=== PATIENT | female | born 1980 | race Caucasian/White ===

== ENCOUNTER 2020-11-17 15:53 | Inpatient (IN) | payer OTHER ==
[2020-11-17] VITALS (14 sets, daily range): BP systolic 85–141; BP diastolic 39–85
[~2020-11-17] VITALS: Ht 165.1 cm; Wt 93.9 kg
--- NOTE | 2020-11-17 16:09 | PDOC1 ---
History and Physical Date of Admission Date of Admission DATE: 11/17/20 TIME: 16:16 Identification/Chief Complaint Chief Complaint Confusion Source Source: Caregiver, Chart review History of Present Illness History of Present Illness Ms Phipps is a 40yo F w/ PMHx morbid obesity s/p gastric bypass ini 2008, alcohol use disorder, Anxiety, Depression, Hypertension, IBS, Kidney Stones, Pancreatitis, chronic back pain, and smoker who presented to [facility] ED in [place], [place] via EMS for altered mental status. Her called because patient has been on couch has been increasingly confused over the past 5 days. Per EMS report she had a fall a few days ago when she was intoxicated. EKG appears sinus tachycardia, heart rate [address] elevation or depression, no ectopy. Normal intervals. T waves unremarkable. CT chest abdomen pelvis revealed severe hepatic steatosis and cholelithiasis with hydropic gallbladder and gastric bypass, no other acute findings. CT head with no acute hemorrhage. Labs with WBC 7.5, Hb 6.4, platelets 237, Na 130, K 4.3, BUN 10, Cr 2.3, glucose 72, Trop 0, BNP 939, Albumin 1.8, INR 4.9, ammonia 44, bilirubin 11, AST 2744, ALT 400, Alk phos 172, Lipase 42 Given concern for acute liver failure and acute renal failure patient accepted for transfer to [facility] for specialist consultation. Seen bedside with her , patient following very few commands, otherwise drowsy, not oriented, moaning, not articulating well or making meaningful eye contact. notes that sometimes this might happen for a week at a time at home and frightens their 11 and 17 year old children. He notes "it has been a rough year". She was [facility] October after a DUI and parole violation of intoxication with alcohol that led to her serving 17 [place]. She has struggled with substance use disorder, specifically alcohol, according to her since her gastric bypass in 2008, has been previously treated for this as well as pancreatitis. Admitted to ICU for further treatment. Due to the inability to maintain a peripheral IV and concern for potential uncontrollable bleeding in the neck a right femoral central venous catheter was placed for medications, blood transfusion and lab draw purposes for frequent lab draws. Past Medical History Cardiovascular: HTN GI: GERD, GI bleed, Gastritis, Peptic Ulcer disease Psych: Anxiety, Addictions, Depression Past Surgical History Past Surgical History Gastric bypass, peptic ulcer Past Surgical History: Family History Family History: Family History Unknown Social History Smoke: 1 pack per day ALCOHOL: heavy Drugs: None Allergies Allergies: Coded Allergies: No Known Drug Allergies (Unverified , 11/17/20) ROS Review of System Unable to obtain due to confusiono Physical Exam General: Alert, Cooperative, moderate distress HEENT: EOMI, Other (Adentulous, icteric sclera) Lungs: Clear to auscultation, Normal air movement Heart: S1S2, RRR, no thrills, no rubs, no gallops, no murmurs Abdomen: Normal bowel sounds, Soft, Other (RUQ pain, slight fluid wave) Rectal Exam: not examined Extremities: No clubbing, No cyanosis, No edema, Normal pulses, No tenderness/swelling Skin: No rashes, No breakdown, No significant lesion Neuro: Sensation intact, Cranial nerves 3-12 NL, Reflexes 2+, Other (Moving all 4 limbs) Psych/Mental Status: Other (Obtunded) Images Images CT CHEST_ABDOMEN_ AND PELVIS WITHOUT CONTRAST 11/17/2020 10:51 AM INDICATION: Altered mental status, liver failure COMPARISON: CT abdomen/pelvis 03/05/2020 TECHNIQUE: Multiple axial CT images of the chest, abdomen and pelvis were obtained without intravenous contrast. Coronal and sagittal reformats are provided. FINDINGS: Evaluation degraded by motion artifact. Thyroid gland is normal in appearance. No pathologically enlarged thoracic lymph nodes. Heart size within normal limits. Thoracic aorta is normal in course and caliber. No pleural effusions, pulmonary vascular congestion or pneumothorax. Lungs are clear. No suspicious solid noncalcified pulmonary nodules. Severe hepatic steatosis. There is a hydropic gallbladder measuring 6.3 cm in transverse dimension. Cholelithiasis. Spleen and adrenal glands are normal in appearance. Mild atrophy of the pancreas. Abdominal aorta is normal in course and caliber. No pathologically enlarged lymph nodes are identified in abdomen and pelvis within the limitations of motion artifact. No free fluid or free intraperitoneal air. Gastric bypass post surgical changes. Bowel is partly limited by motion artifact. No bowel obstruction or inflammation. Limited evaluation of the appendix secondary to motion. Appendix is not definitively visualized. No pericecal inflammatory changes are identified. Uterus and adnexa are normal by CT. Wood catheter decompresses the urinary bladder. No calculi identified within the kidneys, ureters or urinary bladder. No hydronephrosis. No suspicious osseous abnormality is identified. Chronic appearing superior endplate compression deformities identified at L1 with percent height loss and superior endplate retropulsion. Schmorl's nodes are identified at T11-T12 with mild height loss. Vertebral segmentation anomaly identified at T9-T10 and T5-T6 as well as at the craniocervical junction. Findings are limited evaluation secondary motion. IMPRESSION: Evaluation is degraded by motion artifact. Severe hepatic steatosis. Correlate with hepatic enzymes to assess for steatohepatitis. Gastric bypass post surgical changes are identified without bowel obstruction or inflammation. Cholelithiasis with hydropic gallbladder. Correlate with right upper quadrant ultrasound assess for cholecystitis. 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 If there is persistent clinical concern, dedicated CT thoracic spine with sedation could be of benefit. CT HEAD AND MAXILLOFACIAL WO, CT CERVICAL SPINE WO History: Reason: fall, ams, face injury, jaundice / Spl. Instructions: Comparison: June 08, 2018 Technique: Noncontrast CT imaging was performed of the head, maxillofacial and cervical spine. Coronal and sagittal reconstructions were performed. Exposure: One or more of the following individualized dose reduction techniques were utilized for this examination: 1. Automated exposure control 2. Adjustment of the mA and/or kV according to patient size 3. Use of iterative reconstruction technique. Findings: Head CT: No intracranial hemorrhage. No mass effect. No hydrocephalus. Extra- axial spaces are unremarkable. Frontal scalp soft tissue wound. Maxillofacial CT: Motion degraded evaluation. The entire mandible not included in the image. No definite acute fracture although degraded evaluation especially concerned imaged portions of the mandible. Orbits are unremarkable. Paranasal sinuses and mastoid air cells are clear. No acute calvarial fracture. Cervical spine CT: Motion degraded evaluation. Right upper chest subcutaneous gas. Normal vertebral body alignment. Significantly degraded evaluation of the upper cervical spine and upper thoracic spine due to patient motion. No definite acute fracture. Mild degenerative disc changes. No significant canal narrowing. No definite neuroforaminal narrowing although evaluation is degraded. Soft tissues are unremarkable. Impression: Head CT: 1. No acute intracranial abnormality. Maxillofacial CT: 1. Degraded evaluation due to patient motion. The mandible is not entirely evaluated. No definite fracture. If persistent clinical concern, recommend repeat imaging. Cervical spine CT: CT HEAD AND MAXILLOFACIAL WO, CT CERVICAL SPINE WO History: Reason: fall, ams, face injury, jaundice / Spl. Instructions: Comparison: June 08, 2018 Technique: Noncontrast CT imaging was performed of the head, maxillofacial and cervical spine. Coronal and sagittal reconstructions were performed. Exposure: One or more of the following individualized dose reduction techniques were utilized for this examination: 1. Automated exposure control 2. Adjustment of the mA and/or kV according to patient size 3. Use of iterative reconstruction technique. Findings: Head CT: No intracranial hemorrhage. No mass effect. No hydrocephalus. Extra- axial spaces are unremarkable. Frontal scalp soft tissue wound. Maxillofacial CT: Motion degraded evaluation. The entire mandible not included in the image. No definite acute fracture although degraded evaluation especially concerned imaged portions of the mandible. Orbits are unremarkable. Paranasal sinuses and mastoid air cells are clear. No acute calvarial fracture. Cervical spine CT: Motion degraded evaluation. Right upper chest subcutaneous gas. Normal vertebral body alignment. Significantly degraded evaluation of the upper cervical spine and upper thoracic spine due to patient motion. No definite acute fracture. Mild degenerative disc changes. No significant canal narrowing. No definite neuroforaminal narrowing although evaluation is degraded. Soft tissues are unremarkable. Impression: Head CT: 1. No acute intracranial abnormality. Maxillofacial CT: 1. Degraded evaluation due to patient motion. The mandible is not entirely evaluated. No definite fracture. If persistent clinical concern, recommend repea t imaging. Cervical spine CT: 1. Significantly degraded evaluation due to patient motion. No definite fracture. Recommend repeat imaging when patient's condition allows. VTE Prophylaxis Ordered VTE Prophylaxis Devices: Yes VTE Pharmacological Prophylaxi: Contraindicated Assessment/Plan Assessment/Plan A/P: Acute metabolic encephalopathy - seems likely hepatic in origin due fatty liver and alcoholic liver disease likely. Lactulose enemas prn until confusion clears. Rectal tube. GI consulted Acute anemia - likely GI loss. H/o PUD per , unclear if this was an anastomotic ulcer or otherwise, he will obtain old medical records. Transfuse for Hb <7. Repeat Hb. IV PPI, IV octreotide Acute Renal failure - likely vasomotor nephropathy. Will fluid challenge with normal saline, prn daily colloidal fluid with albumin as well. Monitor renal function. may be hepatorenal Liver failure, acute - MELD score on admit is 40. GI consulted. Avoid hepatotoxins. No history of acetaminophen use per . Will maintain BP. Trend hepatic function Acute hepatitis - appears alcoholic. Will need to abstain from alcohol and needs referral to transplant histology aide in the future if safely discharged eventually Hyponatremia - likely hepatic vs hypovolemic. Will fluid challenge, monitor sodium. Overall worsens her prognosis Hydropic gallbladder - incidentally noted on CT. Ultrasound will better elucidate if this is acute cholecystitis Morbid obesity s/p gastric bypass in 2008 - no significant f/u with bariatrics per . Alcohol use disorder - ongoing. Will need counseling and abstinence as above Anxiety, Depression - will reconcile meds, when taking po can slowly reintroduce Hypertension - currently hypotensive. May start BB to decrease splanchnic blood flow when she can tolerate it Smoker - will elder counselor on cessation when patient is more alert FEN -NPO PPX - SCDs, PPI gtt FULL CODE Dispo - ICU for above CC time 49 minutes Justifications for Admission Other Justification RELL MCDANIEL MD Nov 17, 2020 16:09
[2020-11-17] MEDS ORDERED: 0.9 % SODIUM CHLORIDE 10 ML DISP.SYRIN. IV PRN (16:15)
[2020-11-17] MEDS ORDERED: LACTULOSE 20 GM/30 ML SOLUTION. PO PRN (16:15)
[2020-11-17] MEDS ORDERED: ONDANSETRON PF 4 MG/2 ML VIAL. IVP PRN (16:15)
[2020-11-17] MEDS ORDERED: BISACODYL 10 MG SUPP.RECT. PR PRN (16:15)
[2020-11-17] MEDS ORDERED: IV NORMAL SALINE 1000ML BAG 1,000 ML IV SCH (16:15)
[2020-11-17] MEDS ORDERED: PROCHLORPERAZINE 10 MG/2 ML VIAL. IVP PRN (16:15)
--- NOTE | 2020-11-17 16:49 | NUR ---
Patient admit from [facility]. Arrived at 1545 with 1 unit of prbc transfusing. Blood transfusion ended at 1618. VS wnl on room air. Dr Jean admitting, consults called to GI and Nephrology. Patient alert to self only. currently at bedside. Will monitor
[2020-11-17] MEDS ORDERED: LACTULOSE for RECTAL 200 GM/300 ML SOLUTION. PR SCH (18:00)
[2020-11-17] MEDS ORDERED: PANTOPRAZOLE IV PUSH 40 MG VIAL. IVP ONE (18:00)
[2020-11-17] MEDS: LACTULOSE for RECTAL 200 GM/300 ML SOLUTION. PR SCH ×3 (18:00→22:55)
[2020-11-17 18:18] LABS: HEMATOCRIT 20.8 % (36.0-47.0); HEMOGLOBIN 6.7 g/dL (12.0-15.5)
[2020-11-17] MEDS: SODIUM BICARBONATE VIAL 75 MEQ in IV 1/2 NORMAL SALINE 1,000 ML IV SCH (18:28)
[2020-11-17] MEDS: OCTREOTIDE 500 MCG in IV NORMAL SALINE 100ML 100 ML IV PRN (18:29)
[2020-11-17] MEDS ORDERED: MAGNESIUM SULFATE 2GM 50 ML IV ONE (18:30)
[2020-11-17] MEDS: PANTOPRAZOLE SODIUM IV DRIP 80 MG in IV NORMAL SALINE 100ML 100 ML IV SCH (18:37)
--- NOTE | 2020-11-17 21:55 | RAD ---
Examination: Ultrasound abdomen complete HISTORY: History of cirrhosis COMPARISON: None available FINDINGS: The aorta, spleen, IVC, pancreas are not well-visualized due to bowel gas. The liver length measures 17.4 cm . Increased echogenicity identified in the liver likely hepatic steatosis. Mild increased mateo ntified within the gallbladder likely sludge. The gallbladder is mildly distended. The gallbladder wa ll thickness measures 1.5 mm. The right kidney measures 10.7 x 6.9 x 3.9 cm. The left kidney measures 9.1 x 5.0 x 4.4 cm. IMPRESSION: 1. Hepatic steatosis. 2. Hydropic gallbladder with gallbladder sludge. Electronically signed by: Medhat Fernandes MD (11/17/2020 9:53 PM) [id number]
[2020-11-17 23:26] LABS: HEMATOCRIT 21.9 % (36.0-47.0); RED BLOOD COUNT 2.41 x10^6/uL (3.50-5.40); RED CELL DISTRIBUTION WIDTH 20.2 % (11.5-14.5); WHITE BLOOD COUNT 5.4 x10^3/uL (4.0-11.0)
[2020-11-18] VITALS (29 sets, daily range): BP systolic 83–151; BP diastolic 40–87
[2020-11-18] MEDS ORDERED: ALBUMIN HUMAN 5% 500 ML IV PRN (00:15)
[2020-11-18] MEDS: LACTULOSE for RECTAL 200 GM/300 ML SOLUTION. PR SCH ×12 (01:38→22:00)
[2020-11-18] MEDS: SODIUM BICARBONATE VIAL 75 MEQ in IV 1/2 NORMAL SALINE 1,000 ML IV SCH ×3 (02:04→20:21)
--- NOTE | 2020-11-18 02:09 | NUR ---
patient not tolerating lactulose every [address] full dose with dilution in rectal tube. Given every 2 hours. Will continue to monitor.
[2020-11-18] MEDS: OCTREOTIDE 500 MCG in IV NORMAL SALINE 100ML 100 ML IV PRN ×2 (02:45→12:43)
[2020-11-18] MEDS: PANTOPRAZOLE SODIUM IV DRIP 80 MG in IV NORMAL SALINE 100ML 100 ML IV SCH ×2 (02:46→14:00)
[2020-11-18 06:02] LABS: ALBUMIN 1.9 g/dL (3.4-5.0); ALBUMIN/GLOBULIN RATIO 0.7 (1.0-1.7); CREATININE 1.8 mg/dL (0.6-1.0); TOTAL PROTEIN 4.7 g/dL (6.4-8.2)
[2020-11-18 06:37] LABS: BASO % 0 % (0-3); EOS % 1 % (0-3); HEMATOCRIT 21.3 % (36.0-47.0); LYMPH # 0.6 x10^3/uL (1.0-4.8); LYMPH % 15 % (24-48); MEAN CORPUSCULAR HEMOGLOBIN 29 pg (25-35); MEAN CORPUSCULAR HGB CONC 32 g/dL (31-37); MEAN CORPUSCULAR VOLUME 91 fL (79-100); MONO # 0.4 x10^3/uL (0.0-1.1); MONO % 10 % (0-9); NEUT % 73 % (31-73); PLATELET COUNT 187 x10^3/uL (140-400); RED BLOOD COUNT 2.35 x10^6/uL (3.50-5.40); RED CELL DISTRIBUTION WIDTH 19.2 % (11.5-14.5)
[2020-11-18 06:51] LABS: HEMOGLOBIN 6.9 g/dL (12.0-15.5)
[2020-11-18 06:52] LABS: PROTHROMBIN TIME PATIENT 28.1 SEC (11.7-14.0)
[2020-11-18] MEDS ORDERED: PANTOPRAZOLE IV PUSH 40 MG VIAL. IVP SCH (07:30)
[2020-11-18] MEDS ORDERED: LACTULOSE 20 GM/30 ML SOLUTION. PO PRN ×2 (08:00→08:30)
--- NOTE | 2020-11-18 08:57 | PDOC ---
PROGRESS NOTES Date of Service: DATE: 11/18/20 TIME: 08:56 Chief Complaint Chief Complaint mpression: Head CT: 1. No acute intracranial abnormality. Maxillofacial CT: 1. Degraded evaluation due to patient motion. The mandible is not entirely evaluated. No definite fracture. If persistent clinical concern, recommend repeat imaging. Cervical spine CT: 1. Significantly degraded evaluation due to patient motion. No definite fracture. Recommend repeat imaging when patient's condition allows. VTE Prophylaxis Ordered VTE Prophylaxis Devices: Yes VTE Pharmacological Prophylaxi: Contraindicated Assessment/Plan Assessment/Plan A/P: Acute metabolic encephalopathy - seems likely hepatic in origin due fatty liver and alcoholic liver disease likely. Lactulose enemas prn until confusion clears. Rectal tube. GI consulted Acute anemia - likely GI loss. H/o PUD per , unclear if this was an anastomotic ulcer or otherwise, he will obtain old medical records. Transfuse for Hb <7. Repeat Hb. IV PPI, IV octreotide Acute Renal failure - likely vasomotor nephropathy. Will fluid challenge with normal saline, prn daily colloidal fluid with albumin as well. Monitor renal function. may be hepatorenal Liver failure, acute - MELD score on admit is 40. GI consulted. Avoid hepatotoxins. No history of acetaminophen use per . Will maintain BP. Trend hepatic function Acute hepatitis - appears alcoholic. Will need to abstain from alcohol and needs referral to transplant mycologist in the future if safely discharged eventually Hyponatremia - likely hepatic vs hypovolemic. Will fluid challenge, monitor sodium. Overall worsens her prognosis Hydropic gallbladder - incidentally noted on CT. Ultrasound will better elucidate if this is acute cholecystitis Hydropic gallbladder with gallbladder sludge. Morbid obesity s/p gastric bypass in 2008 - no significant f/u with bariatrics p er . Alcohol use disorder - ongoing. Will need counseling and abstinence as above Anxiety, Depression - will reconcile meds, when taking po can slowly reintroduce Hypertension - currently hypotensive. May start BB to decrease splanchnic blood flow when she can tolerate it Smoker - will queen's counsel on cessation when patient is more alert EARL severe protein-caloric malnutrition FEN -NPO PPX - SCDs, PPI gtt FULL CODE Dispo - ICU for above NEPHROLOGY CONSULT gen surgery consult re ct abdomen, abd pain ID CONSULT BLOOD CULT Emperic iv zosyn pending ID consult procalcitonin cxr neurology consult overall prognosis seems poor CC time 33 minutes Justifications for Admission Justifications for Admission Other Justification History of Present Illness History of Present Illness Identification/Chief Complaint Chief Complaint Confusion Source Source: Caregiver, Chart review History of Present Illness History of Present Illness Ms Phipps is a 40yo F w/ PMHx morbid obesity s/p gastric bypass ini 2008, alcohol use disorder, Anxiety, Depression, Hypertension, IBS, Kidney Stones, Rodriguez creatitis, chronic back pain, and smoker who presented to [facility] ED in [place], [place] via EMS for altered mental status. Her called because patient has been on couch has been increasingly confused over the past 5 days. Per EMS report she had a fall a few days ago when she was intoxicated. EKG appears sinus tachycardia, heart rate [address] elevation or depression, no ectopy. Normal intervals. T waves unremarkable. CT chest abdomen pelvis revealed severe hepatic steatosis and cholelithiasis with hydropic gallbladder and gastric bypass, no other acute findings. CT head with no acute hemorrhage. Labs with WBC 7.5, Hb 6.4, platelets 237, Na 130, K 4.3, BUN 10, Cr 2.3, glucose 72, Trop 0, BNP 939, Albumin 1.8, INR 4.9, ammonia 44, bilirubin 11, AST 2744, ALT 400, Alk phos 172, Lipase 42 Given concern for acute liver failure and acute renal failure patient accepted for transfer to [facility] for specialist consultation. Seen bedside with her , patient following very few commands, otherwise drowsy, not oriented, moaning, not articulating well or making meaningful eye contact. notes that sometimes this might happen for a week at a time at home and frightens their 11 and 17 year old children. He notes "it has been a rough year". She was released from incarceration in federal long term last October after a DUI and parole violation of intoxication with alcohol that led to her serving 17 months in federal long term [place]. She has struggled with substance use disorder, specifically alcohol, according to her since her gastric bypass in 2008, has been previously treated for this as well as pancreatitis. Admitted to ICU for further treatment. Due to the inability to maintain a peripheral IV and concern for potential uncontrollable bleeding in the neck a right femoral central venous catheter was placed for medications, blood transfusion and lab draw purposes for frequent lab draws. Past Medical History Cardiovascular: HTN GI: GERD, GI bleed, Gastritis, Peptic Ulcer disease Psych: Anxiety, Addictions, Depression Past Surgical History Past Surgical History Gastric bypass, peptic ulcer Past Surgical History: Family History Family History: Family History Unknown Social History Smoke: 1 pack per day ALCOHOL: heavy Drugs: None Allergies Allergies: Coded Allergies: No Known Drug Allergies (Unverified , 11/17/20) ROS Review of System Unable to obtain due to confusion, but c/o abd pain to me 11-18 VERY ANEMIC, HYPOTENSIVE OVERNIGHT ECHo pending, cardiology consulted nh4 pending ID CONSULT NEUROLOGY CONSULT Gen surg consult 34 min cc time Vitals Vitals Vital Signs Date Time Temp Pulse Resp B/P (MAP) Pulse Ox O2 Delivery O2 Flow Rate FiO2 11/18/20 06:00 87 14 138/63 (88) 96 Room Air 11/18/20 04:00 97.8 97.8 Physical Exam General: Alert, Cooperative, mild distress, moderate distress Heart: Regular rate Lungs: Clear Abdomen: Normal bowel sounds, Soft, Other (RUQ pain, slight fluid wave) Extremities: No clubbing, No cyanosis, No edema, Normal pulses, No tenderness/swelling Skin: No rashes, No breakdown, No significant lesion Labs LABS Examination: Ultrasound abdomen complete HISTORY: History of cirrhosis COMPARISON: None available FINDINGS: The aorta, spleen, IVC, pancreas are not well-visualized due to bowel gas. The liver length measures 17.4 cm . Increased echogenicity identified in the liver likely hepatic steatosis. Mild increased identified within the gallbladder likely sludge. The gallbladder is mildly distended. The gallbladder wall thickness measures 1.5 mm. The right kidney measures 10.7 x 6.9 x 3.9 cm. The left kidney measures 9.1 x 5.0 x 4.4 cm. IMPRESSION: 1. Hepatic steatosis. 2. Hydropic gallbladder with gallbladder sludge. Electronically signed by: Medhat Fernandes MD (11/17/2020 9:53 PM) [id number] Laboratory Tests Test 11/17/20 18:00 11/17/20 18:10 11/17/20 23:15 11/18/20 05:10 Hemoglobin 6.7 g/dL (12.0-15.5) 7.0 g/dL (12.0-15.5) 6.9 g/dL (12.0-15.5) Hematocrit 20.8 % (36.0-47.0) 21.9 % (36.0-47.0) 21.3 % (36.0-47.0) Mean Corpuscular Hemoglobin Concent 32 g/dL (31-37) 32 g/dL (31-37) 32 g/dL (31-37) Creatine Kinase 64 U/L (26-192) Hepatitis A IgM Antibody Nonreactive (Nonreactive) Hepatitis B Surface Antigen Nonreactive (Nonreactive) Hepatitis B Core IgM Antibody Nonreactive (Nonreactive) Hepatitis C IgG Antibody Nonreactive (Nonreactive) SARS-CoV-2 Antigen (Rapid) Negative (NEGATIVE) White Blood Count 5.4 x10^3/uL (4.0-11.0) 4.0 x10^3/uL (4.0-11.0) Red Blood Count 2.41 x10^6/uL (3.50-5.40) 2.35 x10^6/uL (3.50-5.40) Mean Corpuscular Volume 91 fL (79-100) 91 fL (79-100) Mean Corpuscular Hemoglobin 29 pg (25-35) 29 pg (25-35) Red Cell Distribution Width 20.2 % (11.5-14.5) 19.2 % (11.5-14.5) Platelet Count 218 x10^3/uL (140-400) 187 x10^3/uL (140-400) Neutrophils (%) (Auto) 73 % (31-73) Lymphocytes (%) (Auto) 15 % (24-48) Monocytes (%) (Auto) 10 % (0-9) Eosinophils (%) (Auto) 1 % (0-3) Basophils (%) (Auto) 0 % (0-3) Neutrophils # (Auto) 3.0 x10^3/uL (1.8-7.7) Lymphocytes # (Auto) 0.6 x10^3/uL (1.0-4.8) Monocytes # (Auto) 0.4 x10^3/uL (0.0-1.1) Eosinophils # (Auto) 0.0 x10^3/uL (0.0-0.7) Basophils # (Auto) 0.0 x10^3/uL (0.0-0.2) Prothrombin Time 28.1 SEC (11.7-14.0) Prothromb Time International Ratio 2.6 (0.8-1.1) Sodium Level 137 mmol/L (136-145) Potassium Level 4.0 mmol/L (3.5-5.1) Chloride Level 101 mmol/L (98-107) Carbon Dioxide Level 22 mmol/L (21-32) Anion Gap 14 (6-14) Blood Urea Nitrogen 10 mg/dL (7-20) Creatinine 1.8 mg/dL (0.6-1.0) Estimated GFR (Cockcroft-Gault) 31.0 BUN/Creatinine Ratio 6 (6-20) Glucose Level 73 mg/dL (70-99) Calcium Level 7.0 mg/dL (8.5-10.1) Total Bilirubin 9.0 mg/dL (0.2-1.0) Aspartate Amino Transf (AST/SGOT) 1172 U/L (15-37) Alanine Aminotransferase (ALT/SGPT) 234 U/L (14-59) Alkaline Phosphatase 142 U/L (46-116) Total Protein 4.7 g/dL (6.4-8.2) Albumin 1.9 g/dL (3.4-5.0) Albumin/Globulin Ratio 0.7 (1.0-1.7) Comment Review of Relevant I have reviewed the following items josue (where applicable) has been applied. Labs Laboratory Tests Test 11/17/20 18:00 11/17/20 18:10 11/17/20 23:15 11/18/20 05:10 Hemoglobin 6.7 g/dL (12.0-15.5) 7.0 g/dL (12.0-15.5) 6.9 g/dL (12.0-15.5) Hematocrit 20.8 % (36.0-47.0) 21.9 % (36.0-47.0) 21.3 % (36.0-47.0) Mean Corpuscular Hemoglobin Concent 32 g/dL (31-37) 32 g/dL (31-37) 32 g/dL (31-37) Creatine Kinase 64 U/L (26-192) Hepatitis A IgM Antibody Nonreactive (Nonreactive) Hepatitis B Surface Antigen Nonreactive (Nonreactive) Hepatitis B Core IgM Antibody Nonreactive (Nonreactive) Hepatitis C IgG Antibody Nonreactive (Nonreactive) SARS-CoV-2 Antigen (Rapid) Negative (NEGATIVE) White Blood Count 5.4 x10^3/uL (4.0-11.0) 4.0 x10^3/uL (4.0-11.0) Red Blood Count 2.41 x10^6/uL (3.50-5.40) 2.35 x10^6/uL (3.50-5.40) Mean Corpuscular Volume 91 fL (79-100) 91 fL (79-100) Mean Corpuscular Hemoglobin 29 pg (25-35) 29 pg (25-35) Red Cell Distribution Width 20.2 % (11.5-14.5) 19.2 % (11.5-14.5) Platelet Count 218 x10^3/uL (140-400) 187 x10^3/uL (140-400) Neutrophils (%) (Auto) 73 % (31-73) Lymphocytes (%) (Auto) 15 % (24-48) Monocytes (%) (Auto) 10 % (0-9) Eosinophils (%) (Auto) 1 % (0-3) Basophils (%) (Auto) 0 % (0-3) Neutrophils # (Auto) 3.0 x10^3/uL (1.8-7.7) Lymphocytes # (Auto) 0.6 x10^3/uL (1.0-4.8) Monocytes # (Auto) 0.4 x10^3/uL (0.0-1.1) Eosinophils # (Auto) 0.0 x10^3/uL (0.0-0.7) Basophils # (Auto) 0.0 x10^3/uL (0.0-0.2) Prothrombin Time 28.1 SEC (11.7-14.0) Prothromb Time International Ratio 2.6 (0.8-1.1) Sodium Level 137 mmol/L (136-145) Potassium Level 4.0 mmol/L (3.5-5.1) Chloride Level 101 mmol/L (98-107) Carbon Dioxide Level 22 mmol/L (21-32) Anion Gap 14 (6-14) Blood Urea Nitrogen 10 mg/dL (7-20) Creatinine 1.8 mg/dL (0.6-1.0) Estimated GFR (Cockcroft-Gault) 31.0 BUN/Creatinine Ratio 6 (6-20) Glucose Level 73 mg/dL (70-99) Calcium Level 7.0 mg/dL (8.5-10.1) Total Bilirubin 9.0 mg/dL (0.2-1.0) Aspartate Amino Transf (AST/SGOT) 1172 U/L (15-37) Alanine Aminotransferase (ALT/SGPT) 234 U/L (14-59) Alkaline Phosphatase 142 U/L (46-116) Total Protein 4.7 g/dL (6.4-8.2) Albumin 1.9 g/dL (3.4-5.0) Albumin/Globulin Ratio 0.7 (1.0-1.7) Laboratory Tests Test 11/17/20 18:00 11/17/20 18:10 11/17/20 23:15 11/18/20 05:10 Hemoglobin 6.7 g/dL (12.0-15.5) 7.0 g/dL (12.0-15.5) 6.9 g/dL (12.0-15.5) Hematocrit 20.8 % (36.0-47.0) 21.9 % (36.0-47.0) 21.3 % (36.0-47.0) Mean Corpuscular Hemoglobin Concent 32 g/dL (31-37) 32 g/dL (31-37) 32 g/dL (31-37) Creatine Kinase 64 U/L (26-192) Hepatitis A IgM Antibody Nonreactive (Nonreactive) Hepatitis B Surface Antigen Nonreactive (Nonreactive) Hepatitis B Core IgM Antibody Nonreactive (Nonreactive) Hepatitis C IgG Antibody Nonreactive (Nonreactive) SARS-CoV-2 Antigen (Rapid) Negative (NEGATIVE) White Blood Count 5.4 x10^3/uL (4.0-11.0) 4.0 x10^3/uL (4.0-11.0) Red Blood Count 2.41 x10^6/uL (3.50-5.40) 2.35 x10^6/uL (3.50-5.40) Mean Corpuscular Volume 91 fL (79-100) 91 fL (79-100) Mean Corpuscular Hemoglobin 29 pg (25-35) 29 pg (25-35) Red Cell Distribution Width 20.2 % (11.5-14.5) 19.2 % (11.5-14.5) Platelet Count 218 x10^3/uL (140-400) 187 x10^3/uL (140-400) Neutrophils (%) (Auto) 73 % (31-73) Lymphocytes (%) (Auto) 15 % (24-48) Monocytes (%) (Auto) 10 % (0-9) Eosinophils (%) (Auto) 1 % (0-3) Basophils (%) (Auto) 0 % (0-3) Neutrophils # (Auto) 3.0 x10^3/uL (1.8-7.7) Lymphocytes # (Auto) 0.6 x10^3/uL (1.0-4.8) Monocytes # (Auto) 0.4 x10^3/uL (0.0-1.1) Eosinophils # (Auto) 0.0 x10^3/uL (0.0-0.7) Basophils # (Auto) 0.0 x10^3/uL (0.0-0.2) Prothrombin Time 28.1 SEC (11.7-14.0) Prothromb Time International Ratio 2.6 (0.8-1.1) Sodium Level 137 mmol/L (136-145) Potassium Level 4.0 mmol/L (3.5-5.1) Chloride Level 101 mmol/L (98-107) Carbon Dioxide Level 22 mmol/L (21-32) Anion Gap 14 (6-14) Blood Urea Nitrogen 10 mg/dL (7-20) Creatinine 1.8 mg/dL (0.6-1.0) Estimated GFR (Cockcroft-Gault) 31.0 BUN/Creatinine Ratio 6 (6-20) Glucose Level 73 mg/dL (70-99) Calcium Level 7.0 mg/dL (8.5-10.1) Total Bilirubin 9.0 mg/dL (0.2-1.0) Aspartate Amino Transf (AST/SGOT) 1172 U/L (15-37) Alanine Aminotransferase (ALT/SGPT) 234 U/L (14-59) Alkaline Phosphatase 142 U/L (46-116) Total Protein 4.7 g/dL (6.4-8.2) Albumin 1.9 g/dL (3.4-5.0) Albumin/Globulin Ratio 0.7 (1.0-1.7) Medications Current Medications Lorazepam (Ativan Inj) 0.5 mg PRN Q6HRS PRN IVP ANXIETY / AGITATION Last administered on 11/17/20at 23:04; Start 11/17/20 at 16:15 Ondansetron HCl (Zofran) 4 mg PRN Q6HRS PRN IVP NAUSEA/VOMITING; Start 11/17/20 at 16:15 Prochlorperazine Edisylate (Compazine) 5 mg PRN Q6HRS PRN IVP NAUSEA/VOMITING; Start 11/17/20 at 16:15 Info (Icu Electrolyte Protocol) 1 ea DAILY MC ; Start 11/18/20 at 09:00 Sodium Chloride (Normal Saline Flush) 3 ml QSHIFT PRN IV AFTER MEDS AND BLOOD DRAWS; Start 11/17/20 at 16:15 Sodium Chloride 1,000 ml @ 1,000 mls/hr Q1H IV Last administered on 11/17/20at 17:50; Start 11/17/20 at 16:15; Stop 11/17/20 at 17:14; Status DC Fentanyl Citrate (Fentanyl 2ml Vial) 25 mcg PRN Q1HR PRN IV SEVERE PAIN 7-10; Start 11/17/20 at 16:15 Lactulose (Lactulose) 20 gm PRN Q12HR PRN PO CONSTIPATION; Start 11/17/20 at 16:15; Stop 11/17/20 at 17:40; Status DC Bisacodyl (Dulcolax Supp) 10 mg PRN DAILY PRN NE CONSTIPATION; Start 11/17/20 at 16:15 Pantoprazole Sodium (PROTONIX VIAL for IV PUSH) 40 mg DAILYAC IVP ; Start 11/18/20 at 07:30; Stop 11/17/20 at 17:40; Status DC Lactulose (LACTULOSE 300ML for RECTAL) 200 gm Q6HRS NE ; Start 11/17/20 at 18:00; Stop 11/17/20 at 17:40; Status DC Sodium Bicarbonate 75 meq/Sodium Chloride 1,075 ml @ 125 mls/hr Q8H36M IV Last administered on 11/18/20at 02:04; Start 11/17/20 at 17:00 Pantoprazole Sodium (PROTONIX VIAL for IV PUSH) 80 mg 1X ONCE IVP Last administered on 11/17/20at 17:50; Start 11/17/20 at 18:00; Stop 11/17/20 at 18:01; Status DC Pantoprazole Sodium 80 mg/ Sodium Chloride 100 ml @ 10 mls/hr Q10H IV Last administered on 11/18/20at 02:46; Start 11/17/20 at 18:00 Octreotide Acetate 500 mcg/ Sodium Chloride 101 ml @ 10.1 mls/hr CONT PRN IV SEE I/O RECORD Last administered on 11/18/20at 02:45; Start 11/17/20 at 17:30 Lactulose (LACTULOSE 300ML for RECTAL) 200 gm Q2HR NE Last administered on 11/17/20at 22:55; Start 11/17/20 at 18:00 Magnesium Sulfate 50 ml @ 25 mls/hr 1X ONCE IV Last administered on 11/17/20at 18:34; Start 11/17/20 at 18:30; Stop 11/17/20 at 20:29; Status DC Albumin Human 500 ml @ 125 mls/hr PRN DAILY PRN IV HYPOTENSION Last administered on 11/18/20at 01:47; Start 11/18/20 at 00:15 Multivitamins 10 ml/Thiamine HCl 100 mg/Folic Acid 1 mg/Sodium Chloride 1,011.2 ml @ 100 mls/ hr DAILY IV ; Start 11/18/20 at 09:00; Stop 11/22/20 at 19:07 Thiamine HCl 100 mg/Dextrose 51 ml @ 100 mls/hr DAILY IV ; Start 11/23/20 at 09:00; Stop 11/27/20 at 09:31 Lorazepam (Ativan) 2 mg Q6H PO ; Start 11/18/20 at 08:00; Stop 11/19/20 at 14:01 Lactulose (Lactulose) 30 gm PRN DAILY PRN PO GI SYMPTOMS; Start 11/18/20 at 08:00; Status UNV Lactulose (Lactulose) 30 gm PRN DAILY PRN PO GI SYMPTOMS; Start 11/18/20 at 08:30; Status UNV Vitals/I & O Vital Sign - Last 24 Hours 11/17/20 11/17/20 11/17/2011/17/21 15:45 16:00 16:00 16:15 Temp 98.0 98.0 Pulse 112 108 96 Resp 20 16 18 B/P (MAP) 126/64 (84) 103/66 (78) 112/52 (72) Pulse Ox 100 100 98 O2 Delivery Room Air Room Air Room Air Room Air 11/17/20 11/17/20 11/17/20 11/17/20 16:30 16:45 17:00 17:30 Pulse 92 94 96 88 Resp 20 20 16 16 B/P (MAP) 112/60 (77) 110/58 (75) 116/61 (79) 109/57 (74) Pulse Ox 100 100 100 97 O2 Delivery Room Air Room Air Room Air Room Air 11/17/20 11/17/20 11/17/20 11/17/20 18:00 18:30 19:00 20:00 Pulse 104 116 94 Resp 18 16 18 B/P (MAP) 134/85 (101) 141/77 (98) 89/50 (63) Pulse Ox 99 100 97 O2 Delivery Room Air Room Air Room Air Room Air 11/17/20 11/17/20 11/17/20 11/17/20 20:00 21:00 22:00 23:00 Temp 97.6 97.6 Pulse 109 93 92 106 Resp 24 18 16 14 B/P (MAP) 108/79 (89) 113/64 (80) 85/39 (54) 98/62 (74) Pulse Ox 100 98 99 98 O2 Delivery Room Air Room Air Room Air Room Air 11/17/20 11/18/20 11/18/20 11/18/20 23:59 00:01 01:00 01:28 Temp 98.5 98.7 98.5 98.7 Pulse 89 92 93 Resp 14 14 16 B/P (MAP) 86/49 (61) 83/43 (56) 87/40 Pulse Ox 97 98 O2 Delivery Room Air Room Air Room Air 11/18/20 11/18/20 11/18/20 11/18/20 01:45 02:00 02:02 03:00 Temp 98.1 98.2 98.1 98.2 Pulse 90 93 90 94 Resp 14 14 16 14 B/P (MAP) 83/43 98/50 (66) 98/50 104/47 (66) Pulse Ox 98 96 O2 Delivery Room Air Room Air 11/18/20 11/18/20 11/18/20 11/18/20 03:26 04:00 04:00 05:00 Temp 97.8 97.8 97.8 97.8 Pulse 91 90 91 Resp 14 14 14 B/P (MAP) 104/52 93/49 (64) 104/45 (64) Pulse Ox 95 98 O2 Delivery Room Air Room Air Room Air 11/18/20 06:00 Pulse 87 Resp 14 B/P (MAP) 138/63 (88) Pulse Ox 96 O2 Delivery Room Air Intake and Output 11/17/20 11/17/20 11/18/20 15:00 23:00 07:00 Intake Total 50 ml 2440.1 ml Output Total 135 ml 95 ml Balance -85 ml 2345.1 ml Justicifation of Admission Dx: Justifications for Admission: Justification of Admission Dx: Yes Sepsis: Altered Mental Status Altered Mental Status: Altered Mental Status Comments: acute hepatic failure FUENTES MAIER MD Nov 18, 2020 08:57
[2020-11-18] MEDS: ELECTROLYTE (ICU) PROTOCOL. MC SCH (09:00)
[2020-11-18] MEDS: MULTIVIT INFUSN,ADULT 4,VIT K 10 ML, THIAMINE INJ 100 MG, FOLIC ACID INJ 1 MG in IV NOR... IV SCH (09:23)
[2020-11-18] MEDS ORDERED: PIP/TAZO PER PHARMACY MC PRN (12:00)
[2020-11-18] MEDS ORDERED: PHYTONADIONE 10 MG/ML AMPUL. SQ ONE (12:15)
[2020-11-18] MEDS: PIPERACILLIN/TAZOBACTAM 3.375 GM in IV NORMAL SALINE 50ML 50 ML IV SCH ×2 (12:54→18:11)
--- NOTE | 2020-11-18 12:55 | PDOC2 ---
CONSULT Date of Consult Date of Consult DATE: 11/18/20 TIME: 12:55 Reason for Consult Reason for Consult: EARL, Oliguria Referring Physician Referring Physician: Ted Identification/Chief Complaint Chief Complaint Confusion Source Source: Chart review History of Present Illness Reason for Visit: Ms Phipps is a 40yo female with chart reviewed PMHx of previous morbid obesity s/p gastric bypass ini 2008, alcohol use disorder, Anxiety, Depression, Hypertension, IBS, Kidney Stones, Pancreatitis, chronic back pain, and smoker who presented to [facility] ED in [place], [place] via EMS for altered mental status. Reportedly EMS was called by her because patient has been on couch has been increasingly confused over the past 5 days. Per EMS report she had a fall a few days ago when she was intoxicated. She was initially taken to [facility] ED and was found to be in renal failure and eventually transferred here. She is also noted to be severely jaundiced. CT chest abdomen pelvis were done at [facility], formal report of the same is not available to me but appears to have revealed severe hepatic steatosis and cholelithiasis with hydropic gallbladder and gastric bypass, no other acute findings. (As per documentation by Dr. Jean which I have reviewed) She was also noted to have a Hb 6.4, BUN 10, Cr 2.3, Albumin 1.8, and severely elevated LFTs and bilirubin. I was called with these labs by her ICU nurse yesterday for a stat consult regarding oliguria. IV fluid boluses had been ordered IV albumin had also been ordered. I changed her fluids to bicarb containing fluids due to prior low bicarb levels. This morning she is not felt to be very alert oriented per se. She is drowsy but appears to have received sedating medications as part of the CIWA protocol. Urine output has remained scant despite IV fluids running at approximately 200-2 and 50 cc an hour. She has received blood transfusion also at this time. CPK was only 64. Past Medical History Cardiovascular: HTN GI: GERD, GI bleed, Gastritis, Peptic Ulcer disease Psych: Anxiety, Addictions, Depression Past Surgical History Past Surgical History: Family History Family History: Family History Unknown Social History 1 pack per day ALCOHOL: heavy Drugs: None Current Medications Current Medications Current Medications Lorazepam (Ativan Inj) 0.5 mg PRN Q6HRS PRN IVP ANXIETY / AGITATION Last administered on 11/17/20at 23:04; Start 11/17/20 at 16:15 Ondansetron HCl (Zofran) 4 mg PRN Q6HRS PRN IVP NAUSEA/VOMITING; Start 11/17/20 at 16:15 Prochlorperazine Edisylate (Compazine) 5 mg PRN Q6HRS PRN IVP NAUSEA/VOMITING; Start 11/17/20 at 16:15 Info (Icu Electrolyte Protocol) 1 ea DAILY MC ; Start 11/18/20 at 09:00 Sodium Chloride (Normal Saline Flush) 3 ml QSHIFT PRN IV AFTER MEDS AND BLOOD DRAWS; Start 11/17/20 at 16:15 Sodium Chloride 1,000 ml @ 1,000 mls/hr Q1H IV Last administered on 11/17/20at 17:50; Start 11/17/20 at 16:15; Stop 11/17/20 at 17:14; Status DC Fentanyl Citrate (Fentanyl 2ml Vial) 25 mcg PRN Q1HR PRN IV SEVERE PAIN 7-10; Start 11/17/20 at 16:15 Lactulose (Lactulose) 20 gm PRN Q12HR PRN PO CONSTIPATION; Start 11/17/20 at 16:15; Stop 11/17/20 at 17:40; Status DC Bisacodyl (Dulcolax Supp) 10 mg PRN DAILY PRN MD CONSTIPATION; Start 11/17/20 at 16:15 Pantoprazole Sodium (PROTONIX VIAL for IV PUSH) 40 mg DAILYAC IVP ; Start 11/18/20 at 07:30; Stop 11/17/20 at 17:40; Status DC Lactulose (LACTULOSE 300ML for RECTAL) 200 gm Q6HRS MD ; Start 11/17/20 at 18:00; Stop 11/17/20 at 17:40; Status DC Sodium Bicarbonate 75 meq/Sodium Chloride 1,075 ml @ 125 mls/hr Q8H36M IV Last administered on 11/18/20at 12:42; Start 11/17/20 at 17:00 Pantoprazole Sodium (PROTONIX VIAL for IV PUSH) 80 mg 1X ONCE IVP Last administered on 11/17/20at 17:50; Start 11/17/20 at 18:00; Stop 11/17/20 at 18:01; Status DC Pantoprazole Sodium 80 mg/ Sodium Chloride 100 ml @ 10 mls/hr Q10H IV Last administered on 11/18/20at 02:46; Start 11/17/20 at 18:00 Octreotide Acetate 500 mcg/ Sodium Chloride 101 ml @ 10.1 mls/hr CONT PRN IV SEE I/O RECORD Last administered on 11/18/20at 12:43; Start 11/17/20 at 17:30 Lactulose (LACTULOSE 300ML for RECTAL) 200 gm Q2HR MD Last administered on 11/18/20at 12:00; Start 11/17/20 at 18:00 Magnesium Sulfate 50 ml @ 25 mls/hr 1X ONCE IV Last administered on 11/17/20at 18:34; Start 11/17/20 at 18:30; Stop 11/17/20 at 20:29; Status DC Albumin Human 500 ml @ 125 mls/hr PRN DAILY PRN IV HYPOTENSION Last administered on 11/18/20at 01:47; Start 11/18/20 at 00:15 Multivitamins 10 ml/Thiamine HCl 100 mg/Folic Acid 1 mg/Sodium Chloride 1,011.2 ml @ 100 mls/ hr DAILY IV Last administered on 11/18/20at 09:23; Start 11/18/20 at 09:00; Stop 11/22/20 at 19:07 Thiamine HCl 100 mg/Dextrose 51 ml @ 100 mls/hr DAILY IV ; Start 11/23/20 at 09:00; Stop 11/27/20 at 09:31 Lorazepam (Ativan) 2 mg Q6H PO ; Start 11/18/20 at 08:00; Stop 11/19/20 at 14:01 Lactulose (Lactulose) 30 gm PRN DAILY PRN PO GI SYMPTOMS; Start 11/18/20 at 08:00; Status UNV Lactulose (Lactulose) 30 gm PRN DAILY PRN PO GI SYMPTOMS; Start 11/18/20 at 08:30; Status UNV Piperacillin Sod/ Tazobactam Sod (Zosyn Per Pharmacy) 1 each PRN DAILY PRN MC SEE COMMENTS; Start 11/18/20 at 12:00 Piperacillin Sod/ Tazobactam Sod 3.375 gm/Sodium Chloride 50 ml @ 100 mls/hr Q6HRS IV ; Start 11/18/20 at 12:00 Phytonadione (Vitamin K Ampule) 5 mg 1X ONCE SQ Last administered on 11/18/20at 12:50; Start 11/18/20 at 12:15; Stop 11/18/20 at 12:16; Status DC Allergies Allergies: Coded Allergies: No Known Drug Allergies (Unverified , 11/17/20) ROS Review of System Unable to obtain from the patient Physical Exam Physical Exam General Appearance: Drowsy and asleep, unable to awaken In no visible respiratory distress Eyes: Scleral icterus is noted conjunctiva Normal EN: No EN Drainage Mucous Memb. Appears dry Neck: no JVD no JVP Supple no palpable thyromegaly CVS: S1 S2 no murmur No Gallop No Rub no edema marginally tachycardic Resp: no Rales no Rhonchi no Acc. Muscle use GI: BS hypoactive NO Bruit somewhat tender Non Distended : no CVA tenderness; no Suprapubic Tenderness SKIN: No visible petechial rashes Breast Exam deferred Mu.Sk: Adequate passive ROM no muscle Atrophy Heme: Unable to palpate Obvious LAD no palpable splenomegaly NEURO: Appears to have adequate Strength and Tone unable to assess, no asterixis Psych: Unable to assess due to altered mental status and possible underlying encephalopathy Vital Signs Vital Signs Date Time Temp Pulse Resp B/P (MAP) Pulse Ox O2 Delivery O2 Flow Rate FiO2 11/18/20 11:00 89 20 114/63 (80) 95 Room Air 11/18/20 09:53 98.2 98.2 Assessment & Plan EARL/possible ATN cannot be ruled out. Current FLuid and E-lyte status does not necessitate emergent need for Dialysis. Will re-evaluate for Dialysis in am if no further response to volume repletion. Doubt acute oxalosis per se Intravascular volume depletion: Continue IV fluids Metabolic acidosis at presentation: Now with IV fluids with bicarb Oligoanuria: Possible ATN versus hepatorenal state versus pigment nephropathy. Other etiologies cannot be ruled out. Anticipate need for dialysis if oliguria continues despite adequate volume repletion Severe hypoalbuminemia: IV albumin as needed Anemia: Defer to GI to evaluate and treat Possible acute alcoholic hepatitis in the setting of fatty liver Discussed with ICU nurse at bedside Labs Labs Laboratory Tests Test 11/17/20 18:00 11/17/20 18:10 4/16/21 23:15 11/18/20 05:10 Hemoglobin 6.7 g/dL (12.0-15.5) 7.0 g/dL (12.0-15.5) 6.9 g/dL (12.0-15.5) Hematocrit 20.8 % (36.0-47.0) 21.9 % (36.0-47.0) 21.3 % (36.0-47.0) Mean Corpuscular Hemoglobin Concent 32 g/dL (31-37) 32 g/dL (31-37) 32 g/dL (31-37) Creatine Kinase 64 U/L (26-192) Hepatitis A IgM Antibody Nonreactive (Nonreactive) Hepatitis B Surface Antigen Nonreactive (Nonreactive) Hepatitis B Core IgM Antibody Nonreactive (Nonreactive) Hepatitis C IgG Antibody Nonreactive (Nonreactive) SARS-CoV-2 Antigen (Rapid) Negative (NEGATIVE) White Blood Count 5.4 x10^3/uL (4.0-11.0) 4.0 x10^3/uL (4.0-11.0) Red Blood Count 2.41 x10^6/uL (3.50-5.40) 2.35 x10^6/uL (3.50-5.40) Mean Corpuscular Volume 91 fL (79-100) 91 fL (79-100) Mean Corpuscular Hemoglobin 29 pg (25-35) 29 pg (25-35) Red Cell Distribution Width 20.2 % (11.5-14.5) 19.2 % (11.5-14.5) Platelet Count 218 x10^3/uL (140-400) 187 x10^3/uL (140-400) Neutrophils (%) (Auto) 73 % (31-73) Lymphocytes (%) (Auto) 15 % (24-48) Monocytes (%) (Auto) 10 % (0-9) Eosinophils (%) (Auto) 1 % (0-3) Basophils (%) (Auto) 0 % (0-3) Neutrophils # (Auto) 3.0 x10^3/uL (1.8-7.7) Lymphocytes # (Auto) 0.6 x10^3/uL (1.0-4.8) Monocytes # (Auto) 0.4 x10^3/uL (0.0-1.1) Eosinophils # (Auto) 0.0 x10^3/uL (0.0-0.7) Basophils # (Auto) 0.0 x10^3/uL (0.0-0.2) Prothrombin Time 28.1 SEC (11.7-14.0) Prothromb Time International Ratio 2.6 (0.8-1.1) Sodium Level 137 mmol/L (136-145) Potassium Level 4.0 mmol/L (3.5-5.1) Chloride Level 101 mmol/L (98-107) Carbon Dioxide Level 22 mmol/L (21-32) Anion Gap 14 (6-14) Blood Urea Nitrogen 10 mg/dL (7-20) Creatinine 1.8 mg/dL (0.6-1.0) Estimated GFR (Cockcroft-Gault) 31.0 BUN/Creatinine Ratio 6 (6-20) Glucose Level 73 mg/dL (70-99) Calcium Level 7.0 mg/dL (8.5-10.1) Total Bilirubin 9.0 mg/dL (0.2-1.0) Aspartate Amino Transf (AST/SGOT) 1172 U/L (15-37) Alanine Aminotransferase (ALT/SGPT) 234 U/L (14-59) Alkaline Phosphatase 142 U/L (46-116) Total Protein 4.7 g/dL (6.4-8.2) Albumin 1.9 g/dL (3.4-5.0) Albumin/Globulin Ratio 0.7 (1.0-1.7) Laboratory Tests Test 11/17/20 18:00 11/17/20 18:10 11/17/20 23:15 11/18/20 05:10 Hemoglobin 6.7 g/dL (12.0-15.5) 7.0 g/dL (12.0-15.5) 6.9 g/dL (12.0-15.5) Hematocrit 20.8 % (36.0-47.0) 21.9 % (36.0-47.0) 21.3 % (36.0-47.0) Mean Corpuscular Hemoglobin Concent 32 g/dL (31-37) 32 g/dL (31-37) 32 g/dL (31-37) Creatine Kinase 64 U/L (26-192) Hepatitis A IgM Antibody Nonreactive (Nonreactive) Hepatitis B Surface Antigen Nonreactive (Nonreactive) Hepatitis B Core IgM Antibody Nonreactive (Nonreactive) Hepatitis C IgG Antibody Nonreactive (Nonreactive) SARS-CoV-2 Antigen (Rapid) Negative (NEGATIVE) White Blood Count 5.4 x10^3/uL (4.0-11.0) 4.0 x10^3/uL (4.0-11.0) Red Blood Count 2.41 x10^6/uL (3.50-5.40) 2.35 x10^6/uL (3.50-5.40) Mean Corpuscular Volume 91 fL (79-100) 91 fL (79-100) Mean Corpuscular Hemoglobin 29 pg (25-35) 29 pg (25-35) Red Cell Distribution Width 20.2 % (11.5-14.5) 19.2 % (11.5-14.5) Platelet Count 218 x10^3/uL (140-400) 187 x10^3/uL (140-400) Neutrophils (%) (Auto) 73 % (31-73) Lymphocytes (%) (Auto) 15 % (24-48) Monocytes (%) (Auto) 10 % (0-9) Eosinophils (%) (Auto) 1 % (0-3) Basophils (%) (Auto) 0 % (0-3) Neutrophils # (Auto) 3.0 x10^3/uL (1.8-7.7) Lymphocytes # (Auto) 0.6 x10^3/uL (1.0-4.8) Monocytes # (Auto) 0.4 x10^3/uL (0.0-1.1) Eosinophils # (Auto) 0.0 x10^3/uL (0.0-0.7) Basophils # (Auto) 0.0 x10^3/uL (0.0-0.2) Prothrombin Time 28.1 SEC (11.7-14.0) Prothromb Time International Ratio 2.6 (0.8-1.1) Sodium Level 137 mmol/L (136-145) Potassium Level 4.0 mmol/L (3.5-5.1) Chloride Level 101 mmol/L (98-107) Carbon Dioxide Level 22 mmol/L (21-32) Anion Gap 14 (6-14) Blood Urea Nitrogen 10 mg/dL (7-20) Creatinine 1.8 mg/dL (0.6-1.0) Estimated GFR (Cockcroft-Gault) 31.0 BUN/Creatinine Ratio 6 (6-20) Glucose Level 73 mg/dL (70-99) Calcium Level 7.0 mg/dL (8.5-10.1) Total Bilirubin 9.0 mg/dL (0.2-1.0) Aspartate Amino Transf (AST/SGOT) 1172 U/L (15-37) Alanine Aminotransferase (ALT/SGPT) 234 U/L (14-59) Alkaline Phosphatase 142 U/L (46-116) Total Protein 4.7 g/dL (6.4-8.2) Albumin 1.9 g/dL (3.4-5.0) Albumin/Globulin Ratio 0.7 (1.0-1.7) Review All relevant outside records, renal labs, imaging studies, telemetry/EKG's were reviewed. Images Images Abdominal ultrasound from 11/17/2020: FINDINGS: The aorta, spleen, IVC, pancreas are not well-visualized due to bowel gas. The liver length measures 17.4 cm . Increased echogenicity identified in the liver likely hepatic steatosis. Mild increased identified within the gallbladder likely sludge. The gallbladder is mildly distended. The gallbladder wall thickness measures 1.5 mm. The right kidney measures 10.7 x 6.9 x 3.9 cm. The left kidney measures 9.1 x 5.0 x 4.4 cm. IMPRESSION: 1. Hepatic steatosis. 2. Hydropic gallbladder with gallbladder sludge. ROVERTO MALCOLM MD Nov 18, 2020 12:55
[2020-11-18 13:51] LABS: HEMATOCRIT 24.8 % (36.0-47.0); HEMOGLOBIN 8.1 g/dL (12.0-15.5)
--- NOTE | 2020-11-18 14:03 | PDOC2 ---
GI CONSULT Reason For Consult: anemia and elevated lfts HPI: HPI: 40yo F w/ PMHx gastric ulcer and heavy NSAID use with morbid obesity s/p gastric bypass ini 2008, alcohol use disorder, Anxiety, Depression, Hypertension, IBS, Kidney Stones, Pancreatitis, chronic back pain, and smoker who presented to [facility] ED in [place], [place] via EMS for altered mental status. Her called because patient has been on couch has been increasingly confused over the past 5 days. Per EMS report she had a fall a few days ago when she was intoxicated. Labs with WBC 7.5, Hb 6.4, platelets 237, Na 130, K 4.3, BUN 10, Cr 2.3, glucose 72, Trop 0, BNP 939, Albumin 1.8, INR 4.9, ammonia 44, bilirubin 11, AST 2744, ALT 400, Alk phos 172, Lipase 42. She recevied one unit of blood overnight and Hgb went to 7 now 6.9. Acute heptatitis panel and COVID tests have been negative. She was placed on PPI gtts and octreotide yesterday. She received an additional unit of PRBCs today and followup Hgb is pending. Abd sono with1. Hepatic steatosis.2. Hydropic gallbladder with gallbladder sludge. CT chest abdomen pelvis revealed severe hepatic steatosis and cholelithiasis with hydropic gallbladder and gastric bypass, no other acute findings. CT head with no acute hemorrhage. PMH: PMH: Past Medical History Cardiovascular: HTN GI: GERD, GI bleed, Gastritis, Peptic Ulcer disease , EGD and colon years ago in [place] Psych: Anxiety, Addictions, Depression Past Surgical History Past Surgical History Gastric bypass, peptic ulcer Past Surgical History: Family History Family History: Family History Unknown Social History Smoke: 1 pack per day ALCOHOL: heavy Drugs: None Allergies Allergies: Coded Allergies: No Known Drug Allergies (Unverified , 11/17/20) ROS Review of System Unable to obtain due to confusiono I Social History: Smoke: 1 pack per day ALCOHOL: heavy Drugs: None ROS: GEN: Denies fevers, chills, sweats HEENT: Denies blurred vision, sore throat CV: Denies chest pain RESP: Denies shortness of air, cough GI: Per HPI : Denies hematuria, dysuria ENDO: Denies weight changes NEURO: Denies confusion, dizziness MSK: Denies weakness, joint pain/swelling SKIN: Denies jaundice, pruritus VItals: Vitals: Vital Signs Date Time Temp Pulse Resp B/P (MAP) Pulse Ox O2 Delivery O2 Flow Rate FiO2 11/18/20 12:00 Room Air 11/18/20 12:00 98.4 104 23 151/75 (100) 98 98.4 Labs: Labs: Laboratory Tests Test 11/17/20 18:00 11/17/20 18:10 11/17/20 23:15 11/18/20 05:10 Hemoglobin 6.7 g/dL (12.0-15.5) 7.0 g/dL (12.0-15.5) 6.9 g/dL (12.0-15.5) Hematocrit 20.8 % (36.0-47.0) 21.9 % (36.0-47.0) 21.3 % (36.0-47.0) Mean Corpuscular Hemoglobin Concent 32 g/dL (31-37) 32 g/dL (31-37) 32 g/dL (31-37) Creatine Kinase 64 U/L (26-192) Hepatitis A IgM Antibody Nonreactive (Nonreactive) Hepatitis B Surface Antigen Nonreactive (Nonreactive) Hepatitis B Core IgM Antibody Nonreactive (Nonreactive) Hepatitis C IgG Antibody Nonreactive (Nonreactive) SARS-CoV-2 RNA (KARLA) Negative (Negative) SARS-CoV-2 Antigen (Rapid) Negative (NEGATIVE) White Blood Count 5.4 x10^3/uL (4.0-11.0) 4.0 x10^3/uL (4.0-11.0) Red Blood Count 2.41 x10^6/uL (3.50-5.40) 2.35 x10^6/uL (3.50-5.40) Mean Corpuscular Volume 91 fL (79-100) 91 fL (79-100) Mean Corpuscular Hemoglobin 29 pg (25-35) 29 pg (25-35) Red Cell Distribution Width 20.2 % (11.5-14.5) 19.2 % (11.5-14.5) Platelet Count 218 x10^3/uL (140-400) 187 x10^3/uL (140-400) Neutrophils (%) (Auto) 73 % (31-73) Lymphocytes (%) (Auto) 15 % (24-48) Monocytes (%) (Auto) 10 % (0-9) Eosinophils (%) (Auto) 1 % (0-3) Basophils (%) (Auto) 0 % (0-3) Neutrophils # (Auto) 3.0 x10^3/uL (1.8-7.7) Lymphocytes # (Auto) 0.6 x10^3/uL (1.0-4.8) Monocytes # (Auto) 0.4 x10^3/uL (0.0-1.1) Eosinophils # (Auto) 0.0 x10^3/uL (0.0-0.7) Basophils # (Auto) 0.0 x10^3/uL (0.0-0.2) Prothrombin Time 28.1 SEC (11.7-14.0) Prothromb Time International Ratio 2.6 (0.8-1.1) Sodium Level 137 mmol/L (136-145) Potassium Level 4.0 mmol/L (3.5-5.1) Chloride Level 101 mmol/L (98-107) Carbon Dioxide Level 22 mmol/L (21-32) Anion Gap 14 (6-14) Blood Urea Nitrogen 10 mg/dL (7-20) Creatinine 1.8 mg/dL (0.6-1.0) Estimated GFR (Cockcroft-Gault) 31.0 BUN/Creatinine Ratio 6 (6-20) Glucose Level 73 mg/dL (70-99) Calcium Level 7.0 mg/dL (8.5-10.1) Total Bilirubin 9.0 mg/dL (0.2-1.0) Aspartate Amino Transf (AST/SGOT) 1172 U/L (15-37) Alanine Aminotransferase (ALT/SGPT) 234 U/L (14-59) Alkaline Phosphatase 142 U/L (46-116) Total Protein 4.7 g/dL (6.4-8.2) Albumin 1.9 g/dL (3.4-5.0) Albumin/Globulin Ratio 0.7 (1.0-1.7) Imaging: Imaging: Abd sono with1. Hepatic steatosis.2. Hydropic gallbladder with gallbladder sludge. CT chest abdomen pelvis revealed severe hepatic steatosis and cholelithiasis with hydropic gallbladder and gastric bypass, no other acute findings. CT head with no acute hemorrhage. mages Images CT CHEST_ABDOMEN_ AND PELVIS WITHOUT CONTRAST 11/17/2020 10:51 AM INDICATION: Altered mental status, liver failure COMPARISON: CT abdomen/pelvis 03/05/2020 TECHNIQUE: Multiple axial CT images of the chest, abdomen and pelvis were obtained without intravenous contrast. Coronal and sagittal reformats are provided. FINDINGS: Evaluation degraded by motion artifact. Thyroid gland is normal in appearance. No pathologically enlarged thoracic lymph nodes. Heart size within normal limits. Thoracic aorta is normal in course and caliber. No pleural effusions, pulmonary vascular congestion or pneumothorax. Lungs are clear. No suspicious solid noncalcified pulmonary nodules. Severe hepatic steatosis. There is a hydropic gallbladder measuring 6.3 cm in transverse dimension. Cholelithiasis. Spleen and adrenal glands are normal in appearance. Mild atrophy of the pancreas. Abdominal aorta is normal in course and caliber. No pathologically enlarged lymph nodes are identified in abdomen and pelvis within the limitations of motion artifact. No free fluid or free intraperitoneal air. Gastric bypass post surgical changes. Bowel is partly limited by motion artifact. No bowel obstruction or inflammation. Limited evaluation of the appendix secondary to motion. Appendix is not definitively visualized. No pericecal inflammatory changes are identified. Uterus and adnexa are normal by CT. Wood catheter decompresses the urinary bladder. No calculi identified within the kidneys, ureters or urinary bladder. No hydronephrosis. No suspicious osseous abnormality is identified. Chronic appearing superior endplate compression deformities identified at L1 with percent height loss and superior endplate retropulsion. Schmorl's nodes are identified at T11-T12 with mild height loss. Vertebral segmentation anomaly identified at T9-T10 and T5-T6 as well as at the craniocervical junction. Findings are limited evaluation secondary motion. IMPRESSION: Evaluation is degraded by motion artifact. Severe hepatic steatosis. Correlate with hepatic enzymes to assess for steatohepatitis. Gastric bypass post surgical changes are identified without bowel obstruction or inflammation. Cholelithiasis with hydropic gallbladder. Correlate with right upper quadrant ultrasound assess for cholecystitis. 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 If there is persistent clinical concern, dedicated CT thoracic s pine with sedation could be of benefit. CT HEAD AND MAXILLOFACIAL WO, CT CERVICAL SPINE WO History: Reason: fall, ams, face injury, jaundice / Spl. Instructions: Comparison: June 08, 2018 Technique: Noncontrast CT imaging was performed of the head, maxillofacial and cervical spine. Coronal and sagittal reconstructions were performed. Exposure: One or more of the following individualized dose reduction techniques were utilized for this examination: 1. Automated exposure control 2. Adjustment of the mA and/or kV according to patient size 3. Use of iterative reconstruction technique. Findings: Head CT: No intracranial hemorrhage. No mass effect. No hydrocephalus. Extra- axial spaces are unremarkable. Frontal scalp soft tissue wound. Maxillofacial CT: Motion degraded evaluation. The entire mandible not included in the image. No definite acute fracture although degraded evaluation especially concerned imaged portions of the mandible. Orbits are unremarkable. Paranasal sinuses and mastoid air cells are clear. No acute calvarial fracture. Cervical spine CT: Motion degraded evaluation. Right upper chest subcutaneous gas. Normal vertebral body alignment. Significantly degraded evaluation of the upper cervical spine and upper thoracic spine due to patient motion. No definite acute fracture. Mild degenerative disc changes. No significant canal narrowing. No definite neuroforaminal narrowing although evaluation is degraded. Soft tissues are unremarkable. Impression: Head CT: 1. No acute intracranial abnormality. Maxillofacial CT: 1. Degraded evaluation due to patient motion. The mandible is not entirely evaluated. No definite fracture. If persistent clinical concern, recommend repeat imaging. Cervical spine CT: CT HEAD AND MAXILLOFACIAL WO, CT CERVICAL SPINE WO History: Reason: fall, ams, face injury, jaundice / Spl. Instructions: Comparison: June 08, 2018 Technique: Noncontrast CT imaging was performed of the head, maxillofacial and cervical spine. Coronal and sagittal reconstructions were performed. Exposure: One or more of the following individualized dose reduction techniques were utilized for this examination: 1. Automated exposure control 2. Adjustment of the mA and/or kV according to patient size 3. Use of iterative reconstruction technique. Findings: Head CT: No intracranial hemorrhage. No mass effect. No hydrocephalus. Extra- axial spaces are unremarkable. Frontal scalp soft tissue wound. Maxillofacial CT: Motion degraded evaluation. The entire mandible not included in the image. No definite acute fracture although degraded evaluation especially concerned imaged portions of the mandible. Orbits are unremarkable. Paranasal sinuses and mastoid air cells are clear. No acute calvarial fracture. Cervical spine CT: Motion degraded evaluation. Right upper chest subcutaneous gas. Normal vertebral body alignment. Significantly degraded evaluation of the upper cervical spine and upper thoracic spine due to patient motion. No definite acute fracture. Mild degenerative disc changes. No significant canal narrowing. No definite neuroforaminal narrowing although evaluation is degraded. Soft tissues are unremarkable. Impression: Head CT: 1. No acute intracranial abnormality. Maxillofacial CT: 1. Degraded evaluation due to patient motion. The mandible is not entirely evaluated. No definite fracture. If persistent clinical concern, recommend repeat imaging. Cervical spine CT: 1. Significantly degraded evaluation due to patient motion. No definite fracture. Recommend repeat imaging when patient's condition allows. [facility] [address] [place] [address] IMAGING REPORT Signed PATIENT: KELLIE GARCIA KACCOUNT: [id number] : 1980 LOCATION: [facility] ICU AGE: 40 SEX: F EXAM STATUS: ADM IN ORD. PHYSICIAN: YOLANDA PANG MD REASON: cirrhosis PROCEDURE: ABDOMEN COMPLETE Examination: Ultrasound abdomen complete HISTORY: History of cirrhosis COMPARISON: None available FINDINGS: The aorta, spleen, IVC, pancreas are not well-visualized due to bowel gas. The liver length measures 17.4 cm . Increased echogenicity identified in the liver likely hepatic steatosis. Mild increased identified within the gallbladder likely sludge. The gallbladder is mildly distended. The gallbladder wall thickness measures 1.5 mm. The right kidney measures 10.7 x 6.9 x 3.9 cm. The left kidney measures 9.1 x 5.0 x 4.4 cm. IMPRESSION: 1. Hepatic steatosis. 2. Hydropic gallbladder with gallbladder sludge. Electronically signed by: Medhat Fernandes MD (11/17/2020 9:53 PM) [id number] PE: Physical Exam General: Alert, Cooperative, moderate distress HEENT: EOMI, Other (Adentulous, icteric sclera) Lungs: Clear to auscultation, Normal air movement Heart: S1S2, RRR, no thrills, no rubs, no gallops, no murmurs Abdomen: Normal bowel sounds, Soft, Other (RUQ pain, slight fluid wave) Rectal Exam: not examined Extremities: No clubbing, No cyanosis, No edema, Normal pulses, No tenderness/swelling Skin: No rashes, No breakdown, No significant lesion Neuro: Sensation intact, Cranial nerves 3-12 NL, Reflexes 2+, Other (Moving all 4 limbs) Psych/Mental Status: AAO x 3 A/P: A/P: ssessment/Plan Assessment/Plan A/P: PSE: Lactulose enemas. She is more awake today. Once she is able to tke PO, plan for PO lactulose and xifaxin Acute anemia - likely GI loss. H/o PUD suspect NSAUD use as she decribes that this occurred before her RYGB. She admits to recent NSAID use.. Transfuse for Hb <7. Repeat Hb. IV PPI, IV octreotide. Favor EGD in next few days Liver failure, acute - MELD score on admit is 40 on admits Acute hepatitis - appears alcoholic. Will need to abstain from alcohol and needs referral to transplant bilingual spanish inbound sales in the future if safely discharged eventually Hydropic gallbladder - incidentally noted on CT. Ultrasound with fatty liver and sludge Morbid obesity s/p gastric bypass in 2008 - no significant f/u with bariatrics per . Alcohol use disorder -banana YOLANDA Bella MD Nov 18, 2020 14:03
--- NOTE | 2020-11-18 16:39 | EKG ---
[facility] [address] [place] [address] Test Date: 2020-11-18 Test Time: 16:31:38 Pat Name: KELLIE GARCIA Department: Room: 111 1 Gender: F Mental Health Orderly: : 1980 Requested By: FUENTES MAIER Order Number: [id number] Reading MD: Measurements Intervals [place] Rate: 98 P: 51 [place]: 110 QRS: 19 QRSD: 62 T: 39 QT: 356 QTc: 456 Interpretive Statements SINUS RHYTHM LOW LIMB LEAD VOLTAGE NO SPECIFIC ECG ABNORMALITIES RI6.02 No previous ECG available for comparison
[2020-11-18] MEDS: fentaNYL PF VIAL 100 MCG/2 ML VIAL IV PRN (23:18)
[2020-11-19] VITALS (21 sets, daily range): BP systolic 78–147; BP diastolic 43–82
[2020-11-19] MEDS: PIPERACILLIN/TAZOBACTAM 3.375 GM in IV NORMAL SALINE 50ML 50 ML IV SCH ×4 (01:15→18:01)
[2020-11-19] MEDS: OCTREOTIDE 500 MCG in IV NORMAL SALINE 100ML 100 ML IV PRN ×2 (01:16→13:00)
[2020-11-19] MEDS: LACTULOSE for RECTAL 200 GM/300 ML SOLUTION. PR SCH ×12 (02:03→22:00)
[2020-11-19] MEDS: PANTOPRAZOLE SODIUM IV DRIP 80 MG in IV NORMAL SALINE 100ML 100 ML IV SCH ×3 (04:12→15:42)
[2020-11-19] MEDS: SODIUM BICARBONATE VIAL 75 MEQ in IV 1/2 NORMAL SALINE 1,000 ML IV SCH (05:44)
[2020-11-19 06:36] LABS: BASO % 1 % (0-3); EOS % 1 % (0-3); HEMATOCRIT 23.6 % (36.0-47.0); HEMOGLOBIN 7.7 g/dL (12.0-15.5); LYMPH # 0.6 x10^3/uL (1.0-4.8); LYMPH % 15 % (24-48); MEAN CORPUSCULAR HEMOGLOBIN 29 pg (25-35); MEAN CORPUSCULAR HGB CONC 33 g/dL (31-37); MEAN CORPUSCULAR VOLUME 89 fL (79-100); MONO # 0.7 x10^3/uL (0.0-1.1); MONO % 16 % (0-9); NEUT # 2.9 x10^3/uL (1.8-7.7); NEUT % 68 % (31-73); PLATELET COUNT 204 x10^3/uL (140-400); RED BLOOD COUNT 2.64 x10^6/uL (3.50-5.40); RED CELL DISTRIBUTION WIDTH 19.1 % (11.5-14.5); WHITE BLOOD COUNT 4.3 x10^3/uL (4.0-11.0)
[2020-11-19] MEDS: fentaNYL PF VIAL 100 MCG/2 ML VIAL IV PRN ×2 (06:38→09:43)
[2020-11-19 06:49] LABS: PROTHROMBIN TIME PATIENT 25.8 SEC (11.7-14.0)
[2020-11-19 06:55] LABS: ALBUMIN 1.6 g/dL (3.4-5.0); ALBUMIN/GLOBULIN RATIO 0.6 (1.0-1.7); CALCIUM 7.5 mg/dL (8.5-10.1); CREATININE 1.2 mg/dL (0.6-1.0); GFR 49.5; POTASSIUM 3.4 mmol/L (3.5-5.1); TOTAL PROTEIN 4.5 g/dL (6.4-8.2)
--- NOTE | 2020-11-19 07:08 | RAD ---
AP portable chest radiograph 11/18/2020 Clinical History: Hypotension. An AP erect portable digital radiograph of the chest was obtained. The patient is rotated to the left. The cardiac silhouette is normal in size. The mediastinal silhoue tte is within normal limits. No acute pulmonary infiltrate is seen. No pleural effusion or pneumothor ax is noted. Mild to moderate S-shaped curvature of the thoracolumbar spine is seen. Degenerative stew nges are seen involving both shoulders, left greater than right. IMPRESSION: No acute abnormality is seen. Electronically signed by: Sebastián Delcid MD (11/19/2020 7:05 AM) [id number]
--- NOTE | 2020-11-19 08:21 | PDOC ---
DATE OF SERVICE: DOS: DATE: 11/19/20 TIME: 08:17 SUBJECTIVE ROS F/up EARL Patient remains somnolent and minimally arousable at this time. Urine output has remained minimal OBJECTIVE Vital Signs Vital Signs Date Time Temp Pulse Resp B/P (MAP) Pulse Ox O2 Delivery O2 Flow Rate FiO2 11/19/20 08:00 86 23 116/55 (75) 95 Room Air 11/19/20 04:00 100.1 100.1 I & 0 Intake and Output 11/19/20 07:00 Intake Total 5075 ml Output Total 575 ml Balance 4500 ml Intake IV Total 4715 ml Blood Product IV Normal Saline Flush 360 ml Output Urine Total 575 ml PHYSICAL EXAM Physical Exam GEN: Fast asleep and unable to awaken, appears jaundiced, In no distress EYES: Possible scleral icterus, Conjunctiva Normal EN: No EN Drainage, Mucous Membranes dryish NECK: no JVD, no JVP, Supple, no Thyromegaly CVS: S1S2, no Murmur, No Gallop, No Rub,tr Edema RESP: no Rales, no Rhonchi,no Acc. Muscle Use GI: BS hypoactive, NO Bruit, Non Tender, Non Distended : no CVA tenderness, no Suprapubic Tenderness DIAGNOSIS/ASSESSMENT Diagnosis EARL/possible ATN cannot be ruled out. Creatinine has improved with positive fluid balance but urine output is minimal. Intravascular volume depletion: Continue gentle IV fluids. Do not feel it is helping much at this time. Metabolic acidosis at presentation: Now much improved with IV fluids with bicarb Oligoanuria: Possible ATN versus hepatorenal state versus pigment nephropathy. Other etiologies cannot be ruled out. Anticipate need for dialysis if oliguria continues despite adequate volume repletion Severe hypoalbuminemia: IV albumin as needed and ordered Anemia: Defer to GI to evaluate and treat Possible acute alcoholic hepatitis in the setting of fatty liver Low potassium: One-time replacement as ordered Discussed with ICU nurse at bedside COMMENT/RELEVANT DATA Meds Current Medications Medications (Trade) Dose Ordered Sig/Saud Start Time Stop Time Status Last Admin Dose Admin Albumin Human 500 ml @ 125 mls/hr PRN DAILY PRN 11/18/20 00:15 11/18/20 01:47 125 MLS/HR Bisacodyl (Dulcolax Supp) 10 mg PRN DAILY PRN 11/17/20 16:15 Fentanyl Citrate (Fentanyl 2ml Vial) 25 mcg PRN Q1HR PRN 11/17/20 16:15 11/19/20 06:38 25 MCG Info (Icu Electrolyte Protocol) 1 ea DAILY 11/18/20 09:00 Lactulose (LACTULOSE 300ML for RECTAL) 200 gm Q2HR 11/17/20 18:00 11/19/20 02:03 200 GM Lactulose (Lactulose) 30 gm PRN DAILY PRN 11/18/20 08:30 UNV Lorazepam (Ativan Inj) 2 mg PRN Q1HR PRN 11/18/20 18:15 11/19/20 06:37 2 MG Lorazepam (Ativan) 2 mg Q6H 11/18/20 08:00 11/19/20 01:14 DC Magnesium Sulfate 50 ml @ 25 mls/hr 1X ONCE 11/17/20 18:30 11/17/20 20:29 DC 11/17/20 18:34 25 MLS/HR Multivitamins 10 ml/Thiamine HCl 100 mg/Folic Acid 1 mg/Sodium Chloride 1,011.2 ml @ 100 mls/ hr DAILY 11/18/20 09:00 11/22/20 19:07 11/18/20 09:23 100 MLS/HR Octreotide Acetate 500 mcg/ Sodium Chloride 101 ml @ 10.1 mls/hr CONT PRN 11/17/20 17:30 11/19/20 01:16 10.1 MLS/HR Ondansetron HCl (Zofran) 4 mg PRN Q6HRS PRN 11/17/20 16:15 Pantoprazole Sodium (PROTONIX VIAL for IV PUSH) 80 mg 1X ONCE 11/17/20 18:00 11/17/20 18:01 DC 11/17/20 17:50 80 MG Pantoprazole Sodium 80 mg/ Sodium Chloride 100 ml @ 10 mls/hr Q10H 11/17/20 18:00 11/19/20 04:12 10 MLS/HR Phytonadione (Vitamin K Ampule) 5 mg 1X ONCE 11/18/20 12:15 11/18/20 12:16 DC 11/18/20 12:50 5 MG Piperacillin Sod/ Tazobactam Sod (Zosyn Per Pharmacy) 1 each PRN DAILY PRN 11/18/20 12:00 Piperacillin Sod/ Tazobactam Sod 3.375 gm/Sodium Chloride 50 ml @ 100 mls/hr Q6HRS 11/18/20 12:00 11/19/20 05:44 100 MLS/HR Potassium Chloride/Water 100 ml @ 100 mls/hr Q1H 11/19/20 08:30 11/19/20 10:29 Prochlorperazine Edisylate (Compazine) 5 mg PRN Q6HRS PRN 11/17/20 16:15 Sodium Bicarbonate 75 meq/Sodium Chloride 1,075 ml @ 125 mls/hr Q8H36M 11/17/20 17:00 11/19/20 05:44 125 MLS/HR Sodium Chloride 1,000 ml @ 1,000 mls/hr Q1H 11/17/20 16:15 11/17/20 17:14 DC 11/17/20 17:50 1,000 MLS/HR Sodium Chloride (Normal Saline Flush) 3 ml QSHIFT PRN 11/17/20 16:15 Thiamine HCl 100 mg/Dextrose 51 ml @ 100 mls/hr DAILY 11/23/20 09:00 11/27/20 09:31 Lab Laboratory Tests Test 11/18/20 13:40 11/18/20 17:57 11/19/20 06:05 Hemoglobin 8.1 g/dL (12.0-15.5) 7.7 g/dL (12.0-15.5) Hematocrit 24.8 % (36.0-47.0) 23.6 % (36.0-47.0) Mean Corpuscular Hemoglobin Concent 33 g/dL (31-37) 33 g/dL (31-37) Lactic Acid Level 2.1 mmol/L (0.4-2.0) 2.2 mmol/L (0.4-2.0) Ammonia 40 mcmol/L (11-34) 35 mcmol/L (11-34) Troponin I Quantitative 0.050 ng/mL (0.000-0.055) Procalcitonin 4.43 ng/mL (0.00-0.10) White Blood Count 4.3 x10^3/uL (4.0-11.0) Red Blood Count 2.64 x10^6/uL (3.50-5.40) Mean Corpuscular Volume 89 fL (79-100) Mean Corpuscular Hemoglobin 29 pg (25-35) Red Cell Distribution Width 19.1 % (11.5-14.5) Platelet Count 204 x10^3/uL (140-400) Neutrophils (%) (Auto) 68 % (31-73) Lymphocytes (%) (Auto) 15 % (24-48) Monocytes (%) (Auto) 16 % (0-9) Eosinophils (%) (Auto) 1 % (0-3) Basophils (%) (Auto) 1 % (0-3) Neutrophils # (Auto) 2.9 x10^3/uL (1.8-7.7) Lymphocytes # (Auto) 0.6 x10^3/uL (1.0-4.8) Monocytes # (Auto) 0.7 x10^3/uL (0.0-1.1) Eosinophils # (Auto) 0.0 x10^3/uL (0.0-0.7) Basophils # (Auto) 0.0 x10^3/uL (0.0-0.2) Prothrombin Time 25.8 SEC (11.7-14.0) Prothromb Time International Ratio 2.4 (0.8-1.1) Results All relevant outside records, renal labs, imaging studies, telemetry/EKG's were reviewed. Justicifation of Admission Dx: Justifications for Admission: Justification of Admission Dx: Yes Sepsis: Altered Mental Status Altered Mental Status: Altered Mental Status ROVERTO MALCOLM MD Nov 19, 2020 08:21
--- NOTE | 2020-11-19 08:25 | PDOC2 ---
CONSULT Date of Consult Date of Consult DATE: 11/19/20 TIME: 08:25 Reason for Consult Reason for Consult: Hypotension Referring Physician Referring Physician: Dr. Jones Identification/Chief Complaint Chief Complaint Mental status changes Source Source: Chart review History of Present Illness Reason for Visit: 40-year-old female with history of chronic alcohol abuse and pancreatitis was initially brought by to [facility] ED with 1 week history of worsening confusion. She apparently was released from incarceration [facility] last October [place]. She was diagnosed with acute metabolic encephalopathy, liver and renal failure and transferred to [facility] for further management. No significant history can be obtained from patient due to mental status changes but chart reviewed did not show any history of chest pain, shortness of breath or palpitations. She was hypotensive yesterday prompting cardiology consultation. She is however normotensive today without any need for pressors. Past Medical History Cardiovascular: HTN GI: GERD, GI bleed, Gastritis, Peptic Ulcer disease Psych: Anxiety, Addictions, Depression Past Surgical History Past Surgical History: Family History Family History: Family History Unknown Social History 1 pack per day ALCOHOL: heavy Drugs: None Current Medications Current Medications Current Medications Lorazepam (Ativan Inj) 0.5 mg PRN Q6HRS PRN IVP ANXIETY / AGITATION Last administered on 11/18/20at 18:10; Start 11/17/20 at 16:15; Stop 11/19/20 at 01:1 4; Status DC Ondansetron HCl (Zofran) 4 mg PRN Q6HRS PRN IVP NAUSEA/VOMITING; Start 11/17/20 at 16:15 Prochlorperazine Edisylate (Compazine) 5 mg PRN Q6HRS PRN IVP NAUSEA/VOMITING; Start 11/17/20 at 16:15 Info (Icu Electrolyte Protocol) 1 ea DAILY MC ; Start 11/18/20 at 09:00 Sodium Chloride (Normal Saline Flush) 3 ml QSHIFT PRN IV AFTER MEDS AND BLOOD DRAWS; Start 11/17/20 at 16:15 Sodium Chloride 1,000 ml @ 1,000 mls/hr Q1H IV Last administered on 11/17/20at 17:50; Start 11/17/20 at 16:15; Stop 11/17/20 at 17:14; Status DC Fentanyl Citrate (Fentanyl 2ml Vial) 25 mcg PRN Q1HR PRN IV SEVERE PAIN 7-10 Last administered on 11/19/20at 06:38; Start 11/17/20 at 16:15 Lactulose (Lactulose) 20 gm PRN Q12HR PRN PO CONSTIPATION; Start 11/17/20 at 16:15; Stop 11/17/20 at 17:40; Status DC Bisacodyl (Dulcolax Supp) 10 mg PRN DAILY PRN MO CONSTIPATION; Start 11/17/20 at 16:15 Pantoprazole Sodium (PROTONIX VIAL for IV PUSH) 40 mg DAILYAC IVP ; Start 11/18/20 at 07:30; Stop 11/17/20 at 17:40; Status DC Lactulose (LACTULOSE 300ML for RECTAL) 200 gm Q6HRS MO ; Start 11/17/20 at 18:00; Stop 11/17/20 at 17:40; Status DC Sodium Bicarbonate 75 meq/Sodium Chloride 1,075 ml @ 125 mls/hr Q8H36M IV Last administered on 11/19/20at 05:44; Start 11/17/20 at 17:00 Pantoprazole Sodium (PROTONIX VIAL for IV PUSH) 80 mg 1X ONCE IVP Last administered on 11/17/20at 17:50; Start 11/17/20 at 18:00; Stop 11/17/20 at 18:01; Status DC Pantoprazole Sodium 80 mg/ Sodium Chloride 100 ml @ 10 mls/hr Q10H IV Last administered on 11/19/20at 04:12; Start 11/17/20 at 18:00 Octreotide Acetate 500 mcg/ Sodium Chloride 101 ml @ 10.1 mls/hr CONT PRN IV SEE I/O RECORD Last administered on 11/19/20at 01:16; Start 11/17/20 at 17:30 Lactulose (LACTULOSE 300ML for RECTAL) 200 gm Q2HR MO Last administered on 11/19/20at 02:03; Start 11/17/20 at 18:00 Magnesium Sulfate 50 ml @ 25 mls/hr 1X ONCE IV Last administered on 11/17/20at 18:34; Start 11/17/20 at 18:30; Stop 11/17/20 at 20:29; Status DC Albumin Human 500 ml @ 125 mls/hr PRN DAILY PRN IV HYPOTENSION Last administered on 11/18/20at 01:47; Start 11/18/20 at 00:15 Multivitamins 10 ml/Thiamine HCl 100 mg/Folic Acid 1 mg/Sodium Chloride 1,011.2 ml @ 100 mls/ hr DAILY IV Last administered on 11/18/20at 09:23; Start 11/18/20 at 09:00; Stop 11/22/20 at 19:07 Thiamine HCl 100 mg/Dextrose 51 ml @ 100 mls/hr DAILY IV ; Start 11/23/20 at 09:00; Stop 11/27/20 at 09:31 Lorazepam (Ativan) 2 mg Q6H PO ; Start 11/18/20 at 08:00; Stop 11/19/20 at 01:14; Status DC Lactulose (Lactulose) 30 gm PRN DAILY PRN PO GI SYMPTOMS; Start 11/18/20 at 08:00; Status UNV Lactulose (Lactulose) 30 gm PRN DAILY PRN PO GI SYMPTOMS; Start 11/18/20 at 08:30; Status UNV Piperacillin Sod/ Tazobactam Sod (Zosyn Per Pharmacy) 1 each PRN DAILY PRN MC SEE COMMENTS; Start 11/18/20 at 12:00 Piperacillin Sod/ Tazobactam Sod 3.375 gm/Sodium Chloride 50 ml @ 100 mls/hr Q6HRS IV Last administered on 11/19/20at 05:44; Start 11/18/20 at 12:00 Phytonadione (Vitamin K Ampule) 5 mg 1X ONCE SQ Last administered on 11/18/20at 12:50; Start 11/18/20 at 12:15; Stop 11/18/20 at 12:16; Status DC Lorazepam (Ativan Inj) 2 mg PRN Q1HR PRN IV For CIWA 8-14 Last administered on 11/19/20at 06:37; Start 11/18/20 at 18:15 Potassium Chloride/Water 100 ml @ 100 mls/hr Q1H IV ; Start 11/19/20 at 08:30; Stop 11/19/20 at 10:29 Magnesium Sulfate 50 ml @ 25 mls/hr PRN DAILY PRN IV for Mag < 1.7 on am labs; Start 11/19/20 at 08:30 Allergies Allergies: Coded Allergies: No Known Drug Allergies (Unverified , 11/17/20) ROS Review of System Cannot be obtained due to mental status changes Physical Exam General: Other (Comfortable, not arousable) HEENT: Atraumatic Lungs: Clear to auscultation Heart: Regular rate Abdomen: Soft Extremities: No edema Vitals VITALS Vital Signs Date Time Temp Pulse Resp B/P (MAP) Pulse Ox O2 Delivery O2 Flow Rate FiO2 11/19/20 08:00 86 23 116/55 (75) 95 Room Air 11/19/20 04:00 100.1 100.1 Labs Labs Laboratory Tests Test 11/17/20 18:00 11/17/20 18:10 11/17/20 23:15 11/18/20 05:10 Hemoglobin 6.7 g/dL (12.0-15.5) 7.0 g/dL (12.0-15.5) 6.9 g/dL (12.0-15.5) Hematocrit 20.8 % (36.0-47.0) 21.9 % (36.0-47.0) 21.3 % (36.0-47.0) Mean Corpuscular Hemoglobin Concent 32 g/dL (31-37) 32 g/dL (31-37) 32 g/dL (31-37) Creatine Kinase 64 U/L (26-192) Hepatitis A IgM Antibody Nonreactive (Nonreactive) Hepatitis B Surface Antigen Nonreactive (Nonreactive) Hepatitis B Core IgM Antibody Nonreactive (Nonreactive) Hepatitis C IgG Antibody Nonreactive (Nonreactive) SARS-CoV-2 RNA (KARLA) Negative (Negative) SARS-CoV-2 Antigen (Rapid) Negative (NEGATIVE) White Blood Count 5.4 x10^3/uL (4.0-11.0) 4.0 x10^3/uL (4.0-11.0) Red Blood Count 2.41 x10^6/uL (3.50-5.40) 2.35 x10^6/uL (3.50-5.40) Mean Corpuscular Volume 91 fL (79-100) 91 fL (79-100) Mean Corpuscular Hemoglobin 29 pg (25-35) 29 pg (25-35) Red Cell Distribution Width 20.2 % (11.5-14.5) 19.2 % (11.5-14.5) Platelet Count 218 x10^3/uL (140-400) 187 x10^3/uL (140-400) Neutrophils (%) (Auto) 73 % (31-73) Lymphocytes (%) (Auto) 15 % (24-48) Monocytes (%) (Auto) 10 % (0-9) Eosinophils (%) (Auto) 1 % (0-3) Basophils (%) (Auto) 0 % (0-3) Neutrophils # (Auto) 3.0 x10^3/uL (1.8-7.7) Lymphocytes # (Auto) 0.6 x10^3/uL (1.0-4.8) Monocytes # (Auto) 0.4 x10^3/uL (0.0-1.1) Eosinophils # (Auto) 0.0 x10^3/uL (0.0-0.7) Basophils # (Auto) 0.0 x10^3/uL (0.0-0.2) Prothrombin Time 28.1 SEC (11.7-14.0) Prothromb Time International Ratio 2.6 (0.8-1.1) Sodium Level 137 mmol/L (136-145) Potassium Level 4.0 mmol/L (3.5-5.1) Chloride Level 101 mmol/L (98-107) Carbon Dioxide Level 22 mmol/L (21-32) Anion Gap 14 (6-14) Blood Urea Nitrogen 10 mg/dL (7-20) Creatinine 1.8 mg/dL (0.6-1.0) Estimated GFR (Cockcroft-Gault) 31.0 BUN/Creatinine Ratio 6 (6-20) Glucose Level 73 mg/dL (70-99) Calcium Level 7.0 mg/dL (8.5-10.1) Total Bilirubin 9.0 mg/dL (0.2-1.0) Aspartate Amino Transf (AST/SGOT) 1172 U/L (15-37) Alanine Aminotransferase (ALT/SGPT) 234 U/L (14-59) Alkaline Phosphatase 142 U/L (46-116) Total Protein 4.7 g/dL (6.4-8.2) Albumin 1.9 g/dL (3.4-5.0) Albumin/Globulin Ratio 0.7 (1.0-1.7) Test 11/18/20 13:40 11/18/20 17:57 11/19/20 06:05 Hemoglobin 8.1 g/dL (12.0-15.5) 7.7 g/dL (12.0-15.5) Hematocrit 24.8 % (36.0-47.0) 23.6 % (36.0-47.0) Mean Corpuscular Hemoglobin Concent 33 g/dL (31-37) 33 g/dL (31-37) Lactic Acid Level 2.1 mmol/L (0.4-2.0) 2.2 mmol/L (0.4-2.0) Ammonia 40 mcmol/L (11-34) 35 mcmol/L (11-34) Troponin I Quantitative 0.050 ng/mL (0.000-0.055) Procalcitonin 4.43 ng/mL (0.00-0.10) White Blood Count 4.3 x10^3/uL (4.0-11.0) Red Blood Count 2.64 x10^6/uL (3.50-5.40) Mean Corpuscular Volume 89 fL (79-100) Mean Corpuscular Hemoglobin 29 pg (25-35) Red Cell Distribution Width 19.1 % (11.5-14.5) Platelet Count 204 x10^3/uL (140-400) Neutrophils (%) (Auto) 68 % (31-73) Lymphocytes (%) (Auto) 15 % (24-48) Monocytes (%) (Auto) 16 % (0-9) Eosinophils (%) (Auto) 1 % (0-3) Basophils (%) (Auto) 1 % (0-3) Neutrophils # (Auto) 2.9 x10^3/uL (1.8-7.7) Lymphocytes # (Auto) 0.6 x10^3/uL (1.0-4.8) Monocytes # (Auto) 0.7 x10^3/uL (0.0-1.1) Eosinophils # (Auto) 0.0 x10^3/uL (0.0-0.7) Basophils # (Auto) 0.0 x10^3/uL (0.0-0.2) Prothrombin Time 25.8 SEC (11.7-14.0) Prothromb Time International Ratio 2.4 (0.8-1.1) Laboratory Tests Test 11/18/20 13:40 11/18/20 17:57 11/19/20 06:05 Hemoglobin 8.1 g/dL (12.0-15.5) 7.7 g/dL (12.0-15.5) Hematocrit 24.8 % (36.0-47.0) 23.6 % (36.0-47.0) Mean Corpuscular Hemoglobin Concent 33 g/dL (31-37) 33 g/dL (31-37) Lactic Acid Level 2.1 mmol/L (0.4-2.0) 2.2 mmol/L (0.4-2.0) Ammonia 40 mcmol/L (11-34) 35 mcmol/L (11-34) Troponin I Quantitative 0.050 ng/mL (0.000-0.055) Procalcitonin 4.43 ng/mL (0.00-0.10) White Blood Count 4.3 x10^3/uL (4.0-11.0) Red Blood Count 2.64 x10^6/uL (3.50-5.40) Mean Corpuscular Volume 89 fL (79-100) Mean Corpuscular Hemoglobin 29 pg (25-35) Red Cell Distribution Width 19.1 % (11.5-14.5) Platelet Count 204 x10^3/uL (140-400) Neutrophils (%) (Auto) 68 % (31-73) Lymphocytes (%) (Auto) 15 % (24-48) Monocytes (%) (Auto) 16 % (0-9) Eosinophils (%) (Auto) 1 % (0-3) Basophils (%) (Auto) 1 % (0-3) Neutrophils # (Auto) 2.9 x10^3/uL (1.8-7.7) Lymphocytes # (Auto) 0.6 x10^3/uL (1.0-4.8) Monocytes # (Auto) 0.7 x10^3/uL (0.0-1.1) Eosinophils # (Auto) 0.0 x10^3/uL (0.0-0.7) Basophils # (Auto) 0.0 x10^3/uL (0.0-0.2) Prothrombin Time 25.8 SEC (11.7-14.0) Prothromb Time International Ratio 2.4 (0.8-1.1) Assessment/Plan Assessment/Plan 1. Acute metabolic encephalopathy, most likely hepatic etiology. Treat per GI team. 2. Hypotension, presently resolved, not on any pressors. Telemetry showed sinus rhythm. Check 2D echo to assess LV systolic function. Continue intravenous hydration. 3. Anemia, most probably acute blood loss s/p transfusion. 4. Acute renal failure, probably hepatorenal. Nephrology following. 5. Chronic alcohol use disorder, anxiety, depression: Treat per IM Thank you for your consultation SHERINE VIEYRA MD Nov 19, 2020 08:25
[2020-11-19] MEDS: POTASSIUM CHLORIDE 20MEQ 100 ML IV SCH ×2 (08:29→09:30)
[2020-11-19] MEDS: ELECTROLYTE (ICU) PROTOCOL. MC SCH (09:00)
[2020-11-19] MEDS: MULTIVIT INFUSN,ADULT 4,VIT K 10 ML, THIAMINE INJ 100 MG, FOLIC ACID INJ 1 MG in IV NOR... IV SCH ×2 (09:00→22:08)
[2020-11-19] MEDS ORDERED: ATROPINE 0.5 MG/5 ML DISP.SYRINGE. IV PRN (10:00)
[2020-11-19] MEDS ORDERED: IV NORMAL SALINE 500ML BAG 500 ML IV PRN (10:00)
[2020-11-19] MEDS: DEXMEDETOMIDINE 400 MCG in IV NORMAL SALINE 100ML 96 ML IV PRN ×2 (10:00→12:59)
--- NOTE | 2020-11-19 10:50 | PDOC ---
PROGRESS NOTES Date of Service: DATE: 11/19/20 TIME: 10:50 Chief Complaint Chief Complaint mpression: Head CT: 1. No acute intracranial abnormality. Maxillofacial CT: 1. Degraded evaluation due to patient motion. The mandible is not entirely evaluated. No definite fracture. If persistent clinical concern, recommend repeat imaging. Cervical spine CT: 1. Significantly degraded evaluation due to patient motion. No definite fracture. Recommend repeat imaging when patient's condition allows. VTE Prophylaxis Ordered VTE Prophylaxis Devices: Yes VTE Pharmacological Prophylaxi: Contraindicated Assessment/Plan IMPRESSION Acute metabolic encephalopathy - seems likely hepatic in origin due fatty liver and alcoholic liver disease likely. Lactulose enemas prn until confusion clears. Rectal tube. GI consulted Acute anemia - likely GI loss. H/o PUD per , unclear if this was an anastomotic ulcer or otherwise, he will obtain old medical records. Transfuse for Hb <7. Repeat Hb. IV PPI, IV octreotide Acute Renal failure - likely vasomotor nephropathy. Will fluid challenge with normal saline, prn daily colloidal fluid with albumin as well. Monitor renal function. may be hepatorenal Liver failure, acute - MELD score on admit is 40. GI consulted. Avoid hepatotoxins. No history of acetaminophen use per . Will maintain BP. Trend hepatic function Acute hepatitis - appears alcoholic. Will need to abstain from alcohol and needs referral to transplant director of employee development in the future if safely discharged eventually Hyponatremia - likely hepatic vs hypovolemic. Will fluid challenge, monitor sodium. Overall worsens her prognosis Hydropic gallbladder - incidentally noted on CT. Ultrasound will better elucidate if this is acute cholecystitis Hydropic gallbladder with gallbladder sludge. Morbid obesity s/p gastric bypass in 2008 - no significant f/u with bariatrics per . Alcohol use disorder - ongoing. Will need counseling and abstinence as above Anxiety, Depression - will reconcile meds, when taking po can slowly reintroduce Hypertension - currently hypotensive. May start BB to decrease splanchnic blood flow when she can tolerate it Smoker - will college counselor on cessation when patient is more alert EARL severe protein-caloric malnutrition HYPOCALCEMIA FEN -NPO PPX - SCDs, PPI gtt FULL CODE Dispo - ICU for above NEPHROLOGY CONSULT gen surgery consult re ct abdomen, abd pain ID CONSULT BLOOD CULT Emperic iv zosyn pending ID consult procalcitonin cxr neurology consult VIT D LEVEL overall prognosis seems poor CC time 33 minutes Justifications for Admission Justifications for Admission Other Justification History of Present Illness History of Present Illness Identification/Chief Complaint Chief Complaint Confusion Source Source: Caregiver, Chart review History of Present Illness History of Present Illness Ms Phipps is a 40yo F w/ PMHx morbid obesity s/p gastric bypass ini 2008, alcohol use disorder, Anxiety, Depression, Hypertension, IBS, Kidney Stones, Pancreatitis, chronic back pain, and smoker who presented to [facility] ED in [place], [place] via EMS for altered mental status. Her called because patient has been on couch has been increasingly confused over the past 5 days. Per EMS report she had a fall a few days ago when she was intoxicated. EKG appears sinus tachycardia, heart rate [address] elevation or depression, no ectopy. Normal intervals. T waves unremarkable. CT chest abdomen pelvis revealed severe hepatic steatosis and cholelithiasis with hydropic gallbladder and gastric bypass, no other acute findings. CT head with no acute hemorrhage. Labs with WBC 7.5, Hb 6.4, platelets 237, Na 130, K 4.3, BUN 10, Cr 2.3, glucose 72, Trop 0, BNP 939, Albumin 1.8, INR 4.9, ammonia 44, bilirubin 11, AST 2744, ALT 400, Alk phos 172, Lipase 42 Given concern for acute liver failure and acute renal failure patient accepted for transfer to [facility] for specialist consultation. Seen bedside with her , patient following very few commands, otherwise drowsy, not oriented, moaning, not articulating well or making meaningful eye contact. notes that sometimes this might happen for a week at a time at home and frightens their 11 and 17 year old children. He notes "it has been a rough year". She was [facility] last October after a DUI and parole violation of intoxication with alcohol that led to her serving 17 months in [facility] [place]. She has struggled with substance use disorder, specifically alcohol, according to her since her gastric bypass in 2008, has been previously treated for this as well as pancreatitis. Admitted to ICU for further treatment. Due to the inability to maintain a peripheral IV and concern for potential uncontrollable bleeding in the neck a right femoral central venous catheter was placed for medications, blood transfusion and lab draw purposes for frequent lab draws. Past Medical History Cardiovascular: HTN GI: GERD, GI bleed, Gastritis, Peptic Ulcer disease Psych: Anxiety, Addictions, Depression Past Surgical History Past Surgical History Gastric bypass, peptic ulcer Past Surgical History: Family History Family History: Family History Unknown Social History Smoke: 1 pack per day ALCOHOL: heavy Drugs: None Allergies Allergies: Coded Allergies: No Known Drug Allergies (Unverified , 11/17/20) ROS Review of System Unable to obtain due to confusion, but c/o abd pain to me MELD score on admit is 40 , PROGNOSIS VERY GUARDED 11-19 VERY ANEMIC, HYPOTENSIVE 11-18 ECHo pending, cardiology consulted stools slightly red per RN nh4 pending ID CONSULT NEUROLOGY CONSULT Gen surg consult ECHO PENDING IONIZED CA 1.05, VIT D LEVEL pending 32 min cc time 11-18 VERY ANEMIC, HYPOTENSIVE OVERNIGHT ECHo pending, cardiology consulted nh4 pending ID CONSULT NEUROLOGY CONSULT Gen surg consult 34 min cc time Vitals Vitals Vital Signs Date Time Temp Pulse Resp B/P (MAP) Pulse Ox O2 Delivery O2 Flow Rate FiO2 11/19/20 09:43 95 Room Air 11/19/20 08:00 86 23 116/55 (75) 11/19/20 04:00 100.1 100.1 Physical Exam Physical Exam Heart: Regular rate Lungs: Clear Abdomen: Normal bowel sounds, Soft, Other (RUQ pain, slight fluid wave) Extremities: No clubbing, No cyanosis, No edema, Normal pulses, No tenderness/swelling Skin: No rashes, No breakdown, No significant lesion ENCEPHALOPATHIC General: Other (Comfortable, not arousable) Heart: Regular rate Lungs: Clear Abdomen: Soft Extremities: No cyanosis, No edema Skin: No rashes, No breakdown, No significant lesion Labs LABS Clinical History: Hypotension. An AP erect portable digital radiograph of the chest was obtained. The patient is rotated to the left. The cardiac silhouette is normal in size. The mediastinal silhouette is within normal limits. No acute pulmonary infiltrate is seen. No pleural effusion or pneumothorax is noted. Mild to moderate S-shaped curvature of the thoracolumbar spine is seen. Degenerative changes are seen involving both shoulders, left greater than right. IMPRESSION: No acute abnormality is seen. Electronically signed by: Sebastián Delcid MD (11/19/2020 7:05 AM) [id number] DICTATED and SIGNED BY: SEBASTIÁN DELCID MD DATE: 11/19/20 [id number] Laboratory Tests Test 11/18/20 13:40 11/18/20 17:57 11/19/20 06:05 11/19/20 09:00 Hemoglobin 8.1 g/dL (12.0-15.5) 7.7 g/dL (12.0-15.5) Hematocrit 24.8 % (36.0-47.0) 23.6 % (36.0-47.0) Mean Corpuscular Hemoglobin Concent 33 g/dL (31-37) 33 g/dL (31-37) Lactic Acid Level 2.1 mmol/L (0.4-2.0) 2.2 mmol/L (0.4-2.0) Ammonia 40 mcmol/L (11-34) 35 mcmol/L (11-34) Troponin I Quantitative 0.050 ng/mL (0.000-0.055) Procalcitonin 4.43 ng/mL (0.00-0.10) White Blood Count 4.3 x10^3/uL (4.0-11.0) Red Blood Count 2.64 x10^6/uL (3.50-5.40) Mean Corpuscular Volume 89 fL (79-100) Mean Corpuscular Hemoglobin 29 pg (25-35) Red Cell Distribution Width 19.1 % (11.5-14.5) Platelet Count 204 x10^3/uL (140-400) Neutrophils (%) (Auto) 68 % (31-73) Lymphocytes (%) (Auto) 15 % (24-48) Monocytes (%) (Auto) 16 % (0-9) Eosinophils (%) (Auto) 1 % (0-3) Basophils (%) (Auto) 1 % (0-3) Neutrophils # (Auto) 2.9 x10^3/uL (1.8-7.7) Lymphocytes # (Auto) 0.6 x10^3/uL (1.0-4.8) Monocytes # (Auto) 0.7 x10^3/uL (0.0-1.1) Eosinophils # (Auto) 0.0 x10^3/uL (0.0-0.7) Basophils # (Auto) 0.0 x10^3/uL (0.0-0.2) Prothrombin Time 25.8 SEC (11.7-14.0) Prothromb Time International Ratio 2.4 (0.8-1.1) Magnesium Level 1.8 mg/dL (1.8-2.4) Sodium Level 142 mmol/L (136-145) Potassium Level 3.4 mmol/L (3.5-5.1) Chloride Level 105 mmol/L (98-107) Carbon Dioxide Level 24 mmol/L (21-32) Anion Gap 13 (6-14) Blood Urea Nitrogen 14 mg/dL (7-20) Creatinine 1.2 mg/dL (0.6-1.0) Estimated GFR (Cockcroft-Gault) 49.5 BUN/Creatinine Ratio 12 (6-20) Glucose Level 86 mg/dL (70-99) Calcium Level 7.5 mg/dL (8.5-10.1) Total Bilirubin 9.0 mg/dL (0.2-1.0) Aspartate Amino Transf (AST/SGOT) 540 U/L (15-37) Alanine Aminotransferase (ALT/SGPT) 158 U/L (14-59) Alkaline Phosphatase 140 U/L (46-116) Total Protein 4.5 g/dL (6.4-8.2) Albumin 1.6 g/dL (3.4-5.0) Albumin/Globulin Ratio 0.6 (1.0-1.7) Comment Review of Relevant I have reviewed the following items josue (where applicable) has been applied. Labs Laboratory Tests Test 11/17/20 18:00 11/17/20 18:10 11/17/20 23:15 11/18/20 05:10 Hemoglobin 6.7 g/dL (12.0-15.5) 7.0 g/dL (12.0-15.5) 6.9 g/dL (12.0-15.5) Hematocrit 20.8 % (36.0-47.0) 21.9 % (36.0-47.0) 21.3 % (36.0-47.0) Mean Corpuscular Hemoglobin Concent 32 g/dL (31-37) 32 g/dL (31-37) 32 g/dL (31-37) Creatine Kinase 64 U/L (26-192) Hepatitis A IgM Antibody Nonreactive (Nonreactive) Hepatitis B Surface Antigen Nonreactive (Nonreactive) Hepatitis B Core IgM Antibody Nonreactive (Nonreactive) Hepatitis C IgG Antibody Nonreactive (Nonreactive) SARS-CoV-2 RNA (KARLA) Negative (Negative) SARS-CoV-2 Antigen (Rapid) Negative (NEGATIVE) White Blood Count 5.4 x10^3/uL (4.0-11.0) 4.0 x10^3/uL (4.0-11.0) Red Blood Count 2.41 x10^6/uL (3.50-5.40) 2.35 x10^6/uL (3.50-5.40) Mean Corpuscular Volume 91 fL (79-100) 91 fL (79-100) Mean Corpuscular Hemoglobin 29 pg (25-35) 29 pg (25-35) Red Cell Distribution Width 20.2 % (11.5-14.5) 19.2 % (11.5-14.5) Platelet Count 218 x10^3/uL (140-400) 187 x10^3/uL (140-400) Neutrophils (%) (Auto) 73 % (31-73) Lymphocytes (%) (Auto) 15 % (24-48) Monocytes (%) (Auto) 10 % (0-9) Eosinophils (%) (Auto) 1 % (0-3) Basophils (%) (Auto) 0 % (0-3) Neutrophils # (Auto) 3.0 x10^3/uL (1.8-7.7) Lymphocytes # (Auto) 0.6 x10^3/uL (1.0-4.8) Monocytes # (Auto) 0.4 x10^3/uL (0.0-1.1) Eosinophils # (Auto) 0.0 x10^3/uL (0.0-0.7) Basophils # (Auto) 0.0 x10^3/uL (0.0-0.2) Prothrombin Time 28.1 SEC (11.7-14.0) Prothromb Time International Ratio 2.6 (0.8-1.1) Sodium Level 137 mmol/L (136-145) Potassium Level 4.0 mmol/L (3.5-5.1) Chloride Level 101 mmol/L (98-107) Carbon Dioxide Level 22 mmol/L (21-32) Anion Gap 14 (6-14) Blood Urea Nitrogen 10 mg/dL (7-20) Creatinine 1.8 mg/dL (0.6-1.0) Estimated GFR (Cockcroft-Gault) 31.0 BUN/Creatinine Ratio 6 (6-20) Glucose Level 73 mg/dL (70-99) Calcium Level 7.0 mg/dL (8.5-10.1) Total Bilirubin 9.0 mg/dL (0.2-1.0) Aspartate Amino Transf (AST/SGOT) 1172 U/L (15-37) Alanine Aminotransferase (ALT/SGPT) 234 U/L (14-59) Alkaline Phosphatase 142 U/L (46-116) Total Protein 4.7 g/dL (6.4-8.2) Albumin 1.9 g/dL (3.4-5.0) Albumin/Globulin Ratio 0.7 (1.0-1.7) Test 11/18/20 13:40 11/18/20 17:57 11/19/20 06:05 11/19/20 09:00 Hemoglobin 8.1 g/dL (12.0-15.5) 7.7 g/dL (12.0-15.5) Hematocrit 24.8 % (36.0-47.0) 23.6 % (36.0-47.0) Mean Corpuscular Hemoglobin Concent 33 g/dL (31-37) 33 g/dL (31-37) Lactic Acid Level 2.1 mmol/L (0.4-2.0) 2.2 mmol/L (0.4-2.0) Ammonia 40 mcmol/L (11-34) 35 mcmol/L (11-34) Troponin I Quantitative 0.050 ng/mL (0.000-0.055) Procalcitonin 4.43 ng/mL (0.00-0.10) White Blood Count 4.3 x10^3/uL (4.0-11.0) Red Blood Count 2.64 x10^6/uL (3.50-5.40) Mean Corpuscular Volume 89 fL (79-100) Mean Corpuscular Hemoglobin 29 pg (25-35) Red Cell Distribution Width 19.1 % (11.5-14.5) Platelet Count 204 x10^3/uL (140-400) Neutrophils (%) (Auto) 68 % (31-73) Lymphocytes (%) (Auto) 15 % (24-48) Monocytes (%) (Auto) 16 % (0-9) Eosinophils (%) (Auto) 1 % (0-3) Basophils (%) (Auto) 1 % (0-3) Neutrophils # (Auto) 2.9 x10^3/uL (1.8-7.7) Lymphocytes # (Auto) 0.6 x10^3/uL (1.0-4.8) Monocytes # (Auto) 0.7 x10^3/uL (0.0-1.1) Eosinophils # (Auto) 0.0 x10^3/uL (0.0-0.7) Basophils # (Auto) 0.0 x10^3/uL (0.0-0.2) Prothrombin Time 25.8 SEC (11.7-14.0) Prothromb Time International Ratio 2.4 (0.8-1.1) Magnesium Level 1.8 mg/dL (1.8-2.4) Sodium Level 142 mmol/L (136-145) Potassium Level 3.4 mmol/L (3.5-5.1) Chloride Level 105 mmol/L (98-107) Carbon Dioxide Level 24 mmol/L (21-32) Anion Gap 13 (6-14) Blood Urea Nitrogen 14 mg/dL (7-20) Creatinine 1.2 mg/dL (0.6-1.0) Estimated GFR (Cockcroft-Gault) 49.5 BUN/Creatinine Ratio 12 (6-20) Glucose Level 86 mg/dL (70-99) Calcium Level 7.5 mg/dL (8.5-10.1) Total Bilirubin 9.0 mg/dL (0.2-1.0) Aspartate Amino Transf (AST/SGOT) 540 U/L (15-37) Alanine Aminotransferase (ALT/SGPT) 158 U/L (14-59) Alkaline Phosphatase 140 U/L (46-116) Total Protein 4.5 g/dL (6.4-8.2) Albumin 1.6 g/dL (3.4-5.0) Albumin/Globulin Ratio 0.6 (1.0-1.7) Laboratory Tests Test 11/18/20 13:40 11/18/20 17:57 11/19/20 06:05 11/19/20 09:00 Hemoglobin 8.1 g/dL (12.0-15.5) 7.7 g/dL (12.0-15.5) Hematocrit 24.8 % (36.0-47.0) 23.6 % (36.0-47.0) Mean Corpuscular Hemoglobin Concent 33 g/dL (31-37) 33 g/dL (31-37) Lactic Acid Level 2.1 mmol/L (0.4-2.0) 2.2 mmol/L (0.4-2.0) Ammonia 40 mcmol/L (11-34) 35 mcmol/L (11-34) Troponin I Quantitative 0.050 ng/mL (0.000-0.055) Procalcitonin 4.43 ng/mL (0.00-0.10) White Blood Count 4.3 x10^3/uL (4.0-11.0) Red Blood Count 2.64 x10^6/uL (3.50-5.40) Mean Corpuscular Volume 89 fL (79-100) Mean Corpuscular Hemoglobin 29 pg (25-35) Red Cell Distribution Width 19.1 % (11.5-14.5) Platelet Count 204 x10^3/uL (140-400) Neutrophils (%) (Auto) 68 % (31-73) Lymphocytes (%) (Auto) 15 % (24-48) Monocytes (%) (Auto) 16 % (0-9) Eosinophils (%) (Auto) 1 % (0-3) Basophils (%) (Auto) 1 % (0-3) Neutrophils # (Auto) 2.9 x10^3/uL (1.8-7.7) Lymphocytes # (Auto) 0.6 x10^3/uL (1.0-4.8) Monocytes # (Auto) 0.7 x10^3/uL (0.0-1.1) Eosinophils # (Auto) 0.0 x10^3/uL (0.0-0.7) Basophils # (Auto) 0.0 x10^3/uL (0.0-0.2) Prothrombin Time 25.8 SEC (11.7-14.0) Prothromb Time International Ratio 2.4 (0.8-1.1) Magnesium Level 1.8 mg/dL (1.8-2.4) Sodium Level 142 mmol/L (136-145) Potassium Level 3.4 mmol/L (3.5-5.1) Chloride Level 105 mmol/L (98-107) Carbon Dioxide Level 24 mmol/L (21-32) Anion Gap 13 (6-14) Blood Urea Nitrogen 14 mg/dL (7-20) Creatinine 1.2 mg/dL (0.6-1.0) Estimated GFR (Cockcroft-Gault) 49.5 BUN/Creatinine Ratio 12 (6-20) Glucose Level 86 mg/dL (70-99) Calcium Level 7.5 mg/dL (8.5-10.1) Total Bilirubin 9.0 mg/dL (0.2-1.0) Aspartate Amino Transf (AST/SGOT) 540 U/L (15-37) Alanine Aminotransferase (ALT/SGPT) 158 U/L (14-59) Alkaline Phosphatase 140 U/L (46-116) Total Protein 4.5 g/dL (6.4-8.2) Albumin 1.6 g/dL (3.4-5.0) Albumin/Globulin Ratio 0.6 (1.0-1.7) Medications Current Medications Lorazepam (Ativan Inj) 0.5 mg PRN Q6HRS PRN IVP ANXIETY / AGITATION Last administered on 11/18/20at 18:10; Start 11/17/20 at 16:15; Stop 11/19/20 at 01:14; Status DC Ondansetron HCl (Zofran) 4 mg PRN Q6HRS PRN IVP NAUSEA/VOMITING; Start 11/17/20 at 16:15 Prochlorperazine Edisylate (Compazine) 5 mg PRN Q6HRS PRN IVP NAUSEA/VOMITING; Start 11/17/20 at 16:15 Info (Icu Electrolyte Protocol) 1 ea DAILY MC ; Start 11/18/20 at 09:00 Sodium Chloride (Normal Saline Flush) 3 ml QSHIFT PRN IV AFTER MEDS AND BLOOD DRAWS; Start 11/17/20 at 16:15 Sodium Chloride 1,000 ml @ 1,000 mls/hr Q1H IV Last administered on 11/17/20at 17:50; Start 11/17/20 at 16:15; Stop 11/17/20 at 17:14; Status DC Fentanyl Citrate (Fentanyl 2ml Vial) 25 mcg PRN Q1HR PRN IV SEVERE PAIN 7-10 Last administered on 11/19/20at 09:43; Start 11/17/20 at 16:15 Lactulose (Lactulose) 20 gm PRN Q12HR PRN PO CONSTIPATION; Start 11/17/20 at 16:15; Stop 11/17/20 at 17:40; Status DC Bisacodyl (Dulcolax Supp) 10 mg PRN DAILY PRN SD CONSTIPATION; Start 11/17/20 at 16:15 Pantoprazole Sodium (PROTONIX VIAL for IV PUSH) 40 mg DAILYAC IVP ; Start 11/18/20 at 07:30; Stop 11/17/20 at 17:40; Status DC Lactulose (LACTULOSE 300ML for RECTAL) 200 gm Q6HRS SD ; Start 11/17/20 at 18:00; Stop 11/17/20 at 17:40; Status DC Sodium Bicarbonate 75 meq/Sodium Chloride 1,075 ml @ 125 mls/hr Q8H36M IV Last administered on 11/19/20at 05:44; Start 11/17/20 at 17:00; Stop 11/19/20 at 09:16; Status DC Pantoprazole Sodium (PROTONIX VIAL for IV PUSH) 80 mg 1X ONCE IVP Last administered on 11/17/20at 17:50; Start 11/17/20 at 18:00; Stop 11/17/20 at 18:01; Status DC Pantoprazole Sodium 80 mg/ Sodium Chloride 100 ml @ 10 mls/hr Q10H IV Last administered on 11/19/20at 04:12; Start 11/17/20 at 18:00 Octreotide Acetate 500 mcg/ Sodium Chloride 101 ml @ 10.1 mls/hr CONT PRN IV SEE I/O RECORD Last administered on 11/19/20at 01:16; Start 11/17/20 at 17:30 Lactulose (LACTULOSE 300ML for RECTAL) 200 gm Q2HR SD Last administered on 11/19/20at 08:29; Start 11/17/20 at 18:00 Magnesium Sulfate 50 ml @ 25 mls/hr 1X ONCE IV Last administered on 11/17/20at 18:34; Start 11/17/20 at 18:30; Stop 11/17/20 at 20:29; Status DC Albumin Human 500 ml @ 125 mls/hr PRN DAILY PRN IV HYPOTENSION Last administered on 11/18/20at 01:47; Start 11/18/20 at 00:15 Multivitamins 10 ml/Thiamine HCl 100 mg/Folic Acid 1 mg/Sodium Chloride 1,011.2 ml @ 100 mls/ hr DAILY IV Last administered on 11/18/20at 09:23; Start 11/18/20 at 09:00; Stop 11/22/20 at 19:07 Thiamine HCl 100 mg/Dextrose 51 ml @ 100 mls/hr DAILY IV ; Start 11/23/20 at 09:00; Stop 11/27/20 at 09:31 Lorazepam (Ativan) 2 mg Q6H PO ; Start 11/18/20 at 08:00; Stop 11/19/20 at 01:14; Status DC Lactulose (Lactulose) 30 gm PRN DAILY PRN PO GI SYMPTOMS; Start 11/18/20 at 08:00; Status UNV Lactulose (Lactulose) 30 gm PRN DAILY PRN PO GI SYMPTOMS; Start 11/18/20 at 08:30; Status UNV Piperacillin Sod/ Tazobactam Sod (Zosyn Per Pharmacy) 1 each PRN DAILY PRN MC SEE COMMENTS; Start 11/18/20 at 12:00 Piperacillin Sod/ Tazobactam Sod 3.375 gm/Sodium Chloride 50 ml @ 100 mls/hr Q6HRS IV Last administered on 11/19/20at 05:44; Start 11/18/20 at 12:00 Phytonadione (Vitamin K Ampule) 5 mg 1X ONCE SQ Last administered on 11/18/20at 12:50; Start 11/18/20 at 12:15; Stop 11/18/20 at 12:16; Status DC Lorazepam (Ativan Inj) 2 mg PRN Q1HR PRN IV For CIWA 8-14 Last administered on 11/19/20at 09:42; Start 11/18/20 at 18:15 Potassium Chloride/Water 100 ml @ 100 mls/hr Q1H IV Last administered on 11/19/20at 08:29; Start 11/19/20 at 08:30; Stop 11/19/20 at 10:29; Status DC Magnesium Sulfate 50 ml @ 25 mls/hr PRN DAILY PRN IV for Mag < 1.7 on am labs; Start 11/19/20 at 08:30 Albumin Human 100 ml @ 100 mls/hr TID IV ; Start 11/19/20 at 10:00; Stop 11/20/20 at 21:59 Lorazepam (Ativan Inj) 4 mg PRN Q1HR PRN IV For CIWA 15 or greater; Start 11/19/20 at 10:00 Dexmedetomidine HCl 400 mcg/ Sodium Chloride 100 ml @ 0 mls/hr CONT PRN IV PER PROTOCOL; Start 11/19/20 at 10:00 Sodium Chloride 500 ml @ 500 mls/hr 1X PRN PRN IV SEE COMMENTS; Start 11/19/20 at 10:00 Atropine Sulfate (ATROPINE 0.5mg SYRINGE) 0.5 mg PRN Q5MIN PRN IV SEE COMMENTS; Start 11/19/20 at 10:00 Vitals/I & O Vital Sign - Last 24 Hours 11/18/20 11/18/20 11/18/20 11/18/20 11:00 12:00 12:00 13:00 Temp 98.4 98.4 Pulse 89 104 100 Resp 20 23 20 B/P (MAP) 114/63 (80) 151/75 (100) 107/57 (74) Pulse Ox 95 98 95 O2 Delivery Room Air Room Air Room Air Room Air 11/18/20 11/18/20 11/18/20 11/18/20 14:00 15:00 16:00 16:00 Temp 98.1 98.1 Pulse 116 112 94 Resp 20 20 20 B/P (MAP) 138/86 (103) 148/81 (103) 127/65 (85) Pulse Ox 95 95 95 O2 Delivery Room Air Room Air Room Air Room Air 11/18/20 11/18/20 11/18/20 11/18/20 17:00 18:00 19:00 20:00 Temp 98.9 98.9 Pulse 90 90 90 93 Resp 20 20 24 26 B/P (MAP) 117/52 (73) 145/86 (105) 126/52 (76) 112/67 (82) Pulse Ox 95 95 95 95 O2 Delivery Room Air Room Air Room Air Room Air 11/18/20 11/18/20 11/18/20 11/18/20 20:00 21:00 22:00 23:00 Pulse 112 90 118 Resp B/P (MAP) 135/75 (95) 94/53 (67) 95/77 (83) Pulse Ox 95 95 95 O2 Delivery Room Air Room Air Room Air Room Air 11/18/20 11/18/20 11/18/20 11/19/20 23:18 23:48 23:59 00:00 Temp 98.8 98.8 Pulse 87 Resp B/P (MAP) 82/43 (56) Pulse Ox 95 95 91 O2 Delivery Room Air Room Air Room Air Room Air 11/19/20 11/19/20 11/19/20 11/19/20 01:00 02:00 03:00 04:00 Temp 100.1 100.1 Pulse 81 119 113 121 Resp 25 B/P (MAP) 90/47 (61) 111/80 (90) 111/69 (83) 131/82 (98) Pulse Ox 95 97 99 99 O2 Delivery Room Air Room Air Room Air Room Air 11/19/20 11/19/20 11/19/20 11/19/20 04:00 05:00 06:38 07:00 Pulse 97 88 Resp B/P (MAP) 133/81 (98) 147/68 (94) Pulse Ox 96 96 92 O2 Delivery Room Air Room Air Room Air Room Air 11/19/20 11/19/20 11/19/20 11/19/20 07:08 08:00 08:00 09:43 Pulse 86 Resp 23 B/P (MAP) 116/55 (75) Pulse Ox 96 95 95 O2 Delivery Room Air Room Air Room Air Room Air Intake and Output 11/18/20 11/18/20 11/19/20 15:00 23:00 07:00 Intake Total 360 ml 2210 ml 2505 ml Output Total 170 ml 235 ml 170 ml Balance 190 ml 1975 ml 2335 ml Justicifation of Admission Dx: Justifications for Admission: Justification of Admission Dx: Yes Sepsis: Altered Mental Status Altered Mental Status: Altered Mental Status FUENTES MAIER MD Nov 19, 2020 10:50
--- NOTE | 2020-11-19 10:59 | PDOC ---
Date of Service: DATE: 11/19/20 TIME: 10:55 Subjective: Subjective: Pt more confused yesterday and started on Precedex. Per Nursing, stool looking "bloody" Rcd prbcs yesterday Objective: Vital Signs: Vital Signs Date Time Temp Pulse Resp B/P (MAP) Pulse Ox O2 Delivery O2 Flow Rate FiO2 11/19/20 09:43 95 Room Air 11/19/20 08:00 86 23 116/55 (75) 11/19/20 04:00 100.1 100.1 Labs: Laboratory Tests Test 11/18/20 13:40 11/18/20 17:57 11/19/20 06:05 11/19/20 09:00 Hemoglobin 8.1 g/dL (12.0-15.5) 7.7 g/dL (12.0-15.5) Hematocrit 24.8 % (36.0-47.0) 23.6 % (36.0-47.0) Mean Corpuscular Hemoglobin Concent 33 g/dL (31-37) 33 g/dL (31-37) Lactic Acid Level 2.1 mmol/L (0.4-2.0) 2.2 mmol/L (0.4-2.0) Ammonia 40 mcmol/L (11-34) 35 mcmol/L (11-34) Troponin I Quantitative 0.050 ng/mL (0.000-0.055) Procalcitonin 4.43 ng/mL (0.00-0.10) White Blood Count 4.3 x10^3/uL (4.0-11.0) Red Blood Count 2.64 x10^6/uL (3.50-5.40) Mean Corpuscular Volume 89 fL (79-100) Mean Corpuscular Hemoglobin 29 pg (25-35) Red Cell Distribution Width 19.1 % (11.5-14.5) Platelet Count 204 x10^3/uL (140-400) Neutrophils (%) (Auto) 68 % (31-73) Lymphocytes (%) (Auto) 15 % (24-48) Monocytes (%) (Auto) 16 % (0-9) Eosinophils (%) (Auto) 1 % (0-3) Basophils (%) (Auto) 1 % (0-3) Neutrophils # (Auto) 2.9 x10^3/uL (1.8-7.7) Lymphocytes # (Auto) 0.6 x10^3/uL (1.0-4.8) Monocytes # (Auto) 0.7 x10^3/uL (0.0-1.1) Eosinophils # (Auto) 0.0 x10^3/uL (0.0-0.7) Basophils # (Auto) 0.0 x10^3/uL (0.0-0.2) Prothrombin Time 25.8 SEC (11.7-14.0) Prothromb Time International Ratio 2.4 (0.8-1.1) Magnesium Level 1.8 mg/dL (1.8-2.4) Sodium Level 142 mmol/L (136-145) Potassium Level 3.4 mmol/L (3.5-5.1) Chloride Level 105 mmol/L (98-107) Carbon Dioxide Level 24 mmol/L (21-32) Anion Gap 13 (6-14) Blood Urea Nitrogen 14 mg/dL (7-20) Creatinine 1.2 mg/dL (0.6-1.0) Estimated GFR (Cockcroft-Gault) 49.5 BUN/Creatinine Ratio 12 (6-20) Glucose Level 86 mg/dL (70-99) Calcium Level 7.5 mg/dL (8.5-10.1) Total Bilirubin 9.0 mg/dL (0.2-1.0) Aspartate Amino Transf (AST/SGOT) 540 U/L (15-37) Alanine Aminotransferase (ALT/SGPT) 158 U/L (14-59) Alkaline Phosphatase 140 U/L (46-116) Total Protein 4.5 g/dL (6.4-8.2) Albumin 1.6 g/dL (3.4-5.0) Albumin/Globulin Ratio 0.6 (1.0-1.7) Physical Exam: Physical Exam: PE: Physical Exam HEENT: EOMI, Other (Adentulous, icteric sclera) Lungs: Clear to auscultation, Normal air movement Heart: S1S2, RRR, no thrills, no rubs, no gallops, no murmurs Abdomen: Normal bowel sounds, Soft, Other (RUQ pain, slight fluid wave) Rectal Exam: rectal tube with brown liquid Extremities: No clubbing, No cyanosis, No edema, Normal pulses, No tenderness/s welling Skin: No rashes, No breakdown, No significant lesion Neuro: Sensation intact, Cranial nerves 3-12 NL, Reflexes 2+, Other (Moving all 4 limbs) Psych/Mental Status: sedated Assessment & Plan: Assessment : A/P: 1)PSE: Cont lactulose enemas until she is more awake today. Once she is able to tke PO, plan for PO lactulose and xifaxin 2)Acute anemia - Hgb today 7.7-likely GI loss. H/o PUD suspect NSAID use as she decribes that this occurred before her RYGB. She admits to recent NSAID use.. Transfuse for Hb <7. Repeat Hb. IV PPI, IV octreotide. Favor EGD in next few days 3)Liver failure, acute - admit MELD score on admit is 40 on admits 4)Acute hepatitis - appears alcoholic. Will need to abstain from alcohol and needs referral to transplant grease worker in the future if safely discharged eventually 5)Hydropic gallbladder - incidentally noted on CT. Ultrasound with fatty liver and sludge 6) Morbid obesity s/p gastric bypass in 2008 - no significant f/u with bariatrics per . 7)Alcohol use disorder -banana bag Plan: A/P: 1)PSE: Cont lactulose enemas until she is more awake today. Once she is able to tke PO, plan for PO lactulose and xifaxin 2)Acute anemia - Hgb today 7.7-likely GI loss. H/o PUD suspect NSAID use as she decribes that this occurred before her RYGB. She admits to recent NSAID use.. Transfuse for Hb <7. Repeat Hb. IV PPI, IV octreotide. Favor EGD in next few days. Defer timing to Dr Moreno 3)Liver failure, acute - admit MELD score on admit is 40 on admits 4)Acute hepatitis - appears alcoholic. Will need to abstain from alcohol and needs referral to transplant grease worker in the future if safely discharged eventually 5)Hydropic gallbladder - incidentally noted on CT. Ultrasound with fatty liver and sludge 6) Morbid obesity s/p gastric bypass in 2008 - no significant f/u with bariatrics per . 7)Alcohol use disorder -banana bag Justicifation of Admission Dx: Justifications for Admission: Justification of Admission Dx: Yes Sepsis: Altered Mental Status Altered Mental Status: Altered Mental Status YOLANDA PANG MD Nov 19, 2020 10:59
[2020-11-19] MEDS: ALBUMIN HUMAN 25% 100 ML IV SCH ×3 (12:59→22:08)
--- NOTE | 2020-11-19 13:08 | CONS ---
DATE OF CONSULTATION: 11/19/2020 REASON FOR CONSULT: Sepsis. REFERRING PHYSICIAN: Dr. Jones. SOURCE: Chart review and medical staff. HISTORY OF PRESENT ILLNESS: A 40-year-old female admitted to ICU at [facility] on 11/17/2020. History obtained from chart and medical staff. The patient has history of chronic alcohol abuse, anxiety, depression, pancreatitis, who was brought by her to [facility] ED with history of worsening confusion over the past week. She apparently was released [facility] last October after serving for [employer] [place]. She was found to have acute hepatic failure, renal failure, metabolic encephalopathy, anemia and was transferred to [facility] for further evaluation and treatment. The patient was hypotensive yesterday. The patient also had a femoral line, which was placed at [facility]. White count here on admission was 5.4, hemoglobin was 6.7, currently 7.7, platelets of 218. Bilirubin was 9.0, AST of 1172, ALT of 234, alkaline phosphatase of 142, ammonia of 40, albumin of 1.9. Creatinine was 1.8. Procalcitonin of 4.43. Lactate of 2.2. Troponin was normal. Potassium of 3.4. SARS-COVID negative. Hepatitis profile negative. Ultrasound of the abdomen showed hepatic steatosis, hydropic gallbladder with gallbladder sludge. Chest x-ray today showed no acute abnormality. The patient was started on Zosyn. PAST MEDICAL HISTORY: Hypertension, GERD, GI bleed, gastritis, peptic ulcer disease, pancreatitis, anxiety, depression, addictions. PAST SURGICAL HISTORY: . FAMILY HISTORY: Unknown. SOCIAL HISTORY: Smoker, 1 pack a day. Heavy alcohol use. No drugs. , has 2 children. CURRENT MEDICATIONS: Zosyn, lorazepam, Zofran, Compazine, sodium chloride, fentanyl, lactulose, bisacodyl, pantoprazole, octreotide, magnesium sulfate, albumin, multivitamin, thiamine, lorazepam, vitamin K. ALLERGIES: No known drug allergies. REVIEW OF SYSTEMS: Unable to obtain due to mental status changes. PHYSICAL EXAMINATION: VITAL SIGNS: Temperature 100.1, pulse 86, respiratory rate 23, blood pressure 116/55, oxygen saturation 95% on room air. GENERAL: Somnolent with periods of agitation and restlessness, appears comfortable. HEENT: Normocephalic, atraumatic. Edentulous. Sclerae icteric. NECK: Supple. LUNGS: Clear bilaterally. HEART: S1, S2. No murmurs. ABDOMEN: Obese, soft. EXTREMITIES: No edema. No cyanosis. GENITOURINARY: Wood in place. Fecal tube in place. Femoral line in place. DERMATOLOGIC: No generalized rash. Multiple tattoos. CENTRAL NERVOUS SYSTEM: Somnolent, unable to assess, but does move all 4 extremities per discussion with staff. PSYCHIATRIC: Unable to assess. LABORATORY DATA: WBC 4.3, hemoglobin 7.7, hematocrit 23.6, platelets 204. Sodium 142, potassium 3.4, chloride 105, bicarbonate 24, BUN 14, creatinine 1.2, glucose 86. Lactate 2.2, bilirubin 9.0, AST 540, ALT 158, alkaline phosphatase 140. Ammonia 35. Troponin normal. Albumin 1.6. SARS-COVID negative and hepatitis profile negative. INR 2.4. IMAGIN. Ultrasound of the abdomen; hepatic steatosis, hydropic gallbladder with gallbladder sludge. 2. CT chest, abdomen and pelvis at [facility] revealed severe hepatic steatosis and cholelithiasis with hydropic gallbladder and gastric bypass. 3. CT head, no acute hemorrhage. IMPRESSION: 1. Portosystemic encephalopathy 2. Acute liver failure, likely from alcoholism with hyperbilirubinemia. 3. Acute renal failure. 4. Anemia. 5. Coagulopathy. 6. Protein-calorie malnutrition. 7. History of gastroesophageal reflux disease, GI bleed, gastritis, pancreatitis, peptic ulcer disease. 8. History of anxiety and depression. 9. History of smoking and heavy ETOH dependence. 10. Hydropic gallbladder with hepatic steatosis. 11. Femoral line in place. RECOMMENDATIONS: 1. Continue Zosyn for now 2. Obtain blood cultures from femoral line.Agree with discontinuing femoral line. 3. Follow up labs and cultures. 4. Maintain aspiration precaution. 5. Continue supportive care. 6. Critically ill. 7. Prognosis poor 8. GI team input noted CCT time 45 minutes. Thank you, Dr. Jones for consulting Infectious Disease to participate in this patient's care. If you have any questions, do not hesitate to contact me. DAGMAR MALCOLM MD DR: BRITNEY/pablo JOB#: [id number] / [id number] SARAI
[2020-11-19] MEDS ORDERED: CALCIUM GLUCONATE 1,000 MG in IV NORMAL SALINE 100ML 100 ML IV ONE ×2 (14:00→15:00)
--- NOTE | 2020-11-19 15:05 | PDOC2 ---
CONSULT Date of Consult Date of Consult DATE: 11/19/20 TIME: 15:05 Reason for Consult Reason for Consult: AMS Identification/Chief Complaint Chief Complaint AMS History of Present Illness Reason for Visit: This patient is 40-year-old woman with past medical history of multiple medical problems with morbid obesity, status post bypass, alcohol use, hypertension, pancreatitis, chronic back pain, presented with the altered mental status symptom onset over 1 week prior to presentation. Patien Patient is being currently treated for multiple medical problems with metabolic encephalopathy, liver, alcoholic liver disease, renal failure. Past Medical History Cardiovascular: HTN GI: GERD, GI bleed, Gastritis, Peptic Ulcer disease Psych: Anxiety, Addictions, Depression Past Surgical History Past Surgical History: Family History Family History: Family History Unknown Social History 1 pack per day ALCOHOL: heavy Drugs: None Current Medications Current Medications Current Medications Lorazepam (Ativan Inj) 0.5 mg PRN Q6HRS PRN IVP ANXIETY / AGITATION Last administered on 11/18/20at 18:10; Start 11/17/20 at 16:15; Stop 11/19/20 at 01:14; Status DC Ondansetron HCl (Zofran) 4 mg PRN Q6HRS PRN IVP NAUSEA/VOMITING; Start 11/17/20 at 16:15 Prochlorperazine Edisylate (Compazine) 5 mg PRN Q6HRS PRN IVP NAUSEA/VOMITING; Start 11/17/20 at 16:15 Info (Icu Electrolyte Protocol) 1 ea DAILY MC ; Start 11/18/20 at 09:00 Sodium Chloride (Normal Saline Flush) 3 ml QSHIFT PRN IV AFTER MEDS AND BLOOD D RAWS; Start 11/17/20 at 16:15 Sodium Chloride 1,000 ml @ 1,000 mls/hr Q1H IV Last administered on 11/17/20at 17:50; Start 11/17/20 at 16:15; Stop 11/17/20 at 17:14; Status DC Fentanyl Citrate (Fentanyl 2ml Vial) 25 mcg PRN Q1HR PRN IV SEVERE PAIN 7-10 L ast administered on 11/19/20at 09:43; Start 11/17/20 at 16:15 Lactulose (Lactulose) 20 gm PRN Q12HR PRN PO CONSTIPATION; Start 11/17/20 at 16:15; Stop 11/17/20 at 17:40; Status DC Bisacodyl (Dulcolax Supp) 10 mg PRN DAILY PRN [place] CONSTIPATION; Start 11/17/20 at 16:15 Pantoprazole Sodium (PROTONIX VIAL for IV PUSH) 40 mg DAILYAC IVP ; Start 11/18/20 at 07:30; Stop 11/17/20 at 17:40; Status DC Lactulose (LACTULOSE 300ML for RECTAL) 200 gm Q6HRS IL ; Start 11/17/20 at 18:00; Stop 11/17/20 at 17:40; Status DC Sodium Bicarbonate 75 meq/Sodium Chloride 1,075 ml @ 125 mls/hr Q8H36M IV Last administered on 11/19/20at 05:44; Start 11/17/20 at 17:00; Stop 11/19/20 at 09:16; Status DC Pantoprazole Sodium (PROTONIX VIAL for IV PUSH) 80 mg 1X ONCE IVP Last adminis tered on 11/17/20at 17:50; Start 11/17/20 at 18:00; Stop 11/17/20 at 18:01; Status DC Pantoprazole Sodium 80 mg/ Sodium Chloride 100 ml @ 10 mls/hr Q10H IV Last administered on 11/19/20at 04:12; Start 11/17/20 at 18:00 Octreotide Acetate 500 mcg/ Sodium Chloride 101 ml @ 10.1 mls/hr CONT PRN IV SEE I/O RECORD Last administered on 11/19/20at 13:00; Start 11/17/20 at 17:30 Lactulose (LACTULOSE 300ML for RECTAL) 200 gm Q2HR IL Last administered on 11/19/20at 12:00; Start 11/17/20 at 18:00 Magnesium Sulfate 50 ml @ 25 mls/hr 1X ONCE IV Last administered on 11/17/20at 18:34; Start 11/17/20 at 18:30; Stop 11/17/20 at 20:29; Status DC Albumin Human 500 ml @ 125 mls/hr PRN DAILY PRN IV HYPOTENSION Last administered on 11/18/20at 01:47; Start 11/18/20 at 00:15 Multivitamins 10 ml/Thiamine HCl 100 mg/Folic Acid 1 mg/Sodium Chloride 1,011.2 ml @ 100 mls/ hr DAILY IV Last administered on 11/18/20at 09:23; Start 11/18/20 at 09:00; Stop 11/22/20 at 19:07 Thiamine HCl 100 mg/Dextrose 51 ml @ 100 mls/hr DAILY IV ; Start 11/23/20 at 09:00; Stop 11/27/20 at 09:31 Lorazepam (Ativan) 2 mg Q6H PO ; Start 11/18/20 at 08:00; Stop 11/19/20 at 01:14; Status DC Lactulose (Lactulose) 30 gm PRN DAILY PRN PO GI SYMPTOMS; Start 11/18/20 at 08:00; Status UNV Lactulose (Lactulose) 30 gm PRN DAILY PRN PO GI SYMPTOMS; Start 11/18/20 at 08:30; Status UNV Piperacillin Sod/ Tazobactam Sod (Zosyn Per Pharmacy) 1 each PRN DAILY PRN MC SEE COMMENTS; Start 11/18/20 at 12:00 Piperacillin Sod/ Tazobactam Sod 3.375 gm/Sodium Chloride 50 ml @ 100 mls/hr Q6HRS IV Last administered on 11/19/20at 13:57; Start 11/18/20 at 12:00 Phytonadione (Vitamin K Ampule) 5 mg 1X ONCE SQ Last administered on 11/18/20at 12:50; Start 11/18/20 at 12:15; Stop 11/18/20 at 12:16; Status DC Lorazepam (Ativan Inj) 2 mg PRN Q1HR PRN IV For CIWA 8-14 Last administered on 11/19/20at 09:42; Start 11/18/20 at 18:15 Potassium Chloride/Water 100 ml @ 100 mls/hr Q1H IV Last administered on 11/19/20at 09:30; Start 11/19/20 at 08:30; Stop 11/19/20 at 10:29; Status DC Magnesium Sulfate 50 ml @ 25 mls/hr PRN DAILY PRN IV for Mag < 1.7 on am labs; Start 11/19/20 at 08:30 Albumin Human 100 ml @ 100 mls/hr TID IV Last administered on 11/19/20at 12:59; Start 11/19/20 at 10:00; Stop 11/20/20 at 21:59 Lorazepam (Ativan Inj) 4 mg PRN Q1HR PRN IV For CIWA 15 or greater; Start 11/19/20 at 10:00 Dexmedetomidine HCl 400 mcg/ Sodium Chloride 100 ml @ 0 mls/hr CONT PRN IV PER PROTOCOL Last administered on 11/19/20at 12:59; Start 11/19/20 at 10:00 Sodium Chloride 500 ml @ 500 mls/hr 1X PRN PRN IV SEE COMMENTS; Start 11/19/20 at 10:00 Atropine Sulfate (ATROPINE 0.5mg SYRINGE) 0.5 mg PRN Q5MIN PRN IV SEE COMMENTS; Start 11/19/20 at 10:00 Calcium Gluconate 1000 mg/Sodium Chloride 110 ml @ 220 mls/hr 1X ONCE IV ; Start 11/19/20 at 14:00; Stop 11/19/20 at 14:29; Status UNV Calcium Gluconate 1000 mg/Sodium Chloride 110 ml @ 220 mls/hr 1X ONCE IV Last administered on 11/19/20at 14:29; Start 11/19/20 at 15:00; Stop 11/19/20 at 15:29 Allergies Allergies: Coded Allergies: No Known Drug Allergies (Unverified , 11/17/20) Physical Exam Physical Exam HEENT: Normocephalic and atraumatic. NECK: Supple without bruit Respiratory: Clear to auscultation bilaterally Heart: Regular rate and rhythm, S1S2 normal NEUROLOGIC: Mental status sleepy no meningeal signs Cranial nerve equally reactive pupils No facial asymmetry. Palate elevates and tongue protrudes in midline. Reflexes are 1+ with flexor plantar responses. Coordination not able Strength able to move all exts to stimuli Gait in bed. Review of symptoms limited due to current medical condition. Vitals VITALS Vital Signs Date Time Temp Pulse Resp B/P (MAP) Pulse Ox O2 Delivery O2 Flow Rate FiO2 11/19/20 14:00 70 23 92/56 (68) 95 Room Air 11/19/20 12:00 97.9 97.9 Labs Labs Laboratory Tests Test 11/17/20 18:00 11/17/20 18:10 11/17/20 23:15 11/18/20 05:10 Hemoglobin 6.7 g/dL (12.0-15.5) 7.0 g/dL (12.0-15.5) 6.9 g/dL (12.0-15.5) Hematocrit 20.8 % (36.0-47.0) 21.9 % (36.0-47.0) 21.3 % (36.0-47.0) Mean Corpuscular Hemoglobin Concent 32 g/dL (31-37) 32 g/dL (31-37) 32 g/dL (31-37) Creatine Kinase 64 U/L (26-192) Hepatitis A IgM Antibody Nonreactive (Nonreactive) Hepatitis B Surface Antigen Nonreactive (Nonreactive) Hepatitis B Core IgM Antibody Nonreactive (Nonreactive) Hepatitis C IgG Antibody Nonreactive (Nonreactive) SARS-CoV-2 RNA (KARLA) Negative (Negative) SARS-CoV-2 Antigen (Rapid) Negative (NEGATIVE) White Blood Count 5.4 x10^3/uL (4.0-11.0) 4.0 x10^3/uL (4.0-11.0) Red Blood Count 2.41 x10^6/uL (3.50-5.40) 2.35 x10^6/uL (3.50-5.40) Mean Corpuscular Volume 91 fL (79-100) 91 fL (79-100) Mean Corpuscular Hemoglobin 29 pg (25-35) 29 pg (25-35) Red Cell Distribution Width 20.2 % (11.5-14.5) 19.2 % (11.5-14.5) Platelet Count 218 x10^3/uL (140-400) 187 x10^3/uL (140-400) Neutrophils (%) (Auto) 73 % (31-73) Lymphocytes (%) (Auto) 15 % (24-48) Monocytes (%) (Auto) 10 % (0-9) Eosinophils (%) (Auto) 1 % (0-3) Basophils (%) (Auto) 0 % (0-3) Neutrophils # (Auto) 3.0 x10^3/uL (1.8-7.7) Lymphocytes # (Auto) 0.6 x10^3/uL (1.0-4.8) Monocytes # (Auto) 0.4 x10^3/uL (0.0-1.1) Eosinophils # (Auto) 0.0 x10^3/uL (0.0-0.7) Basophils # (Auto) 0.0 x10^3/uL (0.0-0.2) Prothrombin Time 28.1 SEC (11.7-14.0) Prothromb Time International Ratio 2.6 (0.8-1.1) Sodium Level 137 mmol/L (136-145) Potassium Level 4.0 mmol/L (3.5-5.1) Chloride Level 101 mmol/L (98-107) Carbon Dioxide Level 22 mmol/L (21-32) Anion Gap 14 (6-14) Blood Urea Nitrogen 10 mg/dL (7-20) Creatinine 1.8 mg/dL (0.6-1.0) Estimated GFR (Cockcroft-Gault) 31.0 BUN/Creatinine Ratio 6 (6-20) Glucose Level 73 mg/dL (70-99) Calcium Level 7.0 mg/dL (8.5-10.1) Total Bilirubin 9.0 mg/dL (0.2-1.0) Aspartate Amino Transf (AST/SGOT) 1172 U/L (15-37) Alanine Aminotransferase (ALT/SGPT) 234 U/L (14-59) Alkaline Phosphatase 142 U/L (46-116) Total Protein 4.7 g/dL (6.4-8.2) Albumin 1.9 g/dL (3.4-5.0) Albumin/Globulin Ratio 0.7 (1.0-1.7) Test 11/18/20 13:40 11/18/20 17:57 11/19/20 06:05 11/19/20 09:00 Hemoglobin 8.1 g/dL (12.0-15.5) 7.7 g/dL (12.0-15.5) Hematocrit 24.8 % (36.0-47.0) 23.6 % (36.0-47.0) Mean Corpuscular Hemoglobin Concent 33 g/dL (31-37) 33 g/dL (31-37) Lactic Acid Level 2.1 mmol/L (0.4-2.0) 2.2 mmol/L (0.4-2.0) Ammonia 40 mcmol/L (11-34) 35 mcmol/L (11-34) Troponin I Quantitative 0.050 ng/mL (0.000-0.055) Procalcitonin 4.43 ng/mL (0.00-0.10) White Blood Count 4.3 x10^3/uL (4.0-11.0) Red Blood Count 2.64 x10^6/uL (3.50-5.40) Mean Corpuscular Volume 89 fL (79-100) Mean Corpuscular Hemoglobin 29 pg (25-35) Red Cell Distribution Width 19.1 % (11.5-14.5) Platelet Count 204 x10^3/uL (140-400) Neutrophils (%) (Auto) 68 % (31-73) Lymphocytes (%) (Auto) 15 % (24-48) Monocytes (%) (Auto) 16 % (0-9) Eosinophils (%) (Auto) 1 % (0-3) Basophils (%) (Auto) 1 % (0-3) Neutrophils # (Auto) 2.9 x10^3/uL (1.8-7.7) Lymphocytes # (Auto) 0.6 x10^3/uL (1.0-4.8) Monocytes # (Auto) 0.7 x10^3/uL (0.0-1.1) Eosinophils # (Auto) 0.0 x10^3/uL (0.0-0.7) Basophils # (Auto) 0.0 x10^3/uL (0.0-0.2) Prothrombin Time 25.8 SEC (11.7-14.0) Prothromb Time International Ratio 2.4 (0.8-1.1) Magnesium Level 1.8 mg/dL (1.8-2.4) Sodium Level 142 mmol/L (136-145) Potassium Level 3.4 mmol/L (3.5-5.1) Chloride Level 105 mmol/L (98-107) Carbon Dioxide Level 24 mmol/L (21-32) Anion Gap 13 (6-14) Blood Urea Nitrogen 14 mg/dL (7-20) Creatinine 1.2 mg/dL (0.6-1.0) Estimated GFR (Cockcroft-Gault) 49.5 BUN/Creatinine Ratio 12 (6-20) Glucose Level 86 mg/dL (70-99) Calcium Level 7.5 mg/dL (8.5-10.1) Total Bilirubin 9.0 mg/dL (0.2-1.0) Aspartate Amino Transf (AST/SGOT) 540 U/L (15-37) Alanine Aminotransferase (ALT/SGPT) 158 U/L (14-59) Alkaline Phosphatase 140 U/L (46-116) Total Protein 4.5 g/dL (6.4-8.2) Albumin 1.6 g/dL (3.4-5.0) Albumin/Globulin Ratio 0.6 (1.0-1.7) Test 11/19/20 12:55 Ionized Calcium 1.05 mmol/L (1.13-1.32) Laboratory Tests Test 11/18/20 17:57 11/19/20 06:05 11/19/20 09:00 11/19/20 12:55 Lactic Acid Level 2.2 mmol/L (0.4-2.0) White Blood Count 4.3 x10^3/uL (4.0-11.0) Red Blood Count 2.64 x10^6/uL (3.50-5.40) Hemoglobin 7.7 g/dL (12.0-15.5) Hematocrit 23.6 % (36.0-47.0) Mean Corpuscular Volume 89 fL (79-100) Mean Corpuscular Hemoglobin 29 pg (25-35) Mean Corpuscular Hemoglobin Concent 33 g/dL (31-37) Red Cell Distribution Width 19.1 % (11.5-14.5) Platelet Count 204 x10^3/uL (140-400) Neutrophils (%) (Auto) 68 % (31-73) Lymphocytes (%) (Auto) 15 % (24-48) Monocytes (%) (Auto) 16 % (0-9) Eosinophils (%) (Auto) 1 % (0-3) Basophils (%) (Auto) 1 % (0-3) Neutrophils # (Auto) 2.9 x10^3/uL (1.8-7.7) Lymphocytes # (Auto) 0.6 x10^3/uL (1.0-4.8) Monocytes # (Auto) 0.7 x10^3/uL (0.0-1.1) Eosinophils # (Auto) 0.0 x10^3/uL (0.0-0.7) Basophils # (Auto) 0.0 x10^3/uL (0.0-0.2) Prothrombin Time 25.8 SEC (11.7-14.0) Prothromb Time International Ratio 2.4 (0.8-1.1) Magnesium Level 1.8 mg/dL (1.8-2.4) Ammonia 35 mcmol/L (11-34) Sodium Level 142 mmol/L (136-145) Potassium Level 3.4 mmol/L (3.5-5.1) Chloride Level 105 mmol/L (98-107) Carbon Dioxide Level 24 mmol/L (21-32) Anion Gap 13 (6-14) Blood Urea Nitrogen 14 mg/dL (7-20) Creatinine 1.2 mg/dL (0.6-1.0) Estimated GFR (Cockcroft-Gault) 49.5 BUN/Creatinine Ratio 12 (6-20) Glucose Level 86 mg/dL (70-99) Calcium Level 7.5 mg/dL (8.5-10.1) Total Bilirubin 9.0 mg/dL (0.2-1.0) Aspartate Amino Transf (AST/SGOT) 540 U/L (15-37) Alanine Aminotransferase (ALT/SGPT) 158 U/L (14-59) Alkaline Phosphatase 140 U/L (46-116) Total Protein 4.5 g/dL (6.4-8.2) Albumin 1.6 g/dL (3.4-5.0) Albumin/Globulin Ratio 0.6 (1.0-1.7) Ionized Calcium 1.05 mmol/L (1.13-1.32) Assessment/Plan Assessment/Plan This patient is 40-year-old woman with past medical history of multiple medical problems with morbid obesity, status post bypass, alcohol use, hypertension, pancreatitis, chronic back pain, presented with the altered mental status symptom onset over 1 week prior to presentation. Patien Patient is being currently treated for multiple medical problems with metabolic encephalopathy, liver, alcoholic liver disease, renal failure. With multiple medical problems with metabolic encephalopathy with currently being treated for liver, liver disease due to alcohol, anemia, acute renal failure, liver failure, hepatitis, hyponatremia, continue treat and monitor. Patient had a CT scan done brain did not show any evidence of acute intracranial etiology. MRI of brain cannot be done due to current medical condition. Continue close monitoring, further workup Thank you for allowing me to take part in this patient's care. Please not hesitate to contact me with questions. Transcribed using dictation device. The dictation could contain irregularities inherent in the voice to text conversion software, which may not be detected during the document review process. Please contact our office in case of any confusion or for any clarification, as needed. JENNIFER ALBARRAN MD Nov 19, 2020 15:05
[2020-11-20] VITALS (18 sets, daily range): BP systolic 85–159; BP diastolic 54–89
[2020-11-20] MEDS: PANTOPRAZOLE SODIUM IV DRIP 80 MG in IV NORMAL SALINE 100ML 100 ML IV SCH ×2 (00:36→13:21)
[2020-11-20] MEDS: OCTREOTIDE 500 MCG in IV NORMAL SALINE 100ML 100 ML IV PRN ×3 (00:36→23:54)
[2020-11-20] MEDS: PIPERACILLIN/TAZOBACTAM 3.375 GM in IV NORMAL SALINE 50ML 50 ML IV SCH ×4 (00:36→18:49)
[2020-11-20] MEDS: LACTULOSE for RECTAL 200 GM/300 ML SOLUTION. PR SCH ×10 (02:00→18:00)
[2020-11-20] MEDS: DEXMEDETOMIDINE 400 MCG in IV NORMAL SALINE 100ML 96 ML IV PRN ×2 (04:29→23:53)
[2020-11-20 05:00] LABS: BASO % 0 % (0-3); EOS # 0.1 x10^3/uL (0.0-0.7); EOS % 2 % (0-3); HEMATOCRIT 21.9 % (36.0-47.0); HEMOGLOBIN 7.1 g/dL (12.0-15.5); LYMPH # 0.6 x10^3/uL (1.0-4.8); LYMPH % 17 % (24-48); MEAN CORPUSCULAR HEMOGLOBIN 29 pg (25-35); MEAN CORPUSCULAR HGB CONC 33 g/dL (31-37); MEAN CORPUSCULAR VOLUME 90 fL (79-100); MONO # 0.4 x10^3/uL (0.0-1.1); MONO % 11 % (0-9); NEUT # 2.6 x10^3/uL (1.8-7.7); NEUT % 70 % (31-73); PLATELET COUNT 178 x10^3/uL (140-400); RED BLOOD COUNT 2.44 x10^6/uL (3.50-5.40); RED CELL DISTRIBUTION WIDTH 19.3 % (11.5-14.5); WHITE BLOOD COUNT 3.7 x10^3/uL (4.0-11.0)
[2020-11-20 05:09] LABS: PROTHROMBIN TIME PATIENT 24.1 SEC (11.7-14.0)
[2020-11-20 05:13] LABS: ALBUMIN 2.5 g/dL (3.4-5.0); CALCIUM 7.8 mg/dL (8.5-10.1); CREATININE 0.9 mg/dL (0.6-1.0); PHOSPHORUS 2.6 mg/dL (2.6-4.7); POTASSIUM 3.2 mmol/L (3.5-5.1); TOTAL BILIRUBIN 7.8 mg/dL (0.2-1.0); TOTAL PROTEIN 4.9 g/dL (6.4-8.2)
--- NOTE | 2020-11-20 08:48 | PDOC ---
Infectious Disease Note Subjective: Subjective Patient was hypothermic last night requiring Juan hugger T-max 100.1 On 3 L O2 by nasal cannula Sedated Vital Signs: Vital Signs Vital Signs Date Time Temp Pulse Resp B/P (MAP) Pulse Ox O2 Delivery O2 Flow Rate FiO2 11/20/20 06:00 62 19 120/82 (95) 96 Nasal Cannula 3.0 11/20/20 04:00 97.5 97.5 Physical Exam: PHYSICAL EXAM GENERAL: Somnolent, appears comfortable on nasal O2 HEENT: Normocephalic, atraumatic. Sclerae icteric. NECK: Supple. LUNGS: Clear bilaterally. HEART: S1, S2. No murmurs. ABDOMEN: Obese, soft, Bowel sounds present, does not grimace on deep palpation EXTREMITIES: Edema present no cyanosis. GENITOURINARY: Wood in place. Fecal tube in place. Femoral line removed DERMATOLOGIC: No generalized rash. Multiple tattoos. CENTRAL NERVOUS SYSTEM: Somnolent, unable to assess PIVs clean Medications: Inpatient Meds: Medications reviewed. Labs: Lab Laboratory Tests Test 11/19/20 09:00 11/19/20 12:55 11/19/20 14:55 11/20/20 01:57 Sodium Level 142 mmol/L (136-145) Potassium Level 3.4 mmol/L (3.5-5.1) Chloride Level 105 mmol/L (98-107) Carbon Dioxide Level 24 mmol/L (21-32) Anion Gap 13 (6-14) Blood Urea Nitrogen 14 mg/dL (7-20) Creatinine 1.2 mg/dL (0.6-1.0) Estimated GFR (Cockcroft-Gault) 49.5 BUN/Creatinine Ratio 12 (6-20) Glucose Level 86 mg/dL (70-99) Calcium Level 7.5 mg/dL (8.5-10.1) Total Bilirubin 9.0 mg/dL (0.2-1.0) Aspartate Amino Transf (AST/SGOT) 540 U/L (15-37) Alanine Aminotransferase (ALT/SGPT) 158 U/L (14-59) Alkaline Phosphatase 140 U/L (46-116) Total Protein 4.5 g/dL (6.4-8.2) Albumin 1.6 g/dL (3.4-5.0) Albumin/Globulin Ratio 0.6 (1.0-1.7) Ionized Calcium 1.05 mmol/L (1.13-1.32) Free Thyroxine 0.82 ng/dL (0.76-1.46) Glucose (Fingerstick) 99 mg/dL (70-99) Test 11/20/20 04:45 White Blood Count 3.7 x10^3/uL (4.0-11.0) Red Blood Count 2.44 x10^6/uL (3.50-5.40) Hemoglobin 7.1 g/dL (12.0-15.5) Hematocrit 21.9 % (36.0-47.0) Mean Corpuscular Volume 90 fL (79-100) Mean Corpuscular Hemoglobin 29 pg (25-35) Mean Corpuscular Hemoglobin Concent 33 g/dL (31-37) Red Cell Distribution Width 19.3 % (11.5-14.5) Platelet Count 178 x10^3/uL (140-400) Neutrophils (%) (Auto) 70 % (31-73) Lymphocytes (%) (Auto) 17 % (24-48) Monocytes (%) (Auto) 11 % (0-9) Eosinophils (%) (Auto) 2 % (0-3) Basophils (%) (Auto) 0 % (0-3) Neutrophils # (Auto) 2.6 x10^3/uL (1.8-7.7) Lymphocytes # (Auto) 0.6 x10^3/uL (1.0-4.8) Monocytes # (Auto) 0.4 x10^3/uL (0.0-1.1) Eosinophils # (Auto) 0.1 x10^3/uL (0.0-0.7) Basophils # (Auto) 0.0 x10^3/uL (0.0-0.2) Prothrombin Time 24.1 SEC (11.7-14.0) Prothromb Time International Ratio 2.2 (0.8-1.1) Sodium Level 146 mmol/L (136-145) Potassium Level 3.2 mmol/L (3.5-5.1) Chloride Level 110 mmol/L (98-107) Carbon Dioxide Level 25 mmol/L (21-32) Anion Gap 11 (6-14) Blood Urea Nitrogen 13 mg/dL (7-20) Creatinine 0.9 mg/dL (0.6-1.0) Estimated GFR (Cockcroft-Gault) 69.0 BUN/Creatinine Ratio 14 (6-20) Glucose Level 105 mg/dL (70-99) Calcium Level 7.8 mg/dL (8.5-10.1) Phosphorus Level 2.6 mg/dL (2.6-4.7) Total Bilirubin 7.8 mg/dL (0.2-1.0) Aspartate Amino Transf (AST/SGOT) 271 U/L (15-37) Alanine Aminotransferase (ALT/SGPT) 99 U/L (14-59) Alkaline Phosphatase 122 U/L (46-116) Total Protein 4.9 g/dL (6.4-8.2) Albumin 2.5 g/dL (3.4-5.0) Albumin/Globulin Ratio 1.0 (1.0-1.7) Objective: Assessment: Sepsis Hypothermia Portosystemic encephalopathy Acute liver failure, likely from alcoholism with hyperbilirubinemia. Acute renal failure. Anemia. Coagulopathy. Protein-calorie malnutrition. History of gastroesophageal reflux disease, GI bleed, gastritis, pancreatitis, peptic ulcer disease. History of anxiety and depression. Hydropic gallbladder with hepatic steatosis. Femoral line removed Diarrhea on lactulose Plan: Plan of Care 1. Continue Zosyn for now. 2. Femoral line removed . 3. Follow up labs and cultures. 4. Continue supportive care. 5. Monitor BC 6. Maintain aspiration precaution. 7. Continue supportive care. 8. Critically ill 9. Prognosis poor 10. GI team input noted,Gen surgery following Discussed with nursing team DAGMAR MALCOLM MD Nov 20, 2020 08:48
[2020-11-20] MEDS: ELECTROLYTE (ICU) PROTOCOL. MC SCH (09:00)
--- NOTE | 2020-11-20 09:17 | PDOC ---
DATE OF SERVICE DATE: 11/20/20 TIME: 09:17 SUBJECTIVE ROS Patient was hypothermic last night requiring Juan hugger On 3 L O2 by nasal cannula OBJECTIVE Vital Signs Vital Signs Date Time Temp Pulse Resp B/P (MAP) Pulse Ox O2 Delivery O2 Flow Rate FiO2 11/20/20 06:00 62 19 120/82 (95) 96 Nasal Cannula 3.0 11/20/20 04:00 97.5 97.5 I & 0 Intake and Output 11/20/20 07:00 Intake Total 1639.1 ml Output Total 3875 ml Balance -2235.9 ml Intake IV Total 1439.1 ml Blood Product IV Normal Saline Flush 200 ml Output Urine Total 875 ml Stool Total 3000 ml PHYSICAL EXAM Physical Exam GENERAL: Somnolent, doesnt open eyes , Morbidly obese HEENT: Normocephalic, atraumatic. Sclerae icteric.On o2 by NC NECK: Supple. LUNGS Decreased at bases, .Non labored HEART: S1, S2. No murmurs. ABDOMEN: Obese, soft, Bowel sounds present, EXTREMITIES: Edema present no cyanosis. GENITOURINARY: Wood in place. Fecal tube in place. DERMATOLOGIC: No generalized rash. Multiple tattoos. CENTRAL NERVOUS SYSTEM: Somnolent, moving all extremities DIAGNOSIS/ASSESSMENT Assessment & Plan EARL/possible ATN . Resolved with IVF , Non Oliguric currently , supportive care, maintain hydration, Strict I/O HypoKalemia- replace as indicated Metabolic acidosis POA - resolved Protein-calorie malnutrition./Severe hypoalbuminemia: Anemia: Defer to GI to evaluate and treat, Sepsis Hypothermia Acute liver failure, likely from alcoholism with hyperbilirubinemia. GS recommendations --referral to transplant home insurance agent when stable;hydrops GB--not a surgical candidate, no surgical plans Morbidly obese COMMENT/RELEVANT DATA Meds Current Medications Medications (Trade) Dose Ordered Sig/Saud Start Time Stop Time Status Last Admin Dose Admin Albumin Human 100 ml @ 100 mls/hr TID 11/19/20 10:00 11/20/20 21:59 11/19/20 22:08 100 MLS/HR Atropine Sulfate (ATROPINE 0.5mg SYRINGE) 0.5 mg PRN Q5MIN PRN 11/19/20 10:00 Bisacodyl (Dulcolax Supp) 10 mg PRN DAILY PRN 11/17/20 16:15 Calcium Gluconate 1000 mg/Sodium Chloride 110 ml @ 220 mls/hr 1X ONCE 11/19/20 15:00 11/19/20 15:29 DC 11/19/20 14:29 220 MLS/HR Dexmedetomidine HCl 400 mcg/ Sodium Chloride 100 ml @ 0 mls/hr CONT PRN 11/19/20 10:00 11/20/20 04:29 5 MLS/HR Fentanyl Citrate (Fentanyl 2ml Vial) 25 mcg PRN Q1HR PRN 11/17/20 16:15 11/19/20 09:43 25 MCG Info ([facility] Electrolyte Protocol) 1 ea DAILY 11/18/20 09:00 Lactulose (LACTULOSE 300ML for RECTAL) 200 gm Q2HR 11/17/20 18:00 11/20/20 02:00 200 GM Lactulose (Lactulose) 30 gm PRN DAILY PRN 11/18/20 08:30 UNV Lorazepam (Ativan Inj) 4 mg PRN Q1HR PRN 11/19/20 10:00 Lorazepam (Ativan) 2 mg Q6H 11/18/20 08:00 11/19/20 01:14 DC Magnesium Sulfate 50 ml @ 25 mls/hr PRN DAILY PRN 11/19/20 08:30 Multivitamins 10 ml/Thiamine HCl 100 mg/Folic Acid 1 mg/Sodium Chloride 1,011.2 ml @ 100 mls/ hr DAILY 11/18/20 09:00 11/22/20 19:07 11/19/20 22:08 100 MLS/HR Octreotide Acetate 500 mcg/ Sodium Chloride 101 ml @ 10.1 mls/hr CONT PRN 11/17/20 17:30 11/20/20 00:36 10.1 MLS/HR Ondansetron HCl (Zofran) 4 mg PRN Q6HRS PRN 11/17/20 16:15 Pantoprazole Sodium (PROTONIX VIAL for IV PUSH) 80 mg 1X ONCE 11/17/20 18:00 11/17/20 18:01 DC 11/17/20 17:50 80 MG Pantoprazole Sodium 80 mg/ Sodium Chloride 100 ml @ 10 mls/hr Q10H 11/17/20 18:00 11/20/20 00:36 10 MLS/HR Phytonadione (Vitamin K Ampule) 5 mg 1X ONCE 11/18/20 12:15 11/18/20 12:16 DC 11/18/20 12:50 5 MG Piperacillin Sod/ Tazobactam Sod (Zosyn Per Pharmacy) 1 each PRN DAILY PRN 11/18/20 12:00 Piperacillin Sod/ Tazobactam Sod 3.375 gm/Sodium Chloride 50 ml @ 100 mls/hr Q6HRS 11/18/20 12:00 11/20/20 05:56 100 MLS/HR Potassium Chloride/Water 100 ml @ 100 mls/hr Q1H 11/19/20 08:30 11/19/20 10:29 DC 11/19/20 09:30 100 MLS/HR Prochlorperazine Edisylate (Compazine) 5 mg PRN Q6HRS PRN 11/17/20 16:15 Sodium Bicarbonate 75 meq/Sodium Chloride 1,075 ml @ 125 mls/hr Q8H36M 11/17/20 17:00 11/19/20 09:16 DC 11/19/20 05:44 125 MLS/HR Sodium Chloride 500 ml @ 500 mls/hr 1X PRN PRN 11/19/20 10:00 Sodium Chloride (Normal Saline Flush) 3 ml QSHIFT PRN 11/17/20 16:15 Thiamine HCl 100 mg/Dextrose 51 ml @ 100 mls/hr DAILY 11/23/20 09:00 11/27/20 09:31 Lab Laboratory Tests Test 11/19/20 12:55 11/19/20 14:55 11/20/20 01:57 11/20/20 04:45 Ionized Calcium 1.05 mmol/L (1.13-1.32) Free Thyroxine 0.82 ng/dL (0.76-1.46) Glucose (Fingerstick) 99 mg/dL (70-99) White Blood Count 3.7 x10^3/uL (4.0-11.0) Red Blood Count 2.44 x10^6/uL (3.50-5.40) Hemoglobin 7.1 g/dL (12.0-15.5) Hematocrit 21.9 % (36.0-47.0) Mean Corpuscular Volume 90 fL (79-100) Mean Corpuscular Hemoglobin 29 pg (25-35) Mean Corpuscular Hemoglobin Concent 33 g/dL (31-37) Red Cell Distribution Width 19.3 % (11.5-14.5) Platelet Count 178 x10^3/uL (140-400) Neutrophils (%) (Auto) 70 % (31-73) Lymphocytes (%) (Auto) 17 % (24-48) Monocytes (%) (Auto) 11 % (0-9) Eosinophils (%) (Auto) 2 % (0-3) Basophils (%) (Auto) 0 % (0-3) Neutrophils # (Auto) 2.6 x10^3/uL (1.8-7.7) Lymphocytes # (Auto) 0.6 x10^3/uL (1.0-4.8) Monocytes # (Auto) 0.4 x10^3/uL (0.0-1.1) Eosinophils # (Auto) 0.1 x10^3/uL (0.0-0.7) Basophils # (Auto) 0.0 x10^3/uL (0.0-0.2) Prothrombin Time 24.1 SEC (11.7-14.0) Prothromb Time International Ratio 2.2 (0.8-1.1) Sodium Level 146 mmol/L (136-145) Potassium Level 3.2 mmol/L (3.5-5.1) Chloride Level 110 mmol/L (98-107) Carbon Dioxide Level 25 mmol/L (21-32) Anion Gap 11 (6-14) Blood Urea Nitrogen 13 mg/dL (7-20) Creatinine 0.9 mg/dL (0.6-1.0) Estimated GFR (Cockcroft-Gault) 69.0 BUN/Creatinine Ratio 14 (6-20) Glucose Level 105 mg/dL (70-99) Calcium Level 7.8 mg/dL (8.5-10.1) Phosphorus Level 2.6 mg/dL (2.6-4.7) Total Bilirubin 7.8 mg/dL (0.2-1.0) Aspartate Amino Transf (AST/SGOT) 271 U/L (15-37) Alanine Aminotransferase (ALT/SGPT) 99 U/L (14-59) Alkaline Phosphatase 122 U/L (46-116) Total Protein 4.9 g/dL (6.4-8.2) Albumin 2.5 g/dL (3.4-5.0) Albumin/Globulin Ratio 1.0 (1.0-1.7) Results All relevant outside records, renal labs, imaging studies, telemetry/EKG's were reviewed. Justicifation of Admission Dx: Justifications for Admission: Justification of Admission Dx: Yes Sepsis: Altered Mental Status Altered Mental Status: Altered Mental Status KARMA ARELLANO MD Nov 20, 2020 09:17
--- NOTE | 2020-11-20 09:31 | PDOC2 ---
JAVON BRIDGES MEDICAL STAFFING COORDINATOR 11/20/20 0931: CONSULT Date of Consult Date of Consult DATE: 11/20/20 TIME: 09:25 Reason for Consult Reason for Consult: hydrops GB Referring Physician Referring Physician: Dr Jones Identification/Chief Complaint Chief Complaint AMS Source Source: Caregiver, Chart review History of Present Illness Reason for Visit: Admitted from [facility] ER for AMS, acute liver failure, anemia. From hx gastric ulcers, NSAIDS, alcohol abuse Agitated, on precedex--not responding to questions currently Past Medical History Cardiovascular: HTN GI: GERD, GI bleed, Gastritis, Peptic Ulcer disease Psych: Anxiety, Addictions, Depression Past Surgical History Past Surgical History: , Other (gastric bypass ) Family History Family History: Family History Unknown Social History 1 pack per day ALCOHOL: heavy Drugs: None Current Medications Current Medications Current Medications Lorazepam (Ativan Inj) 0.5 mg PRN Q6HRS PRN IVP ANXIETY / AGITATION Last administered on 11/18/20at 18:10; Start 11/17/20 at 16:15; Stop 11/19/20 at 01:14 ; Status DC Ondansetron HCl (Zofran) 4 mg PRN Q6HRS PRN IVP NAUSEA/VOMITING; Start 11/17/20 at 16:15 Prochlorperazine Edisylate (Compazine) 5 mg PRN Q6HRS PRN IVP NAUSEA/VOMITING, 2ND CHOICE; Start 11/17/20 at 16:15 Info ([facility] Electrolyte Protocol) 1 ea DAILY MC ; Start 11/18/20 at 09:00 Sodium Chloride (Normal Saline Flush) 3 ml QSHIFT PRN IV AFTER MEDS AND BLOOD DRAWS; Start 11/17/20 at 16:15 Sodium Chloride 1,000 ml @ 1,000 mls/hr Q1H IV Last administered on 11/17/20at 17:50; Start 11/17/20 at 16:15; Stop 11/17/20 at 17:14; Status DC Fentanyl Citrate (Fentanyl 2ml Vial) 25 mcg PRN Q1HR PRN IV SEVERE PAIN 7-10 Last administered on 11/19/20at 09:43; Start 11/17/20 at 16:15 Lactulose (Lactulose) 20 gm PRN Q12HR PRN PO CONSTIPATION; Start 11/17/20 at 16 :15; Stop 11/17/20 at 17:40; Status DC Bisacodyl (Dulcolax Supp) 10 mg PRN DAILY PRN GA CONSTIPATION; Start 11/17/20 at 16:15 Pantoprazole Sodium (PROTONIX VIAL for IV PUSH) 40 mg DAILYAC IVP ; Start 11/18/20 at 07:30; Stop 11/17/20 at 17:40; Status DC Lactulose (LACTULOSE 300ML for RECTAL) 200 gm Q6HRS GA ; Start 11/17/20 at 18:00; Stop 11/17/20 at 17:40; Status DC Sodium Bicarbonate 75 meq/Sodium Chloride 1,075 ml @ 125 mls/hr Q8H36M IV Last administered on 11/19/20at 05:44; Start 11/17/20 at 17:00; Stop 11/19/20 at 09:16; Status DC Pantoprazole Sodium (PROTONIX VIAL for IV PUSH) 80 mg 1X ONCE IVP Last administered on 11/17/20at 17:50; Start 11/17/20 at 18:00; Stop 11/17/20 at 18:01; Status DC Pantoprazole Sodium 80 mg/ Sodium Chloride 100 ml @ 10 mls/hr Q10H IV Last administered on 11/20/20at 00:36; Start 11/17/20 at 18:00 Octreotide Acetate 500 mcg/ Sodium Chloride 101 ml @ 10.1 mls/hr CONT PRN IV SEE I/O RECORD Last administered on 11/20/20at 00:36; Start 11/17/20 at 17:30 Lactulose (LACTULOSE 300ML for RECTAL) 200 gm Q2HR GA Last administered on 11/20/20at 02:00; Start 11/17/20 at 18:00 Magnesium Sulfate 50 ml @ 25 mls/hr 1X ONCE IV Last administered on 11/17/20at 18:34; Start 11/17/20 at 18:30; Stop 11/17/20 at 20:29; Status DC Albumin Human 500 ml @ 125 mls/hr PRN DAILY PRN IV HYPOTENSION Last administered on 11/18/20at 01:47; Start 11/18/20 at 00:15 Multivitamins 10 ml/Thiamine HCl 100 mg/Folic Acid 1 mg/Sodium Chloride 1,011.2 ml @ 100 mls/ hr DAILY IV Last administered on 11/19/20at 22:08; Start 11/18/20 at 09:00; Stop 11/22/20 at 19:07 Thiamine HCl 100 mg/Dextrose 51 ml @ 100 mls/hr DAILY IV ; Start 11/23/20 at 09:00; Stop 11/27/20 at 09:31 Lorazepam (Ativan) 2 mg Q6H PO ; Start 11/18/20 at 08:00; Stop 11/19/20 at 01:14; Status DC Lactulose (Lactulose) 30 gm PRN DAILY PRN PO GI SYMPTOMS; Start 11/18/20 at 08:00; Status UNV Lactulose (Lactulose) 30 gm PRN DAILY PRN PO GI SYMPTOMS; Start 11/18/20 at 08:30; Status UNV Piperacillin Sod/ Tazobactam Sod (Zosyn Per Pharmacy) 1 each PRN DAILY PRN MC SEE COMMENTS; Start 11/18/20 at 12:00 Piperacillin Sod/ Tazobactam Sod 3.375 gm/Sodium Chloride 50 ml @ 100 mls/hr Q6HRS IV Last administered on 11/20/20at 05:56; Start 11/18/20 at 12:00 Phytonadione (Vitamin K Ampule) 5 mg 1X ONCE SQ Last administered on 11/18/20at 12:50; Start 11/18/20 at 12:15; Stop 11/18/20 at 12:16; Status DC Lorazepam (Ativan Inj) 2 mg PRN Q1HR PRN IV For CIWA 8-14 Last administered on 11/19/20at 09:42; Start 11/18/20 at 18:15 Potassium Chloride/Water 100 ml @ 100 mls/hr Q1H IV Last administered on 11/19/20at 09:30; Start 11/19/20 at 08:30; Stop 11/19/20 at 10:29; Status DC Magnesium Sulfate 50 ml @ 25 mls/hr PRN DAILY PRN IV for Mag < 1.7 on am labs; Start 11/19/20 at 08:30 Albumin Human 100 ml @ 100 mls/hr TID IV Last administered on 11/19/20at 22:08; Start 11/19/20 at 10:00; Stop 11/20/20 at 21:59 Lorazepam (Ativan Inj) 4 mg PRN Q1HR PRN IV For CIWA 15 or greater; Start 11/19/20 at 10:00 Dexmedetomidine HCl 400 mcg/ Sodium Chloride 100 ml @ 0 mls/hr CONT PRN IV PER PROTOCOL Last administered on 11/20/20at 04:29; Start 11/19/20 at 10:00 Sodium Chloride 500 ml @ 500 mls/hr 1X PRN PRN IV SEE COMMENTS; Start 11/19/20 at 10:00 Atropine Sulfate (ATROPINE 0.5mg SYRINGE) 0.5 mg PRN Q5MIN PRN IV SEE COMMENTS; Start 11/19/20 at 10:00 Calcium Gluconate 1000 mg/Sodium Chloride 110 ml @ 220 mls/hr 1X ONCE IV ; Start 11/19/20 at 14:00; Stop 11/19/20 at 14:29; Status UNV Calcium Gluconate 1000 mg/Sodium Chloride 110 ml @ 220 mls/hr 1X ONCE IV Last administered on 11/19/20at 14:29; Start 11/19/20 at 15:00; Stop 11/19/20 at 15:29; Status DC Allergies Allergies: Coded Allergies: No Known Drug Allergies (Unverified , 11/17/20) ROS Review of System unable to obtain due to mental status Physical Exam Physical Exam rectal tube with stool, no blood noted General: Other (not responsive) HEENT: Atraumatic, Mucous membr. moist/pink Lungs: Other (diminished) Heart: Regular rate, Normal S1, Normal S2 Abdomen: Soft, Other (obese ) Extremities: No cyanosis Skin: No breakdown Vitals VITALS Vital Signs Date Time Temp Pulse Resp B/P (MAP) Pulse Ox O2 Delivery O2 Flow Rate FiO2 11/20/20 06:00 62 19 120/82 (95) 96 Nasal Cannula 3.0 11/20/20 04:00 97.5 97.5 Labs Labs Laboratory Tests Test 11/18/20 13:40 11/18/20 17:57 11/19/20 06:05 11/19/20 09:00 Hemoglobin 8.1 g/dL (12.0-15.5) 7.7 g/dL (12.0-15.5) Hematocrit 24.8 % (36.0-47.0) 23.6 % (36.0-47.0) Mean Corpuscular Hemoglobin Concent 33 g/dL (31-37) 33 g/dL (31-37) Lactic Acid Level 2.1 mmol/L (0.4-2.0) 2.2 mmol/L (0.4-2.0) Ammonia 40 mcmol/L (11-34) 35 mcmol/L (11-34) Troponin I Quantitative 0.050 ng/mL (0.000-0.055) Procalcitonin 4.43 ng/mL (0.00-0.10) White Blood Count 4.3 x10^3/uL (4.0-11.0) Red Blood Count 2.64 x10^6/uL (3.50-5.40) Mean Corpuscular Volume 89 fL (79-100) Mean Corpuscular Hemoglobin 29 pg (25-35) Red Cell Distribution Width 19.1 % (11.5-14.5) Platelet Count 204 x10^3/uL (140-400) Neutrophils (%) (Auto) 68 % (31-73) Lymphocytes (%) (Auto) 15 % (24-48) Monocytes (%) (Auto) 16 % (0-9) Eosinophils (%) (Auto) 1 % (0-3) Basophils (%) (Auto) 1 % (0-3) Neutrophils # (Auto) 2.9 x10^3/uL (1.8-7.7) Lymphocytes # (Auto) 0.6 x10^3/uL (1.0-4.8) Monocytes # (Auto) 0.7 x10^3/uL (0.0-1.1) Eosinophils # (Auto) 0.0 x10^3/uL (0.0-0.7) Basophils # (Auto) 0.0 x10^3/uL (0.0-0.2) Prothrombin Time 25.8 SEC (11.7-14.0) Prothromb Time International Ratio 2.4 (0.8-1.1) Magnesium Level 1.8 mg/dL (1.8-2.4) Sodium Level 142 mmol/L (136-145) Potassium Level 3.4 mmol/L (3.5-5.1) Chloride Level 105 mmol/L (98-107) Carbon Dioxide Level 24 mmol/L (21-32) Anion Gap 13 (6-14) Blood Urea Nitrogen 14 mg/dL (7-20) Creatinine 1.2 mg/dL (0.6-1.0) Estimated GFR (Cockcroft-Gault) 49.5 BUN/Creatinine Ratio 12 (6-20) Glucose Level 86 mg/dL (70-99) Calcium Level 7.5 mg/dL (8.5-10.1) Total Bilirubin 9.0 mg/dL (0.2-1.0) Aspartate Amino Transf (AST/SGOT) 540 U/L (15-37) Alanine Aminotransferase (ALT/SGPT) 158 U/L (14-59) Alkaline Phosphatase 140 U/L (46-116) Total Protein 4.5 g/dL (6.4-8.2) Albumin 1.6 g/dL (3.4-5.0) Albumin/Globulin Ratio 0.6 (1.0-1.7) Test 11/19/20 12:55 11/19/20 14:55 11/20/20 01:57 11/20/20 04:45 Ionized Calcium 1.05 mmol/L (1.13-1.32) Free Thyroxine 0.82 ng/dL (0.76-1.46) Glucose (Fingerstick) 99 mg/dL (70-99) White Blood Count 3.7 x10^3/uL (4.0-11.0) Red Blood Count 2.44 x10^6/uL (3.50-5.40) Hemoglobin 7.1 g/dL (12.0-15.5) Hematocrit 21.9 % (36.0-47.0) Mean Corpuscular Volume 90 fL (79-100) Mean Corpuscular Hemoglobin 29 pg (25-35) Mean Corpuscular Hemoglobin Concent 33 g/dL (31-37) Red Cell Distribution Width 19.3 % (11.5-14.5) Platelet Count 178 x10^3/uL (140-400) Neutrophils (%) (Auto) 70 % (31-73) Lymphocytes (%) (Auto) 17 % (24-48) Monocytes (%) (Auto) 11 % (0-9) Eosinophils (%) (Auto) 2 % (0-3) Basophils (%) (Auto) 0 % (0-3) Neutrophils # (Auto) 2.6 x10^3/uL (1.8-7.7) Lymphocytes # (Auto) 0.6 x10^3/uL (1.0-4.8) Monocytes # (Auto) 0.4 x10^3/uL (0.0-1.1) Eosinophils # (Auto) 0.1 x10^3/uL (0.0-0.7) Basophils # (Auto) 0.0 x10^3/uL (0.0-0.2) Prothrombin Time 24.1 SEC (11.7-14.0) Prothromb Time International Ratio 2.2 (0.8-1.1) Sodium Level 146 mmol/L (136-145) Potassium Level 3.2 mmol/L (3.5-5.1) Chloride Level 110 mmol/L (98-107) Carbon Dioxide Level 25 mmol/L (21-32) Anion Gap 11 (6-14) Blood Urea Nitrogen 13 mg/dL (7-20) Creatinine 0.9 mg/dL (0.6-1.0) Estimated GFR (Cockcroft-Gault) 69.0 BUN/Creatinine Ratio 14 (6-20) Glucose Level 105 mg/dL (70-99) Calcium Level 7.8 mg/dL (8.5-10.1) Phosphorus Level 2.6 mg/dL (2.6-4.7) Total Bilirubin 7.8 mg/dL (0.2-1.0) Aspartate Amino Transf (AST/SGOT) 271 U/L (15-37) Alanine Aminotransferase (ALT/SGPT) 99 U/L (14-59) Alkaline Phosphatase 122 U/L (46-116) Total Protein 4.9 g/dL (6.4-8.2) Albumin 2.5 g/dL (3.4-5.0) Albumin/Globulin Ratio 1.0 (1.0-1.7) Laboratory Tests Test 11/19/20 12:55 11/19/20 14:55 11/20/20 01:57 11/20/20 04:45 Ionized Calcium 1.05 mmol/L (1.13-1.32) Free Thyroxine 0.82 ng/dL (0.76-1.46) Glucose (Fingerstick) 99 mg/dL (70-99) White Blood Count 3.7 x10^3/uL (4.0-11.0) Red Blood Count 2.44 x10^6/uL (3.50-5.40) Hemoglobin 7.1 g/dL (12.0-15.5) Hematocrit 21.9 % (36.0-47.0) Mean Corpuscular Volume 90 fL (79-100) Mean Corpuscular Hemoglobin 29 pg (25-35) Mean Corpuscular Hemoglobin Concent 33 g/dL (31-37) Red Cell Distribution Width 19.3 % (11.5-14.5) Platelet Count 178 x10^3/uL (140-400) Neutrophils (%) (Auto) 70 % (31-73) Lymphocytes (%) (Auto) 17 % (24-48) Monocytes (%) (Auto) 11 % (0-9) Eosinophils (%) (Auto) 2 % (0-3) Basophils (%) (Auto) 0 % (0-3) Neutrophils # (Auto) 2.6 x10^3/uL (1.8-7.7) Lymphocytes # (Auto) 0.6 x10^3/uL (1.0-4.8) Monocytes # (Auto) 0.4 x10^3/uL (0.0-1.1) Eosinophils # (Auto) 0.1 x10^3/uL (0.0-0.7) Basophils # (Auto) 0.0 x10^3/uL (0.0-0.2) Prothrombin Time 24.1 SEC (11.7-14.0) Prothromb Time International Ratio 2.2 (0.8-1.1) Sodium Level 146 mmol/L (136-145) Potassium Level 3.2 mmol/L (3.5-5.1) Chloride Level 110 mmol/L (98-107) Carbon Dioxide Level 25 mmol/L (21-32) Anion Gap 11 (6-14) Blood Urea Nitrogen 13 mg/dL (7-20) Creatinine 0.9 mg/dL (0.6-1.0) Estimated GFR (Cockcroft-Gault) 69.0 BUN/Creatinine Ratio 14 (6-20) Glucose Level 105 mg/dL (70-99) Calcium Level 7.8 mg/dL (8.5-10.1) Phosphorus Level 2.6 mg/dL (2.6-4.7) Total Bilirubin 7.8 mg/dL (0.2-1.0) Aspartate Amino Transf (AST/SGOT) 271 U/L (15-37) Alanine Aminotransferase (ALT/SGPT) 99 U/L (14-59) Alkaline Phosphatase 122 U/L (46-116) Total Protein 4.9 g/dL (6.4-8.2) Albumin 2.5 g/dL (3.4-5.0) Albumin/Globulin Ratio 1.0 (1.0-1.7) Assessment/Plan Assessment/Plan AMS acute liver failure--referral to transplant [employer] when stable hydrops GB--not a surgical candidate, no surgical plans anemia, hx gastric ulcers, NSAID, alcoholism will be available, please call with questions CAR FERRARA MD 11/20/202009: CONSULT Assessment/Plan Assessment/Plan Pt seen and examined. Agree with Ms. Bridges's note Pt somnolent, jaundiced abd soft, NTTP continue supportive care poor surgical candidate. Thanks for consult! JAVON BRIDGES MEDICAL STAFFING COORDINATOR Nov 20, 2020 09:31 CAR FERRARA MD Nov 20, 2020 20:10
--- NOTE | 2020-11-20 09:38 | PDOC ---
PROGRESS NOTES Date of Service DATE: 11/20/20 TIME: 09:35 Assessment Metabolic encephalopathy Pancreatitis, liver failure, renal failure, pancreatitis, history of gastric bypass for obesity, sepsis, hypothermia, anemia, coagulopathy, GERD, history of GI bleed and gastritis, history of anxiety and depression, hydropic gallbladder, hepatic steatosis, diarrhea on lactulose Plan No additional neurological studies planned Treat medical diseases Will follow Subjective None Objective Vital Signs Date Time Temp Pulse Resp B/P (MAP) Pulse Ox O2 Delivery O2 Flow Rate FiO2 11/20/20 06:00 62 19 120/82 (95) 96 Nasal Cannula 3.0 11/20/20 04:00 97.5 97.5 Intake and Output 11/20/20 07:00 Intake Total 1639.1 ml Output Total 3875 ml Balance -2235.9 ml Intake IV Total 1439.1 ml Blood Product IV Normal Saline Flush 200 ml Output Urine Total 875 ml Stool Total 3000 ml PHYSICAL EXAM Jaundiced Eyes closed, arouses a little bit to pain, nonverbal, does not follow commands PERRL. EOMI. CN: no focal findings. Muscle tone: normal. Muscle strength: Withdraws slightly to pain DTR: 1+ Plantar reflex: Flexor Gait: not examined in bed. Sensory exam: Not cooperative. Cerebellar: Not cooperative Review of Relevant I have reviewed the following items josue (where applicable) has been applied. Labs Laboratory Tests Test 11/18/20 13:40 11/18/20 17:57 11/19/20 06:05 11/19/20 09:00 Hemoglobin 8.1 g/dL (12.0-15.5) 7.7 g/dL (12.0-15.5) Hematocrit 24.8 % (36.0-47.0) 23.6 % (36.0-47.0) Mean Corpuscular Hemoglobin Concent 33 g/dL (31-37) 33 g/dL (31-37) Lactic Acid Level 2.1 mmol/L (0.4-2.0) 2.2 mmol/L (0.4-2.0) Ammonia 40 mcmol/L (11-34) 35 mcmol/L (11-34) Troponin I Quantitative 0.050 ng/mL (0.000-0.055) Procalcitonin 4.43 ng/mL (0.00-0.10) White Blood Count 4.3 x10^3/uL (4.0-11.0) Red Blood Count 2.64 x10^6/uL (3.50-5.40) Mean Corpuscular Volume 89 fL (79-100) Mean Corpuscular Hemoglobin 29 pg (25-35) Red Cell Distribution Width 19.1 % (11.5-14.5) Platelet Count 204 x10^3/uL (140-400) Neutrophils (%) (Auto) 68 % (31-73) Lymphocytes (%) (Auto) 15 % (24-48) Monocytes (%) (Auto) 16 % (0-9) Eosinophils (%) (Auto) 1 % (0-3) Basophils (%) (Auto) 1 % (0-3) Neutrophils # (Auto) 2.9 x10^3/uL (1.8-7.7) Lymphocytes # (Auto) 0.6 x10^3/uL (1.0-4.8) Monocytes # (Auto) 0.7 x10^3/uL (0.0-1.1) Eosinophils # (Auto) 0.0 x10^3/uL (0.0-0.7) Basophils # (Auto) 0.0 x10^3/uL (0.0-0.2) Prothrombin Time 25.8 SEC (11.7-14.0) Prothromb Time International Ratio 2.4 (0.8-1.1) Magnesium Level 1.8 mg/dL (1.8-2.4) Sodium Level 142 mmol/L (136-145) Potassium Level 3.4 mmol/L (3.5-5.1) Chloride Level 105 mmol/L (98-107) Carbon Dioxide Level 24 mmol/L (21-32) Anion Gap 13 (6-14) Blood Urea Nitrogen 14 mg/dL (7-20) Creatinine 1.2 mg/dL (0.6-1.0) Estimated GFR (Cockcroft-Gault) 49.5 BUN/Creatinine Ratio 12 (6-20) Glucose Level 86 mg/dL (70-99) Calcium Level 7.5 mg/dL (8.5-10.1) Total Bilirubin 9.0 mg/dL (0.2-1.0) Aspartate Amino Transf (AST/SGOT) 540 U/L (15-37) Alanine Aminotransferase (ALT/SGPT) 158 U/L (14-59) Alkaline Phosphatase 140 U/L (46-116) Total Protein 4.5 g/dL (6.4-8.2) Albumin 1.6 g/dL (3.4-5.0) Albumin/Globulin Ratio 0.6 (1.0-1.7) Test 11/19/20 12:55 11/19/20 14:55 11/20/20 01:57 11/20/20 04:45 Ionized Calcium 1.05 mmol/L (1.13-1.32) Free Thyroxine 0.82 ng/dL (0.76-1.46) Glucose (Fingerstick) 99 mg/dL (70-99) White Blood Count 3.7 x10^3/uL (4.0-11.0) Red Blood Count 2.44 x10^6/uL (3.50-5.40) Hemoglobin 7.1 g/dL (12.0-15.5) Hematocrit 21.9 % (36.0-47.0) Mean Corpuscular Volume 90 fL (79-100) Mean Corpuscular Hemoglobin 29 pg (25-35) Mean Corpuscular Hemoglobin Concent 33 g/dL (31-37) Red Cell Distribution Width 19.3 % (11.5-14.5) Platelet Count 178 x10^3/uL (140-400) Neutrophils (%) (Auto) 70 % (31-73) Lymphocytes (%) (Auto) 17 % (24-48) Monocytes (%) (Auto) 11 % (0-9) Eosinophils (%) (Auto) 2 % (0-3) Basophils (%) (Auto) 0 % (0-3) Neutrophils # (Auto) 2.6 x10^3/uL (1.8-7.7) Lymphocytes # (Auto) 0.6 x10^3/uL (1.0-4.8) Monocytes # (Auto) 0.4 x10^3/uL (0.0-1.1) Eosinophils # (Auto) 0.1 x10^3/uL (0.0-0.7) Basophils # (Auto) 0.0 x10^3/uL (0.0-0.2) Prothrombin Time 24.1 SEC (11.7-14.0) Prothromb Time International Ratio 2.2 (0.8-1.1) Sodium Level 146 mmol/L (136-145) Potassium Level 3.2 mmol/L (3.5-5.1) Chloride Level 110 mmol/L (98-107) Carbon Dioxide Level 25 mmol/L (21-32) Anion Gap 11 (6-14) Blood Urea Nitrogen 13 mg/dL (7-20) Creatinine 0.9 mg/dL (0.6-1.0) Estimated GFR (Cockcroft-Gault) 69.0 BUN/Creatinine Ratio 14 (6-20) Glucose Level 105 mg/dL (70-99) Calcium Level 7.8 mg/dL (8.5-10.1) Phosphorus Level 2.6 mg/dL (2.6-4.7) Total Bilirubin 7.8 mg/dL (0.2-1.0) Aspartate Amino Transf (AST/SGOT) 271 U/L (15-37) Alanine Aminotransferase (ALT/SGPT) 99 U/L (14-59) Alkaline Phosphatase 122 U/L (46-116) Total Protein 4.9 g/dL (6.4-8.2) Albumin 2.5 g/dL (3.4-5.0) Albumin/Globulin Ratio 1.0 (1.0-1.7) Laboratory Tests Test 11/19/20 12:55 11/19/20 14:55 11/20/20 01:57 11/20/20 04:45 Ionized Calcium 1.05 mmol/L (1.13-1.32) Free Thyroxine 0.82 ng/dL (0.76-1.46) Glucose (Fingerstick) 99 mg/dL (70-99) White Blood Count 3.7 x10^3/uL (4.0-11.0) Red Blood Count 2.44 x10^6/uL (3.50-5.40) Hemoglobin 7.1 g/dL (12.0-15.5) Hematocrit 21.9 % (36.0-47.0) Mean Corpuscular Volume 90 fL (79-100) Mean Corpuscular Hemoglobin 29 pg (25-35) Mean Corpuscular Hemoglobin Concent 33 g/dL (31-37) Red Cell Distribution Width 19.3 % (11.5-14.5) Platelet Count 178 x10^3/uL (140-400) Neutrophils (%) (Auto) 70 % (31-73) Lymphocytes (%) (Auto) 17 % (24-48) Monocytes (%) (Auto) 11 % (0-9) Eosinophils (%) (Auto) 2 % (0-3) Basophils (%) (Auto) 0 % (0-3) Neutrophils # (Auto) 2.6 x10^3/uL (1.8-7.7) Lymphocytes # (Auto) 0.6 x10^3/uL (1.0-4.8) Monocytes # (Auto) 0.4 x10^3/uL (0.0-1.1) Eosinophils # (Auto) 0.1 x10^3/uL (0.0-0.7) Basophils # (Auto) 0.0 x10^3/uL (0.0-0.2) Prothrombin Time 24.1 SEC (11.7-14.0) Prothromb Time International Ratio 2.2 (0.8-1.1) Sodium Level 146 mmol/L (136-145) Potassium Level 3.2 mmol/L (3.5-5.1) Chloride Level 110 mmol/L (98-107) Carbon Dioxide Level 25 mmol/L (21-32) Anion Gap 11 (6-14) Blood Urea Nitrogen 13 mg/dL (7-20) Creatinine 0.9 mg/dL (0.6-1.0) Estimated GFR (Cockcroft-Gault) 69.0 BUN/Creatinine Ratio 14 (6-20) Glucose Level 105 mg/dL (70-99) Calcium Level 7.8 mg/dL (8.5-10.1) Phosphorus Level 2.6 mg/dL (2.6-4.7) Total Bilirubin 7.8 mg/dL (0.2-1.0) Aspartate Amino Transf (AST/SGOT) 271 U/L (15-37) Alanine Aminotransferase (ALT/SGPT) 99 U/L (14-59) Alkaline Phosphatase 122 U/L (46-116) Total Protein 4.9 g/dL (6.4-8.2) Albumin 2.5 g/dL (3.4-5.0) Albumin/Globulin Ratio 1.0 (1.0-1.7) Medications Current Medications Lorazepam (Ativan Inj) 0.5 mg PRN Q6HRS PRN IVP ANXIETY / AGITATION Last administered on 11/18/20at 18:10; Start 11/17/20 at 16:15; Stop 11/19/20 at 01:14; Status DC Ondansetron HCl (Zofran) 4 mg PRN Q6HRS PRN IVP NAUSEA/VOMITING; Start 11/17/20 at 16:15 Prochlorperazine Edisylate (Compazine) 5 mg PRN Q6HRS PRN IVP NAUSEA/VOMITING, 2ND CHOICE; Start 11/17/20 at 16:15 Info (Icu Electrolyte Protocol) 1 ea DAILY MC ; Start 11/18/20 at 09:00 Sodium Chloride (Normal Saline Flush) 3 ml QSHIFT PRN IV AFTER MEDS AND BLOOD DRAWS; Start 11/17/20 at 16:15 Sodium Chloride 1,000 ml @ 1,000 mls/hr Q1H IV Last administered on 11/17/20at 17:50; Start 11/17/20 at 16:15; Stop 11/17/20 at 17:14; Status DC Fentanyl Citrate (Fentanyl 2ml Vial) 25 mcg PRN Q1HR PRN IV SEVERE PAIN 7-10 Last administered on 11/19/20at 09:43; Start 11/17/20 at 16:15 Lactulose (Lactulose) 20 gm PRN Q12HR PRN PO CONSTIPATION; Start 11/17/20 at 16:15; Stop 11/17/20 at 17:40; Status DC Bisacodyl (Dulcolax Supp) 10 mg PRN DAILY PRN [place] CONSTIPATION; Start 11/17/20 at 16:15 Pantoprazole Sodium (PROTONIX VIAL for IV PUSH) 40 mg DAILYAC IVP ; Start at 07:30; Stop 11/17/20 at 17:40; Status DC Lactulose (LACTULOSE 300ML for RECTAL) 200 gm Q6HRS AK ; Start 11/17/20 at 18:00 ; Stop 11/17/20 at 17:40; Status DC Sodium Bicarbonate 75 meq/Sodium Chloride 1,075 ml @ 125 mls/hr Q8H36M IV Last administered on 11/19/20at 05:44; Start 11/17/20 at 17:00; Stop 11/19/20 at 09:16; Status DC Pantoprazole Sodium (PROTONIX VIAL for IV PUSH) 80 mg 1X ONCE IVP Last administered on 11/17/20at 17:50; Start 11/17/20 at 18:00; Stop 11/17/20 at 18:01; Status DC Pantoprazole Sodium 80 mg/ Sodium Chloride 100 ml @ 10 mls/hr Q10H IV Last administered on 11/20/20at 00:36; Start 11/17/20 at 18:00 Octreotide Acetate 500 mcg/ Sodium Chloride 101 ml @ 10.1 mls/hr CONT PRN IV SEE I/O RECORD Last administered on 11/20/20at 00:36; Start 11/17/20 at 17:30 Lactulose (LACTULOSE 300ML for RECTAL) 200 gm Q2HR [place] Last administered on 11/20/20at 02:00; Start 11/17/20 at 18:00 Magnesium Sulfate 50 ml @ 25 mls/hr 1X ONCE IV Last administered on 11/17/20at 18:34; Start 11/17/20 at 18:30; Stop 11/17/20 at 20:29; Status DC Albumin Human 500 ml @ 125 mls/hr PRN DAILY PRN IV HYPOTENSION Last administered on 11/18/20at 01:47; Start 11/18/20 at 00:15 Multivitamins 10 ml/Thiamine HCl 100 mg/Folic Acid 1 mg/Sodium Chloride 1,011.2 ml @ 100 mls/ hr DAILY IV Last administered on 11/19/20at 22:08; Start 11/18/20 at 09:00; Stop 11/22/20 at 19:07 Thiamine HCl 100 mg/Dextrose 51 ml @ 100 mls/hr DAILY IV ; Start 11/23/20 at 09:00; Stop 11/27/20 at 09:31 Lorazepam (Ativan) 2 mg Q6H PO ; Start 11/18/20 at 08:00; Stop 11/19/20 at 01:14; Status DC Lactulose (Lactulose) 30 gm PRN DAILY PRN PO GI SYMPTOMS; Start 11/18/20 at 08:00; Status UNV Lactulose (Lactulose) 30 gm PRN DAILY PRN PO GI SYMPTOMS; Start 11/18/20 at 08:30; Status UNV Piperacillin Sod/ Tazobactam Sod (Zosyn Per Pharmacy) 1 each PRN DAILY PRN MC SEE COMMENTS; Start 11/18/20 at 12:00 Piperacillin Sod/ Tazobactam Sod 3.375 gm/Sodium Chloride 50 ml @ 100 mls/hr Q6HRS IV Last administered on 11/20/20at 05:56; Start 11/18/20 at 12:00 Phytonadione (Vitamin K Ampule) 5 mg 1X ONCE SQ Last administered on 11/18/20at 12:50; Start 11/18/20 at 12:15; Stop 11/18/20 at 12:16; Status DC Lorazepam (Ativan Inj) 2 mg PRN Q1HR PRN IV For CIWA 8-14 Last administered on 11/19/20at 09:42; Start 11/18/20 at 18:15 Potassium Chloride/Water 100 ml @ 100 mls/hr Q1H IV Last administered on 11/19/20at 09:30; Start 11/19/20 at 08:30; Stop 11/19/20 at 10:29; Status DC Magnesium Sulfate 50 ml @ 25 mls/hr PRN DAILY PRN IV for Mag < 1.7 on am labs; Start 11/19/20 at 08:30 Albumin Human 100 ml @ 100 mls/hr TID IV Last administered on 11/19/20at 22:08; Start 11/19/20 at 10:00; Stop 11/20/20 at 21:59 Lorazepam (Ativan Inj) 4 mg PRN Q1HR PRN IV For CIWA 15 or greater; Start 11/19/20 at 10:00 Dexmedetomidine HCl 400 mcg/ Sodium Chloride 100 ml @ 0 mls/hr CONT PRN IV PER PROTOCOL Last administered on 11/20/20at 04:29; Start 11/19/20 at 10:00 Sodium Chloride 500 ml @ 500 mls/hr 1X PRN PRN IV SEE COMMENTS; Start 11/19/20 at 10:00 Atropine Sulfate (ATROPINE 0.5mg SYRINGE) 0.5 mg PRN Q5MIN PRN IV SEE COMMENTS; Start 11/19/20 at 10:00 Calcium Gluconate 1000 mg/Sodium Chloride 110 ml @ 220 mls/hr 1X ONCE IV ; Start 11/19/20 at 14:00; Stop 11/19/20 at 14:29; Status UNV Calcium Gluconate 1000 mg/Sodium Chloride 110 ml @ 220 mls/hr 1X ONCE IV Last administered on 11/19/20at 14:29; Start 11/19/20 at 15:00; Stop 11/19/20 at 15:29; Status DC Vitals/I & O Vital Sign - Last 24 Hours 11/19/20 11/19/20 11/19/20 11/19/20 09:43 10:00 10:13 11:00 Pulse 92 86 Resp B/P (MAP) 124/60 (81) Pulse Ox 95 95 95 95 O2 Delivery Room Air Room Air Room Air Room Air 11/19/20 11/19/20 11/19/20 11/19/20 12:00 12:00 13:00 14:00 Temp 97.9 97.9 Pulse 86 70 70 Resp B/P (MAP) 78/44 (55) 91/61 (71) 92/56 (68) Pulse Ox 95 95 95 O2 Delivery Room Air Room Air Room Air Room Air 11/19/20 11/19/20 11/19/20 11/19/20 15:00 16:00 16:00 17:00 Temp 98.0 98.0 Pulse 66 66 67 Resp 23 B/P (MAP) 96/61 (73) 85/53 (64) 85/54 (64) Pulse Ox 95 95 95 O2 Delivery Room Air Room Air Room Air Room Air 11/19/20 11/19/20 11/19/20 11/19/20 18:00 19:00 20:00 20:00 Temp 94.4 94.4 Pulse 65 64 62 Resp 23 B/P (MAP) 86/54 (65) 91/64 (73) 105/66 (79) Pulse Ox 99 99 99 O2 Delivery Room Air Nasal Cannula Nasal Cannula Nasal Cannula O2 Flow Rate 2.0 2.0 2.0 11/19/20 11/19/20 11/19/20 11/19/20 21:00 22:00 23:00 23:54 Pulse 63 61 66 Resp B/P (MAP) 99/68 (78) 100/65 (77) 117/82 (94) Pulse Ox 100 99 93 O2 Delivery Nasal Cannula Nasal Cannula Nasal Cannula Nasal Cannula O2 Flow Rate 2.0 2.0 2.0 3.0 11/20/20 11/20/20 11/20/20 11/20/20 00:00 01:00 02:00 03:00 Temp 94.3 94.3 Pulse 64 60 61 74 Resp 19 18 20 19 B/P (MAP) 112/76 (88) 94/57 (69) 100/68 (79) 103/60 (74) Pulse Ox 96 97 95 96 O2 Delivery Nasal Cannula Nasal Cannula Nasal Cannula Nasal Cannula O2 Flow Rate 3.0 3.0 3.0 3.0 11/20/20 11/20/20 11/20/20 11/20/20 04:00 04:00 05:00 06:00 Temp 97.5 97.5 Pulse 65 63 62 Resp 24 19 19 B/P (MAP) 103/60 (74) 125/76 (92) 120/82 (95) Pulse Ox 93 96 96 O2 Delivery Nasal Cannula Nasal Cannula Nasal Cannula Nasal Cannula O2 Flow Rate 3.0 3.0 3.0 3.0 Intake and Output 11/19/20 11/19/20 11/20/20 15:00 23:00 07:00 Intake Total 697 ml 942.1 ml Output Total 2175 ml 400 ml 1300 ml Balance -2175 ml 297 ml -357.[address] HEAD AND MAXILLOFACIAL WO, CT CERVICAL SPINE WO, 11/17, [facility] Head CT: No intracranial hemorrhage. No mass effect. No hydrocephalus. Extra- axial spaces are unremarkable. Frontal scalp soft tissue wound. Maxillofacial CT: Motion degraded evaluation. The entire mandible not included in the image. No definite acute fracture although degraded evaluation especially concerned imaged portions of the mandible. Orbits are unremarkable. Paranasal sinuses and mastoid air cells are clear. No acute calvarial fracture. Cervical spine CT: Motion degraded evaluation. Right upper chest subcutaneous gas. Normal vertebral body alignment. Significantly degraded evaluation of the upper cervical spine and upper thoracic spine due to patient motion. No definite acute fracture. Mild degenerative disc changes. No significant canal narrowing. No definite neuroforaminal narrowing although evaluation is degraded. Soft tissues are unremarkable. Impression: Head CT: 1. No acute intracranial abnormality. Maxillofacial CT: 1. Degraded evaluation due to patient motion. The mandible is not entirely evaluated. No definite fracture. If persistent clinical concern, recommend repeat imaging. Cervical spine CT: 1. Significantly degraded evaluation due to patient motion. No definite fracture. Recommend repeat imaging when patient's condition allows. Justicifation of Admission Dx: Justifications for Admission: Justification of Admission Dx: Yes Sepsis: Altered Mental Status Altered Mental Status: Altered Mental Status MADDISON COLE MD Nov 20, 2020 09:38
[2020-11-20] MEDS: MULTIVIT INFUSN,ADULT 4,VIT K 10 ML, THIAMINE INJ 100 MG, FOLIC ACID INJ 1 MG in IV NOR... IV SCH (10:06)
[2020-11-20] MEDS: POTASSIUM CHLORIDE 10MEQ 100 ML IV SCH ×4 (10:07→16:11)
--- NOTE | 2020-11-20 10:26 | CARD ---
MR#: [id number] Date of Study: 11/20/2020 Ordering Physician: FUENTES MAIER, Referring Physician: FUENTES MAIER, Tech: Sandi Maloney RDCS APPROVED REPORT EXAM: Two-dimensional and M-mode echocardiogram with Doppler and color Doppler. Other Information Quality : Good Technically limited study due to body habitus. INDICATION Hypotension 2D DIMENSIONS RVDd2.4 (2.9-3.5cm)Left Atrium(2D)3.7 (1.6-4.0cm) IVSd1.3 (0.7-1.1cm)Aortic Root(2D)3.0 (2.0-3.7cm) LVDd4.5 (3.9-5.9cm)LVOT Diameter2.0 (1.8-2.4cm) PWd1.3 (0.7-1.1cm)LVDs3.2 (2.5-4.0cm) FS (%) 30.0 %SV53.6 ml LVEF(%)57.4 (>50%) Aortic Valve AoV Peak Galileo.115.0cm/sAoV VTI24.9cm AO Peak GR.5.3mmHgLVOT VTI 20.62cm AO Mean GR.3mmHgAVA (VTI)2.60cm2 Mitral Valve MV E Iipffhua707.9cm/sMV DECEL BTBS549iu MV A Lflwjtst59.3cm/sE/A Ratio1.6 TDI Lateral E' P. V10.75cm/sMedial E' P. V9.65cm/s E/Lateral E'10.7E/Medial E'11.9 Tricuspid Valve TR P. [id number]/sRAP [id number] TR Peak Gr.[id number] Pulmonary Vein S1 Dypevqae82.2cm/sS2 Nkqpqxnj59.32cm/s D2 Tsvrnkim30.3cm/s LEFT VENTRICLE The left ventricle is normal size. There is mild concentric left ventricular hypertrophy. The left ve ntricular systolic function is normal and the ejection fraction is within normal range. The Ejection Fraction is 55-60%. There is grossly normal LV segmental wall motion. Transmitral Doppler flow patter n is Grade I-abnormal relaxation pattern. RIGHT VENTRICLE The right ventricle is normal size. The right ventricular systolic function is normal. ATRIA The left atrium size is normal. The right atrium size is normal. The interatrial septum is intact wit h no evidence for an atrial septal defect or patent foramen ovale as noted on 2-D or Doppler imaging. AORTIC VALVE The aortic valve is not well visualized but appears to be functioning normally by Doppler interrogati on. Doppler and Color Flow revealed no significant aortic regurgitation. There is no significant aort ic valvular stenosis. MITRAL VALVE The mitral valve is calcified but opens well. There is no evidence of mitral valve prolapse. There is no mitral valve stenosis. Doppler and Color-flow revealed trace to mild mitral regurgitation. TRICUSPID VALVE The tricuspid valve is normal in structure and function. Doppler and Color Flow revealed trace to mil d tricuspid regurgitation. The PA pressure was estimated at 35 mmHg. There is no tricuspid valve sten osis. PULMONIC VALVE The pulmonic valve is not well visualized. Doppler and Color Flow revealed mild pulmonic valvular reg urgitation. There is no pulmonic valvular stenosis. GREAT VESSELS The aortic root is normal in size. The ascending aorta is not well seen. The IVC was not visualized. PERICARDIAL EFFUSION There is no evidence of significant pericardial effusion. Critical Notification Critical Value: No <Conclusion> The left ventricular systolic function is normal and the ejection fraction is within normal range. Th e Ejection Fraction is 55-60%. There is grossly normal LV segmental wall motion. Doppler and Color Flow revealed trace to mild tricuspid regurgitation. The PA pressure was estimated at 35 mmHg. Signed by : Main Gupta, Electronically Approved : 11/20/2020 10:26:14
--- NOTE | 2020-11-20 10:31 | PDOC ---
SERGIO KWON FILLER ROOM ATTENDANT 11/20/20 1031: CARDIO Progress Notes Date and Time Date of Service 11/20/20 Time of Evaluation 1020 Subjective Subjective: Other (moaning) Vitals Vitals Vital Signs Date Time Temp Pulse Resp B/P (MAP) Pulse Ox O2 Delivery O2 Flow Rate FiO2 11/20/20 06:00 62 19 120/82 (95) 96 Nasal Cannula 3.0 11/20/20 04:00 97.5 97.5 Weight Weight [ ] Input and Output Intake and Output Intake and Output 11/20/20 07:00 Intake Total 1639.1 ml Output Total 3875 ml Balance -2235.9 ml Intake IV Total 1439.1 ml Blood Product IV Normal Saline Flush 200 ml Output Urine Total 875 ml Stool Total 3000 ml Laboratory Labs Laboratory Tests Test 11/19/20 12:55 11/19/20 14:55 11/20/20 01:57 11/20/20 04:45 Ionized Calcium 1.05 mmol/L (1.13-1.32) Vitamin B12 Level > 2000 pg/mL (247-911) 25-Hydroxy Vitamin D Total 18.0 ng/mL (30-100) Free Thyroxine 0.82 ng/dL (0.76-1.46) Glucose (Fingerstick) 99 mg/dL (70-99) White Blood Count 3.7 x10^3/uL (4.0-11.0) Red Blood Count 2.44 x10^6/uL (3.50-5.40) Hemoglobin 7.1 g/dL (12.0-15.5) Hematocrit 21.9 % (36.0-47.0) Mean Corpuscular Volume 90 fL (79-100) Mean Corpuscular Hemoglobin 29 pg (25-35) Mean Corpuscular Hemoglobin Concent 33 g/dL (31-37) Red Cell Distribution Width 19.3 % (11.5-14.5) Platelet Count 178 x10^3/uL (140-400) Neutrophils (%) (Auto) 70 % (31-73) Lymphocytes (%) (Auto) 17 % (24-48) Monocytes (%) (Auto) 11 % (0-9) Eosinophils (%) (Auto) 2 % (0-3) Basophils (%) (Auto) 0 % (0-3) Neutrophils # (Auto) 2.6 x10^3/uL (1.8-7.7) Lymphocytes # (Auto) 0.6 x10^3/uL (1.0-4.8) Monocytes # (Auto) 0.4 x10^3/uL (0.0-1.1) Eosinophils # (Auto) 0.1 x10^3/uL (0.0-0.7) Basophils # (Auto) 0.0 x10^3/uL (0.0-0.2) Prothrombin Time 24.1 SEC (11.7-14.0) Prothromb Time International Ratio 2.2 (0.8-1.1) Sodium Level 146 mmol/L (136-145) Potassium Level 3.2 mmol/L (3.5-5.1) Chloride Level 110 mmol/L (98-107) Carbon Dioxide Level 25 mmol/L (21-32) Anion Gap 11 (6-14) Blood Urea Nitrogen 13 mg/dL (7-20) Creatinine 0.9 mg/dL (0.6-1.0) Estimated GFR (Cockcroft-Gault) 69.0 BUN/Creatinine Ratio 14 (6-20) Glucose Level 105 mg/dL (70-99) Calcium Level 7.8 mg/dL (8.5-10.1) Phosphorus Level 2.6 mg/dL (2.6-4.7) Total Bilirubin 7.8 mg/dL (0.2-1.0) Aspartate Amino Transf (AST/SGOT) 271 U/L (15-37) Alanine Aminotransferase (ALT/SGPT) 99 U/L (14-59) Alkaline Phosphatase 122 U/L (46-116) Total Protein 4.9 g/dL (6.4-8.2) Albumin 2.5 g/dL (3.4-5.0) Albumin/Globulin Ratio 1.0 (1.0-1.7) Physical Exam HEENT: Neck Supple W Full Motion Chest: Symmetric LUNGS: Other (diminished bases) Heart: S1S2, RRR Abdomen: Other (soft, obese. rectal tube) Extremities: Other (jaundice ) Neurology: alert, confused, other (moaning ) Assessment Assessment 1. Acute metabolic encephalopathy, most likely hepatic etiology with elevated ammonia. On Lactulose . 2. Transaminitis, acute liver failure, coagulopathy; as per GI 2. Hypotension; consistently adequate. not requiring pressors. Telemetry showed sinus rhythm. Echo showed preserved LV systolic function, no WMA. Supportive care. No further cardiac workup warranted at this time. 3. Anemia; most probably acute blood loss s/p transfusion. 4. Acute renal failure, probably hepatorenal. Nephrology following. 5. Hypothermia; requiring Juan Hugger overnight 6. Chronic alcohol use disorder, anxiety, depression 7. Hypokalmeia; check Mg and replace as warranted Justicifation of Admission Dx: Justifications for Admission: Justification of Admission Dx: Yes Sepsis: Altered Mental Status Altered Mental Status: Altered Mental Status SHERINE VIEYRA MD 11/21/20 0952: CARDIO Progress Notes Assessment Assessment Patient seen and examined 11/20/2020. Agree with REMELTER's assessment and plan. Continue management of acute metabolic encephalopathy, acute liver failure per GI team Hypotension resolved 2D echo showed normal LV systolic function Nephrology following for acute renal failure No further cardiac work-up is indicated at this time We will follow as needed SERGIO KWON APRN Nov 20, 2020 10:31 SHERINE VIEYRA MD Nov 21, 2020 09:52
--- NOTE | 2020-11-20 11:57 | NUR ---
PICC Pre-Insertion Note: Allergies and reactions NKDA INR 2.2 BUN 13 Cr 0.9 Platelets 178 Blood culture done no blood culture results n/a Order Verified yes Consent signed yes Previous PICC placement unknown Past Medical/Surgical history and current diagnosis reviewed yes Patient Medical /Surgical History Related to PICC line placement History of acute/chronic renal failure Infectious Disease consult Past central line or venous access device placement Renal consult Special considerations for PICC line placement None PICC placement indication buttermaker continuous churn antibiotic usage, Multiple/ Frequent blood draws, Terese Rico RN PICC Nurse Addendum: 11/20/20 at 1253 by ANA RICO RN Amended: Links added.
--- NOTE | 2020-11-20 12:34 | NUR ---
PICC Insertion Note: Procedure: Following complete explanation of the PICC procedure including the indications, risks, and potential complications, informed consent was obtained. The possibility for infection was discussed along with signs, symptoms, and prevention. All the questions were answered. Written and verbal patient education was provided. Hand hygiene performed. Standardized central line checklist was utilized. The patient was placed in the supine position, the arm was prepped with chlorhexidine and patient draped with maximum sterile barrier. 3 mL 1% lidocaine was infiltrated into the skin to provide local anesthesia. A thorough assessment of Right upper extremity completed. Using real-time ultrasound guidance and standardized micro puncture set, the Brachial vein was punctured and a peel away sheath was placed using the modified Seldinger technique. A tip location device was used to ensure adequate catheter placement. The catheter was secured using a securement device and an antimicrobial patch was applied directly on the insertion site followed by a transparent dressing. All ports withdraw blood and flush without resistance. Patient tolerated the procedure without apparent complication(s). Triple Lumen Power PICC placement successful and uncomplicated. Placement verified by EKG tip confirmation system and/or chest x-ray. Tip located in the CAJ/SVC. Complications: none Catheter trimmed at 40cm with 2cm visible at insertion site.
--- NOTE | 2020-11-20 12:36 | PDOC ---
[employer] PROGRESS NOTE Date of Service DOS: DATE: 11/20/20 TIME: 12:35 Chief Complaint Chief Complaint Confusion History of Present Illness History of Present Illness 11/20/20 Patient seen and examined in the ICU Chart reviewed She is visibly jaundiced Very anemic with HBG at 2.44 Hypothermic today with temp of 97.5 F (04:00), up from 94.4 F yesterday (20:00) White blood cells trending downward from normal, today WBC are 3.7 Dex for sedation Octreotide drip in the room IV Protonix going Continue rectal bag Wood to BSD in place 11/19/20 VERY ANEMIC, HYPOTENSIVE 11-18 MELD score on admit is 40, PROGNOSIS VERY GUARDED ECHO pending, cardiology consulted Stools slightly red per RN NH4 pending IONIZED CA 1.05 VIT D LEVEL pending 11/18/20 VERY ANEMIC, HYPOTENSIVE OVERNIGHT ECHO pending, cardiology consulted NH4 pending ID CONSULT NEUROLOGY CONSULT Gen Surg consult 11/17/20 Ms Phipps is a 40yo F w/ PMHx morbid obesity s/p gastric bypass ini 2008, alcohol use disorder, Anxiety, Depression, Hypertension, IBS, Kidney Stones, Pancreatitis, chronic back pain, and smoker who presented to [facility] ED in [place], [place] via EMS for altered mental status. Her called because patient has been on couch has been increasingly confused over the past 5 days. Per EMS report she had a fall a few days ago when she was intoxicated. EKG appears sinus tachycardia, heart rate [address] elevation or depression, no ectopy. Normal intervals. T waves unremarkable. CT chest abdomen pelvis revealed severe hepatic steatosis and cholelithiasis with hydropic gallbladder and gastric bypass, no other acute findings. CT head with no acute hemorrhage. Labs with WBC 7.5, Hb 6.4, platelets 237, Na 130, K 4.3, BUN 10, Cr 2.3, glucose 72, Trop 0, BNP 939, Albumin 1.8, INR 4.9, ammonia 44, bilirubin 11, AST 2744, ALT 400, Alk phos 172, Lipase 42 Given concern for acute liver failure and acute renal failure [facility]. Seen bedside with her , patient following very few commands, otherwise drowsy, not oriented, moaning, not articulating well or making meaningful eye contact. notes that sometimes this might happen for a week at a time at home and frightens their 11 and 17 year old children. He notes "it has been a rough year". She [facility] October after a DUI and parole violation of intoxication with alcohol that led to her serving 17 months in [facility] [place]. She has struggled with substance use disorder, specifically alcohol, according to her since her gastric bypass in 2008, has been previously treated for this as well as pancreatitis. Admitted to ICU for further treatment. Due to the inability to maintain a peripheral IV and concern for potential uncontrollable bleeding in the neck a right femoral central venous catheter was placed for medications, blood transfusion and lab draw purposes for frequent lab draws. Vitals/I&O Vitals/I&O: Vital Signs Date Time Temp Pulse Resp B/P (MAP) Pulse Ox O2 Delivery O2 Flow Rate FiO2 11/20/20 06:00 62 19 120/82 (95) 96 Nasal Cannula 3.0 11/20/20 04:00 97.5 97.5 I & O 11/19/20 11/19/20 11/20/20 15:00 23:00 07:00 Intake Total 697 ml 942.1 ml Output Total 2175 ml 400 ml 1300 ml Balance -2175 ml 297 ml -357.9 ml Physical Exam Physical Exam: GENERAL: Somnolent, appears comfortable on nasal O2 HEENT: Normocephalic, atraumatic. Sclerae icteric. NECK: Supple. LUNGS: Clear bilaterally. HEART: S1, S2. No murmurs. ABDOMEN: Obese, soft, Bowel sounds present, does not grimace on deep palpation EXTREMITIES: Edema present no cyanosis. GENITOURINARY: Wood in place. Fecal tube in place. Femoral line removed DERMATOLOGIC: No generalized rash. Multiple tattoos. Skin visibly jaundiced CENTRAL NERVOUS SYSTEM: Somnolent, unable to assess PIVs clean General: Other (not responsive) Heart: Regular rate, Normal S1, Normal S2 Lungs: Clear Abdomen: Soft, Other (obese ) Extremities: No cyanosis Skin: No breakdown, Other (Visibly jaundiced.) Labs Labs: Laboratory Tests Test 11/19/20 12:55 11/19/20 14:55 11/20/20 01:57 11/20/20 04:45 Ionized Calcium 1.05 mmol/L (1.13-1.32) Vitamin B12 Level > 2000 pg/mL (247-911) 25-Hydroxy Vitamin D Total 18.0 ng/mL (30-100) Free Thyroxine 0.82 ng/dL (0.76-1.46) Glucose (Fingerstick) 99 mg/dL (70-99) White Blood Count 3.7 x10^3/uL (4.0-11.0) Red Blood Count 2.44 x10^6/uL (3.50-5.40) Hemoglobin 7.1 g/dL (12.0-15.5) Hematocrit 21.9 % (36.0-47.0) Mean Corpuscular Volume 90 fL (79-100) Mean Corpuscular Hemoglobin 29 pg (25-35) Mean Corpuscular Hemoglobin Concent 33 g/dL (31-37) Red Cell Distribution Width 19.3 % (11.5-14.5) Platelet Count 178 x10^3/uL (140-400) Neutrophils (%) (Auto) 70 % (31-73) Lymphocytes (%) (Auto) 17 % (24-48) Monocytes (%) (Auto) 11 % (0-9) Eosinophils (%) (Auto) 2 % (0-3) Basophils (%) (Auto) 0 % (0-3) Neutrophils # (Auto) 2.6 x10^3/uL (1.8-7.7) Lymphocytes # (Auto) 0.6 x10^3/uL (1.0-4.8) Monocytes # (Auto) 0.4 x10^3/uL (0.0-1.1) Eosinophils # (Auto) 0.1 x10^3/uL (0.0-0.7) Basophils # (Auto) 0.0 x10^3/uL (0.0-0.2) Prothrombin Time 24.1 SEC (11.7-14.0) Prothromb Time International Ratio 2.2 (0.8-1.1) Sodium Level 146 mmol/L (136-145) Potassium Level 3.2 mmol/L (3.5-5.1) Chloride Level 110 mmol/L (98-107) Carbon Dioxide Level 25 mmol/L (21-32) Anion Gap 11 (6-14) Blood Urea Nitrogen 13 mg/dL (7-20) Creatinine 0.9 mg/dL (0.6-1.0) Estimated GFR (Cockcroft-Gault) 69.0 BUN/Creatinine Ratio 14 (6-20) Glucose Level 105 mg/dL (70-99) Calcium Level 7.8 mg/dL (8.5-10.1) Phosphorus Level 2.6 mg/dL (2.6-4.7) Total Bilirubin 7.8 mg/dL (0.2-1.0) Aspartate Amino Transf (AST/SGOT) 271 U/L (15-37) Alanine Aminotransferase (ALT/SGPT) 99 U/L (14-59) Alkaline Phosphatase 122 U/L (46-116) Total Protein 4.9 g/dL (6.4-8.2) Albumin 2.5 g/dL (3.4-5.0) Albumin/Globulin Ratio 1.0 (1.0-1.7) Test 11/20/20 10:25 Ammonia 82 mcmol/L (11-34) Assessment and Plan Assessmemt and Plan Assessment Acute metabolic encephalopathy - seems likely hepatic in origin due fatty liver and alcoholic liver disease Acute anemia Acute renal failure Acute liver failure - MELD score on admit is 40 Acute hepatitis - possibly alcoholic etiology Hydropic gallbladder with gallbladder sludge per US Alcohol use disorder Plan ICU monitoring [facility] protocol Precedex for sedation Trend labs Continue rectal tube DVT Prophylaxis Continue home medication Full code Prognosis guarded Appreciate subspecialist input CC time 31-minute Goals of Care: Advance Care Planning: Total time spent [id number] with patient greater than 16 minutes in discussion with goals of care, comfort care, end-of-life care, pa in management, code status Comment Review of Relevant I have reviewed the following items josue (where applicable) has been applied. Medications: Current Medications Medications (Trade) Dose Ordered Sig/Saud Route PRN Reason Start Time Stop Time Status Last Admin Dose Admin Calcium Gluconate 1000 mg/Sodium Chloride 110 ml @ 220 mls/hr 1X ONCE IV 11/19/20 15:00 11/19/20 15:29 DC 11/19/20 14:29 Potassium Chloride/Water 100 ml @ 100 mls/hr Q1H IV 11/20/20 10:30 11/20/20 14:29 11/20/20 11:30 Justifications for Admission General Conditions Poss tachycardia?: Yes Justification for admission: Patient has tachycardia (> 100 beats per minute) which is not readily corrected by appropriate treatment within 12 to 24 hours. Poss Metaboilic Acidosis?: Yes Justification for admission: Patient has tachycardia (> 100 beats per minute) or hypotension (SBP < 90 mm Hg) leading to inadequate systemic perfusion as indicated by metabolic acidosis with arterial pH of less than 7.35. Altered mental status?: Yes Justification of admission: Patient has tachycardia (> 100 beats per minute) or hypotension (SBP < 90 mm Hg) leading to inadequate systemic perfusion as indicated by severe/persistent altered mental status. Other Justification MOOK CHRISTOPHER III DO Nov 20, 2020 12:36
[2020-11-20] MEDS: ALBUMIN HUMAN 25% 100 ML IV SCH ×3 (13:22→22:11)
--- NOTE | 2020-11-20 13:27 | PDOC ---
Date of Service: DATE: 11/20/20 TIME: 13:15 Objective: Objective: Nurse w/ questions re: lactulose dosing - not able to give full dose because pt can't hold it. On PPI and octreotide drips. Vital Signs: Vital Signs Date Time Temp Pulse Resp B/P (MAP) Pulse Ox O2 Delivery O2 Flow Rate FiO2 11/20/20 06:00 62 19 120/82 (95) 96 Nasal Cannula 3.0 11/20/20 04:00 97.5 97.5 Labs: Laboratory Tests Test 11/19/20 14:55 11/20/20 01:57 11/20/20 04:45 11/20/20 10:25 Vitamin B12 Level > 2000 pg/mL 25-Hydroxy Vitamin D Total 18.0 ng/mL Free Thyroxine 0.82 ng/dL Glucose (Fingerstick) 99 mg/dL White Blood Count 3.7 x10^3/uL Red Blood Count 2.44 x10^6/uL Hemoglobin 7.1 g/dL Hematocrit 21.9 % Mean Corpuscular Volume 90 fL Mean Corpuscular Hemoglobin 29 pg Mean Corpuscular Hemoglobin Concent 33 g/dL Red Cell Distribution Width 19.3 % Platelet Count 178 x10^3/uL Neutrophils (%) (Auto) 70 % Lymphocytes (%) (Auto) 17 % Monocytes (%) (Auto) 11 % Eosinophils (%) (Auto) 2 % Basophils (%) (Auto) 0 % Neutrophils # (Auto) 2.6 x10^3/uL Lymphocytes # (Auto) 0.6 x10^3/uL Monocytes # (Auto) 0.4 x10^3/uL Eosinophils # (Auto) 0.1 x10^3/uL Basophils # (Auto) 0.0 x10^3/uL Prothrombin Time 24.1 SEC Prothromb Time International Ratio 2.2 Sodium Level 146 mmol/L Potassium Level 3.2 mmol/L Chloride Level 110 mmol/L Carbon Dioxide Level 25 mmol/L Anion Gap 11 Blood Urea Nitrogen 13 mg/dL Creatinine 0.9 mg/dL Estimated GFR (Cockcroft-Gault) 69.0 BUN/Creatinine Ratio 14 Glucose Level 105 mg/dL Calcium Level 7.8 mg/dL Phosphorus Level 2.6 mg/dL Total Bilirubin 7.8 mg/dL Aspartate Amino Transf (AST/SGOT) 271 U/L Alanine Aminotransferase (ALT/SGPT) 99 U/L Alkaline Phosphatase 122 U/L Total Protein 4.9 g/dL Albumin 2.5 g/dL Albumin/Globulin Ratio 1.0 Ammonia 82 mcmol/L Imaging: US 11/17 IMPRESSION: 1. Hepatic steatosis. 2. Hydropic gallbladder with gallbladder sludge. PE: GEN: appears ill LUNGS: NC 3L HEART: RRR ABD: soft, quiet, dark brown stool in rectal tube SKIN: +jaundice NEURO/PSYCH: did not rouse during exam A/P: Hepatic encephalopathy, acute liver failure Leukopenia, coagulopathy, anemia (has transfused), elevated LFTs S/p Shante-en-Y, suspect anastomotic ulcers, NSAID use Fatty liver, hydropic GB, GB sludge Alcohol abuse -- Will review w/ Dr. Moreno - lactulose enemas an issue - on Precedex now - ?try NGT Justicifation of Admission Dx: Justifications for Admission: Justification of Admission Dx: Yes Sepsis: Altered Mental Status Altered Mental Status: Altered Mental Status CHAVA DUKE Nov 20, 2020 13:27
--- NOTE | 2020-11-20 15:27 | RAD ---
EXAM: Abdomen, single view. HISTORY: Nasogastric tube placement. COMPARISON: None. FINDINGS: A frontal view of the abdomen is obtained. There is a nasogastric tube within the proximal stomach. There are prominent air-filled bowel throughout the mid and lower abdomen. IMPRESSION: 1. Nasogastric tube within the stomach. 2. Nonspecific distended air-filled loops of bowel within the mid lower abdomen. Electronically signed by: Celia Mckeon MD (11/20/2020 3:24 PM) [id number]
[2020-11-20] MEDS ORDERED: LACTULOSE 20 GM/30 ML SOLUTION. ONE ×2 (16:09→22:07)
[2020-11-20] MEDS: LACTULOSE 20 GM/30 ML SOLUTION. FT SCH ×2 (16:11→22:10)
--- NOTE | 2020-11-20 16:30 | NUR ---
SS following for discharge planning. SS reviewed pt chart and discussed with pt RN. Pt is from home with spouse and is currently requiring oxygen at three liters nasal canula. COVID19 negative. Pt on IV Zosyn. ETOH. PAT team referral made for assessment and recommendations. SS will continue to follow for discharge planning.
[2020-11-20] MEDS ORDERED: ALBUMIN HUMAN 25% 100 ML IV ONE (22:06)
[2020-11-21] VITALS (26 sets, daily range): BP systolic 119–180; BP diastolic 58–120
--- NOTE | 2020-11-21 00:07 | RAD ---
Study: XR ABDOMEN 1V Indication: Nasogastric tube placement. Comparison: 11/20/2020 at 1459 hours. Findings: Nasogastric tube tip and sidehole are within the stomach. The partially imaged bowel gas pattern is similar to the same day comparison. Incomplete assessment f or pneumoperitoneum. Impression: Enteric tube tip and sidehole are within the stomach. Electronically signed by: PAULA SWENSON MD (11/21/2020 12:05 AM) [facility]
[2020-11-21] MEDS: PANTOPRAZOLE SODIUM IV DRIP 80 MG in IV NORMAL SALINE 100ML 100 ML IV SCH ×2 (00:15→12:30)
[2020-11-21] MEDS: PIPERACILLIN/TAZOBACTAM 3.375 GM in IV NORMAL SALINE 50ML 50 ML IV SCH ×5 (00:16→23:42)
[2020-11-21] MEDS: DEXMEDETOMIDINE 400 MCG in IV NORMAL SALINE 100ML 96 ML IV PRN (05:40)
[2020-11-21 07:04] LABS: CALCIUM 8.2 mg/dL (8.5-10.1); CREATININE 0.8 mg/dL (0.6-1.0); PHOSPHORUS 1.6 mg/dL (2.6-4.7); POTASSIUM 3.2 mmol/L (3.5-5.1)
[2020-11-21 07:07] LABS: DIRECT BILIRUBIN 5.3 mg/dL (0.0-0.2); TOTAL BILIRUBIN 7.8 mg/dL (0.2-1.0); TOTAL PROTEIN 5.1 g/dL (6.4-8.2)
[2020-11-21 07:14] LABS: RED BLOOD COUNT 2.28 x10^6/uL (3.50-5.40)
[2020-11-21 07:46] LABS: HEMATOCRIT 20.6 % (36.0-47.0); HEMOGLOBIN 6.6 g/dL (12.0-15.5)
--- NOTE | 2020-11-21 07:46 | PDOC ---
Infectious Disease Note Subjective: Subjective Patient sedated Afebrile for last 24 hours On 2 L O2 by nasal cannula Discussed with RN Vital Signs: Vital Signs Vital Signs Date Time Temp Pulse Resp B/P (MAP) Pulse Ox O2 Delivery O2 Flow Rate FiO2 11/21/20 06:00 68 23 129/84 (99) 97 Nasal Cannula 4.0 11/21/20 04:00 98.1 98.1 Physical Exam: PHYSICAL EXAM GENERAL: Somnolent, appears comfortable on nasal O2 HEENT: Normocephalic, atraumatic. Sclerae icteric. NG tube placement NECK: Supple. LUNGS: Clear bilaterally. HEART: S1, S2. No murmurs. ABDOMEN: Obese, soft, Bowel sounds present, does not grimace on deep palpation EXTREMITIES: Edema present no cyanosis. GENITOURINARY: Wood in place. Fecal tube in place. Femoral line removed DERMATOLOGIC: No generalized rash. Multiple tattoos. CENTRAL NERVOUS SYSTEM: Somnolent, unable to assess Right upper extremity PICC line with dry blood Medications: Inpatient Meds: Medications reviewed. Labs: Lab Laboratory Tests Test 11/20/20 10:25 11/21/20 06:25 Magnesium Level 2.0 mg/dL (1.8-2.4) Ammonia 82 mcmol/L (11-34) 58 mcmol/L (11-34) Sodium Level 153 mmol/L (136-145) Potassium Level 3.2 mmol/L (3.5-5.1) Chloride Level 116 mmol/L (98-107) Carbon Dioxide Level 24 mmol/L (21-32) Anion Gap 13 (6-14) Blood Urea Nitrogen 12 mg/dL (7-20) Creatinine 0.8 mg/dL (0.6-1.0) Estimated GFR (Cockcroft-Gault) 79.0 Glucose Level 105 mg/dL (70-99) Calcium Level 8.2 mg/dL (8.5-10.1) Phosphorus Level 1.6 mg/dL (2.6-4.7) Total Bilirubin 7.8 mg/dL (0.2-1.0) Direct Bilirubin 5.3 mg/dL (0.0-0.2) Aspartate Amino Transf (AST/SGOT) 153 U/L (15-37) Alanine Aminotransferase (ALT/SGPT) 73 U/L (14-59) Alkaline Phosphatase 117 U/L (46-116) Total Protein 5.1 g/dL (6.4-8.2) Albumin 3.0 g/dL (3.4-5.0) Objective: Assessment: Sepsis Hypothermia Portosystemic encephalopathy Acute liver failure, likely from alcoholism with hyperbilirubinemia. Acute renal failure. Anemia. Coagulopathy. Protein-calorie malnutrition. History of gastroesophageal reflux disease, GI bleed, gastritis, pancreatitis, peptic ulcer disease. History of anxiety and depression. Hydropic gallbladder with hepatic steatosis. Femoral line removed Diarrhea on lactulose Plan: Plan of Care 1. Continue Zosyn 2. Femoral line removed . PICC fiberline supervisor 3. Follow up labs and cultures. 4. Continue supportive care. 5. Follow-up BC 6. Maintain aspiration precaution. 7. GI team input noted,Gen surgery following Awaiting packed RBC Critically ill Prognosis poor Discussed with nursing team DAGMAR MALCOLM MD Nov 21, 2020 07:46
[2020-11-21] MEDS: ELECTROLYTE (ICU) PROTOCOL. MC SCH (09:00)
[2020-11-21] MEDS ORDERED: LACTULOSE 20 GM/30 ML SOLUTION. ONE ×2 (09:04→14:17)
[2020-11-21] MEDS: MULTIVIT INFUSN,ADULT 4,VIT K 10 ML, THIAMINE INJ 100 MG, FOLIC ACID INJ 1 MG in IV NOR... IV SCH (09:17)
[2020-11-21] MEDS: LACTULOSE 20 GM/30 ML SOLUTION. FT SCH ×4 (09:17→21:07)
--- NOTE | 2020-11-21 09:35 | PDOC ---
DATE OF SERVICE DATE: 11/21/20 TIME: 09:28 SUBJECTIVE ROS Stable, No new acute concerns, OBJECTIVE Vital Signs Vital Signs Date Time Temp Pulse Resp B/P (MAP) Pulse Ox O2 Delivery O2 Flow Rate FiO2 11/21/20 06:00 68 23 129/84 (99) 97 Nasal Cannula 4.0 11/21/20 04:00 98.1 98.1 I & 0 Intake and Output 11/21/20 07:00 Intake Total 1440 ml Output Total 590 ml Balance 850 ml Intake IV Total 1388 ml Blood Product IV Normal Saline Flush 52 ml Output Urine Total 590 ml # Bowel Movements 2 PHYSICAL EXAM Physical Exam GENERAL: Somnolent, doesnt open eyes , Morbidly obese HEENT: Normocephalic, atraumatic. Sclerae icteric.On o2 by NC NECK: Supple. LUNGS Decreased at bases, .Non labored HEART: S1, S2. No murmurs. ABDOMEN: Obese, soft, Bowel sounds present, EXTREMITIES: Edema present no cyanosis. GENITOURINARY: Wood in place. Fecal tube in place. DERMATOLOGIC: No generalized rash. Multiple tattoos. CENTRAL NERVOUS SYSTEM: Somnolent, moving all extremities DIAGNOSIS/ASSESSMENT Assessment & Plan EARL/possible ATN . Resolved with IVF , US abd report unremarkable kidneys Non Oliguric currently, supportive care, maintain hydration, Strict I/O HypoKalemia- replace as indicated HyperNatremia- recommend Hypotonic fluid , discussed with nursing Metabolic acidosis POA - resolved Protein-calorie malnutrition./Severe hypoalbuminemia: Anemia: Defer to GI to evaluate and treat, Sepsis Acute liver failure, likely from alcoholism with hyperbilirubinemia. GS recommendations --referral to transplant intelligence engineer when stable;hydrops GB--not a surgical candidate, no surgical plans Morbidly obese COMMENT/RELEVANT DATA Meds Current Medications Medications (Trade) Dose Ordered Sig/Saud Start Time Stop Time Status Last Admin Dose Admin Albumin Human 100 ml @ As Directed STK-MED ONCE 11/20/20 22:06 11/20/20 22:07 DC Atropine Sulfate (ATROPINE 0.5mg SYRINGE) 0.5 mg PRN Q5MIN PRN 11/19/20 10:00 Bisacodyl (Dulcolax Supp) 10 mg PRN DAILY PRN 11/17/20 16:15 Calcium Gluconate 1000 mg/Sodium Chloride 110 ml @ 220 mls/hr 1X ONCE 11/19/20 15:00 11/19/20 15:29 DC 11/19/20 14:29 220 MLS/HR Dexmedetomidine HCl 400 mcg/ Sodium Chloride 100 ml @ 0 mls/hr CONT PRN 11/19/20 10:00 11/21/20 05:40 15 MLS/HR Fentanyl Citrate (Fentanyl 2ml Vial) 25 mcg PRN Q1HR PRN 11/17/20 16:15 11/19/20 09:43 25 MCG Info ([facility] Electrolyte Protocol) 1 ea DAILY 11/18/20 09:00 11/20/20 09:00 1 EA Lactulose (LACTULOSE 300ML for RECTAL) 200 gm Q2HR 11/17/20 18:00 11/20/20 19:16 DC 11/20/20 13:23 200 GM Lactulose (Lactulose) 20 gm STK-MED ONCE 11/21/20 09:04 11/21/20 09:05 DC Lorazepam (Ativan Inj) 4 mg PRN Q1HR PRN 11/19/20 10:00 Lorazepam (Ativan) 2 mg Q6H 11/18/20 08:00 11/19/20 01:14 DC Magnesium Sulfate 50 ml @ 25 mls/hr PRN DAILY PRN 11/19/20 08:30 Multivitamins 10 ml/Thiamine HCl 100 mg/Folic Acid 1 mg/Sodium Chloride 1,011.2 ml @ 100 mls/ hr DAILY 11/18/20 09:00 11/22/20 19:07 11/21/20 09:17 100 MLS/HR Octreotide Acetate 500 mcg/ Sodium Chloride 101 ml @ 10.1 mls/hr CONT PRN 11/17/20 17:30 11/20/20 23:54 10.1 MLS/HR Ondansetron HCl (Zofran) 4 mg PRN Q6HRS PRN 11/17/20 16:15 Pantoprazole Sodium (PROTONIX VIAL for IV PUSH) 80 mg 1X ONCE 11/17/20 18:00 11/17/20 18:01 DC 11/17/20 17:50 80 MG Pantoprazole Sodium 80 mg/ Sodium Chloride 100 ml @ 10 mls/hr Q10H 11/17/20 18:00 11/21/20 00:15 10 MLS/HR Phytonadione (Vitamin K Ampule) 5 mg 1X ONCE 11/18/20 12:15 11/18/20 12:16 DC 11/18/20 12:50 5 MG Piperacillin Sod/ Tazobactam Sod (Zosyn Per Pharmacy) 1 each PRN DAILY PRN 11/18/20 12:00 Piperacillin Sod/ Tazobactam Sod 3.375 gm/Sodium Chloride 50 ml @ 100 mls/hr Q6HRS 11/18/20 12:00 11/21/20 05:41 100 MLS/HR Potassium Chloride/Water 100 ml @ 100 mls/hr Q1H 11/21/20 09:30 11/21/20 11:29 Prochlorperazine Edisylate (Compazine) 5 mg PRN Q6HRS PRN 11/17/20 16:15 Sodium Bicarbonate 75 meq/Sodium Chloride 1,075 ml @ 125 mls/hr Q8H36M 11/17/20 17:00 11/19/20 09:16 DC 11/19/20 05:44 125 MLS/HR Sodium Chloride 500 ml @ 500 mls/hr 1X PRN PRN 11/19/20 10:00 Sodium Chloride (Normal Saline Flush) 3 ml QSHIFT PRN 11/17/20 16:15 Thiamine HCl 100 mg/Dextrose 51 ml @ 100 mls/hr DAILY 11/23/20 09:00 11/27/20 09:31 Lab Laboratory Tests Test 11/20/20 10:25 11/21/20 06:25 Magnesium Level 2.0 mg/dL (1.8-2.4) Ammonia 82 mcmol/L (11-34) 58 mcmol/L (11-34) White Blood Count 6.0 x10^3/uL (4.0-11.0) Red Blood Count 2.28 x10^6/uL (3.50-5.40) Hemoglobin 6.6 g/dL (12.0-15.5) Hematocrit 20.6 % (36.0-47.0) Mean Corpuscular Volume 90 fL (79-100) Mean Corpuscular Hemoglobin 29 pg (25-35) Mean Corpuscular Hemoglobin Concent 32 g/dL (31-37) Red Cell Distribution Width 19.0 % (11.5-14.5) Platelet Count 193 x10^3/uL (140-400) Sodium Level 153 mmol/L (136-145) Potassium Level 3.2 mmol/L (3.5-5.1) Chloride Level 116 mmol/L (98-107) Carbon Dioxide Level 24 mmol/L (21-32) Anion Gap 13 (6-14) Blood Urea Nitrogen 12 mg/dL (7-20) Creatinine 0.8 mg/dL (0.6-1.0) Estimated GFR (Cockcroft-Gault) 79.0 Glucose Level 105 mg/dL (70-99) Calcium Level 8.2 mg/dL (8.5-10.1) Phosphorus Level 1.6 mg/dL (2.6-4.7) Total Bilirubin 7.8 mg/dL (0.2-1.0) Direct Bilirubin 5.3 mg/dL (0.0-0.2) Aspartate Amino Transf (AST/SGOT) 153 U/L (15-37) Alanine Aminotransferase (ALT/SGPT) 73 U/L (14-59) Alkaline Phosphatase 117 U/L (46-116) Total Protein 5.1 g/dL (6.4-8.2) Albumin 3.0 g/dL (3.4-5.0) Results All relevant outside records, renal labs, imaging studies, telemetry/EKG's were reviewed. Justicifation of Admission Dx: Justifications for Admission: Justification of Admission Dx: Yes Sepsis: Altered Mental Status Altered Mental Status: Altered Mental Status KARMA ARELLANO MD Nov 21, 2020 09:35
[2020-11-21] MEDS: POTASSIUM CHLORIDE 20MEQ 100 ML IV SCH ×2 (09:47→11:16)
--- NOTE | 2020-11-21 10:19 | PDOC ---
PROGRESS NOTES Date of Service DATE: 11/21/20 TIME: 10:17 Assessment Metabolic encephalopathy Pancreatitis, liver failure, renal failure, pancreatitis, history of gastric bypass for obesity, sepsis, hypothermia, anemia, coagulopathy, GERD, history of GI bleed and gastritis, history of anxiety and depression, hydropic gallbladder, hepatic steatosis, diarrhea on lactulose Plan No additional neurological studies planned Treat medical diseases On thiamine, dexmedetomidine, and lactulose Objective Vital Signs Date Time Temp Pulse Resp B/P (MAP) Pulse Ox O2 Delivery O2 Flow Rate FiO2 11/21/20 06:00 68 23 129/84 (99) 97 Nasal Cannula 4.0 11/21/20 04:00 98.1 98.1 Intake and Output 11/21/20 07:00 Intake Total 1440 ml Output Total 590 ml Balance 850 ml Intake IV Total 1388 ml Blood Product IV Normal Saline Flush 52 ml Output Urine Total 590 ml # Bowel Movements 2 PHYSICAL EXAM Jaundiced Eyes closed, arouses a little bit to pain, nonverbal, does not follow commands PERRL. EOMI. CN: no focal findings. Muscle tone: normal. Muscle strength: Withdraws slightly to pain DTR: 1+ Plantar reflex: Flexor Gait: not examined in bed. Sensory exam: Not cooperative. Cerebellar: Not cooperative Review of Relevant I have reviewed the following items josue (where applicable) has been applied. Labs Laboratory Tests Test 11/19/20 12:55 11/19/20 14:55 11/20/20 01:57 11/20/20 04:45 Ionized Calcium 1.05 mmol/L (1.13-1.32) Vitamin B12 Level > 2000 pg/mL (247-911) 25-Hydroxy Vitamin D Total 18.0 ng/mL (30-100) Free Thyroxine 0.82 ng/dL (0.76-1.46) Glucose (Fingerstick) 99 mg/dL (70-99) White Blood Count 3.7 x10^3/uL (4.0-11.0) Red Blood Count 2.44 x10^6/uL (3.50-5.40) Hemoglobin 7.1 g/dL (12.0-15.5) Hematocrit 21.9 % (36.0-47.0) Mean Corpuscular Volume 90 fL (79-100) Mean Corpuscular Hemoglobin 29 pg (25-35) Mean Corpuscular Hemoglobin Concent 33 g/dL (31-37) Red Cell Distribution Width 19.3 % (11.5-14.5) Platelet Count 178 x10^3/uL (140-400) Neutrophils (%) (Auto) 70 % (31-73) Lymphocytes (%) (Auto) 17 % (24-48) Monocytes (%) (Auto) 11 % (0-9) Eosinophils (%) (Auto) 2 % (0-3) Basophils (%) (Auto) 0 % (0-3) Neutrophils # (Auto) 2.6 x10^3/uL (1.8-7.7) Lymphocytes # (Auto) 0.6 x10^3/uL (1.0-4.8) Monocytes # (Auto) 0.4 x10^3/uL (0.0-1.1) Eosinophils # (Auto) 0.1 x10^3/uL (0.0-0.7) Basophils # (Auto) 0.0 x10^3/uL (0.0-0.2) Prothrombin Time 24.1 SEC (11.7-14.0) Prothromb Time International Ratio 2.2 (0.8-1.1) Sodium Level 146 mmol/L (136-145) Potassium Level 3.2 mmol/L (3.5-5.1) Chloride Level 110 mmol/L (98-107) Carbon Dioxide Level 25 mmol/L (21-32) Anion Gap 11 (6-14) Blood Urea Nitrogen 13 mg/dL (7-20) Creatinine 0.9 mg/dL (0.6-1.0) Estimated GFR (Cockcroft-Gault) 69.0 BUN/Creatinine Ratio 14 (6-20) Glucose Level 105 mg/dL (70-99) Calcium Level 7.8 mg/dL (8.5-10.1) Phosphorus Level 2.6 mg/dL (2.6-4.7) Total Bilirubin 7.8 mg/dL (0.2-1.0) Aspartate Amino Transf (AST/SGOT) 271 U/L (15-37) Alanine Aminotransferase (ALT/SGPT) 99 U/L (14-59) Alkaline Phosphatase 122 U/L (46-116) Total Protein 4.9 g/dL (6.4-8.2) Albumin 2.5 g/dL (3.4-5.0) Albumin/Globulin Ratio 1.0 (1.0-1.7) Test 11/20/20 10:25 11/21/20 06:25 Magnesium Level 2.0 mg/dL (1.8-2.4) Ammonia 82 mcmol/L (11-34) 58 mcmol/L (11-34) White Blood Count 6.0 x10^3/uL (4.0-11.0) Red Blood Count 2.28 x10^6/uL (3.50-5.40) Hemoglobin 6.6 g/dL (12.0-15.5) Hematocrit 20.6 % (36.0-47.0) Mean Corpuscular Volume 90 fL (79-100) Mean Corpuscular Hemoglobin 29 pg (25-35) Mean Corpuscular Hemoglobin Concent 32 g/dL (31-37) Red Cell Distribution Width 19.0 % (11.5-14.5) Platelet Count 193 x10^3/uL (140-400) Sodium Level 153 mmol/L (136-145) Potassium Level 3.2 mmol/L (3.5-5.1) Chloride Level 116 mmol/L (98-107) Carbon Dioxide Level 24 mmol/L (21-32) Anion Gap 13 (6-14) Blood Urea Nitrogen 12 mg/dL (7-20) Creatinine 0.8 mg/dL (0.6-1.0) Estimated GFR (Cockcroft-Gault) 79.0 Glucose Level 105 mg/dL (70-99) Calcium Level 8.2 mg/dL (8.5-10.1) Phosphorus Level 1.6 mg/dL (2.6-4.7) Total Bilirubin 7.8 mg/dL (0.2-1.0) Direct Bilirubin 5.3 mg/dL (0.0-0.2) Aspartate Amino Transf (AST/SGOT) 153 U/L (15-37) Alanine Aminotransferase (ALT/SGPT) 73 U/L (14-59) Alkaline Phosphatase 117 U/L (46-116) Total Protein 5.1 g/dL (6.4-8.2) Albumin 3.0 g/dL (3.4-5.0) Laboratory Tests Test 11/20/20 10:25 11/21/20 06:25 Magnesium Level 2.0 mg/dL (1.8-2.4) Ammonia 82 mcmol/L (11-34) 58 mcmol/L (11-34) White Blood Count 6.0 x10^3/uL (4.0-11.0) Red Blood Count 2.28 x10^6/uL (3.50-5.40) Hemoglobin 6.6 g/dL (12.0-15.5) Hematocrit 20.6 % (36.0-47.0) Mean Corpuscular Volume 90 fL (79-100) Mean Corpuscular Hemoglobin 29 pg (25-35) Mean Corpuscular Hemoglobin Concent 32 g/dL (31-37) Red Cell Distribution Width 19.0 % (11.5-14.5) Platelet Count 193 x10^3/uL (140-400) Sodium Level 153 mmol/L (136-145) Potassium Level 3.2 mmol/L (3.5-5.1) Chloride Level 116 mmol/L (98-107) Carbon Dioxide Level 24 mmol/L (21-32) Anion Gap 13 (6-14) Blood Urea Nitrogen 12 mg/dL (7-20) Creatinine 0.8 mg/dL (0.6-1.0) Estimated GFR (Cockcroft-Gault) 79.0 Glucose Level 105 mg/dL (70-99) Calcium Level 8.2 mg/dL (8.5-10.1) Phosphorus Level 1.6 mg/dL (2.6-4.7) Total Bilirubin 7.8 mg/dL (0.2-1.0) Direct Bilirubin 5.3 mg/dL (0.0-0.2) Aspartate Amino Transf (AST/SGOT) 153 U/L (15-37) Alanine Aminotransferase (ALT/SGPT) 73 U/L (14-59) Alkaline Phosphatase 117 U/L (46-116) Total Protein 5.1 g/dL (6.4-8.2) Albumin 3.0 g/dL (3.4-5.0) Microbiology 11/19/20 Blood Culture - Preliminary, Resulted NO GROWTH AFTER 1 DAY Medications Current Medications Lorazepam (Ativan Inj) 0.5 mg PRN Q6HRS PRN IVP ANXIETY / AGITATION Last administered on 11/18/20at 18:10; Start 11/17/20 at 16:15; Stop 11/19/20 at 01:14; Status DC Ondansetron HCl (Zofran) 4 mg PRN Q6HRS PRN IVP NAUSEA/VOMITING; Start 11/17/20 at 16:15 Prochlorperazine Edisylate (Compazine) 5 mg PRN Q6HRS PRN IVP NAUSEA/VOMITING, 2ND CHOICE; Start 11/17/20 at 16:15 Info (Icu Electrolyte Protocol) 1 ea DAILY MC Last administered on 11/21/20at 09:00; Start 11/18/20 at 09:00 Sodium Chloride (Normal Saline Flush) 3 ml QSHIFT PRN IV AFTER MEDS AND BLOOD DRAWS; Start 11/17/20 at 16:15 Sodium Chloride 1,000 ml @ 1,000 mls/hr Q1H IV Last administered on 11/17/20at 17:50; Start 11/17/20 at 16:15; Stop 11/17/20 at 17:14; Status DC Fentanyl Citrate (Fentanyl 2ml Vial) 25 mcg PRN Q1HR PRN IV SEVERE PAIN 7-10 Last administered on 11/19/20at 09:43; Start 11/17/20 at 16:15 Lactulose (Lactulose) 20 gm PRN Q12HR PRN PO CONSTIPATION; Start 11/17/20 at 16:15; Stop 11/17/20 at 17:40; Status DC Bisacodyl (Dulcolax Supp) 10 mg PRN DAILY PRN CO CONSTIPATION; Start 11/17/20 at 16:15 Pantoprazole Sodium (PROTONIX VIAL for IV PUSH) 40 mg DAILYAC IVP ; Start 11/18/20 at 07:30; Stop 11/17/20 at 17:40; Status DC Lactulose (LACTULOSE 300ML for RECTAL) 200 gm Q6HRS CO ; Start 11/17/20 at 18:00; Stop 11/17/20 at 17:40; Status DC Sodium Bicarbonate 75 meq/Sodium Chloride 1,075 ml @ 125 mls/hr Q8H36M IV Last administered on 11/19/20at 05:44; Start 11/17/20 at 17:00; Stop 11/19/20 at 09:16; Status DC Pantoprazole Sodium (PROTONIX VIAL for IV PUSH) 80 mg 1X ONCE IVP Last administered on 11/17/20at 17:50; Start 11/17/20 at 18:00; Stop 11/17/20 at 18:01; Status DC Pantoprazole Sodium 80 mg/ Sodium Chloride 100 ml @ 10 mls/hr Q10H IV Last administered on 11/21/20at 00:15; Start 11/17/20 at 18:00 Octreotide Acetate 500 mcg/ Sodium Chloride 101 ml @ 10.1 mls/hr CONT PRN IV SEE I/O RECORD Last administered on 11/20/20at 23:54; Start 11/17/20 at 17:30 Lactulose (LACTULOSE 300ML for RECTAL) 200 gm Q2HR CO Last administered on 11/20/20at 13:23; Start 11/17/20 at 18:00; Stop 11/20/20 at 19:16; Status DC Magnesium Sulfate 50 ml @ 25 mls/hr 1X ONCE IV Last administered on 11/17/20at 18:34; Start 11/17/20 at 18:30; Stop 11/17/20 at 20:29; Status DC Albumin Human 500 ml @ 125 mls/hr PRN DAILY PRN IV HYPOTENSION Last administered on 11/18/20at 01:47; Start 11/18/20 at 00:15 Multivitamins 10 ml/Thiamine HCl 100 mg/Folic Acid 1 mg/Sodium Chloride 1,011.2 ml @ 100 mls/ hr DAILY IV Last administered on 11/21/20at 09:17; Start 11/18/20 at 09:00; Stop 11/22/20 at 19:07 Thiamine HCl 100 mg/Dextrose 51 ml @ 100 mls/hr DAILY IV ; Start 11/23/20 at 09:00; Stop 11/27/20 at 09:31 Lorazepam (Ativan) 2 mg Q6H PO ; Start 11/18/20 at 08:00; Stop 11/19/20 at 01:14; Status DC Lactulose (Lactulose) 30 gm PRN DAILY PRN PO GI SYMPTOMS; Start 11/18/20 at 08:00; Status UNV Lactulose (Lactulose) 30 gm PRN DAILY PRN PO GI SYMPTOMS; Start 11/18/20 at 08:30; Status UNV Piperacillin Sod/ Tazobactam Sod (Zosyn Per Pharmacy) 1 each PRN DAILY PRN MC SEE COMMENTS; Start 11/18/20 at 12:00 Piperacillin Sod/ Tazobactam Sod 3.375 gm/Sodium Chloride 50 ml @ 100 mls/hr Q6HRS IV Last administered on 11/21/20at 05:41; Start 11/18/20 at 12:00 Phytonadione (Vitamin K Ampule) 5 mg 1X ONCE SQ Last administered on 11/18/20at 12:50; Start 11/18/20 at 12:15; Stop 11/18/20 at 12:16; Status DC Lorazepam (Ativan Inj) 2 mg PRN Q1HR PRN IV For CIWA 8-14 Last administered on 11/19/20at 09:42; Start 11/18/20 at 18:15 Potassium Chloride/Water 100 ml @ 100 mls/hr Q1H IV Last administered on 11/19/20at 09:30; Start 11/19/20 at 08:30; Stop 11/19/20 at 10:29; Status DC Magnesium Sulfate 50 ml @ 25 mls/hr PRN DAILY PRN IV for Mag < 1.7 on am labs; Start 11/19/20 at 08:30 Albumin Human 100 ml @ 100 mls/hr TID IV Last administered on 11/20/20at 22:11; Start 11/19/20 at 10:00; Stop 11/20/20 at 21:59; Status DC Lorazepam (Ativan Inj) 4 mg PRN Q1HR PRN IV For CIWA 15 or greater; Start 11/19/20 at 10:00 Dexmedetomidine HCl 400 mcg/ Sodium Chloride 100 ml @ 0 mls/hr CONT PRN IV PER PROTOCOL Last administered on 11/21/20at 05:40; Start 11/19/20 at 10:00 Sodium Chloride 500 ml @ 500 mls/hr 1X PRN PRN IV SEE COMMENTS; Start 11/19/20 at 10:00 Atropine Sulfate (ATROPINE 0.5mg SYRINGE) 0.5 mg PRN Q5MIN PRN IV SEE COMMENTS; Start 11/19/20 at 10:00 Calcium Gluconate 1000 mg/Sodium Chloride 110 ml @ 220 mls/hr 1X ONCE IV ; Start 11/19/20 at 14:00; Stop 11/19/20 at 14:29; Status UNV Calcium Gluconate 1000 mg/Sodium Chloride 110 ml @ 220 mls/hr 1X ONCE IV Last administered on 11/19/20at 14:29; Start 11/19/20 at 15:00; Stop 11/19/20 at 15:29; Status DC Potassium Chloride/Water 100 ml @ 100 mls/hr Q1H IV Last administered on 11/20/20at 16:11; Start 11/20/20 at 10:30; Stop 11/20/20 at 14:29; Status DC Lactulose (Lactulose) 20 gm QID FT Last administered on 11/21/20at 09:17; Start 11/20/20 at 17:00 Lactulose (Lactulose) 20 gm STK-MED ONCE .ROUTE ; Start 11/20/20 at 16:09; Stop 11/20/20 at 16:09; Status DC Albumin Human 100 ml @ As Directed STK-MED ONCE IV ; Start 11/20/20 at 22:06; Stop 11/20/20 at 22:07; Status DC Lactulose (Lactulose) 20 gm STK-MED ONCE .ROUTE ; Start 11/20/20 at 22:07; Stop 11/20/20 at 22:07; Status DC Lactulose (Lactulose) 20 gm STK-MED ONCE .ROUTE ; Start 11/21/20 at 09:04; Stop 11/21/20 at 09:05; Status DC Potassium Chloride/Water 100 ml @ 100 mls/hr Q1H IV Last administered on 11/21/20at 09:47; Start 11/21/20 at 09:30; Stop 11/21/20 at 11:29 Vitals/I & O Vital Sign - Last 24 Hours 11/20/20 11/20/20 11/20/20 11/20/20 12:00 12:00 14:00 16:00 Temp 98.1 98.0 98.1 98.0 Pulse 78 78 62 Resp 28 20 19 B/P (MAP) 139/80 (99) 124/80 (95) 105/54 (71) Pulse Ox 98 98 98 O2 Delivery Nasal Cannula Nasal Cannula Nasal Cannula Nasal Cannula O2 Flow Rate 3.0 3.0 3.0 3.0 11/20/20 11/20/20 11/20/20 11/20/20 16:00 18:00 19:00 20:00 Temp 98.2 98.2 Pulse 84 82 Resp 24 22 B/P (MAP) 92/60 (71) 98/55 (69) Pulse Ox 98 99 O2 Delivery Nasal Cannula Nasal Cannula Nasal Cannula Nasal Cannula O2 Flow Rate 3.0 3.0 3.0 3.0 11/20/20 11/20/20 11/20/20 11/20/20 20:00 21:00 22:00 23:00 Pulse 84 84 84 84 Resp 24 24 24 24 B/P (MAP) 85/55 (65) 159/85 (109) 144/77 (99) 153/89 (110) Pulse Ox 98 98 98 98 O2 Delivery Nasal Cannula Nasal Cannula Nasal Cannula Nasal Cannula O2 Flow Rate 3.0 3.0 3.0 3.0 11/20/20 11/21/20 11/21/20 11/21/20 23:59 00:01 01:00 02:00 Temp 98.3 98.3 Pulse 84 94 92 Resp 24 32 31 B/P (MAP) 155/85 (108) 135/89 (104) 147/93 (111) Pulse Ox 98 94 98 O2 Delivery Nasal Cannula Nasal Cannula Nasal Cannula Nasal Cannula O2 Flow Rate 3.0 3.0 3.0 3.0 11/21/20 11/21/20 11/21/20 11/21/20 03:00 04:00 04:00 05:00 Temp 98.1 98.1 Pulse 98 70 70 Resp 36 27 23 B/P (MAP) 180/93 (122) 147/58 (87) 119/79 (92) Pulse Ox 100 94 98 O2 Delivery Nasal Cannula Nasal Cannula Nasal Cannula Nasal Cannula O2 Flow Rate 3.0 3.0 3.0 4.0 11/21/20 06:00 Pulse 68 Resp 23 B/P (MAP) 129/84 (99) Pulse Ox 97 O2 Delivery Nasal Cannula O2 Flow Rate 4.0 Intake and Output 11/20/20 11/20/20 11/21/20 15:00 23:00 07:00 Intake Total 450 ml 938 ml 52 ml Output Total 200 ml 200 ml 190 ml Balance 250 ml 738 ml -138 ml Justicifation of Admission Dx: Justifications for Admission: Justification of Admission Dx: Yes Sepsis: Altered Mental Status Altered Mental Status: Altered Mental Status MADDISON COLE MD Nov 21, 2020 10:19
--- NOTE | 2020-11-21 12:16 | PDOC ---
[employer] PROGRESS NOTE Date of Service DOS: DATE: 11/21/20 TIME: 12:07 Chief Complaint Chief Complaint Confusion History of Present Illness History of Present Illness 11/21/20 Patient seen and examined in the ICU Chart reviewed Still visibly jaundiced Respiratory rate improved to around 25 today, was around 30-35 yesterday. Anemia improving; at Hgb of 6.6 today. Ordered 1 unit PRBC this morning. Hypothermia resolved; temp today 98.1 WBC count improved to 6. Patient now on PEG tube. Dex for sedation Octreotide drip IV Protonix Continue rectal bag Wood to BSD in place 11/20/20 Patient seen and examined in the ICU Chart reviewed She is visibly jaundiced Very anemic with HBG at 2.44 Hypothermic today with temp of 97.5 F (04:00), up from 94.4 F yesterday (20:00) White blood cells trending downward from normal, today WBC are 3.7 Dex for sedation Octreotide drip in the room IV Protonix going Continue rectal bag Wood to BSD in place 11/19/20 VERY ANEMIC, HYPOTENSIVE 11-18 MELD score on admit is 40, PROGNOSIS VERY GUARDED ECHO pending, cardiology consulted Stools slightly red per RN NH4 pending IONIZED CA 1.05 VIT D LEVEL pending 11/18/20 VERY ANEMIC, HYPOTENSIVE OVERNIGHT ECHO pending, cardiology consulted NH4 pending ID CONSULT NEUROLOGY CONSULT Gen Surg consult 11/17/20 Ms Phipps is a 40yo F w/ PMHx morbid obesity s/p gastric bypass ini 2008, alcohol use disorder, Anxiety, Depression, Hypertension, IBS, Kidney Stones, Pancreatitis, chronic back pain, and smoker who presented to [facility] ED in [place], [place] via EMS for altered mental status. Her called because patient has been on couch has been increasingly confused over the past 5 days. Per EMS report she had a fall a few days ago when she was intoxicated. EKG appears sinus tachycardia, heart rate [address] elevation or depression, no ectopy. Normal intervals. T waves unremarkable. CT chest abdomen pelvis revealed severe hepatic steatosis and cholelithiasis with hydropic gallbladder and gastric bypass, no other acute findings. CT head with no acute hemorrhage. Labs with WBC 7.5, Hb 6.4, platelets 237, Na 130, K 4.3, BUN 10, Cr 2.3, glucose 72, Trop 0, BNP 939, Albumin 1.8, INR 4.9, ammonia 44, bilirubin 11, AST 2744, ALT 400, Alk phos 172, Lipase 42 Given concern for acute liver failure and acute renal failure patient accepted for transfer to [facility] for specialist consultation. Seen bedside with her , patient following very few commands, otherwise drowsy, not oriented, moaning, not articulating well or making meaningful eye contact. notes that sometimes this might happen for a week at a time at home and frightens their 11 and 17 year old children. He notes "it has been a rough year". She [facility] October after a DUI and parole violation of intoxication with alcohol that led to her serving 17 [place] [facility] [place] [place]. She has struggled with substance use disorder, specifically alcohol, according to her since her gastric bypass in 2008, has been previously treated for this as well as pancreatitis. Admitted to ICU for further treatment. Due to the inability to maintain a peripheral IV and concern for potential uncontrollable bleeding in the neck a right femoral central venous catheter was placed for medications, blood transfusion and lab draw purposes for frequent lab draws. Vitals/I&O Vitals/I&O: Vital Signs Date Time Temp Pulse Resp B/P (MAP) Pulse Ox O2 Delivery O2 Flow Rate FiO2 11/21/20 06:00 68 23 129/84 (99) 97 Nasal Cannula 4.0 11/21/20 04:00 98.1 98.1 I & O 11/20/20 11/20/20 11/21/20 15:00 23:00 07:00 Intake Total 450 ml 938 ml 52 ml Output Total 200 ml 200 ml 190 ml Balance 250 ml 738 ml -138 ml Physical Exam Physical Exam: GENERAL: Somnolent, appears comfortable on nasal O2 HEENT: Normocephalic, atraumatic. Sclerae icteric. NG tube placement NECK: Supple. LUNGS: Clear bilaterally. HEART: S1, S2. No murmurs. ABDOMEN: Obese, soft, Bowel sounds present, does not grimace on deep palpation EXTREMITIES: Edema present no cyanosis. GENITOURINARY: Wood in place. Fecal tube in place. Femoral line removed DERMATOLOGIC: No generalized rash. Multiple tattoos. CENTRAL NERVOUS SYSTEM: Somnolent, unable to assess Right upper extremity PICC line with dry blood General: Other (not responsive) Heart: Regular rate Lungs: Clear Abdomen: Soft, Other (obese ) Extremities: No cyanosis Skin: No breakdown, Other (Visibly jaundiced.) Labs Labs: Laboratory Tests Test 11/21/20 06:25 White Blood Count 6.0 x10^3/uL (4.0-11.0) Red Blood Count 2.28 x10^6/uL (3.50-5.40) Hemoglobin 6.6 g/dL (12.0-15.5) Hematocrit 20.6 % (36.0-47.0) Mean Corpuscular Volume 90 fL (79-100) Mean Corpuscular Hemoglobin 29 pg (25-35) Mean Corpuscular Hemoglobin Concent 32 g/dL (31-37) Red Cell Distribution Width 19.0 % (11.5-14.5) Platelet Count 193 x10^3/uL (140-400) Sodium Level 153 mmol/L (136-145) Potassium Level 3.2 mmol/L (3.5-5.1) Chloride Level 116 mmol/L (98-107) Carbon Dioxide Level 24 mmol/L (21-32) Anion Gap 13 (6-14) Blood Urea Nitrogen 12 mg/dL (7-20) Creatinine 0.8 mg/dL (0.6-1.0) Estimated GFR (Cockcroft-Gault) 79.0 Glucose Level 105 mg/dL (70-99) Calcium Level 8.2 mg/dL (8.5-10.1) Phosphorus Level 1.6 mg/dL (2.6-4.7) Total Bilirubin 7.8 mg/dL (0.2-1.0) Direct Bilirubin 5.3 mg/dL (0.0-0.2) Aspartate Amino Transf (AST/SGOT) 153 U/L (15-37) Alanine Aminotransferase (ALT/SGPT) 73 U/L (14-59) Alkaline Phosphatase 117 U/L (46-116) Ammonia 58 mcmol/L (11-34) Total Protein 5.1 g/dL (6.4-8.2) Albumin 3.0 g/dL (3.4-5.0) Assessment and Plan Assessmemt and Plan Assessment Acute metabolic encephalopathy - seems likely hepatic in origin due fatty liver and alcoholic liver disease Acute anemia Acute renal failure Acute liver failure - MELD score on admit is 40 Acute hepatitis - possibly alcoholic etiology Hydropic gallbladder with gallbladder sludge per [place] Alcohol use disorder Plan ICU monitoring CIWA protocol Precedex for sedation Trend labs Continue rectal tube DVT Prophylaxis Continue home medication Full code Prognosis guarded Appreciate subspecialist input Comment Review of Relevant I have reviewed the following items josue (where applicable) has been applied. Medications: Current Medications Medications (Trade) Dose Ordered Sig/Saud Route PRN Reason Start Time Stop Time Status Last Admin Dose Admin Lactulose (Lactulose) 20 gm QID FT 11/20/20 17:00 11/21/20 09:17 Potassium Chloride/Water 100 ml @ 100 mls/hr Q1H IV 11/21/20 09:30 11/21/20 11:29 DC 11/21/20 11:16 Justifications for Admission General Conditions Poss tachycardia?: Yes Justification for admission: Patient has tachycardia (> 100 beats per minute) which is not readily corrected by appropriate treatment within 12 to 24 hours. Poss Metaboilic Acidosis?: Yes Justification for admission: Patient has tachycardia (> 100 beats per minute) or hypotension (SBP < 90 mm Hg) leading to inadequate systemic perfusion as indicated by metabolic acidosis with arterial pH of less than 7.35. Altered mental status?: Yes Justification of admission: Patient has tachycardia (> 100 beats per minute) or hypotension (SBP < 90 mm Hg) leading to inadequate systemic perfusion as indicated by severe/persistent altered mental status. Other Justification MOOK CHRISTOPHER III DO Nov 21, 2020 12:16
--- NOTE | 2020-11-21 12:23 | PDOC ---
Date of Service: DATE: 11/21/20 TIME: 12:17 Objective: Objective: Required transfusion today, turned Precedex down some, taking lactulose through NGT. Wondering if TPN would be okay w/ GI. Vital Signs: Vital Signs Date Time Temp Pulse Resp B/P (MAP) Pulse Ox O2 Delivery O2 Flow Rate FiO2 11/21/20 06:00 68 23 129/84 (99) 97 Nasal Cannula 4.0 11/21/20 04:00 98.1 98.1 Labs: Laboratory Tests Test 11/21/20 06:25 White Blood Count 6.0 x10^3/uL Red Blood Count 2.28 x10^6/uL Hemoglobin 6.6 g/dL Hematocrit 20.6 % Mean Corpuscular Volume 90 fL Mean Corpuscular Hemoglobin 29 pg Mean Corpuscular Hemoglobin Concent 32 g/dL Red Cell Distribution Width 19.0 % Platelet Count 193 x10^3/uL Sodium Level 153 mmol/L Potassium Level 3.2 mmol/L Chloride Level 116 mmol/L Carbon Dioxide Level 24 mmol/L Anion Gap 13 Blood Urea Nitrogen 12 mg/dL Creatinine 0.8 mg/dL Estimated GFR (Cockcroft-Gault) 79.0 Glucose Level 105 mg/dL Calcium Level 8.2 mg/dL Phosphorus Level 1.6 mg/dL Total Bilirubin 7.8 mg/dL Direct Bilirubin 5.3 mg/dL Aspartate Amino Transf (AST/SGOT) 153 U/L Alanine Aminotransferase (ALT/SGPT) 73 U/L Alkaline Phosphatase 117 U/L Ammonia 58 mcmol/L Total Protein 5.1 g/dL Albumin 3.0 g/dL Imaging: KUB 11/20 Impression: Enteric tube tip and sidehole are within the stomach. Echo <Conclusion> The left ventricular systolic function is normal and the ejection fraction is within normal range. The Ejection Fraction is 55-60%. There is grossly normal LV segmental wall motion. Doppler and Color Flow revealed trace to mild tricuspid regurgitation. The PA pressure was estimated at 35 mmHg. PE: GEN: chronically ill LUNGS: NC 4L, clear HEART: RRR ABD: quiet, soft, rectal tube w/ liquid dark stool NEURO/PSYCH: on Precedex A/P: Hepatic encephalopathy, acute liver failure, alcohol history Coagulopathy, anemia (has transfused), elevated LFTs S/p Shante-en-Y, suspect anastomotic ulcers in past, NSAID use Fatty liver, hydropic GB, GB sludge -- Continue lactulose, ?add Xifaxan Will review TPN question w/ Dr. Moreno. ?vit K ?FFP Justicifation of Admission Dx: Justifications for Admission: Justification of Admission Dx: Yes Sepsis: Altered Mental Status Altered Mental Status: Altered Mental Status CHAVA DUKE Nov 21, 2020 12:23
[2020-11-21] MEDS: OCTREOTIDE 500 MCG in IV NORMAL SALINE 100ML 100 ML IV PRN (12:30)
[2020-11-21] MEDS ORDERED: POTASSIUM PHOS,M-BASIC-D-BASIC 15 MMOL in IV NORMAL SALINE 250ML 250 ML IV ONE (14:00)
[2020-11-21] MEDS: TPN PER PHARMACY MC PRN (14:07)
--- NOTE | 2020-11-21 14:12 | NUR ---
Pharmacy TPN Dosing Note S: KELLIE GARCIA is a 40 year old F Currently receiving Central Continuous TPN started 11/21/20 B:Pertinent PMH: NPO, liver failure Height: 5 feet, 5 inches Weight: 106.6 kg Current diet: NPO LABS: Sodium: 153 Potassium: 3.2 Chloride: 116 Calcium: 8.2 Corrected Calcium: 9.00 Magnesium: 2 CO2: 24 SCr: 0.8 Glucose: 105 Albumin: 3.0 AST: 153 ALT: 73 TPN FORMULA: TPN TYPE: Central Continuous AMINO ACIDS: 70 gm DEXTROSE: 250 gm LIPIDS: 20 gm POTASSIUM CHLORIDE: 50 mEq POTASSIUM PHOSPHATE: 13.6 mmol MAGNESIUM: 10 mEq CALCIUM: 10 mEq MULTIPLE VITAMIN: 5 ml TRACE ELEMENTS: 1 ml(s) TPN PLAN: Initiate TPN with macros per electric cutter operator rec's Standard lytes except no sodium and free water added d/t elevated sodium. Thiamine 100mg and folic acid 1mg added to TPN and banana bag d/c'd. R: Begin TPN Will monitor electrolytes, glucose, and tolerance to TPN. Roseann Ferrer RPH, 11/21/20 [id number]
[2020-11-21] MEDS ORDERED: rifAXIMin 550 MG TABLET PO ONE (14:17)
[2020-11-21] MEDS: rifAXIMin 550 MG TABLET PO SCH ×2 (14:18→21:08)
--- NOTE | 2020-11-21 15:53 | NUR ---
SS following up with discharge planning. SS reviewed pt chart and discussed with pt RN. Pt is currently requiring oxygen at three liters nasal canula. COVID19 negative. Pt on IV Zosyn. TPN starting tonight. Pt NPO. NG tube in place. Pt on IV Potassium and IV Protonix. Lactulose through NG tube. CIWA protocol. ETOH. Per RN, pt not stable to be seen by PAT team today. SS will continue to follow for discharge planning.
[2020-11-21] MEDS: PANTOPRAZOLE IV PUSH 40 MG VIAL. IVP SCH (21:07)
[2020-11-21] MEDS ORDERED: [UNRECOGNIZED DRUG - OTHER] IV SCH (22:00)
[2020-11-21] MEDS ORDERED: DEXTROSE 70% IV SCH (22:00)
[2020-11-21] MEDS ORDERED: AMINO ACID IV SCH (22:00)
[2020-11-21] MEDS ORDERED: TOTAL PARENTERAL NUTRITION IV SCH (22:00)
[2020-11-22] VITALS (25 sets, daily range): BP systolic 119–184; BP diastolic 64–109
[2020-11-22] MEDS: PIPERACILLIN/TAZOBACTAM 3.375 GM in IV NORMAL SALINE 50ML 50 ML IV SCH ×4 (05:35→23:35)
[2020-11-22] MEDS: DEXMEDETOMIDINE 400 MCG in IV NORMAL SALINE 100ML 96 ML IV PRN ×2 (05:35→17:30)
[2020-11-22 06:34] LABS: HEMATOCRIT 24.7 % (36.0-47.0); HEMOGLOBIN 7.8 g/dL (12.0-15.5); RED BLOOD COUNT 2.67 x10^6/uL (3.50-5.40); RED CELL DISTRIBUTION WIDTH 19.2 % (11.5-14.5); WHITE BLOOD COUNT 8.1 x10^3/uL (4.0-11.0)
[2020-11-22 06:42] LABS: ALBUMIN 2.9 g/dL (3.4-5.0); CALCIUM 8.7 mg/dL (8.5-10.1); CREATININE 0.8 mg/dL (0.6-1.0); PHOSPHORUS 1.5 mg/dL (2.6-4.7); POTASSIUM 3.5 mmol/L (3.5-5.1)
[2020-11-22 06:45] LABS: ALBUMIN 2.9 g/dL (3.4-5.0); DIRECT BILIRUBIN 5.3 mg/dL (0.0-0.2); TOTAL BILIRUBIN 8.1 mg/dL (0.2-1.0); TOTAL PROTEIN 5.5 g/dL (6.4-8.2)
[2020-11-22] MEDS: PANTOPRAZOLE IV PUSH 40 MG VIAL. IVP SCH ×2 (08:40→21:05)
[2020-11-22] MEDS: LACTULOSE 20 GM/30 ML SOLUTION. FT SCH ×4 (08:40→21:05)
[2020-11-22] MEDS: rifAXIMin 550 MG TABLET PO SCH ×2 (08:45→21:05)
[2020-11-22] MEDS: ELECTROLYTE (ICU) PROTOCOL. MC SCH (09:00)
--- NOTE | 2020-11-22 09:52 | PDOC ---
DATE OF SERVICE DATE: 11/22/20 TIME: 09:52 SUBJECTIVE ROS Stable OBJECTIVE Vital Signs Vital Signs Date Time Temp Pulse Resp B/P (MAP) Pulse Ox O2 Delivery O2 Flow Rate FiO2 11/22/20 06:00 91 26 160/99 (119) 99 Nasal Cannula 4.0 11/22/20 04:00 99.0 99.0 I & 0 Intake and Output 11/22/20 07:00 Intake Total 2377 ml Output Total 1885 ml Balance 492 ml Intake IV Total 2197 ml Blood Product IV Normal Saline Flush 180 ml Output Urine Total 785 ml Stool Total 1100 ml PHYSICAL EXAM Physical Exam GENERAL: mild increased work of breathing Morbidly obese HEENT: Normocephalic, atraumatic. Sclerae icteric.On o2 by NC NECK: Supple. LUNGS Decreased at bases, .Non labored HEART: S1, S2. No murmurs. ABDOMEN: Obese, soft, Bowel sounds present, EXTREMITIES: Edema present no cyanosis. GENITOURINARY: Wood in place. Fecal tube in place. DERMATOLOGIC: No generalized rash. Multiple tattoos. CENTRAL NERVOUS SYSTEM: moving all extremities, not answering DIAGNOSIS/ASSESSMENT Assessment & Plan EARL/possible ATN . Resolved , US abd report unremarkable kidneys Non Oliguric currently, supportive care, maintain hydration, Strict I/O HypoKalemia- replace as indicated HyperNatremia- Currently on TPN, add Free water flushes ( if ok with GI ) . Jaiden RN Metabolic acidosis POA - resolved Protein-calorie malnutrition./Severe hypoalbuminemia: Anemia: Defer to GI to evaluate and treat, Sepsis Acute liver failure, likely from alcoholism with hyperbilirubinemia. 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;hydrops GB--not a surgical candidate, no surgical plans Morbidly obese COMMENT/RELEVANT DATA Meds Current Medications Medications (Trade) Dose Ordered Sig/Saud Start Time Stop Time Status Last Admin Dose Admin Albumin Human 100 ml @ As Directed STK-MED ONCE 11/20/20 22:06 11/20/20 22:07 DC Atropine Sulfate (ATROPINE 0.5mg SYRINGE) 0.5 mg PRN Q5MIN PRN 11/19/20 10:00 Bisacodyl (Dulcolax Supp) 10 mg PRN DAILY PRN 11/17/20 16:15 Calcium Gluconate 1000 mg/Sodium Chloride 110 ml @ 220 mls/hr 1X ONCE 11/19/20 15:00 11/19/20 15:29 DC 11/19/20 14:29 220 MLS/HR Dexmedetomidine HCl 400 mcg/ Sodium Chloride 100 ml @ 0 mls/hr CONT PRN 11/19/20 10:00 11/22/20 05:35 0.2 MLS/HR Fentanyl Citrate (Fentanyl 2ml Vial) 25 mcg PRN Q1HR PRN 11/17/20 16:15 11/19/20 09:43 25 MCG Info (Icu Electrolyte Protocol) 1 ea DAILY 11/18/20 09:00 11/21/20 09:00 1 EA Info (Tpn Per Pharmacy) 1 each PRN DAILY PRN 11/21/20 14:00 11/21/20 14:07 1 EACH Lactulose (LACTULOSE 300ML for RECTAL) 200 gm Q2HR 11/17/20 18:00 11/20/20 19:16 DC 11/20/20 13:23 200 GM Lactulose (Lactulose) 20 gm STK-MED ONCE 11/21/20 14:17 11/21/20 14:17 DC Lorazepam (Ativan Inj) 4 mg PRN Q1HR PRN 11/19/20 10:00 Lorazepam (Ativan) 2 mg Q6H 11/18/20 08:00 11/19/20 01:14 DC Magnesium Sulfate 50 ml @ 25 mls/hr PRN DAILY PRN 11/19/20 08:30 Multivitamins 10 ml/Thiamine HCl 100 mg/Folic Acid 1 mg/Sodium Chloride 1,011.2 ml @ 100 mls/ hr DAILY 11/18/20 09:00 11/21/20 13:58 DC 11/21/20 09:17 100 MLS/HR Octreotide Acetate 500 mcg/ Sodium Chloride 101 ml @ 10.1 mls/hr CONT PRN 11/17/20 17:30 11/21/20 13:52 DC 11/21/20 12:30 10.1 MLS/HR Ondansetron HCl (Zofran) 4 mg PRN Q6HRS PRN 11/17/20 16:15 Pantoprazole Sodium (PROTONIX VIAL for IV PUSH) 40 mg BID 11/21/20 21:00 11/22/20 08:40 40 MG Pantoprazole Sodium 80 mg/ Sodium Chloride 100 ml @ 10 mls/hr Q10H 11/17/20 18:00 11/21/20 13:52 DC 11/21/20 12:30 10 MLS/HR Phytonadione (Vitamin K Ampule) 5 mg 1X ONCE 11/18/20 12:15 11/18/20 12:16 DC 11/18/20 12:50 5 MG Piperacillin Sod/ Tazobactam Sod (Zosyn Per Pharmacy) 1 each PRN DAILY PRN 11/18/20 12:00 Piperacillin Sod/ Tazobactam Sod 3.375 gm/Sodium Chloride 50 ml @ 100 mls/hr Q6HRS 11/18/20 12:00 11/22/20 05:35 100 MLS/HR Potassium Chloride 50 meq/ Potassium Phosphate 13.6 mmol/Magnesium Sulfate 10 meq/ Calcium Gluconate 10 meq/ Multivitamins 5 ml/Zinc/Copper/ Manganese/ Selenium 1 ml/ Thiamine HCl 100 mg/Folic Acid 1 mg/Total Parenteral Nutrition/Amino Acids/Dextrose/ Fat Emuls... 1,800 ml @ 75 mls/hr TPN CONT 11/21/20 22:00 11/22/20 21:59 11/21/20 22:55 75 MLS/HR Potassium Chloride/Water 100 ml @ 100 mls/hr Q1H 11/21/20 09:30 11/21/20 11:29 DC 11/21/20 11:16 100 MLS/HR Potassium Phosphate 15 mmol/ Sodium Chloride 255 ml @ 127.5 mls/ hr 1X ONCE 11/21/20 14:00 11/21/20 15:59 DC 11/21/20 14:19 127.5 MLS/HR Prochlorperazine Edisylate (Compazine) 5 mg PRN Q6HRS PRN 11/17/20 16:15 Rifaximin (Xifaxan) 550 mg STK-MED ONCE 11/21/20 14:17 11/21/20 14:17 DC Sodium Bicarbonate 75 meq/Sodium Chloride 1,075 ml @ 125 mls/hr Q8H36M 11/17/20 17:00 11/19/20 09:16 DC 11/19/20 05:44 125 MLS/HR Sodium Chloride 500 ml @ 500 mls/hr 1X PRN PRN 11/19/20 10:00 Sodium Chloride (Normal Saline Flush) 3 ml QSHIFT PRN 11/17/20 16:15 Thiamine HCl 100 mg/Dextrose 51 ml @ 100 mls/hr DAILY 11/23/20 09:00 11/27/20 09:31 Cancel Lab Laboratory Tests Test 11/22/20 06:10 White Blood Count 8.1 x10^3/uL (4.0-11.0) Red Blood Count 2.67 x10^6/uL (3.50-5.40) Hemoglobin 7.8 g/dL (12.0-15.5) Hematocrit 24.7 % (36.0-47.0) Mean Corpuscular Volume 93 fL (79-100) Mean Corpuscular Hemoglobin 29 pg (25-35) Mean Corpuscular Hemoglobin Concent 32 g/dL (31-37) Red Cell Distribution Width 19.2 % (11.5-14.5) Platelet Count 204 x10^3/uL (140-400) Prothrombin Time 23.0 SEC (11.7-14.0) Prothromb Time International Ratio 2.1 (0.8-1.1) Sodium Level 158 mmol/L (136-145) Potassium Level 3.5 mmol/L (3.5-5.1) Chloride Level 121 mmol/L (98-107) Carbon Dioxide Level 23 mmol/L (21-32) Anion Gap 14 (6-14) Blood Urea Nitrogen 10 mg/dL (7-20) Creatinine 0.8 mg/dL (0.6-1.0) Estimated GFR (Cockcroft-Gault) 79.0 Glucose Level 187 mg/dL (70-99) Calcium Level 8.7 mg/dL (8.5-10.1) Phosphorus Level 1.5 mg/dL (2.6-4.7) Magnesium Level 2.0 mg/dL (1.8-2.4) Total Bilirubin 8.1 mg/dL (0.2-1.0) Direct Bilirubin 5.3 mg/dL (0.0-0.2) Aspartate Amino Transf (AST/SGOT) 137 U/L (15-37) Alanine Aminotransferase (ALT/SGPT) 64 U/L (14-59) Alkaline Phosphatase 124 U/L (46-116) Total Protein 5.5 g/dL (6.4-8.2) Albumin 2.9 g/dL (3.4-5.0) Triglycerides Level 108 mg/dL (0-150) Results All relevant outside records, renal labs, imaging studies, telemetry/EKG's were reviewed. Justicifation of Admission Dx: Justifications for Admission: Justification of Admission Dx: Yes Sepsis: Altered Mental Status Altered Mental Status: Altered Mental Status KARMA ARELLANO MD Nov 22, 2020 09:52
--- NOTE | 2020-11-22 09:58 | PDOC ---
[employer] PROGRESS NOTE Date of Service DOS: DATE: 11/22/20 TIME: 09:53 Chief Complaint Chief Complaint Confusion History of Present Illness History of Present Illness 11/22/20 Patient seen and examined in the ICU Chart reviewed, discussed with nursing and case checker Still visibly jaundiced, encephalopathic, but eyes open. Anemia - 6.8. WBC count up to 81. PEG not tolerated. GI considering TPN Patient started on lactulose + rifaxamin per GI FFP being considered for coagulopathy. 11/21/20 Patient seen and examined in the ICU Chart reviewed Still visibly jaundiced Respiratory rate improved to around 25 today, was around 30-35 yesterday. Anemia improving; at Hgb of 6.6 today. Ordered 1 unit PRBC this morning. Hypothermia resolved; temp today 98.1 WBC count improved to 6. Patient now on PEG tube. Dex for sedation Octreotide drip IV Protonix Continue rectal bag Wood to BSD in place 11/20/20 Patient seen and examined in the ICU Chart reviewed She is visibly jaundiced Very anemic with HBG at 2.44 Hypothermic today with temp of 97.5 F (04:00), up from 94.4 F yesterday (20:00) White blood cells trending downward from normal, today WBC are 3.7 Dex for sedation Octreotide drip in the room IV Protonix going Continue rectal bag Wood to BSD in place 11/19/20 VERY ANEMIC, HYPOTENSIVE 11-18 MELD score on admit is 40, PROGNOSIS VERY GUARDED ECHO pending, cardiology consulted Stools slightly red per RN NH4 pending IONIZED CA 1.05 VIT D LEVEL pending 11/18/20 VERY ANEMIC, HYPOTENSIVE OVERNIGHT ECHO pending, cardiology consulted NH4 pending ID CONSULT NEUROLOGY CONSULT Gen Surg consult 11/17/20 Ms Phipps is a 40yo F w/ PMHx morbid obesity s/p gastric bypass ini 2008, alcohol use disorder, Anxiety, Depression, Hypertension, IBS, Kidney Stones, Pancreatitis, chronic back pain, and smoker who presented to [facility] ED in [place], [place] via EMS for altered mental status. Her called because patient has been on couch has been increasingly confused over the past 5 days. Per EMS report she had a fall a few days ago when she was intoxicated. EKG appears sinus tachycardia, heart rate [address] elevation or depression, no ectopy. Normal intervals. T waves unremarkable. CT chest abdomen pelvis revealed severe hepatic steatosis and cholelithiasis with hydropic gallbladder and gastric bypass, no other acute findings. CT head with no acute hemorrhage. Labs with WBC 7.5, Hb 6.4, platelets 237, Na 130, K 4.3, BUN 10, Cr 2.3, glucose 72, Trop 0, BNP 939, Albumin 1.8, INR 4.9, ammonia 44, bilirubin 11, AST 2744, ALT 400, Alk phos 172, Lipase 42 Given concern for acute liver failure and acute renal failure patient accepted for transfer to [facility] for specialist consultation. Seen bedside with her , patient following very few commands, otherwise drowsy, not oriented, moaning, not articulating well or making meaningful eye contact. notes that sometimes this might happen for a week at a time at home and frightens their 11 and 17 year old children. He notes "it has been a rough year". She was released from incarceration in [facility] last October after a DUI and parole violation of intoxication with alcohol that led to her serving 17 months in federal [place]. She has struggled with substance use disorder, specifically alcohol, according to her since her gastric bypass in 2008, has been previously treated for this as well as pancreatitis. Admitted to ICU for further treatment. Due to the inability to maintain a peripheral IV and concern for potential uncontrollable bleeding in the neck a right femoral central venous catheter was placed for medications, blood transfusion and lab draw purposes for frequent lab draws. Vitals/I&O Vitals/I&O: Vital Signs Date Time Temp Pulse Resp B/P (MAP) Pulse Ox O2 Delivery O2 Flow Rate FiO2 11/22/20 06:00 91 26 160/99 (119) 99 Nasal Cannula 4.0 11/22/20 04:00 99.0 99.0 I & O 11/21/20 11/21/20 11/22/20 15:00 23:00 07:00 Intake Total 250 ml 1310 ml 817 ml Output Total 200 ml 875 ml 810 ml Balance 50 ml 435 ml 7 ml Physical Exam Physical Exam: GENERAL: Somnolent, appears comfortable on nasal O2 HEENT: Normocephalic, atraumatic. Sclerae icteric. NG tube placement NECK: Supple. LUNGS: Clear bilaterally. HEART: S1, S2. No murmurs. ABDOMEN: Obese, soft, Bowel sounds present, does not grimace on deep palpation EXTREMITIES: Edema present no cyanosis. GENITOURINARY: Wood in place. Fecal tube in place. Femoral line removed DERMATOLOGIC: No generalized rash. Multiple tattoos. CENTRAL NERVOUS SYSTEM: Somnolent, unable to assess Right upper extremity PICC line with dry blood General: Other (not responsive) Heart: Regular rate Lungs: Clear Abdomen: Soft, Other (obese ) Extremities: No cyanosis Skin: No breakdown, Other (Visibly jaundiced.) Labs Labs: Laboratory Tests Test 11/22/20 06:10 White Blood Count 8.1 x10^3/uL (4.0-11.0) Red Blood Count 2.67 x10^6/uL (3.50-5.40) Hemoglobin 7.8 g/dL (12.0-15.5) Hematocrit 24.7 % (36.0-47.0) Mean Corpuscular Volume 93 fL (79-100) Mean Corpuscular Hemoglobin 29 pg (25-35) Mean Corpuscular Hemoglobin Concent 32 g/dL (31-37) Red Cell Distribution Width 19.2 % (11.5-14.5) Platelet Count 204 x10^3/uL (140-400) Prothrombin Time 23.0 SEC (11.7-14.0) Prothromb Time International Ratio 2.1 (0.8-1.1) Sodium Level 158 mmol/L (136-145) Potassium Level 3.5 mmol/L (3.5-5.1) Chloride Level 121 mmol/L (98-107) Carbon Dioxide Level 23 mmol/L (21-32) Anion Gap 14 (6-14) Blood Urea Nitrogen 10 mg/dL (7-20) Creatinine 0.8 mg/dL (0.6-1.0) Estimated GFR (Cockcroft-Gault) 79.0 Glucose Level 187 mg/dL (70-99) Calcium Level 8.7 mg/dL (8.5-10.1) Phosphorus Level 1.5 mg/dL (2.6-4.7) Magnesium Level 2.0 mg/dL (1.8-2.4) Total Bilirubin 8.1 mg/dL (0.2-1.0) Direct Bilirubin 5.3 mg/dL (0.0-0.2) Aspartate Amino Transf (AST/SGOT) 137 U/L (15-37) Alanine Aminotransferase (ALT/SGPT) 64 U/L (14-59) Alkaline Phosphatase 124 U/L (46-116) Total Protein 5.5 g/dL (6.4-8.2) Albumin 2.9 g/dL (3.4-5.0) Triglycerides Level 108 mg/dL (0-150) Assessment and Plan Assessmemt and Plan Assessment Acute metabolic encephalopathy - seems likely hepatic in origin due fatty liver and alcoholic liver disease Acute anemia Acute renal failure Acute liver failure - MELD score on admit is 40 Acute hepatitis - possibly alcoholic etiology Hydropic gallbladder with gallbladder sludge per US Alcohol use disorder Plan Continue Lactulose + Rifaxamin Consider FFP for coagulopathy ICU monitoring CIWA protocol Trend labs DVT Prophylaxis Continue home medication Full code Prognosis guarded Appreciate subspecialist input CC time 32 minutes Comment Review of Relevant I have reviewed the following items josue (where applicable) has been applied. Medications: Current Medications Medications (Trade) Dose Ordered Sig/Saud Route PRN Reason Start Time Stop Time Status Last Admin Dose Admin Rifaximin (Xifaxan) 550 mg Q12HR PO 11/21/20 12:30 11/22/20 08:45 Info (Tpn Per Pharmacy) 1 each PRN DAILY PRN MC SEE COMMENTS 11/21/20 14:00 11/21/20 14:07 Potassium Phosphate 15 mmol/ Sodium Chloride 255 ml @ 127.5 mls/ hr 1X ONCE IV 11/21/20 14:00 11/21/20 15:59 DC 11/21/20 14:19 Pantoprazole Sodium (PROTONIX VIAL for IV PUSH) 40 mg BID IVP 11/21/20 21:00 11/22/20 08:40 Potassium Chloride 50 meq/ Potassium Phosphate 13.6 mmol/Magnesium Sulfate 10 meq/ Calcium Gluconate 10 meq/ Multivitamins 5 ml/Zinc/Copper/ Manganese/ Selenium 1 ml/ Thiamine HCl 100 mg/Folic Acid 1 mg/Total Parenteral Nutrition/Amino Acids/Dextrose/ Fat Emuls... 1,800 ml @ 75 mls/hr TPN CONT IV 11/21/20 22:00 11/22/20 21:59 11/21/20 22:55 Justifications for Admission General Conditions Poss tachycardia?: Yes Justification for admission: Patient has tachycardia (> 100 beats per minute) which is not readily corrected by appropriate treatment within 12 to 24 hours. Poss Metaboilic Acidosis?: Yes Justification for admission: Patient has tachycardia (> 100 beats per minute) or hypotension (SBP < 90 mm Hg) leading to inadequate systemic perfusion as indicated by metabolic acidosis with arterial pH of less than 7.35. Altered mental status?: Yes Justification of admission: Patient has tachycardia (> 100 beats per minute) or hypotension (SBP < 90 mm Hg) leading to inadequate systemic perfusion as indicated by severe/persistent altered mental status. Other Justification MOOK CHRISTOPHER III DO Nov 22, 2020 09:58
--- NOTE | 2020-11-22 10:34 | PDOC ---
Infectious Disease Note Subjective: Subjective Patient arousable but does not answer all the questions Febrile at 101 F per RN On 4 L O2 by nasal cannula Discussed with RN Vital Signs: Vital Signs Vital Signs Date Time Temp Pulse Resp B/P (MAP) Pulse Ox O2 Delivery O2 Flow Rate FiO2 11/22/20 06:00 91 26 160/99 (119) 99 Nasal Cannula 4.0 11/22/20 04:00 99.0 99.0 Physical Exam: PHYSICAL EXAM GENERAL: Somnolent, appears comfortable on nasal O2 HEENT: Normocephalic, atraumatic. Sclerae icteric. NG tube placement NECK: Supple. LUNGS: Clear bilaterally. HEART: S1, S2. No murmurs. ABDOMEN: Obese, soft, Bowel sounds present, does not grimace on deep palpation EXTREMITIES: Edema present no cyanosis. GENITOURINARY: Wood in place. Fecal tube in place. Femoral line removed DERMATOLOGIC: No generalized rash. Multiple tattoos. CENTRAL NERVOUS SYSTEM: Somnolent, unable to assess Right upper extremity PICC line with dry blood Medications: Inpatient Meds: Medications reviewed. Labs: Lab Laboratory Tests Test 11/22/20 06:10 White Blood Count 8.1 x10^3/uL (4.0-11.0) Red Blood Count 2.67 x10^6/uL (3.50-5.40) Hemoglobin 7.8 g/dL (12.0-15.5) Hematocrit 24.7 % (36.0-47.0) Mean Corpuscular Volume 93 fL (79-100) Mean Corpuscular Hemoglobin 29 pg (25-35) Mean Corpuscular Hemoglobin Concent 32 g/dL (31-37) Red Cell Distribution Width 19.2 % (11.5-14.5) Platelet Count 204 x10^3/uL (140-400) Prothrombin Time 23.0 SEC (11.7-14.0) Prothromb Time International Ratio 2.1 (0.8-1.1) Sodium Level 158 mmol/L (136-145) Potassium Level 3.5 mmol/L (3.5-5.1) Chloride Level 121 mmol/L (98-107) Carbon Dioxide Level 23 mmol/L (21-32) Anion Gap 14 (6-14) Blood Urea Nitrogen 10 mg/dL (7-20) Creatinine 0.8 mg/dL (0.6-1.0) Estimated GFR (Cockcroft-Gault) 79.0 Glucose Level 187 mg/dL (70-99) Calcium Level 8.7 mg/dL (8.5-10.1) Phosphorus Level 1.5 mg/dL (2.6-4.7) Magnesium Level 2.0 mg/dL (1.8-2.4) Total Bilirubin 8.1 mg/dL (0.2-1.0) Direct Bilirubin 5.3 mg/dL (0.0-0.2) Aspartate Amino Transf (AST/SGOT) 137 U/L (15-37) Alanine Aminotransferase (ALT/SGPT) 64 U/L (14-59) Alkaline Phosphatase 124 U/L (46-116) Total Protein 5.5 g/dL (6.4-8.2) Albumin 2.9 g/dL (3.4-5.0) Triglycerides Level 108 mg/dL (0-150) Objective: Assessment: Sepsis Fever could be YARITZA Portosystemic encephalopathy Acute liver failure, likely from alcoholism with hyperbilirubinemia. Acute renal failure. Anemia. Status post PRBC Coagulopathy. Protein-calorie malnutrition. History of gastroesophageal reflux disease, GI bleed, gastritis, pancreatitis, peptic ulcer disease. History of anxiety and depression. Hydropic gallbladder with hepatic steatosis. Femoral line removed Diarrhea on lactulose Plan: Plan of Care Continue Zosyn Start daptomycin UA, urine culture, blood culture from line and periphery Ultrasound of right upper extremity to rule out DVT, nonvascular ultrasound to rule out hematoma Check C. difficile Follow up labs and cultures. Femoral line been discontinued Continue supportive care. Maintain aspiration precaution. Critically ill Prognosis poor Discussed with nursing team DAGMAR MALCOLM MD Nov 22, 2020 10:34
--- NOTE | 2020-11-22 11:26 | PDOC ---
PROGRESS NOTES Date of Service DATE: 11/22/20 TIME: 11:24 Assessment Metabolic encephalopathy Pancreatitis, liver failure, renal failure, pancreatitis, history of gastric bypass for obesity, sepsis, hypothermia, anemia, coagulopathy, GERD, history of GI bleed and gastritis, history of anxiety and depression, hydropic gallbladder, hepatic steatosis, diarrhea on lactulose Plan No additional neurological studies planned Treat medical diseases On thiamine, dexmedetomidine, and lactulose Subjective None Objective Vital Signs Date Time Temp Pulse Resp B/P (MAP) Pulse Ox O2 Delivery O2 Flow Rate FiO2 11/22/20 06:00 91 26 160/99 (119) 99 Nasal Cannula 4.0 11/22/20 04:00 99.0 99.0 Intake and Output 11/22/20 07:00 Intake Total 2377 ml Output Total 1885 ml Balance 492 ml Intake IV Total 2197 ml Blood Product IV Normal Saline Flush 180 ml Output Urine Total 785 ml Stool Total 1100 ml PHYSICAL EXAM Jaundiced Eyes closed, arouses a little bit to pain, nonverbal, does not follow commands PERRL. EOMI. CN: no focal findings. Muscle tone: normal. Muscle strength: Withdraws slightly to pain DTR: 1+ Plantar reflex: Flexor Gait: not examined in bed. Sensory exam: Not cooperative. Cerebellar: Not cooperative Review of Relevant I have reviewed the following items josue (where applicable) has been applied. Labs Laboratory Tests Test 11/21/20 06:25 11/22/20 06:10 White Blood Count 6.0 x10^3/uL (4.0-11.0) 8.1 x10^3/uL (4.0-11.0) Red Blood Count 2.28 x10^6/uL (3.50-5.40) 2.67 x10^6/uL (3.50-5.40) Hemoglobin 6.6 g/dL (12.0-15.5) 7.8 g/dL (12.0-15.5) Hematocrit 20.6 % (36.0-47.0) 24.7 % (36.0-47.0) Mean Corpuscular Volume 90 fL (79-100) 93 fL (79-100) Mean Corpuscular Hemoglobin 29 pg (25-35) 29 pg (25-35) Mean Corpuscular Hemoglobin Concent 32 g/dL (31-37) 32 g/dL (31-37) Red Cell Distribution Width 19.0 % (11.5-14.5) 19.2 % (11.5-14.5) Platelet Count 193 x10^3/uL (140-400) 204 x10^3/uL (140-400) Sodium Level 153 mmol/L (136-145) 158 mmol/L (136-145) Potassium Level 3.2 mmol/L (3.5-5.1) 3.5 mmol/L (3.5-5.1) Chloride Level 116 mmol/L (98-107) 121 mmol/L (98-107) Carbon Dioxide Level 24 mmol/L (21-32) 23 mmol/L (21-32) Anion Gap 13 (6-14) 14 (6-14) Blood Urea Nitrogen 12 mg/dL (7-20) 10 mg/dL (7-20) Creatinine 0.8 mg/dL (0.6-1.0) 0.8 mg/dL (0.6-1.0) Estimated GFR (Cockcroft-Gault) 79.0 79.0 Glucose Level 105 mg/dL (70-99) 187 mg/dL (70-99) Calcium Level 8.2 mg/dL (8.5-10.1) 8.7 mg/dL (8.5-10.1) Phosphorus Level 1.6 mg/dL (2.6-4.7) 1.5 mg/dL (2.6-4.7) Total Bilirubin 7.8 mg/dL (0.2-1.0) 8.1 mg/dL (0.2-1.0) Direct Bilirubin 5.3 mg/dL (0.0-0.2) 5.3 mg/dL (0.0-0.2) Aspartate Amino Transf (AST/SGOT) 153 U/L (15-37) 137 U/L (15-37) Alanine Aminotransferase (ALT/SGPT) 73 U/L (14-59) 64 U/L (14-59) Alkaline Phosphatase 117 U/L (46-116) 124 U/L (46-116) Ammonia 58 mcmol/L (11-34) Total Protein 5.1 g/dL (6.4-8.2) 5.5 g/dL (6.4-8.2) Albumin 3.0 g/dL (3.4-5.0) 2.9 g/dL (3.4-5.0) Prothrombin Time 23.0 SEC (11.7-14.0) Prothromb Time International Ratio 2.1 (0.8-1.1) Magnesium Level 2.0 mg/dL (1.8-2.4) Triglycerides Level 108 mg/dL (0-150) Laboratory Tests Test 11/22/20 06:10 White Blood Count 8.1 x10^3/uL (4.0-11.0) Red Blood Count 2.67 x10^6/uL (3.50-5.40) Hemoglobin 7.8 g/dL (12.0-15.5) Hematocrit 24.7 % (36.0-47.0) Mean Corpuscular Volume 93 fL (79-100) Mean Corpuscular Hemoglobin 29 pg (25-35) Mean Corpuscular Hemoglobin Concent 32 g/dL (31-37) Red Cell Distribution Width 19.2 % (11.5-14.5) Platelet Count 204 x10^3/uL (140-400) Prothrombin Time 23.0 SEC (11.7-14.0) Prothromb Time International Ratio 2.1 (0.8-1.1) Sodium Level 158 mmol/L (136-145) Potassium Level 3.5 mmol/L (3.5-5.1) Chloride Level 121 mmol/L (98-107) Carbon Dioxide Level 23 mmol/L (21-32) Anion Gap 14 (6-14) Blood Urea Nitrogen 10 mg/dL (7-20) Creatinine 0.8 mg/dL (0.6-1.0) Estimated GFR (Cockcroft-Gault) 79.0 Glucose Level 187 mg/dL (70-99) Calcium Level 8.7 mg/dL (8.5-10.1) Phosphorus Level 1.5 mg/dL (2.6-4.7) Magnesium Level 2.0 mg/dL (1.8-2.4) Total Bilirubin 8.1 mg/dL (0.2-1.0) Direct Bilirubin 5.3 mg/dL (0.0-0.2) Aspartate Amino Transf (AST/SGOT) 137 U/L (15-37) Alanine Aminotransferase (ALT/SGPT) 64 U/L (14-59) Alkaline Phosphatase 124 U/L (46-116) Total Protein 5.5 g/dL (6.4-8.2) Albumin 2.9 g/dL (3.4-5.0) Triglycerides Level 108 mg/dL (0-150) Microbiology 11/19/20 Blood Culture - Preliminary, Resulted NO GROWTH AFTER 2 DAYS Medications Current Medications Lorazepam (Ativan Inj) 0.5 mg PRN Q6HRS PRN IVP ANXIETY / AGITATION Last administered on 11/18/20at 18:10; Start 11/17/20 at 16:15; Stop 11/19/20 at 01:14; Status DC Ondansetron HCl (Zofran) 4 mg PRN Q6HRS PRN IVP NAUSEA/VOMITING; Start 11/17/20 at 16:15 Prochlorperazine Edisylate (Compazine) 5 mg PRN Q6HRS PRN IVP NAUSEA/VOMITING, 2ND CHOICE; Start 11/17/20 at 16:15 Info (Icu Electrolyte Protocol) 1 ea DAILY MC Last administered on 11/21/20at 09 :00; Start 11/18/20 at 09:00 Sodium Chloride (Normal Saline Flush) 3 ml QSHIFT PRN IV AFTER MEDS AND BLOOD DRAWS; Start 11/17/20 at 16:15 Sodium Chloride 1,000 ml @ 1,000 mls/hr Q1H IV Last administered on 11/17/20at 17:50; Start 11/17/20 at 16:15; Stop 11/17/20 at 17:14; Status DC Fentanyl Citrate (Fentanyl 2ml Vial) 25 mcg PRN Q1HR PRN IV SEVERE PAIN 7-10 Last administered on 11/19/20at 09:43; Start 11/17/20 at 16:15 Lactulose (Lactulose) 20 gm PRN Q12HR PRN PO CONSTIPATION; Start 11/17/20 at 16:15; Stop 11/17/20 at 17:40; Status DC Bisacodyl (Dulcolax Supp) 10 mg PRN DAILY PRN LA CONSTIPATION; Start 11/17/20 at 16:15 Pantoprazole Sodium (PROTONIX VIAL for IV PUSH) 40 mg DAILYAC IVP ; Start 11/18/20 at 07:30; Stop 11/17/20 at 17:40; Status DC Lactulose (LACTULOSE 300ML for RECTAL) 200 gm Q6HRS LA ; Start 11/17/20 at 18:00; Stop 11/17/20 at 17:40; Status DC Sodium Bicarbonate 75 meq/Sodium Chloride 1,075 ml @ 125 mls/hr Q8H36M IV Last administered on 11/19/20at 05:44; Start 11/17/20 at 17:00; Stop 11/19/20 at 09:16; Status DC Pantoprazole Sodium (PROTONIX VIAL for IV PUSH) 80 mg 1X ONCE IVP Last administered on 11/17/20at 17:50; Start 11/17/20 at 18:00; Stop 11/17/20 at 18:01; Status DC Pantoprazole Sodium 80 mg/ Sodium Chloride 100 ml @ 10 mls/hr Q10H IV Last administered on 11/21/20at 12:30; Start 11/17/20 at 18:00; Stop 11/21/20 at 13:52; Status DC Octreotide Acetate 500 mcg/ Sodium Chloride 101 ml @ 10.1 mls/hr CONT PRN IV SEE I/O RECORD Last administered on 11/21/20at 12:30; Start 11/17/20 at 17:30; Stop 11/21/20 at 13:52; Status DC Lactulose (LACTULOSE 300ML for RECTAL) 200 gm Q2HR LA Last administered on 11/20/20at 13:23; Start 11/17/20 at 18:00; Stop 11/20/20 at 19:16; Status DC Magnesium Sulfate 50 ml @ 25 mls/hr 1X ONCE IV Last administered on 11/17/20at 18:34; Start 11/17/20 at 18:30; Stop 11/17/20 at 20:29; Status DC Albumin Human 500 ml @ 125 mls/hr PRN DAILY PRN IV HYPOTENSION Last administered on 11/18/20at 01:47; Start 11/18/20 at 00:15 Multivitamins 10 ml/Thiamine HCl 100 mg/Folic Acid 1 mg/Sodium Chloride 1,011.2 ml @ 100 mls/ hr DAILY IV Last administered on 11/21/20at 09:17; Start 11/18/20 at 09:00; Stop 11/21/20 at 13:58; Status DC Thiamine HCl 100 mg/Dextrose 51 ml @ 100 mls/hr DAILY IV ; Start 11/23/20 at 09:00; Stop 11/27/20 at 09:31; Status Cancel Lorazepam (Ativan) 2 mg Q6H PO ; Start 11/18/20 at 08:00; Stop 11/19/20 at 01:14; Status DC Lactulose (Lactulose) 30 gm PRN DAILY PRN PO GI SYMPTOMS; Start 11/18/20 at 08:00; Status UNV Lactulose (Lactulose) 30 gm PRN DAILY PRN PO GI SYMPTOMS; Start 11/18/20 at 08:30; Status UNV Piperacillin Sod/ Tazobactam Sod (Zosyn Per Pharmacy) 1 each PRN DAILY PRN MC SEE COMMENTS; Start 11/18/20 at 12:00 Piperacillin Sod/ Tazobactam Sod 3.375 gm/Sodium Chloride 50 ml @ 100 mls/hr Q6HRS IV Last administered on 11/22/20at 05:35; Start 11/18/20 at 12:00 Phytonadione (Vitamin K Ampule) 5 mg 1X ONCE SQ Last administered on 11/18/20at 12:50; Start 11/18/20 at 12:15; Stop 11/18/20 at 12:16; Status DC Lorazepam (Ativan Inj) 2 mg PRN Q1HR PRN IV For CIWA 8-14 Last administered on 11/19/20at 09:42; Start 11/18/20 at 18:15 Potassium Chloride/Water 100 ml @ 100 mls/hr Q1H IV Last administered on 11/19/20at 09:30; Start 11/19/20 at 08:30; Stop 11/19/20 at 10:29; Status DC Magnesium Sulfate 50 ml @ 25 mls/hr PRN DAILY PRN IV for Mag < 1.7 on am labs; Start 11/19/20 at 08:30 Albumin Human 100 ml @ 100 mls/hr TID IV Last administered on 11/20/20at 22:11; Start 11/19/20 at 10:00; Stop 11/20/20 at 21:59; Status DC Lorazepam (Ativan Inj) 4 mg PRN Q1HR PRN IV For CIWA 15 or greater; Start 11/19/20 at 10:00 Dexmedetomidine HCl 400 mcg/ Sodium Chloride 100 ml @ 0 mls/hr CONT PRN IV PER PROTOCOL Last administered on 11/22/20at 05:35; Start 11/19/20 at 10:00 Sodium Chloride 500 ml @ 500 mls/hr 1X PRN PRN IV SEE COMMENTS; Start 11/19/20 at 10:00 Atropine Sulfate (ATROPINE 0.5mg SYRINGE) 0.5 mg PRN Q5MIN PRN IV SEE COMMENTS; Start 11/19/20 at 10:00 Calcium Gluconate 1000 mg/Sodium Chloride 110 ml @ 220 mls/hr 1X ONCE IV ; Start 11/19/20 at 14:00; Stop 11/19/20 at 14:29; Status UNV Calcium Gluconate 1000 mg/Sodium Chloride 110 ml @ 220 mls/hr 1X ONCE IV Last administered on 11/19/20at 14:29; Start 11/19/20 at 15:00; Stop 11/19/20 at 15:29; Status DC Potassium Chloride/Water 100 ml @ 100 mls/hr Q1H IV Last administered on 11/20/20at 16:11; Start 11/20/20 at 10:30; Stop 11/20/20 at 14:29; Status DC Lactulose (Lactulose) 20 gm QID FT Last administered on 11/22/20at 08:40; Start 11/20/20 at 17:00 Lactulose (Lactulose) 20 gm STK-MED ONCE .ROUTE ; Start 11/20/20 at 16:09; Stop 11/20/20 at 16:09; Status DC Albumin Human 100 ml @ As Directed STK-MED ONCE IV ; Start 11/20/20 at 22:06; Stop 11/20/20 at 22:07; Status DC Lactulose (Lactulose) 20 gm STK-MED ONCE .ROUTE ; Start 11/20/20 at 22:07; Stop 11/20/20 at 22:07; Status DC Lactulose (Lactulose) 20 gm STK-MED ONCE .ROUTE ; Start 11/21/20 at 09:04; Stop 11/21/20 at 09:05; Status DC Potassium Chloride/Water 100 ml @ 100 mls/hr Q1H IV Last administered on 11/21/20at 11:16; Start 11/21/20 at 09:30; Stop 11/21/20 at 11:29; Status DC Rifaximin (Xifaxan) 550 mg Q12HR PO Last administered on 11/22/20at 08:45; Start 11/21/20 at 12:30 Info (Tpn Per Pharmacy) 1 each PRN DAILY PRN MC SEE COMMENTS Last administered on 11/21/20at 14:07; Start 11/21/20 at 14:00 Potassium Phosphate 15 mmol/ Sodium Chloride 255 ml @ 127.5 mls/ hr 1X ONCE IV Last administered on 11/21/20at 14:19; Start 11/21/20 at 14:00; Stop 11/21/20 at 15:59; Status DC Pantoprazole Sodium (PROTONIX VIAL for IV PUSH) 40 mg BID IVP Last administered on 11/22/20at 08:40; Start 11/21/20 at 21:00 Potassium Chloride 50 meq/ Potassium Phosphate 13.6 mmol/Magnesium Sulfate 10 m eq/ Calcium Gluconate 10 meq/ Multivitamins 5 ml/Zinc/Copper/ Manganese/ Selenium 1 ml/ Thiamine HCl 100 mg/Folic Acid 1 mg/Total Parenteral Nutrition/Amino Acids/Dextrose/ Fat Emuls... 1,800 ml @ 75 mls/hr TPN CONT IV Last administered on 11/21/20at 22:55; Start 11/21/20 at 22:00; Stop 11/22/20 at 21:59 Rifaximin (Xifaxan) 550 mg STK-MED ONCE PO ; Start 11/21/20 at 14:17; Stop 11/21/20 at 14:17; Status DC Lactulose (Lactulose) 20 gm STK-MED ONCE .ROUTE ; Start 11/21/20 at 14:17; Stop 11/21/20 at 14:17; Status DC Daptomycin 470 mg/ Sodium Chloride 50 ml @ 100 mls/hr Q24H IV ; Start 11/22/20 at 13:00 Vitals/I & O Vital Sign - Last 24 Hours 11/21/20 11/21/20 11/21/20 11/21/20 12:00 12:00 12:47 13:00 Temp 98.2 98.2 98.2 98.2 Pulse 66 65 64 Resp 24 25 24 B/P (MAP) 135/85 (102) 135/90 140/87 (104) Pulse Ox 93 97 O2 Delivery Nasal Cannula Nasal Cannula Nasal Cannula O2 Flow Rate 4.0 3.0 4.0 11/21/20 11/21/20 11/21/20 11/21/20 13:02 14:00 14:10 15:49 Temp 98.1 98.2 98.1 98.2 Pulse 66 64 75 Resp 23 36 30 B/P (MAP) 140/87 153/87 (109) 153/87 Pulse Ox 97 O2 Delivery Nasal Cannula Nasal Cannula O2 Flow Rate 4.0 3.0 11/21/20 11/21/20 11/21/20 11/21/20 16:00 17:00 18:00 19:00 Temp 98.1 98.1 Pulse 64 64 76 79 Resp 32 24 32 29 B/P (MAP) 150/92 (111) 148/95 (112) 156/120 (132) 161/91 (114) Pulse Ox 98 98 97 97 O2 Delivery Nasal Cannula Nasal Cannula Nasal Cannula Nasal Cannula O2 Flow Rate 4.0 4.0 4.0 4.0 11/21/20 11/21/20 11/21/20 11/21/20 20:00 20:00 21:00 22:00 Temp 98.2 98.2 Pulse 77 64 83 Resp 30 23 26 B/P (MAP) 150/99 (116) 140/97 (111) 164/97 (119) Pulse Ox 97 97 98 O2 Delivery Nasal Cannula Nasal Cannula Nasal Cannula Nasal Cannula O2 Flow Rate 3.0 4.0 4.0 4.0 11/21/20 11/21/20 11/22/20 11/22/20 23:00 23:58 00:00 01:00 Temp 98.5 98.5 Pulse 82 77 83 Resp 26 28 26 B/P (MAP) 149/98 (115) 159/88 (111) 168/98 (121) Pulse Ox 98 98 97 O2 Delivery Nasal Cannula Nasal Cannula Nasal Cannula Nasal Cannula O2 Flow Rate 4.0 3.0 4.0 4.0 11/22/20 11/22/20 11/22/20 11/22/20 02:00 03:00 04:00 04:00 Temp 99.0 99.0 Pulse 84 77 77 Resp 28 28 28 B/P (MAP) 158/89 (112) 119/64 (82) 119/64 (82) Pulse Ox 99 99 99 O2 Delivery Nasal Cannula Nasal Cannula Nasal Cannula Nasal Cannula O2 Flow Rate 4.0 4.0 3.0 4.0 11/22/20 11/22/20 05:00 06:00 Pulse 93 91 Resp 28 26 B/P (MAP) 143/67 (92) 160/99 (119) Pulse Ox 99 99 O2 Delivery Nasal Cannula Nasal Cannula O2 Flow Rate 4.0 4.0 Intake and Output 11/21/20 11/21/20 11/22/20 15:00 23:00 07:00 Intake Total 250 ml 1310 ml 817 ml Output Total 200 ml 875 ml 810 ml Balance 50 ml 435 ml 7 ml Justicifation of Admission Dx: Justifications for Admission: Justification of Admission Dx: Yes Sepsis: Altered Mental Status Altered Mental Status: Altered Mental Status MADDISON COLE MD Nov 22, 2020 11:26
--- NOTE | 2020-11-22 11:30 | NUR ---
SS following up with discharge planning. SS reviewed pt chart and discussed with pt RN. Pt is currently requiring oxygen at four liters nasal canula. COVID19 negative. Pt having temperatures today. Pt on IV Zosyn and IV Daptomycin. TPN. Pt NPO. NG tube in place. Lactulose through NG tube. CIWA protocol. ETOH. Per RN, pt not stable to be seen by PAT team today. SS will continue to follow for discharge planning.
[2020-11-22] MEDS: TPN PER PHARMACY MC PRN (12:38)
--- NOTE | 2020-11-22 12:38 | RAD ---
EXAM: Right upper extremity sonogram. HISTORY: Pain and swelling status post PICC placement. TECHNIQUE: Sonographic imaging of the right upper extremity at the site of reported pain and swelling was performed. COMPARISON: None. FINDINGS: There is no hematoma, abscess or mass at the site of probable concern. IMPRESSION: Unremarkable right upper extremity sonogram at the site of palpable concern. Continued cl inical follow-up palpable abnormalities is recommended. Cross-sectional imaging can be considered if there is concern for a sonographically occult lesion. Electronically signed by: Celia Mckeon MD (11/22/2020 12:36 PM) [id number]
--- NOTE | 2020-11-22 12:39 | NUR ---
Pharmacy TPN Dosing Note S: KELLIE GARCIA is a 40 year old F Currently receiving Central Continuous TPN started 11/21/20 B:Pertinent PMH: NPO, liver failure Height: 5 feet, 5 inches Weight: 109.231654 kg Current diet: NPO LABS: Sodium: 158 Potassium: 3.5 Chloride: 121 Calcium: 8.7 Corrected Calcium: 9.58 Magnesium: 2 CO2: 23 SCr: 0.8 Glucose: 187 Albumin: 2.9 AST: 137 ALT: 64 TPN FORMULA: TPN TYPE: Central Continuous AMINO ACIDS: 70 gm DEXTROSE: 250 gm LIPIDS: -- gm SODIUM CHLORIDE: - mEq SODIUM ACETATE: -- mEq SODIUM PHOSPHATE: -- mmol POTASSIUM CHLORIDE: -- mEq POTASSIUM ACETATE: 50 mEq POTASSIUM PHOSPHATE: 18 mmol MAGNESIUM: 10 mEq CALCIUM: 10 mEq INSULIN: units MULTIPLE VITAMIN: 5 ml TRACE ELEMENTS: 1 ml(s) TPN PLAN: Na 158, cont holding Na from TPN and adding free water flushes per Nephro. Chloride elevated, change KCl to KAce in TPN. Phos 1.5- replaced with KPhos 15 mmol IVPB x 1 dose and increase KPhos to 18 mmol in TPN. Lipids removed from TPN per RD recommendations. -BMP, Mag and Phos in AM. R: Change TPN as noted above. Will monitor electrolytes, glucose, and tolerance to TPN. DAYLIN CHAPARRO [facility], 11/22/20 [id number]
[2020-11-22] MEDS: DAPTOmycin (GENERIC) IVPB 470 MG in IV NORMAL SALINE 50ML 50 ML IV SCH (13:21)
[2020-11-22] MEDS ORDERED: POTASSIUM PHOS,M-BASIC-D-BASIC 15 MMOL in IV NORMAL SALINE 250ML 250 ML IV ONE (14:00)
--- NOTE | 2020-11-22 14:35 | PDOC ---
Date of Service: DATE: 11/22/20 TIME: 14:30 Objective: Objective: Called by nurse earlier - gave okay for NG water flushes. Had a fever, atbx added, this morning woke up a little and said hello, now w/ more Precedex, ?increased work of breathing - better now. reports 1 pint daily drinker. On TPN, Xifaxan, lactulose, PPI. Vital Signs: Vital Signs Date Time Temp Pulse Resp B/P (MAP) Pulse Ox O2 Delivery O2 Flow Rate FiO2 11/22/20 06:00 91 26 160/99 (119) 99 Nasal Cannula 4.0 11/22/20 04:00 99.0 99.0 Labs: Laboratory Tests Test 11/22/20 06:10 White Blood Count 8.1 x10^3/uL Red Blood Count 2.67 x10^6/uL Hemoglobin 7.8 g/dL Hematocrit 24.7 % Mean Corpuscular Volume 93 fL Mean Corpuscular Hemoglobin 29 pg Mean Corpuscular Hemoglobin Concent 32 g/dL Red Cell Distribution Width 19.2 % Platelet Count 204 x10^3/uL Prothrombin Time 23.0 SEC Prothromb Time International Ratio 2.1 Sodium Level 158 mmol/L Potassium Level 3.5 mmol/L Chloride Level 121 mmol/L Carbon Dioxide Level 23 mmol/L Anion Gap 14 Blood Urea Nitrogen 10 mg/dL Creatinine 0.8 mg/dL Estimated GFR (Cockcroft-Gault) 79.0 Glucose Level 187 mg/dL Calcium Level 8.7 mg/dL Phosphorus Level 1.5 mg/dL Magnesium Level 2.0 mg/dL Total Bilirubin 8.1 mg/dL Direct Bilirubin 5.3 mg/dL Aspartate Amino Transf (AST/SGOT) 137 U/L Alanine Aminotransferase (ALT/SGPT) 64 U/L Alkaline Phosphatase 124 U/L Total Protein 5.5 g/dL Albumin 2.9 g/dL Triglycerides Level 108 mg/dL BLOOD CULTURE Preliminary NO GROWTH AFTER 3 DAYS Imaging: RUE US IMPRESSION: Unremarkable right upper extremity sonogram at the site of palpable concern. Continued clinical follow-up palpable abnormalities is recommended. Cross-sectional imaging can be considered if there is concern for a sonographically occult lesion. PE: GEN: ill LUNGS: NC HEART: RRR ABD: obese, soft, rectal tube dark brown liquid stool NEURO/PSYCH: on Precedex, didn't arouse A/P: Hepatic encephalopathy, acute liver failure, alcohol abuse Coagulopathy (better), anemia (better with transfusion), elevated LFTs (bit worse) S/p Shante-en-Y, suspect h/o anastomotic ulcers Hypernatremia -- Continue support, recheck ammonia along w/ other labs in a.m. Note C Diff also ordered. Justicifation of Admission Dx: Justifications for Admission: Justification of Admission Dx: Yes Sepsis: Altered Mental Status Altered Mental Status: Altered Mental Status CHAVA DUKE Nov 22, 2020 14:35
[2020-11-22] MEDS ORDERED: POTASSIUM CHLORIDE 20MEQ 100 ML IV ONE (16:00)
[2020-11-22] MEDS ORDERED: DEXTROSE 70% IV SCH (22:00)
[2020-11-22] MEDS ORDERED: AMINO ACID IV SCH (22:00)
[2020-11-22] MEDS ORDERED: TOTAL PARENTERAL NUTRITION IV SCH (22:00)
[2020-11-22] MEDS ORDERED: [UNRECOGNIZED DRUG - OTHER] IV SCH (22:00)
[2020-11-23] VITALS (23 sets, daily range): BP systolic 119–175; BP diastolic 64–98
[2020-11-23] MEDS: DEXMEDETOMIDINE 400 MCG in IV NORMAL SALINE 100ML 96 ML IV PRN ×4 (00:42→18:18)
[2020-11-23] MEDS: PIPERACILLIN/TAZOBACTAM 3.375 GM in IV NORMAL SALINE 50ML 50 ML IV SCH ×3 (06:01→16:53)
[2020-11-23 06:43] LABS: ALBUMIN 2.8 g/dL (3.4-5.0); CALCIUM 8.9 mg/dL (8.5-10.1); CREATININE 0.6 mg/dL (0.6-1.0); GFR 110.2; PHOSPHORUS 2.2 mg/dL (2.6-4.7); POTASSIUM 3.8 mmol/L (3.5-5.1)
[2020-11-23 06:45] LABS: HEMATOCRIT 24.2 % (36.0-47.0); HEMOGLOBIN 7.8 g/dL (12.0-15.5); RED BLOOD COUNT 2.61 x10^6/uL (3.50-5.40); RED CELL DISTRIBUTION WIDTH 20.2 % (11.5-14.5); WHITE BLOOD COUNT 7.8 x10^3/uL (4.0-11.0)
[2020-11-23 06:47] LABS: ALBUMIN 2.9 g/dL (3.4-5.0); DIRECT BILIRUBIN 4.4 mg/dL (0.0-0.2); TOTAL BILIRUBIN 6.6 mg/dL (0.2-1.0); TOTAL PROTEIN 5.4 g/dL (6.4-8.2)
--- NOTE | 2020-11-23 07:39 | PDOC ---
Infectious Disease Note Subjective: Subjective Fever pattern improved Patient does not respond to any questions Discussed with RN Vital Signs: Vital Signs Vital Signs Date Time Temp Pulse Resp B/P (MAP) Pulse Ox O2 Delivery O2 Flow Rate FiO2 11/23/20 07:00 78 30 165/97 (119) 98 Nasal Cannula 4.0 11/23/20 04:00 98.9 98.9 Physical Exam: PHYSICAL EXAM GENERAL: Somnolent, mild respiratory distress HEENT: Normocephalic, atraumatic. Sclerae icteric. NG tube placement NECK: Supple. LUNGS: Clear bilaterally. HEART: S1, S2. No murmurs. ABDOMEN: Obese, soft, Bowel sounds present, does not grimace on deep palpation EXTREMITIES: Edema present no cyanosis. GENITOURINARY: Wood in place. Fecal tube in place. Femoral line removed DERMATOLOGIC: No generalized rash. Multiple tattoos. CENTRAL NERVOUS SYSTEM: Somnolent, unable to assess Right upper extremity PICC line with dry blood Medications: Inpatient Meds: Medications reviewed. Labs: Lab Laboratory Tests Test 11/22/20 12:30 11/23/20 06:00 11/23/20 06:25 Clostridium difficile Toxin (PCR) Negative (NEGATIVE) Sodium Level 155 mmol/L (136-145) Potassium Level 3.8 mmol/L (3.5-5.1) Chloride Level 121 mmol/L (98-107) Carbon Dioxide Level 25 mmol/L (21-32) Anion Gap 9 (6-14) Blood Urea Nitrogen 10 mg/dL (7-20) Creatinine 0.6 mg/dL (0.6-1.0) Estimated GFR (Cockcroft-Gault) 110.2 Glucose Level 185 mg/dL (70-99) Calcium Level 8.9 mg/dL (8.5-10.1) Phosphorus Level 2.2 mg/dL (2.6-4.7) Magnesium Level 2.1 mg/dL (1.8-2.4) Total Bilirubin 6.6 mg/dL (0.2-1.0) Direct Bilirubin 4.4 mg/dL (0.0-0.2) Aspartate Amino Transf (AST/SGOT) 111 U/L (15-37) Alanine Aminotransferase (ALT/SGPT) 55 U/L (14-59) Alkaline Phosphatase 100 U/L (46-116) Total Protein 5.4 g/dL (6.4-8.2) Albumin 2.9 g/dL (3.4-5.0) White Blood Count 7.8 x10^3/uL (4.0-11.0) Red Blood Count 2.61 x10^6/uL (3.50-5.40) Hemoglobin 7.8 g/dL (12.0-15.5) Hematocrit 24.2 % (36.0-47.0) Mean Corpuscular Volume 93 fL (79-100) Mean Corpuscular Hemoglobin 30 pg (25-35) Mean Corpuscular Hemoglobin Concent 32 g/dL (31-37) Red Cell Distribution Width 20.2 % (11.5-14.5) Platelet Count 200 x10^3/uL (140-400) Ammonia 36 mcmol/L (11-34) Objective: Assessment: Sepsis Fever could be YARITZA Portosystemic encephalopathy Acute liver failure, likely from alcoholism with hyperbilirubinemia. Acute renal failure. Anemia. Status post PRBC Coagulopathy. Protein-calorie malnutrition. History of gastroesophageal reflux disease, GI bleed, gastritis, pancreatitis, peptic ulcer disease. History of anxiety and depression. Hydropic gallbladder with hepatic steatosis. Femoral line removed Diarrhea on lactulose Plan: Plan of Care Continue Zosyn/ daptomycin Doppler ultrasound of right upper extremity rule out DVT C. difficile negative Follow up labs and cultures. Femoral line been discontinued Continue supportive care. Maintain aspiration precaution. Critically ill Prognosis poor Discussed with nursing team DAGMAR MALCOLM MD Nov 23, 2020 07:39
[2020-11-23] MEDS: ELECTROLYTE (ICU) PROTOCOL. MC SCH (08:14)
[2020-11-23] MEDS: PANTOPRAZOLE IV PUSH 40 MG VIAL. IVP SCH ×2 (08:22→20:55)
[2020-11-23] MEDS: LACTULOSE 20 GM/30 ML SOLUTION. FT SCH ×4 (08:23→20:55)
[2020-11-23] MEDS: fentaNYL PF VIAL 100 MCG/2 ML VIAL IV PRN ×4 (08:23→21:20)
[2020-11-23] MEDS: rifAXIMin 550 MG TABLET PO SCH ×2 (08:23→20:55)
[2020-11-23 08:29] LABS: BASE EXCESS ABG -3 mmol/L (-3-3); HCO3 ABG 20 mmol/L (21-28); PCO2 ABG 27 mmHg (35-46); PO2 ABG 82 mmHg (75-108); SAT O2 ABG 96 % (92-99)
[2020-11-23 08:40] LABS: FIO2 ABG 4L NC
[2020-11-23] MEDS ORDERED: THIAMINE INJ 100 MG in IV DEXTROSE 5% 50 ML IV SCH (09:00)
[2020-11-23] MEDS ORDERED: ALBUTEROL SULFATE 2.5 MG/3 ML NEBU. NEB PRN (09:15)
[2020-11-23] MEDS: TPN PER PHARMACY MC PRN (09:27)
--- NOTE | 2020-11-23 09:28 | NUR ---
Pharmacy TPN Dosing Note S: KELLIE GARCIA is a 40 year old F Currently receiving Central Continuous TPN started 11/21/20 B:Pertinent PMH: NPO, liver failure Height: 5 feet, 5 inches Weight: 110.0 kg Current diet: NPO LABS: Sodium: 155 Potassium: 3.8 Chloride: 121 Calcium: 8.9 Corrected Calcium: 9.78 Magnesium: 2.1 CO2: 25 SCr: 0.6 Glucose: 185 Albumin: 2.9 AST: 111 ALT: 55 TPN FORMULA: TPN TYPE: Central Continuous AMINO ACIDS: 70 gm DEXTROSE: 250 gm POTASSIUM ACETATE: 50 mEq POTASSIUM PHOSPHATE: 21 mmol MAGNESIUM: 10 mEq CALCIUM: 10 mEq MULTIPLE VITAMIN: 5 ml TRACE ELEMENTS: 1 ml(s) TPN PLAN: Na improved, Cl stable. Phos 2.2- Kphos 15 mmol IVPB x 1 dose again today, increase to Kphos 21 mmol in TPN tonight. Continue rest of TPN the same. -Renal panel and Mag ordered for AM R: Change TPN as noted above. Will monitor electrolytes, glucose, and tolerance to TPN. DAYLIN CHAPARRO [facility], 11/23/20 0905
--- NOTE | 2020-11-23 09:40 | PDOC ---
DATE OF SERVICE DATE: 11/23/20 TIME: 09:34 SUBJECTIVE ROS Stable OBJECTIVE Vital Signs Vital Signs Date Time Temp Pulse Resp B/P (MAP) Pulse Ox O2 Delivery O2 Flow Rate FiO2 11/23/20 09:00 71 28 158/89 (112) 100 Nasal Cannula 4.0 11/23/20 08:00 98.2 98.2 I & 0 Intake and Output 11/23/20 07:00 Intake Total 3114 ml Output Total 1325 ml Balance 1789 ml Intake IV Total 2564 ml Other 550 ml Output Urine Total 825 ml Stool Total 500 ml PHYSICAL EXAM Physical Exam GENERAL: Morbidly obese , NAD HEENT: Normocephalic, atraumatic. Sclerae icteric.On o2 by NC NECK: Supple. LUNGS Decreased at bases, .Non labored HEART: S1, S2. No murmurs. ABDOMEN: Obese, soft, Bowel sounds present, EXTREMITIES: Edema present no cyanosis. GENITOURINARY: Wood in place. Fecal tube in place. DERMATOLOGIC: No generalized rash. Multiple tattoos. CENTRAL NERVOUS SYSTEM: moving all extremities,on precedex DIAGNOSIS/ASSESSMENT Assessment & Plan EARL/possible ATN . Resolved , US abd report unremarkable kidneys Non Oliguric currently, supportive care, maintain hydration, Strict I/O HypoKalemia- replace as indicated HyperNatremia- Currently on TPN, added Free water flushes , Na improving Metabolic acidosis POA - resolved Protein-calorie malnutrition./Severe hypoalbuminemia: Anemia: Defer to GI to evaluate and treat, Sepsis Acute liver failure, likely from alcoholism with hyperbilirubinemia. GS recommendations --referral to transplant molder fitting when stable;hydrops GB--not a surgical candidate, no surgical plans Morbidly obese COMMENT/RELEVANT DATA Meds Current Medications Medications (Trade) Dose Ordered Sig/Saud Start Time Stop Time Status Last Admin Dose Admin Albumin Human 100 ml @ As Directed STK-MED ONCE 11/20/20 22:06 11/20/20 22:07 DC Albuterol Sulfate (Ventolin Neb Soln) 2.5 mg PRN Q4HRS PRN 11/23/20 09:15 Atropine Sulfate (ATROPINE 0.5mg SYRINGE) 0.5 mg PRN Q5MIN PRN 11/19/20 10:00 Bisacodyl (Dulcolax Supp) 10 mg PRN DAILY PRN 11/17/20 16:15 Calcium Gluconate 1000 mg/Sodium Chloride 110 ml @ 220 mls/hr 1X ONCE 11/19/20 15:00 11/19/20 15:29 DC 11/19/20 14:29 220 MLS/HR Daptomycin 470 mg/ Sodium Chloride 50 ml @ 100 mls/hr Q24H 11/22/20 13:00 11/22/20 13:21 100 MLS/HR Dexmedetomidine HCl 400 mcg/ Sodium Chloride 100 ml @ 0 mls/hr CONT PRN 11/19/20 10:00 11/23/20 08:23 10 MLS/HR Fentanyl Citrate (Fentanyl 2ml Vial) 25 mcg PRN Q1HR PRN 11/17/20 16:15 11/23/20 08:23 25 MCG Info ([facility]cu Electrolyte Protocol) 1 ea DAILY 11/18/20 09:00 11/23/20 08:14 1 EA Info (Tpn Per Pharmacy) 1 each PRN DAILY PRN 11/21/20 14:00 11/23/20 09:27 1 EACH Lactulose (LACTULOSE 300ML for RECTAL) 200 gm Q2HR 11/17/20 18:00 11/20/20 19:16 DC 11/20/20 13:23 200 GM Lactulose (Lactulose) 20 gm STK-MED ONCE 11/21/20 14:17 11/21/20 14:17 DC Lorazepam (Ativan Inj) 4 mg PRN Q1HR PRN 11/19/20 10:00 Lorazepam (Ativan) 2 mg Q6H 11/18/20 08:00 11/19/20 01:14 DC Magnesium Sulfate 50 ml @ 25 mls/hr PRN DAILY PRN 11/19/20 08:30 Multivitamins 10 ml/Thiamine HCl 100 mg/Folic Acid 1 mg/Sodium Chloride 1,011.2 ml @ 100 mls/ hr DAILY 11/18/20 09:00 11/21/20 13:58 DC 11/21/20 09:17 100 MLS/HR Octreotide Acetate 500 mcg/ Sodium Chloride 101 ml @ 10.1 mls/hr CONT PRN 11/17/20 17:30 11/21/20 13:52 DC 11/21/20 12:30 10.1 MLS/HR Ondansetron HCl (Zofran) 4 mg PRN Q6HRS PRN 11/17/20 16:15 Pantoprazole Sodium (PROTONIX VIAL for IV PUSH) 40 mg BID 11/21/20 21:00 11/23/20 08:22 40 MG Pantoprazole Sodium 80 mg/ Sodium Chloride 100 ml @ 10 mls/hr Q10H 11/17/20 18:00 11/21/20 13:52 DC 11/21/20 12:30 10 MLS/HR Phytonadione (Vitamin K Ampule) 5 mg 1X ONCE 11/18/20 12:15 11/18/20 12:16 DC 11/18/20 12:50 5 MG Piperacillin Sod/ Tazobactam Sod (Zosyn Per Pharmacy) 1 each PRN DAILY PRN 11/18/20 12:00 Piperacillin Sod/ Tazobactam Sod 3.375 gm/Sodium Chloride 50 ml @ 100 mls/hr Q6HRS 11/18/20 12:00 11/23/20 06:01 100 MLS/HR Potassium Chloride 50 meq/ Potassium Phosphate 13.6 mmol/Magnesium Sulfate 10 meq/ Calcium Gluconate 10 meq/ Multivitamins 5 ml/Zinc/Copper/ Manganese/ Selenium 1 ml/ Thiamine HCl 100 mg/Folic Acid 1 mg/Total Parenteral Nutrition/Amino Acids/Dextrose/ Fat Emuls... 1,800 ml @ 75 mls/hr TPN CONT 11/21/20 22:00 11/22/20 21:59 DC 11/21/20 22:55 75 MLS/HR Potassium Chloride/Water 100 ml @ 100 mls/hr 1X ONCE 11/22/20 16:00 11/22/20 16:59 DC 11/22/20 15:20 100 MLS/HR Potassium Phosphate 15 mmol/ Sodium Chloride 255 ml @ 127.5 mls/ hr 1X ONCE 11/23/20 11:00 11/23/20 12:59 Potassium Acetate 50 meq/Potassium Phosphate 18 mmol/ Magnesium Sulfate 10 meq/Calcium Gluconate 10 meq/ Multivitamins 5 ml/Zinc/Copper/ Manganese/ Selenium 1 ml/ Thiamine HCl 100 mg/Folic Acid 1 mg/Total Parenteral Nutrition/Amino Acids/Dextrose 1,800 ml @ 75 mls/hr TPN CONT 11/22/20 22:00 11/23/20 21:59 11/22/20 21:37 75 MLS/HR Potassium Acetate 50 meq/Potassium Phosphate 21 mmol/ Magnesium Sulfate 10 meq/Calcium Gluconate 10 meq/ Multivitamins 5 ml/Zinc/Copper/ Manganese/ Selenium 1 ml/ Thiamine HCl 100 mg/Folic Acid 1 mg/Total Parenteral Nutrition/Amino Acids/Dextrose 1,800 ml @ 75 mls/hr TPN CONT 11/23/20 22:00 11/24/20 21:59 Prochlorperazine Edisylate (Compazine) 5 mg PRN Q6HRS PRN 11/17/20 16:15 Rifaximin (Xifaxan) 550 mg STK-MED ONCE 11/21/20 14:17 11/21/20 14:17 DC Sodium Bicarbonate 75 meq/Sodium Chloride 1,075 ml @ 125 mls/hr Q8H36M 11/17/20 17:00 11/19/20 09:16 DC 11/19/20 05:44 125 MLS/HR Sodium Chloride 500 ml @ 500 mls/hr 1X PRN PRN 11/19/20 10:00 Sodium Chloride (Normal Saline Flush) 3 ml QSHIFT PRN 11/17/20 16:15 Thiamine HCl 100 mg/Dextrose 51 ml @ 100 mls/hr DAILY 11/23/20 09:00 11/27/20 09:31 Cancel Lab Laboratory Tests Test 11/22/20 12:30 11/23/20 06:00 11/23/20 06:25 11/23/20 07:35 Clostridium difficile Toxin (PCR) Negative (NEGATIVE) Sodium Level 155 mmol/L (136-145) Potassium Level 3.8 mmol/L (3.5-5.1) Chloride Level 121 mmol/L (98-107) Carbon Dioxide Level 25 mmol/L (21-32) Anion Gap 9 (6-14) Blood Urea Nitrogen 10 mg/dL (7-20) Creatinine 0.6 mg/dL (0.6-1.0) Estimated GFR (Cockcroft-Gault) 110.2 Glucose Level 185 mg/dL (70-99) Calcium Level 8.9 mg/dL (8.5-10.1) Phosphorus Level 2.2 mg/dL (2.6-4.7) Magnesium Level 2.1 mg/dL (1.8-2.4) Total Bilirubin 6.6 mg/dL (0.2-1.0) Direct Bilirubin 4.4 mg/dL (0.0-0.2) Aspartate Amino Transf (AST/SGOT) 111 U/L (15-37) Alanine Aminotransferase (ALT/SGPT) 55 U/L (14-59) Alkaline Phosphatase 100 U/L (46-116) Total Protein 5.4 g/dL (6.4-8.2) Albumin 2.9 g/dL (3.4-5.0) White Blood Count 7.8 x10^3/uL (4.0-11.0) Red Blood Count 2.61 x10^6/uL (3.50-5.40) Hemoglobin 7.8 g/dL (12.0-15.5) Hematocrit 24.2 % (36.0-47.0) Mean Corpuscular Volume 93 fL (79-100) Mean Corpuscular Hemoglobin 30 pg (25-35) Mean Corpuscular Hemoglobin Concent 32 g/dL (31-37) Red Cell Distribution Width 20.2 % (11.5-14.5) Platelet Count 200 x10^3/uL (140-400) Ammonia 36 mcmol/L (11-34) O2 Saturation 96 % (92-99) Arterial Blood pH 7.48 (7.35-7.45) Arterial Blood pCO2 at Patient Temp 27 mmHg (35-46) Arterial Blood pO2 at Patient Temp 82 mmHg (75-108) Arterial Blood HCO3 20 mmol/L (21-28) Arterial Blood Base Excess -3 mmol/L (-3-3) FiO2 4l nc Results All relevant outside records, renal labs, imaging studies, telemetry/EKG's were reviewed. Justicifation of Admission Dx: Justifications for Admission: Justification of Admission Dx: Yes Sepsis: Altered Mental Status Altered Mental Status: Altered Mental Status KARMA ARELLANO MD Nov 23, 2020 09:40
--- NOTE | 2020-11-23 09:52 | PDOC ---
[employer] PROGRESS NOTE Date of Service DOS: DATE: 11/23/20 TIME: 09:47 Chief Complaint Chief Complaint Confusion History of Present Illness History of Present Illness 11/23/20 Patient seen and examined in ICU Chart review, discussed with nursing and home health care case manager Still visibly jaundiced, tried to speak but unable to form words Lab work improving since beginning lactulose and rifaxamin. Bilirubin down. Patient did have new onset wheezing today and spoke to nursing about starting PRN nebulizers. 11/22/20 Patient seen and examined in the ICU Chart reviewed, discussed with nursing and home health care case manager Still visibly jaundiced, encephalopathic, but eyes open. Anemia - 6.8. WBC count up to 81. PEG not tolerated. GI considering TPN Patient started on lactulose + rifaxamin per GI FFP being considered for coagulopathy. 11/21/20 Patient seen and examined in the ICU Chart reviewed Still visibly jaundiced Respiratory rate improved to around 25 today, was around 30-35 yesterday. Anemia improving; at Hgb of 6.6 today. Ordered 1 unit PRBC this morning. Hypothermia resolved; temp today 98.1 WBC count improved to 6. Patient now on PEG tube. Dex for sedation Octreotide drip IV Protonix Continue rectal bag Wood to BSD in place 11/20/20 Patient seen and examined in the ICU Chart reviewed She is visibly jaundiced Very anemic with HBG at 2.44 Hypothermic today with temp of 97.5 F (04:00), up from 94.4 F yesterday (20:00) White blood cells trending downward from normal, today WBC are 3.7 Dex for sedation Octreotide drip in the room IV Protonix going Continue rectal bag Wood to BSD in place 11/19/20 VERY ANEMIC, HYPOTENSIVE 11-18 MELD score on admit is 40, PROGNOSIS VERY GUARDED ECHO pending, cardiology consulted Stools slightly red per RN NH4 pending IONIZED CA 1.05 VIT D LEVEL pending 11/18/20 VERY ANEMIC, HYPOTENSIVE OVERNIGHT ECHO pending, cardiology consulted NH4 pending ID CONSULT NEUROLOGY CONSULT Gen Surg consult 11/17/20 Ms Phipps is a 40yo F w/ PMHx morbid obesity s/p gastric bypass ini 2008, alcohol use disorder, Anxiety, Depression, Hypertension, IBS, Kidney Stones, Pancreatitis, chronic back pain, and smoker who presented to [facility] ED in [place], [place] via EMS for altered mental status. Her called because patient has been on couch has been increasingly confused over the past 5 days. Per EMS report she had a fall a few days ago when she was intoxicated. EKG appears sinus tachycardia, heart rate [address] elevation or depression, no ectopy. Normal intervals. T waves unremarkable. CT chest abdomen pelvis revealed severe hepatic steatosis and cholelithiasis with hydropic gallbladder and gastric bypass, no other acute findings. CT head with no acute hemorrhage. Labs with WBC 7.5, Hb 6.4, platelets 237, Na 130, K 4.3, BUN 10, Cr 2.3, glucose 72, Trop 0, BNP 939, Albumin 1.8, INR 4.9, ammonia 44, bilirubin 11, AST 2744, ALT 400, Alk phos 172, Lipase 42 Given concern for acute liver failure and acute renal failure patient accepted for transfer to [facility] for specialist consultation. Seen bedside with her , patient following very few commands, otherwise drowsy, not oriented, moaning, not articulating well or making meaningful eye contact. notes that sometimes this might happen for a week at a time at home and frightens their 11 and 17 year old children. He notes "it has been a rough year". She was [facility] last October after a DUI and parole violation of intoxication with alcohol that led to her serving 17 months in [facility] [place]. She has struggled with substance use disorder, specifically alcohol, according to her since her gastric bypass in 2008, has been previously treated for this as well as pancreatitis. Admitted to ICU for further treatment. Due to the inability to maintain a peripheral IV and concern for potential uncontrollable bleeding in the neck a right femoral central venous catheter was placed for medications, blood transfusion and lab draw purposes for frequent lab draws. Vitals/I&O Vitals/I&O: Vital Signs Date Time Temp Pulse Resp B/P (MAP) Pulse Ox O2 Delivery O2 Flow Rate FiO2 11/23/20 09:00 71 28 158/89 (112) 100 Nasal Cannula 4.0 11/23/20 08:00 98.2 98.2 I & O 11/22/20 11/22/20 11/23/20 15:00 23:00 07:00 Intake Total 100 ml 1970 ml 1044 ml Output Total 250 ml 775 ml 300 ml Balance -150 ml 1195 ml 744 ml Physical Exam Physical Exam: GENERAL: Somnolent, mild respiratory distress HEENT: Normocephalic, atraumatic. Sclerae icteric. NG tube placement NECK: Supple. LUNGS: Clear bilaterally. HEART: S1, S2. No murmurs. ABDOMEN: Obese, soft, Bowel sounds present, does not grimace on deep palpation EXTREMITIES: Edema present no cyanosis. GENITOURINARY: Wood in place. Fecal tube in place. Femoral line removed DERMATOLOGIC: No generalized rash. Multiple tattoos. CENTRAL NERVOUS SYSTEM: Somnolent, unable to assess Right upper extremity PICC line with dry blood General: Other (Unable to say words, but able to conciously moan) Heart: Regular rate Lungs: Wheezing Abdomen: Soft, Other (obese ) Extremities: No cyanosis Skin: No breakdown, Other (Visibly jaundiced.) Labs Labs: Laboratory Tests Test 11/22/20 12:30 11/23/20 06:00 11/23/20 06:25 11/23/20 07:35 Clostridium difficile Toxin (PCR) Negative (NEGATIVE) Sodium Level 155 mmol/L (136-145) Potassium Level 3.8 mmol/L (3.5-5.1) Chloride Level 121 mmol/L (98-107) Carbon Dioxide Level 25 mmol/L (21-32) Anion Gap 9 (6-14) Blood Urea Nitrogen 10 mg/dL (7-20) Creatinine 0.6 mg/dL (0.6-1.0) Estimated GFR (Cockcroft-Gault) 110.2 Glucose Level 185 mg/dL (70-99) Calcium Level 8.9 mg/dL (8.5-10.1) Phosphorus Level 2.2 mg/dL (2.6-4.7) Magnesium Level 2.1 mg/dL (1.8-2.4) Total Bilirubin 6.6 mg/dL (0.2-1.0) Direct Bilirubin 4.4 mg/dL (0.0-0.2) Aspartate Amino Transf (AST/SGOT) 111 U/L (15-37) Alanine Aminotransferase (ALT/SGPT) 55 U/L (14-59) Alkaline Phosphatase 100 U/L (46-116) Total Protein 5.4 g/dL (6.4-8.2) Albumin 2.9 g/dL (3.4-5.0) White Blood Count 7.8 x10^3/uL (4.0-11.0) Red Blood Count 2.61 x10^6/uL (3.50-5.40) Hemoglobin 7.8 g/dL (12.0-15.5) Hematocrit 24.2 % (36.0-47.0) Mean Corpuscular Volume 93 fL (79-100) Mean Corpuscular Hemoglobin 30 pg (25-35) Mean Corpuscular Hemoglobin Concent 32 g/dL (31-37) Red Cell Distribution Width 20.2 % (11.5-14.5) Platelet Count 200 x10^3/uL (140-400) Ammonia 36 mcmol/L (11-34) O2 Saturation 96 % (92-99) Arterial Blood pH 7.48 (7.35-7.45) Arterial Blood pCO2 at Patient Temp 27 mmHg (35-46) Arterial Blood pO2 at Patient Temp 82 mmHg (75-108) Arterial Blood HCO3 20 mmol/L (21-28) Arterial Blood Base Excess -3 mmol/L (-3-3) FiO2 4l nc Assessment and Plan Assessmemt and Plan Assessment New onset wheezing Acute metabolic encephalopathy - seems likely hepatic in origin due fatty liver and alcoholic liver disease Acute anemia Acute renal failure Acute liver failure - MELD score on admit is 40 Acute hepatitis - possibly alcoholic etiology Hydropic gallbladder with gallbladder sludge per US Alcohol use disorder Plan prn Nebulizers. Continue Lactulose + Rifaxamin Consider FFP for coagulopathy ICU monitoring [facility] protocol Trend labs DVT Prophylaxis Continue home medication Full code Prognosis guarded Appreciate subspecialist input Comment Review of Relevant I have reviewed the following items josue (where applicable) has been applied. Medications: Current Medications Medications (Trade) Dose Ordered Sig/Saud Route PRN Reason Start Time Stop Time Status Last Admin Dose Admin Daptomycin 470 mg/ Sodium Chloride 50 ml @ 100 mls/hr Q24H IV 11/22/20 13:00 11/22/20 13:21 Potassium Phosphate 15 mmol/ Sodium Chloride 255 ml @ 127.5 mls/ hr 1X ONCE IV 11/22/20 14:00 11/22/20 15:59 DC 11/22/20 13:20 Potassium Acetate 50 meq/Potassium Phosphate 18 mmol/ Magnesium Sulfate 10 meq/Calcium Gluconate 10 meq/ Multivitamins 5 ml/Zinc/Copper/ Manganese/ Selenium 1 ml/ Thiamine HCl 100 mg/Folic Acid 1 mg/Total Parenteral Nutrition/Amino Acids/Dextrose 1,800 ml @ 75 mls/hr TPN CONT IV 11/22/20 22:00 11/23/20 21:59 11/22/20 21:37 Potassium Chloride/Water 100 ml @ 100 mls/hr 1X ONCE IV 11/22/20 16:00 11/22/20 16:59 DC 11/22/20 15:20 Justifications for Admission General Conditions Poss tachycardia?: Yes Justification for admission: Patient has tachycardia (> 100 beats per minute) which is not readily corrected by appropriate treatment within 12 to 24 hours. Poss Metaboilic Acidosis?: Yes Justification for admission: Patient has tachycardia (> 100 beats per minute) or hypotension (SBP < 90 mm Hg) leading to inadequate systemic perfusion as indicated by metabolic acidosis with arterial pH of less than 7.35. Altered mental status?: Yes Justification of admission: Patient has tachycardia (> 100 beats per minute) or hypotension (SBP < 90 mm Hg) leading to inadequate systemic perfusion as indicated by severe/persistent altered mental status. Other Justification MOOK CHRISTOPHER III DO Nov 23, 2020 09:52
[2020-11-23] MEDS ORDERED: amLODIPine BESYLATE 10 MG TABLET PO ONE (10:00)
[2020-11-23] MEDS ORDERED: POTASSIUM PHOS,M-BASIC-D-BASIC 15 MMOL in IV NORMAL SALINE 250ML 250 ML IV ONE (11:00)
--- NOTE | 2020-11-23 11:36 | RAD ---
EXAM: Right upper extremity venous Doppler sonogram. HISTORY: Pain and swelling. TECHNIQUE: Sandoval scale and color Doppler sonographic evaluation of the right upper extremity veins wit h spectral waveform analysis was performed. FINDINGS: Exam is limited due to multiple peripheral venous catheters, soft tissue edema and patient immobility. There is normal color flow, normal compressibility and there are normal spectral waveform s in the common utilized up or extremity veins. IMPRESSION: No Doppler evidence of upper extremity venous thrombosis, with limited evaluation describ ed above. Electronically signed by: Celia Mckeon MD (11/23/2020 11:34 AM) [id number]
--- NOTE | 2020-11-23 12:04 | PDOC ---
Date of Service: DATE: 11/23/20 TIME: 12:00 Objective: Objective: D/w nurse - about the same, no bleeding, awakens some but on Precedex and Fentanyl - did c/o pain. has asked for clarification re: the state of her liver. Vital Signs: Vital Signs Date Time Temp Pulse Resp B/P (MAP) Pulse Ox O2 Delivery O2 Flow Rate FiO2 11/23/20 11:56 Nasal Cannula 4.0 11/23/20 11:00 72 31 159/69 (99) 94 11/23/20 08:00 98.2 98.2 Labs: Laboratory Tests Test 11/22/20 12:30 11/23/20 06:00 11/23/20 06:25 11/23/20 07:35 Clostridium difficile Toxin (PCR) Negative Sodium Level 155 mmol/L Potassium Level 3.8 mmol/L Chloride Level 121 mmol/L Carbon Dioxide Level 25 mmol/L Anion Gap 9 Blood Urea Nitrogen 10 mg/dL Creatinine 0.6 mg/dL Estimated GFR (Cockcroft-Gault) 110.2 Glucose Level 185 mg/dL Calcium Level 8.9 mg/dL Phosphorus Level 2.2 mg/dL Magnesium Level 2.1 mg/dL Total Bilirubin 6.6 mg/dL Direct Bilirubin 4.4 mg/dL Aspartate Amino Transf (AST/SGOT) 111 U/L Alanine Aminotransferase (ALT/SGPT) 55 U/L Alkaline Phosphatase 100 U/L Total Protein 5.4 g/dL Albumin 2.9 g/dL White Blood Count 7.8 x10^3/uL Red Blood Count 2.61 x10^6/uL Hemoglobin 7.8 g/dL Hematocrit 24.2 % Mean Corpuscular Volume 93 fL Mean Corpuscular Hemoglobin 30 pg Mean Corpuscular Hemoglobin Concent 32 g/dL Red Cell Distribution Width 20.2 % Platelet Count 200 x10^3/uL Ammonia 36 mcmol/L O2 Saturation 96 % Arterial Blood pH 7.48 Arterial Blood pCO2 at Patient Temp 27 mmHg Arterial Blood pO2 at Patient Temp 82 mmHg Arterial Blood HCO3 20 mmol/L Arterial Blood Base Excess -3 mmol/L FiO2 4l nc Imaging: UE US IMPRESSION: No Doppler evidence of upper extremity venous thrombosis, with limited evaluation described above. PE: GEN: chronically ill LUNGS: NC 4L HEART: RRR ABD: soft, dark brown liquid stool in rectal tube NEURO/PSYCH: did not around during exam A/P: Hepatic encephalopathy (ammonia better) Anemia - stable Elevated LFTs S/p Shante-en-Y, suspect h/o anastomotic ulcers -- I was asked to call - will try to later today. Justicifation of Admission Dx: Justifications for Admission: Justification of Admission Dx: Yes Sepsis: Altered Mental Status Altered Mental Status: Altered Mental Status CHAVA DUKE Nov 23, 2020 12:04
[2020-11-23] MEDS: DAPTOmycin (GENERIC) IVPB 470 MG in IV NORMAL SALINE 50ML 50 ML IV SCH (14:16)
--- NOTE | 2020-11-23 14:48 | NUR ---
SS following up with discharge planning. SS reviewed pt chart and discussed with pt RN. Pt is currently requiring oxygen at four liters nasal canula. COVID19 negative. Pt on IV Zosyn and IV Daptomycin. TPN. Pt NPO. NG tube in place. Lactulose through NG tube. CIWA protocol. ETOH. Per RN, pt not stable to be seen by PAT team today. SS will continue to follow for discharge planning.
[2020-11-23] MEDS ORDERED: [UNRECOGNIZED DRUG - OTHER] IV SCH (22:00)
[2020-11-23] MEDS ORDERED: TOTAL PARENTERAL NUTRITION IV SCH (22:00)
[2020-11-23] MEDS ORDERED: AMINO ACID IV SCH (22:00)
[2020-11-23] MEDS ORDERED: DEXTROSE 70% IV SCH (22:00)
[2020-11-24] VITALS (24 sets, daily range): BP systolic 117–192; BP diastolic 62–112
[2020-11-24] MEDS: PIPERACILLIN/TAZOBACTAM 3.375 GM in IV NORMAL SALINE 50ML 50 ML IV SCH ×5 (00:10→18:27)
[2020-11-24] MEDS: DEXMEDETOMIDINE 400 MCG in IV NORMAL SALINE 100ML 96 ML IV PRN ×2 (00:44→11:06)
[2020-11-24 05:57] LABS: HEMATOCRIT 24.4 % (36.0-47.0); HEMOGLOBIN 7.6 g/dL (12.0-15.5); RED BLOOD COUNT 2.57 x10^6/uL (3.50-5.40); RED CELL DISTRIBUTION WIDTH 20.5 % (11.5-14.5); WHITE BLOOD COUNT 8.2 x10^3/uL (4.0-11.0)
[2020-11-24 06:11] LABS: PROTHROMBIN TIME PATIENT 22.1 SEC (11.7-14.0)
[2020-11-24 06:12] LABS: ALBUMIN 2.6 g/dL (3.4-5.0); CALCIUM 8.7 mg/dL (8.5-10.1); CREATININE 0.6 mg/dL (0.6-1.0); GFR 110.2; PHOSPHORUS 3.2 mg/dL (2.6-4.7); POTASSIUM 3.8 mmol/L (3.5-5.1)
[2020-11-24 06:15] LABS: ALBUMIN 2.7 g/dL (3.4-5.0); DIRECT BILIRUBIN 3.8 mg/dL (0.0-0.2); TOTAL BILIRUBIN 5.9 mg/dL (0.2-1.0); TOTAL PROTEIN 5.3 g/dL (6.4-8.2)
[2020-11-24] MEDS: ELECTROLYTE (ICU) PROTOCOL. MC SCH (07:21)
[2020-11-24] MEDS: rifAXIMin 550 MG TABLET PO SCH ×2 (08:09→21:17)
[2020-11-24] MEDS: PANTOPRAZOLE IV PUSH 40 MG VIAL. IVP SCH ×2 (08:09→21:17)
[2020-11-24] MEDS: amLODIPine BESYLATE 10 MG TABLET PO SCH (08:10)
[2020-11-24] MEDS: LACTULOSE 20 GM/30 ML SOLUTION. FT SCH ×4 (08:11→21:17)
--- NOTE | 2020-11-24 08:19 | PDOC ---
Infectious Disease Note Subjective: Subjective Patient sedated, opens eyes transiently,does not respond to any questions afebrile last 48 hrs Discussed with RN Vital Signs: Vital Signs Vital Signs Date Time Temp Pulse Resp B/P (MAP) Pulse Ox O2 Delivery O2 Flow Rate FiO2 11/24/20 08:10 77 184/99 11/24/20 07:00 29 97 Nasal Cannula 4.0 11/24/20 04:00 97.9 97.9 Physical Exam: PHYSICAL EXAM GENERAL: Somnolent, comfortable HEENT: Normocephalic, atraumatic. Sclerae icteric. NG tube+ NECK: Supple. LUNGS: Clear bilaterally. HEART: S1, S2. No murmurs. ABDOMEN: Obese, soft, Bowel sounds present, does not grimace on deep palpation EXTREMITIES: Edema present no cyanosis. GENITOURINARY: Wood in place. Fecal tube in place. Femoral line removed DERMATOLOGIC: No generalized rash. Multiple tattoos. CENTRAL NERVOUS SYSTEM: Somnolent, unable to assess Right upper extremity PICC line with dry blood Medications: Inpatient Meds: Medications reviewed. Labs: Lab Laboratory Tests Test 11/24/20 00:05 11/24/20 05:30 11/24/20 05:50 11/24/20 06:39 Glucose (Fingerstick) 192 mg/dL (70-99) 173 mg/dL (70-99) White Blood Count 8.2 x10^3/uL (4.0-11.0) Red Blood Count 2.57 x10^6/uL (3.50-5.40) Hemoglobin 7.6 g/dL (12.0-15.5) Hematocrit 24.4 % (36.0-47.0) Mean Corpuscular Volume 95 fL (79-100) Mean Corpuscular Hemoglobin 29 pg (25-35) Mean Corpuscular Hemoglobin Concent 31 g/dL (31-37) Red Cell Distribution Width 20.5 % (11.5-14.5) Platelet Count 160 x10^3/uL (140-400) Prothrombin Time 22.1 SEC (11.7-14.0) Prothromb Time International Ratio 2.0 (0.8-1.1) Sodium Level 154 mmol/L (136-145) Potassium Level 3.8 mmol/L (3.5-5.1) Chloride Level 118 mmol/L (98-107) Carbon Dioxide Level 24 mmol/L (21-32) Anion Gap 12 (6-14) Blood Urea Nitrogen 11 mg/dL (7-20) Creatinine 0.6 mg/dL (0.6-1.0) Estimated GFR (Cockcroft-Gault) 110.2 Glucose Level 177 mg/dL (70-99) Calcium Level 8.7 mg/dL (8.5-10.1) Phosphorus Level 3.2 mg/dL (2.6-4.7) Magnesium Level 1.6 mg/dL (1.8-2.4) Total Bilirubin 5.9 mg/dL (0.2-1.0) Direct Bilirubin 3.8 mg/dL (0.0-0.2) Aspartate Amino Transf (AST/SGOT) 92 U/L (15-37) Alanine Aminotransferase (ALT/SGPT) 49 U/L (14-59) Alkaline Phosphatase 94 U/L (46-116) Total Protein 5.3 g/dL (6.4-8.2) Albumin 2.7 g/dL (3.4-5.0) Ammonia 26 mcmol/L (11-34) Objective: Assessment: Sepsis Fever Portosystemic encephalopathy Acute liver failure, likely from alcoholism with hyperbilirubinemia. Acute renal failure. Anemia. Status post PRBC Coagulopathy. Protein-calorie malnutrition. History of gastroesophageal reflux disease, GI bleed, gastritis, pancreatitis, peptic ulcer disease. History of anxiety and depression. Hydropic gallbladder with hepatic steatosis. Femoral line removed Diarrhea on lactulose Plan: Plan of Care Continue Zosyn/ daptomycin Doppler ultrasound of right upper extremity neg for DVT C. difficile negative Follow up labs and cultures. Femoral line been discontinued Continue supportive care. Maintain aspiration precaution. Discussed with nursing team DAGMAR MALCOLM MD Nov 24, 2020 08:19
--- NOTE | 2020-11-24 08:58 | PDOC ---
PROGRESS NOTES Date of Service DATE: 11/24/20 TIME: 08:56 Assessment Metabolic encephalopathy Pancreatitis, liver failure, renal failure, pancreatitis, history of gastric bypass for obesity, sepsis, hypothermia, anemia, coagulopathy, GERD, history of GI bleed and gastritis, history of anxiety and depression, hydropic gallbladder, hepatic steatosis, diarrhea on lactulose Plan Try to wean off dexmedetomidin No additional neurological studies planned Treat medical diseases On thiamine, dexmedetomidine, rifaximin, and lactulose Subjective None Objective Vital Signs Date Time Temp Pulse Resp B/P (MAP) Pulse Ox O2 Delivery O2 Flow Rate FiO2 11/24/20 08:10 77 184/99 11/24/20 07:00 29 97 Nasal Cannula 4.0 11/24/20 04:00 97.9 97.9 Intake and Output 11/24/20 07:00 Intake Total 3320 ml Output Total 2385 ml Balance 935 ml Intake Oral 300 ml IV Total 2720 ml Tube Feeding 300 ml Output Urine Total 1385 ml Stool Total 1000 ml Chest Tube Drainage Total 0 ml PHYSICAL EXAM Jaundiced Eyes closed, arouses a little bit to pain, nonverbal, follows commands PERRL. EOMI. CN: no focal findings. Muscle tone: normal. Muscle strength: Moves all 4 extremities to command DTR: 1+ Plantar reflex: Flexor Gait: not examined in bed. Sensory exam: Not cooperative. Cerebellar: Not cooperative Review of Relevant I have reviewed the following items josue (where applicable) has been applied. Labs Laboratory Tests Test 11/22/20 12:30 11/23/20 06:00 11/23/20 06:25 11/23/20 07:35 Clostridium difficile Toxin (PCR) Negative (NEGATIVE) Sodium Level 155 mmol/L (136-145) Potassium Level 3.8 mmol/L (3.5-5.1) Chloride Level 121 mmol/L (98-107) Carbon Dioxide Level 25 mmol/L (21-32) Anion Gap 9 (6-14) Blood Urea Nitrogen 10 mg/dL (7-20) Creatinine 0.6 mg/dL (0.6-1.0) Estimated GFR (Cockcroft-Gault) 110.2 Glucose Level 185 mg/dL (70-99) Calcium Level 8.9 mg/dL (8.5-10.1) Phosphorus Level 2.2 mg/dL (2.6-4.7) Magnesium Level 2.1 mg/dL (1.8-2.4) Total Bilirubin 6.6 mg/dL (0.2-1.0) Direct Bilirubin 4.4 mg/dL (0.0-0.2) Aspartate Amino Transf (AST/SGOT) 111 U/L (15-37) Alanine Aminotransferase (ALT/SGPT) 55 U/L (14-59) Alkaline Phosphatase 100 U/L (46-116) Total Protein 5.4 g/dL (6.4-8.2) Albumin 2.9 g/dL (3.4-5.0) White Blood Count 7.8 x10^3/uL (4.0-11.0) Red Blood Count 2.61 x10^6/uL (3.50-5.40) Hemoglobin 7.8 g/dL (12.0-15.5) Hematocrit 24.2 % (36.0-47.0) Mean Corpuscular Volume 93 fL (79-100) Mean Corpuscular Hemoglobin 30 pg (25-35) Mean Corpuscular Hemoglobin Concent 32 g/dL (31-37) Red Cell Distribution Width 20.2 % (11.5-14.5) Platelet Count 200 x10^3/uL (140-400) Ammonia 36 mcmol/L (11-34) O2 Saturation 96 % (92-99) Arterial Blood pH 7.48 (7.35-7.45) Arterial Blood pCO2 at Patient Temp 27 mmHg (35-46) Arterial Blood pO2 at Patient Temp 82 mmHg (75-108) Arterial Blood HCO3 20 mmol/L (21-28) Arterial Blood Base Excess -3 mmol/L (-3-3) FiO2 4l nc Test 11/24/20 00:05 11/24/20 05:30 11/24/20 05:50 11/24/20 06:39 Glucose (Fingerstick) 192 mg/dL (70-99) 173 mg/dL (70-99) White Blood Count 8.2 x10^3/uL (4.0-11.0) Red Blood Count 2.57 x10^6/uL (3.50-5.40) Hemoglobin 7.6 g/dL (12.0-15.5) Hematocrit 24.4 % (36.0-47.0) Mean Corpuscular Volume 95 fL (79-100) Mean Corpuscular Hemoglobin 29 pg (25-35) Mean Corpuscular Hemoglobin Concent 31 g/dL (31-37) Red Cell Distribution Width 20.5 % (11.5-14.5) Platelet Count 160 x10^3/uL (140-400) Prothrombin Time 22.1 SEC (11.7-14.0) Prothromb Time International Ratio 2.0 (0.8-1.1) Sodium Level 154 mmol/L (136-145) Potassium Level 3.8 mmol/L (3.5-5.1) Chloride Level 118 mmol/L (98-107) Carbon Dioxide Level 24 mmol/L (21-32) Anion Gap 12 (6-14) Blood Urea Nitrogen 11 mg/dL (7-20) Creatinine 0.6 mg/dL (0.6-1.0) Estimated GFR (Cockcroft-Gault) 110.2 Glucose Level 177 mg/dL (70-99) Calcium Level 8.7 mg/dL (8.5-10.1) Phosphorus Level 3.2 mg/dL (2.6-4.7) Magnesium Level 1.6 mg/dL (1.8-2.4) Total Bilirubin 5.9 mg/dL (0.2-1.0) Direct Bilirubin 3.8 mg/dL (0.0-0.2) Aspartate Amino Transf (AST/SGOT) 92 U/L (15-37) Alanine Aminotransferase (ALT/SGPT) 49 U/L (14-59) Alkaline Phosphatase 94 U/L (46-116) Total Protein 5.3 g/dL (6.4-8.2) Albumin 2.7 g/dL (3.4-5.0) Ammonia 26 mcmol/L (11-34) Laboratory Tests Test 11/24/20 00:05 11/24/20 05:30 11/24/20 05:50 11/24/20 06:39 Glucose (Fingerstick) 192 mg/dL (70-99) 173 mg/dL (70-99) White Blood Count 8.2 x10^3/uL (4.0-11.0) Red Blood Count 2.57 x10^6/uL (3.50-5.40) Hemoglobin 7.6 g/dL (12.0-15.5) Hematocrit 24.4 % (36.0-47.0) Mean Corpuscular Volume 95 fL (79-100) Mean Corpuscular Hemoglobin 29 pg (25-35) Mean Corpuscular Hemoglobin Concent 31 g/dL (31-37) Red Cell Distribution Width 20.5 % (11.5-14.5) Platelet Count 160 x10^3/uL (140-400) Prothrombin Time 22.1 SEC (11.7-14.0) Prothromb Time International Ratio 2.0 (0.8-1.1) Sodium Level 154 mmol/L (136-145) Potassium Level 3.8 mmol/L (3.5-5.1) Chloride Level 118 mmol/L (98-107) Carbon Dioxide Level 24 mmol/L (21-32) Anion Gap 12 (6-14) Blood Urea Nitrogen 11 mg/dL (7-20) Creatinine 0.6 mg/dL (0.6-1.0) Estimated GFR (Cockcroft-Gault) 110.2 Glucose Level 177 mg/dL (70-99) Calcium Level 8.7 mg/dL (8.5-10.1) Phosphorus Level 3.2 mg/dL (2.6-4.7) Magnesium Level 1.6 mg/dL (1.8-2.4) Total Bilirubin 5.9 mg/dL (0.2-1.0) Direct Bilirubin 3.8 mg/dL (0.0-0.2) Aspartate Amino Transf (AST/SGOT) 92 U/L (15-37) Alanine Aminotransferase (ALT/SGPT) 49 U/L (14-59) Alkaline Phosphatase 94 U/L (46-116) Total Protein 5.3 g/dL (6.4-8.2) Albumin 2.7 g/dL (3.4-5.0) Ammonia 26 mcmol/L (11-34) Microbiology 11/22/20 Blood Culture - Preliminary, Resulted NO GROWTH AFTER 1 DAY Medications Current Medications Lorazepam (Ativan Inj) 0.5 mg PRN Q6HRS PRN IVP ANXIETY / AGITATION Last administered on 11/18/20at 18:10; Start 11/17/20 at 16:15; Stop 11/19/20 at 01:14; Status DC Ondansetron HCl (Zofran) 4 mg PRN Q6HRS PRN IVP NAUSEA/VOMITING; Start 11/17/20 at 16:15 Prochlorperazine Edisylate (Compazine) 5 mg PRN Q6HRS PRN IVP NAUSEA/VOMITING, 2ND CHOICE; Start 11/17/20 at 16:15 Info (Icu Electrolyte Protocol) 1 ea DAILY MC Last administered on 11/23/20at 08:14; Start 11/18/20 at 09:00 Sodium Chloride (Normal Saline Flush) 3 ml QSHIFT PRN IV AFTER MEDS AND BLOOD DRAWS; Start 11/17/20 at 16:15 Sodium Chloride 1,000 ml @ 1,000 mls/hr Q1H IV Last administered on 11/17/20at 17:50; Start 11/17/20 at 16:15; Stop 11/17/20 at 17:14; Status DC Fentanyl Citrate (Fentanyl 2ml Vial) 25 mcg PRN Q1HR PRN IV PAIN Last administered on 11/23/20at 21:20; Start 11/17/20 at 16:15 Lactulose (Lactulose) 20 gm PRN Q12HR PRN PO CONSTIPATION; Start 11/17/20 at 16:15; Stop 11/17/20 at 17:40; Status DC Bisacodyl (Dulcolax Supp) 10 mg PRN DAILY PRN [place] CONSTIPATION; Start 11/17/20 at 16:15 Pantoprazole Sodium (PROTONIX VIAL for IV PUSH) 40 mg DAILYAC IVP ; Start 11/18/20 at 07:30; Stop 11/17/20 at 17:40; Status DC Lactulose (LACTULOSE 300ML for RECTAL) 200 gm Q6HRS [place] ; Start 11/17/20 at 18:00; Stop 11/17/20 at 17:40; Status DC Sodium Bicarbonate 75 meq/Sodium Chloride 1,075 ml @ 125 mls/hr Q8H36M IV Last administered on 11/19/20at 05:44; Start 11/17/20 at 17:00; Stop 11/19/20 at 09:16; Status DC Pantoprazole Sodium (PROTONIX VIAL for IV PUSH) 80 mg 1X ONCE IVP Last administered on 11/17/20at 17:50; Start 11/17/20 at 18:00; Stop 11/17/20 at 18:01; Status DC Pantoprazole Sodium 80 mg/ Sodium Chloride 100 ml @ 10 mls/hr Q10H IV Last administered on 11/21/20at 12:30; Start 11/17/20 at 18:00; Stop 11/21/20 at 13:52; Status DC Octreotide Acetate 500 mcg/ Sodium Chloride 101 ml @ 10.1 mls/hr CONT PRN IV SEE I/O RECORD Last administered on 11/21/20at 12:30; Start 11/17/20 at 17:30; Stop 11/21/20 at 13:52; Status DC Lactulose (LACTULOSE 300ML for RECTAL) 200 gm Q2HR [place] Last administered on 11/20/20at 13:23; Start 11/17/20 at 18:00; Stop 11/20/20 at 19:16; Status DC Magnesium Sulfate 50 ml @ 25 mls/hr 1X ONCE IV Last administered on 11/17/20at 18:34; Start 11/17/20 at 18:30; Stop 11/17/20 at 20:29; Status DC Albumin Human 500 ml @ 125 mls/hr PRN DAILY PRN IV HYPOTENSION Last administered on 11/18/20at 01:47; Start 11/18/20 at 00:15 Multivitamins 10 ml/Thiamine HCl 100 mg/Folic Acid 1 mg/Sodium Chloride 1,011.2 ml @ 100 mls/ hr DAILY IV Last administered on 11/21/20at 09:17; Start 11/18/20 at 09:00; Stop 11/21/20 at 13:58; Status DC Thiamine HCl 100 mg/Dextrose 51 ml @ 100 mls/hr DAILY IV ; Start 11/23/20 at 09:00; Stop 11/27/20 at 09:31; Status Cancel Lorazepam (Ativan) 2 mg Q6H PO ; Start 11/18/20 at 08:00; Stop 11/19/20 at 01:14; Status DC Lactulose (Lactulose) 30 gm PRN DAILY PRN PO GI SYMPTOMS; Start 11/18/20 at 08:00; Status UNV Lactulose (Lactulose) 30 gm PRN DAILY PRN PO GI SYMPTOMS; Start 11/18/20 at 08:30; Status UNV Piperacillin Sod/ Tazobactam Sod (Zosyn Per Pharmacy) 1 each PRN DAILY PRN MC SEE COMMENTS; Start 11/18/20 at 12:00 Piperacillin Sod/ Tazobactam Sod 3.375 gm/Sodium Chloride 50 ml @ 100 mls/hr Q6HRS IV Last administered on 11/24/20at 08:10; Start 11/18/20 at 12:00 Phytonadione (Vitamin K Ampule) 5 mg 1X ONCE SQ Last administered on 11/18/20at 12:50; Start 11/18/20 at 12:15; Stop 11/18/20 at 12:16; Status DC Lorazepam (Ativan Inj) 2 mg PRN Q1HR PRN IV For CIWA 8-14 Last administered on 11/24/20at 08:08; Start 11/18/20 at 18:15 Potassium Chloride/Water 100 ml @ 100 mls/hr Q1H IV Last administered on 11/19/20at 09:30; Start 11/19/20 at 08:30; Stop 11/19/20 at 10:29; Status DC Magnesium Sulfate 50 ml @ 25 mls/hr PRN DAILY PRN IV for Mag < 1.7 on am labs; Start 11/19/20 at 08:30 Albumin Human 100 ml @ 100 mls/hr TID IV Last administered on 11/20/20at 22:11; Start 11/19/20 at 10:00; Stop 11/20/20 at 21:59; Status DC Lorazepam (Ativan Inj) 4 mg PRN Q1HR PRN IV For CIWA 15 or greater; Start 11/19/20 at 10:00 Dexmedetomidine HCl 400 mcg/ Sodium Chloride 100 ml @ 0 mls/hr CONT PRN IV PER PROTOCOL Last administered on 11/24/20at 00:44; Start 11/19/20 at 10:00 Sodium Chloride 500 ml @ 500 mls/hr 1X PRN PRN IV SEE COMMENTS; Start 11/19/20 at 10:00 Atropine Sulfate (ATROPINE 0.5mg SYRINGE) 0.5 mg PRN Q5MIN PRN IV SEE COMMENTS; Start 11/19/20 at 10:00 Calcium Gluconate 1000 mg/Sodium Chloride 110 ml @ 220 mls/hr 1X ONCE IV ; Start 11/19/20 at 14:00; Stop 11/19/20 at 14:29; Status UNV Calcium Gluconate 1000 mg/Sodium Chloride 110 ml @ 220 mls/hr 1X ONCE IV Last administered on 11/19/20at 14:29; Start 11/19/20 at 15:00; Stop 11/19/20 at 15:29; Status DC Potassium Chloride/Water 100 ml @ 100 mls/hr Q1H IV Last administered on 11/20/20at 16:11; Start 11/20/20 at 10:30; Stop 11/20/20 at 14:29; Status DC Lactulose (Lactulose) 20 gm QID FT Last administered on 11/24/20at 08:11; Start 11/20/20 at 17:00 Lactulose (Lactulose) 20 gm STK-MED ONCE .ROUTE ; Start 11/20/20 at 16:09; Stop 11/20/20 at 16:09; Status DC Albumin Human 100 ml @ As Directed STK-MED ONCE IV ; Start 11/20/20 at 22:06; Stop 11/20/20 at 22:07; Status DC Lactulose (Lactulose) 20 gm STK-MED ONCE .ROUTE ; Start 11/20/20 at 22:07; Stop 11/20/20 at 22:07; Status DC Lactulose (Lactulose) 20 gm STK-MED ONCE .ROUTE ; Start 11/21/20 at 09:04; Stop 11/21/20 at 09:05; Status DC Potassium Chloride/Water 100 ml @ 100 mls/hr Q1H IV Last administered on 11/21/20at 11:16; Start 11/21/20 at 09:30; Stop 11/21/20 at 11:29; Status DC Rifaximin (Xifaxan) 550 mg Q12HR PO Last administered on 11/24/20at 08:09; Start 11/21/20 at 12:30 Info (Tpn Per Pharmacy) 1 each PRN DAILY PRN MC SEE COMMENTS Last administered on 11/23/20at 09:27; Start 11/21/20 at 14:00 Potassium Phosphate 15 mmol/ Sodium Chloride 255 ml @ 127.5 mls/ hr 1X ONCE IV Last administered on 11/21/20at 14:19; Start 11/21/20 at 14:00; Stop 11/21/20 at 15:59; Status DC Pantoprazole Sodium (PROTONIX VIAL for IV PUSH) 40 mg BID IVP Last administered on 11/24/20at 08:09; Start 11/21/20 at 21:00 Potassium Chloride 50 meq/ Potassium Phosphate 13.6 mmol/Magnesium Sulfate 10 meq/ Calcium Gluconate 10 meq/ Multivitamins 5 ml/Zinc/Copper/ Manganese/ Selenium 1 ml/ Thiamine HCl 100 mg/Folic Acid 1 mg/Total Parenteral Nutrition/Amino Acids/Dextrose/ Fat Emuls... 1,800 ml @ 75 mls/hr TPN CONT IV Last administered on 11/21/20at 22:55; Start 11/21/20 at 22:00; Stop 11/22/20 at 21:59; Status DC Rifaximin (Xifaxan) 550 mg STK-MED ONCE PO ; Start 11/21/20 at 14:17; Stop 11/21/20 at 14:17; Status DC Lactulose (Lactulose) 20 gm STK-MED ONCE .ROUTE ; Start 11/21/20 at 14:17; Stop 11/21/20 at 14:17; Status DC Daptomycin 470 mg/ Sodium Chloride 50 ml @ 100 mls/hr Q24H IV Last administered on 11/23/20at 14:16; Start 11/22/20 at 13:00 Potassium Phosphate 15 mmol/ Sodium Chloride 255 ml @ 127.5 mls/ hr 1X ONCE IV Last administered on 11/22/20at 13:20; Start 11/22/20 at 14:00; Stop 11/22/20 at 15:59; Status DC Potassium Acetate 50 meq/Potassium Phosphate 18 mmol/ Magnesium Sulfate 10 meq/Calcium Gluconate 10 meq/ Multivitamins 5 ml/Zinc/Copper/ Manganese/ Selenium 1 ml/ Thiamine HCl 100 mg/Folic Acid 1 mg/Total Parenteral Nutrition/Amino Acids/Dextrose 1,800 ml @ 75 mls/hr TPN CONT IV Last administered on 11/22/20at 21:37; Start 11/22/20 at 22:00; Stop 11/23/20 at 21:59; Status DC Potassium Chloride/Water 100 ml @ 100 mls/hr 1X ONCE IV Last administered on 11/22/20at 15:20; Start 11/22/20 at 16:00; Stop 11/22/20 at 16:59; Status DC Albuterol Sulfate (Ventolin Neb Soln) 2.5 mg PRN Q4HRS PRN NEB SHORTNESS OF BREATH Last administered on 11/23/20at 11:53; Start 11/23/20 at 09:15 Potassium Phosphate 15 mmol/ Sodium Chloride 255 ml @ 127.5 mls/ hr 1X ONCE IV Last administered on 11/23/20at 10:39; Start 11/23/20 at 11:00; Stop 11/23/20 at 12:59; Status DC Potassium Acetate 50 meq/Potassium Phosphate 21 mmol/ Magnesium Sulfate 10 meq/Calcium Gluconate 10 meq/ Multivitamins 5 ml/Zinc/Copper/ Manganese/ Selenium 1 ml/ Thiamine HCl 100 mg/Folic Acid 1 mg/Total Parenteral Nutrition/Amino Acids/Dextrose 1,800 ml @ 75 mls/hr TPN CONT IV Last administered on 11/23/20at 21:54; Start 11/23/20 at 22:00; Stop 11/24/20 at 21:59 Amlodipine Besylate (Norvasc) 10 mg DAILY PO Last administered on 11/24/20at 08:10; Start 11/24/20 at 09:00 Amlodipine Besylate (Norvasc) 10 mg 1X ONCE PO Last administered on 11/23/20at 10:03; Start 11/23/20 at 10:00; Stop 11/23/20 at 10:01; Status DC Vitals/I & O Vital Sign - Last 24 Hours 11/23/20 11/23/20 11/23/20 11/23/20 09:00 10:00 10:03 11:00 Pulse 71 72 72 72 Resp 28 30 31 B/P (MAP) 158/89 (112) 175/87 (116) 175/87 159/69 (99) Pulse Ox 100 100 94 O2 Delivery Nasal Cannula Nasal Cannula Nasal Cannula O2 Flow Rate 4.0 4.0 4.0 11/23/20 11/23/20 11/23/20 11/23/20 11:56 12:00 12:12 12:42 Pulse 74 Resp 28 34 28 B/P (MAP) 146/68 (94) Pulse Ox 95 94 93 O2 Delivery Nasal Cannula Nasal Cannula Nasal Cannula Nasal Cannula O2 Flow Rate 4.0 4.0 4.0 4.0 11/23/20 11/23/20 11/23/20 11/23/20 13:00 14:00 15:00 16:00 Temp 98.4 98.4 Pulse 68 72 69 66 Resp 32 32 B/P (MAP) 146/64 (91) 158/80 (106) 130/76 (94) 165/93 (117) Pulse Ox 94 97 97 97 O2 Delivery Nasal Cannula Nasal Cannula Nasal Cannula Nasal Cannula O2 Flow Rate 4.0 4.0 4.0 4.0 11/23/20 11/23/20 11/23/20 11/23/20 16:00 16:53 17:00 17:23 Pulse 66 Resp 40 28 B/P (MAP) 119/67 (84) Pulse Ox 97 96 96 O2 Delivery Nasal Cannula Nasal Cannula Nasal Cannula Nasal Cannula O2 Flow Rate 4.0 4.0 4.0 4.0 11/23/20 11/23/20 11/23/20 11/23/20 18:00 19:00 20:00 20:00 Temp 98.5 98.5 Pulse 107 65 64 Resp 24 B/P (MAP) 147/94 (111) 135/90 (105) 140/84 (102) Pulse Ox 96 97 95 O2 Delivery Nasal Cannula Nasal Cannula Nasal Cannula Nasal Cannula O2 Flow Rate 4.0 4.0 4.0 4.0 11/23/20 11/23/20 11/23/20 11/23/20 21:00 21:20 21:54 22:00 Pulse 81 76 Resp B/P (MAP) 139/85 (103) 145/92 (109) Pulse Ox 97 96 96 98 O2 Delivery Nasal Cannula Nasal Cannula Nasal Cannula O2 Flow Rate 4.0 4.0 4.0 11/23/20 11/24/20 11/24/20 11/24/20 23:00 00:00 00:00 01:00 Temp 98.7 98.7 Pulse 70 72 67 Resp B/P (MAP) 148/91 (110) 156/89 (111) 141/91 (108) Pulse Ox 95 93 96 O2 Delivery Nasal Cannula Nasal Cannula Nasal Cannula Nasal Cannula O2 Flow Rate 4.0 4.0 4.0 4.0 11/24/20 11/24/20 11/24/20 11/24/20 02:00 02:59 04:00 04:00 Temp 97.9 97.9 Pulse 79 74 82 Resp B/P (MAP) 159/81 (107) 145/88 (107) 134/88 (103) Pulse Ox 98 97 98 O2 Delivery Nasal Cannula Nasal Cannula Nasal Cannula Nasal Cannula O2 Flow Rate 4.0 4.0 4.0 4.0 11/24/20 11/24/20 11/24/20 11/24/20 05:00 06:00 07:00 08:10 Pulse 108 93 77 77 Resp 24 22 29 B/P (MAP) 155/95 (115) 177/97 (123) 184/99 (127) 184/99 Pulse Ox 99 96 97 O2 Delivery Nasal Cannula Nasal Cannula Nasal Cannula O2 Flow Rate 4.0 4.0 4.0 Intake and Output 11/23/20 11/23/20 11/24/20 15:00 23:00 07:00 Intake Total 655 ml 1150 ml 1515 ml Output Total 425 ml 875 ml 1085 ml Balance 230 ml 275 ml 430 ml Justicifation of Admission Dx: Justifications for Admission: Justification of Admission Dx: Yes Sepsis: Altered Mental Status Altered Mental Status: Altered Mental Status MADDISON COLE MD Nov 24, 2020 08:58
--- NOTE | 2020-11-24 09:04 | PDOC ---
DATE OF SERVICE DATE: 11/24/20 TIME: 09:03 SUBJECTIVE ROS Stable OBJECTIVE Vital Signs Vital Signs Date Time Temp Pulse Resp B/P (MAP) Pulse Ox O2 Delivery O2 Flow Rate FiO2 11/24/20 08:10 77 184/99 11/24/20 07:00 29 97 Nasal Cannula 4.0 11/24/20 04:00 97.9 97.9 I & 0 Intake and Output 11/24/20 07:00 Intake Total 3320 ml Output Total 2385 ml Balance 935 ml Intake Oral 300 ml IV Total 2720 ml Tube Feeding 300 ml Output Urine Total 1385 ml Stool Total 1000 ml Chest Tube Drainage Total 0 ml PHYSICAL EXAM Physical Exam GENERAL: Morbidly obese , NAD HEENT: Normocephalic, atraumatic. Sclerae icteric.On o2 by NC NECK: Supple. LUNGS Decreased at bases, .Non labored HEART: S1, S2. No murmurs. ABDOMEN: Obese, soft, Bowel sounds present, EXTREMITIES: Edema present no cyanosis. GENITOURINARY: Wood in place. Fecal tube in place. DERMATOLOGIC: No generalized rash. Multiple tattoos. CENTRAL NERVOUS SYSTEM: moving all extremities,on precedex DIAGNOSIS/ASSESSMENT Assessment & Plan EARL/possible ATN . Resolved , US abd report unremarkable kidneys Non Oliguric currently, supportive care, maintain hydration, Strict I/O HypoKalemia- replace as indicated HyperNatremia- Currently on TPN, added Free water flushes , Na improving Metabolic acidosis POA - resolved Protein-calorie malnutrition./Severe hypoalbuminemia: Anemia: Defer to GI to evaluate and treat, Sepsis Acute liver failure, likely from alcoholism with hyperbilirubinemia. 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;hydrops GB--not a surgical candidate, no surgical plans Morbidly obese COMMENT/RELEVANT DATA Meds Current Medications Medications (Trade) Dose Ordered Sig/Saud Start Time Stop Time Status Last Admin Dose Admin Albumin Human 100 ml @ As Directed STK-MED ONCE 11/20/20 22:06 11/20/20 22:07 DC Albuterol Sulfate (Ventolin Neb Soln) 2.5 mg PRN Q4HRS PRN 11/23/20 09:15 11/23/20 11:53 2.5 MG Amlodipine Besylate (Norvasc) 10 mg 1X ONCE 11/23/20 10:00 11/23/20 10:01 DC 11/23/20 10:03 10 MG Atropine Sulfate (ATROPINE 0.5mg SYRINGE) 0.5 mg PRN Q5MIN PRN 11/19/20 10:00 Bisacodyl (Dulcolax Supp) 10 mg PRN DAILY PRN 11/17/20 16:15 Calcium Gluconate 1000 mg/Sodium Chloride 110 ml @ 220 mls/hr 1X ONCE 11/19/20 15:00 11/19/20 15:29 DC 11/19/20 14:29 220 MLS/HR Daptomycin 470 mg/ Sodium Chloride 50 ml @ 100 mls/hr Q24H 11/22/20 13:00 11/23/20 14:16 100 MLS/HR Dexmedetomidine HCl 400 mcg/ Sodium Chloride 100 ml @ 0 mls/hr CONT PRN 11/19/20 10:00 11/24/20 00:44 12.5 MLS/HR Fentanyl Citrate (Fentanyl 2ml Vial) 25 mcg PRN Q1HR PRN 11/17/20 16:15 11/23/20 21:20 25 MCG Info ([facility] Electrolyte Protocol) 1 ea DAILY 11/18/20 09:00 11/23/20 08:14 1 EA Info (Tpn Per Pharmacy) 1 each PRN DAILY PRN 11/21/20 14:00 11/23/20 09:27 1 EACH Lactulose (LACTULOSE 300ML for RECTAL) 200 gm Q2HR 11/17/20 18:00 11/20/20 19:16 DC 11/20/20 13:23 200 GM Lactulose (Lactulose) 20 gm STK-MED ONCE 11/21/20 14:17 11/21/20 14:17 DC Lorazepam (Ativan Inj) 4 mg PRN Q1HR PRN 11/19/20 10:00 Lorazepam (Ativan) 2 mg Q6H 11/18/20 08:00 11/19/20 01:14 DC Magnesium Sulfate 50 ml @ 25 mls/hr PRN DAILY PRN 11/19/20 08:30 Multivitamins 10 ml/Thiamine HCl 100 mg/Folic Acid 1 mg/Sodium Chloride 1,011.2 ml @ 100 mls/ hr DAILY 11/18/20 09:00 11/21/20 13:58 DC 11/21/20 09:17 100 MLS/HR Octreotide Acetate 500 mcg/ Sodium Chloride 101 ml @ 10.1 mls/hr CONT PRN 11/17/20 17:30 11/21/20 13:52 DC 11/21/20 12:30 10.1 MLS/HR Ondansetron HCl (Zofran) 4 mg PRN Q6HRS PRN 11/17/20 16:15 Pantoprazole Sodium (PROTONIX VIAL for IV PUSH) 40 mg BID 11/21/20 21:00 11/24/20 08:09 40 MG Pantoprazole Sodium 80 mg/ Sodium Chloride 100 ml @ 10 mls/hr Q10H 11/17/20 18:00 11/21/20 13:52 DC 11/21/20 12:30 10 MLS/HR Phytonadione (Vitamin K Ampule) 5 mg 1X ONCE 11/18/20 12:15 11/18/20 12:16 DC 11/18/20 12:50 5 MG Piperacillin Sod/ Tazobactam Sod (Zosyn Per Pharmacy) 1 each PRN DAILY PRN 11/18/20 12:00 Piperacillin Sod/ Tazobactam Sod 3.375 gm/Sodium Chloride 50 ml @ 100 mls/hr Q6HRS 11/18/20 12:00 11/24/20 08:10 100 MLS/HR Potassium Chloride 50 meq/ Potassium Phosphate 13.6 mmol/Magnesium Sulfate 10 meq/ Calcium Gluconate 10 meq/ Multivitamins 5 ml/Zinc/Copper/ Manganese/ Selenium 1 ml/ Thiamine HCl 100 mg/Folic Acid 1 mg/Total Parenteral Nutrition/Amino Acids/Dextrose/ Fat Emuls... 1,800 ml @ 75 mls/hr TPN CONT 11/21/20 22:00 11/22/20 21:59 DC 11/21/20 22:55 75 MLS/HR Potassium Chloride/Water 100 ml @ 100 mls/hr 1X ONCE 11/22/20 16:00 11/22/20 16:59 DC 11/22/20 15:20 100 MLS/HR Potassium Phosphate 15 mmol/ Sodium Chloride 255 ml @ 127.5 mls/ hr 1X ONCE 11/23/20 11:00 11/23/20 12:59 DC 11/23/20 10:39 127.5 MLS/HR Potassium Acetate 50 meq/Potassium Phosphate 18 mmol/ Magnesium Sulfate 10 meq/Calcium Gluconate 10 meq/ Multivitamins 5 ml/Zinc/Copper/ Manganese/ Selenium 1 ml/ Thiamine HCl 100 mg/Folic Acid 1 mg/Total Parenteral Nutrition/Amino Acids/Dextrose 1,800 ml @ 75 mls/hr TPN CONT 11/22/20 22:00 11/23/20 21:59 DC 11/22/20 21:37 75 MLS/HR Potassium Acetate 50 meq/Potassium Phosphate 21 mmol/ Magnesium Sulfate 10 meq/Calcium Gluconate 10 meq/ Multivitamins 5 ml/Zinc/Copper/ Manganese/ Selenium 1 ml/ Thiamine HCl 100 mg/Folic Acid 1 mg/Total Parenteral Nutrition/Amino Acids/Dextrose 1,800 ml @ 75 mls/hr TPN CONT 11/23/20 22:00 11/24/20 21:59 11/23/20 21:54 75 MLS/HR Prochlorperazine Edisylate (Compazine) 5 mg PRN Q6HRS PRN 11/17/20 16:15 Rifaximin (Xifaxan) 550 mg STK-MED ONCE 11/21/20 14:17 11/21/20 14:17 DC Sodium Bicarbonate 75 meq/Sodium Chloride 1,075 ml @ 125 mls/hr Q8H36M 11/17/20 17:00 11/19/20 09:16 DC 11/19/20 05:44 125 MLS/HR Sodium Chloride 500 ml @ 500 mls/hr 1X PRN PRN 11/19/20 10:00 Sodium Chloride (Normal Saline Flush) 3 ml QSHIFT PRN 11/17/20 16:15 Thiamine HCl 100 mg/Dextrose 51 ml @ 100 mls/hr DAILY 11/23/20 09:00 11/27/20 09:31 Cancel Lab Laboratory Tests Test 11/24/20 00:05 11/24/20 05:30 11/24/20 05:50 11/24/20 06:39 Glucose (Fingerstick) 192 mg/dL (70-99) 173 mg/dL (70-99) White Blood Count 8.2 x10^3/uL (4.0-11.0) Red Blood Count 2.57 x10^6/uL (3.50-5.40) Hemoglobin 7.6 g/dL (12.0-15.5) Hematocrit 24.4 % (36.0-47.0) Mean Corpuscular Volume 95 fL (79-100) Mean Corpuscular Hemoglobin 29 pg (25-35) Mean Corpuscular Hemoglobin Concent 31 g/dL (31-37) Red Cell Distribution Width 20.5 % (11.5-14.5) Platelet Count 160 x10^3/uL (140-400) Prothrombin Time 22.1 SEC (11.7-14.0) Prothromb Time International Ratio 2.0 (0.8-1.1) Sodium Level 154 mmol/L (136-145) Potassium Level 3.8 mmol/L (3.5-5.1) Chloride Level 118 mmol/L (98-107) Carbon Dioxide Level 24 mmol/L (21-32) Anion Gap 12 (6-14) Blood Urea Nitrogen 11 mg/dL (7-20) Creatinine 0.6 mg/dL (0.6-1.0) Estimated GFR (Cockcroft-Gault) 110.2 Glucose Level 177 mg/dL (70-99) Calcium Level 8.7 mg/dL (8.5-10.1) Phosphorus Level 3.2 mg/dL (2.6-4.7) Magnesium Level 1.6 mg/dL (1.8-2.4) Total Bilirubin 5.9 mg/dL (0.2-1.0) Direct Bilirubin 3.8 mg/dL (0.0-0.2) Aspartate Amino Transf (AST/SGOT) 92 U/L (15-37) Alanine Aminotransferase (ALT/SGPT) 49 U/L (14-59) Alkaline Phosphatase 94 U/L (46-116) Total Protein 5.3 g/dL (6.4-8.2) Albumin 2.7 g/dL (3.4-5.0) Ammonia 26 mcmol/L (11-34) Results All relevant outside records, renal labs, imaging studies, telemetry/EKG's were reviewed. Justicifation of Admission Dx: Justifications for Admission: Justification of Admission Dx: Yes Sepsis: Altered Mental Status Altered Mental Status: Altered Mental Status KARMA ARELLANO MD Nov 24, 2020 09:04
[2020-11-24] MEDS: fentaNYL PF VIAL 100 MCG/2 ML VIAL IV PRN (09:28)
[2020-11-24] MEDS ORDERED: LABETALOL 20 MG/4 ML DISP.SYRIN. IVP PRN (09:30)
[2020-11-24] MEDS: ENALAPRILAT 2.5 MG/2 ML VIAL. IVP PRN (10:16)
[2020-11-24] MEDS: LABETALOL 20 MG/4 ML DISP.SYRIN. IVP PRN (10:50)
--- NOTE | 2020-11-24 11:16 | PDOC ---
[employer] PROGRESS NOTE Date of Service DOS: DATE: 11/24/20 TIME: 11:15 Chief Complaint Chief Complaint Confusion History of Present Illness History of Present Illness 11/24/2020 Patient seen and examined in the ICU She remains extremely encephalopathic Eyes open but does not really make eye contact Discussed with RN Her pressures are running high Have added an IV labetalol and IV Vasotec Prognosis guarded and she is still critically ill 11/23/20 Patient seen and examined in ICU Chart review, discussed with nursing and child welfare caseworker Still visibly jaundiced, tried to speak but unable to form words Lab work improving since beginning lactulose and rifaxamin. Bilirubin down. Patient did have new onset wheezing today and spoke to nursing about starting PRN nebulizers. 11/22/20 Patient seen and examined in the ICU Chart reviewed, discussed with nursing and child welfare caseworker Still visibly jaundiced, encephalopathic, but eyes open. Anemia - 6.8. WBC count up to 81. PEG not tolerated. GI considering TPN Patient started on lactulose + rifaxamin per GI FFP being considered for coagulopathy. 11/21/20 Patient seen and examined in the ICU Chart reviewed Still visibly jaundiced Respiratory rate improved to around 25 today, was around 30-35 yesterday. Anemia improving; at Hgb of 6.6 today. Ordered 1 unit PRBC this morning. Hypothermia resolved; temp today 98.1 WBC count improved to 6. Patient now on PEG tube. Dex for sedation Octreotide drip IV Protonix Continue rectal bag Wood to BSD in place 11/20/20 Patient seen and examined in the ICU Chart reviewed She is visibly jaundiced Very anemic with HBG at 2.44 Hypothermic today with temp of 97.5 F (04:00), up from 94.4 F yesterday (20:00) White blood cells trending downward from normal, today WBC are 3.7 Dex for sedation Octreotide drip in the room IV Protonix going Continue rectal bag Wood to BSD in place 11/19/20 VERY ANEMIC, HYPOTENSIVE - MELD score on admit is 40, PROGNOSIS VERY GUARDED ECHO pending, cardiology consulted Stools slightly red per RN NH4 pending IONIZED CA 1.05 VIT D LEVEL pending 11/18/20 VERY ANEMIC, HYPOTENSIVE OVERNIGHT ECHO pending, cardiology consulted NH4 pending ID CONSULT NEUROLOGY CONSULT Gen Surg consult 11/17/20 Ms Phipps is a 40yo F w/ PMHx morbid obesity s/p gastric bypass ini 2008, alcohol use disorder, Anxiety, Depression, Hypertension, IBS, Kidney Stones, Pancreatitis, chronic back pain, and smoker who presented to [facility] ED in [place], [place] via EMS for altered mental status. Her called because patient has been on couch has been increasingly confused over the past 5 days. Per EMS report she had a fall a few days ago when she was intoxicated. EKG appears sinus tachycardia, heart rate [address] elevation or depression, no ectopy. Normal intervals. T waves unremarkable. CT chest abdomen pelvis revealed severe hepatic steatosis and cholelithiasis with hydropic gallbladder and gastric bypass, no other acute findings. CT head with no acute hemorrhage. Labs with WBC 7.5, Hb 6.4, platelets 237, Na 130, K 4.3, BUN 10, Cr 2.3, glucose 72, Trop 0, BNP 939, Albumin 1.8, INR 4.9, ammonia 44, bilirubin 11, AST 2744, ALT 400, Alk phos 172, Lipase 42 Given concern for acute liver failure and acute renal failure patient accepted for transfer to [facility] for specialist consultation. Seen bedside with her , patient following very few commands, otherwise drowsy, not oriented, moaning, not articulating well or making meaningful eye contact. notes that sometimes this might happen for a week at a time at home and frightens their 11 and 17 year old children. He notes "it has been a rough year". She was released from incarceration in [place] last October after a DUI and parole violation of intoxication with alcohol that led to her serving 17 months in [place]. She has struggled with substance use disorder, specifically alcohol, according to her since her gastric bypass in 2008, has been previously treated for this as well as pancreatitis. Admitted to ICU for further treatment. Due to the inability to maintain a peripheral IV and concern for potential uncontrollable bleeding in the neck a right femoral central venous catheter was placed for medications, blood transfusion and lab draw purposes for frequent lab draws. Vitals/I&O Vitals/I&O: Vital Signs Date Time Temp Pulse Resp B/P (MAP) Pulse Ox O2 Delivery O2 Flow Rate FiO2 11/24/20 10:50 93 183/98 11/24/20 10:17 24 97 Nasal Cannula 4.0 11/24/20 08:00 99.3 99.3 I & O 11/23/20 11/23/20 11/24/20 15:00 23:00 07:00 Intake Total 655 ml 1150 ml 1515 ml Output Total 425 ml 875 ml 1085 ml Balance 230 ml 275 ml 430 ml Physical Exam Physical Exam: GENERAL: Somnolent, comfortable HEENT: Normocephalic, atraumatic. Sclerae icteric. NG tube+ NECK: Supple. LUNGS: Clear bilaterally. HEART: S1, S2. No murmurs. ABDOMEN: Obese, soft, Bowel sounds present, does not grimace on deep palpation EXTREMITIES: Edema present no cyanosis. GENITOURINARY: Wood in place. Fecal tube in place. Femoral line removed DERMATOLOGIC: No generalized rash. Multiple tattoos. CENTRAL NERVOUS SYSTEM: Somnolent, unable to assess Right upper extremity PICC line with dry blood General: Other (Unable to say words, but able to conciously moan) Heart: Regular rate Lungs: Wheezing Abdomen: Soft, Other (obese ) Extremities: No cyanosis Skin: No breakdown, Other (Visibly jaundiced.) Labs Labs: Laboratory Tests Test 11/24/20 00:05 11/24/20 05:30 11/24/20 05:50 11/24/20 06:39 Glucose (Fingerstick) 192 mg/dL (70-99) 173 mg/dL (70-99) White Blood Count 8.2 x10^3/uL (4.0-11.0) Red Blood Count 2.57 x10^6/uL (3.50-5.40) Hemoglobin 7.6 g/dL (12.0-15.5) Hematocrit 24.4 % (36.0-47.0) Mean Corpuscular Volume 95 fL (79-100) Mean Corpuscular Hemoglobin 29 pg (25-35) Mean Corpuscular Hemoglobin Concent 31 g/dL (31-37) Red Cell Distribution Width 20.5 % (11.5-14.5) Platelet Count 160 x10^3/uL (140-400) Prothrombin Time 22.1 SEC (11.7-14.0) Prothromb Time International Ratio 2.0 (0.8-1.1) Sodium Level 154 mmol/L (136-145) Potassium Level 3.8 mmol/L (3.5-5.1) Chloride Level 118 mmol/L (98-107) Carbon Dioxide Level 24 mmol/L (21-32) Anion Gap 12 (6-14) Blood Urea Nitrogen 11 mg/dL (7-20) Creatinine 0.6 mg/dL (0.6-1.0) Estimated GFR (Cockcroft-Gault) 110.2 Glucose Level 177 mg/dL (70-99) Calcium Level 8.7 mg/dL (8.5-10.1) Phosphorus Level 3.2 mg/dL (2.6-4.7) Magnesium Level 1.6 mg/dL (1.8-2.4) Total Bilirubin 5.9 mg/dL (0.2-1.0) Direct Bilirubin 3.8 mg/dL (0.0-0.2) Aspartate Amino Transf (AST/SGOT) 92 U/L (15-37) Alanine Aminotransferase (ALT/SGPT) 49 U/L (14-59) Alkaline Phosphatase 94 U/L (46-116) Total Protein 5.3 g/dL (6.4-8.2) Albumin 2.7 g/dL (3.4-5.0) Ammonia 26 mcmol/L (11-34) Assessment and Plan Assessmemt and Plan Assessment New onset wheezing Acute metabolic encephalopathy - seems likely hepatic in origin due fatty liver and alcoholic liver disease Acute anemia Acute renal failure Acute liver failure - MELD score on admit is 40 Acute hepatitis - possibly alcoholic etiology Hydropic gallbladder with gallbladder sludge per US Alcohol use disorder Plan Added in IV Vasotec and IV labetalol prn Nebulizers. Continue Lactulose + Rifaxamin Consider FFP for coagulopathy ICU monitoring [facility] protocol Trend labs DVT Prophylaxis Continue home medication Full code Prognosis guarded Appreciate subspecialist input CC time 32 Comment Review of Relevant I have reviewed the following items josue (where applicable) has been applied. Medications: Current Medications Medications (Trade) Dose Ordered Sig/Saud Route PRN Reason Start Time Stop Time Status Last Admin Dose Admin Potassium Acetate 50 meq/Potassium Phosphate 21 mmol/ Magnesium Sulfate 10 meq/Calcium Gluconate 10 meq/ Multivitamins 5 ml/Zinc/Copper/ Manganese/ Selenium 1 ml/ Thiamine HCl 100 mg/Folic Acid 1 mg/Total Parenteral Nutrition/Amino Acids/Dextrose 1,800 ml @ 75 mls/hr TPN CONT IV 11/23/20 22:00 11/24/20 21:59 11/23/20 21:54 Amlodipine Besylate (Norvasc) 10 mg DAILY PO 11/24/20 09:00 11/24/20 08:10 Labetalol HCl (Normodyne Iv Push) 20 mg PRN Q4HRS PRN IVP HYPERTENSION 11/24/20 09:30 11/24/20 10:40 DC 11/24/20 09:24 Enalaprilat (Vasotec Inj) 2.5 mg PRN Q6HRS PRN IVP HYPERTENSION-2ND CHOICE 11/24/20 10:15 11/24/20 10:16 Labetalol HCl (Normodyne Iv Push) 20 mg PRN Q2HR PRN IVP HYPERTENSION 11/24/20 10:45 11/24/20 10:50 Magnesium Sulfate 50 ml @ 25 mls/hr 1X ONCE IV 11/24/20 12:00 11/24/20 13:59 11/24/20 11:03 Justifications for Admission General Conditions Poss tachycardia?: Yes Justification for admission: Patient has tachycardia (> 100 beats per minute) which is not readily corrected by appropriate treatment within 12 to 24 hours. Poss Metaboilic Acidosis?: Yes Justification for admission: Patient has tachycardia (> 100 beats per minute) or hypotension (SBP < 90 mm Hg) leading to inadequate systemic perfusion as indicated by metabolic acidosis with arterial pH of less than 7.35. Altered mental status?: Yes Justification of admission: Patient has tachycardia (> 100 beats per minute) or hypotension (SBP < 90 mm Hg) leading to inadequate systemic perfusion as indicated by severe/persistent altered mental status. Other Justification MOOK CHRISTOPHER III DO Nov 24, 2020 11:16
[2020-11-24] MEDS ORDERED: MAGNESIUM SULFATE 2GM 50 ML IV ONE (12:00)
[2020-11-24] MEDS ORDERED: DEXTROSE 50% 25 GM / 50ML DISP.SYRIN. IV PRN ×2 (12:45)
--- NOTE | 2020-11-24 12:56 | PDOC ---
Date of Service: DATE: 11/24/20 TIME: 12:51 Objective: Objective: I talked w/ yesterday per nurse request - we discussed poor prognosis. Gave okay to use OGT for feeds if desired yesterday. D/w nurse today - anxious off Precedex, hypotension, no bleeding. Vital Signs: Vital Signs Date Time Temp Pulse Resp B/P (MAP) Pulse Ox O2 Delivery O2 Flow Rate FiO2 11/24/20 11:00 94 38 177/98 (124) 96 Nasal Cannula 4.0 11/24/20 08:00 99.3 99.3 Labs: Laboratory Tests Test 11/24/20 00:05 11/24/20 05:30 11/24/20 05:50 11/24/20 06:39 Glucose (Fingerstick) 192 mg/dL 173 mg/dL White Blood Count 8.2 x10^3/uL Red Blood Count 2.57 x10^6/uL Hemoglobin 7.6 g/dL Hematocrit 24.4 % Mean Corpuscular Volume 95 fL Mean Corpuscular Hemoglobin 29 pg Mean Corpuscular Hemoglobin Concent 31 g/dL Red Cell Distribution Width 20.5 % Platelet Count 160 x10^3/uL Prothrombin Time 22.1 SEC Prothromb Time International Ratio 2.0 Sodium Level 154 mmol/L Potassium Level 3.8 mmol/L Chloride Level 118 mmol/L Carbon Dioxide Level 24 mmol/L Anion Gap 12 Blood Urea Nitrogen 11 mg/dL Creatinine 0.6 mg/dL Estimated GFR (Cockcroft-Gault) 110.2 Glucose Level 177 mg/dL Calcium Level 8.7 mg/dL Phosphorus Level 3.2 mg/dL Magnesium Level 1.6 mg/dL Total Bilirubin 5.9 mg/dL Direct Bilirubin 3.8 mg/dL Aspartate Amino Transf (AST/SGOT) 92 U/L Alanine Aminotransferase (ALT/SGPT) 49 U/L Alkaline Phosphatase 94 U/L Total Protein 5.3 g/dL Albumin 2.7 g/dL Ammonia 26 mcmol/L Test 11/24/20 12:14 Glucose (Fingerstick) 182 mg/dL PE: GEN: ill LUNGS: tachypnea, wheezing HEART: borderline tachycardic ABD: soft, non-tender NEURO/PSYCH: awake, doesn't respond much A/P: Liver disease, encephalopathy Anemia - stable -- MELD 21. Continue support per GI. Justicifation of Admission Dx: Justifications for Admission: Justification of Admission Dx: Yes Sepsis: Altered Mental Status Altered Mental Status: Altered Mental Status CHAVA DUKE Nov 24, 2020 12:56
[2020-11-24] MEDS: DAPTOmycin (GENERIC) IVPB 470 MG in IV NORMAL SALINE 50ML 50 ML IV SCH (13:48)
[2020-11-24 14:43] LABS: BASE EXCESS ABG -3 mmol/L (-3-3); HCO3 ABG 19 mmol/L (21-28); PCO2 ABG 24 mmHg (35-46); PO2 ABG 57 mmHg (75-108); SAT O2 ABG 89 % (92-99)
[2020-11-24 14:45] LABS: FIO2 ABG 36
--- NOTE | 2020-11-24 14:56 | NUR ---
SS following up with discharge planning. SS reviewed pt chart and discussed with pt RN. Pt is currently requiring oxygen at four liters nasal canula. COVID19 negative. Pt on IV Zosyn and IV Daptomycin. TPN. Pt NPO. NG tube in place. Lactulose through NG tube. CIWA protocol. ETOH. Per RN, pt not a candidate for transplant. Pt not stable to be seen by PAT team today. SS will continue to follow for discharge planning.
[2020-11-24] MEDS: TPN PER PHARMACY MC PRN (15:59)
--- NOTE | 2020-11-24 16:00 | NUR ---
Pharmacy TPN Dosing Note S: KELLIE GARCIA is a 40 year old F Currently receiving Central Continuous TPN started 11/21/20 B:Pertinent PMH: NPO, liver failure Height: 5 feet, 5 inches Weight: 112.4 kg Current diet: NPO, tube feeds started 11/24 LABS: Sodium: 154 Potassium: 3.8 Chloride: 118 Calcium: 8.7 Corrected Calcium: 9.58 Magnesium: 1.6 CO2: 24 SCr: 0.6 Glucose: 177, 173, 182 Albumin: 2.9 AST: 111 ALT: 55 TPN FORMULA: TPN TYPE: Central Continuous AMINO ACIDS: 70 gm DEXTROSE: 250 gm POTASSIUM ACETATE: 50 mEq POTASSIUM PHOSPHATE: 21 mmol MAGNESIUM: 10 mEq CALCIUM: 10 mEq MULTIPLE VITAMIN: 5 ml TRACE ELEMENTS: 1 ml TPN PLAN: -Continue TPN until tube feeds at goal. -Sodium stable, high - cannot increase TPN rate due to cirrhosis, weight gain. -Serum magnesium low - give mag sulfate 2g IV bolus. -BMP, mag, phos tomorrow. R: Continue TPN @ 75 ml/hr and above formula. Will monitor electrolytes, glucose, and tolerance to TPN. LUCERO CUEVAS [facility], 11/24/20 1600
--- NOTE | 2020-11-24 16:00 | RAD ---
AP chest. HISTORY: Tachypnea AP view was taken of the chest. NG tube extends into the stomach. Right PICC line extends to the supe rior vena cava. There are bilateral hazy diffuse infiltrates or pulmonary edema. There is been worsen ing compared to the study of November 18. IMPRESSION: 1. Development of bilateral infiltrates or pulmonary edema. 2. PICC line in the proximal superior vena cava. 3. NG tube in the stomach. Electronically signed by: Philipp Aguirre MD (11/24/2020 3:58 PM) [place]
[2020-11-24] MEDS ORDERED: INSULIN LISPRO 300 UNITS/3 ML VIAL. SQ SCH ×2 (17:00)
[2020-11-24] MEDS ORDERED: DEXTROSE 70% IV SCH (22:00)
[2020-11-24] MEDS ORDERED: TOTAL PARENTERAL NUTRITION IV SCH (22:00)
[2020-11-24] MEDS ORDERED: AMINO ACID IV SCH (22:00)
[2020-11-24] MEDS ORDERED: [UNRECOGNIZED DRUG - OTHER] IV SCH (22:00)
[2020-11-25] VITALS (24 sets, daily range): BP systolic 117–167; BP diastolic 58–88
[2020-11-25] MEDS: PIPERACILLIN/TAZOBACTAM 3.375 GM in IV NORMAL SALINE 50ML 50 ML IV SCH ×4 (00:06→18:03)
[2020-11-25] MEDS: INSULIN LISPRO 300 UNITS/3 ML VIAL. SQ SCH ×4 (05:34→18:00)
[2020-11-25 06:22] LABS: ALBUMIN 2.6 g/dL (3.4-5.0); CALCIUM 9.1 mg/dL (8.5-10.1); CREATININE 0.6 mg/dL (0.6-1.0); GFR 110.2; PHOSPHORUS 3.3 mg/dL (2.6-4.7); POTASSIUM 3.5 mmol/L (3.5-5.1)
--- NOTE | 2020-11-25 06:31 | NUR ---
When bath being given at 0200, pt was able to clearly answer all orientation questions correctly, though she believed that she was at [facility] and was unaware of her transfer to this hospital. Continued to call out occasionally over the rest of shift. When asked what was needed, pt stated "to be left alone". Pt reminded that if she calls out for staff, we will come in.
[2020-11-25] MEDS: LABETALOL 20 MG/4 ML DISP.SYRIN. IVP PRN ×2 (07:46→14:48)
[2020-11-25] MEDS: ELECTROLYTE (ICU) PROTOCOL. MC SCH (09:00)
--- NOTE | 2020-11-25 09:35 | PDOC ---
Infectious Disease Note Subjective Subjective Lethargic No fevers last 24 hrs 4L O2 Diarrhea Tube feedings ROS ROS Unobtainable due to patient's condition Vital Sign Vital Signs Vital Signs Date Time Temp Pulse Resp B/P (MAP) Pulse Ox O2 Delivery O2 Flow Rate FiO2 11/25/20 07:46 111 162/77 11/25/20 06:00 32 100 Simple Mask 4.0 11/25/20 05:00 99.0 99.0 Physical Exam PHYSICAL EXAM GENERAL: Somnolent,no distress HEENT: Sclerae icteric. NG tube in place. Oral cavity is dry. NECK: Supple. LUNGS: Clear bilaterally. HEART: S1, S2. No murmurs. Regular. ABDOMEN: Obese, soft, Bowel sounds present, does not grimace on deep palpation. + rectal tube : Wood EXTREMITIES: Edema present no cyanosis. DERMATOLOGIC: No generalized rash. Multiple tattoos. CENTRAL NERVOUS SYSTEM: Somnolent, unable to assess Right upper extremity PICC line, some bruising present. Labs Lab Laboratory Tests Test 11/24/20 12:14 11/24/20 14:35 11/24/20 17:15 11/25/20 00:03 Glucose (Fingerstick) 182 mg/dL (70-99) 152 mg/dL (70-99) 127 mg/dL (70-99) O2 Saturation 89 % (92-99) Arterial Blood pH 7.52 (7.35-7.45) Arterial Blood pCO2 at Patient Temp 24 mmHg (35-46) Arterial Blood pO2 at Patient Temp 57 mmHg (75-108) Arterial Blood HCO3 19 mmol/L (21-28) Arterial Blood Base Excess -3 mmol/L (-3-3) FiO2 36 Test 11/25/20 05:30 11/25/20 05:32 Sodium Level 148 mmol/L (136-145) Potassium Level 3.5 mmol/L (3.5-5.1) Chloride Level 115 mmol/L (98-107) Carbon Dioxide Level 23 mmol/L (21-32) Anion Gap 10 (6-14) Blood Urea Nitrogen 9 mg/dL (7-20) Creatinine 0.6 mg/dL (0.6-1.0) Estimated GFR (Cockcroft-Gault) 110.2 Glucose Level 128 mg/dL (70-99) Calcium Level 9.1 mg/dL (8.5-10.1) Phosphorus Level 3.3 mg/dL (2.6-4.7) Magnesium Level 1.6 mg/dL (1.8-2.4) Albumin 2.6 g/dL (3.4-5.0) Glucose (Fingerstick) 134 mg/dL (70-99) CXR 1. Development of bilateral infiltrates or pulmonary edema. 2. PICC line in the proximal superior vena cava. 3. NG tube in the stomach. Micro Microbiology 11/22/20 URINE CULTURE Final 80,000 CFU/ML YEAST on 11/24/20 at 1318 FINAL ID= [[email or web address] [email or web address]] Testing Performed by: 11/22/20 Blood Culture - Preliminary, Resulted NO GROWTH AFTER 2 DAYS Objective Assessment Sepsis Fever Portosystemic encephalopathy Acute liver failure, likely from alcoholism with hyperbilirubinemia. Acute renal failure. Anemia. Status post PRBC Coagulopathy. Protein-calorie malnutrition. History of gastroesophageal reflux disease, GI bleed, gastritis, pancreatitis, peptic ulcer disease. History of anxiety and depression. Hydropic gallbladder with hepatic steatosis. Femoral line removed Diarrhea on lactulose. C. diff neg, 11/22. Yeast in urine, 11/22. Plan Plan of Care Continue Zosyn/ daptomycin Doppler ultrasound of right upper extremity neg for DVT Change Wood cath Follow up labs and cultures. Femoral line been discontinued Continue supportive care. Maintain aspiration precaution. Critically ill A little fever this am but was bundled up per nursing. Wood just changed Cont abx Attending Co-Sign Attending Co-Sign The patient was seen and interviewed as well as examined at the bedside. The chart was reviewed. The case was discussed. Agree with the plan of care. RYAN GARIBAY APRN Nov 25, 2020 09:35 WHITNEY HARRIS MD Nov 25, 2020 14:51
[2020-11-25] MEDS: rifAXIMin 550 MG TABLET PO SCH ×2 (09:46→21:16)
[2020-11-25] MEDS: amLODIPine BESYLATE 10 MG TABLET PO SCH (09:46)
[2020-11-25] MEDS: PANTOPRAZOLE IV PUSH 40 MG VIAL. IVP SCH ×2 (09:46→21:16)
[2020-11-25] MEDS: LACTULOSE 20 GM/30 ML SOLUTION. FT SCH ×4 (09:46→21:16)
--- NOTE | 2020-11-25 10:46 | NUR ---
Wood replaced at this time. Old cath intact and no problem noted. Urine continues to be dayana and cloudy. Patient still having watery stools and rectal tube in place.
--- NOTE | 2020-11-25 11:02 | PDOC ---
[employer] PROGRESS NOTE Date of Service DOS: DATE: 11/25/20 TIME: 10:53 Chief Complaint Chief Complaint Confusion History of Present Illness History of Present Illness 11/25/2020 Patient seen and examined in ICU Remains extremely encephalopathic Spoke with RN Spoke with patient's on the phone, he is distraught over her condition. Blood pressure still high Fever today of 100.6. 11/24/2020 Patient seen and examined in the ICU She remains extremely encephalopathic Eyes open but does not really make eye contact Discussed with RN Her pressures are running high Have added an IV labetalol and IV Vasotec Prognosis guarded and she is still critically ill 11/23/20 Patient seen and examined in ICU Chart review, discussed with nursing and keycase assembler Still visibly jaundiced, tried to speak but unable to form words Lab work improving since beginning lactulose and rifaxamin. Bilirubin down. Patient did have new onset wheezing today and spoke to nursing about starting PRN nebulizers. 11/22/20 Patient seen and examined in the ICU Chart reviewed, discussed with nursing and keycase assembler Still visibly jaundiced, encephalopathic, but eyes open. Anemia - 6.8. WBC count up to 81. PEG not tolerated. GI considering TPN Patient started on lactulose + rifaxamin per GI FFP being considered for coagulopathy. 11/21/20 Patient seen and examined in the ICU Chart reviewed Still visibly jaundiced Respiratory rate improved to around 25 today, was around 30-35 yesterday. Anemia improving; at Hgb of 6.6 today. Ordered 1 unit PRBC this morning. Hypothermia resolved; temp today 98.1 WBC count improved to 6. Patient now on PEG tube. Dex for sedation Octreotide drip IV Protonix Continue rectal bag Wood to BSD in place 11/20/20 Patient seen and examined in the ICU Chart reviewed She is visibly jaundiced Very anemic with HBG at 2.44 Hypothermic today with temp of 97.5 F (04:00), up from 94.4 F yesterday (20:00) White blood cells trending downward from normal, today WBC are 3.7 Dex for sedation Octreotide drip in the room IV Protonix going Continue rectal bag Wood to BSD in place 11/19/20 VERY ANEMIC, HYPOTENSIVE 4-17 MELD score on admit is 40, PROGNOSIS VERY GUARDED ECHO pending, cardiology consulted Stools slightly red per RN NH4 pending IONIZED CA 1.05 VIT D LEVEL pending 11/18/20 VERY ANEMIC, HYPOTENSIVE OVERNIGHT ECHO pending, cardiology consulted NH4 pending ID CONSULT NEUROLOGY CONSULT Gen Surg consult 11/17/20 Ms Phipps is a 40yo F w/ PMHx morbid obesity s/p gastric bypass ini 2008, alcohol use disorder, Anxiety, Depression, Hypertension, IBS, Kidney Stones, Pancreatitis, chronic back pain, and smoker who presented to [facility] ED in [place], [place] via EMS for altered mental status. Her called because patient has been on couch has been increasingly confused over the past 5 days. Per EMS report she had a fall a few days ago when she was intoxicated. EKG appears sinus tachycardia, heart rate [address] elevation or depression, no ectopy. Normal intervals. T waves unremarkable. CT chest abdomen pelvis revealed severe hepatic steatosis and cholelithiasis with hydropic gallbladder and gastric bypass, no other acute findings. CT head with no acute hemorrhage. Labs with WBC 7.5, Hb 6.4, platelets 237, Na 130, K 4.3, BUN 10, Cr 2.3, glucose 72, Trop 0, BNP 939, Albumin 1.8, INR 4.9, ammonia 44, bilirubin 11, AST 2744, ALT 400, Alk phos 172, Lipase 42 Given concern for acute liver failure and acute renal failure patient accepted for transfer to [facility] for specialist consultation. Seen bedside with her , patient following very few commands, otherwise drowsy, not oriented, moaning, not articulating well or making meaningful eye contact. notes that sometimes this might happen for a week at a time at home and frightens their 11 and 17 year old children. He notes "it has been a rough year". She was released from incarceration in federal custodial last October after a DUI and parole violation of intoxication with alcohol that led to her serving 17 months in federal custodial [place]. She has struggled with substance use disorder, specifically alcohol, according to her since her gastric bypass in 2008, has been previously treated for this as well as pancreatitis. Admitted to ICU for further treatment. Due to the inability to maintain a peripheral IV and concern for potential uncontrollable bleeding in the neck a right femoral central venous catheter was placed for medications, blood transfusion and lab draw purposes for frequent lab draws. Vitals/I&O Vitals/I&O: Vital Signs Date Time Temp Pulse Resp B/P (MAP) Pulse Ox O2 Delivery O2 Flow Rate FiO2 11/25/20 09:46 102 141/76 11/25/20 08:00 Nasal Cannula 4.0 11/25/20 06:00 32 100 11/25/20 05:00 99.0 99.0 I & O 11/24/20 11/24/20 11/25/20 15:00 23:00 07:00 Intake Total 250 ml 637 ml 1214.7 ml Output Total 575 ml 1025 ml 2150 ml Balance -325 ml -388 ml -935.3 ml Physical Exam Physical Exam: GENERAL: Somnolent,no distress HEENT: Sclerae icteric. NG tube in place. Oral cavity is dry. NECK: Supple. LUNGS: Clear bilaterally. HEART: S1, S2. No murmurs. Regular. ABDOMEN: Obese, soft, Bowel sounds present, does not grimace on deep palpation. + rectal tube : Wood EXTREMITIES: Edema present no cyanosis. DERMATOLOGIC: No generalized rash. Multiple tattoos. CENTRAL NERVOUS SYSTEM: Somnolent, unable to assess Right upper extremity PICC line, some bruising present. General: mild distress (Spoke a few words today, but still extremely ill) Heart: Regular rate Lungs: Wheezing Abdomen: Soft, Other (obese ) Extremities: No cyanosis Skin: No breakdown, Other (Visibly jaundiced.) Labs Labs: Laboratory Tests Test 11/24/20 12:14 11/24/20 14:35 11/24/20 17:15 11/25/20 00:03 Glucose (Fingerstick) 182 mg/dL (70-99) 152 mg/dL (70-99) 127 mg/dL (70-99) O2 Saturation 89 % (92-99) Arterial Blood pH 7.52 (7.35-7.45) Arterial Blood pCO2 at Patient Temp 24 mmHg (35-46) Arterial Blood pO2 at Patient Temp 57 mmHg (75-108) Arterial Blood HCO3 19 mmol/L (21-28) Arterial Blood Base Excess -3 mmol/L (-3-3) FiO2 36 Test 11/25/20 05:30 11/25/20 05:32 Sodium Level 148 mmol/L (136-145) Potassium Level 3.5 mmol/L (3.5-5.1) Chloride Level 115 mmol/L (98-107) Carbon Dioxide Level 23 mmol/L (21-32) Anion Gap 10 (6-14) Blood Urea Nitrogen 9 mg/dL (7-20) Creatinine 0.6 mg/dL (0.6-1.0) Estimated GFR (Cockcroft-Gault) 110.2 Glucose Level 128 mg/dL (70-99) Calcium Level 9.1 mg/dL (8.5-10.1) Phosphorus Level 3.3 mg/dL (2.6-4.7) Magnesium Level 1.6 mg/dL (1.8-2.4) Albumin 2.6 g/dL (3.4-5.0) Glucose (Fingerstick) 134 mg/dL (70-99) Assessment and Plan Assessmemt and Plan Assessment New onset fever Acute metabolic encephalopathy - seems likely hepatic in origin due fatty liver and alcoholic liver disease Coagulopathy Acute anemia Acute renal failure Acute liver failure - MELD score on admit is 40 Acute hepatitis - possibly alcoholic etiology Hydropic gallbladder with gallbladder sludge per [place] Wheezing Alcohol use disorder Plan Treat fever with ibuprofen 600mg q6 hours prn IV Vasotec and IV labetalol prn prn Nebulizers. INR improved to 2.0 yesterday. Repeat CBC and coag study today ICU monitoring [place] protocol Trend labs DVT Prophylaxis Continue home medication Full code Prognosis guarded Appreciate subspecialist input CC time 32 Comment Review of Relevant I have reviewed the following items josue (where applicable) has been applied. Medications: Current Medications Medications (Trade) Dose Ordered Sig/Saud Route PRN Reason Start Time Stop Time Status Last Admin Dose Admin Magnesium Sulfate 50 ml @ 25 mls/hr 1X ONCE IV 11/24/20 12:00 11/24/20 13:59 DC 11/24/20 11:03 Nicardipine HCl 50 mg/Sodium Chloride 250 ml @ 25 mls/hr CONT PRN IV SEE I/O RECORD 11/24/20 12:45 11/24/20 22:35 Justifications for Admission General Conditions Poss tachycardia?: Yes Justification for admission: Patient has tachycardia (> 100 beats per minute) which is not readily corrected by appropriate treatment within 12 to 24 hours. Poss Metaboilic Acidosis?: Yes Justification for admission: Patient has tachycardia (> 100 beats per minute) or hypotension (SBP < 90 mm Hg) leading to inadequate systemic perfusion as indicated by metabolic acidosis with arterial pH of less than 7.35. Altered mental status?: Yes Justification of admission: Patient has tachycardia (> 100 beats per minute) or hypotension (SBP < 90 mm Hg) leading to inadequate systemic perfusion as indicated by severe/persistent altered mental status. Other Justification MOOK CHRISTOPHER III DO Nov 25, 2020 11:02
--- NOTE | 2020-11-25 11:26 | PDOC ---
Renal-Progress Notes Subjective Notes Notes NO COMPLAINTS History of Present Illness Hx of present illness NO ACUTE CHANGES Vitals Vitals Vital Signs Date Time Temp Pulse Resp B/P (MAP) Pulse Ox O2 Delivery O2 Flow Rate FiO2 11/25/20 11:00 103 38 155/83 (107) 99 Nasal Cannula 4.0 11/25/20 08:00 100.2 100.2 Weight Weight [ ] I.O. Intake and Output Intake and Output 11/25/20 07:00 Intake Total 2101.7 ml Output Total 3750 ml Balance -1648.3 ml Intake Oral 250 ml IV Total 757.7 ml Tube Feeding 323 ml Other 771 ml Output Urine Total 3250 ml Stool Total 500 ml Chest Tube Drainage Total 0 ml Labs Labs Laboratory Tests Test 11/24/20 12:14 11/24/20 14:35 11/24/20 17:15 11/25/20 00:03 Glucose (Fingerstick) 182 mg/dL (70-99) 152 mg/dL (70-99) 127 mg/dL (70-99) O2 Saturation 89 % (92-99) Arterial Blood pH 7.52 (7.35-7.45) Arterial Blood pCO2 at Patient Temp 24 mmHg (35-46) Arterial Blood pO2 at Patient Temp 57 mmHg (75-108) Arterial Blood HCO3 19 mmol/L (21-28) Arterial Blood Base Excess -3 mmol/L (-3-3) FiO2 36 Test 11/25/20 05:30 11/25/20 05:32 Sodium Level 148 mmol/L (136-145) Potassium Level 3.5 mmol/L (3.5-5.1) Chloride Level 115 mmol/L (98-107) Carbon Dioxide Level 23 mmol/L (21-32) Anion Gap 10 (6-14) Blood Urea Nitrogen 9 mg/dL (7-20) Creatinine 0.6 mg/dL (0.6-1.0) Estimated GFR (Cockcroft-Gault) 110.2 Glucose Level 128 mg/dL (70-99) Calcium Level 9.1 mg/dL (8.5-10.1) Phosphorus Level 3.3 mg/dL (2.6-4.7) Magnesium Level 1.6 mg/dL (1.8-2.4) Albumin 2.6 g/dL (3.4-5.0) Glucose (Fingerstick) 134 mg/dL (70-99) Micro Micro Microbiology 11/22/20 Urine Culture - Final, Complete 11/22/20 Blood Culture - Preliminary, Resulted NO GROWTH AFTER 2 DAYS Review of Systems Constitutional: yes: other (CONFUSED) Physical Exam General Appearance: no apparent distress Skin: warm Respiratory: decreased breath sounds Heart: S1S2 Abdomen: soft, bowel sounds present Genitourinary: bladder flat Neurology: alert, confused, other Assessment Assessment IMP EARL-RESOLVED HYPOMAGNESEMIA HYPERNATREMIA-IMPROVED LIVER FAILURE ETOH ABUSE ENCEPHALOPATHY SEPSIS PLAN REPLACE MAG ALBUMIN NEEDED ANTIBIOTICS LABS IN AM JOSE ANGEL HA MD Nov 25, 2020 11:25
[2020-11-25] MEDS ORDERED: MAGNESIUM SULFATE 2GM 50 ML IV ONE (12:00)
--- NOTE | 2020-11-25 12:48 | PDOC ---
PROGRESS NOTES Date of Service DATE: 11/25/20 TIME: 12:46 Assessment Metabolic encephalopathy Pancreatitis, liver failure, renal failure, pancreatitis, history of gastric bypass for obesity, sepsis, hypothermia, anemia, coagulopathy, GERD, history of GI bleed and gastritis, history of anxiety and depression, hydropic gallbladder, hepatic steatosis, diarrhea on lactulose Plan No additional neurological studies planned Treat medical diseases On thiamine, dexmedetomidine, rifaximin, and lactulose Subjective None Objective Vital Signs Date Time Temp Pulse Resp B/P (MAP) Pulse Ox O2 Delivery O2 Flow Rate FiO2 11/25/20 11:00 103 38 155/83 (107) 99 Nasal Cannula 4.0 11/25/20 08:00 100.2 100.2 Intake and Output0 11/25/20 07:00 Intake Total 2101.7 ml Output Total 3750 ml Balance -1648.3 ml Intake Oral 250 ml IV Total 757.7 ml Tube Feeding 323 ml Other 771 ml Output Urine Total 3250 ml Stool Total 500 ml Chest Tube Drainage Total 0 ml PHYSICAL EXAM Jaundiced Eyes closed, arouses a little bit to pain, nonverbal, follows commands PERRL. EOMI. CN: no focal findings. Muscle tone: normal. Muscle strength: Moves all 4 extremities to command DTR: 1+ Plantar reflex: Flexor Gait: not examined in bed. Sensory exam: Not cooperative. Cerebellar: Not cooperative Review of Relevant I have reviewed the following items josue (where applicable) has been applied. Labs Laboratory Tests Test 11/24/20 00:05 11/24/20 05:30 11/24/20 05:50 11/24/20 06:39 Glucose (Fingerstick) 192 mg/dL (70-99) 173 mg/dL (70-99) White Blood Count 8.2 x10^3/uL (4.0-11.0) Red Blood Count 2.57 x10^6/uL (3.50-5.40) Hemoglobin 7.6 g/dL (12.0-15.5) Hematocrit 24.4 % (36.0-47.0) Mean Corpuscular Volume 95 fL (79-100) Mean Corpuscular Hemoglobin 29 pg (25-35) Mean Corpuscular Hemoglobin Concent 31 g/dL (31-37) Red Cell Distribution Width 20.5 % (11.5-14.5) Platelet Count 160 x10^3/uL (140-400) Prothrombin Time 22.1 SEC (11.7-14.0) Prothromb Time International Ratio 2.0 (0.8-1.1) Sodium Level 154 mmol/L (136-145) Potassium Level 3.8 mmol/L (3.5-5.1) Chloride Level 118 mmol/L (98-107) Carbon Dioxide Level 24 mmol/L (21-32) Anion Gap 12 (6-14) Blood Urea Nitrogen 11 mg/dL (7-20) Creatinine 0.6 mg/dL (0.6-1.0) Estimated GFR (Cockcroft-Gault) 110.2 Glucose Level 177 mg/dL (70-99) Calcium Level 8.7 mg/dL (8.5-10.1) Phosphorus Level 3.2 mg/dL (2.6-4.7) Magnesium Level 1.6 mg/dL (1.8-2.4) Total Bilirubin 5.9 mg/dL (0.2-1.0) Direct Bilirubin 3.8 mg/dL (0.0-0.2) Aspartate Amino Transf (AST/SGOT) 92 U/L (15-37) Alanine Aminotransferase (ALT/SGPT) 49 U/L (14-59) Alkaline Phosphatase 94 U/L (46-116) Total Protein 5.3 g/dL (6.4-8.2) Albumin 2.7 g/dL (3.4-5.0) Ammonia 26 mcmol/L (11-34) Test 11/24/20 12:14 11/24/20 14:35 11/24/20 17:15 11/25/20 00:03 Glucose (Fingerstick) 182 mg/dL (70-99) 152 mg/dL (70-99) 127 mg/dL (70-99) O2 Saturation 89 % (92-99) Arterial Blood pH 7.52 (7.35-7.45) Arterial Blood pCO2 at Patient Temp 24 mmHg (35-46) Arterial Blood pO2 at Patient Temp 57 mmHg (75-108) Arterial Blood HCO3 19 mmol/L (21-28) Arterial Blood Base Excess -3 mmol/L (-3-3) FiO2 36 Test 11/25/20 05:30 11/25/20 05:32 Sodium Level 148 mmol/L (136-145) Potassium Level 3.5 mmol/L (3.5-5.1) Chloride Level 115 mmol/L (98-107) Carbon Dioxide Level 23 mmol/L (21-32) Anion Gap 10 (6-14) Blood Urea Nitrogen 9 mg/dL (7-20) Creatinine 0.6 mg/dL (0.6-1.0) Estimated GFR (Cockcroft-Gault) 110.2 Glucose Level 128 mg/dL (70-99) Calcium Level 9.1 mg/dL (8.5-10.1) Phosphorus Level 3.3 mg/dL (2.6-4.7) Magnesium Level 1.6 mg/dL (1.8-2.4) Albumin 2.6 g/dL (3.4-5.0) Glucose (Fingerstick) 134 mg/dL (70-99) Laboratory Tests Test 11/24/20 14:35 11/24/20 17:15 11/25/20 00:03 11/25/20 05:30 O2 Saturation 89 % (92-99) Arterial Blood pH 7.52 (7.35-7.45) Arterial Blood pCO2 at Patient Temp 24 mmHg (35-46) Arterial Blood pO2 at Patient Temp 57 mmHg (75-108) Arterial Blood HCO3 19 mmol/L (21-28) Arterial Blood Base Excess -3 mmol/L (-3-3) FiO2 36 Glucose (Fingerstick) 152 mg/dL (70-99) 127 mg/dL (70-99) Sodium Level 148 mmol/L (136-145) Potassium Level 3.5 mmol/L (3.5-5.1) Chloride Level 115 mmol/L (98-107) Carbon Dioxide Level 23 mmol/L (21-32) Anion Gap 10 (6-14) Blood Urea Nitrogen 9 mg/dL (7-20) Creatinine 0.6 mg/dL (0.6-1.0) Estimated GFR (Cockcroft-Gault) 110.2 Glucose Level 128 mg/dL (70-99) Calcium Level 9.1 mg/dL (8.5-10.1) Phosphorus Level 3.3 mg/dL (2.6-4.7) Magnesium Level 1.6 mg/dL (1.8-2.4) Albumin 2.6 g/dL (3.4-5.0) Test 11/25/20 05:32 Glucose (Fingerstick) 134 mg/dL (70-99) Microbiology 11/22/20 Urine Culture - Final, Complete 11/22/20 Blood Culture - Preliminary, Resulted NO GROWTH AFTER 2 DAYS Medications Current Medications Lorazepam (Ativan Inj) 0.5 mg PRN Q6HRS PRN IVP ANXIETY / AGITATION Last administered on 11/18/20at 18:10; Start 11/17/20 at 16:15; Stop 11/19/20 at 01:14; Status DC Ondansetron HCl (Zofran) 4 mg PRN Q6HRS PRN IVP NAUSEA/VOMITING, 1ST CHOICE; Start 11/17/20 at 16:15 Prochlorperazine Edisylate (Compazine) 5 mg PRN Q6HRS PRN IVP NAUSEA/VOMITING, 2ND CHOICE; Start 11/17/20 at 16:15 Info (Icu Electrolyte Protocol) 1 ea DAILY MC Last administered on 11/23/20at 08:14; Start 11/18/20 at 09:00 Sodium Chloride (Normal Saline Flush) 3 ml QSHIFT PRN IV AFTER MEDS AND BLOOD DRAWS; Start 11/17/20 at 16:15 Sodium Chloride 1,000 ml @ 1,000 mls/hr Q1H IV Last administered on 11/17/20at 17:50; Start 11/17/20 at 16:15; Stop 11/17/20 at 17:14; Status DC Fentanyl Citrate (Fentanyl 2ml Vial) 25 mcg PRN Q1HR PRN IV PAIN Last administered on 11/24/20at 09:28; Start 11/17/20 at 16:15 Lactulose (Lactulose) 20 gm PRN Q12HR PRN PO CONSTIPATION; Start 11/17/20 at 16:15; Stop 11/17/20 at 17:40; Status DC Bisacodyl (Dulcolax Supp) 10 mg PRN DAILY PRN [place] CONSTIPATION; Start 11/17/20 at 16:15 Pantoprazole Sodium (PROTONIX VIAL for IV PUSH) 40 mg DAILYAC IVP ; Start 11/18/20 at 07:30; Stop 11/17/20 at 17:40; Status DC Lactulose (LACTULOSE 300ML for RECTAL) 200 gm Q6HRS OH ; Start 11/17/20 at 18:00; Stop 11/17/20 at 17:40; Status DC Sodium Bicarbonate 75 meq/Sodium Chloride 1,075 ml @ 125 mls/hr Q8H36M IV Last administered on 11/19/20at 05:44; Start 11/17/20 at 17:00; Stop 11/19/20 at 09:16; Status DC Pantoprazole Sodium (PROTONIX VIAL for IV PUSH) 80 mg 1X ONCE IVP Last administered on 11/17/20at 17:50; Start 11/17/20 at 18:00; Stop 11/17/20 at 18:01; Status DC Pantoprazole Sodium 80 mg/ Sodium Chloride 100 ml @ 10 mls/hr Q10H IV Last administered on 11/21/20at 12:30; Start 11/17/20 at 18:00; Stop 11/21/20 at 13:52; Status DC Octreotide Acetate 500 mcg/ Sodium Chloride 101 ml @ 10.1 mls/hr CONT PRN IV SEE I/O RECORD Last administered on 11/21/20at 12:30; Start 11/17/20 at 17:30; Stop 11/21/20 at 13:52; Status DC Lactulose (LACTULOSE 300ML for RECTAL) 200 gm Q2HR [place] Last administered on 11/20/20at 13:23; Start 11/17/20 at 18:00; Stop 11/20/20 at 19:16; Status DC Magnesium Sulfate 50 ml @ 25 mls/hr 1X ONCE IV Last administered on 11/17/20at 18:34; Start 11/17/20 at 18:30; Stop 11/17/20 at 20:29; Status DC Albumin Human 500 ml @ 125 mls/hr PRN DAILY PRN IV HYPOTENSION Last administered on 11/18/20at 01:47; Start 11/18/20 at 00:15 Multivitamins 10 ml/Thiamine HCl 100 mg/Folic Acid 1 mg/Sodium Chloride 1,011.2 ml @ 100 mls/ hr DAILY IV Last administered on 11/21/20at 09:17; Start 11/18/20 at 09:00; Stop 11/21/20 at 13:58; Status DC Thiamine HCl 100 mg/Dextrose 51 ml @ 100 mls/hr DAILY IV ; Start 11/23/20 at 09:00; Stop 11/27/20 at 09:31; Status Cancel Lorazepam (Ativan) 2 mg Q6H PO ; Start 11/18/20 at 08:00; Stop 11/19/20 at 01:14; Status DC Lactulose (Lactulose) 30 gm PRN DAILY PRN PO GI SYMPTOMS; Start 11/18/20 at 08:00; Status UNV Lactulose (Lactulose) 30 gm PRN DAILY PRN PO GI SYMPTOMS; Start 11/18/20 at 08:30; Status UNV Piperacillin Sod/ Tazobactam Sod (Zosyn Per Pharmacy) 1 each PRN DAILY PRN MC SEE COMMENTS; Start 11/18/20 at 12:00 Piperacillin Sod/ Tazobactam Sod 3.375 gm/Sodium Chloride 50 ml @ 100 mls/hr Q6HRS IV Last administered on 11/25/20at 05:34; Start 11/18/20 at 12:00 Phytonadione (Vitamin K Ampule) 5 mg 1X ONCE SQ Last administered on 11/18/20at 12:50; Start 11/18/20 at 12:15; Stop 11/18/20 at 12:16; Status DC Lorazepam (Ativan Inj) 2 mg PRN Q1HR PRN IV For CIWA 8-14 Last administered on 11/25/20at 07:46; Start 11/18/20 at 18:15 Potassium Chloride/Water 100 ml @ 100 mls/hr Q1H IV Last administered on 11/19/20at 09:30; Start 11/19/20 at 08:30; Stop 11/19/20 at 10:29; Status DC Magnesium Sulfate 50 ml @ 25 mls/hr PRN DAILY PRN IV for Mag < 1.7 on am labs; Start 11/19/20 at 08:30 Albumin Human 100 ml @ 100 mls/hr TID IV Last administered on 11/20/20at 22:11; Start 11/19/20 at 10:00; Stop 11/20/20 at 21:59; Status DC Lorazepam (Ativan Inj) 4 mg PRN Q1HR PRN IV For CIWA 15 or greater Last administered on 11/25/20at 11:03; Start 11/19/20 at 10:00 Dexmedetomidine HCl 400 mcg/ Sodium Chloride 100 ml @ 0 mls/hr CONT PRN IV PER PROTOCOL Last administered on 11/24/20at 11:06; Start 11/19/20 at 10:00 Sodium Chloride 500 ml @ 500 mls/hr 1X PRN PRN IV SEE COMMENTS; Start 11/19/20 at 10:00 Atropine Sulfate (ATROPINE 0.5mg SYRINGE) 0.5 mg PRN Q5MIN PRN IV SEE COMMENTS; Start 11/19/20 at 10:00 Calcium Gluconate 1000 mg/Sodium Chloride 110 ml @ 220 mls/hr 1X ONCE IV ; Start 11/19/20 at 14:00; Stop 11/19/20 at 14:29; Status UNV Calcium Gluconate 1000 mg/Sodium Chloride 110 ml @ 220 mls/hr 1X ONCE IV Last administered on 11/19/20at 14:29; Start 11/19/20 at 15:00; Stop 11/19/20 at 15:29; Status DC Potassium Chloride/Water 100 ml @ 100 mls/hr Q1H IV Last administered on 11/20/20at 16:11; Start 11/20/20 at 10:30; Stop 11/20/20 at 14:29; Status DC Lactulose (Lactulose) 20 gm QID FT Last administered on 11/25/20at 09:46; Start 11/20/20 at 17:00 Lactulose (Lactulose) 20 gm STK-MED ONCE .ROUTE ; Start 11/20/20 at 16:09; Stop 11/20/20 at 16:09; Status DC Albumin Human 100 ml @ As Directed STK-MED ONCE IV ; Start 11/20/20 at 22:06; Stop 11/20/20 at 22:07; Status DC Lactulose (Lactulose) 20 gm STK-MED ONCE .ROUTE ; Start 11/20/20 at 22:07; Stop 11/20/20 at 22:07; Status DC Lactulose (Lactulose) 20 gm STK-MED ONCE .ROUTE ; Start 11/21/20 at 09:04; Stop 11/21/20 at 09:05; Status DC Potassium Chloride/Water 100 ml @ 100 mls/hr Q1H IV Last administered on 11/21/20at 11:16; Start 11/21/20 at 09:30; Stop 11/21/20 at 11:29; Status DC Rifaximin (Xifaxan) 550 mg Q12HR PO Last administered on 11/25/20at 09:46; Start 11/21/20 at 12:30 Info (Tpn Per Pharmacy) 1 each PRN DAILY PRN MC SEE COMMENTS Last administered on 11/24/20at 15:59; Start 11/21/20 at 14:00; Stop 11/24/20 at 18:58; Status DC Potassium Phosphate 15 mmol/ Sodium Chloride 255 ml @ 127.5 mls/ hr 1X ONCE IV Last administered on 11/21/20at 14:19; Start 11/21/20 at 14:00; Stop 11/21/20 at 15:59; Status DC Pantoprazole Sodium (PROTONIX VIAL for IV PUSH) 40 mg BID IVP Last administered on 11/25/20at 09:46; Start 11/21/20 at 21:00 Potassium Chloride 50 meq/ Potassium Phosphate 13.6 mmol/Magnesium Sulfate 10 meq/ Calcium Gluconate 10 meq/ Multivitamins 5 ml/Zinc/Copper/ Manganese/ Selenium 1 ml/ Thiamine HCl 100 mg/Folic Acid 1 mg/Total Parenteral Nutrition/Amino Acids/Dextrose/ Fat Emuls... 1,800 ml @ 75 mls/hr TPN CONT IV Last administered on 11/21/20at 22:55; Start 11/21/20 at 22:00; Stop 11/22/20 at 21:59; Status DC Rifaximin (Xifaxan) 550 mg STK-MED ONCE PO ; Start 11/21/20 at 14:17; Stop 11/21/20 at 14:17; Status DC Lactulose (Lactulose) 20 gm STK-MED ONCE .ROUTE ; Start 11/21/20 at 14:17; Stop 11/21/20 at 14:17; Status DC Daptomycin 470 mg/ Sodium Chloride 50 ml @ 100 mls/hr Q24H IV Last administered on 11/24/20at 13:48; Start 11/22/20 at 13:00 Potassium Phosphate 15 mmol/ Sodium Chloride 255 ml @ 127.5 mls/ hr 1X ONCE IV Last administered on 11/22/20at 13:20; Start 11/22/20 at 14:00; Stop 11/22/20 at 15:59; Status DC Potassium Acetate 50 meq/Potassium Phosphate 18 mmol/ Magnesium Sulfate 10 meq/Calcium Gluconate 10 meq/ Multivitamins 5 ml/Zinc/Copper/ Manganese/ Selenium 1 ml/ Thiamine HCl 100 mg/Folic Acid 1 mg/Total Parenteral Nutrition/Amino Acids/Dextrose 1,800 ml @ 75 mls/hr TPN CONT IV Last administered on 11/22/20at 21:37; Start 11/22/20 at 22:00; Stop 11/23/20 at 21:59; Status DC Potassium Chloride/Water 100 ml @ 100 mls/hr 1X ONCE IV Last administered on 11/22/20at 15:20; Start 11/22/20 at 16:00; Stop 11/22/20 at 16:59; Status DC Albuterol Sulfate (Ventolin Neb Soln) 2.5 mg PRN Q4HRS PRN NEB SHORTNESS OF BREATH Last administered on 11/23/20at 11:53; Start 11/23/20 at 09:15 Potassium Phosphate 15 mmol/ Sodium Chloride 255 ml @ 127.5 mls/ hr 1X ONCE IV Last administered on 11/23/20at 10:39; Start 11/23/20 at 11:00; Stop 11/23/20 at 12:59; Status DC Potassium Acetate 50 meq/Potassium Phosphate 21 mmol/ Magnesium Sulfate 10 meq/C alcium Gluconate 10 meq/ Multivitamins 5 ml/Zinc/Copper/ Manganese/ Selenium 1 ml/ Thiamine HCl 100 mg/Folic Acid 1 mg/Total Parenteral Nutrition/Amino Acids/Dextrose 1,800 ml @ 75 mls/hr TPN CONT IV Last administered on 11/23/20at 21:54; Start 11/23/20 at 22:00; Stop 11/24/20 at 18:59; Status DC Amlodipine Besylate (Norvasc) 10 mg DAILY PO Last administered on 11/25/20at 09:46; Start 11/24/20 at 09:00 Amlodipine Besylate (Norvasc) 10 mg 1X ONCE PO Last administered on 11/23/20at 10:03; Start 11/23/20 at 10:00; Stop 11/23/20 at 10:01; Status DC Labetalol HCl (Normodyne Iv Push) 20 mg PRN Q4HRS PRN IVP HYPERTENSION Last administered on 11/24/20at 09:24; Start 11/24/20 at 09:30; Stop 11/24/20 at 10:40; Status DC Enalaprilat (Vasotec Inj) 2.5 mg PRN Q6HRS PRN IVP HYPERTENSION-2ND CHOICE Last administered on 11/24/20at 10:16; Start 11/24/20 at 10:15 Labetalol HCl (Normodyne Iv Push) 20 mg PRN Q2HR PRN IVP HYPERTENSION Last administered on 11/25/20at 07:46; Start 11/24/20 at 10:45 Magnesium Sulfate 50 ml @ 25 mls/hr 1X ONCE IV Last administered on 11/24/20at 11:03; Start 11/24/20 at 12:00; Stop 11/24/20 at 13:59; Status DC Potassium Acetate 50 meq/Potassium Phosphate 21 mmol/ Magnesium Sulfate 10 meq/Calcium Gluconate 10 meq/ Multivitamins 5 ml/Zinc/Copper/ Manganese/ Selenium 1 ml/ Thiamine HCl 100 mg/Folic Acid 1 mg/Total Parenteral Nutrition/Amino Acids/Dextrose 1,800 ml @ 75 mls/hr TPN CONT IV ; Start 11/24/20 at 22:00; Stop 11/24/20 at 18:59; Status DC Insulin Human Lispro (HumaLOG) 0-5 UNITS TIDWMEALS SQ ; Start 11/24/20 at 17:00; Stop 11/24/20 at 12:43; Status DC Dextrose (Dextrose 50%-Water Syringe) 12.5 gm PRN Q15MIN PRN IV SEE COMMENTS; Start 11/24/20 at 12:45; Status Cancel Nicardipine HCl 50 mg/Sodium Chloride 250 ml @ 25 mls/hr CONT PRN IV SEE I/O RECORD Last administered on 11/24/20at 22:35; Start 11/24/20 at 12:45 Insulin Human Lispro (HumaLOG) 0-7 UNITS TIDWMEALS SQ ; Start 11/24/20 at 17:00; Stop 11/24/20 at 18:58; Status DC Dextrose (Dextrose 50%-Water Syringe) 12.5 gm PRN Q15MIN PRN IV SEE COMMENTS; Start 11/24/20 at 12:45 Insulin Human Lispro (HumaLOG) 0-7 UNITS Q6HRS SQ ; Start 11/25/20 at 00:00 Ibuprofen (Motrin) 600 mg PRN Q6HRS PRN PO INFLAMMATION; Start 11/25/20 at 11:15 Magnesium Sulfate 50 ml @ 25 mls/hr 1X ONCE IV ; Start 11/25/20 at 12:00; Stop 11/25/20 at 13:59 Vitals/I & O Vital Sign - Last 24 Hours 11/24/20 11/24/20 11/24/20 11/24/20 13:00 14:03 14:35 15:00 Pulse 90 98 96 Resp 39 39 38 B/P (MAP) 164/95 (118) 139/66 (90) 117/62 (80) Pulse Ox 96 92 91 92 O2 Delivery Nasal Cannula Nasal Cannula Nasal Cannula Simple Mask O2 Flow Rate 4.0 4.0 4.0 5.0 11/24/20 11/24/20 11/24/20 11/24/20 16:00 16:00 17:00 18:00 Temp 99.3 99.3 Pulse 96 97 99 Resp 36 35 35 B/P (MAP) 140/69 (92) 133/71 (91) 121/69 (86) Pulse Ox 98 98 99 O2 Delivery Simple Mask Mask Simple Mask Simple Mask O2 Flow Rate 5.0 5.0 5.0 5.0 11/24/20 11/24/20 11/24/20 11/24/20 19:00 20:00 20:00 21:00 Temp 99.2 99.2 Pulse 96 107 118 Resp 28 32 34 B/P (MAP) 138/66 (90) 145/78 (100) 146/84 (104) Pulse Ox 100 98 100 O2 Delivery Simple Mask Simple Mask Mask Simple Mask O2 Flow Rate 5.0 5.0 5.0 5.0 11/24/20 11/24/20 11/25/20 11/25/20 22:00 23:00 00:00 00:00 Temp 99.7 99.7 Pulse 114 106 119 Resp 30 32 36 B/P (MAP) 132/71 (91) 133/65 (87) 126/69 (88) Pulse Ox 100 100 100 O2 Delivery Simple Mask Simple Mask Mask Simple Mask O2 Flow Rate 5.0 5.0 5.0 5.0 11/25/20 11/25/20 11/25/20 11/25/20 01:00 02:00 03:00 04:00 Pulse 110 130 125 112 Resp 30 32 32 34 B/P (MAP) 135/68 (90) 166/78 (107) 159/74 (102) 156/72 (100) Pulse Ox 100 100 100 99 O2 Delivery Simple Mask Simple Mask Simple Mask Simple Mask O2 Flow Rate 5.0 5.0 5.0 5.0 11/25/20 11/25/20 11/25/20 11/25/20 04:00 05:00 06:00 07:00 Temp 99.0 99.0 Pulse 117 112 118 Resp 28 32 34 B/P (MAP) 165/67 (99) 162/77 (105) 153/71 (98) Pulse Ox 100 100 100 O2 Delivery Mask Simple Mask Simple Mask Simple Mask O2 Flow Rate 5.0 4.0 4.0 4.0 11/25/20 11/25/20 11/25/20 11/25/20 07:46 08:00 08:00 09:00 Temp 100.2 100.2 Pulse 111 86 96 Resp 32 36 B/P (MAP) 162/77 117/58 (77) 141/76 (97) Pulse Ox 100 98 O2 Delivery Nasal Cannula Nasal Cannula Nasal Cannula O2 Flow Rate 4.0 4.0 4.0 11/25/20 11/25/20 11/25/20 09:46 10:00 11:00 Pulse 102 102 103 Resp 36 38 B/P (MAP) 141/76 165/83 (110) 155/83 (107) Pulse Ox 100 99 O2 Delivery Nasal Cannula Nasal Cannula O2 Flow Rate 4.0 4.0 Intake and Output 11/24/20 11/24/20 11/25/20 15:00 23:00 07:00 Intake Total 250 ml 637 ml 1214.7 ml Output Total 575 ml 1025 ml 2150 ml Balance -325 ml -388 ml -935.3 ml Justicifation of Admission Dx: Justifications for Admission: Justification of Admission Dx: Yes Sepsis: Altered Mental Status Altered Mental Status: Altered Mental Status MADDISON COLE MD Nov 25, 2020 12:48
[2020-11-25] MEDS: DAPTOmycin (GENERIC) IVPB 470 MG in IV NORMAL SALINE 50ML 50 ML IV SCH (13:18)
[2020-11-26] VITALS (24 sets, daily range): BP systolic 128–197; BP diastolic 67–108
[2020-11-26] MEDS: PIPERACILLIN/TAZOBACTAM 3.375 GM in IV NORMAL SALINE 50ML 50 ML IV SCH ×3 (00:09→12:07)
[2020-11-26 05:39] LABS: BASO # 0.1 x10^3/uL (0.0-0.2); BASO % 0 % (0-3); EOS # 0.3 x10^3/uL (0.0-0.7); EOS % 2 % (0-3); HEMATOCRIT 24.8 % (36.0-47.0); HEMOGLOBIN 7.7 g/dL (12.0-15.5); LYMPH # 1.9 x10^3/uL (1.0-4.8); LYMPH % 15 % (24-48); MEAN CORPUSCULAR HEMOGLOBIN 30 pg (25-35); MEAN CORPUSCULAR HGB CONC 31 g/dL (31-37); MEAN CORPUSCULAR VOLUME 97 fL (79-100); MONO # 1.4 x10^3/uL (0.0-1.1); MONO % 11 % (0-9); NEUT # 9.6 x10^3/uL (1.8-7.7); NEUT % 72 % (31-73); PLATELET COUNT 136 x10^3/uL (140-400); RED BLOOD COUNT 2.56 x10^6/uL (3.50-5.40); WHITE BLOOD COUNT 13.3 x10^3/uL (4.0-11.0)
[2020-11-26] MEDS: INSULIN LISPRO 300 UNITS/3 ML VIAL. SQ SCH ×4 (05:45→17:50)
[2020-11-26 05:51] LABS: MAGNESIUM 1.6 mg/dL (1.8-2.4); PHOSPHORUS 2.7 mg/dL (2.6-4.7)
[2020-11-26 05:52] LABS: ALBUMIN 2.6 g/dL (3.4-5.0); ALBUMIN/GLOBULIN RATIO 0.8 (1.0-1.7); CALCIUM 8.6 mg/dL (8.5-10.1); CREATININE 0.6 mg/dL (0.6-1.0); GFR 110.2; POTASSIUM 3.5 mmol/L (3.5-5.1); TOTAL BILIRUBIN 6.3 mg/dL (0.2-1.0); TOTAL PROTEIN 5.9 g/dL (6.4-8.2)
[2020-11-26] MEDS: MAGNESIUM SULFATE 2GM 50 ML IV PRN (07:35)
--- NOTE | 2020-11-26 08:39 | PDOC ---
Infectious Disease Note Subjective Subjective s/p Ativan Lethargic Fever 100.4 O2 down to 4L Diarrhea Tube feedings ROS ROS Unobtainable due to patient's condition Vital Sign Vital Signs Vital Signs Date Time Temp Pulse Resp B/P (MAP) Pulse Ox O2 Delivery O2 Flow Rate FiO2 11/26/20 07:45 Nasal Cannula 4.0 11/26/20 06:00 110 34 177/87 (117) 97 11/26/20 04:00 100.4 100.4 Physical Exam PHYSICAL EXAM GENERAL: Awake, lethargic HEENT: Sclerae icteric. NG tube in place. Oral cavity is dry. NECK: Supple. LUNGS: Clear bilaterally. labored. HEART: S1, S2. No murmurs. Regular. ABDOMEN: Obese, soft, Bowel sounds present, does not grimace on deep palpation. + rectal tube : Wood (chg 11/25) EXTREMITIES: Edema present no cyanosis. DERMATOLOGIC: No generalized rash. Multiple tattoos. CENTRAL NERVOUS SYSTEM: Lethargic, muffled speech RUE PICC line (11/20), some bruising present. Labs Lab Laboratory Tests Test 11/25/20 13:03 11/25/20 13:13 11/25/20 18:01 11/26/20 00:08 Glucose (Fingerstick) 133 mg/dL (70-99) 142 mg/dL (70-99) 145 mg/dL (70-99) Prothrombin Time 20.0 SEC (11.7-14.0) Prothromb Time International Ratio 1.7 (0.8-1.1) Test 11/26/20 05:15 11/26/20 05:42 White Blood Count 13.3 x10^3/uL (4.0-11.0) Red Blood Count 2.56 x10^6/uL (3.50-5.40) Hemoglobin 7.7 g/dL (12.0-15.5) Hematocrit 24.8 % (36.0-47.0) Mean Corpuscular Volume 97 fL (79-100) Mean Corpuscular Hemoglobin 30 pg (25-35) Mean Corpuscular Hemoglobin Concent 31 g/dL (31-37) Red Cell Distribution Width 22.0 % (11.5-14.5) Platelet Count 136 x10^3/uL (140-400) Neutrophils (%) (Auto) 72 % (31-73) Lymphocytes (%) (Auto) 15 % (24-48) Monocytes (%) (Auto) 11 % (0-9) Eosinophils (%) (Auto) 2 % (0-3) Basophils (%) (Auto) 0 % (0-3) Neutrophils # (Auto) 9.6 x10^3/uL (1.8-7.7) Lymphocytes # (Auto) 1.9 x10^3/uL (1.0-4.8) Monocytes # (Auto) 1.4 x10^3/uL (0.0-1.1) Eosinophils # (Auto) 0.3 x10^3/uL (0.0-0.7) Basophils # (Auto) 0.1 x10^3/uL (0.0-0.2) Sodium Level 147 mmol/L (136-145) Potassium Level 3.5 mmol/L (3.5-5.1) Chloride Level 114 mmol/L (98-107) Carbon Dioxide Level 21 mmol/L (21-32) Anion Gap 12 (6-14) Blood Urea Nitrogen 11 mg/dL (7-20) Creatinine 0.6 mg/dL (0.6-1.0) Estimated GFR (Cockcroft-Gault) 110.2 BUN/Creatinine Ratio 18 (6-20) Glucose Level 135 mg/dL (70-99) Calcium Level 8.6 mg/dL (8.5-10.1) Phosphorus Level 2.7 mg/dL (2.6-4.7) Magnesium Level 1.6 mg/dL (1.8-2.4) Total Bilirubin 6.3 mg/dL (0.2-1.0) Aspartate Amino Transf (AST/SGOT) 114 U/L (15-37) Alanine Aminotransferase (ALT/SGPT) 48 U/L (14-59) Alkaline Phosphatase 103 U/L (46-116) Total Protein 5.9 g/dL (6.4-8.2) Albumin 2.6 g/dL (3.4-5.0) Albumin/Globulin Ratio 0.8 (1.0-1.7) Glucose (Fingerstick) 125 mg/dL (70-99) Micro Microbiology 11/22/20 URINE CULTURE Final 80,000 CFU/ML YEAST on 11/24/20 at 1318 FINAL ID= [[email or web address] [email or web address]] Testing Performed by: 11/22/20 Blood Culture - Preliminary, Resulted NO GROWTH AFTER 3 DAYS Objective Assessment Sepsis Fever Leukocytosis Portosystemic encephalopathy Acute liver failure, likely from alcoholism with hyperbilirubinemia. Acute renal failure. Anemia. Status post PRBC Coagulopathy. Protein-calorie malnutrition. History of gastroesophageal reflux disease, GI bleed, gastritis, pancreatitis, peptic ulcer disease. History of anxiety and depression. Hydropic gallbladder with hepatic steatosis. Femoral line removed Diarrhea on lactulose. C. diff neg, 11/22. Yeast in urine, 11/22. Wood chg 11/25 Plan Plan of Care Add CPK level and chest x-ray Continue Zosyn, daptomycin Monitor WBC trend and temp BC neg to date Maintain aspiration precaution. Discussed with nursing Critically ill Fever and Leukocytosis D/c Zosyn/Dapto and begin Cefepime/Flagyl/Zyvox/Cristin Repeat cults D/w nursing Attending Co-Sign Attending Co-Sign The patient was seen and interviewed as well as examined at the bedside. The chart was reviewed. The case was discussed. Agree with the plan of care. RYAN GARIBAY APRN Nov 26, 2020 08:39 WHITNEY HARRIS MD Nov 26, 2020 13:17
[2020-11-26] MEDS: ELECTROLYTE (ICU) PROTOCOL. MC SCH (09:00)
[2020-11-26 09:32] LABS: ANISOCYTOSIS MOD; PLT ESTIMATE DECREASED (ADEQUATE)
[2020-11-26] MEDS: ENALAPRILAT 2.5 MG/2 ML VIAL. IVP PRN (09:40)
[2020-11-26] MEDS: amLODIPine BESYLATE 10 MG TABLET PO SCH (09:40)
[2020-11-26] MEDS: PANTOPRAZOLE IV PUSH 40 MG VIAL. IVP SCH ×2 (09:41→21:39)
[2020-11-26] MEDS: rifAXIMin 550 MG TABLET PO SCH ×2 (09:41→21:39)
[2020-11-26] MEDS: LACTULOSE 20 GM/30 ML SOLUTION. FT SCH ×4 (09:41→21:38)
--- NOTE | 2020-11-26 12:38 | PDOC ---
Renal-Progress Notes Subjective Notes Notes NO NEW COMPLAINTS History of Present Illness Hx of present illness STABLE Vitals Vitals Vital Signs Date Time Temp Pulse Resp B/P (MAP) Pulse Ox O2 Delivery O2 Flow Rate FiO2 11/26/20 11:00 112 38 164/85 (111) 99 Nasal Cannula 2.0 11/26/20 08:00 100.4 100.4 Weight Weight [ ] I.O. Intake and Output Intake and Output 11/26/20 07:00 Intake Total 2355 ml Output Total 3975 ml Balance -1620 ml IV Total 250 ml Tube Feeding 1355 ml Other 750 ml Output Urine Total 3375 ml Stool Total 600 ml Chest Tube Drainage Total 0 ml Labs Labs Laboratory Tests Test 11/25/20 13:03 11/25/20 13:13 11/25/20 18:01 11/26/20 00:08 Glucose (Fingerstick) 133 mg/dL (70-99) 142 mg/dL (70-99) 145 mg/dL (70-99) Prothrombin Time 20.0 SEC (11.7-14.0) Prothromb Time International Ratio 1.7 (0.8-1.1) Test 11/26/20 05:15 11/26/20 05:42 11/26/20 12:09 White Blood Count 13.3 x10^3/uL (4.0-11.0) Red Blood Count 2.56 x10^6/uL (3.50-5.40) Hemoglobin 7.7 g/dL (12.0-15.5) Hematocrit 24.8 % (36.0-47.0) Mean Corpuscular Volume 97 fL (79-100) Mean Corpuscular Hemoglobin 30 pg (25-35) Mean Corpuscular Hemoglobin Concent 31 g/dL (31-37) Red Cell Distribution Width 22.0 % (11.5-14.5) Platelet Count 136 x10^3/uL (140-400) Neutrophils (%) (Auto) 72 % (31-73) Lymphocytes (%) (Auto) 15 % (24-48) Monocytes (%) (Auto) 11 % (0-9) Eosinophils (%) (Auto) 2 % (0-3) Basophils (%) (Auto) 0 % (0-3) Neutrophils # (Auto) 9.6 x10^3/uL (1.8-7.7) Lymphocytes # (Auto) 1.9 x10^3/uL (1.0-4.8) Monocytes # (Auto) 1.4 x10^3/uL (0.0-1.1) Eosinophils # (Auto) 0.3 x10^3/uL (0.0-0.7) Basophils # (Auto) 0.1 x10^3/uL (0.0-0.2) Platelet Estimate Decreased (ADEQUATE) Anisocytosis Mod Macrocytosis Present Sodium Level 147 mmol/L (136-145) Potassium Level 3.5 mmol/L (3.5-5.1) Chloride Level 114 mmol/L (98-107) Carbon Dioxide Level 21 mmol/L (21-32) Anion Gap 12 (6-14) Blood Urea Nitrogen 11 mg/dL (7-20) Creatinine 0.6 mg/dL (0.6-1.0) Estimated GFR (Cockcroft-Gault) 110.2 BUN/Creatinine Ratio 18 (6-20) Glucose Level 135 mg/dL (70-99) Calcium Level 8.6 mg/dL (8.5-10.1) Phosphorus Level 2.7 mg/dL (2.6-4.7) Magnesium Level 1.6 mg/dL (1.8-2.4) Total Bilirubin 6.3 mg/dL (0.2-1.0) Aspartate Amino Transf (AST/SGOT) 114 U/L (15-37) Alanine Aminotransferase (ALT/SGPT) 48 U/L (14-59) Alkaline Phosphatase 103 U/L (46-116) Creatine Kinase 35 U/L (26-192) Total Protein 5.9 g/dL (6.4-8.2) Albumin 2.6 g/dL (3.4-5.0) Albumin/Globulin Ratio 0.8 (1.0-1.7) Glucose (Fingerstick) 125 mg/dL (70-99) 119 mg/dL (70-99) Micro Micro Microbiology 11/22/20 Urine Culture - Final, Complete 11/22/20 Blood Culture - Preliminary, Resulted NO GROWTH AFTER 3 DAYS Review of Systems Constitutional: yes: other (UNABLE TO OBTAIN) Physical Exam General Appearance: no apparent distress Skin: warm Respiratory: decreased breath sounds Heart: S1S2 Abdomen: soft, bowel sounds present Genitourinary: bladder flat Neurology: alert, confused, other Assessment Assessment IMP EARL-RESOLVED HYPOMAGNESEMIA HYPERNATREMIA-IMPROVED LIVER FAILURE ETOH ABUSE ENCEPHALOPATHY SEPSIS PLAN REPLACE MAG ALBUMIN NEEDED ANTIBIOTICS LABS IN AM JOSE ANGEL HA MD Nov 26, 2020 12:38
[2020-11-26 12:40] LABS: U PREG PATIENT NEGATIVE (NEG)
--- NOTE | 2020-11-26 12:54 | PDOC ---
[employer] PROGRESS NOTE Date of Service DOS: DATE: 11/26/20 TIME: 12:40 Chief Complaint Chief Complaint Confusion History of Present Illness History of Present Illness 11/26/2020 Patient seen and examined in ICU. Patient was awake but did not talk. Spoke with Rene, the patient's . She has spoken some words to him. Spoke with RN. NG feeding 40cc/hr. 11/25/2020 Patient seen and examined in ICU Remains extremely encephalopathic Spoke with RN Spoke with patient's on the phone, he is distraught over her condition. Blood pressure still high Fever today of 100.6. 11/24/2020 Patient seen and examined in the ICU She remains extremely encephalopathic Eyes open but does not really make eye contact Discussed with RN Her pressures are running high Have added an IV labetalol and IV Vasotec Prognosis guarded and she is still critically ill 11/23/20 Patient seen and examined in ICU Chart review, discussed with nursing and patient case manager Still visibly jaundiced, tried to speak but unable to form words Lab work improving since beginning lactulose and rifaxamin. Bilirubin down. Patient did have new onset wheezing today and spoke to nursing about starting PRN nebulizers. 11/22/20 Patient seen and examined in the ICU Chart reviewed, discussed with nursing and patient case manager Still visibly jaundiced, encephalopathic, but eyes open. Anemia - 6.8. WBC count up to 81. PEG not tolerated. GI considering TPN Patient started on lactulose + rifaxamin per GI FFP being considered for coagulopathy. 11/21/20 Patient seen and examined in the ICU Chart reviewed Still visibly jaundiced Respiratory rate improved to around 25 today, was around 30-35 yesterday. Anemia improving; at Hgb of 6.6 today. Ordered 1 unit PRBC this morning. Hypothermia resolved; temp today 98.1 WBC count improved to 6. Patient now on PEG tube. Dex for sedation Octreotide drip IV Protonix Continue rectal bag Wood to BSD in place 11/20/20 Patient seen and examined in the ICU Chart reviewed She is visibly jaundiced Very anemic with HBG at 2.44 Hypothermic today with temp of 97.5 F (04:00), up from 94.4 F yesterday (20:00) White blood cells trending downward from normal, today WBC are 3.7 Dex for sedation Octreotide drip in the room IV Protonix going Continue rectal bag Wood to BSD in place 11/19/20 VERY ANEMIC, HYPOTENSIVE 4- MELD score on admit is 40, PROGNOSIS VERY GUARDED ECHO pending, cardiology consulted Stools slightly red per RN NH4 pending IONIZED CA 1.05 VIT D LEVEL pending 11/18/20 VERY ANEMIC, HYPOTENSIVE OVERNIGHT ECHO pending, cardiology consulted NH4 pending ID CONSULT NEUROLOGY CONSULT Gen Surg consult 11/17/20 Ms Phipps is a 40yo F w/ PMHx morbid obesity s/p gastric bypass ini 2008, alcohol use disorder, Anxiety, Depression, Hypertension, IBS, Kidney Stones, Pancreatitis, chronic back pain, and smoker who presented to [facility] ED in [place], [place] via EMS for altered mental status. Her called because patient has been on couch has been increasingly confused over the past 5 days. Per EMS report she had a fall a few days ago when she was intoxicated. EKG appears sinus tachycardia, heart rate [address] elevation or depression, no ectopy. Normal intervals. T waves unremarkable. CT chest abdomen pelvis revealed severe hepatic steatosis and cholelithiasis with hydropic gallbladder and gastric bypass, no other acute findings. CT head with no acute hemorrhage. Labs with WBC 7.5, Hb 6.4, platelets 237, Na 130, K 4.3, BUN 10, Cr 2.3, glucose 72, Trop 0, BNP 939, Albumin 1.8, INR 4.9, ammonia 44, bilirubin 11, AST 2744, ALT 400, Alk phos 172, Lipase 42 Given concern for acute liver failure and acute renal failure patient accepted for transfer to [facility] for specialist consultation. Seen bedside with her , patient following very few commands, otherwise drowsy, not oriented, moaning, not articulating well or making meaningful eye contact. notes that sometimes this might happen for a week at a time at home and frightens their 11 and 17 year old children. He notes "it has been a rough year". [facility] October [facility] ter a DUI and parole violation of intoxication with alcohol that led to her serving 17 [place] [facility] [place] [place]. She has struggled with substance use disorder, specifically alcohol, according to her since her gastric bypass in 2008, has been previously treated for this as well as pancreatitis. Admitted to ICU for further treatment. Due to the inability to maintain a peripheral IV and concern for potential uncontrollable bleeding in the neck a right femoral central venous catheter was placed for medications, blood transfusion and lab draw purposes for frequent lab draws. Vitals/I&O Vitals/I&O: Vital Signs Date Time Temp Pulse Resp B/P (MAP) Pulse Ox O2 Delivery O2 Flow Rate FiO2 11/26/20 11:00 112 38 164/85 (111) 99 Nasal Cannula 2.0 11/26/20 08:00 100.4 100.4 I & O 11/25/20 11/25/20 11/26/20 15:00 23:00 07:00 Intake Total 904 ml 1451 ml Output Total 1300 ml 825 ml 1850 ml Balance -1300 ml 79 ml -399 ml Physical Exam Physical Exam: GENERAL: Awake, lethargic HEENT: Sclerae icteric. NG tube in place. Oral cavity is dry. NECK: Supple. LUNGS: Clear bilaterally. labored. HEART: S1, S2. No murmurs. Regular. ABDOMEN: Obese, soft, Bowel sounds present, does not grimace on deep palpation. + rectal tube : Wood (chg 11/25) EXTREMITIES: Edema present no cyanosis. DERMATOLOGIC: No generalized rash. Multiple tattoos. CENTRAL NERVOUS SYSTEM: Lethargic, muffled speech RUE PICC line (11/20), some bruising present. General: Alert Heart: Regular rate Lungs: Wheezing Abdomen: Soft, Other (obese ) Extremities: No cyanosis Skin: No breakdown, Other (Visibly jaundiced.) Labs Labs: Laboratory Tests Test 11/25/20 13:03 11/25/20 13:13 11/25/20 18:01 11/26/20 00:08 Glucose (Fingerstick) 133 mg/dL (70-99) 142 mg/dL (70-99) 145 mg/dL (70-99) Prothrombin Time 20.0 SEC (11.7-14.0) Prothromb Time International Ratio 1.7 (0.8-1.1) Test 11/26/20 05:15 11/26/20 05:42 11/26/20 11:55 11/26/20 12:09 White Blood Count 13.3 x10^3/uL (4.0-11.0) Red Blood Count 2.56 x10^6/uL (3.50-5.40) Hemoglobin 7.7 g/dL (12.0-15.5) Hematocrit 24.8 % (36.0-47.0) Mean Corpuscular Volume 97 fL (79-100) Mean Corpuscular Hemoglobin 30 pg (25-35) Mean Corpuscular Hemoglobin Concent 31 g/dL (31-37) Red Cell Distribution Width 22.0 % (11.5-14.5) Platelet Count 136 x10^3/uL (140-400) Neutrophils (%) (Auto) 72 % (31-73) Lymphocytes (%) (Auto) 15 % (24-48) Monocytes (%) (Auto) 11 % (0-9) Eosinophils (%) (Auto) 2 % (0-3) Basophils (%) (Auto) 0 % (0-3) Neutrophils # (Auto) 9.6 x10^3/uL (1.8-7.7) Lymphocytes # (Auto) 1.9 x10^3/uL (1.0-4.8) Monocytes # (Auto) 1.4 x10^3/uL (0.0-1.1) Eosinophils # (Auto) 0.3 x10^3/uL (0.0-0.7) Basophils # (Auto) 0.1 x10^3/uL (0.0-0.2) Platelet Estimate Decreased (ADEQUATE) Anisocytosis Mod Macrocytosis Present Sodium Level 147 mmol/L (136-145) Potassium Level 3.5 mmol/L (3.5-5.1) Chloride Level 114 mmol/L (98-107) Carbon Dioxide Level 21 mmol/L (21-32) Anion Gap 12 (6-14) Blood Urea Nitrogen 11 mg/dL (7-20) Creatinine 0.6 mg/dL (0.6-1.0) Estimated GFR (Cockcroft-Gault) 110.2 BUN/Creatinine Ratio 18 (6-20) Glucose Level 135 mg/dL (70-99) Calcium Level 8.6 mg/dL (8.5-10.1) Phosphorus Level 2.7 mg/dL (2.6-4.7) Magnesium Level 1.6 mg/dL (1.8-2.4) Total Bilirubin 6.3 mg/dL (0.2-1.0) Aspartate Amino Transf (AST/SGOT) 114 U/L (15-37) Alanine Aminotransferase (ALT/SGPT) 48 U/L (14-59) Alkaline Phosphatase 103 U/L (46-116) Creatine Kinase 35 U/L (26-192) Total Protein 5.9 g/dL (6.4-8.2) Albumin 2.6 g/dL (3.4-5.0) Albumin/Globulin Ratio 0.8 (1.0-1.7) Glucose (Fingerstick) 125 mg/dL (70-99) 119 mg/dL (70-99) Urine Test Negative (NEG) Assessment and Plan Assessmemt and Plan Assessment Leukocytosis Thrombocytopenia Hypomagnesemia Hypertension Fever 100.4 Pulmonary effusion Acute metabolic encephalopathy - seems likely hepatic in origin due fatty liver and alcoholic liver disease Coagulopathy Acute anemia Acute renal failure Acute liver failure - MELD score on admit is 40 Acute hepatitis - possibly alcoholic etiology Hydropic gallbladder with gallbladder sludge per [place] Alcohol use disorder Plan Continue monitoring WBC and platelet counts. Magnesium replacement today. Continue treating fever with ibuprofen 600mg q6 hours prn Continue IV Vasotec and IV labetalol prn, added Nicardipine prn Nebulizers. INR improved to 1.7. Continue monitoring for improvement ICU monitoring [facility] protocol Trend labs DVT Prophylaxis Continue home medication Full code Prognosis guarded Appreciate subspecialist input Comment Review of Relevant I have reviewed the following items josue (where applicable) has been applied. Justifications for Admission General Conditions Poss tachycardia?: Yes Justification for admission: Patient has tachycardia (> 100 beats per minute) which is not readily corrected by appropriate treatment within 12 to 24 hours. Poss Metaboilic Acidosis?: Yes Justification for admission: Patient has tachycardia (> 100 beats per minute) or hypotension (SBP < 90 mm Hg) leading to inadequate systemic perfusion as indicated by metabolic acidosis with arterial pH of less than 7.35. Altered mental status?: Yes Justification of admission: Patient has tachycardia (> 100 beats per minute) or hypotension (SBP < 90 mm Hg) leading to inadequate systemic perfusion as indicated by severe/persistent altered mental status. Other Justification MOOK CHRISTOPHER III DO Nov 26, 2020 12:54
[2020-11-26] MEDS: LABETALOL 20 MG/4 ML DISP.SYRIN. IVP PRN ×2 (13:19→16:27)
--- NOTE | 2020-11-26 13:19 | RAD ---
EXAM: Chest, single view. HISTORY: Shortness of air. COMPARISON: 11/24/2020. FINDINGS: A frontal view of the chest is obtained. There is stable diffuse mixed interstitial and david eolar infiltrate. No pleural effusion or pneumothorax is seen. There is a stable enlarged cardiac manan houette. There is an endotracheal tube within the distal trachea. The support lines and tubes are unc hanged. IMPRESSION: Stable diffuse mixed interstitial and alveolar infiltrate and enlarged cardiac silhouette . Electronically signed by: Celia Mckeon MD (11/26/2020 1:16 PM) [id number]
[2020-11-26] MEDS: CEFEPIME HCL IV Push 1 GM VIAL. IVP SCH ×2 (13:27→21:39)
[2020-11-26] MEDS ORDERED: MAGNESIUM SULFATE 2GM 50 ML IV ONE (13:45)
[2020-11-26] MEDS: MICAFUNGIN 100 MG in IV DEXTROSE 5% 100ML 100 ML IV SCH (14:28)
[2020-11-26] MEDS: IBUPROFEN 200 MG TABLET. PO PRN (21:39)
[2020-11-27] VITALS (21 sets, daily range): BP systolic 141–180; BP diastolic 66–119
[2020-11-27] MEDS: LABETALOL 20 MG/4 ML DISP.SYRIN. IVP PRN ×2 (00:14→21:42)
[2020-11-27] MEDS: INSULIN LISPRO 300 UNITS/3 ML VIAL. SQ SCH ×5 (00:15→23:44)
[2020-11-27] MEDS: IBUPROFEN 200 MG TABLET. PO PRN (04:19)
[2020-11-27 05:01] LABS: BASO # 0.1 x10^3/uL (0.0-0.2); BASO % 1 % (0-3); EOS # 0.3 x10^3/uL (0.0-0.7); EOS % 3 % (0-3); HEMOGLOBIN 7.4 g/dL (12.0-15.5); LYMPH # 1.6 x10^3/uL (1.0-4.8); LYMPH % 14 % (24-48); MEAN CORPUSCULAR HEMOGLOBIN 30 pg (25-35); MEAN CORPUSCULAR HGB CONC 31 g/dL (31-37); MEAN CORPUSCULAR VOLUME 98 fL (79-100); MONO # 1.1 x10^3/uL (0.0-1.1); MONO % 10 % (0-9); NEUT # 8.5 x10^3/uL (1.8-7.7); NEUT % 73 % (31-73); PLATELET COUNT 109 x10^3/uL (140-400); RED BLOOD COUNT 2.45 x10^6/uL (3.50-5.40); RED CELL DISTRIBUTION WIDTH 22.4 % (11.5-14.5); WHITE BLOOD COUNT 11.6 x10^3/uL (4.0-11.0)
[2020-11-27 05:14] LABS: MAGNESIUM 1.7 mg/dL (1.8-2.4); PHOSPHORUS 2.6 mg/dL (2.6-4.7)
[2020-11-27 05:36] LABS: ALBUMIN 2.4 g/dL (3.4-5.0); ALBUMIN/GLOBULIN RATIO 0.7 (1.0-1.7); CALCIUM 8.5 mg/dL (8.5-10.1); CREATININE 0.5 mg/dL (0.6-1.0); TOTAL BILIRUBIN 5.6 mg/dL (0.2-1.0); TOTAL PROTEIN 5.9 g/dL (6.4-8.2)
[2020-11-27 05:55] LABS: POTASSIUM 3.2 mmol/L (3.5-5.1)
[2020-11-27] MEDS: CEFEPIME HCL IV Push 1 GM VIAL. IVP SCH ×3 (06:00→23:43)
[2020-11-27] MEDS: ELECTROLYTE (ICU) PROTOCOL. MC SCH (06:29)
[2020-11-27] MEDS ORDERED: POTASSIUM CHLORIDE 20 MEQ TABLET.ER. PO ONE (07:00)
[2020-11-27] MEDS ORDERED: MAGNESIUM SULFATE 4GM 100 ML IV ONE (07:00)
--- NOTE | 2020-11-27 07:38 | PDOC ---
Infectious Disease Note Subjective: Subjective Patient remains lethargic T-max 100.3 O2 down to 3L Tube feedings Vital Signs: Vital Signs Vital Signs Date Time Temp Pulse Resp B/P (MAP) Pulse Ox O2 Delivery O2 Flow Rate FiO2 11/27/20 06:00 104 27 166/86 (112) 99 Nasal Cannula 2.0 11/27/20 05:00 99.3 99.3 Physical Exam: PHYSICAL EXAM GENERAL: Awake, lethargic HEENT: Sclerae icteric. NG tube in place. Oral cavity is dry. NECK: Supple. LUNGS: Clear bilaterally. labored. HEART: S1, S2. No murmurs. Regular. ABDOMEN: Obese, soft, Bowel sounds present, does not grimace on deep palpation. + rectal tube : Wood (chg 11/25) EXTREMITIES: Edema present no cyanosis. DERMATOLOGIC: No generalized rash. Multiple tattoos. CENTRAL NERVOUS SYSTEM: Lethargic, muffled speech RUE PICC line (11/20), some bruising present. Medications: Inpatient Meds: Medications reviewed. Labs: Lab Laboratory Tests Test 11/26/20 11:55 11/26/20 12:09 11/26/20 17:48 11/27/20 00:10 Urine Test Negative (NEG) Glucose (Fingerstick) 119 mg/dL (70-99) 154 mg/dL (70-99) 165 mg/dL (70-99) Test 11/27/20 04:10 White Blood Count 11.6 x10^3/uL (4.0-11.0) Red Blood Count 2.45 x10^6/uL (3.50-5.40) Hemoglobin 7.4 g/dL (12.0-15.5) Hematocrit 24.0 % (36.0-47.0) Mean Corpuscular Volume 98 fL (79-100) Mean Corpuscular Hemoglobin 30 pg (25-35) Mean Corpuscular Hemoglobin Concent 31 g/dL (31-37) Red Cell Distribution Width 22.4 % (11.5-14.5) Platelet Count 109 x10^3/uL (140-400) Neutrophils (%) (Auto) 73 % (31-73) Lymphocytes (%) (Auto) 14 % (24-48) Monocytes (%) (Auto) 10 % (0-9) Eosinophils (%) (Auto) 3 % (0-3) Basophils (%) (Auto) 1 % (0-3) Neutrophils # (Auto) 8.5 x10^3/uL (1.8-7.7) Lymphocytes # (Auto) 1.6 x10^3/uL (1.0-4.8) Monocytes # (Auto) 1.1 x10^3/uL (0.0-1.1) Eosinophils # (Auto) 0.3 x10^3/uL (0.0-0.7) Basophils # (Auto) 0.1 x10^3/uL (0.0-0.2) Sodium Level 145 mmol/L (136-145) Potassium Level 3.2 mmol/L (3.5-5.1) Chloride Level 114 mmol/L (98-107) Carbon Dioxide Level 21 mmol/L (21-32) Anion Gap 10 (6-14) Blood Urea Nitrogen 11 mg/dL (7-20) Creatinine 0.5 mg/dL (0.6-1.0) Estimated GFR (Cockcroft-Gault) 136.0 BUN/Creatinine Ratio 22 (6-20) Glucose Level 119 mg/dL (70-99) Calcium Level 8.5 mg/dL (8.5-10.1) Phosphorus Level 2.6 mg/dL (2.6-4.7) Magnesium Level 1.7 mg/dL (1.8-2.4) Total Bilirubin 5.6 mg/dL (0.2-1.0) Aspartate Amino Transf (AST/SGOT) 124 U/L (15-37) Alanine Aminotransferase (ALT/SGPT) 41 U/L (14-59) Alkaline Phosphatase 103 U/L (46-116) Total Protein 5.9 g/dL (6.4-8.2) Albumin 2.4 g/dL (3.4-5.0) Albumin/Globulin Ratio 0.7 (1.0-1.7) Objective: Assessment: Sepsis Fever Portosystemic encephalopathy Acute liver failure, likely from alcoholism with hyperbilirubinemia. Improving slowly Acute renal failure. Anemia. Status post PRBC Coagulopathy. Protein-calorie malnutrition. History of gastroesophageal reflux disease, GI bleed, gastritis, pancreatitis, peptic ulcer disease. History of anxiety and depression. Hydropic gallbladder with hepatic steatosis. Femoral line removed Diarrhea on lactulose UC Taina albicans Pulm infiltrates Plan: Plan of Care Cefepime/Flagyl/Zyvox/Cristin currently due to fever on 11/26 was on Zosyn, daptomycin Monitor WBC trend and temp BC neg to date Maintain aspiration precaution. Discussed with nursing Change hever if not done already Critically ill D/w nursing DAGMAR MALCOLM MD Nov 27, 2020 07:38
--- NOTE | 2020-11-27 10:32 | PDOC ---
PROGRESS NOTES Date of Service DATE: 11/27/20 TIME: 10:29 Assessment Metabolic encephalopathy Pancreatitis, liver failure (INR 1.7 on 11/25), renal failure, pancreatitis, history of gastric bypass for obesity, sepsis, hypothermia, anemia, coagulopathy, GERD, history of GI bleed and gastritis, history of anxiety and depression, hydropic gallbladder, hepatic steatosis, diarrhea on lactulose, protein-calorie malnutrition. Plan No additional neurological studies planned Treat medical diseases On thiamine, rifaximin, and lactulose; off dexmedetomidine Subjective None Objective Vital Signs Date Time Temp Pulse Resp B/P (MAP) Pulse Ox O2 Delivery O2 Flow Rate FiO2 11/27/20 06:00 104 27 166/86 (112) 99 Nasal Cannula 2.0 11/27/20 05:00 99.3 99.3 Intake and Output 11/27/20 07:00 Intake Total 3358 ml Output Total 4000 ml Balance -642 ml IV Total 880 ml Tube Feeding 1878 ml Other 600 ml Output Urine Total 3000 ml Stool Total 1000 ml PHYSICAL EXAM Jaundiced Eyes open, mumbles replies, follows a few commands PERRL. EOMI. CN: no focal findings. Muscle tone: normal. Muscle strength: Moves all 4 extremities to command DTR: 1+ Plantar reflex: Flexor Gait: not examined in bed. Sensory exam: Not cooperative. Cerebellar: Not cooperative Review of Relevant I have reviewed the following items josue (where applicable) has been applied. Labs Laboratory Tests Test 11/25/20 13:03 11/25/20 13:13 11/25/20 18:01 11/26/20 00:08 Glucose (Fingerstick) 133 mg/dL (70-99) 142 mg/dL (70-99) 145 mg/dL (70-99) Prothrombin Time 20.0 SEC (11.7-14.0) Prothromb Time International Ratio 1.7 (0.8-1.1) Test 11/26/20 05:15 11/26/20 05:42 11/26/20 11:55 11/26/20 12:09 White Blood Count 13.3 x10^3/uL (4.0-11.0) Red Blood Count 2.56 x10^6/uL (3.50-5.40) Hemoglobin 7.7 g/dL (12.0-15.5) Hematocrit 24.8 % (36.0-47.0) Mean Corpuscular Volume 97 fL (79-100) Mean Corpuscular Hemoglobin 30 pg (25-35) Mean Corpuscular Hemoglobin Concent 31 g/dL (31-37) Red Cell Distribution Width 22.0 % (11.5-14.5) Platelet Count 136 x10^3/uL (140-400) Neutrophils (%) (Auto) 72 % (31-73) Lymphocytes (%) (Auto) 15 % (24-48) Monocytes (%) (Auto) 11 % (0-9) Eosinophils (%) (Auto) 2 % (0-3) Basophils (%) (Auto) 0 % (0-3) Neutrophils # (Auto) 9.6 x10^3/uL (1.8-7.7) Lymphocytes # (Auto) 1.9 x10^3/uL (1.0-4.8) Monocytes # (Auto) 1.4 x10^3/uL (0.0-1.1) Eosinophils # (Auto) 0.3 x10^3/uL (0.0-0.7) Basophils # (Auto) 0.1 x10^3/uL (0.0-0.2) Platelet Estimate Decreased (ADEQUATE) Anisocytosis Mod Macrocytosis Present Sodium Level 147 mmol/L (136-145) Potassium Level 3.5 mmol/L (3.5-5.1) Chloride Level 114 mmol/L (98-107) Carbon Dioxide Level 21 mmol/L (21-32) Anion Gap 12 (6-14) Blood Urea Nitrogen 11 mg/dL (7-20) Creatinine 0.6 mg/dL (0.6-1.0) Estimated GFR (Cockcroft-Gault) 110.2 BUN/Creatinine Ratio 18 (6-20) Glucose Level 135 mg/dL (70-99) Calcium Level 8.6 mg/dL (8.5-10.1) Phosphorus Level 2.7 mg/dL (2.6-4.7) Magnesium Level 1.6 mg/dL (1.8-2.4) Total Bilirubin 6.3 mg/dL (0.2-1.0) Aspartate Amino Transf (AST/SGOT) 114 U/L (15-37) Alanine Aminotransferase (ALT/SGPT) 48 U/L (14-59) Alkaline Phosphatase 103 U/L (46-116) Creatine Kinase 35 U/L (26-192) Total Protein 5.9 g/dL (6.4-8.2) Albumin 2.6 g/dL (3.4-5.0) Albumin/Globulin Ratio 0.8 (1.0-1.7) Glucose (Fingerstick) 125 mg/dL (70-99) 119 mg/dL (70-99) Urine Test Negative (NEG) Test 11/26/20 17:48 11/27/20 00:10 11/27/20 04:10 Glucose (Fingerstick) 154 mg/dL (70-99) 165 mg/dL (70-99) White Blood Count 11.6 x10^3/uL (4.0-11.0) Red Blood Count 2.45 x10^6/uL (3.50-5.40) Hemoglobin 7.4 g/dL (12.0-15.5) Hematocrit 24.0 % (36.0-47.0) Mean Corpuscular Volume 98 fL (79-100) Mean Corpuscular Hemoglobin 30 pg (25-35) Mean Corpuscular Hemoglobin Concent 31 g/dL (31-37) Red Cell Distribution Width 22.4 % (11.5-14.5) Platelet Count 109 x10^3/uL (140-400) Neutrophils (%) (Auto) 73 % (31-73) Lymphocytes (%) (Auto) 14 % (24-48) Monocytes (%) (Auto) 10 % (0-9) Eosinophils (%) (Auto) 3 % (0-3) Basophils (%) (Auto) 1 % (0-3) Neutrophils # (Auto) 8.5 x10^3/uL (1.8-7.7) Lymphocytes # (Auto) 1.6 x10^3/uL (1.0-4.8) Monocytes # (Auto) 1.1 x10^3/uL (0.0-1.1) Eosinophils # (Auto) 0.3 x10^3/uL (0.0-0.7) Basophils # (Auto) 0.1 x10^3/uL (0.0-0.2) Sodium Level 145 mmol/L (136-145) Potassium Level 3.2 mmol/L (3.5-5.1) Chloride Level 114 mmol/L (98-107) Carbon Dioxide Level 21 mmol/L (21-32) Anion Gap 10 (6-14) Blood Urea Nitrogen 11 mg/dL (7-20) Creatinine 0.5 mg/dL (0.6-1.0) Estimated GFR (Cockcroft-Gault) 136.0 BUN/Creatinine Ratio 22 (6-20) Glucose Level 119 mg/dL (70-99) Calcium Level 8.5 mg/dL (8.5-10.1) Phosphorus Level 2.6 mg/dL (2.6-4.7) Magnesium Level 1.7 mg/dL (1.8-2.4) Total Bilirubin 5.6 mg/dL (0.2-1.0) Aspartate Amino Transf (AST/SGOT) 124 U/L (15-37) Alanine Aminotransferase (ALT/SGPT) 41 U/L (14-59) Alkaline Phosphatase 103 U/L (46-116) Total Protein 5.9 g/dL (6.4-8.2) Albumin 2.4 g/dL (3.4-5.0) Albumin/Globulin Ratio 0.7 (1.0-1.7) Laboratory Tests Test 11/26/20 11:55 11/26/20 12:09 11/26/20 17:48 11/27/20 00:10 Urine Test Negative (NEG) Glucose (Fingerstick) 119 mg/dL (70-99) 154 mg/dL (70-99) 165 mg/dL (70-99) Test 11/27/20 04:10 White Blood Count 11.6 x10^3/uL (4.0-11.0) Red Blood Count 2.45 x10^6/uL (3.50-5.40) Hemoglobin 7.4 g/dL (12.0-15.5) Hematocrit 24.0 % (36.0-47.0) Mean Corpuscular Volume 98 fL (79-100) Mean Corpuscular Hemoglobin 30 pg (25-35) Mean Corpuscular Hemoglobin Concent 31 g/dL (31-37) Red Cell Distribution Width 22.4 % (11.5-14.5) Platelet Count 109 x10^3/uL (140-400) Neutrophils (%) (Auto) 73 % (31-73) Lymphocytes (%) (Auto) 14 % (24-48) Monocytes (%) (Auto) 10 % (0-9) Eosinophils (%) (Auto) 3 % (0-3) Basophils (%) (Auto) 1 % (0-3) Neutrophils # (Auto) 8.5 x10^3/uL (1.8-7.7) Lymphocytes # (Auto) 1.6 x10^3/uL (1.0-4.8) Monocytes # (Auto) 1.1 x10^3/uL (0.0-1.1) Eosinophils # (Auto) 0.3 x10^3/uL (0.0-0.7) Basophils # (Auto) 0.1 x10^3/uL (0.0-0.2) Sodium Level 145 mmol/L (136-145) Potassium Level 3.2 mmol/L (3.5-5.1) Chloride Level 114 mmol/L (98-107) Carbon Dioxide Level 21 mmol/L (21-32) Anion Gap 10 (6-14) Blood Urea Nitrogen 11 mg/dL (7-20) Creatinine 0.5 mg/dL (0.6-1.0) Estimated GFR (Cockcroft-Gault) 136.0 BUN/Creatinine Ratio 22 (6-20) Glucose Level 119 mg/dL (70-99) Calcium Level 8.5 mg/dL (8.5-10.1) Phosphorus Level 2.6 mg/dL (2.6-4.7) Magnesium Level 1.7 mg/dL (1.8-2.4) Total Bilirubin 5.6 mg/dL (0.2-1.0) Aspartate Amino Transf (AST/SGOT) 124 U/L (15-37) Alanine Aminotransferase (ALT/SGPT) 41 U/L (14-59) Alkaline Phosphatase 103 U/L (46-116) Total Protein 5.9 g/dL (6.4-8.2) Albumin 2.4 g/dL (3.4-5.0) Albumin/Globulin Ratio 0.7 (1.0-1.7) Microbiology 11/22/20 Urine Culture - Final, Complete 11/22/20 Blood Culture - Preliminary, Resulted NO GROWTH AFTER 4 DAYS Medications Current Medications Lorazepam (Ativan Inj) 0.5 mg PRN Q6HRS PRN IVP ANXIETY / AGITATION Last administered on 11/18/20at 18:10; Start 11/17/20 at 16:15; Stop 11/19/20 at 01:14; Status DC Ondansetron HCl (Zofran) 4 mg PRN Q6HRS PRN IVP NAUSEA/VOMITING, 1ST CHOICE; Start 11/17/20 at 16:15 Prochlorperazine Edisylate (Compazine) 5 mg PRN Q6HRS PRN IVP NAUSEA/VOMITING, 2ND CHOICE; Start 11/17/20 at 16:15 Info (Icu Electrolyte Protocol) 1 ea DAILY MC Last administered on 11/27/20at 06:29; Start 11/18/20 at 09:00 Sodium Chloride (Normal Saline Flush) 3 ml QSHIFT PRN IV AFTER MEDS AND BLOOD DRAWS; Start 11/17/20 at 16:15 Sodium Chloride 1,000 ml @ 1,000 mls/hr Q1H IV Last administered on 11/17/20at 17:50; Start 11/17/20 at 16:15; Stop 11/17/20 at 17:14; Status DC Fentanyl Citrate (Fentanyl 2ml Vial) 25 mcg PRN Q1HR PRN IV PAIN Last administered on 11/24/20at 09:28; Start 11/17/20 at 16:15 Lactulose (Lactulose) 20 gm PRN Q12HR PRN PO CONSTIPATION; Start 11/17/20 at 16:15; Stop 11/17/20 at 17:40; Status DC Bisacodyl (Dulcolax Supp) 10 mg PRN DAILY PRN VT CONSTIPATION; Start 11/17/20 at 16:15 Pantoprazole Sodium (PROTONIX VIAL for IV PUSH) 40 mg DAILYAC IVP ; Start 11/18/20 at 07:30; Stop 11/17/20 at 17:40; Status DC Lactulose (LACTULOSE 300ML for RECTAL) 200 gm Q6HRS VT ; Start 11/17/20 at 18:00; Stop 11/17/20 at 17:40; Status DC Sodium Bicarbonate 75 meq/Sodium Chloride 1,075 ml @ 125 mls/hr Q8H36M IV Last administered on 11/19/20at 05:44; Start 11/17/20 at 17:00; Stop 11/19/20 at 09:16; Status DC Pantoprazole Sodium (PROTONIX VIAL for IV PUSH) 80 mg 1X ONCE IVP Last administered on 11/17/20at 17:50; Start 11/17/20 at 18:00; Stop 11/17/20 at 18:01; Status DC Pantoprazole Sodium 80 mg/ Sodium Chloride 100 ml @ 10 mls/hr Q10H IV Last administered on 11/21/20at 12:30; Start 11/17/20 at 18:00; Stop 11/21/20 at 13:52; Status DC Octreotide Acetate 500 mcg/ Sodium Chloride 101 ml @ 10.1 mls/hr CONT PRN IV SEE I/O RECORD Last administered on 11/21/20at 12:30; Start 11/17/20 at 17:30; Stop 11/21/20 at 13:52; Status DC Lactulose (LACTULOSE 300ML for RECTAL) 200 gm Q2HR VT Last administered on 11/20/20at 13:23; Start 11/17/20 at 18:00; Stop 11/20/20 at 19:16; Status DC Magnesium Sulfate 50 ml @ 25 mls/hr 1X ONCE IV Last administered on 11/17/20at 18:34; Start 11/17/20 at 18:30; Stop 11/17/20 at 20:29; Status DC Albumin Human 500 ml @ 125 mls/hr PRN DAILY PRN IV HYPOTENSION Last administered on 11/18/20at 01:47; Start 11/18/20 at 00:15 Multivitamins 10 ml/Thiamine HCl 100 mg/Folic Acid 1 mg/Sodium Chloride 1,011.2 ml @ 100 mls/ hr DAILY IV Last administered on 11/21/20at 09:17; Start 11/18/20 at 09:00; Stop 11/21/20 at 13:58; Status DC Thiamine HCl 100 mg/Dextrose 51 ml @ 100 mls/hr DAILY IV ; Start 11/23/20 at 09:00; Stop 11/27/20 at 09:31; Status Cancel Lorazepam (Ativan) 2 mg Q6H PO ; Start 11/18/20 at 08:00; Stop 11/19/20 at 01:14; Status DC Lactulose (Lactulose) 30 gm PRN DAILY PRN PO GI SYMPTOMS; Start 11/18/20 at 08:00; Status UNV Lactulose (Lactulose) 30 gm PRN DAILY PRN PO GI SYMPTOMS; Start 11/18/20 at 08:30; Status UNV Piperacillin Sod/ Tazobactam Sod (Zosyn Per Pharmacy) 1 each PRN DAILY PRN MC SEE COMMENTS; Start 11/18/20 at 12:00; Stop 11/26/20 at 13:15; Status DC Piperacillin Sod/ Tazobactam Sod 3.375 gm/Sodium Chloride 50 ml @ 100 mls/hr Q6HRS IV Last administered on 11/26/20at 12:07; Start 11/18/20 at 12:00; Stop 11/26/20 at 13:15; Status DC Phytonadione (Vitamin K Ampule) 5 mg 1X ONCE SQ Last administered on 11/18/20at 12:50; Start 11/18/20 at 12:15; Stop 11/18/20 at 12:16; Status DC Lorazepam (Ativan Inj) 2 mg PRN Q1HR PRN IV For CIWA 8-14 Last administered on 11/26/20at 21:41; Start 11/18/20 at 18:15 Potassium Chloride/Water 100 ml @ 100 mls/hr Q1H IV Last administered on 11/19/20at 09:30; Start 11/19/20 at 08:30; Stop 11/19/20 at 10:29; Status DC Magnesium Sulfate 50 ml @ 25 mls/hr PRN DAILY PRN IV for Mag < 1.7 on am labs Last administered on 11/26/20at 07:35; Start 11/19/20 at 08:30 Albumin Human 100 ml @ 100 mls/hr TID IV Last administered on 11/20/20at 22:11; Start 11/19/20 at 10:00; Stop 11/20/20 at 21:59; Status DC Lorazepam (Ativan Inj) 4 mg PRN Q1HR PRN IV For CIWA 15 or greater Last administered on 11/26/20at 16:28; Start 11/19/20 at 10:00 Dexmedetomidine HCl 400 mcg/ Sodium Chloride 100 ml @ 0 mls/hr CONT PRN IV PER PROTOCOL Last administered on 11/24/20at 11:06; Start 11/19/20 at 10:00 Sodium Chloride 500 ml @ 500 mls/hr 1X PRN PRN IV SEE COMMENTS; Start 11/19/20 at 10:00 Atropine Sulfate (ATROPINE 0.5mg SYRINGE) 0.5 mg PRN Q5MIN PRN IV SEE COMMENTS; Start 11/19/20 at 10:00 Calcium Gluconate 1000 mg/Sodium Chloride 110 ml @ 220 mls/hr 1X ONCE IV ; Start 11/19/20 at 14:00; Stop 11/19/20 at 14:29; Status UNV Calcium Gluconate 1000 mg/Sodium Chloride 110 ml @ 220 mls/hr 1X ONCE IV Last administered on 11/19/20at 14:29; Start 11/19/20 at 15:00; Stop 11/19/20 at 15:29; Status DC Potassium Chloride/Water 100 ml @ 100 mls/hr Q1H IV Last administered on 11/20/20at 16:11; Start 11/20/20 at 10:30; Stop 11/20/20 at 14:29; Status DC Lactulose (Lactulose) 20 gm QID FT Last administered on 11/26/20at 21:38; Start 11/20/20 at 17:00 Lactulose (Lactulose) 20 gm STK-MED ONCE .ROUTE ; Start 11/20/20 at 16:09; Stop 11/20/20 at 16:09; Status DC Albumin Human 100 ml @ As Directed STK-MED ONCE IV ; Start 11/20/20 at 22:06; Stop 11/20/20 at 22:07; Status DC Lactulose (Lactulose) 20 gm STK-MED ONCE .ROUTE ; Start 11/20/20 at 22:07; Stop 11/20/20 at 22:07; Status DC Lactulose (Lactulose) 20 gm STK-MED ONCE .ROUTE ; Start 11/21/20 at 09:04; Stop 11/21/20 at 09:05; Status DC Potassium Chloride/Water 100 ml @ 100 mls/hr Q1H IV Last administered on 11/21/20at 11:16; Start 11/21/20 at 09:30; Stop 11/21/20 at 11:29; Status DC Rifaximin (Xifaxan) 550 mg Q12HR PO Last administered on 11/26/20at 21:39; St art 11/21/20 at 12:30 Info (Tpn Per Pharmacy) 1 each PRN DAILY PRN MC SEE COMMENTS Last administered on 11/24/20at 15:59; Start 11/21/20 at 14:00; Stop 11/24/20 at 18:58; Status DC Potassium Phosphate 15 mmol/ Sodium Chloride 255 ml @ 127.5 mls/ hr 1X ONCE IV Last administered on 11/21/20at 14:19; Start 11/21/20 at 14:00; Stop 11/21/20 at 15:59; Status DC Pantoprazole Sodium (PROTONIX VIAL for IV PUSH) 40 mg BID IVP Last administered on 11/26/20at 21:39; Start 11/21/20 at 21:00 Potassium Chloride 50 meq/ Potassium Phosphate 13.6 mmol/Magnesium Sulfate 10 meq/ Calcium Gluconate 10 meq/ Multivitamins 5 ml/Zinc/Copper/ Manganese/ Se lenium 1 ml/ Thiamine HCl 100 mg/Folic Acid 1 mg/Total Parenteral Nutrition/Amino Acids/Dextrose/ Fat Emuls... 1,800 ml @ 75 mls/hr TPN CONT IV Last administered on 11/21/20at 22:55; Start 11/21/20 at 22:00; Stop 11/22/20 at 21:59; Status DC Rifaximin (Xifaxan) 550 mg STK-MED ONCE PO ; Start 11/21/20 at 14:17; Stop 11/21/20 at 14:17; Status DC Lactulose (Lactulose) 20 gm STK-MED ONCE .ROUTE ; Start 11/21/20 at 14:17; Stop 11/21/20 at 14:17; Status DC Daptomycin 470 mg/ Sodium Chloride 50 ml @ 100 mls/hr Q24H IV Last administered on 11/25/20at 13:18; Start 11/22/20 at 13:00; Stop 11/26/20 at 13:15; Status DC Potassium Phosphate 15 mmol/ Sodium Chloride 255 ml @ 127.5 mls/ hr 1X ONCE IV Last administered on 11/22/20at 13:20; Start 11/22/20 at 14:00; Stop 11/22/20 at 15:59; Status DC Potassium Acetate 50 meq/Potassium Phosphate 18 mmol/ Magnesium Sulfate 10 meq/Calcium Gluconate 10 meq/ Multivitamins 5 ml/Zinc/Copper/ Manganese/ Selenium 1 ml/ Thiamine HCl 100 mg/Folic Acid 1 mg/Total Parenteral Nutrit ion/Amino Acids/Dextrose 1,800 ml @ 75 mls/hr TPN CONT IV Last administered on 11/22/20at 21:37; Start 11/22/20 at 22:00; Stop 11/23/20 at 21:59; Status DC Potassium Chloride/Water 100 ml @ 100 mls/hr 1X ONCE IV Last administered on 11/22/20at 15:20; Start 11/22/20 at 16:00; Stop 11/22/20 at 16:59; Status DC Albuterol Sulfate (Ventolin Neb Soln) 2.5 mg PRN Q4HRS PRN NEB SHORTNESS OF BREATH Last administered on 11/23/20at 11:53; Start 11/23/20 at 09:15 Potassium Phosphate 15 mmol/ Sodium Chloride 255 ml @ 127.5 mls/ hr 1X ONCE IV Last administered on 11/23/20at 10:39; Start 11/23/20 at 11:00; Stop 11/23/20 at 12:59; Status DC Potassium Acetate 50 meq/Potassium Phosphate 21 mmol/ Magnesium Sulfate 10 meq/Calcium Gluconate 10 meq/ Multivitamins 5 ml/Zinc/Copper/ Manganese/ Selenium 1 ml/ Thiamine HCl 100 mg/Folic Acid 1 mg/Total Parenteral Nutrition/Amino Acids/Dextrose 1,800 ml @ 75 mls/hr TPN CONT IV Last administered on 11/23/20at 21:54; Start 11/23/20 at 22:00; Stop 11/24/20 at 18:59; Status DC Amlodipine Besylate (Norvasc) 10 mg DAILY PO Last administered on 11/26/20at 09:40; Start 11/24/20 at 09:00 Amlodipine Besylate (Norvasc) 10 mg 1X ONCE PO Last administered on 11/23/20at 10:03; Start 11/23/20 at 10:00; Stop 11/23/20 at 10:01; Status DC Labetalol HCl (Normodyne Iv Push) 20 mg PRN Q4HRS PRN IVP HYPERTENSION Last administered on 11/24/20at 09:24; Start 11/24/20 at 09:30; Stop 11/24/20 at 10:40; Status DC Enalaprilat (Vasotec Inj) 2.5 mg PRN Q6HRS PRN IVP HYPERTENSION-2ND CHOICE Last administered on 11/26/20at 09:40; Start 11/24/20 at 10:15 Labetalol HCl (Normodyne Iv Push) 20 mg PRN Q2HR PRN IVP HYPERTENSION Last ad ministered on 11/27/20at 00:14; Start 11/24/20 at 10:45 Magnesium Sulfate 50 ml @ 25 mls/hr 1X ONCE IV Last administered on 11/24/20at 11:03; Start 11/24/20 at 12:00; Stop 11/24/20 at 13:59; Status DC Potassium Acetate 50 meq/Potassium Phosphate 21 mmol/ Magnesium Sulfate 10 meq/Calcium Gluconate 10 meq/ Multivitamins 5 ml/Zinc/Copper/ Manganese/ Selenium 1 ml/ Thiamine HCl 100 mg/Folic Acid 1 mg/Total Parenteral Nutrition/Amino Acids/Dextrose 1,800 ml @ 75 mls/hr TPN CONT IV ; Start 11/24/20 at 22:00; Stop 11/24/20 at 18:59; Status DC Insulin Human Lispro (HumaLOG) 0-5 UNITS TIDWMEALS SQ ; Start 11/24/20 at 17:00; Stop 11/24/20 at 12:43; Status DC Dextrose (Dextrose 50%-Water Syringe) 12.5 gm PRN Q15MIN PRN IV SEE COMMENTS; Start 11/24/20 at 12:45; Status Cancel Nicardipine HCl 50 mg/Sodium Chloride 250 ml @ 25 mls/hr CONT PRN IV SEE I/O RECORD Last administered on 11/24/20at 22:35; Start 11/24/20 at 12:45 Insulin Human Lispro (HumaLOG) 0-7 UNITS TIDWMEALS SQ ; Start 11/24/20 at 17:00; Stop 11/24/20 at 18:58; Status DC Dextrose (Dextrose 50%-Water Syringe) 12.5 gm PRN Q15MIN PRN IV SEE COMMENTS; Start 11/24/20 at 12:45 Insulin Human Lispro (HumaLOG) 0-7 UNITS Q6HRS SQ Last administered on 11/27/20at 00:15; Start 11/25/20 at 00:00 Ibuprofen (Motrin) 600 mg PRN Q6HRS PRN PO INFLAMMATION Last administered on 11/27/20at 04:19; Start 11/25/20 at 11:15 Magnesium Sulfate 50 ml @ 25 mls/hr 1X ONCE IV Last administered on 11/25/20at 14:02; Start 11/25/20 at 12:00; Stop 11/25/20 at 13:59; Status DC Magnesium Sulfate 50 ml @ 25 mls/hr 1X ONCE IV ; Start 11/26/20 at 13:45; Stop 11/26/20 at 15:44; Status DC Metronidazole 100 ml @ 100 mls/hr Q8HRS IV Last administered on 11/27/20at 06:00; Start 11/26/20 at 14:00 Cefepime HCl (Maxipime) 1 gm Q8HRS IVP Last administered on 11/27/20at 06:00; Start 11/26/20 at 14:00 Linezolid/Dextrose 300 ml @ 300 mls/hr Q12HR IV Last administered on 11/26/20at 21:40; Start 11/26/20 at 21:00 Micafungin Sodium 100 mg/Dextrose 100 ml @ 100 mls/hr Q24H IV Last administered on 11/26/20at 14:28; Start 11/26/20 at 14:00 Potassium Chloride (Klor-Con) 40 meq 1X ONCE PO Last administered on 11/27/20at 06:36; Start 11/27/20 at 07:00; Stop 11/27/20 at 07:01; Status DC Magnesium Sulfate 100 ml @ 50 mls/hr 1X ONCE IV Last administered on 11/27/20at 06:37; Start 11/27/20 at 07:00; Stop 11/27/20 at 08:59; Status DC Vitals/I & O Vital Sign - Last 24 Hours 11/26/20 11/26/20 11/26/20 11/26/20 11:00 12:00 12:00 13:00 Temp 99.9 99.9 Pulse 112 109 112 Resp 38 36 38 B/P (MAP) 164/85 (111) 178/82 (114) 179/95 (123) Pulse Ox 99 99 98 O2 Delivery Nasal Cannula Nasal Cannula Nasal Cannula Nasal Cannula O2 Flow Rate 2.0 2.0 2.0 2.0 11/26/20 11/26/20 11/26/20/25/21 13:19 14:00 15:00 15:35 Pulse 112 95 96 Resp 36 36 B/P (MAP) 179/95 157/75 (102) 153/78 (103) Pulse Ox 98 97 O2 Delivery Nasal Cannula Nasal Cannula Nasal Cannula O2 Flow Rate 2.0 2.0 2.0 11/26/20 11/26/20 11/26/20 11/26/20 16:00 16:27 17:00 18:00 Temp 99.2 99.2 Pulse 98 98 83 86 Resp 32 25 24 B/P (MAP) 190/85 (120) 190/85 150/73 (98) 128/67 (87) Pulse Ox 98 95 96 O2 Delivery Nasal Cannula Nasal Cannula Nasal Cannula O2 Flow Rate 2.0 2.0 2.0 11/26/20 11/26/20 11/26/20 11/26/20 19:00 20:00 20:00 21:00 Temp 99.3 99.3 Pulse 98 98 98 Resp 38 36 36 B/P (MAP) 148/92 (110) 164/85 (111) 169/85 (113) Pulse Ox 96 96 97 O2 Delivery Nasal Cannula Nasal Cannula Nasal Cannula Nasal Cannula O2 Flow Rate 2.0 2.0 2.0 2.0 11/26/20 11/26/20 11/27/20 11/27/20 22:00 23:00 00:01 00:01 Temp 98.7 98.7 Pulse 100 93 97 Resp 38 24 26 B/P (MAP) 155/84 (107) 173/108 (129) 166/93 (117) Pulse Ox 96 96 97 O2 Delivery Nasal Cannula Nasal Cannula Nasal Cannula Nasal Cannula O2 Flow Rate 2.0 2.0 2.0 2.0 11/27/20 11/27/20 11/27/20 11/27/20 00:14 01:00 02:00 03:00 Pulse 93 99 102 104 Resp 37 35 33 B/P (MAP) 173/108 152/78 (102) 156/81 (106) 158/71 (100) Pulse Ox 97 97 100 O2 Delivery Nasal Cannula Nasal Cannula Nasal Cannula O2 Flow Rate 2.0 2.0 2.0 11/27/20 11/27/20 11/27/20 11/27/20 04:00 04:00 05:00 06:00 Temp 100.3 99.3 100.3 99.3 Pulse 95 98 104 Resp 30 25 27 B/P (MAP) 160/81 (107) 141/73 (95) 166/86 (112) Pulse Ox 100 98 99 O2 Delivery Nasal Cannula Nasal Cannula Nasal Cannula Nasal Cannula O2 Flow Rate 2.0 2.0 2.0 2.0 Intake and Output 11/26/20 11/26/20 11/27/20 15:00 23:00 07:00 Intake Total 560 ml 1469 ml 1329 ml Output Total 1375 ml 2025 ml 600 ml Balance -815 ml -556 ml 729 ml Justicifation of Admission Dx: Justifications for Admission: Justification of Admission Dx: Yes Sepsis: Altered Mental Status Altered Mental Status: Altered Mental Status MADDISON COLE MD Nov 27, 2020 10:32
--- NOTE | 2020-11-27 11:39 | PDOC ---
[employer] PROGRESS NOTE Date of Service DOS: DATE: 11/27/20 TIME: 11:34 Chief Complaint Chief Complaint Confusion History of Present Illness History of Present Illness 11/27/2020 Patient seen and examined in ICU. She tried to speak more today than she has previously, but not able to understand her very well Spoke to nursing chart reviewed Still on Procalamine 40cc/hour Magnesium still low at 1.7 11/26/2020 Patient seen and examined in ICU. Patient was awake but did not talk. Spoke with Rene, the patient's . She has spoken some words to him. Spoke with RN. NG feeding 40cc/hr. 11/25/2020 Patient seen and examined in ICU Remains extremely encephalopathic Spoke with RN Spoke with patient's on the phone, he is distraught over her condition. Blood pressure still high Fever today of 100.6. 11/24/2020 Patient seen and examined in the ICU She remains extremely encephalopathic Eyes open but does not really make eye contact Discussed with RN Her pressures are running high Have added an IV labetalol and IV Vasotec Prognosis guarded and she is still critically ill 11/23/20 Patient seen and examined in ICU Chart review, discussed with nursing and lining caser Still visibly jaundiced, tried to speak but unable to form words Lab work improving since beginning lactulose and rifaxamin. Bilirubin down. Patient did have new onset wheezing today and spoke to nursing about starting PRN nebulizers. 11/22/20 Patient seen and examined in the ICU Chart reviewed, discussed with nursing and lining caser Still visibly jaundiced, encephalopathic, but eyes open. Anemia - 6.8. WBC count up to 81. PEG not tolerated. GI considering TPN Patient started on lactulose + rifaxamin per GI FFP being considered for coagulopathy. 11/21/20 Patient seen and examined in the ICU Chart reviewed Still visibly jaundiced Respiratory rate improved to around 25 today, was around 30-35 yesterday. Anemia improving; at Hgb of 6.6 today. Ordered 1 unit PRBC this morning. Hypothermia resolved; temp today 98.1 WBC count improved to 6. Patient now on PEG tube. Dex for sedation Octreotide drip IV Protonix Continue rectal bag Wood to BSD in place 11/20/20 Patient seen and examined in the ICU Chart reviewed She is visibly jaundiced Very anemic with HBG at 2.44 Hypothermic today with temp of 97.5 F (04:00), up from 94.4 F yesterday (20:00) White blood cells trending downward from normal, today WBC are 3.7 Dex for sedation Octreotide drip in the room IV Protonix going Continue rectal bag Wood to BSD in place 11/19/20 VERY ANEMIC, HYPOTENSIVE 11-18 MELD score on admit is 40, PROGNOSIS VERY GUARDED ECHO pending, cardiology consulted Stools slightly red per RN NH4 pending IONIZED CA 1.05 VIT D LEVEL pending 11/18/20 VERY ANEMIC, HYPOTENSIVE OVERNIGHT ECHO pending, cardiology consulted NH4 pending ID CONSULT NEUROLOGY CONSULT Gen Surg consult 11/17/20 Ms Phipps is a 40yo F w/ PMHx morbid obesity s/p gastric bypass ini 2008, alcohol use disorder, Anxiety, Depression, Hypertension, IBS, Kidney Stones, Pancreatitis, chronic back pain, and smoker who presented to [facility] ED in [place], [place] via EMS for altered mental status. Her called because patient has been on couch has been increasingly confused over the past 5 days. Per EMS report she had a fall a few days ago when she was intoxicated. EKG appears sinus tachycardia, heart rate [address] elevation or depression, no ectopy. Normal intervals. T waves unremarkable. CT chest abdomen pelvis revealed severe hepatic steatosis and cholelithiasis with hydropic gallbladder and gastric bypass, no other acute findings. CT head with no acute hemorrhage. Labs with WBC 7.5, Hb 6.4, platelets 237, Na 130, K 4.3, BUN 10, Cr 2.3, glucose 72, Trop 0, BNP 939, Albumin 1.8, INR 4.9, ammonia 44, bilirubin 11, AST 2744, ALT 400, Alk phos 172, Lipase 42 Given concern for acute liver failure and acute renal failure patient accepted for transfer to [facility] for specialist consultation. Seen bedside with her , patient following very few commands, otherwise drowsy, not oriented, moaning, not articulating well or making meaningful eye contact. notes that sometimes this might happen for a week at a time at home and frightens their 11 and 17 year old children. He notes "it has been a rough year". She [facility] after a DUI and parole violation of intoxication with alcohol that led to her serving 17 [place] [facility] [place]. She has struggled with substance use disorder, specifically alcohol, according to her since her gastric bypass in 2008, has been previously treated for this as well as pancreatitis. Admitted to ICU for further treatment. Due to the inability to maintain a peripheral IV and concern for potential uncontrollable bleeding in the neck a right femoral central venous catheter was placed for medications, blood transfusion and lab draw purposes for frequent lab draws. Vitals/I&O Vitals/I&O: Vital Signs Date Time Temp Pulse Resp B/P (MAP) Pulse Ox O2 Delivery O2 Flow Rate FiO2 11/27/20 06:00 104 27 166/86 (112) 99 Nasal Cannula 2.0 11/27/20 05:00 99.3 99.3 I & O 11/26/20 11/26/20 11/27/20 15:00 23:00 07:00 Intake Total 560 ml 1469 ml 1329 ml Output Total 1375 ml 2025 ml 600 ml Balance -815 ml -556 ml 729 ml Physical Exam Physical Exam: GENERAL: Awake, lethargic HEENT: Sclerae icteric. NG tube in place. Oral cavity is dry. NECK: Supple. LUNGS: Clear bilaterally. labored. HEART: S1, S2. No murmurs. Regular. ABDOMEN: Obese, soft, Bowel sounds present, does not grimace on deep palpation. + rectal tube : Wood (chg 11/25) EXTREMITIES: Edema present no cyanosis. DERMATOLOGIC: No generalized rash. Multiple tattoos. CENTRAL NERVOUS SYSTEM: Lethargic, muffled speech RUE PICC line (11/20), some bruising present. General: mild distress, Other (Can barely tell me the year very garbled speech) Heart: Regular rate Lungs: Clear Abdomen: Soft, Other (obese ) Extremities: No cyanosis Skin: No breakdown, Other (Visibly jaundiced.) Labs Labs: Laboratory Tests Test 11/26/20 11:55 11/26/20 12:09 11/26/20 17:48 11/27/20 00:10 Urine Test Negative (NEG) Glucose (Fingerstick) 119 mg/dL (70-99) 154 mg/dL (70-99) 165 mg/dL (70-99) Test 11/27/20 04:10 White Blood Count 11.6 x10^3/uL (4.0-11.0) Red Blood Count 2.45 x10^6/uL (3.50-5.40) Hemoglobin 7.4 g/dL (12.0-15.5) Hematocrit 24.0 % (36.0-47.0) Mean Corpuscular Volume 98 fL (79-100) Mean Corpuscular Hemoglobin 30 pg (25-35) Mean Corpuscular Hemoglobin Concent 31 g/dL (31-37) Red Cell Distribution Width 22.4 % (11.5-14.5) Platelet Count 109 x10^3/uL (140-400) Neutrophils (%) (Auto) 73 % (31-73) Lymphocytes (%) (Auto) 14 % (24-48) Monocytes (%) (Auto) 10 % (0-9) Eosinophils (%) (Auto) 3 % (0-3) Basophils (%) (Auto) 1 % (0-3) Neutrophils # (Auto) 8.5 x10^3/uL (1.8-7.7) Lymphocytes # (Auto) 1.6 x10^3/uL (1.0-4.8) Monocytes # (Auto) 1.1 x10^3/uL (0.0-1.1) Eosinophils # (Auto) 0.3 x10^3/uL (0.0-0.7) Basophils # (Auto) 0.1 x10^3/uL (0.0-0.2) Sodium Level 145 mmol/L (136-145) Potassium Level 3.2 mmol/L (3.5-5.1) Chloride Level 114 mmol/L (98-107) Carbon Dioxide Level 21 mmol/L (21-32) Anion Gap 10 (6-14) Blood Urea Nitrogen 11 mg/dL (7-20) Creatinine 0.5 mg/dL (0.6-1.0) Estimated GFR (Cockcroft-Gault) 136.0 BUN/Creatinine Ratio 22 (6-20) Glucose Level 119 mg/dL (70-99) Calcium Level 8.5 mg/dL (8.5-10.1) Phosphorus Level 2.6 mg/dL (2.6-4.7) Magnesium Level 1.7 mg/dL (1.8-2.4) Total Bilirubin 5.6 mg/dL (0.2-1.0) Aspartate Amino Transf (AST/SGOT) 124 U/L (15-37) Alanine Aminotransferase (ALT/SGPT) 41 U/L (14-59) Alkaline Phosphatase 103 U/L (46-116) Total Protein 5.9 g/dL (6.4-8.2) Albumin 2.4 g/dL (3.4-5.0) Albumin/Globulin Ratio 0.7 (1.0-1.7) Assessment and Plan Assessmemt and Plan Assessment Leukocytosis Thrombocytopenia Hypomagnesemia - 1.7 today Hypertension Fever resolved Pulmonary effusion Acute metabolic encephalopathy - seems likely hepatic in origin due fatty liver and alcoholic liver disease Coagulopathy Acute anemia Acute renal failure Acute liver failure - MELD score on admit is 40 Acute hepatitis - possibly alcoholic etiology Hydropic gallbladder with gallbladder sludge per [place] Alcohol use disorder Plan Appreciate ID input ( started patient on cefepime/flagyl/zyvox/micafungin. WBC count reduced to 11.6 fever resolving) Continue monitoring WBC and platelet counts. - platelets at 109 today down from 136 Continue treating fever with ibuprofen 600mg q6 hours prn Continue IV Vasotec and IV labetalol, IV Nicardipine prn prn Nebulizers. Monitor INR Total bilirubin at 5.6, down from 6.3 ICU monitoring CIWA protocol Trend labs DVT Prophylaxis Continue home medication Full code Prognosis guarded Appreciate subspecialist input CC time 32-minute Comment Review of Relevant I have reviewed the following items josue (where applicable) has been applied. Medications: Current Medications Medications (Trade) Dose Ordered Sig/Saud Route PRN Reason Start Time Stop Time Status Last Admin Dose Admin Metronidazole 100 ml @ 100 mls/hr Q8HRS IV 11/26/20 14:00 11/27/20 06:00 Cefepime HCl (Maxipime) 1 gm Q8HRS IVP 11/26/20 14:00 11/27/20 06:00 Linezolid/Dextrose 300 ml @ 300 mls/hr Q12HR IV 11/26/20 21:00 11/26/20 21:40 Micafungin Sodium 100 mg/Dextrose 100 ml @ 100 mls/hr Q24H IV 11/26/20 14:00 11/26/20 14:28 Potassium Chloride (Klor-Con) 40 meq 1X ONCE PO 11/27/20 07:00 11/27/20 07:01 DC 11/27/20 06:36 Magnesium Sulfate 100 ml @ 50 mls/hr 1X ONCE IV 11/27/20 07:00 11/27/20 08:59 DC 11/27/20 06:37 Justifications for Admission General Conditions Poss tachycardia?: Yes Justification for admission: Patient has tachycardia (> 100 beats per minute) which is not readily corrected by appropriate treatment within 12 to 24 hours. Poss Metaboilic Acidosis?: Yes Justification for admission: Patient has tachycardia (> 100 beats per minute) or hypotension (SBP < 90 mm Hg) leading to inadequate systemic perfusion as indicated by metabolic acidosis with arterial pH of less than 7.35. Altered mental status?: Yes Justification of admission: Patient has tachycardia (> 100 beats per minute) or hypotension (SBP < 90 mm Hg) leading to inadequate systemic perfusion as indicated by severe/persistent altered mental status. Other Justification MOOK CHRISTOPHER III DO Nov 27, 2020 11:39
--- NOTE | 2020-11-27 11:59 | PDOC ---
Date of Service: DATE: 11/27/20 TIME: 11:51 Objective: Objective: D/w nurse - lots of rectal tube output on lactulose, tolerating tube feeds, no bleeding, gets anxious. Vital Signs: Vital Signs Date Time Temp Pulse Resp B/P (MAP) Pulse Ox O2 Delivery O2 Flow Rate FiO2 11/27/20 06:00 104 27 166/86 (112) 99 Nasal Cannula 2.0 11/27/20 05:00 99.3 99.3 Labs: Laboratory Tests Test 11/26/20 11:55 11/26/20 12:09 11/26/20 17:48 11/27/20 00:10 Urine Test Negative Glucose (Fingerstick) 119 mg/dL 154 mg/dL 165 mg/dL Test 11/27/20 04:10 11/27/20 11:47 White Blood Count 11.6 x10^3/uL Red Blood Count 2.45 x10^6/uL Hemoglobin 7.4 g/dL Hematocrit 24.0 % Mean Corpuscular Volume 98 fL Mean Corpuscular Hemoglobin 30 pg Mean Corpuscular Hemoglobin Concent 31 g/dL Red Cell Distribution Width 22.4 % Platelet Count 109 x10^3/uL Neutrophils (%) (Auto) 73 % Lymphocytes (%) (Auto) 14 % Monocytes (%) (Auto) 10 % Eosinophils (%) (Auto) 3 % Basophils (%) (Auto) 1 % Neutrophils # (Auto) 8.5 x10^3/uL Lymphocytes # (Auto) 1.6 x10^3/uL Monocytes # (Auto) 1.1 x10^3/uL Eosinophils # (Auto) 0.3 x10^3/uL Basophils # (Auto) 0.1 x10^3/uL Sodium Level 145 mmol/L Potassium Level 3.2 mmol/L Chloride Level 114 mmol/L Carbon Dioxide Level 21 mmol/L Anion Gap 10 Blood Urea Nitrogen 11 mg/dL Creatinine 0.5 mg/dL Estimated GFR (Cockcroft-Gault) 136.0 BUN/Creatinine Ratio 22 Glucose Level 119 mg/dL Calcium Level 8.5 mg/dL Phosphorus Level 2.6 mg/dL Magnesium Level 1.7 mg/dL Total Bilirubin 5.6 mg/dL Aspartate Amino Transf (AST/SGOT) 124 U/L Alanine Aminotransferase (ALT/SGPT) 41 U/L Alkaline Phosphatase 103 U/L Total Protein 5.9 g/dL Albumin 2.4 g/dL Albumin/Globulin Ratio 0.7 Glucose (Fingerstick) 125 mg/dL BLOOD CULTURE Final NO GROWTH AFTER 5 DAYS URINE CULTURE Final Final 80,000 CFU/ML YEAST on 11/24/20 at 1318 FINAL ID= [[id number] [email or web address]] Imaging: CXR 11/26 IMPRESSION: Stable diffuse mixed interstitial and alveolar infiltrate and enlarged cardiac silhouette. PE: GEN: had scooted self down in bed - helped adjust w/ nurse LUNGS: NC, tachypnea HEART: mildly tachycardic ABD: soft, non-tender, OG feeds running, liquid brown stool in rectal tube NEURO/PSYCH: is more alert compared to last week - mumbles some responses/difficult to understand some words A/P: Liver disease, encephalopathy, anemia -- Lots of output from rectal tube - can back off on lactulose. Will review ideal stool output on lactulose w/ Dr. Moreno and adjust dose accordingly - also on Xifaxan and PPI. Justicifation of Admission Dx: Justifications for Admission: Justification of Admission Dx: Yes Sepsis: Altered Mental Status Altered Mental Status: Altered Mental Status CHAVA DUKE Nov 27, 2020 11:58
--- NOTE | 2020-11-27 12:11 | PDOC ---
Renal-Progress Notes Subjective Notes Notes NO NEW COMPLAINTS History of Present Illness Hx of present illness CONFUSED, STABLE Vitals Vitals Vital Signs Date Time Temp Pulse Resp B/P (MAP) Pulse Ox O2 Delivery O2 Flow Rate FiO2 11/27/20 06:00 104 27 166/86 (112) 99 Nasal Cannula 2.0 11/27/20 05:00 99.3 99.3 Weight Weight [ ] I.O. Intake and Output Intake and Output 11/27/20 07:00 Intake Total 3358 ml Output Total 4000 ml Balance -642 ml IV Total 880 ml Tube Feeding 1878 ml Other 600 ml Output Urine Total 3000 ml Stool Total 1000 ml Labs Labs Laboratory Tests Test 11/26/20 17:48 11/27/20 00:10 11/27/20 04:10 11/27/20 11:47 Glucose (Fingerstick) 154 mg/dL (70-99) 165 mg/dL (70-99) 125 mg/dL (70-99) White Blood Count 11.6 x10^3/uL (4.0-11.0) Red Blood Count 2.45 x10^6/uL (3.50-5.40) Hemoglobin 7.4 g/dL (12.0-15.5) Hematocrit 24.0 % (36.0-47.0) Mean Corpuscular Volume 98 fL (79-100) Mean Corpuscular Hemoglobin 30 pg (25-35) Mean Corpuscular Hemoglobin Concent 31 g/dL (31-37) Red Cell Distribution Width 22.4 % (11.5-14.5) Platelet Count 109 x10^3/uL (140-400) Neutrophils (%) (Auto) 73 % (31-73) Lymphocytes (%) (Auto) 14 % (24-48) Monocytes (%) (Auto) 10 % (0-9) Eosinophils (%) (Auto) 3 % (0-3) Basophils (%) (Auto) 1 % (0-3) Neutrophils # (Auto) 8.5 x10^3/uL (1.8-7.7) Lymphocytes # (Auto) 1.6 x10^3/uL (1.0-4.8) Monocytes # (Auto) 1.1 x10^3/uL (0.0-1.1) Eosinophils # (Auto) 0.3 x10^3/uL (0.0-0.7) Basophils # (Auto) 0.1 x10^3/uL (0.0-0.2) Sodium Level 145 mmol/L (136-145) Potassium Level 3.2 mmol/L (3.5-5.1) Chloride Level 114 mmol/L (98-107) Carbon Dioxide Level 21 mmol/L (21-32) Anion Gap 10 (6-14) Blood Urea Nitrogen 11 mg/dL (7-20) Creatinine 0.5 mg/dL (0.6-1.0) Estimated GFR (Cockcroft-Gault) 136.0 BUN/Creatinine Ratio 22 (6-20) Glucose Level 119 mg/dL (70-99) Calcium Level 8.5 mg/dL (8.5-10.1) Phosphorus Level 2.6 mg/dL (2.6-4.7) Magnesium Level 1.7 mg/dL (1.8-2.4) Total Bilirubin 5.6 mg/dL (0.2-1.0) Aspartate Amino Transf (AST/SGOT) 124 U/L (15-37) Alanine Aminotransferase (ALT/SGPT) 41 U/L (14-59) Alkaline Phosphatase 103 U/L (46-116) Total Protein 5.9 g/dL (6.4-8.2) Albumin 2.4 g/dL (3.4-5.0) Albumin/Globulin Ratio 0.7 (1.0-1.7) Micro Micro Microbiology 11/22/20 Urine Culture - Final, Complete 11/22/20 Blood Culture - Preliminary, Resulted NO GROWTH AFTER 4 DAYS Review of Systems Constitutional: yes: other (UNABLE TO OBTAIN) Physical Exam General Appearance: no apparent distress Skin: warm Respiratory: decreased breath sounds Heart: S1S2 Abdomen: soft, bowel sounds present Genitourinary: bladder flat Neurology: alert, confused, other Assessment Assessment IMP EARL-RESOLVED HYPOMAGNESEMIA HYPERNATREMIA-RESOLVED LOW K LIVER FAILURE ETOH ABUSE ENCEPHALOPATHY SEPSIS PLAN REPLACE MAG AND K ALBUMIN NEEDED ANTIBIOTICS LABS IN AM JOSE ANGEL HA MD Nov 27, 2020 12:11
[2020-11-27] MEDS: rifAXIMin 550 MG TABLET PO SCH ×2 (14:17→23:46)
[2020-11-27] MEDS: amLODIPine BESYLATE 10 MG TABLET PO SCH (14:18)
[2020-11-27] MEDS: MICAFUNGIN 100 MG in IV DEXTROSE 5% 100ML 100 ML IV SCH (14:22)
--- NOTE | 2020-11-27 20:30 | RAD ---
Exam: Abdomen one INDICATION: Replaced NG tube TECHNIQUE: Frontal view of the chest Comparisons: 11/20/2020 FINDINGS: Enteric tube with tip in the left upper quadrant likely coiled in the stomach. No dilated loops of bowel identified. IMPRESSION: Lines and tubes described. Electronically signed by: Margie Medellin MD (11/27/2020 8:28 PM) NALLELY
--- NOTE | 2020-11-27 22:45 | RAD ---
Exam: Abdomen one view INDICATION: Replaced NG tube TECHNIQUE: Frontal view of the abdomen Comparisons: None FINDINGS: There is an enteric tube with tip in the left upper quadrant likely within stomach. Visualized bowel gas pattern is nonobstructive. IMPRESSION: Lines and tubes described above. Electronically signed by: Margie Medellin MD (11/27/2020 10:43 PM) NALLELY
[2020-11-28] VITALS (7 sets, daily range): BP systolic 143–160; BP diastolic 72–89
[2020-11-28] MEDS: LABETALOL 20 MG/4 ML DISP.SYRIN. IVP PRN (00:38)
[2020-11-28] MEDS: INSULIN LISPRO 300 UNITS/3 ML VIAL. SQ SCH ×3 (05:30→18:00)
[2020-11-28] MEDS: CEFEPIME HCL IV Push 1 GM VIAL. IVP SCH ×3 (05:32→21:38)
[2020-11-28 05:54] LABS: BASO # 0.1 x10^3/uL (0.0-0.2); BASO % 1 % (0-3); EOS # 0.3 x10^3/uL (0.0-0.7); EOS % 3 % (0-3); HEMATOCRIT 22.9 % (36.0-47.0); HEMOGLOBIN 7.3 g/dL (12.0-15.5); LYMPH # 1.6 x10^3/uL (1.0-4.8); LYMPH % 15 % (24-48); MEAN CORPUSCULAR HEMOGLOBIN 32 pg (25-35); MEAN CORPUSCULAR HGB CONC 32 g/dL (31-37); MEAN CORPUSCULAR VOLUME 100 fL (79-100); MONO # 1.1 x10^3/uL (0.0-1.1); MONO % 10 % (0-9); NEUT # 7.8 x10^3/uL (1.8-7.7); NEUT % 72 % (31-73); PLATELET COUNT 95 x10^3/uL (140-400); RED CELL DISTRIBUTION WIDTH 23.2 % (11.5-14.5); WHITE BLOOD COUNT 10.8 x10^3/uL (4.0-11.0)
[2020-11-28 06:20] LABS: ALBUMIN 2.2 g/dL (3.4-5.0); ALBUMIN/GLOBULIN RATIO 0.6 (1.0-1.7); CALCIUM 8.1 mg/dL (8.5-10.1); CREATININE 0.5 mg/dL (0.6-1.0); POTASSIUM 3.1 mmol/L (3.5-5.1); TOTAL BILIRUBIN 5.1 mg/dL (0.2-1.0); TOTAL PROTEIN 5.8 g/dL (6.4-8.2)
[2020-11-28 06:22] LABS: MAGNESIUM 1.6 mg/dL (1.8-2.4); PHOSPHORUS 2.6 mg/dL (2.6-4.7)
[2020-11-28] MEDS: ELECTROLYTE (ICU) PROTOCOL. MC SCH (09:00)
[2020-11-28] MEDS: amLODIPine BESYLATE 10 MG TABLET PO SCH (10:12)
[2020-11-28] MEDS: PANTOPRAZOLE IV PUSH 40 MG VIAL. IVP SCH ×2 (10:13→10:19)
[2020-11-28] MEDS: rifAXIMin 550 MG TABLET PO SCH ×2 (10:13→21:39)
[2020-11-28] MEDS: LACTULOSE 20 GM/30 ML SOLUTION. FT SCH (10:18)
--- NOTE | 2020-11-28 10:32 | PDOC ---
Renal-Progress Notes Subjective Notes Notes CONFUSED History of Present Illness Hx of present illness NO ACUTE CHANGES Vitals Vitals Vital Signs Date Time Temp Pulse Resp B/P (MAP) Pulse Ox O2 Delivery O2 Flow Rate FiO2 11/28/20 10:12 99 166/75 11/28/20 07:37 99.8 31 96 Room Air 99.8 11/27/20 23:00 2.0 Weight Weight [ ] I.O. Intake and Output Intake and Output 11/28/20 07:00 Intake Total 2265 ml Output Total 2395 ml Balance -130 ml Tube Feeding 1865 ml Blood Product IV Normal Saline Flush 100 ml Other 300 ml Output Urine Total 2395 ml Labs Labs Laboratory Tests Test 11/27/20 11:47 11/27/20 17:13 11/27/20 23:42 11/28/20 05:28 Glucose (Fingerstick) 125 mg/dL (70-99) 154 mg/dL (70-99) 136 mg/dL (70-99) 126 mg/dL (70-99) Test 11/28/20 05:45 White Blood Count 10.8 x10^3/uL (4.0-11.0) Red Blood Count 2.30 x10^6/uL (3.50-5.40) Hemoglobin 7.3 g/dL (12.0-15.5) Hematocrit 22.9 % (36.0-47.0) Mean Corpuscular Volume 100 fL (79-100) Mean Corpuscular Hemoglobin 32 pg (25-35) Mean Corpuscular Hemoglobin Concent 32 g/dL (31-37) Red Cell Distribution Width 23.2 % (11.5-14.5) Platelet Count 95 x10^3/uL (140-400) Neutrophils (%) (Auto) 72 % (31-73) Lymphocytes (%) (Auto) 15 % (24-48) Monocytes (%) (Auto) 10 % (0-9) Eosinophils (%) (Auto) 3 % (0-3) Basophils (%) (Auto) 1 % (0-3) Neutrophils # (Auto) 7.8 x10^3/uL (1.8-7.7) Lymphocytes # (Auto) 1.6 x10^3/uL (1.0-4.8) Monocytes # (Auto) 1.1 x10^3/uL (0.0-1.1) Eosinophils # (Auto) 0.3 x10^3/uL (0.0-0.7) Basophils # (Auto) 0.1 x10^3/uL (0.0-0.2) Sodium Level 145 mmol/L (136-145) Potassium Level 3.1 mmol/L (3.5-5.1) Chloride Level 112 mmol/L (98-107) Carbon Dioxide Level 21 mmol/L (21-32) Anion Gap 12 (6-14) Blood Urea Nitrogen 9 mg/dL (7-20) Creatinine 0.5 mg/dL (0.6-1.0) Estimated GFR (Cockcroft-Gault) 136.0 BUN/Creatinine Ratio 18 (6-20) Glucose Level 128 mg/dL (70-99) Calcium Level 8.1 mg/dL (8.5-10.1) Phosphorus Level 2.6 mg/dL (2.6-4.7) Magnesium Level 1.6 mg/dL (1.8-2.4) Total Bilirubin 5.1 mg/dL (0.2-1.0) Aspartate Amino Transf (AST/SGOT) 128 U/L (15-37) Alanine Aminotransferase (ALT/SGPT) 43 U/L (14-59) Alkaline Phosphatase 96 U/L (46-116) Total Protein 5.8 g/dL (6.4-8.2) Albumin 2.2 g/dL (3.4-5.0) Albumin/Globulin Ratio 0.6 (1.0-1.7) Micro Micro Microbiology 11/26/20 Blood Culture - Preliminary, Resulted NO GROWTH AFTER 1 DAY 11/22/20 Urine Culture - Final, Complete Review of Systems Constitutional: yes: other (UNABLE TO OBTAIN) Physical Exam General Appearance: no apparent distress Skin: warm Respiratory: decreased breath sounds Heart: S1S2 Abdomen: soft, bowel sounds present Genitourinary: bladder flat Neurology: alert, confused, other Assessment Assessment IMP EARL-RESOLVED HYPOMAGNESEMIA HYPERNATREMIA-RESOLVED LOW K LIVER FAILURE ETOH ABUSE ENCEPHALOPATHY SEPSIS PLAN REPLACE MAG AND K ANTIBIOTICS LABS IN JOSE ANGEL HA MD Nov 28, 2020 10:32
--- NOTE | 2020-11-28 10:45 | PDOC ---
Infectious Disease Note Subjective: Subjective Patient remains lethargic Temperature 99.8 Off O2 by nasal cannula Tube feedings Vital Signs: Vital Signs Vital Signs Date Time Temp Pulse Resp B/P (MAP) Pulse Ox O2 Delivery O2 Flow Rate FiO2 11/28/20 10:12 99 166/75 11/28/20 08:00 Room Air 11/28/20 07:37 99.8 31 96 99.8 11/27/20 23:00 2.0 Physical Exam: PHYSICAL EXAM GENERAL: Awake, lethargic HEENT: PERRL,EOMI, NG tube in place. Oral cavity is dry. NECK: Supple. LUNGS: Clear bilaterally. labored. HEART: S1, S2. No murmurs. Regular. ABDOMEN: Obese, soft, Bowel sounds present, does not grimace on deep palpation. + rectal tube : Kathleen (chg 11/25) EXTREMITIES: Edema present no cyanosis. DERMATOLOGIC: No generalized rash. Multiple tattoos. CENTRAL NERVOUS SYSTEM: Lethargic, muffled speech RUE PICC line (11/20), some bruising present. Medications: Inpatient Meds: Medications reviewed. Labs: Lab Laboratory Tests Test 11/27/20 11:47 11/27/20 17:13 11/27/20 23:42 11/28/20 05:28 Glucose (Fingerstick) 125 mg/dL (70-99) 154 mg/dL (70-99) 136 mg/dL (70-99) 126 mg/dL (70-99) Test 11/28/20 05:45 White Blood Count 10.8 x10^3/uL (4.0-11.0) Red Blood Count 2.30 x10^6/uL (3.50-5.40) Hemoglobin 7.3 g/dL (12.0-15.5) Hematocrit 22.9 % (36.0-47.0) Mean Corpuscular Volume 100 fL (79-100) Mean Corpuscular Hemoglobin 32 pg (25-35) Mean Corpuscular Hemoglobin Concent 32 g/dL (31-37) Red Cell Distribution Width 23.2 % (11.5-14.5) Platelet Count 95 x10^3/uL (140-400) Neutrophils (%) (Auto) 72 % (31-73) Lymphocytes (%) (Auto) 15 % (24-48) Monocytes (%) (Auto) 10 % (0-9) Eosinophils (%) (Auto) 3 % (0-3) Basophils (%) (Auto) 1 % (0-3) Neutrophils # (Auto) 7.8 x10^3/uL (1.8-7.7) Lymphocytes # (Auto) 1.6 x10^3/uL (1.0-4.8) Monocytes # (Auto) 1.1 x10^3/uL (0.0-1.1) Eosinophils # (Auto) 0.3 x10^3/uL (0.0-0.7) Basophils # (Auto) 0.1 x10^3/uL (0.0-0.2) Sodium Level 145 mmol/L (136-145) Potassium Level 3.1 mmol/L (3.5-5.1) Chloride Level 112 mmol/L (98-107) Carbon Dioxide Level 21 mmol/L (21-32) Anion Gap 12 (6-14) Blood Urea Nitrogen 9 mg/dL (7-20) Creatinine 0.5 mg/dL (0.6-1.0) Estimated GFR (Cockcroft-Gault) 136.0 BUN/Creatinine Ratio 18 (6-20) Glucose Level 128 mg/dL (70-99) Calcium Level 8.1 mg/dL (8.5-10.1) Phosphorus Level 2.6 mg/dL (2.6-4.7) Magnesium Level 1.6 mg/dL (1.8-2.4) Total Bilirubin 5.1 mg/dL (0.2-1.0) Aspartate Amino Transf (AST/SGOT) 128 U/L (15-37) Alanine Aminotransferase (ALT/SGPT) 43 U/L (14-59) Alkaline Phosphatase 96 U/L (46-116) Total Protein 5.8 g/dL (6.4-8.2) Albumin 2.2 g/dL (3.4-5.0) Albumin/Globulin Ratio 0.6 (1.0-1.7) Objective: Assessment: Sepsis Fever Portosystemic encephalopathy Acute liver failure, likely from alcoholism with hyperbilirubinemia. Improving slowly Acute renal failure. Anemia. Status post PRBC Coagulopathy. Protein-calorie malnutrition. History of gastroesophageal reflux disease, GI bleed, gastritis, pancreatitis, peptic ulcer disease. History of anxiety and depression. Hydropic gallbladder with hepatic steatosis. Femoral line removed Diarrhea on lactulose UC Taina albicans Pulm infiltrates Plan: Plan of Care Cefepime/Flagy DC micafungin and Zyvox Monitor WBC trend and temp BC neg to date Maintain aspiration precaution. Change kathleen if not done already Critically ill D/w nursing DAGMAR MALCOLM MD Nov 28, 2020 10:45
--- NOTE | 2020-11-28 11:13 | PDOC ---
Date of Service: DATE: 11/28/20 TIME: 11:06 Subjective: Subjective: Talking more today - difficult to understand. Objective: Objective: D/w nurse - to replace rectal tube. NG replaced. Reviewed neuro note - metabolic encephalopathy. Vital Signs: Vital Signs Date Time Temp Pulse Resp B/P (MAP) Pulse Ox O2 Delivery O2 Flow Rate FiO2 11/28/20 10:12 99 166/75 11/28/20 08:00 Room Air 11/28/20 07:37 99.8 31 96 99.8 11/27/20 23:00 2.0 Labs: Laboratory Tests Test 11/27/20 11:47 11/27/20 17:13 11/27/20 23:42 11/28/20 05:28 Glucose (Fingerstick) 125 mg/dL 154 mg/dL 136 mg/dL 126 mg/dL Test 11/28/20 05:45 White Blood Count 10.8 x10^3/uL Red Blood Count 2.30 x10^6/uL Hemoglobin 7.3 g/dL Hematocrit 22.9 % Mean Corpuscular Volume 100 fL Mean Corpuscular Hemoglobin 32 pg Mean Corpuscular Hemoglobin Concent 32 g/dL Red Cell Distribution Width 23.2 % Platelet Count 95 x10^3/uL Neutrophils (%) (Auto) 72 % Lymphocytes (%) (Auto) 15 % Monocytes (%) (Auto) 10 % Eosinophils (%) (Auto) 3 % Basophils (%) (Auto) 1 % Neutrophils # (Auto) 7.8 x10^3/uL Lymphocytes # (Auto) 1.6 x10^3/uL Monocytes # (Auto) 1.1 x10^3/uL Eosinophils # (Auto) 0.3 x10^3/uL Basophils # (Auto) 0.1 x10^3/uL Sodium Level 145 mmol/L Potassium Level 3.1 mmol/L Chloride Level 112 mmol/L Carbon Dioxide Level 21 mmol/L Anion Gap 12 Blood Urea Nitrogen 9 mg/dL Creatinine 0.5 mg/dL Estimated GFR (Cockcroft-Gault) 136.0 BUN/Creatinine Ratio 18 Glucose Level 128 mg/dL Calcium Level 8.1 mg/dL Phosphorus Level 2.6 mg/dL Magnesium Level 1.6 mg/dL Total Bilirubin 5.1 mg/dL Aspartate Amino Transf (AST/SGOT) 128 U/L Alanine Aminotransferase (ALT/SGPT) 43 U/L Alkaline Phosphatase 96 U/L Total Protein 5.8 g/dL Albumin 2.2 g/dL Albumin/Globulin Ratio 0.6 BLOOD CULTURE Preliminary NO GROWTH AFTER 1 DAY Imaging: KUB 11/27 IMPRESSION: Lines and tubes described above. PE: GEN: NAD LUNGS: CTAB HEART: RRR ABD: large and soft, NG feeds running NEURO/PSYCH: does seem more awake, not always making sense A/P: Liver disease, encephalopathy, anemia Hypomagnesemia, hypokalemia - renal following -- Continue NG feeds, PPI, and Xifaxan. Will keep lactulose QD for now - ?consider stopping - ammonia normal 11/24. Green swabs to keep mouth moist - probably not ready mental-status abdalla for FINANCIAL REPORTING CONSULTANT eval yet. MELD 19 w/ most recent labs. Long-term prognosis poor. Justicifation of Admission Dx: Justifications for Admission: Justification of Admission Dx: Yes Sepsis: Altered Mental Status Altered Mental Status: Altered Mental Status CHAVA DUKE Nov 28, 2020 11:13
[2020-11-28] MEDS ORDERED: POTASSIUM CHLORIDE 20MEQ 100 ML IV ONE (11:30)
--- NOTE | 2020-11-28 12:22 | PDOC ---
[employer] PROGRESS NOTE Date of Service DOS: DATE: 11/28/20 TIME: 12:17 Chief Complaint Chief Complaint Confusion History of Present Illness History of Present Illness 11/28/2020 Patient seen and examined in ICU Spoke with nursing, chart reviewed Patient depressed some 11/27/2020 Patient seen and examined in ICU. She tried to speak more today than she has previously, but not able to understand her very well Spoke to nursing chart reviewed 11/26/2020 Patient seen and examined in ICU. Patient was awake but did not talk. Spoke with Rene, the patient's . She has spoken some words to him. Spoke with RN. NG feeding 40cc/hr. 11/25/2020 Patient seen and examined in ICU Remains extremely encephalopathic Spoke with RN Spoke with patient's on the phone, he is distraught over her condition. Blood pressure still high Fever today of 100.6. 11/24/2020 Patient seen and examined in the ICU She remains extremely encephalopathic Eyes open but does not really make eye contact Discussed with RN Her pressures are running high Have added an IV labetalol and IV Vasotec Prognosis guarded and she is still critically ill 11/23/20 Patient seen and examined in ICU Chart review, discussed with nursing and case reviewer Still visibly jaundiced, tried to speak but unable to form words Lab work improving since beginning lactulose and rifaxamin. Bilirubin down. Patient did have new onset wheezing today and spoke to nursing about starting PRN nebulizers. 11/22/20 Patient seen and examined in the ICU Chart reviewed, discussed with nursing and case reviewer Still visibly jaundiced, encephalopathic, but eyes open. Anemia - 6.8. WBC count up to 81. PEG not tolerated. GI considering TPN Patient started on lactulose + rifaxamin per GI FFP being considered for coagulopathy. 11/21/20 Patient seen and examined in the ICU Chart reviewed Still visibly jaundiced Respiratory rate improved to around 25 today, was around 30-35 yesterday. Anemia improving; at Hgb of 6.6 today. Ordered 1 unit PRBC this morning. Hypothermia resolved; temp today 98.1 WBC count improved to 6. Patient now on PEG tube. Dex for sedation Octreotide drip IV Protonix Continue rectal bag Wood to BSD in place 11/20/20 Patient seen and examined in the ICU Chart reviewed She is visibly jaundiced Very anemic with HBG at 2.44 Hypothermic today with temp of 97.5 F (04:00), up from 94.4 F yesterday (20:00) White blood cells trending downward from normal, today WBC are 3.7 Dex for sedation Octreotide drip in the room IV Protonix going Continue rectal bag Wood to BSD in place 11/19/20 VERY ANEMIC, HYPOTENSIVE 4- MELD score on admit is 40, PROGNOSIS VERY GUARDED ECHO pending, cardiology consulted Stools slightly red per RN NH4 pending IONIZED CA 1.05 VIT D LEVEL pending 11/18/20 VERY ANEMIC, HYPOTENSIVE OVERNIGHT ECHO pending, cardiology consulted NH4 pending ID CONSULT NEUROLOGY CONSULT Gen Surg consult 11/17/20 Ms Phipps is a 40yo F w/ PMHx morbid obesity s/p gastric bypass ini 2008, a lcohol use disorder, Anxiety, Depression, Hypertension, IBS, Kidney Stones, Pancreatitis, chronic back pain, and smoker who presented to [facility] ED in [place], [place] via EMS for altered mental status. Her called because patient has been on couch has been increasingly confused over the past 5 days. Per EMS report she had a fall a few days ago when she was intoxicated. EKG appears sinus tachycardia, heart rate [address] elevation or depression, no ectopy. Normal intervals. T waves unremarkable. CT chest abdomen pelvis revealed severe hepatic steatosis and cholelithiasis with hydropic gallbladder and gastric bypass, no other acute findings. CT head with no acute hemorrhage. Labs with WBC 7.5, Hb 6.4, platelets 237, Na 130, K 4.3, BUN 10, Cr 2.3, glucose 72, Trop 0, BNP 939, Albumin 1.8, INR 4.9, ammonia 44, bilirubin 11, AST 2744, ALT 400, Alk phos 172, Lipase 42 Given concern for acute liver failure and acute renal failure patient accepted for transfer to [facility] for specialist consultation. Seen bedside with her , patient following very few commands, otherwise drowsy, not oriented, moaning, not articulating well or making meaningful eye contact. notes that sometimes this might happen for a week at a time at home and frightens their 11 and 17 year old children. He notes "it has been a rough year". She was released from incarceration in [facility] assisted last October after a DUI and parole violation of intoxication with alcohol that led to her serving 17 months in [place]. She has struggled with substance use disorder, specifically alcohol, according to her since her gastric bypass in 2008, has been previously treated for this as well as pancreatitis. Admitted to ICU for further treatment. Due to the inability to maintain a peripheral IV and concern for potential uncontrollable bleeding in the neck a right femoral central venous catheter was placed for medications, blood transfusion and lab draw purposes for frequent lab draws. Vitals/I&O Vitals/I&O: Vital Signs Date Time Temp Pulse Resp B/P (MAP) Pulse Ox O2 Delivery O2 Flow Rate FiO2 11/28/20 11:00 99.6 92 32 158/78 (104) 95 Room Air 99.6 11/27/20 23:00 2.0 I & O 11/27/20 11/27/20 11/28/20 15:00 23:00 07:00 Intake Total 455 ml 1110 ml 700 ml Output Total 960 ml 485 ml 950 ml Balance -505 ml 625 ml -250 ml Physical Exam Physical Exam: GENERAL: Awake, lethargic HEENT: PERRL,EOMI, NG tube in place. Oral cavity is dry. NECK: Supple. LUNGS: Clear bilaterally. labored. HEART: S1, S2. No murmurs. Regular. ABDOMEN: Obese, soft, Bowel sounds present, does not grimace on deep palpation. + rectal tube : Wood (chg 11/25) EXTREMITIES: Edema present no cyanosis. DERMATOLOGIC: No generalized rash. Multiple tattoos. CENTRAL NERVOUS SYSTEM: Lethargic, muffled speech RUE PICC line (11/20), some bruising present. General: Alert, mild distress Heart: Regular rate Lungs: Clear Abdomen: Soft, Other (obese ) Extremities: No cyanosis Skin: No breakdown, Other (Visibly jaundiced.) Labs Labs: Laboratory Tests Test 11/27/20 17:13 11/27/20 23:42 11/28/20 05:28 11/28/20 05:45 Glucose (Fingerstick) 154 mg/dL (70-99) 136 mg/dL (70-99) 126 mg/dL (70-99) White Blood Count 10.8 x10^3/uL (4.0-11.0) Red Blood Count 2.30 x10^6/uL (3.50-5.40) Hemoglobin 7.3 g/dL (12.0-15.5) Hematocrit 22.9 % (36.0-47.0) Mean Corpuscular Volume 100 fL (79-100) Mean Corpuscular Hemoglobin 32 pg (25-35) Mean Corpuscular Hemoglobin Concent 32 g/dL (31-37) Red Cell Distribution Width 23.2 % (11.5-14.5) Platelet Count 95 x10^3/uL (140-400) Neutrophils (%) (Auto) 72 % (31-73) Lymphocytes (%) (Auto) 15 % (24-48) Monocytes (%) (Auto) 10 % (0-9) Eosinophils (%) (Auto) 3 % (0-3) Basophils (%) (Auto) 1 % (0-3) Neutrophils # (Auto) 7.8 x10^3/uL (1.8-7.7) Lymphocytes # (Auto) 1.6 x10^3/uL (1.0-4.8) Monocytes # (Auto) 1.1 x10^3/uL (0.0-1.1) Eosinophils # (Auto) 0.3 x10^3/uL (0.0-0.7) Basophils # (Auto) 0.1 x10^3/uL (0.0-0.2) Sodium Level 145 mmol/L (136-145) Potassium Level 3.1 mmol/L (3.5-5.1) Chloride Level 112 mmol/L (98-107) Carbon Dioxide Level 21 mmol/L (21-32) Anion Gap 12 (6-14) Blood Urea Nitrogen 9 mg/dL (7-20) Creatinine 0.5 mg/dL (0.6-1.0) Estimated GFR (Cockcroft-Gault) 136.0 BUN/Creatinine Ratio 18 (6-20) Glucose Level 128 mg/dL (70-99) Calcium Level 8.1 mg/dL (8.5-10.1) Phosphorus Level 2.6 mg/dL (2.6-4.7) Magnesium Level 1.6 mg/dL (1.8-2.4) Total Bilirubin 5.1 mg/dL (0.2-1.0) Aspartate Amino Transf (AST/SGOT) 128 U/L (15-37) Alanine Aminotransferase (ALT/SGPT) 43 U/L (14-59) Alkaline Phosphatase 96 U/L (46-116) Total Protein 5.8 g/dL (6.4-8.2) Albumin 2.2 g/dL (3.4-5.0) Albumin/Globulin Ratio 0.6 (1.0-1.7) Test 11/28/20 11:17 Glucose (Fingerstick) 151 mg/dL (70-99) Assessment and Plan Assessmemt and Plan Assessment Acute liver failure - MELD score on admit is 40 Acute hepatitis - possibly alcoholic etiology Leukocytosis Thrombocytopenia Hypomagnesemia Hypertension Fever Pulmonary effusion Acute metabolic encephalopathy - seems likely hepatic in origin due fatty liver and alcoholic liver disease Coagulopathy Acute anemia Acute renal failure Hydropic gallbladder with gallbladder sludge per [place] Alcohol use disorder Depression Plan Adding Prozac for depression Vital HP 40cc/hour per OG New blood cultures 11/26 no growth so far Appreciate ID input - currently on cefepime/flagyl/zyvox/micafungin. Continue monitoring WBC, fever, and platelet counts Continue treating fever with ibuprofen 600mg q6 hours prn Continue IV Vasotec and IV labetalol, IV Nicardipine prn prn Nebulizers. Monitor INR, total bilirubin ICU monitoring [facility] protocol Trend labs DVT Prophylaxis Continue home medication Full code Prognosis guarded Appreciate subspecialist input CC time 32-minute Comment Review of Relevant I have reviewed the following items josue (where applicable) has been applied. Medications: Current Medications Medications (Trade) Dose Ordered Sig/Saud Route PRN Reason Start Time Stop Time Status Last Admin Dose Admin Lactulose (Lactulose) 20 gm DAILY FT 11/28/20 09:00 11/28/20 10:18 Pantoprazole Sodium (PROTONIX VIAL for IV PUSH) 40 mg DAILY IVP 11/28/20 07:30 11/28/20 10:19 Potassium Chloride/Water 100 ml @ 100 mls/hr 1X ONCE IV 11/28/20 11:30 11/28/20 12:29 11/28/20 11:02 Justifications for Admission General Conditions Poss tachycardia?: Yes Justification for admission: Patient has tachycardia (> 100 beats per minute) which is not readily corrected by appropriate treatment within 12 to 24 hours. Poss Metaboilic Acidosis?: Yes Justification for admission: Patient has tachycardia (> 100 beats per minute) or hypotension (SBP < 90 mm Hg) leading to inadequate systemic perfusion as indicated by metabolic acidosis with arterial pH of less than 7.35. Altered mental status?: Yes Justification of admission: Patient has tachycardia (> 100 beats per minute) or hypotension (SBP < 90 mm Hg) leading to inadequate systemic perfusion as indicated by severe/persistent altered mental status. Other Justification MOOK CHRISTOPHER III DO Nov 28, 2020 12:22
[2020-11-28] MEDS ORDERED: ELECTROLYTE (NON-ICU) PROTOCOL. MC PRN (13:00)
--- NOTE | 2020-11-28 15:20 | NUR ---
SS following up with discharge planning. SS reviewed pt chart and discussed with pt RN. Pt is currently on room air. COVID19 negative. Pt on IV Cefepime. Pt NPO. NG tube in place. Lactulose through NG tube. CIWA protocol. ETOH. PAT team referral made for assessment and recommendations. PT/OT/ST ordered. Pt transferred to room 660. Gabriela REDDY to follow.
[2020-11-28] MEDS ORDERED: MAGNESIUM SULFATE 2GM 50 ML IV ONE (16:00)
[2020-11-29 02:50] VITALS: BP 160/69
[2020-11-29] MEDS: INSULIN LISPRO 300 UNITS/3 ML VIAL. SQ SCH ×4 (06:00→17:58)
[2020-11-29] MEDS: CEFEPIME HCL IV Push 1 GM VIAL. IVP SCH (06:24)
[2020-11-29 07:00] VITALS: BP_SYST 178; BP_SYST 180; BP_DIAS 94; BP_DIAS 96
[2020-11-29 07:08] LABS: ALBUMIN 2.4 g/dL (3.4-5.0); ALBUMIN/GLOBULIN RATIO 0.6 (1.0-1.7); CREATININE 0.5 mg/dL (0.6-1.0); TOTAL BILIRUBIN 5.2 mg/dL (0.2-1.0); TOTAL PROTEIN 6.4 g/dL (6.4-8.2)
[2020-11-29 07:23] LABS: BASO # 0.1 x10^3/uL (0.0-0.2); BASO % 1 % (0-3); EOS # 0.2 x10^3/uL (0.0-0.7); EOS % 2 % (0-3); HEMATOCRIT 24.9 % (36.0-47.0); HEMOGLOBIN 7.9 g/dL (12.0-15.5); LYMPH # 1.5 x10^3/uL (1.0-4.8); LYMPH % 15 % (24-48); MEAN CORPUSCULAR HEMOGLOBIN 32 pg (25-35); MEAN CORPUSCULAR HGB CONC 32 g/dL (31-37); MEAN CORPUSCULAR VOLUME 100 fL (79-100); MONO # 0.9 x10^3/uL (0.0-1.1); MONO % 9 % (0-9); NEUT # 7.6 x10^3/uL (1.8-7.7); NEUT % 74 % (31-73); PLATELET COUNT 96 x10^3/uL (140-400); RED BLOOD COUNT 2.49 x10^6/uL (3.50-5.40); RED CELL DISTRIBUTION WIDTH 25.6 % (11.5-14.5); WHITE BLOOD COUNT 10.3 x10^3/uL (4.0-11.0)
--- NOTE | 2020-11-29 08:50 | PDOC ---
Infectious Disease Note Subjective: Subjective Patient more alert says wants to go home Temperature 100.3 On RA No acute issues per d/w RN Vital Signs: Vital Signs Vital Signs Date Time Temp Pulse Resp B/P (MAP) Pulse Ox O2 Delivery O2 Flow Rate FiO2 11/29/20 08:29 Room Air 11/29/20 07:00 100.3 103 22 178/96 (123) 94 100.3 Physical Exam: PHYSICAL EXAM GENERAL: Awake, lethargic HEENT: PERRL,EOMI, NG tube in place. Oral cavity is dry. NECK: Supple. LUNGS: Clear bilaterally. labored. HEART: S1, S2. No murmurs. Regular. ABDOMEN: Obese, soft, Bowel sounds present, does not grimace on deep p alpation. + rectal tube : Kathleen (chg 11/25) EXTREMITIES: Edema present no cyanosis. DERMATOLOGIC: No generalized rash. Multiple tattoos. CENTRAL NERVOUS SYSTEM: Lethargic, muffled speech RUE PICC line (11/20), some bruising present. Medications: Inpatient Meds: Medications reviewed. Labs: Lab Laboratory Tests Test 11/28/20 11:17 11/28/20 17:53 11/29/20 00:08 11/29/20 06:18 Glucose (Fingerstick) 151 mg/dL (70-99) 126 mg/dL (70-99) 132 mg/dL (70-99) White Blood Count 10.3 x10^3/uL (4.0-11.0) Red Blood Count 2.49 x10^6/uL (3.50-5.40) Hemoglobin 7.9 g/dL (12.0-15.5) Hematocrit 24.9 % (36.0-47.0) Mean Corpuscular Volume 100 fL (79-100) Mean Corpuscular Hemoglobin 32 pg (25-35) Mean Corpuscular Hemoglobin Concent 32 g/dL (31-37) Red Cell Distribution Width 25.6 % (11.5-14.5) Platelet Count 96 x10^3/uL (140-400) Neutrophils (%) (Auto) 74 % (31-73) Lymphocytes (%) (Auto) 15 % (24-48) Monocytes (%) (Auto) 9 % (0-9) Eosinophils (%) (Auto) 2 % (0-3) Basophils (%) (Auto) 1 % (0-3) Neutrophils # (Auto) 7.6 x10^3/uL (1.8-7.7) Lymphocytes # (Auto) 1.5 x10^3/uL (1.0-4.8) Monocytes # (Auto) 0.9 x10^3/uL (0.0-1.1) Eosinophils # (Auto) 0.2 x10^3/uL (0.0-0.7) Basophils # (Auto) 0.1 x10^3/uL (0.0-0.2) Sodium Level 142 mmol/L (136-145) Potassium Level 3.0 mmol/L (3.5-5.1) Chloride Level 109 mmol/L (98-107) Carbon Dioxide Level 22 mmol/L (21-32) Anion Gap 11 (6-14) Blood Urea Nitrogen 8 mg/dL (7-20) Creatinine 0.5 mg/dL (0.6-1.0) Estimated GFR (Cockcroft-Gault) 136.0 BUN/Creatinine Ratio 16 (6-20) Glucose Level 122 mg/dL (70-99) Calcium Level 8.0 mg/dL (8.5-10.1) Magnesium Level 1.7 mg/dL (1.8-2.4) Total Bilirubin 5.2 mg/dL (0.2-1.0) Aspartate Amino Transf (AST/SGOT) 138 U/L (15-37) Alanine Aminotransferase (ALT/SGPT) 45 U/L (14-59) Alkaline Phosphatase 100 U/L (46-116) Total Protein 6.4 g/dL (6.4-8.2) Albumin 2.4 g/dL (3.4-5.0) Albumin/Globulin Ratio 0.6 (1.0-1.7) Test 11/29/20 06:19 Glucose (Fingerstick) 126 mg/dL (70-99) Objective: Assessment: Sepsis Fever Portosystemic encephalopathy Acute liver failure, likely from alcoholism with hyperbilirubinemia. Improving slowly Acute renal failure. Anemia. Status post PRBC Coagulopathy. Protein-calorie malnutrition. History of gastroesophageal reflux disease, GI bleed, gastritis, pancreatitis, peptic ulcer disease. History of anxiety and depression. Hydropic gallbladder with hepatic steatosis. Femoral line removed Diarrhea on lactulose UC Taina albicans Pulm infiltrates Plan: Plan of Care DC Cefepime and flagyl BC neg to date augmentin Maintain aspiration precaution. Change kathleen if not done already D/w nursing DAGMAR MALCOLM MD Nov 29, 2020 08:50
[2020-11-29] MEDS: LACTULOSE 20 GM/30 ML SOLUTION. FT SCH (09:00)
[2020-11-29] MEDS: PANTOPRAZOLE IV PUSH 40 MG VIAL. IVP SCH (09:38)
[2020-11-29] MEDS: amLODIPine BESYLATE 10 MG TABLET PO SCH (09:39)
[2020-11-29] MEDS: THIAMINE 100 MG TABLET. PEG SCH (09:39)
[2020-11-29] MEDS: rifAXIMin 550 MG TABLET PO SCH ×2 (09:39→21:01)
[2020-11-29] MEDS: MULTIVITAMINS,THERAPEUTIC 5 ML ORAL LIQUID. PEG SCH (09:40)
[2020-11-29] MEDS: FOLIC ACID 1 MG TABLET. PEG SCH (09:40)
--- NOTE | 2020-11-29 10:28 | PDOC ---
Date of Service: DATE: 11/29/20 TIME: 10:24 Subjective: Subjective: "Waiting for Rene because the kids were too lazy to go." Says it's August in 1220 and she's at [facility]. Objective: Objective: D/w nurse - lots of stools overnight. Vital Signs: Vital Signs Date Time Temp Pulse Resp B/P (MAP) Pulse Ox O2 Delivery O2 Flow Rate FiO2 11/29/20 09:39 103 178/96 11/29/20 08:29 Room Air 11/29/20 07:00 100.3 22 94 100.3 Labs: Laboratory Tests Test 11/28/20 11:17 11/28/20 17:53 11/29/20 00:08 11/29/20 06:18 Glucose (Fingerstick) 151 mg/dL 126 mg/dL 132 mg/dL White Blood Count 10.3 x10^3/uL Red Blood Count 2.49 x10^6/uL Hemoglobin 7.9 g/dL Hematocrit 24.9 % Mean Corpuscular Volume 100 fL Mean Corpuscular Hemoglobin 32 pg Mean Corpuscular Hemoglobin Concent 32 g/dL Red Cell Distribution Width 25.6 % Platelet Count 96 x10^3/uL Neutrophils (%) (Auto) 74 % Lymphocytes (%) (Auto) 15 % Monocytes (%) (Auto) 9 % Eosinophils (%) (Auto) 2 % Basophils (%) (Auto) 1 % Neutrophils # (Auto) 7.6 x10^3/uL Lymphocytes # (Auto) 1.5 x10^3/uL Monocytes # (Auto) 0.9 x10^3/uL Eosinophils # (Auto) 0.2 x10^3/uL Basophils # (Auto) 0.1 x10^3/uL Sodium Level 142 mmol/L Potassium Level 3.0 mmol/L Chloride Level 109 mmol/L Carbon Dioxide Level 22 mmol/L Anion Gap 11 Blood Urea Nitrogen 8 mg/dL Creatinine 0.5 mg/dL Estimated GFR (Cockcroft-Gault) 136.0 BUN/Creatinine Ratio 16 Glucose Level 122 mg/dL Calcium Level 8.0 mg/dL Magnesium Level 1.7 mg/dL Total Bilirubin 5.2 mg/dL Aspartate Amino Transf (AST/SGOT) 138 U/L Alanine Aminotransferase (ALT/SGPT) 45 U/L Alkaline Phosphatase 100 U/L Total Protein 6.4 g/dL Albumin 2.4 g/dL Albumin/Globulin Ratio 0.6 Test 11/29/20 06:19 Glucose (Fingerstick) 126 mg/dL BLOOD CULTURE Preliminary NO GROWTH AFTER 2 DAYS PE: GEN: chronically ill LUNGS: NC/some diminished HEART: mildly tachycardic ABD: S/ND/NT NEURO/PSYCH: confused A/P: Liver disease, encephalopathy - ammonia normal 11/24 Anemia, thrombocytopenia, elevated bili and AST Diarrhea Hypokalemia, hypomagnesemia -- Stop lactulose, continue Xifaxan. Justicifation of Admission Dx: Justifications for Admission: Justification of Admission Dx: Yes Sepsis: Altered Mental Status Altered Mental Status: Altered Mental Status CHAVA DUKE Nov 29, 2020 10:28
[2020-11-29] MEDS ORDERED: LACTULOSE 20 GM/30 ML SOLUTION. FT PRN (10:30)
--- NOTE | 2020-11-29 10:57 | PDOC ---
PROGRESS NOTES Date of Service DATE: 11/29/20 TIME: 10:56 Assessment Metabolic encephalopathy Pancreatitis, liver failure (INR 1.7 on 11/25), renal failure, pancreatitis, history of gastric bypass for obesity, sepsis, hypothermia, anemia, coagulopathy, GERD, history of GI bleed and gastritis, history of anxiety and depression, hydropic gallbladder, hepatic steatosis, protein-calorie malnutrition. Plan No additional neurological studies planned Treat medical diseases On thiamine, rifaximin; now off lactulose Subjective Denies pain Objective Vital Signs Date Time Temp Pulse Resp B/P (MAP) Pulse Ox O2 Delivery O2 Flow Rate FiO2 11/29/20 09:39 103 178/96 11/29/20 08:29 Room Air 11/29/20 07:00 100.3 22 94 100.3 Intake and Output 11/29/20 07:00 Intake Total 900 ml Output Total 1200 ml Balance -300 ml Tube Feeding 900 ml Output Urine Total 1200 ml Stool Total 0 ml # Voids 2 # Bowel Movements 2 PHYSICAL EXAM Jaundiced Eyes open, mumbles replies, follows a few commands. Says that she is at [facility]. EOMI. CN: no focal findings. Muscle tone: normal. Muscle strength: Moves all 4 extremities to command DTR: 1+ Plantar reflex: Flexor Gait: not examined in bed. Sensory exam: Not cooperative. Cerebellar: Not cooperative Review of Relevant I have reviewed the following items josue (where applicable) has been applied. Labs Laboratory Tests Test 11/27/20 11:47 11/27/20 17:13 11/27/20 23:42 11/28/20 05:28 Glucose (Fingerstick) 125 mg/dL (70-99) 154 mg/dL (70-99) 136 mg/dL (70-99) 126 mg/dL (70-99) Test 11/28/20 05:45 11/28/20 11:17 11/28/20 17:53 11/29/20 00:08 White Blood Count 10.8 x10^3/uL (4.0-11.0) Red Blood Count 2.30 x10^6/uL (3.50-5.40) Hemoglobin 7.3 g/dL (12.0-15.5) Hematocrit 22.9 % (36.0-47.0) Mean Corpuscular Volume 100 fL (79-100) Mean Corpuscular Hemoglobin 32 pg (25-35) Mean Corpuscular Hemoglobin Concent 32 g/dL (31-37) Red Cell Distribution Width 23.2 % (11.5-14.5) Platelet Count 95 x10^3/uL (140-400) Neutrophils (%) (Auto) 72 % (31-73) Lymphocytes (%) (Auto) 15 % (24-48) Monocytes (%) (Auto) 10 % (0-9) Eosinophils (%) (Auto) 3 % (0-3) Basophils (%) (Auto) 1 % (0-3) Neutrophils # (Auto) 7.8 x10^3/uL (1.8-7.7) Lymphocytes # (Auto) 1.6 x10^3/uL (1.0-4.8) Monocytes # (Auto) 1.1 x10^3/uL (0.0-1.1) Eosinophils # (Auto) 0.3 x10^3/uL (0.0-0.7) Basophils # (Auto) 0.1 x10^3/uL (0.0-0.2) Sodium Level 145 mmol/L (136-145) Potassium Level 3.1 mmol/L (3.5-5.1) Chloride Level 112 mmol/L (98-107) Carbon Dioxide Level 21 mmol/L (21-32) Anion Gap 12 (6-14) Blood Urea Nitrogen 9 mg/dL (7-20) Creatinine 0.5 mg/dL (0.6-1.0) Estimated GFR (Cockcroft-Gault) 136.0 BUN/Creatinine Ratio 18 (6-20) Glucose Level 128 mg/dL (70-99) Calcium Level 8.1 mg/dL (8.5-10.1) Phosphorus Level 2.6 mg/dL (2.6-4.7) Magnesium Level 1.6 mg/dL (1.8-2.4) Total Bilirubin 5.1 mg/dL (0.2-1.0) Aspartate Amino Transf (AST/SGOT) 128 U/L (15-37) Alanine Aminotransferase (ALT/SGPT) 43 U/L (14-59) Alkaline Phosphatase 96 U/L (46-116) Total Protein 5.8 g/dL (6.4-8.2) Albumin 2.2 g/dL (3.4-5.0) Albumin/Globulin Ratio 0.6 (1.0-1.7) Glucose (Fingerstick) 151 mg/dL (70-99) 126 mg/dL (70-99) 132 mg/dL (70-99) Test 11/29/20 06:18 11/29/20 06:19 White Blood Count 10.3 x10^3/uL (4.0-11.0) Red Blood Count 2.49 x10^6/uL (3.50-5.40) Hemoglobin 7.9 g/dL (12.0-15.5) Hematocrit 24.9 % (36.0-47.0) Mean Corpuscular Volume 100 fL (79-100) Mean Corpuscular Hemoglobin 32 pg (25-35) Mean Corpuscular Hemoglobin Concent 32 g/dL (31-37) Red Cell Distribution Width 25.6 % (11.5-14.5) Platelet Count 96 x10^3/uL (140-400) Neutrophils (%) (Auto) 74 % (31-73) Lymphocytes (%) (Auto) 15 % (24-48) Monocytes (%) (Auto) 9 % (0-9) Eosinophils (%) (Auto) 2 % (0-3) Basophils (%) (Auto) 1 % (0-3) Neutrophils # (Auto) 7.6 x10^3/uL (1.8-7.7) Lymphocytes # (Auto) 1.5 x10^3/uL (1.0-4.8) Monocytes # (Auto) 0.9 x10^3/uL (0.0-1.1) Eosinophils # (Auto) 0.2 x10^3/uL (0.0-0.7) Basophils # (Auto) 0.1 x10^3/uL (0.0-0.2) Sodium Level 142 mmol/L (136-145) Potassium Level 3.0 mmol/L (3.5-5.1) Chloride Level 109 mmol/L (98-107) Carbon Dioxide Level 22 mmol/L (21-32) Anion Gap 11 (6-14) Blood Urea Nitrogen 8 mg/dL (7-20) Creatinine 0.5 mg/dL (0.6-1.0) Estimated GFR (Cockcroft-Gault) 136.0 BUN/Creatinine Ratio 16 (6-20) Glucose Level 122 mg/dL (70-99) Calcium Level 8.0 mg/dL (8.5-10.1) Magnesium Level 1.7 mg/dL (1.8-2.4) Total Bilirubin 5.2 mg/dL (0.2-1.0) Aspartate Amino Transf (AST/SGOT) 138 U/L (15-37) Alanine Aminotransferase (ALT/SGPT) 45 U/L (14-59) Alkaline Phosphatase 100 U/L (46-116) Total Protein 6.4 g/dL (6.4-8.2) Albumin 2.4 g/dL (3.4-5.0) Albumin/Globulin Ratio 0.6 (1.0-1.7) Glucose (Fingerstick) 126 mg/dL (70-99) Laboratory Tests Test 11/28/20 11:17 11/28/20 17:53 11/29/20 00:08 11/29/20 06:18 Glucose (Fingerstick) 151 mg/dL (70-99) 126 mg/dL (70-99) 132 mg/dL (70-99) White Blood Count 10.3 x10^3/uL (4.0-11.0) Red Blood Count 2.49 x10^6/uL (3.50-5.40) Hemoglobin 7.9 g/dL (12.0-15.5) Hematocrit 24.9 % (36.0-47.0) Mean Corpuscular Volume 100 fL (79-100) Mean Corpuscular Hemoglobin 32 pg (25-35) Mean Corpuscular Hemoglobin Concent 32 g/dL (31-37) Red Cell Distribution Width 25.6 % (11.5-14.5) Platelet Count 96 x10^3/uL (140-400) Neutrophils (%) (Auto) 74 % (31-73) Lymphocytes (%) (Auto) 15 % (24-48) Monocytes (%) (Auto) 9 % (0-9) Eosinophils (%) (Auto) 2 % (0-3) Basophils (%) (Auto) 1 % (0-3) Neutrophils # (Auto) 7.6 x10^3/uL (1.8-7.7) Lymphocytes # (Auto) 1.5 x10^3/uL (1.0-4.8) Monocytes # (Auto) 0.9 x10^3/uL (0.0-1.1) Eosinophils # (Auto) 0.2 x10^3/uL (0.0-0.7) Basophils # (Auto) 0.1 x10^3/uL (0.0-0.2) Sodium Level 142 mmol/L (136-145) Potassium Level 3.0 mmol/L (3.5-5.1) Chloride Level 109 mmol/L (98-107) Carbon Dioxide Level 22 mmol/L (21-32) Anion Gap 11 (6-14) Blood Urea Nitrogen 8 mg/dL (7-20) Creatinine 0.5 mg/dL (0.6-1.0) Estimated GFR (Cockcroft-Gault) 136.0 BUN/Creatinine Ratio 16 (6-20) Glucose Level 122 mg/dL (70-99) Calcium Level 8.0 mg/dL (8.5-10.1) Magnesium Level 1.7 mg/dL (1.8-2.4) Total Bilirubin 5.2 mg/dL (0.2-1.0) Aspartate Amino Transf (AST/SGOT) 138 U/L (15-37) Alanine Aminotransferase (ALT/SGPT) 45 U/L (14-59) Alkaline Phosphatase 100 U/L (46-116) Total Protein 6.4 g/dL (6.4-8.2) Albumin 2.4 g/dL (3.4-5.0) Albumin/Globulin Ratio 0.6 (1.0-1.7) Test 11/29/20 06:19 Glucose (Fingerstick) 126 mg/dL (70-99) Microbiology 11/26/20 Blood Culture - Preliminary, Resulted NO GROWTH AFTER 2 DAYS 11/22/20 Urine Culture - Final, Complete Medications Current Medications Lorazepam (Ativan Inj) 0.5 mg PRN Q6HRS PRN IVP ANXIETY / AGITATION Last administered on 11/18/20at 18:10; Start 11/17/20 at 16:15; Stop 11/19/20 at 01:14; Status DC Ondansetron HCl (Zofran) 4 mg PRN Q6HRS PRN IVP NAUSEA/VOMITING, 1ST CHOICE Last administered on 11/27/20at 23:53; Start 11/17/20 at 16:15 Prochlorperazine Edisylate (Compazine) 5 mg PRN Q6HRS PRN IVP NAUSEA/VOMITING, 2ND CHOICE; Start 11/17/20 at 16:15 Info (Icu Electrolyte Protocol) 1 ea DAILY MC Last administered on 11/27/20at 06:29; Start 11/18/20 at 09:00; Stop 11/28/20 at 12:44; Status DC Sodium Chloride (Normal Saline Flush) 3 ml QSHIFT PRN IV AFTER MEDS AND BLOOD DRAWS; Start 11/17/20 at 16:15 Sodium Chloride 1,000 ml @ 1,000 mls/hr Q1H IV Last administered on 11/17/20at 17:50; Start 11/17/20 at 16:15; Stop 11/17/20 at 17:14; Status DC Fentanyl Citrate (Fentanyl 2ml Vial) 25 mcg PRN Q1HR PRN IV PAIN Last administered on 11/24/20at 09:28; Start 11/17/20 at 16:15 Lactulose (Lactulose) 20 gm PRN Q12HR PRN PO CONSTIPATION; Start 11/17/20 at 16:15; Stop 11/17/20 at 17:40; Status DC Bisacodyl (Dulcolax Supp) 10 mg PRN DAILY PRN ID CONSTIPATION; Start 11/17/20 at 16:15 Pantoprazole Sodium (PROTONIX VIAL for IV PUSH) 40 mg DAILYAC IVP ; Start 11/18/20 at 07:30; Stop 11/17/20 at 17:40; Status DC Lactulose (LACTULOSE 300ML for RECTAL) 200 gm Q6HRS ID ; Start 11/17/20 at 18:00; Stop 11/17/20 at 17:40; Status DC Sodium Bicarbonate 75 meq/Sodium Chloride 1,075 ml @ 125 mls/hr Q8H36M IV Last administered on 11/19/20at 05:44; Start 11/17/20 at 17:00; Stop 11/19/20 at 09:16; Status DC Pantoprazole Sodium (PROTONIX VIAL for IV PUSH) 80 mg 1X ONCE IVP Last administered on 11/17/20at 17:50; Start 11/17/20 at 18:00; Stop 11/17/20 at 18:01; Status DC Pantoprazole Sodium 80 mg/ Sodium Chloride 100 ml @ 10 mls/hr Q10H IV Last administered on 11/21/20at 12:30; Start 11/17/20 at 18:00; Stop 11/21/20 at 13:52; Status DC Octreotide Acetate 500 mcg/ Sodium Chloride 101 ml @ 10.1 mls/hr CONT PRN IV SEE I/O RECORD Last administered on 11/21/20at 12:30; Start 11/17/20 at 17:30; Stop 11/21/20 at 13:52; Status DC Lactulose (LACTULOSE 300ML for RECTAL) 200 gm Q2HR ID Last administered on 11/20/20at 13:23; Start 11/17/20 at 18:00; Stop 11/20/20 at 19:16; Status DC Magnesium Sulfate 50 ml @ 25 mls/hr 1X ONCE IV Last administered on 11/17/20at 18:34; Start 11/17/20 at 18:30; Stop 11/17/20 at 20:29; Status DC Albumin Human 500 ml @ 125 mls/hr PRN DAILY PRN IV HYPOTENSION Last administer ed on 11/18/20at 01:47; Start 11/18/20 at 00:15 Multivitamins 10 ml/Thiamine HCl 100 mg/Folic Acid 1 mg/Sodium Chloride 1,011.2 ml @ 100 mls/ hr DAILY IV Last administered on 11/21/20at 09:17; Start 11/18/20 at 09:00; Stop 11/21/20 at 13:58; Status DC Thiamine HCl 100 mg/Dextrose 51 ml @ 100 mls/hr DAILY IV ; Start 11/23/20 at 09:00; Stop 11/27/20 at 09:31; Status Cancel Lorazepam (Ativan) 2 mg Q6H PO ; Start 11/18/20 at 08:00; Stop 11/19/20 at 01:14; Status DC Lactulose (Lactulose) 30 gm PRN DAILY PRN PO GI SYMPTOMS; Start 11/18/20 at 08:00; Status UNV Lactulose (Lactulose) 30 gm PRN DAILY PRN PO GI SYMPTOMS; Start 11/18/20 at 08:30; Status UNV Piperacillin Sod/ Tazobactam Sod (Zosyn Per Pharmacy) 1 each PRN DAILY PRN MC SEE COMMENTS; Start 11/18/20 at 12:00; Stop 11/26/20 at 13:15; Status DC Piperacillin Sod/ Tazobactam Sod 3.375 gm/Sodium Chloride 50 ml @ 100 mls/hr Q6HRS IV Last administered on 11/26/20at 12:07; Start 11/18/20 at 12:00; Stop 11/26/20 at 13:15; Status DC Phytonadione (Vitamin K Ampule) 5 mg 1X ONCE SQ Last administered on 11/18/20at 12:50; Start 11/18/20 at 12:15; Stop 11/18/20 at 12:16; Status DC Lorazepam (Ativan Inj) 2 mg PRN Q1HR PRN IV For CIWA 8-14 Last administered on 11/29/20at 00:32; Start 11/18/20 at 18:15 Potassium Chloride/Water 100 ml @ 100 mls/hr Q1H IV Last administered on 11/19/20at 09:30; Start 11/19/20 at 08:30; Stop 11/19/20 at 10:29; Status DC Magnesium Sulfate 50 ml @ 25 mls/hr PRN DAILY PRN IV for Mag < 1.7 on am labs Last administered on 11/26/20at 07:35; Start 11/19/20 at 08:30 Albumin Human 100 ml @ 100 mls/hr TID IV Last administered on 11/20/20at 22:11; Start 11/19/20 at 10:00; Stop 11/20/20 at 21:59; Status DC Lorazepam (Ativan Inj) 4 mg PRN Q1HR PRN IV For CIWA 15 or greater Last administered on 11/26/20at 16:28; Start 11/19/20 at 10:00 Dexmedetomidine HCl 400 mcg/ Sodium Chloride 100 ml @ 0 mls/hr CONT PRN IV PER PROTOCOL Last administered on 11/24/20at 11:06; Start 11/19/20 at 10:00 Sodium Chloride 500 ml @ 500 mls/hr 1X PRN PRN IV SEE COMMENTS; Start 11/19/20 at 10:00 Atropine Sulfate (ATROPINE 0.5mg SYRINGE) 0.5 mg PRN Q5MIN PRN IV SEE COMMENTS; Start 11/19/20 at 10:00 Calcium Gluconate 1000 mg/Sodium Chloride 110 ml @ 220 mls/hr 1X ONCE IV ; Start 11/19/20 at 14:00; Stop 11/19/20 at 14:29; Status UNV Calcium Gluconate 1000 mg/Sodium Chloride 110 ml @ 220 mls/hr 1X ONCE IV Last administered on 11/19/20at 14:29; Start 11/19/20 at 15:00; Stop 11/19/20 at 15:29; Status DC Potassium Chloride/Water 100 ml @ 100 mls/hr Q1H IV Last administered on 11/20/20at 16:11; Start 11/20/20 at 10:30; Stop 11/20/20 at 14:29; Status DC Lactulose (Lactulose) 20 gm QID FT Last administered on 11/26/20at 21:38; Start 11/20/20 at 17:00; Stop 11/27/20 at 11:58; Status DC Lactulose (Lactulose) 20 gm STK-MED ONCE .ROUTE ; Start 11/20/20 at 16:09; Stop 11/20/20 at 16:09; Status DC Albumin Human 100 ml @ As Directed STK-MED ONCE IV ; Start 11/20/20 at 22:06; Stop 11/20/20 at 22:07; Status DC Lactulose (Lactulose) 20 gm STK-MED ONCE .ROUTE ; Start 11/20/20 at 22:07; Stop 11/20/20 at 22:07; Status DC Lactulose (Lactulose) 20 gm STK-MED ONCE .ROUTE ; Start 11/21/20 at 09:04; Stop 11/21/20 at 09:05; Status DC Potassium Chloride/Water 100 ml @ 100 mls/hr Q1H IV Last administered on 11/21/20at 11:16; Start 11/21/20 at 09:30; Stop 11/21/20 at 11:29; Status DC Rifaximin (Xifaxan) 550 mg Q12HR PO Last administered on 11/29/20at 09:39; Start 11/21/20 at 12:30 Info (Tpn Per Pharmacy) 1 each PRN DAILY PRN MC SEE COMMENTS Last administered on 11/24/20at 15:59; Start 11/21/20 at 14:00; Stop 11/24/20 at 18:58; Status DC Potassium Phosphate 15 mmol/ Sodium Chloride 255 ml @ 127.5 mls/ hr 1X ONCE IV Last administered on 11/21/20at 14:19; Start 11/21/20 at 14:00; Stop 11/21/20 at 15:59; Status DC Pantoprazole Sodium (PROTONIX VIAL for IV PUSH) 40 mg BID IVP Last administered on 11/26/20at 21:39; Start 11/21/20 at 21:00; Stop 11/27/20 at 11:58; Status DC Potassium Chloride 50 meq/ Potassium Phosphate 13.6 mmol/Magnesium Sulfate 10 meq/ Calcium Gluconate 10 meq/ Multivitamins 5 ml/Zinc/Copper/ Manganese/ Selenium 1 ml/ Thiamine HCl 100 mg/Folic Acid 1 mg/Total Parenteral Nutrition/Amino Acids/Dextrose/ Fat Emuls... 1,800 ml @ 75 mls/hr TPN CONT IV Last administered on 11/21/20at 22:55; Start 11/21/20 at 22:00; Stop 11/22/20 at 21:59; Status DC Rifaximin (Xifaxan) 550 mg STK-MED ONCE PO ; Start 11/21/20 at 14:17; Stop 11/21/20 at 14:17; Status DC Lactulose (Lactulose) 20 gm STK-MED ONCE .ROUTE ; Start 11/21/20 at 14:17; Stop 11/21/20 at 14:17; Status DC Daptomycin 470 mg/ Sodium Chloride 50 ml @ 100 mls/hr Q24H IV Last administered on 11/25/20at 13:18; Start 11/22/20 at 13:00; Stop 11/26/20 at 13:1 5; Status DC Potassium Phosphate 15 mmol/ Sodium Chloride 255 ml @ 127.5 mls/ hr 1X ONCE IV Last administered on 11/22/20at 13:20; Start 11/22/20 at 14:00; Stop 11/22/20 at 15:59; Status DC Potassium Acetate 50 meq/Potassium Phosphate 18 mmol/ Magnesium Sulfate 10 meq/Calcium Gluconate 10 meq/ Multivitamins 5 ml/Zinc/Copper/ Manganese/ Selenium 1 ml/ Thiamine HCl 100 mg/Folic Acid 1 mg/Total Parenteral Nutrition/Amino Acids/Dextrose 1,800 ml @ 75 mls/hr TPN CONT IV Last administered on 11/22/20at 21:37; Start 11/22/20 at 22:00; Stop 11/23/20 at 21:59; Status DC Potassium Chloride/Water 100 ml @ 100 mls/hr 1X ONCE IV Last administered on 11/22/20at 15:20; Start 11/22/20 at 16:00; Stop 11/22/20 at 16:59; Status DC Albuterol Sulfate (Ventolin Neb Soln) 2.5 mg PRN Q4HRS PRN NEB SHORTNESS OF BREATH Last administered on 11/23/20at 11:53; Start 11/23/20 at 09:15 Potassium Phosphate 15 mmol/ Sodium Chloride 255 ml @ 127.5 mls/ hr 1X ONCE IV Last administered on 11/23/20at 10:39; Start 11/23/20 at 11:00; Stop 11/23/20 at 12:59; Status DC Potassium Acetate 50 meq/Potassium Phosphate 21 mmol/ Magnesium Sulfate 10 meq/Calcium Gluconate 10 meq/ Multivitamins 5 ml/Zinc/Copper/ Manganese/ Selenium 1 ml/ Thiamine HCl 100 mg/Folic Acid 1 mg/Total Parenteral Nutrit ion/Amino Acids/Dextrose 1,800 ml @ 75 mls/hr TPN CONT IV Last administered on 11/23/20at 21:54; Start 11/23/20 at 22:00; Stop 11/24/20 at 18:59; Status DC Amlodipine Besylate (Norvasc) 10 mg DAILY PO Last administered on 11/29/20 09:39; Start 11/24/20 at 09:00 Amlodipine Besylate (Norvasc) 10 mg 1X ONCE PO Last administered on 11/23/20at 10:03; Start 11/23/20 at 10:00; Stop 11/23/20 at 10:01; Status DC Labetalol HCl (Normodyne Iv Push) 20 mg PRN Q4HRS PRN IVP HYPERTENSION Last administered on 11/24/20at 09:24; Start 11/24/20 at 09:30; Stop 11/24/20 at 10:40; Status DC Enalaprilat (Vasotec Inj) 2.5 mg PRN Q6HRS PRN IVP HYPERTENSION-2ND CHOICE Last administered on 4/25/21at 09:40; Start 11/24/20 at 10:15 Labetalol HCl (Normodyne Iv Push) 20 mg PRN Q2HR PRN IVP HYPERTENSION Last administered on 11/28/20at 00:38; Start 11/24/20 at 10:45 Magnesium Sulfate 50 ml @ 25 mls/hr 1X ONCE IV Last administered on 11/24/20at 11:03; Start 11/24/20 at 12:00; Stop 11/24/20 at 13:59; Status DC Potassium Acetate 50 meq/Potassium Phosphate 21 mmol/ Magnesium Sulfate 10 meq/Calcium Gluconate 10 meq/ Multivitamins 5 ml/Zinc/Copper/ Manganese/ Se lenium 1 ml/ Thiamine HCl 100 mg/Folic Acid 1 mg/Total Parenteral Nutrition/Amino Acids/Dextrose 1,800 ml @ 75 mls/hr TPN CONT IV ; Start 11/24/20 at 22:00; Stop 11/24/20 at 18:59; Status DC Insulin Human Lispro (HumaLOG) 0-5 UNITS TIDWMEALS SQ ; Start 11/24/20 at 17:00; Stop 11/24/20 at 12:43; Status DC Dextrose (Dextrose 50%-Water Syringe) 12.5 gm PRN Q15MIN PRN IV SEE COMMENTS; Start 11/24/20 at 12:45; Status Cancel Nicardipine HCl 50 mg/Sodium Chloride 250 ml @ 25 mls/hr CONT PRN IV SEE I/O RECORD Last administered on 11/24/20at 22:35; Start 11/24/20 at 12:45 Insulin Human Lispro (HumaLOG) 0-7 UNITS TIDWMEALS SQ ; Start 11/24/20 at 17:00; Stop 11/24/20 at 18:58; Status DC Dextrose (Dextrose 50%-Water Syringe) 12.5 gm PRN Q15MIN PRN IV SEE COMMENTS; Start 11/24/20 at 12:45 Insulin Human Lispro (HumaLOG) 0-7 UNITS Q6HRS SQ Last administered on 11/28/20at 11:23; Start 11/25/20 at 00:00 Ibuprofen (Motrin) 600 mg PRN Q6HRS PRN PO INFLAMMATION Last administered on 11/27/20at 04:19; Start 11/25/20 at 11:15 Magnesium Sulfate 50 ml @ 25 mls/hr 1X ONCE IV Last administered on 11/25/20at 14:02; Start 11/25/20 at 12:00; Stop 11/25/20 at 13:59; Status DC Magnesium Sulfate 50 ml @ 25 mls/hr 1X ONCE IV ; Start 11/26/20 at 13:45; Stop 11/26/20 at 15:44; Status DC Metronidazole 100 ml @ 100 mls/hr Q8HRS IV Last administered on 11/29/20at 06:25; Start 11/26/20 at 14:00; Stop 11/29/20 at 09:12; Status DC Cefepime HCl (Maxipime) 1 gm Q8HRS IVP Last administered on 11/29/20at 06:24; Start 11/26/20 at 14:00; Stop 11/29/20 at 09:12; Status DC Linezolid/Dextrose 300 ml @ 300 mls/hr Q12HR IV Last administered on 11/28/20at 10:13; Start 11/26/20 at 21:00; Stop 11/28/20 at 11:35; Status DC Micafungin Sodium 100 mg/Dextrose 100 ml @ 100 mls/hr Q24H IV Last administe red on 11/27/20at 14:22; Start 11/26/20 at 14:00; Stop 11/28/20 at 11:35; Status DC Potassium Chloride (Klor-Con) 40 meq 1X ONCE PO Last administered on 11/27/20at 06:36; Start 11/27/20 at 07:00; Stop 11/27/20 at 07:01; Status DC Magnesium Sulfate 100 ml @ 50 mls/hr 1X ONCE IV Last administered on 11/27/20at 06:37; Start 11/27/20 at 07:00; Stop 11/27/20 at 08:59; Status DC Lactulose (Lactulose) 20 gm DAILY FT Last administered on 11/28/20at 10:18; Start 11/28/20 at 09:00; Stop 11/29/20 at 10:29; Status DC Pantoprazole Sodium (PROTONIX VIAL for IV PUSH) 40 mg DAILY IVP Last administered on 11/29/20at 09:38; Start 11/28/20 at 07:30 Potassium Chloride/Water 100 ml @ 100 mls/hr 1X ONCE IV Last administered on 11/28/20at 11:02; Start 11/28/20 at 11:30; Stop 11/28/20 at 12:29; Status DC Fluoxetine HCl (PROzac) 20 mg BID PEG Last administered on 11/29/20at 09:40; Start 11/28/20 at 21:00 Info (Non-Icu Electrolyte Protocol) 1 ea CONT PRN PRN MC SEE COMMENTS; Start 11/28/20 at 13:00 Magnesium Sulfate 50 ml @ 25 mls/hr 1X ONCE IV Last administered on 11/28/20at 16:07; Start 11/28/20 at 16:00; Stop 11/28/20 at 17:59; Status DC Thiamine Mononitrate (Vitamin B-1) 100 mg DAILY PEG Last administered on 11/29/20at 09:39; Start 11/29/20 at 09:00 Folic Acid (Folic Acid) 1 mg DAILY PEG Last administered on 11/29/20at 09:40; Start 11/29/20 at 09:00 Multivitamins/ Minerals Therapeutic (Centrum Multivit-Mineral Liq) 5 ml DAILY PEG Last administered on 11/29/20at 09:40; Start 11/29/20 at 09:00 Amoxicillin/ Clavulanate Potassium (Augmentin 875/ 125mg) 1 tab BID PO ; Start 11/29/20 at 21:00 Lactulose (Lactulose) 20 gm PRN DAILY PRN FT constipation; Start 11/29/20 at 10:30 Vitals/I & O Vital Sign - Last 24 Hours 11/28/20 11/28/20 11/28/20 11/28/20 11:00 12:44 15:17 19:00 Temp 99.6 99.0 99.3 97.9 99.6 99.0 99.3 97.9 Pulse 92 95 100 96 Resp 32 20 22 19 B/P (MAP) 158/78 (104) 145/80 (101) 151/89 (109) 152/85 (107) Pulse Ox 95 95 99 94 O2 Delivery Room Air Room Air Room Air Room Air 11/28/20 11/28/20 11/29/20 11/29/20 20:00 23:00 02:50 07:00 Temp 97.9 97.8 100.3 97.9 97.8 100.3 Pulse 99 72 103 Resp 19 18 22 B/P (MAP) 154/72 (99) 160/69 (99) 178/96 (123) Pulse Ox 95 95 94 O2 Delivery Room Air Room Air Room Air Room Air 11/29/20 11/29/20 08:29 09:39 Pulse 103 B/P (MAP) 178/96 O2 Delivery Room Air Intake and Output 11/28/20 11/28/20 11/29/20 15:00 23:00 07:00 Intake Total 300 ml 300 ml 300 ml Output Total 0 ml 1200 ml Balance 300 ml -900 ml 300 ml Justicifation of Admission Dx: Justifications for Admission: Justification of Admission Dx: Yes Sepsis: Altered Mental Status Altered Mental Status: Altered Mental Status MADDISON COLE MD Nov 29, 2020 10:57
[2020-11-29 11:00] VITALS: BP 150/82
--- NOTE | 2020-11-29 11:36 | NUR ---
SW following. Discussed with RN, pt from home with spouse, room air, NPO, tube feeding through NG tube, COVID-19 negative. PT/OT recommending acute rehab. Edu JUÁREZ) coming to see pt today, SW awaiting recommendations. SW will continue to follow.
--- NOTE | 2020-11-29 12:38 | PDOC ---
Renal-Progress Notes Subjective Notes Notes CONFUSED History of Present Illness Hx of present illness NO ACUTE CHANGES Vitals Vitals Vital Signs Date Time Temp Pulse Resp B/P (MAP) Pulse Ox O2 Delivery O2 Flow Rate FiO2 11/29/20 11:00 99.7 103 22 150/82 (104) 94 Room Air 99.7 Weight Weight [ ] I.O. Intake and Output Intake and Output 11/29/20 07:00 Intake Total 900 ml Output Total 1200 ml Balance -300 ml Tube Feeding 900 ml Output Urine Total 1200 ml Stool Total 0 ml # Voids 2 # Bowel Movements 2 Labs Labs Laboratory Tests Test 11/28/20 17:53 11/29/20 00:08 11/29/20 06:18 11/29/20 06:19 Glucose (Fingerstick) 126 mg/dL (70-99) 132 mg/dL (70-99) 126 mg/dL (70-99) White Blood Count 10.3 x10^3/uL (4.0-11.0) Red Blood Count 2.49 x10^6/uL (3.50-5.40) Hemoglobin 7.9 g/dL (12.0-15.5) Hematocrit 24.9 % (36.0-47.0) Mean Corpuscular Volume 100 fL (79-100) Mean Corpuscular Hemoglobin 32 pg (25-35) Mean Corpuscular Hemoglobin Concent 32 g/dL (31-37) Red Cell Distribution Width 25.6 % (11.5-14.5) Platelet Count 96 x10^3/uL (140-400) Neutrophils (%) (Auto) 74 % (31-73) Lymphocytes (%) (Auto) 15 % (24-48) Monocytes (%) (Auto) 9 % (0-9) Eosinophils (%) (Auto) 2 % (0-3) Basophils (%) (Auto) 1 % (0-3) Neutrophils # (Auto) 7.6 x10^3/uL (1.8-7.7) Lymphocytes # (Auto) 1.5 x10^3/uL (1.0-4.8) Monocytes # (Auto) 0.9 x10^3/uL (0.0-1.1) Eosinophils # (Auto) 0.2 x10^3/uL (0.0-0.7) Basophils # (Auto) 0.1 x10^3/uL (0.0-0.2) Sodium Level 142 mmol/L (136-145) Potassium Level 3.0 mmol/L (3.5-5.1) Chloride Level 109 mmol/L (98-107) Carbon Dioxide Level 22 mmol/L (21-32) Anion Gap 11 (6-14) Blood Urea Nitrogen 8 mg/dL (7-20) Creatinine 0.5 mg/dL (0.6-1.0) Estimated GFR (Cockcroft-Gault) 136.0 BUN/Creatinine Ratio 16 (6-20) Glucose Level 122 mg/dL (70-99) Calcium Level 8.0 mg/dL (8.5-10.1) Magnesium Level 1.7 mg/dL (1.8-2.4) Total Bilirubin 5.2 mg/dL (0.2-1.0) Aspartate Amino Transf (AST/SGOT) 138 U/L (15-37) Alanine Aminotransferase (ALT/SGPT) 45 U/L (14-59) Alkaline Phosphatase 100 U/L (46-116) Total Protein 6.4 g/dL (6.4-8.2) Albumin 2.4 g/dL (3.4-5.0) Albumin/Globulin Ratio 0.6 (1.0-1.7) Test 11/29/20 11:58 Glucose (Fingerstick) 137 mg/dL (70-99) Micro Micro Microbiology 11/26/20 Blood Culture - Preliminary, Resulted NO GROWTH AFTER 2 DAYS 11/22/20 Urine Culture - Final, Complete Review of Systems Constitutional: yes: other (UNABLE TO OBTAIN) Physical Exam General Appearance: no apparent distress Skin: warm Respiratory: decreased breath sounds Heart: S1S2 Abdomen: soft, bowel sounds present Genitourinary: bladder flat Neurology: alert, confused, other Assessment Assessment IMP EARL-RESOLVED HYPOMAGNESEMIA HYPERNATREMIA-RESOLVED LOW K LIVER FAILURE ETOH ABUSE ENCEPHALOPATHY SEPSIS PLAN REPLACE MAG AND K ANTIBIOTICS LABS IN JOSE ANGEL SRIVASTAVA MD Nov 29, 2020 12:38
[2020-11-29] MEDS ORDERED: POTASSIUM CHLORIDE 20 MEQ TABLET.ER. PO ONE (13:30)
[2020-11-29] MEDS ORDERED: MAGNESIUM SULFATE 2GM 50 ML IV ONE (13:30)
[2020-11-29 15:00] VITALS: BP 171/92
--- NOTE | 2020-11-29 15:11 | PDOC ---
[employer] PROGRESS NOTE Date of Service DOS: DATE: 11/29/20 TIME: 15:05 Chief Complaint Chief Complaint A/P: Acute hepatic encephalopathy Acute liver failure, likely from alcoholism with hyperbilirubinemia. Improving slowly Acute renal failure. Anemia. Status post PRBC Coagulopathy. Severe Protein-calorie malnutrition. History of gastroesophageal reflux disease, GI bleed, gastritis, pancreatitis, peptic ulcer disease. History of anxiety and depression. Hydropic gallbladder with hepatic steatosis. Sepsis - urine with [place], likely some element of aspiration pneumonitis/pneumonia as well Diarrhea on lactulose UC [place] albicans Pulmonary infiltrates History of Present Illness History of Present Illness Still confused. Seen bedside NG tube and on GT feeds. Able to pass swallow evaluation with FIN[employer]CIAL SERVICES AGENT. Potassium 3 mag 1.7. She still little confused but does recall that she is at [place] upon prompting. 11/28/2020 Patient seen and examined in ICU Spoke with nursing, chart reviewed Patient depressed some 11/27/2020 Patient seen and examined in ICU. She tried to speak more today than she has previously, but not able to understand her very well Spoke to nursing chart reviewed 11/26/2020 Patient seen and examined in ICU. Patient was awake but did not talk. Spoke with Rene, the patient's . She has spoken some words to him. Spoke with RN. NG feeding 40cc/hr. 11/25/2020 Patient seen and examined in ICU Remains extremely encephalopathic Spoke with RN Spoke with patient's on the phone, he is distraught over her condition. Blood pressure still high Fever today of 100.6. 11/24/2020 Patient seen and examined in the ICU She remains extremely encephalopathic Eyes open but does not really make eye contact Discussed with RN Her pressures are running high Have added an IV labetalol and IV Vasotec Prognosis guarded and she is still critically ill 11/23/20 Patient seen and examined in ICU Chart review, discussed with nursing and pillowcase turner Still visibly jaundiced, tried to speak but unable to form words Lab work improving since beginning lactulose and rifaxamin. Bilirubin down. Patient did have new onset wheezing today and spoke to nursing about starting PRN nebulizers. 11/22/20 Patient seen and examined in the ICU Chart reviewed, discussed with nursing and pillowcase turner Still visibly jaundiced, encephalopathic, but eyes open. Anemia - 6.8. WBC count up to 81. PEG not tolerated. GI considering TPN Patient started on lactulose + rifaxamin per GI FFP being considered for coagulopathy. 11/21/20 Patient seen and examined in the ICU Chart reviewed Still visibly jaundiced Respiratory rate improved to around 25 today, was around 30-35 yesterday. Anemia improving; at Hgb of 6.6 today. Ordered 1 unit PRBC this morning. Hypothermia resolved; temp today 98.1 WBC count improved to 6. Patient now on PEG tube. Dex for sedation Octreotide drip IV Protonix Continue rectal bag Wood to BSD in place 11/20/20 Patient seen and examined in the ICU Chart reviewed She is visibly jaundiced Very anemic with HBG at 2.44 Hypothermic today with temp of 97.5 F (04:00), up from 94.4 F yesterday (20:00) White blood cells trending downward from normal, today WBC are 3.7 Dex for sedation Octreotide drip in the room IV Protonix going Continue rectal bag Wood to BSD in place 11/19/20 VERY ANEMIC, HYPOTENSIVE 11-18 MELD score on admit is 40, PROGNOSIS VERY GUARDED ECHO pending, cardiology consulted Stools slightly red per RN NH4 pending IONIZED CA 1.05 VIT D LEVEL pending 11/18/20 VERY ANEMIC, HYPOTENSIVE OVERNIGHT ECHO pending, cardiology consulted NH4 pending ID CONSULT NEUROLOGY CONSULT Gen Surg consult 11/17/20 Ms Phipps is a 40yo F w/ PMHx morbid obesity s/p gastric bypass ini 2008, alcohol use disorder, Anxiety, Depression, Hypertension, IBS, Kidney Stones, Pancreatitis, chronic back pain, and smoker who presented to [facility] ED in [place], [place] via EMS for altered mental status. Her called because patient has been on couch has been increasingly confused over the past 5 days. Per EMS report she had a fall a few days ago when she was intoxicated. EKG appears sinus tachycardia, heart rate [address] elevation or depression, no ectopy. Normal intervals. T waves unremarkable. CT chest abdomen pelvis revealed severe hepatic steatosis and cholelithiasis with hydropic gallbladder and gastric bypass, no other acute findings. CT head with no acute hemorrhage. Labs with WBC 7.5, Hb 6.4, platelets 237, Na 130, K 4.3, BUN 10, Cr 2.3, glucose 72, Trop 0, BNP 939, Albumin 1.8, INR 4.9, ammonia 44, bilirubin 11, AST 2744, ALT 400, Alk phos 172, Lipase 42 Given concern for acute liver failure and acute renal failure patient accepted for transfer to [facility] for specialist consultation. Seen bedside with her , patient following very few commands, otherwise drowsy, not oriented, moaning, not articulating well or making meaningful eye contact. notes that sometimes this might happen for a week at a time at home and frightens their 11 and 17 year old children. He notes "it has been a rough year". She was released from incarceration in federal custodial last October after a DUI and parole violation of intoxication with alcohol that led to her serving 17 months in federal custodial [place]. She has struggled with substance use disorder, specifically alcohol, according to her since her gastric bypass in 2008, has been previously treated for this as well as pancreatitis. Admitted to ICU for further treatment. Due to the inability to maintain a peripheral IV and concern for potential uncontrollable bleeding in the neck a right femoral central venous catheter was placed for medications, blood transfusion and lab draw purposes for frequent lab draws. Vitals/I&O Vitals/I&O: Vital Signs Date Time Temp Pulse Resp B/P (MAP) Pulse Ox O2 Delivery O2 Flow Rate FiO2 11/29/20 11:00 99.7 103 22 150/82 (104) 94 Room Air 99.7 I & O 11/28/20 11/28/20 11/29/20 15:00 23:00 07:00 Intake Total 300 ml 300 ml 300 ml Output Total 0 ml 1200 ml Balance 300 ml -900 ml 300 ml Physical Exam Physical Exam: GENERAL: Awake, lethargic HEENT: PERRL,EOMI, NG tube in place. Oral cavity is dry. NECK: Supple. LUNGS: Clear bilaterally. labored. HEART: S1, S2. No murmurs. Regular. ABDOMEN: Obese, soft, Bowel sounds present, does not grimace on deep palpatio n. + rectal tube : Wood (chg 11/25) EXTREMITIES: Edema present no cyanosis. DERMATOLOGIC: No generalized rash. Multiple tattoos. CENTRAL NERVOUS SYSTEM: Lethargic, muffled speech RUE PICC line (11/20), some bruising present. General: Alert, mild distress Heart: Regular rate Lungs: Clear Abdomen: Soft, Other (obese ) Extremities: No cyanosis Skin: No breakdown, Other (Visibly jaundiced.) Labs Labs: Laboratory Tests Test 11/28/20 17:53 11/29/20 00:08 11/29/20 06:18 11/29/20 06:19 Glucose (Fingerstick) 126 mg/dL (70-99) 132 mg/dL (70-99) 126 mg/dL (70-99) White Blood Count 10.3 x10^3/uL (4.0-11.0) Red Blood Count 2.49 x10^6/uL (3.50-5.40) Hemoglobin 7.9 g/dL (12.0-15.5) Hematocrit 24.9 % (36.0-47.0) Mean Corpuscular Volume 100 fL (79-100) Mean Corpuscular Hemoglobin 32 pg (25-35) Mean Corpuscular Hemoglobin Concent 32 g/dL (31-37) Red Cell Distribution Width 25.6 % (11.5-14.5) Platelet Count 96 x10^3/uL (140-400) Neutrophils (%) (Auto) 74 % (31-73) Lymphocytes (%) (Auto) 15 % (24-48) Monocytes (%) (Auto) 9 % (0-9) Eosinophils (%) (Auto) 2 % (0-3) Basophils (%) (Auto) 1 % (0-3) Neutrophils # (Auto) 7.6 x10^3/uL (1.8-7.7) Lymphocytes # (Auto) 1.5 x10^3/uL (1.0-4.8) Monocytes # (Auto) 0.9 x10^3/uL (0.0-1.1) Eosinophils # (Auto) 0.2 x10^3/uL (0.0-0.7) Basophils # (Auto) 0.1 x10^3/uL (0.0-0.2) Sodium Level 142 mmol/L (136-145) Potassium Level 3.0 mmol/L (3.5-5.1) Chloride Level 109 mmol/L (98-107) Carbon Dioxide Level 22 mmol/L (21-32) Anion Gap 11 (6-14) Blood Urea Nitrogen 8 mg/dL (7-20) Creatinine 0.5 mg/dL (0.6-1.0) Estimated GFR (Cockcroft-Gault) 136.0 BUN/Creatinine Ratio 16 (6-20) Glucose Level 122 mg/dL (70-99) Calcium Level 8.0 mg/dL (8.5-10.1) Magnesium Level 1.7 mg/dL (1.8-2.4) Total Bilirubin 5.2 mg/dL (0.2-1.0) Aspartate Amino Transf (AST/SGOT) 138 U/L (15-37) Alanine Aminotransferase (ALT/SGPT) 45 U/L (14-59) Alkaline Phosphatase 100 U/L (46-116) Total Protein 6.4 g/dL (6.4-8.2) Albumin 2.4 g/dL (3.4-5.0) Albumin/Globulin Ratio 0.6 (1.0-1.7) Test 11/29/20 11:58 Glucose (Fingerstick) 137 mg/dL (70-99) Comment Review of Relevant I have reviewed the following items josue (where applicable) has been applied. Medications: Current Medications Medications (Trade) Dose Ordered Sig/Saud Route PRN Reason Start Time Stop Time Status Last Admin Dose Admin Fluoxetine HCl (PROzac) 20 mg BID PEG 11/28/20 21:00 11/29/20 09:40 Magnesium Sulfate 50 ml @ 25 mls/hr 1X ONCE IV 11/28/20 16:00 11/28/20 17:59 DC 11/28/20 16:07 Thiamine Mononitrate (Vitamin B-1) 100 mg DAILY PEG 11/29/20 09:00 11/29/20 09:39 Folic Acid (Folic Acid) 1 mg DAILY PEG 11/29/20 09:00 11/29/20 09:40 Multivitamins/ Minerals Therapeutic (Centrum Multivit-Mineral Liq) 5 ml DAILY PEG 11/29/20 09:00 11/29/20 09:40 Potassium Chloride (Klor-Con) 40 meq 1X ONCE PO 11/29/20 13:30 11/29/20 13:31 DC 11/29/20 13:56 Magnesium Sulfate 50 ml @ 25 mls/hr 1X ONCE IV 11/29/20 13:30 11/29/20 15:29 11/29/20 13:56 Justifications for Admission General Conditions Poss tachycardia?: Yes Justification for admission: Patient has tachycardia (> 100 beats per minute) which is not readily corrected by appropriate treatment within 12 to 24 hours. Poss Metaboilic Acidosis?: Yes Justification for admission: Patient has tachycardia (> 100 beats per minute) or hypotension (SBP < 90 mm Hg) leading to inadequate systemic perfusion as indicated by metabolic acidosis with arterial pH of less than 7.35. Altered mental status?: Yes Justification of admission: Patient has tachycardia (> 100 beats per minute) or hypotension (SBP < 90 mm Hg) leading to inadequate systemic perfusion as indicated by severe/persistent altered mental status. Other Justification RELL MCDANIEL MD Nov 29, 2020 15:11
[2020-11-29 19:00] VITALS: BP 167/96
[2020-11-29] MEDS: AMOXICILLIN/K CLAV 875/125MG TABLET. PO SCH (21:01)
[2020-11-29 22:59] VITALS: BP 173/76
[2020-11-30 03:00] VITALS: BP 162/93
[2020-11-30] MEDS: fentaNYL PF VIAL 100 MCG/2 ML VIAL IV PRN (03:37)
[2020-11-30] MEDS: INSULIN LISPRO 300 UNITS/3 ML VIAL. SQ SCH ×5 (06:00→21:00)
[2020-11-30 06:35] LABS: BASO % 1 % (0-3); EOS # 0.2 x10^3/uL (0.0-0.7); EOS % 3 % (0-3); HEMATOCRIT 22.6 % (36.0-47.0); HEMOGLOBIN 7.1 g/dL (12.0-15.5); LYMPH # 1.1 x10^3/uL (1.0-4.8); LYMPH % 13 % (24-48); MEAN CORPUSCULAR HEMOGLOBIN 31 pg (25-35); MEAN CORPUSCULAR HGB CONC 31 g/dL (31-37); MEAN CORPUSCULAR VOLUME 100 fL (79-100); MONO # 0.5 x10^3/uL (0.0-1.1); MONO % 7 % (0-9); NEUT # 6.2 x10^3/uL (1.8-7.7); NEUT % 77 % (31-73); PLATELET COUNT 97 x10^3/uL (140-400); RED BLOOD COUNT 2.26 x10^6/uL (3.50-5.40); RED CELL DISTRIBUTION WIDTH 26.3 % (11.5-14.5)
[2020-11-30 06:39] LABS: ALBUMIN/GLOBULIN RATIO 0.5 (1.0-1.7); CREATININE 0.3 mg/dL (0.6-1.0); GFR 245.2; MAGNESIUM 1.6 mg/dL (1.8-2.4); PHOSPHORUS 2.6 mg/dL (2.6-4.7); POTASSIUM 3.3 mmol/L (3.5-5.1); TOTAL BILIRUBIN 4.8 mg/dL (0.2-1.0); TOTAL PROTEIN 5.7 g/dL (6.4-8.2)
[2020-11-30 07:00] VITALS: BP 164/90
[2020-11-30] MEDS: MAGNESIUM SULFATE 2GM 50 ML IV PRN (07:21)
--- NOTE | 2020-11-30 08:20 | PDOC ---
Infectious Disease Note Subjective: Subjective Patient more alert Afebrile last 24 hours On RA Vital Signs: Vital Signs Vital Signs Date Time Temp Pulse Resp B/P (MAP) Pulse Ox O2 Delivery O2 Flow Rate FiO2 11/30/20 04:15 95 Room Air 11/30/20 03:00 98.3 100 20 162/93 (116) 2.0 98.3 Physical Exam: PHYSICAL EXAM GENERAL: Awake, lethargic HEENT: PERRL,EOMI, NG tube in place. Oral cavity is dry. NECK: Supple. LUNGS: Clear bilaterally. labored. HEART: S1, S2. No murmurs. Regular. ABDOMEN: Obese, soft, Bowel sounds present, does not grimace on deep palpation. + rectal tube : Wood (chg 11/25) EXTREMITIES: Edema present no cyanosis. DERMATOLOGIC: No generalized rash. Multiple tattoos. CENTRAL NERVOUS SYSTEM: Lethargic, muffled speech RUE PICC line (11/20), some bruising present. Medications: Inpatient Meds: Medications reviewed. Labs: Lab Laboratory Tests Test 11/29/20 11:58 11/29/20 17:56 11/30/20 00:23 11/30/20 06:14 Glucose (Fingerstick) 137 mg/dL (70-99) 141 mg/dL (70-99) 115 mg/dL (70-99) 101 mg/dL (70-99) Test 11/30/20 06:15 White Blood Count 8.0 x10^3/uL (4.0-11.0) Red Blood Count 2.26 x10^6/uL (3.50-5.40) Hemoglobin 7.1 g/dL (12.0-15.5) Hematocrit 22.6 % (36.0-47.0) Mean Corpuscular Volume 100 fL (79-100) Mean Corpuscular Hemoglobin 31 pg (25-35) Mean Corpuscular Hemoglobin Concent 31 g/dL (31-37) Red Cell Distribution Width 26.3 % (11.5-14.5) Platelet Count 97 x10^3/uL (140-400) Neutrophils (%) (Auto) 77 % (31-73) Lymphocytes (%) (Auto) 13 % (24-48) Monocytes (%) (Auto) 7 % (0-9) Eosinophils (%) (Auto) 3 % (0-3) Basophils (%) (Auto) 1 % (0-3) Neutrophils # (Auto) 6.2 x10^3/uL (1.8-7.7) Lymphocytes # (Auto) 1.1 x10^3/uL (1.0-4.8) Monocytes # (Auto) 0.5 x10^3/uL (0.0-1.1) Eosinophils # (Auto) 0.2 x10^3/uL (0.0-0.7) Basophils # (Auto) 0.0 x10^3/uL (0.0-0.2) Sodium Level 141 mmol/L (136-145) Potassium Level 3.3 mmol/L (3.5-5.1) Chloride Level 109 mmol/L (98-107) Carbon Dioxide Level 26 mmol/L (21-32) Anion Gap 6 (6-14) Blood Urea Nitrogen 5 mg/dL (7-20) Creatinine 0.3 mg/dL (0.6-1.0) Estimated GFR (Cockcroft-Gault) 245.2 BUN/Creatinine Ratio 17 (6-20) Glucose Level 98 mg/dL (70-99) Calcium Level 8.0 mg/dL (8.5-10.1) Phosphorus Level 2.6 mg/dL (2.6-4.7) Magnesium Level 1.6 mg/dL (1.8-2.4) Total Bilirubin 4.8 mg/dL (0.2-1.0) Aspartate Amino Transf (AST/SGOT) 120 U/L (15-37) Alanine Aminotransferase (ALT/SGPT) 36 U/L (14-59) Alkaline Phosphatase 86 U/L (46-116) Total Protein 5.7 g/dL (6.4-8.2) Albumin 2.0 g/dL (3.4-5.0) Albumin/Globulin Ratio 0.5 (1.0-1.7) Objective: Assessment: Sepsis Fever Portosystemic encephalopathy Acute liver failure, likely from alcoholism with hyperbilirubinemia. Improving slowly Acute renal failure. Anemia. Status post PRBC Coagulopathy. Protein-calorie malnutrition. History of gastroesophageal reflux disease, GI bleed, gastritis, pancreatitis, peptic ulcer disease. History of anxiety and depression. Hydropic gallbladder with hepatic steatosis. Femoral line removed Diarrhea on lactulose UC [place] albicans Pulm infiltrates Plan: Plan of Care augmentin for 5 days Maintain aspiration precaution. D/w nursing DAGMAR MALCOLM MD Nov 30, 2020 08:20
[2020-11-30] MEDS: AMOXICILLIN/K CLAV 875/125MG TABLET. PO SCH ×2 (08:31→21:17)
[2020-11-30] MEDS: rifAXIMin 550 MG TABLET PO SCH ×2 (08:31→21:17)
[2020-11-30] MEDS: FOLIC ACID 1 MG TABLET. PEG SCH (08:32)
[2020-11-30] MEDS: PANTOPRAZOLE IV PUSH 40 MG VIAL. IVP SCH (08:32)
[2020-11-30] MEDS: MULTIVITAMINS,THERAPEUTIC 5 ML ORAL LIQUID. PEG SCH (08:32)
[2020-11-30] MEDS: THIAMINE 100 MG TABLET. PEG SCH (08:32)
[2020-11-30] MEDS: amLODIPine BESYLATE 10 MG TABLET PO SCH (08:36)
[2020-11-30 11:00] VITALS: BP 142/85
[2020-11-30] MEDS ORDERED: LACTULOSE 20 GM/30 ML SOLUTION. PO PRN (11:30)
--- NOTE | 2020-11-30 11:31 | PDOC ---
Date of Service: DATE: 11/30/20 TIME: 11:23 Objective: Objective: D/w Dr. Jean yesterday - okay w/ GI to remove NGT and start diet. 3 stools charted today. D/w nurse - is difficult to rouse but makes sense when she finally wakes up. Not much appetite - had juice and applesauce, pulled NG herself last night. Small stools. Vital Signs: Vital Signs Date Time Temp Pulse Resp B/P (MAP) Pulse Ox O2 Delivery O2 Flow Rate FiO2 11/30/20 08:36 98 164/90 11/30/20 08:18 Room Air 11/30/20 07:00 98.5 20 94 98.5 11/30/20 03:00 2.0 Labs: Laboratory Tests Test 11/29/20 11:58 11/29/20 17:56 11/30/20 00:23 11/30/20 06:14 Glucose (Fingerstick) 137 mg/dL (70-99) 141 mg/dL (70-99) 115 mg/dL (70-99) 101 mg/dL (70-99) Imaging: [employer] Bedside Swallow Eval Bedside swallow eval completed. Although pt remains confused, at time of eval she was awake. See full rpt in interventions section. IMPRESSIONS: Functional swallow for modified diet. Pt w/conflicting report of having dentures but wearing vs not wearing them to eat. Dentures not w/her in hospital. Mental status currently not adequate for solids. Puree and thin liquids appear safe when sitting up at 90*. Swallow is safe and efficient enough to meet nutritional needs. May require supplemental non-oral nutrition short-term as it is unclear if pt will be willing to take modified diet. Dietitian consult placed re: nutrition given hx of gastric bypass. If supplemental oral nutrition is indicated, liquid would be most efficient form. RECOMMENDATIONS: Dysphagia I w/thin liquids. 100% assist w/feeding at this time. Precautions as posted. Sit up at 90* for all po intake. Meds crushed in puree. MANDI Hilario. Orders entered. PE: GEN: chronically ill LUNGS: CTAB HEART: RRR ABD: soft, non-tender NEURO/PSYCH: lethargic today - briefly opens eyes A/P: Alcoholic liver disease Diarrhea - better Hypokalemia, hypomagnesemia -- Continue Xifaxan. Adjust lactulose as needed. Encourage PO. Justicifation of Admission Dx: Justifications for Admission: Justification of Admission Dx: Yes Sepsis: Altered Mental Status Altered Mental Status: Altered Mental Status CHAVA DUKE Nov 30, 2020 11:31
--- NOTE | 2020-11-30 11:50 | PDOC ---
[employer] PROGRESS NOTE Date of Service DOS: DATE: 11/30/20 TIME: 11:50 Chief Complaint Chief Complaint A/P: Acute hepatic encephalopathy Acute liver failure, likely from alcoholism with hyperbilirubinemia. Improving slowly Acute renal failure. Anemia. Status post PRBC Coagulopathy. Severe Protein-calorie malnutrition. History of gastroesophageal reflux disease, GI bleed, gastritis, pancreatitis, peptic ulcer disease. History of anxiety and depression. Hydropic gallbladder with hepatic steatosis. Sepsis - urine with [place], likely some element of aspiration pneumonitis/pneumonia as well Diarrhea on lactulose UC [place] albicans Pulmonary infiltrates History of Present Illness History of Present Illness Less confused today. Her father is visiting. She pulled her NG tube out overnight but she did eat breakfast. Electrolyte replaced by nephrology. Hemoglobin 7.1 today. Long discussion with alcohol cessation undertaken. She wants to stop drinking vodka has been alcohol rehab twice. 11/29: Still confused. Seen bedside NG tube and on GT feeds. Able to pass swallow evaluation with [employer]. Potassium 3 mag 1.7. She still little confused but does recall that she is at [facility] upon prompting. 11/28/2020 Patient seen and examined in ICU Spoke with nursing, chart reviewed Patient depressed some 11/27/2020 Patient seen and examined in ICU. She tried to speak more today than she has previously, but not able to understand her very well Spoke to nursing chart reviewed 11/26/2020 Patient seen and examined in ICU. Patient was awake but did not talk. Spoke with Rene, the patient's . She has spoken some words to him. Spoke with RN. NG feeding 40cc/hr. 11/25/2020 Patient seen and examined in ICU Remains extremely encephalopathic Spoke with RN Spoke with patient's on the phone, he is distraught over her condition. Blood pressure still high Fever today of 100.6. 11/24/2020 Patient seen and examined in the ICU She remains extremely encephalopathic Eyes open but does not really make eye contact Discussed with RN Her pressures are running high Have added an IV labetalol and IV Vasotec Prognosis guarded and she is still critically ill 11/23/20 Patient seen and examined in ICU Chart review, discussed with nursing and continuous pillowcase cutter Still visibly jaundiced, tried to speak but unable to form words Lab work improving since beginning lactulose and rifaxamin. Bilirubin down. Patient did have new onset wheezing today and spoke to nursing about starting PRN nebulizers. 11/22/20 Patient seen and examined in the ICU Chart reviewed, discussed with nursing and continuous pillowcase cutter Still visibly jaundiced, encephalopathic, but eyes open. Anemia - 6.8. WBC count up to 81. PEG not tolerated. GI considering TPN Patient started on lactulose + rifaxamin per GI FFP being considered for coagulopathy. 11/21/20 Patient seen and examined in the ICU Chart reviewed Still visibly jaundiced Respiratory rate improved to around 25 today, was around 30-35 yesterday. Anemia improving; at Hgb of 6.6 today. Ordered 1 unit PRBC this morning. Hypothermia resolved; temp today 98.1 WBC count improved to 6. Patient now on PEG tube. Dex for sedation Octreotide drip IV Protonix Continue rectal bag Wood to BSD in place 11/20/20 Patient seen and examined in the ICU Chart reviewed She is visibly jaundiced Very anemic with HBG at 2.44 Hypothermic today with temp of 97.5 F (04:00), up from 94.4 F yesterday (20:00) White blood cells trending downward from normal, today WBC are 3.7 Dex for sedation Octreotide drip in the room IV Protonix going Continue rectal bag Wood to BSD in place 11/19/20 VERY ANEMIC, HYPOTENSIVE - MELD score on admit is 40, PROGNOSIS VERY GUARDED ECHO pending, cardiology consulted Stools slightly red per RN NH4 pending IONIZED CA 1.05 VIT D LEVEL pending 11/18/20 VERY ANEMIC, HYPOTENSIVE OVERNIGHT ECHO pending, cardiology consulted NH4 pending ID CONSULT NEUROLOGY CONSULT Gen Surg consult 11/17/20 Ms Phipps is a 40yo F w/ PMHx morbid obesity s/p gastric bypass ini 2008, alcohol use disorder, Anxiety, Depression, Hypertension, IBS, Kidney Stones, Pancreatitis, chronic back pain, and smoker who presented to [facility] ED in [place], [place] via EMS for altered mental status. Her called because patient has been on couch has been increasingly confused over the past 5 days. Per EMS report she had a fall a few days ago when she was intoxicated. EKG appears sinus tachycardia, heart rate [address] elevation or depression, no ectopy. Normal intervals. T waves unremarkable. CT chest abdomen pelvis revealed severe hepatic steatosis and cholelithiasis with hydropic gallbladder and gastric bypass, no other acute findings. CT head with no acute hemorrhage. Labs with WBC 7.5, Hb 6.4, platelets 237, Na 130, K 4.3, BUN 10, Cr 2.3, glucose 72, Trop 0, BNP 939, Albumin 1.8, INR 4.9, ammonia 44, bilirubin 11, AST 2744, ALT 400, Alk phos 172, Lipase 42 Given concern for acute liver failure and acute renal failure [facility] Seen bedside with her , patient following very few commands, otherwise drowsy, not oriented, moaning, not articulating well or making meaningful eye contact. notes that sometimes this might happen for a week at a time at home and frightens their 11 and 17 year old children. He notes "it has been a rough year". She was released [place] last October after a DUI and parole violation of intoxication with alcohol that led to her serving 17 months [place]. She has struggled with substance use disorder, specifically alcohol, according to her since her gastric bypass in 2008, has been previously treated for this as well as pancreatitis. Admitted to ICU for further treatment. Due to the inability to maintain a peripheral IV and concern for potential uncontrollable bleeding in the neck a right femoral central venous catheter was placed for medications, blood transfusion and lab draw purposes for frequent lab draws. Vitals/I&O Vitals/I&O: Vital Signs Date Time Temp Pulse Resp B/P (MAP) Pulse Ox O2 Delivery O2 Flow Rate FiO2 11/30/20 08:36 98 164/90 11/30/20 08:18 Room Air 11/30/20 07:00 98.5 20 94 98.5 11/30/20 03:00 2.0 I & O 11/29/20 11/29/20 11/30/20 15:00 23:00 07:00 Intake Total 510 ml 200 ml 0 ml Output Total 1100 ml 1300 ml Balance 510 ml -900 ml -1300 ml Physical Exam Physical Exam: GENERAL: Awake, lethargic HEENT: PERRL,EOMI, NG tube in place. Oral cavity is dry. NECK: Supple. LUNGS: Clear bilaterally. labored. HEART: S1, S2. No murmurs. Regular. ABDOMEN: Obese, soft, Bowel sounds present, does not grimace on deep palpation. + rectal tube : Wood (ch 11/25) EXTREMITIES: Edema present no cyanosis. DERMATOLOGIC: No generalized rash. Multiple tattoos. CENTRAL NERVOUS SYSTEM: Lethargic, muffled speech RUE PICC line (11/20), some bruising present. General: Alert, mild distress Heart: Regular rate Lungs: Clear Abdomen: Soft, Other (obese ) Extremities: No cyanosis Skin: No breakdown, Other (Visibly jaundiced.) Labs Labs: Laboratory Tests Test 11/29/20 11:58 11/29/20 17:56 11/30/20 00:23 11/30/20 06:14 Glucose (Fingerstick) 137 mg/dL (70-99) 141 mg/dL (70-99) 115 mg/dL (70-99) 101 mg/dL (70-99) Test 11/30/20 06:15 11/30/20 11:47 White Blood Count 8.0 x10^3/uL (4.0-11.0) Red Blood Count 2.26 x10^6/uL (3.50-5.40) Hemoglobin 7.1 g/dL (12.0-15.5) Hematocrit 22.6 % (36.0-47.0) Mean Corpuscular Volume 100 fL (79-100) Mean Corpuscular Hemoglobin 31 pg (25-35) Mean Corpuscular Hemoglobin Concent 31 g/dL (31-37) Red Cell Distribution Width 26.3 % (11.5-14.5) Platelet Count 97 x10^3/uL (140-400) Neutrophils (%) (Auto) 77 % (31-73) Lymphocytes (%) (Auto) 13 % (24-48) Monocytes (%) (Auto) 7 % (0-9) Eosinophils (%) (Auto) 3 % (0-3) Basophils (%) (Auto) 1 % (0-3) Neutrophils # (Auto) 6.2 x10^3/uL (1.8-7.7) Lymphocytes # (Auto) 1.1 x10^3/uL (1.0-4.8) Monocytes # (Auto) 0.5 x10^3/uL (0.0-1.1) Eosinophils # (Auto) 0.2 x10^3/uL (0.0-0.7) Basophils # (Auto) 0.0 x10^3/uL (0.0-0.2) Sodium Level 141 mmol/L (136-145) Potassium Level 3.3 mmol/L (3.5-5.1) Chloride Level 109 mmol/L (98-107) Carbon Dioxide Level 26 mmol/L (21-32) Anion Gap 6 (6-14) Blood Urea Nitrogen 5 mg/dL (7-20) Creatinine 0.3 mg/dL (0.6-1.0) Estimated GFR (Cockcroft-Gault) 245.2 BUN/Creatinine Ratio 17 (6-20) Glucose Level 98 mg/dL (70-99) Calcium Level 8.0 mg/dL (8.5-10.1) Phosphorus Level 2.6 mg/dL (2.6-4.7) Magnesium Level 1.6 mg/dL (1.8-2.4) Total Bilirubin 4.8 mg/dL (0.2-1.0) Aspartate Amino Transf (AST/SGOT) 120 U/L (15-37) Alanine Aminotransferase (ALT/SGPT) 36 U/L (14-59) Alkaline Phosphatase 86 U/L (46-116) Total Protein 5.7 g/dL (6.4-8.2) Albumin 2.0 g/dL (3.4-5.0) Albumin/Globulin Ratio 0.5 (1.0-1.7) Glucose (Fingerstick) 122 mg/dL (70-99) Comment Review of Relevant I have reviewed the following items josue (where applicable) has been applied. Medications: Current Medications Medications (Trade) Dose Ordered Sig/Saud Route PRN Reason Start Time Stop Time Status Last Admin Dose Admin Amoxicillin/ Clavulanate Potassium (Augmentin 875/ 125mg) 1 tab BID PO 11/29/20 21:00 11/30/20 08:31 Potassium Chloride (Klor-Con) 40 meq 1X ONCE PO 11/29/20 13:30 11/29/20 13:31 DC 11/29/20 13:56 Magnesium Sulfate 50 ml @ 25 mls/hr 1X ONCE IV 11/29/20 13:30 11/29/20 15:29 DC 11/29/20 13:56 Justifications for Admission General Conditions Poss tachycardia?: Yes Justification for admission: Patient has tachycardia (> 100 beats per minute) which is not readily corrected by appropriate treatment within 12 to 24 hours. Poss Metaboilic Acidosis?: Yes Justification for admission: Patient has tachycardia (> 100 beats per minute) or hypotension (SBP < 90 mm Hg) leading to inadequate systemic perfusion as indicated by metabolic acidosis with arterial pH of less than 7.35. Altered mental status?: Yes Justification of admission: Patient has tachycardia (> 100 beats per minute) or hypotension (SBP < 90 mm Hg) leading to inadequate systemic perfusion as indicated by severe/persistent altered mental status. Other Justification RELL MCDANIEL MD Nov 30, 2020 11:50
[2020-11-30] MEDS ORDERED: DEXTROSE 50% 25 GM / 50ML DISP.SYRIN. IV PRN (12:00)
--- NOTE | 2020-11-30 12:14 | PDOC ---
Renal-Progress Notes Subjective Notes Notes CONFUSED History of Present Illness Hx of present illness STABLE Vitals Vitals Vital Signs Date Time Temp Pulse Resp B/P (MAP) Pulse Ox O2 Delivery O2 Flow Rate FiO2 11/30/20 08:36 98 164/90 11/30/20 08:18 Room Air 11/30/20 07:00 98.5 20 94 98.5 11/30/20 03:00 2.0 Weight Weight [ ] I.O. Intake and Output Intake and Output 11/30/20 07:00 Intake Total 710 ml Output Total 2400 ml Balance -1690 ml Intake Oral 0 ml IV Total 150 ml Tube Feeding 560 ml Output Urine Total 2400 ml # Bowel Movements 3 Labs Labs Laboratory Tests Test 11/29/20 17:56 11/30/20 00:23 11/30/20 06:14 11/30/20 06:15 Glucose (Fingerstick) 141 mg/dL (70-99) 115 mg/dL (70-99) 101 mg/dL (70-99) White Blood Count 8.0 x10^3/uL (4.0-11.0) Red Blood Count 2.26 x10^6/uL (3.50-5.40) Hemoglobin 7.1 g/dL (12.0-15.5) Hematocrit 22.6 % (36.0-47.0) Mean Corpuscular Volume 100 fL (79-100) Mean Corpuscular Hemoglobin 31 pg (25-35) Mean Corpuscular Hemoglobin Concent 31 g/dL (31-37) Red Cell Distribution Width 26.3 % (11.5-14.5) Platelet Count 97 x10^3/uL (140-400) Neutrophils (%) (Auto) 77 % (31-73) Lymphocytes (%) (Auto) 13 % (24-48) Monocytes (%) (Auto) 7 % (0-9) Eosinophils (%) (Auto) 3 % (0-3) Basophils (%) (Auto) 1 % (0-3) Neutrophils # (Auto) 6.2 x10^3/uL (1.8-7.7) Lymphocytes # (Auto) 1.1 x10^3/uL (1.0-4.8) Monocytes # (Auto) 0.5 x10^3/uL (0.0-1.1) Eosinophils # (Auto) 0.2 x10^3/uL (0.0-0.7) Basophils # (Auto) 0.0 x10^3/uL (0.0-0.2) Sodium Level 141 mmol/L (136-145) Potassium Level 3.3 mmol/L (3.5-5.1) Chloride Level 109 mmol/L (98-107) Carbon Dioxide Level 26 mmol/L (21-32) Anion Gap 6 (6-14) Blood Urea Nitrogen 5 mg/dL (7-20) Creatinine 0.3 mg/dL (0.6-1.0) Estimated GFR (Cockcroft-Gault) 245.2 BUN/Creatinine Ratio 17 (6-20) Glucose Level 98 mg/dL (70-99) Calcium Level 8.0 mg/dL (8.5-10.1) Phosphorus Level 2.6 mg/dL (2.6-4.7) Magnesium Level 1.6 mg/dL (1.8-2.4) Total Bilirubin 4.8 mg/dL (0.2-1.0) Aspartate Amino Transf (AST/SGOT) 120 U/L (15-37) Alanine Aminotransferase (ALT/SGPT) 36 U/L (14-59) Alkaline Phosphatase 86 U/L (46-116) Total Protein 5.7 g/dL (6.4-8.2) Albumin 2.0 g/dL (3.4-5.0) Albumin/Globulin Ratio 0.5 (1.0-1.7) Test 11/30/20 11:47 Glucose (Fingerstick) 122 mg/dL (70-99) Micro Micro Microbiology 11/26/20 Blood Culture - Preliminary, Resulted NO GROWTH AFTER 3 DAYS 11/22/20 Urine Culture - Final, Complete Review of Systems Constitutional: yes: other (UNABLE TO OBTAIN) Physical Exam General Appearance: no apparent distress Skin: warm Respiratory: decreased breath sounds Heart: S1S2 Abdomen: soft, bowel sounds present Genitourinary: bladder flat Neurology: alert, confused, other Assessment Assessment IMP EARL-RESOLVED HYPOMAGNESEMIA HYPERNATREMIA-RESOLVED LOW K LIVER FAILURE ETOH ABUSE ENCEPHALOPATHY SEPSIS PLAN REPLACE MAG AND K AGAIN TODAY ANTIBIOTICS LABS IN AM JOSE ANGEL HA MD Nov 30, 2020 12:14
[2020-11-30] MEDS: POTASSIUM CHLORIDE 20 MEQ TABLET.ER. PO SCH (12:43)
[2020-11-30] MEDS ORDERED: MAGNESIUM SULFATE 2GM 50 ML IV ONE (13:00)
[2020-11-30 15:00] VITALS: BP 147/82
[2020-11-30 19:00] VITALS: BP 164/93
[2020-11-30] MEDS: FLUoxetine HCL 20 MG CAPSULE PO SCH (21:17)
[2020-11-30] MEDS: IBUPROFEN 200 MG TABLET. PO PRN (21:17)
[2020-11-30 23:00] VITALS: BP 165/92
[2020-12-01 03:00] VITALS: BP 172/97
[2020-12-01] MEDS: IBUPROFEN 200 MG TABLET. PO PRN ×3 (05:32→17:49)
[2020-12-01 05:37] LABS: BASO % 1 % (0-3); EOS # 0.2 x10^3/uL (0.0-0.7); EOS % 3 % (0-3); HEMATOCRIT 23.7 % (36.0-47.0); HEMOGLOBIN 7.6 g/dL (12.0-15.5); LYMPH # 1.2 x10^3/uL (1.0-4.8); LYMPH % 20 % (24-48); MEAN CORPUSCULAR HEMOGLOBIN 32 pg (25-35); MEAN CORPUSCULAR HGB CONC 32 g/dL (31-37); MEAN CORPUSCULAR VOLUME 101 fL (79-100); MONO # 0.5 x10^3/uL (0.0-1.1); MONO % 8 % (0-9); NEUT # 4.1 x10^3/uL (1.8-7.7); NEUT % 68 % (31-73); PLATELET COUNT 104 x10^3/uL (140-400); RED BLOOD COUNT 2.36 x10^6/uL (3.50-5.40); RED CELL DISTRIBUTION WIDTH 27.3 % (11.5-14.5)
[2020-12-01 05:45] LABS: ALBUMIN 1.9 g/dL (3.4-5.0); ALBUMIN/GLOBULIN RATIO 0.5 (1.0-1.7); CALCIUM 7.8 mg/dL (8.5-10.1); CREATININE 0.3 mg/dL (0.6-1.0); GFR 245.2; POTASSIUM 3.4 mmol/L (3.5-5.1); TOTAL BILIRUBIN 4.3 mg/dL (0.2-1.0); TOTAL PROTEIN 5.6 g/dL (6.4-8.2)
[2020-12-01 07:00] VITALS: BP 171/92
[2020-12-01] MEDS: INSULIN LISPRO 300 UNITS/3 ML VIAL. SQ SCH ×4 (07:30→21:00)
[2020-12-01] MEDS: rifAXIMin 550 MG TABLET PO SCH ×2 (08:42→21:29)
[2020-12-01] MEDS: AMOXICILLIN/K CLAV 875/125MG TABLET. PO SCH ×2 (08:42→21:29)
[2020-12-01] MEDS: FOLIC ACID 1 MG TABLET. PEG SCH (08:43)
[2020-12-01] MEDS: MULTIVITAMINS,THERAPEUTIC 5 ML ORAL LIQUID. PEG SCH (08:43)
[2020-12-01] MEDS: POTASSIUM CHLORIDE 20 MEQ TABLET.ER. PO SCH (08:43)
[2020-12-01] MEDS: FLUoxetine HCL 20 MG CAPSULE PO SCH ×2 (08:43→21:29)
[2020-12-01] MEDS: THIAMINE 100 MG TABLET. PEG SCH (08:43)
[2020-12-01] MEDS: amLODIPine BESYLATE 10 MG TABLET PO SCH (08:43)
[2020-12-01] MEDS: PANTOPRAZOLE 40 MG TABLET.DR. PO SCH (08:44)
[2020-12-01] MEDS: LABETALOL 20 MG/4 ML DISP.SYRIN. IVP PRN (08:46)
--- NOTE | 2020-12-01 10:30 | PDOC ---
Infectious Disease Note Subjective: Subjective Pt without complaints Vital Signs: Vital Signs Vital Signs Date Time Temp Pulse Resp B/P (MAP) Pulse Ox O2 Delivery O2 Flow Rate FiO2 12/01/20 08:46 97 171/92 12/01/20 07:00 98.9 16 97 Room Air 98.9 12/01/20 03:00 2.0 Physical Exam: PHYSICAL EXAM GENERAL: Awake ,more alert HEENT: PERRL,EOMI Oral cavity is dry. NECK: Supple. LUNGS: Clear bilaterally. labored. HEART: S1, S2. No murmurs. Regular. ABDOMEN: Obese, soft, Bowel sounds presen EXTREMITIES: Edema present no cyanosis. DERMATOLOGIC: No generalized rash. Multiple tattoos. CENTRAL NERVOUS SYSTEM: more alert RUE PICC line (11/20), some bruising present. Medications: Inpatient Meds: Medications reviewed. Labs: Lab Laboratory Tests Test 11/30/20 11:47 11/30/20 16:48 11/30/20 20:30 12/01/20 05:25 Glucose (Fingerstick) 122 mg/dL (70-99) 103 mg/dL (70-99) 91 mg/dL (70-99) White Blood Count 6.0 x10^3/uL (4.0-11.0) Red Blood Count 2.36 x10^6/uL (3.50-5.40) Hemoglobin 7.6 g/dL (12.0-15.5) Hematocrit 23.7 % (36.0-47.0) Mean Corpuscular Volume 101 fL (79-100) Mean Corpuscular Hemoglobin 32 pg (25-35) Mean Corpuscular Hemoglobin Concent 32 g/dL (31-37) Red Cell Distribution Width 27.3 % (11.5-14.5) Platelet Count 104 x10^3/uL (140-400) Neutrophils (%) (Auto) 68 % (31-73) Lymphocytes (%) (Auto) 20 % (24-48) Monocytes (%) (Auto) 8 % (0-9) Eosinophils (%) (Auto) 3 % (0-3) Basophils (%) (Auto) 1 % (0-3) Neutrophils # (Auto) 4.1 x10^3/uL (1.8-7.7) Lymphocytes # (Auto) 1.2 x10^3/uL (1.0-4.8) Monocytes # (Auto) 0.5 x10^3/uL (0.0-1.1) Eosinophils # (Auto) 0.2 x10^3/uL (0.0-0.7) Basophils # (Auto) 0.0 x10^3/uL (0.0-0.2) Sodium Level 140 mmol/L (136-145) Potassium Level 3.4 mmol/L (3.5-5.1) Chloride Level 108 mmol/L (98-107) Carbon Dioxide Level 24 mmol/L (21-32) Anion Gap 8 (6-14) Blood Urea Nitrogen 6 mg/dL (7-20) Creatinine 0.3 mg/dL (0.6-1.0) Estimated GFR (Cockcroft-Gault) 245.2 BUN/Creatinine Ratio 20 (6-20) Glucose Level 88 mg/dL (70-99) Calcium Level 7.8 mg/dL (8.5-10.1) Total Bilirubin 4.3 mg/dL (0.2-1.0) Aspartate Amino Transf (AST/SGOT) 127 U/L (15-37) Alanine Aminotransferase (ALT/SGPT) 35 U/L (14-59) Alkaline Phosphatase 88 U/L (46-116) Total Protein 5.6 g/dL (6.4-8.2) Albumin 1.9 g/dL (3.4-5.0) Albumin/Globulin Ratio 0.5 (1.0-1.7) Test 12/01/20 07:25 Glucose (Fingerstick) 100 mg/dL (70-99) Objective: Assessment: Sepsis Fever Portosystemic encephalopathy Acute liver failure, likely from alcoholism with hyperbilirubinemia. Improving slowly Acute renal failure. Anemia. Status post PRBC Coagulopathy. Protein-calorie malnutrition. History of gastroesophageal reflux disease, GI bleed, gastritis, pancreatitis, peptic ulcer disease. History of anxiety and depression. Hydropic gallbladder with hepatic steatosis. Femoral line removed Diarrhea on lactulose UC [place] albicans Pulm infiltrates Plan: Plan of Care augmentin for 5 days Maintain aspiration precaution. DAGMAR MALCOLM MD Dec 01, 2020 10:29
--- NOTE | 2020-12-01 10:45 | PDOC ---
Renal-Progress Notes Subjective Notes Notes CONFUSED History of Present Illness Hx of present illness NO ACUTE CHANGES Vitals Vitals Vital Signs Date Time Temp Pulse Resp B/P (MAP) Pulse Ox O2 Delivery O2 Flow Rate FiO2 12/01/20 08:46 97 171/92 12/01/20 08:00 Room Air 12/01/20 07:00 98.9 16 97 98.9 12/01/20 03:00 2.0 Weight Weight [ ] I.O. Intake and Output Intake and Output 12/01/20 07:00 Intake Total 220 ml Output Total 1000 ml Balance -780 ml Intake Oral 120 ml IV Total 100 ml Output Urine Total 1000 ml # Voids 1 Labs Labs Laboratory Tests Test 11/30/20 11:47 11/30/20 16:48 11/30/20 20:30 12/01/20 05:25 Glucose (Fingerstick) 122 mg/dL (70-99) 103 mg/dL (70-99) 91 mg/dL (70-99) White Blood Count 6.0 x10^3/uL (4.0-11.0) Red Blood Count 2.36 x10^6/uL (3.50-5.40) Hemoglobin 7.6 g/dL (12.0-15.5) Hematocrit 23.7 % (36.0-47.0) Mean Corpuscular Volume 101 fL (79-100) Mean Corpuscular Hemoglobin 32 pg (25-35) Mean Corpuscular Hemoglobin Concent 32 g/dL (31-37) Red Cell Distribution Width 27.3 % (11.5-14.5) Platelet Count 104 x10^3/uL (140-400) Neutrophils (%) (Auto) 68 % (31-73) Lymphocytes (%) (Auto) 20 % (24-48) Monocytes (%) (Auto) 8 % (0-9) Eosinophils (%) (Auto) 3 % (0-3) Basophils (%) (Auto) 1 % (0-3) Neutrophils # (Auto) 4.1 x10^3/uL (1.8-7.7) Lymphocytes # (Auto) 1.2 x10^3/uL (1.0-4.8) Monocytes # (Auto) 0.5 x10^3/uL (0.0-1.1) Eosinophils # (Auto) 0.2 x10^3/uL (0.0-0.7) Basophils # (Auto) 0.0 x10^3/uL (0.0-0.2) Sodium Level 140 mmol/L (136-145) Potassium Level 3.4 mmol/L (3.5-5.1) Chloride Level 108 mmol/L (98-107) Carbon Dioxide Level 24 mmol/L (21-32) Anion Gap 8 (6-14) Blood Urea Nitrogen 6 mg/dL (7-20) Creatinine 0.3 mg/dL (0.6-1.0) Estimated GFR (Cockcroft-Gault) 245.2 BUN/Creatinine Ratio 20 (6-20) Glucose Level 88 mg/dL (70-99) Calcium Level 7.8 mg/dL (8.5-10.1) Total Bilirubin 4.3 mg/dL (0.2-1.0) Aspartate Amino Transf (AST/SGOT) 127 U/L (15-37) Alanine Aminotransferase (ALT/SGPT) 35 U/L (14-59) Alkaline Phosphatase 88 U/L (46-116) Total Protein 5.6 g/dL (6.4-8.2) Albumin 1.9 g/dL (3.4-5.0) Albumin/Globulin Ratio 0.5 (1.0-1.7) Test 12/01/20 07:25 Glucose (Fingerstick) 100 mg/dL (70-99) Micro Micro Microbiology 11/26/20 Blood Culture - Preliminary, Resulted NO GROWTH AFTER 4 DAYS 11/22/20 Urine Culture - Final, Complete Review of Systems Constitutional: yes: other (UNABLE TO OBTAIN) Physical Exam General Appearance: no apparent distress Skin: warm Respiratory: decreased breath sounds Heart: S1S2 Abdomen: soft, bowel sounds present Genitourinary: bladder flat Neurology: alert, confused, other Assessment Assessment IMP EARL-RESOLVED HYPOMAGNESEMIA-RESOLVED HYPERNATREMIA-RESOLVED LOW K LIVER FAILURE ETOH ABUSE ENCEPHALOPATHY SEPSIS PLAN ON K REPLACEMENT I WILL SIGN OFF PLEASE CALL IF NEEDED JOSE ANGEL HA MD Dec 01, 2020 10:45
--- NOTE | 2020-12-01 10:49 | PDOC ---
PROGRESS NOTES Date of Service DATE: 12/01/20 TIME: 10:48 Assessment Metabolic encephalopathy Pancreatitis, liver failure (INR 1.7 on 11/25), renal failure, pancreatitis, history of gastric bypass for obesity, sepsis, hypothermia, anemia, coagulopathy, GERD, history of GI bleed and gastritis, history of anxiety and depression, hydropic gallbladder, hepatic steatosis, protein-calorie malnutrition. Plan No additional neurological studies planned Treat medical diseases On thiamine, rifaximin; now off lactulose Objective Vital Signs Date Time Temp Pulse Resp B/P (MAP) Pulse Ox O2 Delivery O2 Flow Rate FiO2 12/01/20 08:46 97 171/92 12/01/20 08:00 Room Air 12/01/20 07:00 98.9 16 97 98.9 12/01/20 03:00 2.0 Intake and Output 12/01/20 07:00 Intake Total 220 ml Output Total 1000 ml Balance -780 ml Intake Oral 120 ml IV Total 100 ml Output Urine Total 1000 ml # Voids 1 PHYSICAL EXAM Jaundiced Eyes open, says her name, follows a few commands. Does not know date or location PERRL. EOMI. CN: no focal findings. Muscle tone: normal. Muscle strength: Moves all 4 extremities to command DTR: 1+ Plantar reflex: Flexor Gait: not examined in bed. Sensory exam: Not cooperative. Cerebellar: Not cooperative Review of Relevant I have reviewed the following items josue (where applicable) has been applied. Labs Laboratory Tests Test 11/29/20 11:58 11/29/20 17:56 11/30/20 00:23 11/30/20 06:14 Glucose (Fingerstick) 137 mg/dL (70-99) 141 mg/dL (70-99) 115 mg/dL (70-99) 101 mg/dL (70-99) Test 11/30/20 06:15 11/30/20 11:47 11/30/20 16:48 11/30/20 20:30 White Blood Count 8.0 x10^3/uL (4.0-11.0) Red Blood Count 2.26 x10^6/uL (3.50-5.40) Hemoglobin 7.1 g/dL (12.0-15.5) Hematocrit 22.6 % (36.0-47.0) Mean Corpuscular Volume 100 fL (79-100) Mean Corpuscular Hemoglobin 31 pg (25-35) Mean Corpuscular Hemoglobin Concent 31 g/dL (31-37) Red Cell Distribution Width 26.3 % (11.5-14.5) Platelet Count 97 x10^3/uL (140-400) Neutrophils (%) (Auto) 77 % (31-73) Lymphocytes (%) (Auto) 13 % (24-48) Monocytes (%) (Auto) 7 % (0-9) Eosinophils (%) (Auto) 3 % (0-3) Basophils (%) (Auto) 1 % (0-3) Neutrophils # (Auto) 6.2 x10^3/uL (1.8-7.7) Lymphocytes # (Auto) 1.1 x10^3/uL (1.0-4.8) Monocytes # (Auto) 0.5 x10^3/uL (0.0-1.1) Eosinophils # (Auto) 0.2 x10^3/uL (0.0-0.7) Basophils # (Auto) 0.0 x10^3/uL (0.0-0.2) Sodium Level 141 mmol/L (136-145) Potassium Level 3.3 mmol/L (3.5-5.1) Chloride Level 109 mmol/L (98-107) Carbon Dioxide Level 26 mmol/L (21-32) Anion Gap 6 (6-14) Blood Urea Nitrogen 5 mg/dL (7-20) Creatinine 0.3 mg/dL (0.6-1.0) Estimated GFR (Cockcroft-Gault) 245.2 BUN/Creatinine Ratio 17 (6-20) Glucose Level 98 mg/dL (70-99) Calcium Level 8.0 mg/dL (8.5-10.1) Phosphorus Level 2.6 mg/dL (2.6-4.7) Magnesium Level 1.6 mg/dL (1.8-2.4) Total Bilirubin 4.8 mg/dL (0.2-1.0) Aspartate Amino Transf (AST/SGOT) 120 U/L (15-37) Alanine Aminotransferase (ALT/SGPT) 36 U/L (14-59) Alkaline Phosphatase 86 U/L (46-116) Total Protein 5.7 g/dL (6.4-8.2) Albumin 2.0 g/dL (3.4-5.0) Albumin/Globulin Ratio 0.5 (1.0-1.7) Glucose (Fingerstick) 122 mg/dL (70-99) 103 mg/dL (70-99) 91 mg/dL (70-99) Test 12/01/20 05:25 12/01/20 07:25 White Blood Count 6.0 x10^3/uL (4.0-11.0) Red Blood Count 2.36 x10^6/uL (3.50-5.40) Hemoglobin 7.6 g/dL (12.0-15.5) Hematocrit 23.7 % (36.0-47.0) Mean Corpuscular Volume 101 fL (79-100) Mean Corpuscular Hemoglobin 32 pg (25-35) Mean Corpuscular Hemoglobin Concent 32 g/dL (31-37) Red Cell Distribution Width 27.3 % (11.5-14.5) Platelet Count 104 x10^3/uL (140-400) Neutrophils (%) (Auto) 68 % (31-73) Lymphocytes (%) (Auto) 20 % (24-48) Monocytes (%) (Auto) 8 % (0-9) Eosinophils (%) (Auto) 3 % (0-3) Basophils (%) (Auto) 1 % (0-3) Neutrophils # (Auto) 4.1 x10^3/uL (1.8-7.7) Lymphocytes # (Auto) 1.2 x10^3/uL (1.0-4.8) Monocytes # (Auto) 0.5 x10^3/uL (0.0-1.1) Eosinophils # (Auto) 0.2 x10^3/uL (0.0-0.7) Basophils # (Auto) 0.0 x10^3/uL (0.0-0.2) Sodium Level 140 mmol/L (136-145) Potassium Level 3.4 mmol/L (3.5-5.1) Chloride Level 108 mmol/L (98-107) Carbon Dioxide Level 24 mmol/L (21-32) Anion Gap 8 (6-14) Blood Urea Nitrogen 6 mg/dL (7-20) Creatinine 0.3 mg/dL (0.6-1.0) Estimated GFR (Cockcroft-Gault) 245.2 BUN/Creatinine Ratio 20 (6-20) Glucose Level 88 mg/dL (70-99) Calcium Level 7.8 mg/dL (8.5-10.1) Total Bilirubin 4.3 mg/dL (0.2-1.0) Aspartate Amino Transf (AST/SGOT) 127 U/L (15-37) Alanine Aminotransferase (ALT/SGPT) 35 U/L (14-59) Alkaline Phosphatase 88 U/L (46-116) Total Protein 5.6 g/dL (6.4-8.2) Albumin 1.9 g/dL (3.4-5.0) Albumin/Globulin Ratio 0.5 (1.0-1.7) Glucose (Fingerstick) 100 mg/dL (70-99) Laboratory Tests Test 11/30/20 11:47 11/30/20 16:48 11/30/20 20:30 12/01/20 05:25 Glucose (Fingerstick) 122 mg/dL (70-99) 103 mg/dL (70-99) 91 mg/dL (70-99) White Blood Count 6.0 x10^3/uL (4.0-11.0) Red Blood Count 2.36 x10^6/uL (3.50-5.40) Hemoglobin 7.6 g/dL (12.0-15.5) Hematocrit 23.7 % (36.0-47.0) Mean Corpuscular Volume 101 fL (79-100) Mean Corpuscular Hemoglobin 32 pg (25-35) Mean Corpuscular Hemoglobin Concent 32 g/dL (31-37) Red Cell Distribution Width 27.3 % (11.5-14.5) Platelet Count 104 x10^3/uL (140-400) Neutrophils (%) (Auto) 68 % (31-73) Lymphocytes (%) (Auto) 20 % (24-48) Monocytes (%) (Auto) 8 % (0-9) Eosinophils (%) (Auto) 3 % (0-3) Basophils (%) (Auto) 1 % (0-3) Neutrophils # (Auto) 4.1 x10^3/uL (1.8-7.7) Lymphocytes # (Auto) 1.2 x10^3/uL (1.0-4.8) Monocytes # (Auto) 0.5 x10^3/uL (0.0-1.1) Eosinophils # (Auto) 0.2 x10^3/uL (0.0-0.7) Basophils # (Auto) 0.0 x10^3/uL (0.0-0.2) Sodium Level 140 mmol/L (136-145) Potassium Level 3.4 mmol/L (3.5-5.1) Chloride Level 108 mmol/L (98-107) Carbon Dioxide Level 24 mmol/L (21-32) Anion Gap 8 (6-14) Blood Urea Nitrogen 6 mg/dL (7-20) Creatinine 0.3 mg/dL (0.6-1.0) Estimated GFR (Cockcroft-Gault) 245.2 BUN/Creatinine Ratio 20 (6-20) Glucose Level 88 mg/dL (70-99) Calcium Level 7.8 mg/dL (8.5-10.1) Total Bilirubin 4.3 mg/dL (0.2-1.0) Aspartate Amino Transf (AST/SGOT) 127 U/L (15-37) Alanine Aminotransferase (ALT/SGPT) 35 U/L (14-59) Alkaline Phosphatase 88 U/L (46-116) Total Protein 5.6 g/dL (6.4-8.2) Albumin 1.9 g/dL (3.4-5.0) Albumin/Globulin Ratio 0.5 (1.0-1.7) Test 12/01/20 07:25 Glucose (Fingerstick) 100 mg/dL (70-99) Microbiology 11/26/20 Blood Culture - Preliminary, Resulted NO GROWTH AFTER 4 DAYS 11/22/20 Urine Culture - Final, Complete Medications Current Medications Lorazepam (Ativan Inj) 0.5 mg PRN Q6HRS PRN IVP ANXIETY / AGITATION Last administered on 11/18/20at 18:10; Start 11/17/20 at 16:15; Stop 11/19/20 at 01:14; Status DC Ondansetron HCl (Zofran) 4 mg PRN Q6HRS PRN IVP NAUSEA/VOMITING, 1ST CHOICE Last administered on 11/27/20at 23:53; Start 11/17/20 at 16:15 Prochlorperazine Edisylate (Compazine) 5 mg PRN Q6HRS PRN IVP NAUSEA/VOMITING, 2ND CHOICE; Start 11/17/20 at 16:15 Info (Icu Electrolyte Protocol) 1 ea DAILY MC Last administered on 11/27/20at 06:29; Start 11/18/20 at 09:00; Stop 11/28/20 at 12:44; Status DC Sodium Chloride (Normal Saline Flush) 3 ml QSHIFT PRN IV AFTER MEDS AND BLOOD DRAWS; Start 11/17/20 at 16:15 Sodium Chloride 1,000 ml @ 1,000 mls/hr Q1H IV Last administered on 11/17/20at 17:50; Start 11/17/20 at 16:15; Stop 11/17/20 at 17:14; Status DC Fentanyl Citrate (Fentanyl 2ml Vial) 25 mcg PRN Q1HR PRN IV PAIN Last administered on 11/30/20at 03:37; Start 11/17/20 at 16:15 Lactulose (Lactulose) 20 gm PRN Q12HR PRN PO CONSTIPATION; Start 11/17/20 at 16:15; Stop 11/17/20 at 17:40; Status DC Bisacodyl (Dulcolax Supp) 10 mg PRN DAILY PRN [place] CONSTIPATION; Start 11/17/20 at 16:15 Pantoprazole Sodium (PROTONIX VIAL for IV PUSH) 40 mg DAILYAC IVP ; Start at 07:30; Stop 11/17/20 at 17:40; Status DC Lactulose (LACTULOSE 300ML for RECTAL) 200 gm Q6HRS [place] ; Start 11/17/20 at 1 8:00; Stop 11/17/20 at 17:40; Status DC Sodium Bicarbonate 75 meq/Sodium Chloride 1,075 ml @ 125 mls/hr Q8H36M IV Last administered on 11/19/20at 05:44; Start 11/17/20 at 17:00; Stop 11/19/20 at 09:16; Status DC Pantoprazole Sodium (PROTONIX VIAL for IV PUSH) 80 mg 1X ONCE IVP Last administered on 11/17/20at 17:50; Start 11/17/20 at 18:00; Stop 11/17/20 at 18:01; Status DC Pantoprazole Sodium 80 mg/ Sodium Chloride 100 ml @ 10 mls/hr Q10H IV Last administered on 11/21/20at 12:30; Start 11/17/20 at 18:00; Stop 11/21/20 at 13:52; Status DC Octreotide Acetate 500 mcg/ Sodium Chloride 101 ml @ 10.1 mls/hr CONT PRN IV SEE I/O RECORD Last administered on 11/21/20at 12:30; Start 11/17/20 at 17:30; Stop 11/21/20 at 13:52; Status DC Lactulose (LACTULOSE 300ML for RECTAL) 200 gm Q2HR [place] Last administered on 11/20/20at 13:23; Start 11/17/20 at 18:00; Stop 11/20/20 at 19:16; Status DC Magnesium Sulfate 50 ml @ 25 mls/hr 1X ONCE IV Last administered on 11/17/20at 18:34; Start 11/17/20 at 18:30; Stop 11/17/20 at 20:29; Status DC Albumin Human 500 ml @ 125 mls/hr PRN DAILY PRN IV HYPOTENSION Last administered on 11/18/20at 01:47; Start 11/18/20 at 00:15 Multivitamins 10 ml/Thiamine HCl 100 mg/Folic Acid 1 mg/Sodium Chloride 1,011.2 ml @ 100 mls/ hr DAILY IV Last administered on 11/21/20at 09:17; Start 11/18/20 at 09:00; Stop 11/21/20 at 13:58; Status DC Thiamine HCl 100 mg/Dextrose 51 ml @ 100 mls/hr DAILY IV ; Start 11/23/20 at 09:00; Stop 11/27/20 at 09:31; Status Cancel Lorazepam (Ativan) 2 mg Q6H PO ; Start 11/18/20 at 08:00; Stop 11/19/20 at 01:14; Status DC Lactulose (Lactulose) 30 gm PRN DAILY PRN PO GI SYMPTOMS; Start 11/18/20 at 08:00; Status UNV Lactulose (Lactulose) 30 gm PRN DAILY PRN PO GI SYMPTOMS; Start 11/18/20 at 08:30; Status UNV Piperacillin Sod/ Tazobactam Sod (Zosyn Per Pharmacy) 1 each PRN DAILY PRN MC SEE COMMENTS; Start 11/18/20 at 12:00; Stop 11/26/20 at 13:15; Status DC Piperacillin Sod/ Tazobactam Sod 3.375 gm/Sodium Chloride 50 ml @ 100 mls/hr Q6HRS IV Last administered on 11/26/20at 12:07; Start 11/18/20 at 12:00; Stop 11/26/20 at 13:15; Status DC Phytonadione (Vitamin K Ampule) 5 mg 1X ONCE SQ Last administered on 11/18/20at 12:50; Start 11/18/20 at 12:15; Stop 11/18/20 at 12:16; Status DC Lorazepam (Ativan Inj) 2 mg PRN Q1HR PRN IV For CIWA 8-14 Last administered on 11/29/20at 00:32; Start 11/18/20 at 18:15 Potassium Chloride/Water 100 ml @ 100 mls/hr Q1H IV Last administered on 11/19/20at 09:30; Start 11/19/20 at 08:30; Stop 11/19/20 at 10:29; Status DC Magnesium Sulfate 50 ml @ 25 mls/hr PRN DAILY PRN IV for Mag < 1.7 on am labs Last administered on 11/30/20at 07:21; Start 11/19/20 at 08:30 Albumin Human 100 ml @ 100 mls/hr TID IV Last administered on 11/20/20at 22:11; Start 11/19/20 at 10:00; Stop 11/20/20 at 21:59; Status DC Lorazepam (Ativan Inj) 4 mg PRN Q1HR PRN IV For CIWA 15 or greater Last administered on 11/26/20at 16:28; Start 11/19/20 at 10:00 Dexmedetomidine HCl 400 mcg/ Sodium Chloride 100 ml @ 0 mls/hr CONT PRN IV PER PROTOCOL Last administered on 11/24/20at 11:06; Start 11/19/20 at 10:00; Stop 11/29/20 at 12:38; Status DC Sodium Chloride 500 ml @ 500 mls/hr 1X PRN PRN IV SEE COMMENTS; Start 11/19/20 at 10:00 Atropine Sulfate (ATROPINE 0.5mg SYRINGE) 0.5 mg PRN Q5MIN PRN IV SEE COMMENTS; Start 11/19/20 at 10:00 Calcium Gluconate 1000 mg/Sodium Chloride 110 ml @ 220 mls/hr 1X ONCE IV ; Start 11/19/20 at 14:00; Stop 11/19/20 at 14:29; Status UNV Calcium Gluconate 1000 mg/Sodium Chloride 110 ml @ 220 mls/hr 1X ONCE IV Last administered on 11/19/20at 14:29; Start 11/19/20 at 15:00; Stop 11/19/20 at 15:29; Status DC Potassium Chloride/Water 100 ml @ 100 mls/hr Q1H IV Last administered on 11/20/20at 16:11; Start 11/20/20 at 10:30; Stop 11/20/20 at 14:29; Status DC Lactulose (Lactulose) 20 gm QID FT Last administered on 11/26/20at 21:38; Start 11/20/20 at 17:00; Stop 11/27/20 at 11:58; Status DC Lactulose (Lactulose) 20 gm STK-MED ONCE .ROUTE ; Start 11/20/20 at 16:09; Stop 11/20/20 at 16:09; Status DC Albumin Human 100 ml @ As Directed STK-MED ONCE IV ; Start 11/20/20 at 22:06; Stop 11/20/20 at 22:07; Status DC Lactulose (Lactulose) 20 gm STK-MED ONCE .ROUTE ; Start 11/20/20 at 22:07; Stop 11/20/20 at 22:07; Status DC Lactulose (Lactulose) 20 gm STK-MED ONCE .ROUTE ; Start 11/21/20 at 09:04; Stop 11/21/20 at 09:05; Status DC Potassium Chloride/Water 100 ml @ 100 mls/hr Q1H IV Last administered on 11/21/20at 11:16; Start 11/21/20 at 09:30; Stop 11/21/20 at 11:29; Status DC Rifaximin (Xifaxan) 550 mg Q12HR PO Last administered on 12/01/20at 08:42; Start 11/21/20 at 12:30 Info (Tpn Per Pharmacy) 1 each PRN DAILY PRN MC SEE COMMENTS Last administered on 11/24/20at 15:59; Start 11/21/20 at 14:00; Stop 11/24/20 at 18:58; Status DC Potassium Phosphate 15 mmol/ Sodium Chloride 255 ml @ 127.5 mls/ hr 1X ONCE IV Last administered on 11/21/20at 14:19; Start 11/21/20 at 14:00; Stop 11/21/20 at 15:59; Status DC Pantoprazole Sodium (PROTONIX VIAL for IV PUSH) 40 mg BID IVP Last administered on 11/26/20at 21:39; Start 11/21/20 at 21:00; Stop 11/27/20 at 11:58; Status DC Potassium Chloride 50 meq/ Potassium Phosphate 13.6 mmol/Magnesium Sulfate 10 meq/ Calcium Gluconate 10 meq/ Multivitamins 5 ml/Zinc/Copper/ Manganese/ Selenium 1 ml/ Thiamine HCl 100 mg/Folic Acid 1 mg/Total Parenteral Nutrition/Amino Acids/Dextrose/ Fat Emuls... 1,800 ml @ 75 mls/hr TPN CONT IV Last administered on 11/21/20at 22:55; Start 11/21/20 at 22:00; Stop 11/22/20 at 21:59; Status DC Rifaximin (Xifaxan) 550 mg STK-MED ONCE PO ; Start 11/21/20 at 14:17; Stop 11/21/20 at 14:17; Status DC Lactulose (Lactulose) 20 gm STK-MED ONCE .ROUTE ; Start 11/21/20 at 14:17; Stop 11/21/20 at 14:17; Status DC Daptomycin 470 mg/ Sodium Chloride 50 ml @ 100 mls/hr Q24H IV Last administered on 11/25/20at 13:18; Start 11/22/20 at 13:00; Stop 11/26/20 at 13:15; Status DC Potassium Phosphate 15 mmol/ Sodium Chloride 255 ml @ 127.5 mls/ hr 1X ONCE IV Last administered on 11/22/20at 13:20; Start 11/22/20 at 14:00; Stop 11/22/20 at 15:59; Status DC Potassium Acetate 50 meq/Potassium Phosphate 18 mmol/ Magnesium Sulfate 10 meq/Calcium Gluconate 10 meq/ Multivitamins 5 ml/Zinc/Copper/ Manganese/ Selenium 1 ml/ Thiamine HCl 100 mg/Folic Acid 1 mg/Total Parenteral Nutrition/Amino Acids/Dextrose 1,800 ml @ 75 mls/hr TPN CONT IV Last administered on 11/22/20at 21:37; Start 11/22/20 at 22:00; Stop 11/23/20 at 21:59; Status DC Potassium Chloride/Water 100 ml @ 100 mls/hr 1X ONCE IV Last administered on 11/22/20at 15:20; Start 11/22/20 at 16:00; Stop 11/22/20 at 16:59; Status DC Albuterol Sulfate (Ventolin Neb Soln) 2.5 mg PRN Q4HRS PRN NEB SHORTNESS OF BREATH Last administered on 11/23/20at 11:53; Start 11/23/20 at 09:15 Potassium Phosphate 15 mmol/ Sodium Chloride 255 ml @ 127.5 mls/ hr 1X ONCE IV Last administered on 11/23/20at 10:39; Start 11/23/20 at 11:00; Stop 11/23/20 at 12:59; Status DC Potassium Acetate 50 meq/Potassium Phosphate 21 mmol/ Magnesium Sulfate 10 meq/Calcium Gluconate 10 meq/ Multivitamins 5 ml/Zinc/Copper/ Manganese/ Selenium 1 ml/ Thiamine HCl 100 mg/Folic Acid 1 mg/Total Parenteral Nutrition/Amino Acids/Dextrose 1,800 ml @ 75 mls/hr TPN CONT IV Last administered on 11/23/20at 21:54; Start 11/23/20 at 22:00; Stop 11/24/20 at 18:59; Status DC Amlodipine Besylate (Norvasc) 10 mg DAILY PO Last administered on 12/01/20at 08:43; Start 11/24/20 at 09:00 Amlodipine Besylate (Norvasc) 10 mg 1X ONCE PO Last administered on 11/23/20at 10:03; Start 11/23/20 at 10:00; Stop 11/23/20 at 10:01; Status DC Labetalol HCl (Normodyne Iv Push) 20 mg PRN Q4HRS PRN IVP HYPERTENSION Last administered on 11/24/20at 09:24; Start 11/24/20 at 09:30; Stop 11/24/20 at 10:40; Status DC Enalaprilat (Vasotec Inj) 2.5 mg PRN Q6HRS PRN IVP HYPERTENSION-2ND CHOICE Last administered on 11/26/20at 09:40; Start 11/24/20 at 10:15 Labetalol HCl (Normodyne Iv Push) 20 mg PRN Q2HR PRN IVP HYPERTENSION Last administered on 12/01/20at 08:46; Start 11/24/20 at 10:45 Magnesium Sulfate 50 ml @ 25 mls/hr 1X ONCE IV Last administered on 11/24/20at 11:03; Start 11/24/20 at 12:00; Stop 11/24/20 at 13:59; Status DC Potassium Acetate 50 meq/Potassium Phosphate 21 mmol/ Magnesium Sulfate 10 meq/Calcium Gluconate 10 meq/ Multivitamins 5 ml/Zinc/Copper/ Manganese/ Selenium 1 ml/ Thiamine HCl 100 mg/Folic Acid 1 mg/Total Parenteral Nutrition/Amino Acids/Dextrose 1,800 ml @ 75 mls/hr TPN CONT IV ; Start 11/24/20 at 22:00; Stop 11/24/20 at 18:59; Status DC Insulin Human Lispro (HumaLOG) 0-5 UNITS TIDWMEALS SQ ; Start 11/24/20 at 17:00; Stop 11/24/20 at 12:43; Status DC Dextrose (Dextrose 50%-Water Syringe) 12.5 gm PRN Q15MIN PRN IV SEE COMMENTS; Start 11/24/20 at 12:45; Status Cancel Nicardipine HCl 50 mg/Sodium Chloride 250 ml @ 25 mls/hr CONT PRN IV SEE I/O RECORD Last administered on 11/24/20at 22:35; Start 11/24/20 at 12:45 Insulin Human Lispro (HumaLOG) 0-7 UNITS TIDWMEALS SQ ; Start 11/24/20 at 17:00; Stop 11/24/20 at 18:58; Status DC Dextrose (Dextrose 50%-Water Syringe) 12.5 gm PRN Q15MIN PRN IV SEE COMMENTS; Start 11/24/20 at 12:45; Stop 11/30/20 at 15:02; Status DC Insulin Human Lispro (HumaLOG) 0-7 UNITS Q6HRS SQ Last administered on 11/28/20at 11:23; Start 11/25/20 at 00:00; Stop 11/30/20 at 11:50; Status DC Ibuprofen (Motrin) 600 mg PRN Q6HRS PRN PO INFLAMMATION Last administered on 12/01/20at 05:32; Start 11/25/20 at 11:15 Magnesium Sulfate 50 ml @ 25 mls/hr 1X ONCE IV Last administered on 11/25/20at 14:02; Start 11/25/20 at 12:00; Stop 11/25/20 at 13:59; Status DC Magnesium Sulfate 50 ml @ 25 mls/hr 1X ONCE IV ; Start 11/26/20 at 13:45; Stop 11/26/20 at 15:44; Status DC Metronidazole 100 ml @ 100 mls/hr Q8HRS IV Last administered on 11/29/20at 06:25; Start 11/26/20 at 14:00; Stop 11/29/20 at 09:12; Status DC Cefepime HCl (Maxipime) 1 gm Q8HRS IVP Last administered on 11/29/20at 06:24; Start 11/26/20 at 14:00; Stop 11/29/20 at 09:12; Status DC Linezolid/Dextrose 300 ml @ 300 mls/hr Q12HR IV Last administered on 11/28/20at 10:13; Start 11/26/20 at 21:00; Stop 11/28/20 at 11:35; Status DC Micafungin Sodium 100 mg/Dextrose 100 ml @ 100 mls/hr Q24H IV Last administered on 11/27/20at 14:22; Start 11/26/20 at 14:00; Stop 11/28/20 at 11:35; Status DC Potassium Chloride (Klor-Con) 40 meq 1X ONCE PO Last administered on 11/27/20at 06:36; Start 11/27/20 at 07:00; Stop 11/27/20 at 07:01; Status DC Magnesium Sulfate 100 ml @ 50 mls/hr 1X ONCE IV Last administered on at 06:37; Start 11/27/20 at 07:00; Stop 11/27/20 at 08:59; Status DC Lactulose (Lactulose) 20 gm DAILY FT Last administered on 11/28/20at 10:18; Start 11/28/20 at 09:00; Stop 11/29/20 at 10:29; Status DC Pantoprazole Sodium (PROTONIX VIAL for IV PUSH) 40 mg DAILY IVP Last administered on 11/30/20at 08:32; Start 11/28/20 at 07:30; Stop 11/30/20 at 11:29; Status DC Potassium Chloride/Water 100 ml @ 100 mls/hr 1X ONCE IV Last administered on 11/28/20at 11:02; Start 11/28/20 at 11:30; Stop 11/28/20 at 12:29; Status DC Fluoxetine HCl (PROzac) 20 mg BID PEG Last administered on 11/30/20at 08:32; Start 11/28/20 at 21:00; Stop 11/30/20 at 20:42; Status DC Info (Non-Icu Electrolyte Protocol) 1 ea CONT PRN PRN MC SEE COMMENTS; Start 11/28/20 at 13:00 Magnesium Sulfate 50 ml @ 25 mls/hr 1X ONCE IV Last administered on 11/28/20at 16:07; Start 11/28/20 at 16:00; Stop 11/28/20 at 17:59; Status DC Thiamine Mononitrate (Vitamin B-1) 100 mg DAILY PEG Last administered on 12/01/20at 08:43; Start 11/29/20 at 09:00 Folic Acid (Folic Acid) 1 mg DAILY PEG Last administered on 12/01/20at 08:43; Start 11/29/20 at 09:00 Multivitamins/ Minerals Therapeutic (Centrum Multivit-Mineral Liq) 5 ml DAILY PEG Last administered on 12/01/20at 08:43; Start 11/29/20 at 09:00 Amoxicillin/ Clavulanate Potassium (Augmentin 875/ 125mg) 1 tab BID PO Last administered on 12/01/20at 08:42; Start 11/29/20 at 21:00 Lactulose (Lactulose) 20 gm PRN DAILY PRN FT constipation; Start 11/29/20 at 10:30; Stop 11/30/20 at 11:29; Status DC Potassium Chloride (Klor-Con) 40 meq 1X ONCE PO Last administered on 11/29/20at 13:56; Start 11/29/20 at 13:30; Stop 11/29/20 at 13:31; Status DC Magnesium Sulfate 50 ml @ 25 mls/hr 1X ONCE IV Last administered on 11/29/20at 13:56; Start 11/29/20 at 13:30; Stop 11/29/20 at 15:29; Status DC Lactulose (Lactulose) 20 gm PRN BID PRN PO constipation; Start 11/30/20 at 11:30 Pantoprazole Sodium (Protonix) 40 mg DAILYAC PO Last administered on 12/01/20at 08:44; Start 12/01/20 at 07:30 Insulin Human Lispro (HumaLOG) 0-7 UNITS TIDACHC SQ ; Start 11/30/20 at 12:00 Dextrose (Dextrose 50%-Water Syringe) 12.5 gm PRN Q15MIN PRN IV SEE COMMENTS; Start 11/30/20 at 12:00 Potassium Chloride (Klor-Con) 20 meq DAILYWBKFT PO Last administered on 12/01/20at 08:43; Start 11/30/20 at 12:30 Magnesium Sulfate 50 ml @ 25 mls/hr 1X ONCE IV Last administered on 11/30/20at 12:49; Start 11/30/20 at 13:00; Stop 11/30/20 at 14:59; Status DC Fluoxetine HCl (PROzac) 20 mg BID PO Last administered on 12/01/20at 08:43; Start 11/30/20 at 21:00 Vitals/I & O Vital Sign - Last 24 Hours 11/30/20 11/30/20 11/30/20 11/30/20 11:00 15:00 19:00 20:00 Temp 99.0 98.5 98.6 99.0 98.5 98.6 Pulse 97 96 101 Resp 18 20 20 B/P (MAP) 142/85 (104) 147/82 (103) 164/93 (116) Pulse Ox 96 98 99 O2 Delivery Room Air Room Air Room Air O2 Flow Rate 2.0 11/30/20 12/01/20 12/01/20 12/01/20 23:00 03:00 07:00 08:00 Temp 98.0 99.1 98.9 98.0 99.1 98.9 Pulse 100 97 97 Resp 20 20 16 B/P (MAP) 165/92 (116) 172/97 (122) 171/92 (118) Pulse Ox 99 97 97 O2 Delivery Room Air Room Air Room Air Room Air O2 Flow Rate 2.0 2.0 12/01/20 12/01/20 08:43 08:46 Pulse 97 97 B/P (MAP) 171/92 171/92 Intake and Output 4/29/21 4/29/21 4/30/21 15:00 23:00 07:00 Intake Total 220 ml 0 ml Output Total 1000 ml Balance 220 ml -1000 ml Justicifation of Admission Dx: Justifications for Admission: Justification of Admission Dx: Yes Sepsis: Altered Mental Status Altered Mental Status: Altered Mental Status MADDISON COLE MD Dec 01, 2020 10:49
[2020-12-01 11:00] VITALS: BP 158/84
--- NOTE | 2020-12-01 11:37 | NUR ---
SW following. Discussed with RN, pt more alert today. SW requested PAT team come back this morning to assess patient (pt was not alert yesterday when PAT tried to visit). PT/OT recommending SNF - SW to discuss after pt cleared by PAT team. Pt getting closer to discharge. BARRY will continue to follow. Addendum: 12/01/20 at 1413 by REAGAN REDDY Edu (GOYO) met with pt, pt is set up with [facility] in . PT/OT recommending SNF - BARRY attempted to meet with pt, however pt asleep and could not be woken. Pt's father at bedside suggested SW contact pt call pt's spouse, Rene. BARRY spoke with Rene - he is agreeable to SNF and would like SW to find somewhere in network with pt[facility] insurance[facility] and [facility] do not take pt's insurance. Facesheet sent to [place] to determine insurance. [facility] in network - referral faxed to [facility]. BARRY will continue to follow. Addendum: 12/04/20 at 1524 by REAGAN REDDY SW following. Discussed with RN, SW awaiting acceptance decision from [facility] - they are running a background check as patient recently got out of longterm (October 2020). SW will continue to follow.
--- NOTE | 2020-12-01 11:49 | PDOC ---
[employer] PROGRESS NOTE Date of Service DOS: DATE: 12/01/20 TIME: 11:40 Chief Complaint Chief Complaint A/P: Acute hepatic encephalopathy Acute liver failure, likely from alcoholism with hyperbilirubinemia. Improving slowly Acute renal failure. Anemia. Status post PRBC Coagulopathy. Severe Protein-calorie malnutrition. History of gastroesophageal reflux disease, GI bleed, gastritis, pancreatitis, peptic ulcer disease. History of anxiety and depression. Hydropic gallbladder with hepatic steatosis. Sepsis - urine with [place], likely some element of aspiration pneumonitis/pneumonia as well Diarrhea on lactulose UC [place] albicans Pulmonary infiltrates History of Present Illness History of Present Illness Much less confused today. Father is visiting. Moving with full assistance to chair, feeling a bit stronger. Labs improved. Wishes for acute rehab rehab 11/30: Less confused today. Her father is visiting. She pulled her NG tube out overnight but she did eat breakfast. Electrolyte replaced by nephrology. Hemo globin 7.1 today. Long discussion with alcohol cessation undertaken. She wants to stop drinking vodka has been alcohol rehab twice. 11/29: Still confused. Seen bedside NG tube and on GT feeds. Able to pass swallow evaluation with UPHOLSTERY DEPARTMENT SUPERVISOR. Potassium 3 mag 1.7. She still little confused but does recall that she is at [place] upon prompting. 11/28/2020 Patient seen and examined in ICU Spoke with nursing, chart reviewed Patient depressed some 11/27/2020 Patient seen and examined in ICU. She tried to speak more today than she has previously, but not able to understand her very well Spoke to nursing chart reviewed 11/26/2020 Patient seen and examined in ICU. Patient was awake but did not talk. Spoke with Rene, the patient's . She has spoken some words to him. Spoke with RN. NG feeding 40cc/hr. 11/25/2020 Patient seen and examined in ICU Remains extremely encephalopathic Spoke with RN Spoke with patient's on the phone, he is distraught over her condition. Blood pressure still high Fever today of 100.6. 11/24/2020 Patient seen and examined in the ICU She remains extremely encephalopathic Eyes open but does not really make eye contact Discussed with RN Her pressures are running high Have added an IV labetalol and IV Vasotec Prognosis guarded and she is still critically ill 11/23/20 Patient seen and examined in ICU Chart review, discussed with nursing and employment evaluator/case manager Still visibly jaundiced, tried to speak but unable to form words Lab work improving since beginning lactulose and rifaxamin. Bilirubin down. Patient did have new onset wheezing today and spoke to nursing about starting PRN nebulizers. 11/22/20 Patient seen and examined in the ICU Chart reviewed, discussed with nursing and employment evaluator/case manager Still visibly jaundiced, encephalopathic, but eyes open. Anemia - 6.8. WBC count up to 81. PEG not tolerated. GI considering TPN Patient started on lactulose + rifaxamin per GI FFP being considered for coagulopathy. 11/21/20 Patient seen and examined in the ICU Chart reviewed Still visibly jaundiced Respiratory rate improved to around 25 today, was around 30-35 yesterday. Anemia improving; at Hgb of 6.6 today. Ordered 1 unit PRBC this morning. Hypothermia resolved; temp today 98.1 WBC count improved to 6. Patient now on PEG tube. Dex for sedation Octreotide drip IV Protonix Continue rectal bag Wood to BSD in place 11/20/20 Patient seen and examined in the ICU Chart reviewed She is visibly jaundiced Very anemic with HBG at 2.44 Hypothermic today with temp of 97.5 F (04:00), up from 94.4 F yesterday (20:00) White blood cells trending downward from normal, today WBC are 3.7 Dex for sedation Octreotide drip in the room IV Protonix going Continue rectal bag Wood to BSD in place 11/19/20 VERY ANEMIC, HYPOTENSIVE 11-18 MELD score on admit is 40, PROGNOSIS VERY GUARDED ECHO pending, cardiology consulted Stools slightly red per RN NH4 pending IONIZED CA 1.05 VIT D LEVEL pending 11/18/20 VERY ANEMIC, HYPOTENSIVE OVERNIGHT ECHO pending, cardiology consulted NH4 pending ID CONSULT NEUROLOGY CONSULT Gen Surg consult 11/17/20 Ms Phipps is a 40yo F w/ PMHx morbid obesity s/p gastric bypass ini 2008, alcohol use disorder, Anxiety, Depression, Hypertension, IBS, Kidney Stones, Pancreatitis, chronic back pain, and smoker who presented to [facility] ED in [place], [place] via EMS for altered mental status. Her called because patient has been on couch has been increasingly confused over the past 5 days. Per EMS report she had a fall a few days ago when she was intoxicated. EKG appears sinus tachycardia, heart rate [address] elevation or depression, no ectopy. Normal intervals. T waves unremarkable. CT chest abdomen pelvis revealed severe hepatic steatosis and cholelithiasis with hydropic gallbladder and gastric bypass, no other acute findings. CT head with no acute hemorrhage. Labs with WBC 7.5, Hb 6.4, platelets 237, Na 130, K 4.3, BUN 10, Cr 2.3, glucose 72, Trop 0, BNP 939, Albumin 1.8, INR 4.9, ammonia 44, bilirubin 11, AST 2744, ALT 400, Alk phos 172, Lipase 42 Given concern for acute liver failure and acute renal failure patient accepted for transfer to [facility] for specialist consultation. Seen bedside with her , patient following very few commands, otherwise drowsy, not oriented, moaning, not articulating well or making meaningful eye contact. notes that sometimes this might happen for a week at a time at home and frightens their 11 and 17 year old children. He notes "it has been a rough year". She was released [facility] in [facility] last October after a DUI and parole violation of intoxication with alcohol that led to her serving 17 months in federal skilled nursing [place]. She has struggled with substance use disorder, specifically alcohol, according to her since her gastric bypass in 2008, has been previously treated for this as well as pancreatitis. Admitted to ICU for further treatment. Due to the inability to maintain a peripheral IV and concern for potential uncontrollable bleeding in the neck a right femoral central venous catheter was placed for medications, blood transfusion and lab draw purposes for frequent lab draws. Vitals/I&O Vitals/I&O: Vital Signs Date Time Temp Pulse Resp B/P (MAP) Pulse Ox O2 Delivery O2 Flow Rate FiO2 12/01/20 11:00 99.1 92 16 158/84 (108) 98 Room Air 99.1 12/01/20 03:00 2.0 I & O 11/30/20 11/30/20 12/01/20 15:00 23:00 07:00 Intake Total 220 ml 0 ml Output Total 1000 ml Balance 220 ml -1000 ml Physical Exam Physical Exam: GENERAL: Awake ,more alert HEENT: PERRL,EOMI Oral cavity is dry. NECK: Supple. LUNGS: Clear bilaterally. labored. HEART: S1, S2. No murmurs. Regular. ABDOMEN: Obese, soft, Bowel sounds presen EXTREMITIES: Edema present no cyanosis. DERMATOLOGIC: No generalized rash. Multiple tattoos. CENTRAL NERVOUS SYSTEM: more alert RUE PICC line (11/20), some bruising present. General: Alert, mild distress Heart: Regular rate Lungs: Clear Abdomen: Soft, Other (obese ) Extremities: No cyanosis Skin: No breakdown, Other (Visibly jaundiced.) Labs Labs: Laboratory Tests Test 11/30/20 11:47 11/30/20 16:48 11/30/20 20:30 12/01/20 05:25 Glucose (Fingerstick) 122 mg/dL (70-99) 103 mg/dL (70-99) 91 mg/dL (70-99) White Blood Count 6.0 x10^3/uL (4.0-11.0) Red Blood Count 2.36 x10^6/uL (3.50-5.40) Hemoglobin 7.6 g/dL (12.0-15.5) Hematocrit 23.7 % (36.0-47.0) Mean Corpuscular Volume 101 fL (79-100) Mean Corpuscular Hemoglobin 32 pg (25-35) Mean Corpuscular Hemoglobin Concent 32 g/dL (31-37) Red Cell Distribution Width 27.3 % (11.5-14.5) Platelet Count 104 x10^3/uL (140-400) Neutrophils (%) (Auto) 68 % (31-73) Lymphocytes (%) (Auto) 20 % (24-48) Monocytes (%) (Auto) 8 % (0-9) Eosinophils (%) (Auto) 3 % (0-3) Basophils (%) (Auto) 1 % (0-3) Neutrophils # (Auto) 4.1 x10^3/uL (1.8-7.7) Lymphocytes # (Auto) 1.2 x10^3/uL (1.0-4.8) Monocytes # (Auto) 0.5 x10^3/uL (0.0-1.1) Eosinophils # (Auto) 0.2 x10^3/uL (0.0-0.7) Basophils # (Auto) 0.0 x10^3/uL (0.0-0.2) Sodium Level 140 mmol/L (136-145) Potassium Level 3.4 mmol/L (3.5-5.1) Chloride Level 108 mmol/L (98-107) Carbon Dioxide Level 24 mmol/L (21-32) Anion Gap 8 (6-14) Blood Urea Nitrogen 6 mg/dL (7-20) Creatinine 0.3 mg/dL (0.6-1.0) Estimated GFR (Cockcroft-Gault) 245.2 BUN/Creatinine Ratio 20 (6-20) Glucose Level 88 mg/dL (70-99) Calcium Level 7.8 mg/dL (8.5-10.1) Total Bilirubin 4.3 mg/dL (0.2-1.0) Aspartate Amino Transf (AST/SGOT) 127 U/L (15-37) Alanine Aminotransferase (ALT/SGPT) 35 U/L (14-59) Alkaline Phosphatase 88 U/L (46-116) Total Protein 5.6 g/dL (6.4-8.2) Albumin 1.9 g/dL (3.4-5.0) Albumin/Globulin Ratio 0.5 (1.0-1.7) Test 12/01/20 07:25 Glucose (Fingerstick) 100 mg/dL (70-99) Comment Review of Relevant I have reviewed the following items josue (where applicable) has been applied. Medications: Current Medications Medications (Trade) Dose Ordered Sig/Saud Route PRN Reason Start Time Stop Time Status Last Admin Dose Admin Pantoprazole Sodium (Protonix) 40 mg DAILYAC PO 12/01/20 07:30 12/01/20 08:44 Potassium Chloride (Klor-Con) 20 meq DAILYWBKFT PO 11/30/20 12:30 12/01/20 08:43 Magnesium Sulfate 50 ml @ 25 mls/hr 1X ONCE IV 11/30/20 13:00 11/30/20 14:59 DC 11/30/20 12:49 Fluoxetine HCl (PROzac) 20 mg BID PO 11/30/20 21:00 12/01/20 08:43 Justifications for Admission General Conditions Poss tachycardia?: Yes Justification for admission: Patient has tachycardia (> 100 beats per minute) which is not readily corrected by appropriate treatment within 12 to 24 hours. Poss Metaboilic Acidosis?: Yes Justification for admission: Patient has tachycardia (> 100 beats per minute) or hypotension (SBP < 90 mm Hg) leading to inadequate systemic perfusion as indicated by metabolic acidosis with arterial pH of less than 7.35. Altered mental status?: Yes Justification of admission: Patient has tachycardia (> 100 beats per minute) or hypotension (SBP < 90 mm Hg) leading to inadequate systemic perfusion as indicated by severe/persistent altered mental status. Other Justification RELL MDCANIEL MD Dec 01, 2020 11:49
[2020-12-01] MEDS ORDERED: LORazepam 0.5 MG TABLET PO PRN (12:15)
--- NOTE | 2020-12-01 12:15 | PDOC ---
Date of Service: DATE: 12/01/20 TIME: 12:11 Subjective: Subjective: Feels better - tolerating diet, stooling. Has been to treatment for alcohol in the past, then started again. Has Ensure at home - doesn't eat much as a rule w/ gastric bypass history. Objective: Vital Signs: Vital Signs Date Time Temp Pulse Resp B/P (MAP) Pulse Ox O2 Delivery O2 Flow Rate FiO2 12/01/20 11:00 99.1 92 16 158/84 (108) 98 Room Air 99.1 12/01/20 03:00 2.0 Labs: Laboratory Tests Test 11/30/20 16:48 11/30/20 20:30 12/01/20 05:25 12/01/20 07:25 Glucose (Fingerstick) 103 mg/dL 91 mg/dL 100 mg/dL White Blood Count 6.0 x10^3/uL Red Blood Count 2.36 x10^6/uL Hemoglobin 7.6 g/dL Hematocrit 23.7 % Mean Corpuscular Volume 101 fL Mean Corpuscular Hemoglobin 32 pg Mean Corpuscular Hemoglobin Concent 32 g/dL Red Cell Distribution Width 27.3 % Platelet Count 104 x10^3/uL Neutrophils (%) (Auto) 68 % Lymphocytes (%) (Auto) 20 % Monocytes (%) (Auto) 8 % Eosinophils (%) (Auto) 3 % Basophils (%) (Auto) 1 % Neutrophils # (Auto) 4.1 x10^3/uL Lymphocytes # (Auto) 1.2 x10^3/uL Monocytes # (Auto) 0.5 x10^3/uL Eosinophils # (Auto) 0.2 x10^3/uL Basophils # (Auto) 0.0 x10^3/uL Sodium Level 140 mmol/L Potassium Level 3.4 mmol/L Chloride Level 108 mmol/L Carbon Dioxide Level 24 mmol/L Anion Gap 8 Blood Urea Nitrogen 6 mg/dL Creatinine 0.3 mg/dL Estimated GFR (Cockcroft-Gault) 245.2 BUN/Creatinine Ratio 20 Glucose Level 88 mg/dL Calcium Level 7.8 mg/dL Total Bilirubin 4.3 mg/dL Aspartate Amino Transf (AST/SGOT) 127 U/L Alanine Aminotransferase (ALT/SGPT) 35 U/L Alkaline Phosphatase 88 U/L Total Protein 5.6 g/dL Albumin 1.9 g/dL Albumin/Globulin Ratio 0.5 BLOOD CULTURE Preliminary NO GROWTH AFTER 4 DAYS PE: GEN: NAD - up in chair LUNGS: CTAB HEART: RRR ABD: soft, non-tender NEURO/PSYCH: A & O 3 - much brighter today A/P: Alcoholic liver disease Anemia H/o gastric bypass, ulcers -- Much better today. Encouraged abstinence. Her supportive father is here today and lets me know that she's "been told all that before." Continue Xifaxan and PPI, careful w/ ibuprofen w/ gastric bypass/anastomotic ulcer history, consider addition of Carafate. Justicifation of Admission Dx: Justifications for Admission: Justification of Admission Dx: Yes Sepsis: Altered Mental Status Altered Mental Status: Altered Mental Status CHAVA DUKE Dec 01, 2020 12:15
[2020-12-01 15:00] VITALS: BP 151/88
[2020-12-01] MEDS: LACTOBACILLUS RHAMNOSUS GG 1 CAPSULE. PO SCH ×2 (15:13→21:29)
[2020-12-01] MEDS: GABAPENTIN 100 MG CAPSULE. PO SCH ×2 (15:13→21:29)
[2020-12-01 19:47] VITALS: BP 152/85
[2020-12-01] MEDS: fentaNYL PF VIAL 100 MCG/2 ML VIAL IV PRN (21:35)
[2020-12-01 23:29] VITALS: BP 156/92
[2020-12-02 03:10] VITALS: BP 153/83
[2020-12-02] MEDS: IBUPROFEN 200 MG TABLET. PO PRN (06:35)
[2020-12-02 06:36] LABS: BASO # 0.1 x10^3/uL (0.0-0.2); BASO % 1 % (0-3); EOS # 0.3 x10^3/uL (0.0-0.7); EOS % 4 % (0-3); HEMATOCRIT 26.1 % (36.0-47.0); HEMOGLOBIN 8.4 g/dL (12.0-15.5); LYMPH # 1.4 x10^3/uL (1.0-4.8); LYMPH % 21 % (24-48); MEAN CORPUSCULAR HEMOGLOBIN 32 pg (25-35); MEAN CORPUSCULAR HGB CONC 32 g/dL (31-37); MEAN CORPUSCULAR VOLUME 101 fL (79-100); MONO # 0.5 x10^3/uL (0.0-1.1); MONO % 8 % (0-9); NEUT # 4.3 x10^3/uL (1.8-7.7); NEUT % 66 % (31-73); PLATELET COUNT 152 x10^3/uL (140-400); RED BLOOD COUNT 2.59 x10^6/uL (3.50-5.40); RED CELL DISTRIBUTION WIDTH 27.1 % (11.5-14.5); WHITE BLOOD COUNT 6.6 x10^3/uL (4.0-11.0)
[2020-12-02] MEDS ORDERED: TRAM50TA PO (06:37)
[2020-12-02] MEDS ORDERED: MULT-445 PO (06:37)
[2020-12-02 06:54] LABS: ALBUMIN 2.4 g/dL (3.4-5.0); ALBUMIN/GLOBULIN RATIO 0.6 (1.0-1.7); CALCIUM 8.3 mg/dL (8.5-10.1); CREATININE 0.4 mg/dL (0.6-1.0); GFR 175.9; POTASSIUM 3.6 mmol/L (3.5-5.1); TOTAL BILIRUBIN 4.7 mg/dL (0.2-1.0); TOTAL PROTEIN 6.6 g/dL (6.4-8.2)
[2020-12-02 07:25] VITALS: BP 145/76
[2020-12-02] MEDS: INSULIN LISPRO 300 UNITS/3 ML VIAL. SQ SCH ×4 (07:30→21:00)
--- NOTE | 2020-12-02 08:08 | PDOC ---
Infectious Disease Note Subjective: Subjective Pt without complaints Vital Signs: Vital Signs Vital Signs Date Time Temp Pulse Resp B/P (MAP) Pulse Ox O2 Delivery O2 Flow Rate FiO2 12/02/20 07:25 99.0 90 18 145/76 (99) 99 Room Air 99.0 Physical Exam: PHYSICAL EXAM GENERAL: Awake alert HEENT: PERRL,EOMI Oral cavity is dry. NECK: Supple. LUNGS: Clear bilaterally. labored. HEART: S1, S2. No murmurs. Regular. ABDOMEN: Obese, soft, Bowel sounds present EXTREMITIES: Edema present no cyanosis. DERMATOLOGIC: No generalized rash. Multiple tattoos. CENTRAL NERVOUS SYSTEM: Alert awake RUE PICC line (11/20), some bruising present. Medications: Inpatient Meds: Medications reviewed. Labs: Lab Laboratory Tests Test 12/01/20 16:37 12/01/20 20:28 12/02/20 06:30 12/02/20 07:13 Glucose (Fingerstick) 125 mg/dL (70-99) 112 mg/dL (70-99) 94 mg/dL (70-99) White Blood Count 6.6 x10^3/uL (4.0-11.0) Red Blood Count 2.59 x10^6/uL (3.50-5.40) Hemoglobin 8.4 g/dL (12.0-15.5) Hematocrit 26.1 % (36.0-47.0) Mean Corpuscular Volume 101 fL (79-100) Mean Corpuscular Hemoglobin 32 pg (25-35) Mean Corpuscular Hemoglobin Concent 32 g/dL (31-37) Red Cell Distribution Width 27.1 % (11.5-14.5) Platelet Count 152 x10^3/uL (140-400) Neutrophils (%) (Auto) 66 % (31-73) Lymphocytes (%) (Auto) 21 % (24-48) Monocytes (%) (Auto) 8 % (0-9) Eosinophils (%) (Auto) 4 % (0-3) Basophils (%) (Auto) 1 % (0-3) Neutrophils # (Auto) 4.3 x10^3/uL (1.8-7.7) Lymphocytes # (Auto) 1.4 x10^3/uL (1.0-4.8) Monocytes # (Auto) 0.5 x10^3/uL (0.0-1.1) Eosinophils # (Auto) 0.3 x10^3/uL (0.0-0.7) Basophils # (Auto) 0.1 x10^3/uL (0.0-0.2) Sodium Level 137 mmol/L (136-145) Potassium Level 3.6 mmol/L (3.5-5.1) Chloride Level 106 mmol/L (98-107) Carbon Dioxide Level 23 mmol/L (21-32) Anion Gap 8 (6-14) Blood Urea Nitrogen 4 mg/dL (7-20) Creatinine 0.4 mg/dL (0.6-1.0) Estimated GFR (Cockcroft-Gault) 175.9 BUN/Creatinine Ratio 10 (6-20) Glucose Level 97 mg/dL (70-99) Calcium Level 8.3 mg/dL (8.5-10.1) Total Bilirubin 4.7 mg/dL (0.2-1.0) Aspartate Amino Transf (AST/SGOT) 137 U/L (15-37) Alanine Aminotransferase (ALT/SGPT) 39 U/L (14-59) Alkaline Phosphatase 96 U/L (46-116) Total Protein 6.6 g/dL (6.4-8.2) Albumin 2.4 g/dL (3.4-5.0) Albumin/Globulin Ratio 0.6 (1.0-1.7) Objective: Assessment: Sepsis resolved Fever resolved Possible aspiration Portosystemic encephalopathy improved Acute liver failure, likely from alcoholism with hyperbilirubinemia. Improved Acute renal failure. Improved Anemia. Status post PRBC Coagulopathy. Protein-calorie malnutrition. History of gastroesophageal reflux disease, GI bleed, gastritis, pancreatitis, peptic ulcer disease. History of anxiety and depression. Hydropic gallbladder with hepatic steatosis. Femoral line removed Diarrhea on lactulose UC [place] albicans Wood catheter changed Plan: Plan of Care Continue Augmentin for total 5 days Maintain aspiration precautions. DAGMAR MALCOLM MD December 02, 2020 08:08
[2020-12-02] MEDS: THIAMINE 100 MG TABLET. PEG SCH (10:42)
[2020-12-02] MEDS: rifAXIMin 550 MG TABLET PO SCH ×2 (10:42→20:36)
[2020-12-02] MEDS: POTASSIUM CHLORIDE 20 MEQ TABLET.ER. PO SCH (10:42)
[2020-12-02] MEDS: FOLIC ACID 1 MG TABLET. PEG SCH (10:42)
[2020-12-02] MEDS: AMOXICILLIN/K CLAV 875/125MG TABLET. PO SCH ×2 (10:42→20:36)
[2020-12-02] MEDS: MULTIVITAMINS,THERAPEUTIC 5 ML ORAL LIQUID. PEG SCH (10:43)
[2020-12-02] MEDS: PANTOPRAZOLE 40 MG TABLET.DR. PO SCH (10:43)
[2020-12-02] MEDS: amLODIPine BESYLATE 10 MG TABLET PO SCH (10:43)
[2020-12-02] MEDS: FLUoxetine HCL 20 MG CAPSULE PO SCH ×2 (10:43→20:36)
[2020-12-02] MEDS: LACTOBACILLUS RHAMNOSUS GG 1 CAPSULE. PO SCH ×2 (10:47→20:36)
[2020-12-02] MEDS: fentaNYL PF VIAL 100 MCG/2 ML VIAL IV PRN (10:47)
[2020-12-02] MEDS: GABAPENTIN 100 MG CAPSULE. PO SCH ×3 (10:47→20:36)
[2020-12-02 11:00] VITALS: BP 164/100
--- NOTE | 2020-12-02 13:55 | PDOC ---
[employer] PROGRESS NOTE Date of Service DOS: DATE: 12/02/20 TIME: 13:52 Chief Complaint Chief Complaint A/P: Acute hepatic encephalopathy Acute liver failure, likely from alcoholism with hyperbilirubinemia. Improving slowly Acute renal failure. Anemia. Status post PRBC Coagulopathy. Severe Protein-calorie malnutrition. History of gastroesophageal reflux disease, GI bleed, gastritis, pancreatitis, peptic ulcer disease. History of anxiety and depression. Hydropic gallbladder with hepatic steatosis. Sepsis - urine with sydney, likely some element of aspiration pneumonitis/pneumonia as well Diarrhea on lactulose UC Sydney albicans Pulmonary infiltrates History of Present Illness History of Present Illness Afebrile. Feels a little stronger. Appetite is still low. Bilirubin 4.7 today 12/01: Much less confused today. Father is visiting. Moving with full assistance to chair, feeling a bit stronger. Labs improved. Wishes for acute rehab rehab 11/30: Less confused today. Her father is visiting. She pulled her NG tube out overnight but she did eat breakfast. Electrolyte replaced by nephrology. Hemoglobin 7.1 today. Long discussion with alcohol cessation undertaken. She wants to stop drinking vodka has been alcohol rehab twice. 11/29: Still confused. Seen bedside NG tube and on GT feeds. Able to pass swallow evaluation with [employer]. Potassium 3 mag 1.7. She still little confused but does recall that she is at [place] upon prompting. 11/28/2020 Patient seen and examined in ICU Spoke with nursing, chart reviewed Patient depressed some 11/27/2020 Patient seen and examined in ICU. She tried to speak more today than she has previously, but not able to understand her very well Spoke to nursing chart reviewed 11/26/2020 Patient seen and examined in ICU. Patient was awake but did not talk. Spoke with Rene, the patient's . She has spoken some words to him. Spoke with RN. NG feeding 40cc/hr. 11/25/2020 Patient seen and examined in ICU Remains extremely encephalopathic Spoke with RN Spoke with patient's on the phone, he is distraught over her condition. Blood pressure still high Fever today of 100.6. 11/24/2020 Patient seen and examined in the ICU She remains extremely encephalopathic Eyes open but does not really make eye contact Discussed with RN Her pressures are running high Have added an IV labetalol and IV Vasotec Prognosis guarded and she is still critically ill 11/23/20 Patient seen and examined in ICU Chart review, discussed with nursing and case hardener Still visibly jaundiced, tried to speak but unable to form words Lab work improving since beginning lactulose and rifaxamin. Bilirubin down. Patient did have new onset wheezing today and spoke to nursing about starting PRN nebulizers. 11/22/20 Patient seen and examined in the ICU Chart reviewed, discussed with nursing and case hardener Still visibly jaundiced, encephalopathic, but eyes open. Anemia - 6.8. WBC count up to 81. PEG not tolerated. GI considering TPN Patient started on lactulose + rifaxamin per GI FFP being considered for coagulopathy. 11/21/20 Patient seen and examined in the ICU Chart reviewed Still visibly jaundiced Respiratory rate improved to around 25 today, was around 30-35 yesterday. Anemia improving; at Hgb of 6.6 today. Ordered 1 unit PRBC this morning. Hypothermia resolved; temp today 98.1 WBC count improved to 6. Patient now on PEG tube. Dex for sedation Octreotide drip IV Protonix Continue rectal bag Wood to BSD in place 11/20/20 Patient seen and examined in the ICU Chart reviewed She is visibly jaundiced Very anemic with HBG at 2.44 Hypothermic today with temp of 97.5 F (04:00), up from 94.4 F yesterday (20:00) White blood cells trending downward from normal, today WBC are 3.7 Dex for sedation Octreotide drip in the room IV Protonix going Continue rectal bag Wood to BSD in place 11/19/20 VERY ANEMIC, HYPOTENSIVE 11-18 MELD score on admit is 40, PROGNOSIS VERY GUARDED ECHO pending, cardiology consulted Stools slightly red per RN NH4 pending IONIZED CA 1.05 VIT D LEVEL pending 11/18/20 VERY ANEMIC, HYPOTENSIVE OVERNIGHT ECHO pending, cardiology consulted NH4 pending ID CONSULT NEUROLOGY CONSULT Gen Surg consult 11/17/20 Ms Phipps is a 40yo F w/ PMHx morbid obesity s/p gastric bypass ini 2008, alcohol use disorder, Anxiety, Depression, Hypertension, IBS, Kidney Stones, Pancreatitis, chronic back pain, and smoker who presented to [facility] ED in [place], [place] via EMS for altered mental status. Her called because patient has been on couch has been increasingly confused over the past 5 days. Per EMS report she had a fall a few days ago when she was intoxicated. EKG appears sinus tachycardia, heart rate [address] elevation or depression, no ectopy. Normal intervals. T waves unremarkable. CT chest abdomen pelvis revealed severe hepatic steatosis and cholelithiasis with hydropic gallbladder and gastric bypass, no other acute findings. CT head with no acute hemorrhage. Labs with WBC 7.5, Hb 6.4, platelets 237, Na 130, K 4.3, BUN 10, Cr 2.3, glucose 72, Trop 0, BNP 939, Albumin 1.8, INR 4.9, ammonia 44, bilirubin 11, AST 2744, ALT 400, Alk phos 172, Lipase 42 Given concern for acute liver failure and acute renal failure patient accepted for transfer to [facility] for specialist consultation. Seen bedside with her , patient following very few commands, otherwise drowsy, not oriented, moaning, not articulating well or making meaningful eye contact. notes that sometimes this might happen for a week at a time at home and frightens their 11 and 17 year old children. He notes "it has been a rough year". [facility] after a DUI and parole violation of intoxication with alcohol that led to her [facility] [place] [facility] [place]. She has stru ggled with substance use disorder, specifically alcohol, according to her since her gastric bypass in 2008, has been previously treated for this as well as pancreatitis. Admitted to ICU for further treatment. Due to the inability to maintain a giuseppe pheral IV and concern for potential uncontrollable bleeding in the neck a right femoral central venous catheter was placed for medications, blood transfusion and lab draw purposes for frequent lab draws. Vitals/I&O Vitals/I&O: Vital Signs Date Time Temp Pulse Resp B/P (MAP) Pulse Ox O2 Delivery O2 Flow Rate FiO2 12/02/20 11:00 98.9 110 18 164/100 (121) 97 Room Air 98.9 I & O 12/01/20 12/01/20 12/02/20 15:00 23:00 07:00 Intake Total 100 ml Output Total 250 ml 0 ml Balance -250 ml 100 ml Physical Exam Physical Exam: GENERAL: Awake alert HEENT: PERRL,EOMI Oral cavity is dry. NECK: Supple. LUNGS: Clear bilaterally. labored. HEART: S1, S2. No murmurs. Regular. ABDOMEN: Obese, soft, Bowel sounds present EXTREMITIES: Edema present no cyanosis. DERMATOLOGIC: No generalized rash. Multiple tattoos. CENTRAL NERVOUS SYSTEM: Alert awake RUE PICC line (11/20), some bruising present. General: Alert, mild distress Heart: Regular rate Lungs: Clear Abdomen: Soft, Other (obese ) Extremities: No cyanosis Skin: No breakdown, Other (Visibly jaundiced.) Labs Labs: Laboratory Tests Test 12/01/20 16:37 12/01/20 20:28 12/02/20 06:30 12/02/20 07:13 Glucose (Fingerstick) 125 mg/dL (70-99) 112 mg/dL (70-99) 94 mg/dL (70-99) White Blood Count 6.6 x10^3/uL (4.0-11.0) Red Blood Count 2.59 x10^6/uL (3.50-5.40) Hemoglobin 8.4 g/dL (12.0-15.5) Hematocrit 26.1 % (36.0-47.0) Mean Corpuscular Volume 101 fL (79-100) Mean Corpuscular Hemoglobin 32 pg (25-35) Mean Corpuscular Hemoglobin Concent 32 g/dL (31-37) Red Cell Distribution Width 27.1 % (11.5-14.5) Platelet Count 152 x10^3/uL (140-400) Neutrophils (%) (Auto) 66 % (31-73) Lymphocytes (%) (Auto) 21 % (24-48) Monocytes (%) (Auto) 8 % (0-9) Eosinophils (%) (Auto) 4 % (0-3) Basophils (%) (Auto) 1 % (0-3) Neutrophils # (Auto) 4.3 x10^3/uL (1.8-7.7) Lymphocytes # (Auto) 1.4 x10^3/uL (1.0-4.8) Monocytes # (Auto) 0.5 x10^3/uL (0.0-1.1) Eosinophils # (Auto) 0.3 x10^3/uL (0.0-0.7) Basophils # (Auto) 0.1 x10^3/uL (0.0-0.2) Sodium Level 137 mmol/L (136-145) Potassium Level 3.6 mmol/L (3.5-5.1) Chloride Level 106 mmol/L (98-107) Carbon Dioxide Level 23 mmol/L (21-32) Anion Gap 8 (6-14) Blood Urea Nitrogen 4 mg/dL (7-20) Creatinine 0.4 mg/dL (0.6-1.0) Estimated GFR (Cockcroft-Gault) 175.9 BUN/Creatinine Ratio 10 (6-20) Glucose Level 97 mg/dL (70-99) Calcium Level 8.3 mg/dL (8.5-10.1) Total Bilirubin 4.7 mg/dL (0.2-1.0) Aspartate Amino Transf (AST/SGOT) 137 U/L (15-37) Alanine Aminotransferase (ALT/SGPT) 39 U/L (14-59) Alkaline Phosphatase 96 U/L (46-116) Total Protein 6.6 g/dL (6.4-8.2) Albumin 2.4 g/dL (3.4-5.0) Albumin/Globulin Ratio 0.6 (1.0-1.7) Test 12/02/20 11:38 Glucose (Fingerstick) 106 mg/dL (70-99) Comment Review of Relevant I have reviewed the following items josue (where applicable) has been applied. Medications: Current Medications Medications (Trade) Dose Ordered Sig/Saud Route PRN Reason Start Time Stop Time Status Last Admin Dose Admin Gabapentin (Neurontin) 100 mg TID PO 12/01/20 14:00 12/02/20 10:47 Lactobacillus Rhamnosus (Culturelle) 1 cap BID PO 12/01/20 14:00 12/02/20 10:47 Justifications for Admission General Conditions Poss tachycardia?: Yes Justification for admission: Patient has tachycardia (> 100 beats per minute) which is not readily corrected by appropriate treatment within 12 to 24 hours. Poss Metaboilic Acidosis?: Yes Justification for admission: Patient has tachycardia (> 100 beats per minute) or hypotension (SBP < 90 mm Hg) leading to inadequate systemic perfusion as indicated by metabolic acidosis with arterial pH of less than 7.35. Altered mental status?: Yes Justification of admission: Patient has tachycardia (> 100 beats per minute) or hypotension (SBP < 90 mm Hg) leading to inadequate systemic perfusion as indicated by severe/persistent altered mental status. Other Justification RELL MCDANIEL MD December 02, 2020 13:55
[2020-12-02] MEDS: traMADol 50 MG TABLET PO PRN ×2 (14:54→21:00)
[2020-12-02 15:18] VITALS: BP 170/106
[2020-12-02] MEDS: LABETALOL 20 MG/4 ML DISP.SYRIN. IVP PRN (17:02)
[2020-12-02 19:00] VITALS: BP 122/77
[2020-12-02 23:12] VITALS: BP 158/83
[2020-12-03] MEDS: IBUPROFEN 200 MG TABLET. PO PRN (01:16)
[2020-12-03] MEDS: traMADol 50 MG TABLET PO PRN ×4 (02:58→22:28)
[2020-12-03 03:00] VITALS: BP 155/84
[2020-12-03 05:28] LABS: BASO % 1 % (0-3); EOS # 0.3 x10^3/uL (0.0-0.7); EOS % 5 % (0-3); HEMOGLOBIN 7.3 g/dL (12.0-15.5); LYMPH # 1.3 x10^3/uL (1.0-4.8); LYMPH % 24 % (24-48); MEAN CORPUSCULAR HEMOGLOBIN 32 pg (25-35); MEAN CORPUSCULAR HGB CONC 32 g/dL (31-37); MEAN CORPUSCULAR VOLUME 100 fL (79-100); MONO # 0.5 x10^3/uL (0.0-1.1); MONO % 9 % (0-9); NEUT # 3.4 x10^3/uL (1.8-7.7); NEUT % 62 % (31-73); PLATELET COUNT 162 x10^3/uL (140-400); RED BLOOD COUNT 2.31 x10^6/uL (3.50-5.40); RED CELL DISTRIBUTION WIDTH 26.1 % (11.5-14.5); WHITE BLOOD COUNT 5.5 x10^3/uL (4.0-11.0)
[2020-12-03 05:50] LABS: ALBUMIN 2.1 g/dL (3.4-5.0); ALBUMIN/GLOBULIN RATIO 0.6 (1.0-1.7); CREATININE 0.4 mg/dL (0.6-1.0); GFR 175.9; POTASSIUM 3.7 mmol/L (3.5-5.1); TOTAL BILIRUBIN 3.9 mg/dL (0.2-1.0); TOTAL PROTEIN 5.8 g/dL (6.4-8.2)
[2020-12-03] MEDS: INSULIN LISPRO 300 UNITS/3 ML VIAL. SQ SCH ×4 (07:30→21:00)
[2020-12-03 07:34] VITALS: BP 133/80
--- NOTE | 2020-12-03 08:38 | PDOC ---
Infectious Disease Note Subjective: Subjective Pt without complaints T-max 99.8 Vital Signs: Vital Signs Vital Signs Date Time Temp Pulse Resp B/P (MAP) Pulse Ox O2 Delivery O2 Flow Rate FiO2 12/03/20 07:34 99.1 86 18 133/80 (97) 96 Room Air 99.1 12/03/20 03:00 2.0 Physical Exam: PHYSICAL EXAM GENERAL: Awake alert, looks better HEENT: PERRL,EOMI Oral cavity is dry. NECK: Supple. LUNGS: Clear bilaterally. labored. HEART: S1, S2. No murmurs. Regular. ABDOMEN: Obese, soft, Bowel sounds present EXTREMITIES: Edema present no cyanosis. DERMATOLOGIC: No generalized rash. Multiple tattoos. CENTRAL NERVOUS SYSTEM: Alert awake, grossly nonfocal Medications: Inpatient Meds: Medications reviewed. Labs: Lab Laboratory Tests Test 12/02/20 11:38 12/02/20 16:41 12/02/20 21:01 12/03/20 05:10 Glucose (Fingerstick) 106 mg/dL (70-99) 92 mg/dL (70-99) 93 mg/dL (70-99) White Blood Count 5.5 x10^3/uL (4.0-11.0) Red Blood Count 2.31 x10^6/uL (3.50-5.40) Hemoglobin 7.3 g/dL (12.0-15.5) Hematocrit 23.0 % (36.0-47.0) Mean Corpuscular Volume 100 fL (79-100) Mean Corpuscular Hemoglobin 32 pg (25-35) Mean Corpuscular Hemoglobin Concent 32 g/dL (31-37) Red Cell Distribution Width 26.1 % (11.5-14.5) Platelet Count 162 x10^3/uL (140-400) Neutrophils (%) (Auto) 62 % (31-73) Lymphocytes (%) (Auto) 24 % (24-48) Monocytes (%) (Auto) 9 % (0-9) Eosinophils (%) (Auto) 5 % (0-3) Basophils (%) (Auto) 1 % (0-3) Neutrophils # (Auto) 3.4 x10^3/uL (1.8-7.7) Lymphocytes # (Auto) 1.3 x10^3/uL (1.0-4.8) Monocytes # (Auto) 0.5 x10^3/uL (0.0-1.1) Eosinophils # (Auto) 0.3 x10^3/uL (0.0-0.7) Basophils # (Auto) 0.0 x10^3/uL (0.0-0.2) Sodium Level 141 mmol/L (136-145) Potassium Level 3.7 mmol/L (3.5-5.1) Chloride Level 106 mmol/L (98-107) Carbon Dioxide Level 25 mmol/L (21-32) Anion Gap 10 (6-14) Blood Urea Nitrogen 4 mg/dL (7-20) Creatinine 0.4 mg/dL (0.6-1.0) Estimated GFR (Cockcroft-Gault) 175.9 BUN/Creatinine Ratio 10 (6-20) Glucose Level 81 mg/dL (70-99) Calcium Level 8.0 mg/dL (8.5-10.1) Total Bilirubin 3.9 mg/dL (0.2-1.0) Aspartate Amino Transf (AST/SGOT) 126 U/L (15-37) Alanine Aminotransferase (ALT/SGPT) 36 U/L (14-59) Alkaline Phosphatase 83 U/L (46-116) Total Protein 5.8 g/dL (6.4-8.2) Albumin 2.1 g/dL (3.4-5.0) Albumin/Globulin Ratio 0.6 (1.0-1.7) Test 12/03/20 07:15 Glucose (Fingerstick) 81 mg/dL (70-99) Objective: Assessment: Sepsis resolved Fever resolved Possible aspiration Portosystemic encephalopathy improved Acute liver failure, likely from alcoholism with hyperbilirubinemia. Improved Acute renal failure. Improved Anemia. Status post PRBC Coagulopathy. Protein-calorie malnutrition. History of gastroesophageal reflux disease, GI bleed, gastritis, pancreatitis, peptic ulcer disease. History of anxiety and depression. Hydropic gallbladder with hepatic steatosis. Femoral line removed Diarrhea on lactulose UC Taina albicans Wood catheter changed Plan: Plan of Care Continue Augmentin for total 5 days Maintain aspiration precautions. We will sign off Call ID lead consultant if any questions DAGMAR MALCOLM MD December 03, 2020 08:38
[2020-12-03] MEDS: THIAMINE 100 MG TABLET. PEG SCH (08:53)
[2020-12-03] MEDS: PANTOPRAZOLE 40 MG TABLET.DR. PO SCH (08:53)
[2020-12-03] MEDS: POTASSIUM CHLORIDE 20 MEQ TABLET.ER. PO SCH (08:54)
[2020-12-03] MEDS: MULTIVITAMIN with MINERAL TABLET. PO SCH (08:54)
[2020-12-03] MEDS: amLODIPine BESYLATE 10 MG TABLET PO SCH (08:54)
[2020-12-03] MEDS: FLUoxetine HCL 20 MG CAPSULE PO SCH ×2 (08:54→22:25)
[2020-12-03] MEDS: AMOXICILLIN/K CLAV 875/125MG TABLET. PO SCH ×2 (08:54→22:25)
[2020-12-03] MEDS: FOLIC ACID 1 MG TABLET. PEG SCH (08:54)
[2020-12-03] MEDS: LACTOBACILLUS RHAMNOSUS GG 1 CAPSULE. PO SCH ×2 (08:54→22:25)
[2020-12-03] MEDS: rifAXIMin 550 MG TABLET PO SCH ×2 (08:54→22:25)
[2020-12-03] MEDS: GABAPENTIN 100 MG CAPSULE. PO SCH ×3 (08:54→22:25)
[2020-12-03 11:00] VITALS: BP 141/83
--- NOTE | 2020-12-03 12:29 | PDOC ---
[employer] PROGRESS NOTE Date of Service DOS: DATE: 12/03/20 TIME: 12:29 Chief Complaint Chief Complaint A/P: Acute hepatic encephalopathy Acute liver failure, likely from alcoholism with hyperbilirubinemia. Improving slowly Acute renal failure. Anemia. Status post PRBC Coagulopathy. Severe Protein-calorie malnutrition. History of gastroesophageal reflux disease, GI bleed, gastritis, pancreatitis, peptic ulcer disease. History of anxiety and depression. Hydropic gallbladder with hepatic steatosis. Sepsis - urine with sydney, likely some element of aspiration pneumonitis/pneumonia as well Diarrhea on lactulose UC Sydney albicans Pulmonary infiltrates History of Present Illness History of Present Illness Afebrile. Still very weak thinks she might be stronger. Still with decreased appetite, bilirubin 3.9. Discussed with bedside the need acute rehab and needs alcohol rehab resources. 12/02: Afebrile. Feels a little stronger. Appetite is still low. Bilirubin 4.7 today 12/01: Much less confused today. Father is visiting. Moving with full assistance to chair, feeling a bit stronger. Labs improved. Wishes for acute rehab rehab 11/30: Less confused today. Her father is visiting. She pulled her NG tube out overnight but she did eat breakfast. Electrolyte replaced by nephrology. Hemoglobin 7.1 today. Long discussion with alcohol cessation undertaken. She wants to stop drinking vodka has been alcohol rehab twice. 11/29: Still confused. Seen bedside NG tube and on GT feeds. Able to pass swallow evaluation with [employer] PROFESSOR. Potassium 3 mag 1.7. She still little confused but does recall that she is at [place] upon prompting. 11/28/2020 Patient seen and examined in ICU Spoke with nursing, chart reviewed Patient depressed some 11/27/2020 Patient seen and examined in ICU. She tried to speak more today than she has previously, but not able to understand her very well Spoke to nursing chart reviewed 11/26/2020 Patient seen and examined in ICU. Patient was awake but did not talk. Spoke with Rene, the patient's . She has spoken some words to him. Spoke with RN. NG feeding 40cc/hr. 11/25/2020 Patient seen and examined in ICU Remains extremely encephalopathic Spoke with RN Spoke with patient's on the phone, he is distraught over her condition. Blood pressure still high Fever today of 100.6. 11/24/2020 Patient seen and examined in the ICU She remains extremely encephalopathic Eyes open but does not really make eye contact Discussed with RN Her pressures are running high Have added an IV labetalol and IV Vasotec Prognosis guarded and she is still critically ill 11/23/20 Patient seen and examined in ICU Chart review, discussed with nursing and registered nurse hh case manager Still visibly jaundiced, tried to speak but unable to form words Lab work improving since beginning lactulose and rifaxamin. Bilirubin down. Patient did have new onset wheezing today and spoke to nursing about starting PRN nebulizers. 11/22/20 Patient seen and examined in the ICU Chart reviewed, discussed with nursing and registered nurse hh case manager Still visibly jaundiced, encephalopathic, but eyes open. Anemia - 6.8. WBC count up to 81. PEG not tolerated. GI considering TPN Patient started on lactulose + rifaxamin per GI FFP being considered for coagulopathy. 11/21/20 Patient seen and examined in the ICU Chart reviewed Still visibly jaundiced Respiratory rate improved to around 25 today, was around 30-35 yesterday. Anemia improving; at Hgb of 6.6 today. Ordered 1 unit PRBC this morning. Hypothermia resolved; temp today 98.1 WBC count improved to 6. Patient now on PEG tube. Dex for sedation Octreotide drip IV Protonix Continue rectal bag Wood to BSD in place 11/20/20 Patient seen and examined in the ICU Chart reviewed She is visibly jaundiced Very anemic with HBG at 2.44 Hypothermic today with temp of 97.5 F (04:00), up from 94.4 F yesterday (20:00) White blood cells trending downward from normal, today WBC are 3.7 Dex for sedation Octreotide drip in the room IV Protonix going Continue rectal bag Wood to BSD in place 11/19/20 VERY ANEMIC, HYPOTENSIVE 11-18 MELD score on admit is 40, PROGNOSIS VERY GUARDED ECHO pending, cardiology consulted Stools slightly red per RN NH4 pending IONIZED CA 1.05 VIT D LEVEL pending 11/18/20 VERY ANEMIC, HYPOTENSIVE OVERNIGHT ECHO pending, cardiology consulted NH4 pending ID CONSULT NEUROLOGY CONSULT Gen Surg consult 11/17/20 Ms Phipps is a 40yo F w/ PMHx morbid obesity s/p gastric bypass ini 2008, alcohol use disorder, Anxiety, Depression, Hypertension, IBS, Kidney Stones, Pancreatitis, chronic back pain, and smoker who presented to [facility] ED in [place], [place] via EMS for altered mental status. Her called because patient has been on couch has been increasingly confused over the past 5 days. Per EMS report she had a fall a few days ago when she was intoxicated. EKG appears sinus tachycardia, heart rate [address] elevation or depression, no ectopy. Normal intervals. T waves unremarkable. CT chest abdomen pelvis revealed severe hepatic steatosis and cholelithiasis with hydropic gallbladder and gastric bypass, no other acute findings. CT head with no acute hemorrhage. Labs with WBC 7.5, Hb 6.4, platelets 237, Na 130, K 4.3, BUN 10, Cr 2.3, glucose 72, Trop 0, BNP 939, Albumin 1.8, INR 4.9, ammonia 44, bilirubin 11, AST 2744, ALT 400, Alk phos 172, Lipase 42 Given concern for acute liver failure and acute renal failure patient accepted for transfer to [facility] for specialist consultation. Seen bedside with her , patient following very few commands, otherwise drowsy, not oriented, moaning, not articulating well or making meaningful eye contact. notes that sometimes this might happen for a week at a time at home and frightens their 11 and 17 year old children. He notes "it has been a rough year". She was [facility] after a DUI and parole violation of intoxication with alcohol that led to her serving 17 [place] [facility] [place]. She has struggled with substance use disorder, specifically alcohol, according to her since her gastric bypass in 2008, has been previously treated for this as well as pancreatitis. Admitted to ICU for further treatment. Due to the inability to maintain a peripheral IV and concern for potential uncontrollable bleeding in the neck a right femoral central venous catheter was placed for medications, blood transfusion and lab draw purposes for frequent lab draws. Vitals/I&O Vitals/I&O: Vital Signs Date Time Temp Pulse Resp B/P (MAP) Pulse Ox O2 Delivery O2 Flow Rate FiO2 12/03/20 11:00 99.1 91 20 141/83 (102) 98 Room Air 99.1 12/03/20 03:00 2.0 I & O 12/02/20 12/02/20 12/03/20 15:00 23:00 07:00 Intake Total 240 ml 200 ml 360 ml Balance 240 ml 200 ml 360 ml Physical Exam Physical Exam: GENERAL: Awake alert, looks better HEENT: PERRL,EOMI Oral cavity is dry. NECK: Supple. LUNGS: Clear bilaterally. labored. HEART: S1, S2. No murmurs. Regular. ABDOMEN: Obese, soft, Bowel sounds present EXTREMITIES: Edema present no cyanosis. DERMATOLOGIC: No generalized rash. Multiple tattoos. CENTRAL NERVOUS SYSTEM: Alert awake, grossly nonfocal General: Alert, mild distress Heart: Regular rate Lungs: Clear Abdomen: Soft, Other (obese ) Extremities: No cyanosis Skin: No breakdown, Other (Visibly jaundiced.) Labs Labs: Laboratory Tests Test 12/02/20 16:41 12/02/20 21:01 12/03/20 05:10 12/03/20 07:15 Glucose (Fingerstick) 92 mg/dL (70-99) 93 mg/dL (70-99) 81 mg/dL (70-99) White Blood Count 5.5 x10^3/uL (4.0-11.0) Red Blood Count 2.31 x10^6/uL (3.50-5.40) Hemoglobin 7.3 g/dL (12.0-15.5) Hematocrit 23.0 % (36.0-47.0) Mean Corpuscular Volume 100 fL (79-100) Mean Corpuscular Hemoglobin 32 pg (25-35) Mean Corpuscular Hemoglobin Concent 32 g/dL (31-37) Red Cell Distribution Width 26.1 % (11.5-14.5) Platelet Count 162 x10^3/uL (140-400) Neutrophils (%) (Auto) 62 % (31-73) Lymphocytes (%) (Auto) 24 % (24-48) Monocytes (%) (Auto) 9 % (0-9) Eosinophils (%) (Auto) 5 % (0-3) Basophils (%) (Auto) 1 % (0-3) Neutrophils # (Auto) 3.4 x10^3/uL (1.8-7.7) Lymphocytes # (Auto) 1.3 x10^3/uL (1.0-4.8) Monocytes # (Auto) 0.5 x10^3/uL (0.0-1.1) Eosinophils # (Auto) 0.3 x10^3/uL (0.0-0.7) Basophils # (Auto) 0.0 x10^3/uL (0.0-0.2) Sodium Level 141 mmol/L (136-145) Potassium Level 3.7 mmol/L (3.5-5.1) Chloride Level 106 mmol/L (98-107) Carbon Dioxide Level 25 mmol/L (21-32) Anion Gap 10 (6-14) Blood Urea Nitrogen 4 mg/dL (7-20) Creatinine 0.4 mg/dL (0.6-1.0) Estimated GFR (Cockcroft-Gault) 175.9 BUN/Creatinine Ratio 10 (6-20) Glucose Level 81 mg/dL (70-99) Calcium Level 8.0 mg/dL (8.5-10.1) Total Bilirubin 3.9 mg/dL (0.2-1.0) Aspartate Amino Transf (AST/SGOT) 126 U/L (15-37) Alanine Aminotransferase (ALT/SGPT) 36 U/L (14-59) Alkaline Phosphatase 83 U/L (46-116) Total Protein 5.8 g/dL (6.4-8.2) Albumin 2.1 g/dL (3.4-5.0) Albumin/Globulin Ratio 0.6 (1.0-1.7) Test 12/03/20 11:46 Glucose (Fingerstick) 91 mg/dL (70-99) Comment Review of Relevant I have reviewed the following items josue (where applicable) has been applied. Medications: Current Medications Medications (Trade) Dose Ordered Sig/Saud Route PRN Reason Start Time Stop Time Status Last Admin Dose Admin Multivitamins (Thera M Plus) 1 tab DAILY PO 12/03/20 09:00 12/03/20 08:54 Justifications for Admission General Conditions Poss tachycardia?: Yes Justification for admission: Patient has tachycardia (> 100 beats per minute) which is not readily corrected by appropriate treatment within 12 to 24 hours. Poss Metaboilic Acidosis?: Yes Justification for admission: Patient has tachycardia (> 100 beats per minute) or hypotension (SBP < 90 mm Hg) leading to inadequate systemic perfusion as indicated by metabolic acidosis with arterial pH of less than 7.35. Altered mental status?: Yes Justification of admission: Patient has tachycardia (> 100 beats per minute) or hypotension (SBP < 90 mm Hg) leading to inadequate systemic perfusion as indicated by severe/persistent altered mental status. Other Justification RELL MCDANIEL MD December 03, 2020 12:29
[2020-12-03 15:00] VITALS: BP 147/83
[2020-12-03 19:00] VITALS: BP 128/78
[2020-12-03 22:58] VITALS: BP 139/83
[2020-12-04 02:58] VITALS: BP 142/80
[2020-12-04] MEDS: traMADol 50 MG TABLET PO PRN ×4 (05:34→23:16)
[2020-12-04 06:25] LABS: BASO % 1 % (0-3); EOS # 0.3 x10^3/uL (0.0-0.7); EOS % 4 % (0-3); HEMATOCRIT 23.1 % (36.0-47.0); HEMOGLOBIN 7.4 g/dL (12.0-15.5); LYMPH # 1.4 x10^3/uL (1.0-4.8); LYMPH % 25 % (24-48); MEAN CORPUSCULAR HEMOGLOBIN 32 pg (25-35); MEAN CORPUSCULAR HGB CONC 32 g/dL (31-37); MEAN CORPUSCULAR VOLUME 99 fL (79-100); MONO # 0.5 x10^3/uL (0.0-1.1); MONO % 9 % (0-9); NEUT # 3.6 x10^3/uL (1.8-7.7); NEUT % 62 % (31-73); PLATELET COUNT 193 x10^3/uL (140-400); RED BLOOD COUNT 2.32 x10^6/uL (3.50-5.40); RED CELL DISTRIBUTION WIDTH 25.9 % (11.5-14.5); WHITE BLOOD COUNT 5.8 x10^3/uL (4.0-11.0)
[2020-12-04 06:38] LABS: ALBUMIN/GLOBULIN RATIO 0.5 (1.0-1.7); CALCIUM 7.8 mg/dL (8.5-10.1); CREATININE 0.4 mg/dL (0.6-1.0); GFR 175.9; POTASSIUM 3.2 mmol/L (3.5-5.1); TOTAL BILIRUBIN 3.6 mg/dL (0.2-1.0); TOTAL PROTEIN 5.8 g/dL (6.4-8.2)
[2020-12-04 07:00] VITALS: BP 144/80
[2020-12-04] MEDS: INSULIN LISPRO 300 UNITS/3 ML VIAL. SQ SCH ×4 (07:30→20:17)
[2020-12-04] MEDS: AMOXICILLIN/K CLAV 875/125MG TABLET. PO SCH ×2 (08:42→20:36)
[2020-12-04] MEDS: rifAXIMin 550 MG TABLET PO SCH ×2 (08:42→20:36)
[2020-12-04] MEDS: amLODIPine BESYLATE 10 MG TABLET PO SCH (08:43)
[2020-12-04] MEDS: MULTIVITAMIN with MINERAL TABLET. PO SCH (08:43)
[2020-12-04] MEDS: GABAPENTIN 100 MG CAPSULE. PO SCH ×3 (08:44→20:36)
[2020-12-04] MEDS: LACTOBACILLUS RHAMNOSUS GG 1 CAPSULE. PO SCH ×2 (08:44→20:36)
[2020-12-04] MEDS: FLUoxetine HCL 20 MG CAPSULE PO SCH ×2 (08:44→20:36)
[2020-12-04] MEDS: THIAMINE 100 MG TABLET. PEG SCH (08:44)
[2020-12-04] MEDS: FOLIC ACID 1 MG TABLET. PEG SCH (08:44)
[2020-12-04] MEDS: PANTOPRAZOLE 40 MG TABLET.DR. PO SCH (08:44)
[2020-12-04] MEDS: POTASSIUM CHLORIDE 20 MEQ TABLET.ER. PO SCH (08:44)
[2020-12-04 11:00] VITALS: BP 154/85
--- NOTE | 2020-12-04 11:50 | PDOC ---
[employer] PROGRESS NOTE Date of Service DOS: DATE: 12/04/20 TIME: 11:43 Chief Complaint Chief Complaint A/P: Acute hepatic encephalopathy Acute liver failure, likely from alcoholism with hyperbilirubinemia. Improving slowly Acute renal failure. Anemia. Status post PRBC Coagulopathy. Severe Protein-calorie malnutrition. History of gastroesophageal reflux disease, GI bleed, gastritis, pancreatitis, peptic ulcer disease. History of anxiety and depression. Hydropic gallbladder with hepatic steatosis. Sepsis - urine with sy[place], likely some element of aspiration pneumonitis/pneumonia as well Diarrhea on lactulose UC Sydney albicans Pulmonary infiltrates History of Present Illness History of Present Illness patient was seen and examined. Discussed this event as being a wake up call for her health/ ETOH consumption. Discussed plans with RN and case management. CHart reviewed. 12/03: Still with decreased appetite, bilirubin 3.9. 12/02: Afebrile. Feels a little stronger. Appetite is still low. Bilirubin 4.7 today 12/01: Much less confused today. Father is visiting. Moving with full assistance to chair, feeling a bit stronger. Labs improved. Wishes for acute rehab rehab 11/30: Less confused today. Her father is visiting. She pulled her NG tube out overnight but she did eat breakfast. Electrolyte replaced by nephrology. Hemoglobin 7.1 today. Long discussion with alcohol cessation undertaken. She wants to stop drinking vodka has been alcohol rehab twice. 11/29: Still confused. Seen bedside NG tube and on GT feeds. Able to pass s [facility] evaluation with [employer]. Potassium 3 mag 1.7. She still little confused but does recall that she is at [facility] upon prompting. 11/28/2020 Patient seen and examined in ICU Spoke with nursing, chart reviewed Patient depressed some 11/27/2020 Patient seen and examined in ICU. She tried to speak more today than she has previously, but not able to understand her very well Spoke to nursing chart reviewed 11/26/2020 Patient seen and examined in ICU. Patient was awake but did not talk. Spoke with Rene, the patient's . She has spoken some words to him. Spoke with RN. NG feeding 40cc/hr. 11/25/2020 Patient seen and examined in ICU Remains extremely encephalopathic Spoke with RN Spoke with patient's on the phone, he is distraught over her condition. Blood pressure still high Fever today of 100.6. 11/24/2020 Patient seen and examined in the ICU She remains extremely encephalopathic Eyes open but does not really make eye contact Discussed with RN Her pressures are running high Have added an IV labetalol and IV Vasotec Prognosis guarded and she is still critically ill 11/23/20 Patient seen and examined in ICU Chart review, discussed with nursing and case mgr Still visibly jaundiced, tried to speak but unable to form words Lab work improving since beginning lactulose and rifaxamin. Bilirubin down. Patient did have new onset wheezing today and spoke to nursing about starting PRN nebulizers. 11/22/20 Patient seen and examined in the ICU Chart reviewed, discussed with nursing and case mgr Still visibly jaundiced, encephalopathic, but eyes open. Anemia - 6.8. WBC count up to 81. PEG not tolerated. GI considering TPN Patient started on lactulose + rifaxamin per GI FFP being considered for coagulopathy. 11/21/20 Patient seen and examined in the ICU Chart reviewed Still visibly jaundiced Respiratory rate improved to around 25 today, was around 30-35 yesterday. Anemia improving; at Hgb of 6.6 today. Ordered 1 unit PRBC this morning. Hypothermia resolved; temp today 98.1 WBC count improved to 6. Patient now on PEG tube. Dex for sedation Octreotide drip IV Protonix Continue rectal bag Wood to BSD in place 11/20/20 Patient seen and examined in the ICU Chart reviewed She is visibly jaundiced Very anemic with HBG at 2.44 Hypothermic today with temp of 97.5 F (04:00), up from 94.4 F yesterday (20:00) White blood cells trending downward from normal, today WBC are 3.7 Dex for sedation Octreotide drip in the room IV Protonix going Continue rectal bag Wood to BSD in place 11/19/20 VERY ANEMIC, HYPOTENSIVE - MELD score on admit is 40, PROGNOSIS VERY GUARDED ECHO pending, cardiology consulted Stools slightly red per RN NH4 pending IONIZED CA 1.05 VIT D LEVEL pending 11/18/20 VERY ANEMIC, HYPOTENSIVE OVERNIGHT ECHO pending, cardiology consulted NH4 pending ID CONSULT NEUROLOGY CONSULT Gen Surg consult 11/17/20 Ms Phipps is a 40yo F w/ PMHx morbid obesity s/p gastric bypass ini 2008, alcohol use disorder, Anxiety, Depression, Hypertension, IBS, Kidney Stones, Pancreatitis, chronic back pain, and smoker who presented to [facility] ED in [place], [place] via EMS for altered mental status. Her called because patient has been on couch has been increasingly confused over the past 5 days. Per EMS report she had a fall a few days ago when she was intoxicated. EKG appears sinus tachycardia, heart rate [address] elevation or depression, no ectopy. Normal intervals. T waves unremarkable. CT chest abdomen pelvis revealed severe hepatic steatosis and cholelithiasis with hydropic gallbladder and gastric bypass, no other acute findings. CT head with no acute hemorrhage. Labs with WBC 7.5, Hb 6.4, platelets 237, Na 130, K 4.3, BUN 10, Cr 2.3, glucose 72, Trop 0, BNP 939, Albumin 1.8, INR 4.9, ammonia 44, bilirubin 11, AST 2744, A LT 400, Alk phos 172, Lipase 42 Given concern for acute liver failure and acute renal failure patient accepted for transfer to [facility] for specialist consultation. Seen bedside with her , patient following very few commands, otherwise drowsy, not oriented, moaning, not articulating well or making meaningful eye contact. notes that sometimes this might happen for a week at a time at home and frightens their 11 and 17 year old children. He notes "it has been a rough year". She was [facility] last October after a DUI and parole violation of intoxication with alcohol that led to her serving 17 months in [facility] [place]. She has struggled with substance use disorder, specifically alcohol, according to her since her gastric bypass in 2008, has been previously treated for this as well as pancreatitis. Admitted to ICU for further treatment. Due to the inability to maintain a peripheral IV and concern for potential uncontrollable bleeding in the neck a right femoral central venous catheter was placed for medications, blood transfusion and lab draw purposes for frequent lab draws. Vitals/I&O Vitals/I&O: Vital Signs Date Time Temp Pulse Resp B/P (MAP) Pulse Ox O2 Delivery O2 Flow Rate FiO2 12/04/20 11:21 16 Room Air 12/04/20 08:43 96 144/80 12/04/20 07:00 99.1 93 99.1 I & O 12/03/20 12/03/20 12/04/20 15:00 23:00 07:00 Intake Total 320 ml 200 ml Balance 320 ml 200 ml Physical Exam Physical Exam: GENERAL: Awake alert, looks better HEENT: PERRL,EOMI Oral cavity is dry. NECK: Supple. LUNGS: Clear bilaterally. labored. HEART: S1, S2. No murmurs. Regular. ABDOMEN: Obese, soft, Bowel sounds present EXTREMITIES: Edema present no cyanosis. DERMATOLOGIC: No generalized rash. Multiple tattoos. CENTRAL NERVOUS SYSTEM: Alert awake, grossly nonfocal General: Alert, mild distress Heart: Regular rate Lungs: Clear Abdomen: Soft, Other (obese ) Extremities: No cyanosis Skin: No breakdown, Other (Visibly jaundiced.) Labs Labs: Laboratory Tests Test 12/03/20 11:46 12/03/20 16:40 12/03/20 19:17 12/04/20 05:45 Glucose (Fingerstick) 91 mg/dL (70-99) 97 mg/dL (70-99) 98 mg/dL (70-99) White Blood Count 5.8 x10^3/uL (4.0-11.0) Red Blood Count 2.32 x10^6/uL (3.50-5.40) Hemoglobin 7.4 g/dL (12.0-15.5) Hematocrit 23.1 % (36.0-47.0) Mean Corpuscular Volume 99 fL (79-100) Mean Corpuscular Hemoglobin 32 pg (25-35) Mean Corpuscular Hemoglobin Concent 32 g/dL (31-37) Red Cell Distribution Width 25.9 % (11.5-14.5) Platelet Count 193 x10^3/uL (140-400) Neutrophils (%) (Auto) 62 % (31-73) Lymphocytes (%) (Auto) 25 % (24-48) Monocytes (%) (Auto) 9 % (0-9) Eosinophils (%) (Auto) 4 % (0-3) Basophils (%) (Auto) 1 % (0-3) Neutrophils # (Auto) 3.6 x10^3/uL (1.8-7.7) Lymphocytes # (Auto) 1.4 x10^3/uL (1.0-4.8) Monocytes # (Auto) 0.5 x10^3/uL (0.0-1.1) Eosinophils # (Auto) 0.3 x10^3/uL (0.0-0.7) Basophils # (Auto) 0.0 x10^3/uL (0.0-0.2) Sodium Level 142 mmol/L (136-145) Potassium Level 3.2 mmol/L (3.5-5.1) Chloride Level 109 mmol/L (98-107) Carbon Dioxide Level 23 mmol/L (21-32) Anion Gap 10 (6-14) Blood Urea Nitrogen 2 mg/dL (7-20) Creatinine 0.4 mg/dL (0.6-1.0) Estimated GFR (Cockcroft-Gault) 175.9 BUN/Creatinine Ratio 5 (6-20) Glucose Level 88 mg/dL (70-99) Calcium Level 7.8 mg/dL (8.5-10.1) Total Bilirubin 3.6 mg/dL (0.2-1.0) Aspartate Amino Transf (AST/SGOT) 122 U/L (15-37) Alanine Aminotransferase (ALT/SGPT) 32 U/L (14-59) Alkaline Phosphatase 78 U/L (46-116) Total Protein 5.8 g/dL (6.4-8.2) Albumin 2.0 g/dL (3.4-5.0) Albumin/Globulin Ratio 0.5 (1.0-1.7) Test 12/04/20 07:39 Glucose (Fingerstick) 91 mg/dL (70-99) Assessment and Plan Assessmemt and Plan A/P: Acute hepatic encephalopathy Acute liver failure, likely from alcoholism with hyperbilirubinemia. Improving slowly Acute renal failure. Anemia. Status post PRBC Coagulopathy. Severe Protein-calorie malnutrition. History of gastroesophageal reflux disease, GI bleed, gastritis, pancreatitis, peptic ulcer disease. History of anxiety and depression. Hydropic gallbladder with hepatic steatosis. Sepsis - urine with [place], likely some element of aspiration pneumonitis/pneumonia as well Diarrhea on lactulose UC [place] albicans Pulmonary infiltrates Plan: await PAT trend labs home meds full code dc disposition pending PAT Comment Review of Relevant I have reviewed the following items josue (where applicable) has been applied. Justifications for Admission General Conditions Poss tachycardia?: Yes Justification for admission: Patient has tachycardia (> 100 beats per minute) which is not readily corrected by appropriate treatment within 12 to 24 hours. Poss Metaboilic Acidosis?: Yes Justification for admission: Patient has tachycardia (> 100 beats per minute) or hypotension (SBP < 90 mm Hg) leading to inadequate systemic perfusion as indicated by metabolic acidosis with arterial pH of less than 7.35. Altered mental status?: Yes Justification of admission: Patient has tachycardia (> 100 beats per minute) or hypotension (SBP < 90 mm Hg) leading to inadequate systemic perfusion as indicated by severe/persistent altered mental status. Other Justification MOOK CHRISTOPHER III DO December 04, 2020 11:50
--- NOTE | 2020-12-04 12:31 | PDOC ---
Date of Service: DATE: 12/04/20 TIME: 12:28 Subjective: Subjective: Tolerating diet and stooling. Deciding between rehab facility or home health. Says she's never drinking alcohol again. present. Objective: Vital Signs: Vital Signs Date Time Temp Pulse Resp B/P (MAP) Pulse Ox O2 Delivery O2 Flow Rate FiO2 12/04/20 11:21 16 Room Air 12/04/20 08:43 96 144/80 12/04/20 07:00 99.1 93 99.1 Labs: Laboratory Tests Test 12/03/20 16:40 12/03/20 19:17 12/04/20 05:45 12/04/20 07:39 Glucose (Fingerstick) 97 mg/dL 98 mg/dL 91 mg/dL White Blood Count 5.8 x10^3/uL Red Blood Count 2.32 x10^6/uL Hemoglobin 7.4 g/dL Hematocrit 23.1 % Mean Corpuscular Volume 99 fL Mean Corpuscular Hemoglobin 32 pg Mean Corpuscular Hemoglobin Concent 32 g/dL Red Cell Distribution Width 25.9 % Platelet Count 193 x10^3/uL Neutrophils (%) (Auto) 62 % Lymphocytes (%) (Auto) 25 % Monocytes (%) (Auto) 9 % Eosinophils (%) (Auto) 4 % Basophils (%) (Auto) 1 % Neutrophils # (Auto) 3.6 x10^3/uL Lymphocytes # (Auto) 1.4 x10^3/uL Monocytes # (Auto) 0.5 x10^3/uL Eosinophils # (Auto) 0.3 x10^3/uL Basophils # (Auto) 0.0 x10^3/uL Sodium Level 142 mmol/L Potassium Level 3.2 mmol/L Chloride Level 109 mmol/L Carbon Dioxide Level 23 mmol/L Anion Gap 10 Blood Urea Nitrogen 2 mg/dL Creatinine 0.4 mg/dL Estimated GFR (Cockcroft-Gault) 175.9 BUN/Creatinine Ratio 5 Glucose Level 88 mg/dL Calcium Level 7.8 mg/dL Total Bilirubin 3.6 mg/dL Aspartate Amino Transf (AST/SGOT) 122 U/L Alanine Aminotransferase (ALT/SGPT) 32 U/L Alkaline Phosphatase 78 U/L Total Protein 5.8 g/dL Albumin 2.0 g/dL Albumin/Globulin Ratio 0.5 PE: GEN: NAD LUNGS: CTAB HEART: RRR ABD: S/ND/NT SKIN: +jaundice NEURO/PSYCH: A & O 3 A/P: Alcoholic liver disease - on Xifaxan BID + lactulose PRN Anemia - stable H/o gastric bypass, ulcers - on PPI - would be careful w/ ibuprofen as previously discussed -- Awaiting DC plans. Justicifation of Admission Dx: Justifications for Admission: Justification of Admission Dx: Yes Sepsis: Altered Mental Status Altered Mental Status: Altered Mental Status CHAVA DUKE December 04, 2020 12:31
--- NOTE | 2020-12-04 12:54 | PDOC ---
PROGRESS NOTES Date of Service DATE: 12/04/20 TIME: 12:53 Assessment Metabolic encephalopathy Pancreatitis, liver failure (INR 1.7 on 11/25), renal failure, pancreatitis, history of gastric bypass for obesity, sepsis, hypothermia, anemia, coagulopathy, GERD, history of GI bleed and gastritis, history of anxiety and depression, hydropic gallbladder, hepatic steatosis, protein-calorie malnutrition. Plan No additional neurological studies planned Treat medical diseases On thiamine, rifaximin; now off lactulose Objective Vital Signs Date Time Temp Pulse Resp B/P (MAP) Pulse Ox O2 Delivery O2 Flow Rate FiO2 12/04/20 11:21 16 Room Air 12/04/20 08:43 96 144/80 12/04/20 07:00 99.1 93 99.1 Intake and Output 12/04/20 07:00 Intake Total 520 ml Balance 520 ml Intake Oral 520 ml # Voids 7 PHYSICAL EXAM Jaundiced Eyes open, knows name, location, date, normal conversation PERRL. EOMI. CN: no focal findings. Muscle tone: normal. Muscle strength: 4/5 DTR: 1+ Plantar reflex: Flexor Gait: not examined in bed. Sensory exam: No abnormal findings Cerebellar: No abnormal finding Review of Relevant I have reviewed the following items josue (where applicable) has been applied. Labs Laboratory Tests Test 12/02/20 16:41 12/02/20 21:01 12/03/20 05:10 12/03/20 07:15 Glucose (Fingerstick) 92 mg/dL (70-99) 93 mg/dL (70-99) 81 mg/dL (70-99) White Blood Count 5.5 x10^3/uL (4.0-11.0) Red Blood Count 2.31 x10^6/uL (3.50-5.40) Hemoglobin 7.3 g/dL (12.0-15.5) Hematocrit 23.0 % (36.0-47.0) Mean Corpuscular Volume 100 fL (79-100) Mean Corpuscular Hemoglobin 32 pg (25-35) Mean Corpuscular Hemoglobin Concent 32 g/dL (31-37) Red Cell Distribution Width 26.1 % (11.5-14.5) Platelet Count 162 x10^3/uL (140-400) Neutrophils (%) (Auto) 62 % (31-73) Lymphocytes (%) (Auto) 24 % (24-48) Monocytes (%) (Auto) 9 % (0-9) Eosinophils (%) (Auto) 5 % (0-3) Basophils (%) (Auto) 1 % (0-3) Neutrophils # (Auto) 3.4 x10^3/uL (1.8-7.7) Lymphocytes # (Auto) 1.3 x10^3/uL (1.0-4.8) Monocytes # (Auto) 0.5 x10^3/uL (0.0-1.1) Eosinophils # (Auto) 0.3 x10^3/uL (0.0-0.7) Basophils # (Auto) 0.0 x10^3/uL (0.0-0.2) Sodium Level 141 mmol/L (136-145) Potassium Level 3.7 mmol/L (3.5-5.1) Chloride Level 106 mmol/L (98-107) Carbon Dioxide Level 25 mmol/L (21-32) Anion Gap 10 (6-14) Blood Urea Nitrogen 4 mg/dL (7-20) Creatinine 0.4 mg/dL (0.6-1.0) Estimated GFR (Cockcroft-Gault) 175.9 BUN/Creatinine Ratio 10 (6-20) Glucose Level 81 mg/dL (70-99) Calcium Level 8.0 mg/dL (8.5-10.1) Total Bilirubin 3.9 mg/dL (0.2-1.0) Aspartate Amino Transf (AST/SGOT) 126 U/L (15-37) Alanine Aminotransferase (ALT/SGPT) 36 U/L (14-59) Alkaline Phosphatase 83 U/L (46-116) Total Protein 5.8 g/dL (6.4-8.2) Albumin 2.1 g/dL (3.4-5.0) Albumin/Globulin Ratio 0.6 (1.0-1.7) Test 12/03/20 11:46 12/03/20 16:40 12/03/20 19:17 12/04/20 05:45 Glucose (Fingerstick) 91 mg/dL (70-99) 97 mg/dL (70-99) 98 mg/dL (70-99) White Blood Count 5.8 x10^3/uL (4.0-11.0) Red Blood Count 2.32 x10^6/uL (3.50-5.40) Hemoglobin 7.4 g/dL (12.0-15.5) Hematocrit 23.1 % (36.0-47.0) Mean Corpuscular Volume 99 fL (79-100) Mean Corpuscular Hemoglobin 32 pg (25-35) Mean Corpuscular Hemoglobin Concent 32 g/dL (31-37) Red Cell Distribution Width 25.9 % (11.5-14.5) Platelet Count 193 x10^3/uL (140-400) Neutrophils (%) (Auto) 62 % (31-73) Lymphocytes (%) (Auto) 25 % (24-48) Monocytes (%) (Auto) 9 % (0-9) Eosinophils (%) (Auto) 4 % (0-3) Basophils (%) (Auto) 1 % (0-3) Neutrophils # (Auto) 3.6 x10^3/uL (1.8-7.7) Lymphocytes # (Auto) 1.4 x10^3/uL (1.0-4.8) Monocytes # (Auto) 0.5 x10^3/uL (0.0-1.1) Eosinophils # (Auto) 0.3 x10^3/uL (0.0-0.7) Basophils # (Auto) 0.0 x10^3/uL (0.0-0.2) Sodium Level 142 mmol/L (136-145) Potassium Level 3.2 mmol/L (3.5-5.1) Chloride Level 109 mmol/L (98-107) Carbon Dioxide Level 23 mmol/L (21-32) Anion Gap 10 (6-14) Blood Urea Nitrogen 2 mg/dL (7-20) Creatinine 0.4 mg/dL (0.6-1.0) Estimated GFR (Cockcroft-Gault) 175.9 BUN/Creatinine Ratio 5 (6-20) Glucose Level 88 mg/dL (70-99) Calcium Level 7.8 mg/dL (8.5-10.1) Total Bilirubin 3.6 mg/dL (0.2-1.0) Aspartate Amino Transf (AST/SGOT) 122 U/L (15-37) Alanine Aminotransferase (ALT/SGPT) 32 U/L (14-59) Alkaline Phosphatase 78 U/L (46-116) Total Protein 5.8 g/dL (6.4-8.2) Albumin 2.0 g/dL (3.4-5.0) Albumin/Globulin Ratio 0.5 (1.0-1.7) Test 12/04/20 07:39 Glucose (Fingerstick) 91 mg/dL (70-99) Laboratory Tests Test 12/03/20 16:40 12/03/20 19:17 12/04/20 05:45 12/04/20 07:39 Glucose (Fingerstick) 97 mg/dL (70-99) 98 mg/dL (70-99) 91 mg/dL (70-99) White Blood Count 5.8 x10^3/uL (4.0-11.0) Red Blood Count 2.32 x10^6/uL (3.50-5.40) Hemoglobin 7.4 g/dL (12.0-15.5) Hematocrit 23.1 % (36.0-47.0) Mean Corpuscular Volume 99 fL (79-100) Mean Corpuscular Hemoglobin 32 pg (25-35) Mean Corpuscular Hemoglobin Concent 32 g/dL (31-37) Red Cell Distribution Width 25.9 % (11.5-14.5) Platelet Count 193 x10^3/uL (140-400) Neutrophils (%) (Auto) 62 % (31-73) Lymphocytes (%) (Auto) 25 % (24-48) Monocytes (%) (Auto) 9 % (0-9) Eosinophils (%) (Auto) 4 % (0-3) Basophils (%) (Auto) 1 % (0-3) Neutrophils # (Auto) 3.6 x10^3/uL (1.8-7.7) Lymphocytes # (Auto) 1.4 x10^3/uL (1.0-4.8) Monocytes # (Auto) 0.5 x10^3/uL (0.0-1.1) Eosinophils # (Auto) 0.3 x10^3/uL (0.0-0.7) Basophils # (Auto) 0.0 x10^3/uL (0.0-0.2) Sodium Level 142 mmol/L (136-145) Potassium Level 3.2 mmol/L (3.5-5.1) Chloride Level 109 mmol/L (98-107) Carbon Dioxide Level 23 mmol/L (21-32) Anion Gap 10 (6-14) Blood Urea Nitrogen 2 mg/dL (7-20) Creatinine 0.4 mg/dL (0.6-1.0) Estimated GFR (Cockcroft-Gault) 175.9 BUN/Creatinine Ratio 5 (6-20) Glucose Level 88 mg/dL (70-99) Calcium Level 7.8 mg/dL (8.5-10.1) Total Bilirubin 3.6 mg/dL (0.2-1.0) Aspartate Amino Transf (AST/SGOT) 122 U/L (15-37) Alanine Aminotransferase (ALT/SGPT) 32 U/L (14-59) Alkaline Phosphatase 78 U/L (46-116) Total Protein 5.8 g/dL (6.4-8.2) Albumin 2.0 g/dL (3.4-5.0) Albumin/Globulin Ratio 0.5 (1.0-1.7) Microbiology 11/26/20 Blood Culture - Final, Complete NO GROWTH AFTER 5 DAYS 11/22/20 Urine Culture - Final, Complete Medications Current Medications Lorazepam (Ativan Inj) 0.5 mg PRN Q6HRS PRN IVP ANXIETY / AGITATION Last admi nistered on 11/18/20at 18:10; Start 11/17/20 at 16:15; Stop 11/19/20 at 01:14; Status DC Ondansetron HCl (Zofran) 4 mg PRN Q6HRS PRN IVP NAUSEA/VOMITING, 1ST CHOICE Last administered on 11/27/20at 23:53; Start 11/17/20 at 16:15 Prochlorperazine Edisylate (Compazine) 5 mg PRN Q6HRS PRN IVP NAUSEA/VOMITING, 2ND CHOICE; Start 11/17/20 at 16:15 Info (Icu Electrolyte Protocol) 1 ea DAILY MC Last administered on 11/27/20at 06:29; Start 11/18/20 at 09:00; Stop 11/28/20 at 12:44; Status DC Sodium Chloride (Normal Saline Flush) 3 ml QSHIFT PRN IV AFTER MEDS AND BLOOD DRAWS; Start 11/17/20 at 16:15 Sodium Chloride 1,000 ml @ 1,000 mls/hr Q1H IV Last administered on 11/17/20at 17:50; Start 11/17/20 at 16:15; Stop 11/17/20 at 17:14; Status DC Fentanyl Citrate (Fentanyl 2ml Vial) 25 mcg PRN Q1HR PRN IV PAIN Last administered on 12/02/20at 10:47; Start 11/17/20 at 16:15; Stop 12/02/20 at 11:25; Status DC Lactulose (Lactulose) 20 gm PRN Q12HR PRN PO CONSTIPATION; Start 11/17/20 at 16:15; Stop 11/17/20 at 17:40; Status DC Bisacodyl (Dulcolax Supp) 10 mg PRN DAILY PRN [place] CONSTIPATION; Start 11/17/20 at 16:15 Pantoprazole Sodium (PROTONIX VIAL for IV PUSH) 40 mg DAILYAC IVP ; Start 11/18/20 at 07:30; Stop 11/17/20 at 17:40; Status DC Lactulose (LACTULOSE 300ML for RECTAL) 200 gm Q6HRS TX ; Start 11/17/20 at 18:00; Stop 11/17/20 at 17:40; Status DC Sodium Bicarbonate 75 meq/Sodium Chloride 1,075 ml @ 125 mls/hr Q8H36M IV Last administered on 11/19/20at 05:44; Start 11/17/20 at 17:00; Stop 11/19/20 at 09:16; Status DC Pantoprazole Sodium (PROTONIX VIAL for IV PUSH) 80 mg 1X ONCE IVP Last administered on 11/17/20at 17:50; Start 11/17/20 at 18:00; Stop 11/17/20 at 18:01; Status DC Pantoprazole Sodium 80 mg/ Sodium Chloride 100 ml @ 10 mls/hr Q10H IV Last administered on 11/21/20at 12:30; Start 11/17/20 at 18:00; Stop 11/21/20 at 13:52; Status DC Octreotide Acetate 500 mcg/ Sodium Chloride 101 ml @ 10.1 mls/hr CONT PRN IV SEE I/O RECORD Last administered on 11/21/20at 12:30; Start 11/17/20 at 17:30; Stop 11/21/20 at 13:52; Status DC Lactulose (LACTULOSE 300ML for RECTAL) 200 gm Q2HR TX Last administered on 11/20/20at 13:23; Start 11/17/20 at 18:00; Stop 11/20/20 at 19:16; Status DC Magnesium Sulfate 50 ml @ 25 mls/hr 1X ONCE IV Last administered on 11/17/20at 18:34; Start 11/17/20 at 18:30; Stop 11/17/20 at 20:29; Status DC Albumin Human 500 ml @ 125 mls/hr PRN DAILY PRN IV HYPOTENSION Last administered on 11/18/20at 01:47; Start 11/18/20 at 00:15 Multivitamins 10 ml/Thiamine HCl 100 mg/Folic Acid 1 mg/Sodium Chloride 1,011.2 ml @ 100 mls/ hr DAILY IV Last administered on 11/21/20at 09:17; Start 11/18/20 at 09:00; Stop 11/21/20 at 13:58; Status DC Thiamine HCl 100 mg/Dextrose 51 ml @ 100 mls/hr DAILY IV ; Start 11/23/20 at 09:00; Stop 11/27/20 at 09:31; Status Cancel Lorazepam (Ativan) 2 mg Q6H PO ; Start 11/18/20 at 08:00; Stop 11/19/20 at 01:14; Status DC Lactulose (Lactulose) 30 gm PRN DAILY PRN PO GI SYMPTOMS; Start 11/18/20 at 08:00; Status UNV Lactulose (Lactulose) 30 gm PRN DAILY PRN PO GI SYMPTOMS; Start 11/18/20 at 08:30; Status UNV Piperacillin Sod/ Tazobactam Sod (Zosyn Per Pharmacy) 1 each PRN DAILY PRN MC SEE COMMENTS; Start 11/18/20 at 12:00; Stop 11/26/20 at 13:15; Status DC Piperacillin Sod/ Tazobactam Sod 3.375 gm/Sodium Chloride 50 ml @ 100 mls/hr Q6HRS IV Last administered on 11/26/20at 12:07; Start 11/18/20 at 12:00; Stop 11/26/20 at 13:15; Status DC Phytonadione (Vitamin K Ampule) 5 mg 1X ONCE SQ Last administered on 11/18/20at 12:50; Start 11/18/20 at 12:15; Stop 11/18/20 at 12:16; Status DC Lorazepam (Ativan Inj) 2 mg PRN Q1HR PRN IV For CIWA 8-14 Last administered on 11/29/20at 00:32; Start 11/18/20 at 18:15; Stop 12/01/20 at 12:12; Status DC Potassium Chloride/Water 100 ml @ 100 mls/hr Q1H IV Last administered on 11/19/20at 09:30; Start 11/19/20 at 08:30; Stop 11/19/20 at 10:29; Status DC Magnesium Sulfate 50 ml @ 25 mls/hr PRN DAILY PRN IV for Mag < 1.7 on am labs Last administered on 11/30/20at 07:21; Start 11/19/20 at 08:30 Albumin Human 100 ml @ 100 mls/hr TID IV Last administered on 11/20/20at 22:11; Start 11/19/20 at 10:00; Stop 11/20/20 at 21:59; Status DC Lorazepam (Ativan Inj) 4 mg PRN Q1HR PRN IV For CIWA 15 or greater Last administered on 11/26/20at 16:28; Start 11/19/20 at 10:00; Stop 12/01/20 at 12:13; Status DC Dexmedetomidine HCl 400 mcg/ Sodium Chloride 100 ml @ 0 mls/hr CONT PRN IV PER PROTOCOL Last administered on 11/24/20at 11:06; Start 11/19/20 at 10:00; Stop 11/29/20 at 12:38; Status DC Sodium Chloride 500 ml @ 500 mls/hr 1X PRN PRN IV SEE COMMENTS; Start 11/19/20 at 10:00 Atropine Sulfate (ATROPINE 0.5mg SYRINGE) 0.5 mg PRN Q5MIN PRN IV SEE COMMENTS; Start 11/19/20 at 10:00; Stop 12/01/20 at 12:13; Status DC Calcium Gluconate 1000 mg/Sodium Chloride 110 ml @ 220 mls/hr 1X ONCE IV ; Start 11/19/20 at 14:00; Stop 11/19/20 at 14:29; Status UNV Calcium Gluconate 1000 mg/Sodium Chloride 110 ml @ 220 mls/hr 1X ONCE IV Last administered on 11/19/20at 14:29; Start 11/19/20 at 15:00; Stop 11/19/20 at 15:29; Status DC Potassium Chloride/Water 100 ml @ 100 mls/hr Q1H IV Last administered on 11/20/20at 16:11; Start 11/20/20 at 10:30; Stop 11/20/20 at 14:29; Status DC Lactulose (Lactulose) 20 gm QID FT Last administered on 11/26/20at 21:38; Start 11/20/20 at 17:00; Stop 11/27/20 at 11:58; Status DC Lactulose (Lactulose) 20 gm STK-MED ONCE .ROUTE ; Start 11/20/20 at 16:09; Stop 11/20/20 at 16:09; Status DC Albumin Human 100 ml @ As Directed STK-MED ONCE IV ; Start 11/20/20 at 22:06; Stop 11/20/20 at 22:07; Status DC Lactulose (Lactulose) 20 gm STK-MED ONCE .ROUTE ; Start 11/20/20 at 22:07; Stop 11/20/20 at 22:07; Status DC Lactulose (Lactulose) 20 gm STK-MED ONCE .ROUTE ; Start 11/21/20 at 09:04; Stop 11/21/20 at 09:05; Status DC Potassium Chloride/Water 100 ml @ 100 mls/hr Q1H IV Last administered on 11/21at 11:16; Start 11/21/20 at 09:30; Stop 11/21/20 at 11:29; Status DC Rifaximin (Xifaxan) 550 mg Q12HR PO Last administered on 12/04/20at 08:42; Start 11/21/20 at 12:30 Info (Tpn Per Pharmacy) 1 each PRN DAILY PRN MC SEE COMMENTS Last administered on 11/24/20at 15:59; Start 11/21/20 at 14:00; Stop 11/24/20 at 18:58; Status DC Potassium Phosphate 15 mmol/ Sodium Chloride 255 ml @ 127.5 mls/ hr 1X ONCE IV Last administered on 11/21/20at 14:19; Start 11/21/20 at 14:00; Stop 11/21/20 at 15:59; Status DC Pantoprazole Sodium (PROTONIX VIAL for IV PUSH) 40 mg BID IVP Last administered on 11/26/20at 21:39; Start 11/21/20 at 21:00; Stop 11/27/20 at 11:58; Status DC Potassium Chloride 50 meq/ Potassium Phosphate 13.6 mmol/Magnesium Sulfate 10 meq/ Calcium Gluconate 10 meq/ Multivitamins 5 ml/Zinc/Copper/ Manganese/ Selenium 1 ml/ Thiamine HCl 100 mg/Folic Acid 1 mg/Total Parenteral Nutr ition/Amino Acids/Dextrose/ Fat Emuls... 1,800 ml @ 75 mls/hr TPN CONT IV Last administered on 11/21/20at 22:55; Start 11/21/20 at 22:00; Stop 11/22/20 at 21:59; Status DC Rifaximin (Xifaxan) 550 mg STK-MED ONCE PO ; Start 11/21/20 at 14:17; Stop 11/21/20 at 14:17; Status DC Lactulose (Lactulose) 20 gm STK-MED ONCE .ROUTE ; Start 11/21/20 at 14:17; Stop 11/21/20 at 14:17; Status DC Daptomycin 470 mg/ Sodium Chloride 50 ml @ 100 mls/hr Q24H IV Last administered on 11/25/20at 13:18; Start 11/22/20 at 13:00; Stop 11/26/20 at 13:15; Status DC Potassium Phosphate 15 mmol/ Sodium Chloride 255 ml @ 127.5 mls/ hr 1X ONCE IV Last administered on 11/22/20at 13:20; Start 11/22/20 at 14:00; Stop 11/22/20 at 15:59; Status DC Potassium Acetate 50 meq/Potassium Phosphate 18 mmol/ Magnesium Sulfate 10 meq/Calcium Gluconate 10 meq/ Multivitamins 5 ml/Zinc/Copper/ Manganese/ Selenium 1 ml/ Thiamine HCl 100 mg/Folic Acid 1 mg/Total Parenteral Nutrition/Amino Acids/Dextrose 1,800 ml @ 75 mls/hr TPN CONT IV Last admi nistered on 11/22/20at 21:37; Start 11/22/20 at 22:00; Stop 11/23/20 at 21:59; Status DC Potassium Chloride/Water 100 ml @ 100 mls/hr 1X ONCE IV Last administered on 11/22/20at 15:20; Start 11/22/20 at 16:00; Stop 11/22/20 at 16:59; Status DC Albuterol Sulfate (Ventolin Neb Soln) 2.5 mg PRN Q4HRS PRN NEB SHORTNESS OF BREATH Last administered on 11/23/20at 11:53; Start 11/23/20 at 09:15 Potassium Phosphate 15 mmol/ Sodium Chloride 255 ml @ 127.5 mls/ hr 1X ONCE IV Last administered on 11/23/20at 10:39; Start 11/23/20 at 11:00; Stop 11/23/20 at 12:59; Status DC Potassium Acetate 50 meq/Potassium Phosphate 21 mmol/ Magnesium Sulfate 10 meq/Calcium Gluconate 10 meq/ Multivitamins 5 ml/Zinc/Copper/ Manganese/ Selenium 1 ml/ Thiamine HCl 100 mg/Folic Acid 1 mg/Total Parenteral Nutrition/Amino Acids/Dextrose 1,800 ml @ 75 mls/hr TPN CONT IV Last administered on 11/23/20at 21:54; Start 11/23/20 at 22:00; Stop 11/24/20 at 18:59; Status DC Amlodipine Besylate (Norvasc) 10 mg DAILY PO Last administered on 12/04/20at 08:43; Start 11/24/20 at 09:00 Amlodipine Besylate (Norvasc) 10 mg 1X ONCE PO Last administered on 11/23/20at 10:03; Start 11/23/20 at 10:00; Stop 11/23/20 at 10:01; Status DC Labetalol HCl (Normodyne Iv Push) 20 mg PRN Q4HRS PRN IVP HYPERTENSION Last administered on 11/24/20at 09:24; Start 11/24/20 at 09:30; Stop 11/24/20 at 10:40; Status DC Enalaprilat (Vasotec Inj) 2.5 mg PRN Q6HRS PRN IVP HYPERTENSION-2ND CHOICE Last administered on 11/26/20at 09:40; Start 11/24/20 at 10:15 Labetalol HCl (Normodyne Iv Push) 20 mg PRN Q2HR PRN IVP HYPERTENSION Last administered on 12/02/20at 17:02; Start 11/24/20 at 10:45 Magnesium Sulfate 50 ml @ 25 mls/hr 1X ONCE IV Last administered on 11/24/20at 11:03; Start 11/24/20 at 12:00; Stop 11/24/20 at 13:59; Status DC Potassium Acetate 50 meq/Potassium Phosphate 21 mmol/ Magnesium Sulfate 10 meq/Calcium Gluconate 10 meq/ Multivitamins 5 ml/Zinc/Copper/ Manganese/ Selenium 1 ml/ Thiamine HCl 100 mg/Folic Acid 1 mg/Total Parenteral Nutrition/Amino Acids/Dextrose 1,800 ml @ 75 mls/hr TPN CONT IV ; Start 11/24/20 at 22:00; Stop 11/24/20 at 18:59; Status DC Insulin Human Lispro (HumaLOG) 0-5 UNITS TIDWMEALS SQ ; Start 11/24/20 at 17:00; Stop 11/24/20 at 12:43; Status DC Dextrose (Dextrose 50%-Water Syringe) 12.5 gm PRN Q15MIN PRN IV SEE COMMENTS; Start 11/24/20 at 12:45; Status Cancel Nicardipine HCl 50 mg/Sodium Chloride 250 ml @ 25 mls/hr CONT PRN IV SEE I/O RECORD Last administered on 11/24/20at 22:35; Start 11/24/20 at 12:45; Stop 12/01/20 at 12:13; Status DC Insulin Human Lispro (HumaLOG) 0-7 UNITS TIDWMEALS SQ ; Start 11/24/20 at 17:00; Stop 11/24/20 at 18:58; Status DC Dextrose (Dextrose 50%-Water Syringe) 12.5 gm PRN Q15MIN PRN IV SEE COMMENTS; Start 11/24/20 at 12:45; Stop 11/30/20 at 15:02; Status DC Insulin Human Lispro (HumaLOG) 0-7 UNITS Q6HRS SQ Last administered on 11/28/20at 11:23; Start 11/25/20 at 00:00; Stop 11/30/20 at 11:50; Status DC Ibuprofen (Motrin) 600 mg PRN Q6HRS PRN PO INFLAMMATION Last administered on 12/03/20at 01:16; Start 11/25/20 at 11:15 Magnesium Sulfate 50 ml @ 25 mls/hr 1X ONCE IV Last administered on 11/25/20at 14:02; Start 11/25/20 at 12:00; Stop 11/25/20 at 13:59; Status DC Magnesium Sulfate 50 ml @ 25 mls/hr 1X ONCE IV ; Start 11/26/20 at 13:45; Stop 11/26/20 at 15:44; Status DC Metronidazole 100 ml @ 100 mls/hr Q8HRS IV Last administered on 11/29/20at 06:25; Start 11/26/20 at 14:00; Stop 11/29/20 at 09:12; Status DC Cefepime HCl (Maxipime) 1 gm Q8HRS IVP Last administered on 11/29/20at 06:24; Start 11/26/20 at 14:00; Stop 11/29/20 at 09:12; Status DC Linezolid/Dextrose 300 ml @ 300 mls/hr Q12HR IV Last administered on 11/28/20at 10:13; Start 11/26/20 at 21:00; Stop 11/28/20 at 11:35; Status DC Micafungin Sodium 100 mg/Dextrose 100 ml @ 100 mls/hr Q24H IV Last admini stered on 11/27/20at 14:22; Start 11/26/20 at 14:00; Stop 11/28/20 at 11:35; Status DC Potassium Chloride (Klor-Con) 40 meq 1X ONCE PO Last administered on 11/27/20at 06:36; Start 11/27/20 at 07:00; Stop 11/27/20 at 07:01; Status DC Magnesium Sulfate 100 ml @ 50 mls/hr 1X ONCE IV Last administered on 11/27/20at 06:37; Start 11/27/20 at 07:00; Stop 11/27/20 at 08:59; Status DC Lactulose (Lactulose) 20 gm DAILY FT Last administered on 11/28/20at 10:18; Start 11/28/20 at 09:00; Stop 11/29/20 at 10:29; Status DC Pantoprazole Sodium (PROTONIX VIAL for IV PUSH) 40 mg DAILY IVP Last administered on 11/30/20at 08:32; Start 11/28/20 at 07:30; Stop 11/30/20 at 11:29; Status DC Potassium Chloride/Water 100 ml @ 100 mls/hr 1X ONCE IV Last administered on 11/28/20at 11:02; Start 11/28/20 at 11:30; Stop 11/28/20 at 12:29; Status DC Fluoxetine HCl (PROzac) 20 mg BID PEG Last administered on 11/30/20at 08:32; Start 11/28/20 at 21:00; Stop 11/30/20 at 20:42; Status DC Info (Non-Icu Electrolyte Protocol) 1 ea CONT PRN PRN MC SEE COMMENTS; Start 11/28/20 at 13:00 Magnesium Sulfate 50 ml @ 25 mls/hr 1X ONCE IV Last administered on 11/28/20at 16:07; Start 11/28/20 at 16:00; Stop 11/28/20 at 17:59; Status DC Thiamine Mononitrate (Vitamin B-1) 100 mg DAILY PEG Last administered on 12/04/20at 08:44; Start 11/29/20 at 09:00 Folic Acid (Folic Acid) 1 mg DAILY PEG Last administered on 12/04/20at 08:44; Start 11/29/20 at 09:00 Multivitamins/ Minerals Therapeutic (Centrum Multivit-Mineral Liq) 5 ml DAILY PEG Last administered on 12/02/20at 10:43; Start 11/29/20 at 09:00; Stop 12/02/20 at 11:20; Status DC Amoxicillin/ Clavulanate Potassium (Augmentin 875/ 125mg) 1 tab BID PO Last administered on 12/04/20at 08:42; Start 11/29/20 at 21:00; Stop 12/09/20 at 21:59 Lactulose (Lactulose) 20 gm PRN DAILY PRN FT constipation; Start 11/29/20 at 10:30; Stop 11/30/20 at 11:29; Status DC Potassium Chloride (Klor-Con) 40 meq 1X ONCE PO Last administered on 11/29/20at 13:56; Start 11/29/20 at 13:30; Stop 11/29/20 at 13:31; Status DC Magnesium Sulfate 50 ml @ 25 mls/hr 1X ONCE IV Last administered on 11/29/20at 13:56; Start 11/29/20 at 13:30; Stop 11/29/20 at 15:29; Status DC Lactulose (Lactulose) 20 gm PRN BID PRN PO constipation; Start 11/30/20 at 11:30 Pantoprazole Sodium (Protonix) 40 mg DAILYAC PO Last administered on 12/04/20at 08:44; Start 12/01/20 at 07:30 Insulin Human Lispro (HumaLOG) 0-7 UNITS TIDACHC SQ ; Start 11/30/20 at 12:00 Dextrose (Dextrose 50%-Water Syringe) 12.5 gm PRN Q15MIN PRN IV SEE COMMENTS; Start 11/30/20 at 12:00 Potassium Chloride (Klor-Con) 20 meq DAILYWBKFT PO Last administered on 12/04/20at 08:44; Start 11/30/20 at 12:30 Magnesium Sulfate 50 ml @ 25 mls/hr 1X ONCE IV Last administered on 11/30/20at 12:49; Start 11/30/20 at 13:00; Stop 11/30/20 at 14:59; Status DC Fluoxetine HCl (PROzac) 20 mg BID PO Last administered on 12/04/20at 08:44; Start 11/30/20 at 21:00 Gabapentin (Neurontin) 100 mg TID PO Last administered on 12/04/20at 08:44; Start 12/01/20 at 14:00 Lorazepam (Ativan) 0.5 mg PRN Q8HRS PRN PO ANXIETY / AGITATION; Start 12/01/20 at 12:15 Lactobacillus Rhamnosus (Culturelle) 1 cap BID PO Last administered on 12/04/20 08:44; Start 12/01/20 at 14:00 Multivitamins (Thera M Plus) 1 tab DAILY PO Last administered on 12/04/20at 08:43; Start 12/03/20 at 09:00 Tramadol HCl (Ultram) 50 mg PRN Q6HRS PRN PO PAIN Last administered on 12/04/20 11:21; Start 12/02/20 at 11:30 Active Scripts Active Reported Multivitamins (Multivitamin) 1 Each Tablet 1 Each PO DAILY Tramadol Hcl 50 Mg Tablet 50 Mg PO Q6HRS PRN Vitals/I & O Vital Sign - Last 24 Hours 12/03/20 12/03/20 12/03/20 12/03/20 15:00 19:00 22:28 22:58 Temp 97.9 99.1 97.8 97.9 99.1 97.8 Pulse 88 96 93 Resp 18 17 18 B/P (MAP) 147/83 (104) 128/78 (95) 139/83 (101) Pulse Ox 95 97 95 O2 Delivery Room Air Room Air Room Air Room Air 12/04/20 12/04/20 12/04/20 12/04/20 02:58 05:34 07:00 08:43 Temp 97.8 99.1 97.8 99.1 Pulse 90 96 96 Resp 18 17 B/P (MAP) 142/80 (100) 144/80 (101) 144/80 Pulse Ox 95 93 O2 Delivery Room Air Room Air Room Air 12/04/20 11:21 Resp 16 O2 Delivery Room Air Intake and Output 12/03/20 12/03/20 12/04/20 15:00 23:00 07:00 Intake Total 320 ml 200 ml Balance 320 ml 200 ml Justicifation of Admission Dx: Justifications for Admission: Justification of Admission Dx: Yes Sepsis: Altered Mental Status Altered Mental Status: Altered Mental Status MADDISON COLE MD December 04, 2020 12:54
[2020-12-04 15:00] VITALS: BP 127/71
--- NOTE | 2020-12-04 16:13 | NUR ---
Wound Care: Consult to eval and treat coccyx maceration. Skin dry, red, and scaly. Recommend nystatin cream BID to affected area. Wound care to sign off at this time.
[2020-12-04] MEDS: NYSTATIN 100,000 UNIT/GM TOPICAL CREAM 15GM TUBE. TP SCH ×2 (17:00→20:36)
[2020-12-04 19:00] VITALS: BP 132/75
[2020-12-04 23:00] VITALS: BP 151/77
[2020-12-05 03:00] VITALS: BP 142/77
[2020-12-05] MEDS: traMADol 50 MG TABLET PO PRN ×3 (05:20→17:38)
[2020-12-05 07:00] VITALS: BP 133/67
[2020-12-05] MEDS: INSULIN LISPRO 300 UNITS/3 ML VIAL. SQ SCH ×4 (07:30→21:00)
[2020-12-05] MEDS: MULTIVITAMIN with MINERAL TABLET. PO SCH (09:05)
[2020-12-05] MEDS: AMOXICILLIN/K CLAV 875/125MG TABLET. PO SCH ×2 (09:05→20:44)
[2020-12-05] MEDS: rifAXIMin 550 MG TABLET PO SCH ×2 (09:05→20:44)
[2020-12-05] MEDS: FOLIC ACID 1 MG TABLET. PEG SCH (09:06)
[2020-12-05] MEDS: THIAMINE 100 MG TABLET. PEG SCH (09:06)
[2020-12-05] MEDS: PANTOPRAZOLE 40 MG TABLET.DR. PO SCH (09:06)
[2020-12-05] MEDS: amLODIPine BESYLATE 10 MG TABLET PO SCH (09:06)
[2020-12-05] MEDS: GABAPENTIN 100 MG CAPSULE. PO SCH ×3 (09:06→20:44)
[2020-12-05] MEDS: LACTOBACILLUS RHAMNOSUS GG 1 CAPSULE. PO SCH ×2 (09:06→20:44)
[2020-12-05] MEDS: POTASSIUM CHLORIDE 20 MEQ TABLET.ER. PO SCH (09:06)
[2020-12-05] MEDS: FLUoxetine HCL 20 MG CAPSULE PO SCH ×2 (09:06→20:44)
[2020-12-05] MEDS: NYSTATIN 100,000 UNIT/GM TOPICAL CREAM 15GM TUBE. TP SCH ×2 (09:07→20:44)
--- NOTE | 2020-12-05 10:44 | PDOC ---
Date of Service: DATE: 12/05/20 TIME: 10:42 Subjective: Subjective: Feels fine, just tired. Eating and stooling, awaiting discharge plans. Objective: Vital Signs: Vital Signs Date Time Temp Pulse Resp B/P (MAP) Pulse Ox O2 Delivery O2 Flow Rate FiO2 12/05/20 09:06 91 133/67 12/05/20 07:00 98.8 18 97 Room Air 98.8 Labs: Laboratory Tests Test 12/04/20 17:01 12/04/20 20:13 12/05/20 07:30 Glucose (Fingerstick) 86 mg/dL 111 mg/dL 83 mg/dL PE: GEN: NAD - was asleep LUNGS: clear ABD: S/ND/NT SKIN: +jaundice NEURO/PSYCH: A & O 3 A/P: Alcoholic liver disease - on Xifaxan BID + lactulose PRN H/o gastric bypass, ulcers - on PPI -- Stable GI-abdalla. DC per primary. No alcohol. Justicifation of Admission Dx: Justifications for Admission: Justification of Admission Dx: Yes Sepsis: Altered Mental Status Altered Mental Status: Altered Mental Status CHAVA DUKE December 05, 2020 10:43
--- NOTE | 2020-12-05 10:47 | NUR ---
SW following. Discussed with RN, pt accepted at [facility] [place] pending insurance auth. BARRY will continue to follow. Addendum: 12/05/20 at 1444 by REAGAN GUSTAFSON SW PT/OT now recommending home health. Pt preferring to do outpatient therapy because she does not plan on being homebound once at home. RN notified. Pt will discharge home with outpatient therapy. No further SW needs.
[2020-12-05 11:00] VITALS: BP 140/76
--- NOTE | 2020-12-05 11:48 | PDOC ---
[employer] PROGRESS NOTE Date of Service DOS: DATE: 12/05/20 TIME: 11:47 Chief Complaint Chief Complaint A/P: Acute hepatic encephalopathy Acute liver failure, likely from alcoholism with hyperbilirubinemia. Improving slowly Acute renal failure. Anemia. Status post PRBC Coagulopathy. Severe Protein-calorie malnutrition. History of gastroesophageal reflux disease, GI bleed, gastritis, pancreatitis, peptic ulcer disease. History of anxiety and depression. Hydropic gallbladder with hepatic steatosis. Sepsis - urine with sydney, likely some element of aspiration pneumonitis/pneumonia as well Diarrhea on lactulose UC Sydney albicans Pulmonary infiltrates History of Present Illness History of Present Illness 12/05/2020 Patient was seen and examined today. discussed with on telephone the recovery and plans for care moving forward. Discussed plans with RN and case management. Chart reviewed. 12/03: Still with decreased appetite, bilirubin 3.9. 12/02: Afebrile. Feels a little stronger. Appetite is still low. Bilirubin 4.7 today 12/01: Much less confused today. Father is visiting. Moving with full assistance to chair, feeling a bit stronger. Labs improved. Wishes for acute rehab rehab 11/30: Less confused today. Her father is visiting. She pulled her NG tube out overnight but she did eat breakfast. Electrolyte replaced by nephrology. Hemoglobin 7.1 today. Long discussion with alcohol cessation undertaken. She wants to stop drinking vodka has been alcohol rehab twice. 11/29: Still confused. Seen bedside NG tube and on GT feeds. Able to pass swallow evaluation with SUPREME COURT JUSTICE. Potassium 3 mag 1.7. She still little confused but does recall that she is at [facility] upon prompting. 11/28/2020 Patient seen and examined in ICU Spoke with nursing, chart reviewed Patient depressed some 11/27/2020 Patient seen and examined in ICU. She tried to speak more today than she has previously, but not able to understand her very well Spoke to nursing chart reviewed 11/26/2020 Patient seen and examined in ICU. Patient was awake but did not talk. Spoke with Rene, the patient's . She has spoken some words to him. Spoke with RN. NG feeding 40cc/hr. 11/25/2020 Patient seen and examined in ICU Remains extremely encephalopathic Spoke with RN Spoke with patient's on the phone, he is distraught over her condition. Blood pressure still high Fever today of 100.6. 11/24/2020 Patient seen and examined in the ICU She remains extremely encephalopathic Eyes open but does not really make eye contact Discussed with RN Her pressures are running high Have added an IV labetalol and IV Vasotec Prognosis guarded and she is still critically ill 11/23/20 Patient seen and examined in ICU Chart review, discussed with nursing and behavioral health case manager Still visibly jaundiced, tried to speak but unable to form words Lab work improving since beginning lactulose and rifaxamin. Bilirubin down. Patient did have new onset wheezing today and spoke to nursing about starting PRN nebulizers. 11/22/20 Patient seen and examined in the ICU Chart reviewed, discussed with nursing and behavioral health case manager Still visibly jaundiced, encephalopathic, but eyes open. Anemia - 6.8. WBC count up to 81. PEG not tolerated. GI considering TPN Patient started on lactulose + rifaxamin per GI FFP being considered for coagulopathy. 11/21/20 Patient seen and examined in the ICU Chart reviewed Still visibly jaundiced Respiratory rate improved to around 25 today, was around 30-35 yesterday. Anemia improving; at Hgb of 6.6 today. Ordered 1 unit PRBC this morning. Hypothermia resolved; temp today 98.1 WBC count improved to 6. Patient now on PEG tube. Dex for sedation Octreotide drip IV Protonix Continue rectal bag Wood to BSD in place 11/20/20 Patient seen and examined in the ICU Chart reviewed She is visibly jaundiced Very anemic with HBG at 2.44 Hypothermic today with temp of 97.5 F (04:00), up from 94.4 F yesterday (20:00) White blood cells trending downward from normal, today WBC are 3.7 Dex for sedation Octreotide drip in the room IV Protonix going Continue rectal bag Wood to BSD in place 11/19/20 VERY ANEMIC, HYPOTENSIVE - MELD score on admit is 40, PROGNOSIS VERY GUARDED ECHO pending, cardiology consulted Stools slightly red per RN NH4 pending IONIZED CA 1.05 VIT D LEVEL pending 11/18/20 VERY ANEMIC, HYPOTENSIVE OVERNIGHT ECHO pending, cardiology consulted NH4 pending ID CONSULT NEUROLOGY CONSULT Gen Surg consult 11/17/20 Ms Phipps is a 40yo F w/ PMHx morbid obesity s/p gastric bypass ini 2008, alcohol use disorder, Anxiety, Depression, Hypertension, IBS, Kidney Stones, Pancreatitis, chronic back pain, and smoker who presented to [facility] ED in [place], [place] via EMS for altered mental status. Her called because katarina man has been on couch has been increasingly confused over the past 5 days. Per EMS report she had a fall a few days ago when she was intoxicated. EKG appears sinus tachycardia, heart rate [address] elevation or depression, no ectopy. Normal intervals. T waves unremarkable. CT chest abdomen pelvis revealed severe hepatic steatosis and cholelithiasis with hydropic gallbladder and gastric bypass, no other acute findings. CT head with no acute hemorrhage. Labs with WBC 7.5, Hb 6.4, platelets 237, Na 130, K 4.3, BUN 10, Cr 2.3, glucose 72, Trop 0, BNP 939, Albumin 1.8, INR 4.9, ammonia 44, bilirubin 11, AST 2744, ALT 400, Alk phos 172, Lipase 42 Given concern for acute liver failure and acute renal failure patient accepted for transfer to [facility] for specialist consultation. Seen bedside with her , patient following very few commands, otherwise drowsy, not oriented, moaning, not articulating well or making meaningful eye contact. notes that sometimes this might happen for a week at a time at home and frightens their 11 and 17 year old children. He notes "it has been a rough year". She was [facility] after a DUI and parole violation of intoxication with alcohol that led to [place]. She has struggled with substance use disorder, specifically alcohol, according to her since her gastric bypass in 2008, has been previously treated for this as well as pancreatitis. Admitted to ICU for further treatment. Due to the inability to maintain a peripheral IV and concern for potential uncontrollable bleeding in the neck a right femoral central venous catheter was placed for medications, blood transfusion and lab draw purposes for frequent lab draws. Vitals/I&O Vitals/I&O: Vital Signs Date Time Temp Pulse Resp B/P (MAP) Pulse Ox O2 Delivery O2 Flow Rate FiO2 12/05/20 11:07 16 Room Air 12/05/20 11:00 99.3 89 140/76 (97) 95 99.3 I & O 12/04/20 12/04/20 12/05/20 15:00 23:00 07:00 Intake Total 120 ml Balance 120 ml Physical Exam Physical Exam: GENERAL: Awake alert, looks better HEENT: PERRL,EOMI Oral cavity is dry. NECK: Supple. LUNGS: Clear bilaterally. labored. HEART: S1, S2. No murmurs. Regular. ABDOMEN: Obese, soft, Bowel sounds present EXTREMITIES: Edema present no cyanosis. DERMATOLOGIC: No generalized rash. Multiple tattoos. CENTRAL NERVOUS SYSTEM: Alert awake, grossly nonfocal right arm PICC General: Alert, mild distress Heart: Regular rate Lungs: Clear Abdomen: Soft, Other (obese ) Extremities: No cyanosis Skin: No breakdown, Other (Visibly jaundiced.) Labs Labs: Laboratory Tests Test 12/04/20 17:01 12/04/20 20:13 12/05/20 07:30 12/05/20 10:46 Glucose (Fingerstick) 86 mg/dL (70-99) 111 mg/dL (70-99) 83 mg/dL (70-99) 90 mg/dL (70-99) Review of Systems Review of Systems: no headache no loss of vision Assessment and Plan Assessmemt and Plan A/P: Acute hepatic encephalopathy Acute liver failure, likely from alcoholism with hyperbilirubinemia. Improving slowly Acute renal failure. Anemia. Status post PRBC Coagulopathy. Severe Protein-calorie malnutrition. History of gastroesophageal reflux disease, GI bleed, gastritis, pancreatitis, peptic ulcer disease. History of anxiety and depression. Hydropic gallbladder with hepatic steatosis. Sepsis - urine with sydney, likely some element of aspiration pneumonitis/pneumonia as well Diarrhea on lactulose UC Sydney albicans Pulmonary infiltrates Plan: await PAT eval trend labs home meds full code encourage PO intake dc disposition pending Appreciate subspecialist input Long-term prognosis guarded I called and spoke with her Rene Advance Care Planning: Total time spent [id number] with patient greater than 16 minutes in discussion with goals of care, comfort care, end-of-life care, pain management, code status Comment Review of Relevant I have reviewed the following items josue (where applicable) has been applied. Medications: Current Medications Medications (Trade) Dose Ordered Sig/Saud Route PRN Reason Start Time Stop Time Status Last Admin Dose Admin Nystatin (Mycostatin) 1 jenny BID TP 12/04/20 17:00 12/05/20 09:07 Justifications for Admission General Conditions Poss tachycardia?: Yes Justification for admission: Patient has tachycardia (> 100 beats per minute) which is not readily corrected by appropriate treatment within 12 to 24 hours. Poss Metaboilic Acidosis?: Yes Justification for admission: Patient has tachycardia (> 100 beats per minute) or hypotension (SBP < 90 mm Hg) leading to inadequate systemic perfusion as indicated by metabolic acidosis with arterial pH of less than 7.35. Altered mental status?: Yes Justification of admission: Patient has tachycardia (> 100 beats per minute) or hypotension (SBP < 90 mm Hg) leading to inadequate systemic perfusion as indicated by severe/persistent altered mental status. Other Justification MOOK CHRISTOPHER III DO December 05, 2020 11:48
[2020-12-05 15:00] VITALS: BP 140/75
[2020-12-05 19:49] VITALS: BP 133/72
[2020-12-05 23:41] VITALS: BP 144/84
[2020-12-06] MEDS: traMADol 50 MG TABLET PO PRN ×3 (00:47→15:31)
[2020-12-06 03:24] VITALS: BP 131/82
[2020-12-06 06:32] LABS: BASO % 1 % (0-3); EOS # 0.2 x10^3/uL (0.0-0.7); EOS % 4 % (0-3); HEMATOCRIT 24.7 % (36.0-47.0); LYMPH # 1.4 x10^3/uL (1.0-4.8); LYMPH % 24 % (24-48); MEAN CORPUSCULAR HEMOGLOBIN 32 pg (25-35); MEAN CORPUSCULAR HGB CONC 33 g/dL (31-37); MEAN CORPUSCULAR VOLUME 97 fL (79-100); MONO # 0.5 x10^3/uL (0.0-1.1); MONO % 9 % (0-9); NEUT # 3.7 x10^3/uL (1.8-7.7); NEUT % 63 % (31-73); PLATELET COUNT 255 x10^3/uL (140-400); RED BLOOD COUNT 2.55 x10^6/uL (3.50-5.40); RED CELL DISTRIBUTION WIDTH 24.6 % (11.5-14.5); WHITE BLOOD COUNT 5.9 x10^3/uL (4.0-11.0)
[2020-12-06 06:36] LABS: ALBUMIN 2.3 g/dL (3.4-5.0); ALBUMIN/GLOBULIN RATIO 0.5 (1.0-1.7); CALCIUM 8.6 mg/dL (8.5-10.1); CREATININE 0.4 mg/dL (0.6-1.0); GFR 175.9; POTASSIUM 3.6 mmol/L (3.5-5.1); TOTAL BILIRUBIN 4.2 mg/dL (0.2-1.0); TOTAL PROTEIN 6.5 g/dL (6.4-8.2)
[2020-12-06 07:00] VITALS: BP 131/76
[2020-12-06] MEDS: INSULIN LISPRO 300 UNITS/3 ML VIAL. SQ SCH ×3 (07:30→16:20)
[2020-12-06] MEDS: LACTOBACILLUS RHAMNOSUS GG 1 CAPSULE. PO SCH (08:23)
[2020-12-06] MEDS: MULTIVITAMIN with MINERAL TABLET. PO SCH (08:23)
[2020-12-06] MEDS: PANTOPRAZOLE 40 MG TABLET.DR. PO SCH (08:23)
[2020-12-06] MEDS: AMOXICILLIN/K CLAV 875/125MG TABLET. PO SCH (08:23)
[2020-12-06] MEDS: FOLIC ACID 1 MG TABLET. PEG SCH (08:23)
[2020-12-06] MEDS: rifAXIMin 550 MG TABLET PO SCH (08:23)
[2020-12-06] MEDS: THIAMINE 100 MG TABLET. PEG SCH (08:23)
[2020-12-06] MEDS: POTASSIUM CHLORIDE 20 MEQ TABLET.ER. PO SCH (08:23)
[2020-12-06] MEDS: FLUoxetine HCL 20 MG CAPSULE PO SCH (08:23)
[2020-12-06] MEDS: NYSTATIN 100,000 UNIT/GM TOPICAL CREAM 15GM TUBE. TP SCH (08:24)
[2020-12-06] MEDS: GABAPENTIN 100 MG CAPSULE. PO SCH ×2 (08:24→13:55)
[2020-12-06] MEDS: amLODIPine BESYLATE 10 MG TABLET PO SCH (08:24)
--- NOTE | 2020-12-06 09:08 | PDOC ---
[employer] PROGRESS NOTE Date of Service DOS: DATE: 12/06/20 TIME: 09:04 Chief Complaint Chief Complaint A/P: Acute hepatic encephalopathy Acute liver failure, likely from alcoholism with hyperbilirubinemia. Improving slowly Acute renal failure. Anemia. Status post PRBC Coagulopathy. Severe Protein-calorie malnutrition. History of gastroesophageal reflux disease, GI bleed, gastritis, pancreatitis, peptic ulcer disease. History of anxiety and depression. Hydropic gallbladder with hepatic steatosis. Sepsis - urine with sydney, likely some element of aspiration pneumonitis/pneumonia as well Diarrhea on lactulose UC Sydney albicans Pulmonary infiltrates History of Present Illness History of Present Illness 12/06/2020 Discussed progress with patient and she expressed the desire to be released home. Discussed need to continued alcohol abstinence moving forward to prevent recurrence. Discussed plans with RN and case management. Reviewed chart. 12/05/2020 Patient was seen and examined today. discussed with on telephone the recovery and plans for care moving forward. Discussed plans with RN and case management. Chart reviewed. 12/03: Still with decreased appetite, bilirubin 3.9. 12/02: Afebrile. Feels a little stronger. Appetite is still low. Bilirubin 4.7 today 12/01: Much less confused today. Father is visiting. Moving with full assistance to chair, feeling a bit stronger. Labs improved. Wishes for acute rehab rehab 11/30: Less confused today. Her father is visiting. She pulled her NG tube out overnight but she did eat breakfast. Electrolyte replaced by nephrology. Hemoglobin 7.1 today. Long discussion with alcohol cessation undertaken. She wants to stop drinking vodka has been alcohol rehab twice. 11/29: Still confused. Seen bedside NG tube and on GT feeds. Able to pass swallow evaluation with DATA REVIEW SPECIALIST. Potassium 3 mag 1.7. She still little confused but does recall that she is at [place] upon prompting. 11/28/2020 Patient seen and examined in ICU Spoke with nursing, chart reviewed Patient depressed some 11/27/2020 Patient seen and examined in ICU. She tried to speak more today than she has previously, but not able to understand her very well Spoke to nursing chart reviewed 11/26/2020 Patient seen and examined in ICU. Patient was awake but did not talk. Spoke with Rene, the patient's . She has spoken some words to him. Spoke with RN. NG feeding 40cc/hr. 11/25/2020 Patient seen and examined in ICU Remains extremely encephalopathic Spoke with RN Spoke with patient's on the phone, he is distraught over her condition. Blood pressure still high Fever today of 100.6. 11/24/2020 Patient seen and examined in the ICU She remains extremely encephalopathic Eyes open but does not really make eye contact Discussed with RN Her pressures are running high Have added an IV labetalol and IV Vasotec Prognosis guarded and she is still critically ill 11/23/20 Patient seen and examined in ICU Chart review, discussed with nursing and supportive employment case manager Still visibly jaundiced, tried to speak but unable to form words Lab work improving since beginning lactulose and rifaxamin. Bilirubin down. Patient did have new onset wheezing today and spoke to nursing about starting PRN nebulizers. 11/22/20 Patient seen and examined in the ICU Chart reviewed, discussed with nursing and supportive employment case manager Still visibly jaundiced, encephalopathic, but eyes open. Anemia - 6.8. WBC count up to 81. PEG not tolerated. GI considering TPN Patient started on lactulose + rifaxamin per GI FFP being considered for coagulopathy. 11/21/20 Patient seen and examined in the ICU Chart reviewed Still visibly jaundiced Respiratory rate improved to around 25 today, was around 30-35 yesterday. Anemia improving; at Hgb of 6.6 today. Ordered 1 unit PRBC this morning. Hypothermia resolved; temp today 98.1 WBC count improved to 6. Patient now on PEG tube. Dex for sedation Octreotide drip IV Protonix Continue rectal bag Wood to BSD in place 11/20/20 Patient seen and examined in the ICU Chart reviewed She is visibly jaundiced Very anemic with HBG at 2.44 Hypothermic today with temp of 97.5 F (04:00), up from 94.4 F yesterday (20:00) White blood cells trending downward from normal, today WBC are 3.7 Dex for sedation Octreotide drip in the room IV Protonix going Continue rectal bag Wood to BSD in place 11/19/20 VERY ANEMIC, HYPOTENSIVE 11-18 MELD score on admit is 40, PROGNOSIS VERY GUARDED ECHO pending, cardiology consulted Stools slightly red per RN NH4 pending IONIZED CA 1.05 VIT D LEVEL pending 11/18/20 VERY ANEMIC, HYPOTENSIVE OVERNIGHT ECHO pending, cardiology consulted NH4 pending ID CONSULT NEUROLOGY CONSULT Gen Surg consult 11/17/20 Ms Phipps is a 40yo F w/ PMHx morbid obesity s/p gastric bypass ini 2008, alcohol use disorder, Anxiety, Depression, Hypertension, IBS, Kidney Stones, Pancreatitis, chronic back pain, and smoker who presented to [facility] ED in [place], [place] via EMS for altered mental status. Her called because patient has been on couch has been increasingly confused over the past 5 days. Per EMS report she had a fall a few days ago when she was intoxicated. EKG appears sinus tachycardia, heart rate [address] elevation or depression, no ectopy. Normal intervals. T waves unremarkable. CT chest abdomen pelvis revealed severe hepatic steatosis and cholelithiasis with hydropic gallbladder and gastric bypass, no other acute findings. CT head with no acute hemorrhage. Labs with WBC 7.5, Hb 6.4, platelets 237, Na 130, K 4.3, BUN 10, Cr 2.3, glucose 72, Trop 0, BNP 939, Albumin 1.8, INR 4.9, ammonia 44, bilirubin 11, AST 2744, ALT 400, Alk phos 172, Lipase 42 Given concern for acute liver failure and acute renal failure patient accepted for transfer to [facility] for specialist consultation. Seen bedside with her , patient following very few commands, otherwise drowsy, not oriented, moaning, not articulating well or making meaningful eye contact. notes that sometimes this might happen for a week at a time at home and frightens their 11 and 17 year old children. He notes "it has been a rough year". She [facility] after a DUI and parole violation of intoxication with alcohol that led to her serving 17 [place] in [facility] nursing [facility] [place]. She has struggled with substance use disorder, specifically alcohol, according to her since her gastric bypass in 2008, has been previously treated for this as well as pancreatitis. Admitted to ICU for further treatment. Due to the inability to maintain a peripheral IV and concern for potential uncontrollable bleeding in the neck a right femoral central venous catheter was placed for medications, blood transfusion and lab draw purposes for frequent lab draws. Vitals/I&O Vitals/I&O: Vital Signs Date Time Temp Pulse Resp B/P (MAP) Pulse Ox O2 Delivery O2 Flow Rate FiO2 12/06/20 08:24 90 131/82 12/06/20 03:24 98.7 16 93 Room Air 98.7 I & O 12/05/20 12/05/20 12/06/20 15:00 23:00 07:00 Intake Total 700 ml 300 ml 300 ml Balance 700 ml 300 ml 300 ml Physical Exam Physical Exam: GENERAL: Awake alert, looks better HEENT: PERRL,EOMI. NECK: Supple. LUNGS: Clear bilaterally. labored. HEART: S1, S2. No murmurs. Regular. ABDOMEN: Obese, soft, Bowel sounds present EXTREMITIES: Edema present no cyanosis. DERMATOLOGIC: No generalized rash. Multiple tattoos. CENTRAL NERVOUS SYSTEM: Alert awake. right arm PICC General: Alert, Oriented X3, Cooperative, No acute distress Heart: Regular rate Lungs: Clear Abdomen: Soft, Other (obese ) Extremities: No cyanosis Skin: No breakdown, Other (Visibly jaundiced.) Labs Labs: Laboratory Tests Test 12/05/20 10:46 12/05/20 15:48 12/05/20 20:57 12/06/20 06:15 Glucose (Fingerstick) 90 mg/dL (70-99) 108 mg/dL (70-99) 102 mg/dL (70-99) White Blood Count 5.9 x10^3/uL (4.0-11.0) Red Blood Count 2.55 x10^6/uL (3.50-5.40) Hemoglobin 8.0 g/dL (12.0-15.5) Hematocrit 24.7 % (36.0-47.0) Mean Corpuscular Volume 97 fL (79-100) Mean Corpuscular Hemoglobin 32 pg (25-35) Mean Corpuscular Hemoglobin Concent 33 g/dL (31-37) Red Cell Distribution Width 24.6 % (11.5-14.5) Platelet Count 255 x10^3/uL (140-400) Neutrophils (%) (Auto) 63 % (31-73) Lymphocytes (%) (Auto) 24 % (24-48) Monocytes (%) (Auto) 9 % (0-9) Eosinophils (%) (Auto) 4 % (0-3) Basophils (%) (Auto) 1 % (0-3) Neutrophils # (Auto) 3.7 x10^3/uL (1.8-7.7) Lymphocytes # (Auto) 1.4 x10^3/uL (1.0-4.8) Monocytes # (Auto) 0.5 x10^3/uL (0.0-1.1) Eosinophils # (Auto) 0.2 x10^3/uL (0.0-0.7) Basophils # (Auto) 0.0 x10^3/uL (0.0-0.2) Sodium Level 138 mmol/L (136-145) Potassium Level 3.6 mmol/L (3.5-5.1) Chloride Level 104 mmol/L (98-107) Carbon Dioxide Level 25 mmol/L (21-32) Anion Gap 9 (6-14) Blood Urea Nitrogen 3 mg/dL (7-20) Creatinine 0.4 mg/dL (0.6-1.0) Estimated GFR (Cockcroft-Gault) 175.9 BUN/Creatinine Ratio 8 (6-20) Glucose Level 83 mg/dL (70-99) Calcium Level 8.6 mg/dL (8.5-10.1) Total Bilirubin 4.2 mg/dL (0.2-1.0) Aspartate Amino Transf (AST/SGOT) 171 U/L (15-37) Alanine Aminotransferase (ALT/SGPT) 42 U/L (14-59) Alkaline Phosphatase 87 U/L (46-116) Total Protein 6.5 g/dL (6.4-8.2) Albumin 2.3 g/dL (3.4-5.0) Albumin/Globulin Ratio 0.5 (1.0-1.7) Test 12/06/20 07:44 Glucose (Fingerstick) 86 mg/dL (70-99) Review of Systems Review of Systems: No headache No loss of vision Assessment and Plan Assessmemt and Plan Acute hepatic encephalopathy Acute liver failure, likely from alcoholism with hyperbilirubinemia. Improving slowly Acute renal failure. Anemia. Status post PRBC Coagulopathy. Severe Protein-calorie malnutrition. History of gastroesophageal reflux disease, GI bleed, gastritis, pancreatitis, peptic ulcer disease. History of anxiety and depression. Hydropic gallbladder with hepatic steatosis. Sepsis - urine with sydney, likely some element of aspiration pneumonitis/pneumonia as well Diarrhea on lactulose UC Sydney albicans Pulmonary infiltrates Plan: Plan to discharge home Home meds Full code PT/OT input Encourage PO intake Appreciate subspecialist input Long-term prognosis guarded. Advance Care Planning: Total time spent [id number] with patient greater than 16 minutes in discussion with goals of care, comfort care, end-of-life care, pain management, code status Comment Review of Relevant I have reviewed the following items josue (where applicable) has been applied. Justifications for Admission General Conditions Poss tachycardia?: Yes Justification for admission: Patient has tachycardia (> 100 beats per minute) which is not readily corrected by appropriate treatment within 12 to 24 hours. Poss Metaboilic Acidosis?: Yes Justification for admission: Patient has tachycardia (> 100 beats per minute) or hypotension (SBP < 90 mm Hg) leading to inadequate systemic perfusion as indicated by metabolic acidosis with arterial pH of less than 7.35. Altered mental status?: Yes Justification of admission: Patient has tachycardia (> 100 beats per minute) or hypotension (SBP < 90 mm Hg) leading to inadequate systemic perfusion as indicated by severe/persistent altered mental status. Other Justification MOOK CHRISTOPHER III DO December 06, 2020 09:08
--- NOTE | 2020-12-06 09:30 | PDOC ---
PROGRESS NOTES Date of Service DATE: 12/06/20 TIME: 09:29 Assessment Metabolic encephalopathy Pancreatitis, liver failure (INR 1.7 on 11/25), renal failure, pancreatitis, history of gastric bypass for obesity, sepsis, hypothermia, anemia, coagulopathy, GERD, history of GI bleed and gastritis, history of anxiety and depression, hydropic gallbladder, hepatic steatosis, protein-calorie malnutrition. Plan No additional neurological studies planned Treat medical diseases On thiamine, rifaximin Discussed alcohol abstinence Subjective No complaints Objective Vital Signs Date Time Temp Pulse Resp B/P (MAP) Pulse Ox O2 Delivery O2 Flow Rate FiO2 12/06/20 08:24 90 131/82 12/06/20 07:00 99.1 18 97 Room Air 99.1 Intake and Output 12/06/20 07:00 Intake Total 1300 ml Balance 1300 ml Intake Oral 1300 ml # Voids 2 PHYSICAL EXAM Jaundiced Eyes open, knows name, location, date, normal conversation PERRL. EOMI. CN: no focal findings. Muscle tone: normal. Muscle strength: 4/5 DTR: 1+ Plantar reflex: Flexor Gait: not examined in bed. Sensory exam: No abnormal findings Cerebellar: No abnormal finding No asterixis Review of Relevant I have reviewed the following items josue (where applicable) has been applied. Labs Laboratory Tests Test 12/04/20 17:01 12/04/20 20:13 12/05/20 07:30 12/05/20 10:46 Glucose (Fingerstick) 86 mg/dL (70-99) 111 mg/dL (70-99) 83 mg/dL (70-99) 90 mg/dL (70-99) Test 12/05/20 15:48 12/05/20 20:57 12/06/20 06:15 12/06/20 07:44 Glucose (Fingerstick) 108 mg/dL (70-99) 102 mg/dL (70-99) 86 mg/dL (70-99) White Blood Count 5.9 x10^3/uL (4.0-11.0) Red Blood Count 2.55 x10^6/uL (3.50-5.40) Hemoglobin 8.0 g/dL (12.0-15.5) Hematocrit 24.7 % (36.0-47.0) Mean Corpuscular Volume 97 fL (79-100) Mean Corpuscular Hemoglobin 32 pg (25-35) Mean Corpuscular Hemoglobin Concent 33 g/dL (31-37) Red Cell Distribution Width 24.6 % (11.5-14.5) Platelet Count 255 x10^3/uL (140-400) Neutrophils (%) (Auto) 63 % (31-73) Lymphocytes (%) (Auto) 24 % (24-48) Monocytes (%) (Auto) 9 % (0-9) Eosinophils (%) (Auto) 4 % (0-3) Basophils (%) (Auto) 1 % (0-3) Neutrophils # (Auto) 3.7 x10^3/uL (1.8-7.7) Lymphocytes # (Auto) 1.4 x10^3/uL (1.0-4.8) Monocytes # (Auto) 0.5 x10^3/uL (0.0-1.1) Eosinophils # (Auto) 0.2 x10^3/uL (0.0-0.7) Basophils # (Auto) 0.0 x10^3/uL (0.0-0.2) Sodium Level 138 mmol/L (136-145) Potassium Level 3.6 mmol/L (3.5-5.1) Chloride Level 104 mmol/L (98-107) Carbon Dioxide Level 25 mmol/L (21-32) Anion Gap 9 (6-14) Blood Urea Nitrogen 3 mg/dL (7-20) Creatinine 0.4 mg/dL (0.6-1.0) Estimated GFR (Cockcroft-Gault) 175.9 BUN/Creatinine Ratio 8 (6-20) Glucose Level 83 mg/dL (70-99) Calcium Level 8.6 mg/dL (8.5-10.1) Total Bilirubin 4.2 mg/dL (0.2-1.0) Aspartate Amino Transf (AST/SGOT) 171 U/L (15-37) Alanine Aminotransferase (ALT/SGPT) 42 U/L (14-59) Alkaline Phosphatase 87 U/L (46-116) Total Protein 6.5 g/dL (6.4-8.2) Albumin 2.3 g/dL (3.4-5.0) Albumin/Globulin Ratio 0.5 (1.0-1.7) Laboratory Tests Test 12/05/20 10:46 12/05/20 15:48 12/05/20 20:57 12/06/20 06:15 Glucose (Fingerstick) 90 mg/dL (70-99) 108 mg/dL (70-99) 102 mg/dL (70-99) White Blood Count 5.9 x10^3/uL (4.0-11.0) Red Blood Count 2.55 x10^6/uL (3.50-5.40) Hemoglobin 8.0 g/dL (12.0-15.5) Hematocrit 24.7 % (36.0-47.0) Mean Corpuscular Volume 97 fL (79-100) Mean Corpuscular Hemoglobin 32 pg (25-35) Mean Corpuscular Hemoglobin Concent 33 g/dL (31-37) Red Cell Distribution Width 24.6 % (11.5-14.5) Platelet Count 255 x10^3/uL (140-400) Neutrophils (%) (Auto) 63 % (31-73) Lymphocytes (%) (Auto) 24 % (24-48) Monocytes (%) (Auto) 9 % (0-9) Eosinophils (%) (Auto) 4 % (0-3) Basophils (%) (Auto) 1 % (0-3) Neutrophils # (Auto) 3.7 x10^3/uL (1.8-7.7) Lymphocytes # (Auto) 1.4 x10^3/uL (1.0-4.8) Monocytes # (Auto) 0.5 x10^3/uL (0.0-1.1) Eosinophils # (Auto) 0.2 x10^3/uL (0.0-0.7) Basophils # (Auto) 0.0 x10^3/uL (0.0-0.2) Sodium Level 138 mmol/L (136-145) Potassium Level 3.6 mmol/L (3.5-5.1) Chloride Level 104 mmol/L (98-107) Carbon Dioxide Level 25 mmol/L (21-32) Anion Gap 9 (6-14) Blood Urea Nitrogen 3 mg/dL (7-20) Creatinine 0.4 mg/dL (0.6-1.0) Estimated GFR (Cockcroft-Gault) 175.9 BUN/Creatinine Ratio 8 (6-20) Glucose Level 83 mg/dL (70-99) Calcium Level 8.6 mg/dL (8.5-10.1) Total Bilirubin 4.2 mg/dL (0.2-1.0) Aspartate Amino Transf (AST/SGOT) 171 U/L (15-37) Alanine Aminotransferase (ALT/SGPT) 42 U/L (14-59) Alkaline Phosphatase 87 U/L (46-116) Total Protein 6.5 g/dL (6.4-8.2) Albumin 2.3 g/dL (3.4-5.0) Albumin/Globulin Ratio 0.5 (1.0-1.7) Test 12/06/20 07:44 Glucose (Fingerstick) 86 mg/dL (70-99) Microbiology 11/26/20 Blood Culture - Final, Complete NO GROWTH AFTER 5 DAYS 11/22/20 Urine Culture - Final, Complete Medications Current Medications Lorazepam (Ativan Inj) 0.5 mg PRN Q6HRS PRN IVP ANXIETY / AGITATION Last administered on 11/18/20at 18:10; Start 11/17/20 at 16:15; Stop 11/19/20 at 01:14; Status DC Ondansetron HCl (Zofran) 4 mg PRN Q6HRS PRN IVP NAUSEA/VOMITING, 1ST CHOICE Last administered on 11/27/20at 23:53; Start 11/17/20 at 16:15 Prochlorperazine Edisylate (Compazine) 5 mg PRN Q6HRS PRN IVP NAUSEA/VOMITING, 2ND CHOICE; Start 11/17/20 at 16:15 Info (Icu Electrolyte Protocol) 1 ea DAILY MC Last administered on 11/27/20at 06:29; Start 11/18/20 at 09:00; Stop 11/28/20 at 12:44; Status DC Sodium Chloride (Normal Saline Flush) 3 ml QSHIFT PRN IV AFTER MEDS AND BLOOD DRAWS; Start 11/17/20 at 16:15 Sodium Chloride 1,000 ml @ 1,000 mls/hr Q1H IV Last administered on 11/17/20at 17:50; Start 11/17/20 at 16:15; Stop 11/17/20 at 17:14; Status DC Fentanyl Citrate (Fentanyl 2ml Vial) 25 mcg PRN Q1HR PRN IV PAIN Last administered on 12/02/20at 10:47; Start 11/17/20 at 16:15; Stop 12/02/20 at 11:25; Status DC Lactulose (Lactulose) 20 gm PRN Q12HR PRN PO CONSTIPATION; Start 11/17/20 at 16:15; Stop 11/17/20 at 17:40; Status DC Bisacodyl (Dulcolax Supp) 10 mg PRN DAILY PRN [place] CONSTIPATION; Start 11/17/20 at 16:15 Pantoprazole Sodium (PROTONIX VIAL for IV PUSH) 40 mg DAILYAC IVP ; Start 11/18/20 at 07:30; Stop 11/17/20 at 17:40; Status DC Lactulose (LACTULOSE 300ML for RECTAL) 200 gm Q6HRS [place] ; Start 11/17/20 at 18:00; Stop 11/17/20 at 17:40; Status DC Sodium Bicarbonate 75 meq/Sodium Chloride 1,075 ml @ 125 mls/hr Q8H36M IV Last administered on 11/19/20at 05:44; Start 11/17/20 at 17:00; Stop 11/19/20 at 09:16; Status DC Pantoprazole Sodium (PROTONIX VIAL for IV PUSH) 80 mg 1X ONCE IVP Last administered on 11/17/20at 17:50; Start 11/17/20 at 18:00; Stop 11/17/20 at 18:01; Status DC Pantoprazole Sodium 80 mg/ Sodium Chloride 100 ml @ 10 mls/hr Q10H IV Last administered on 11/21/20at 12:30; Start 11/17/20 at 18:00; Stop 11/21/20 at 13:52; Status DC Octreotide Acetate 500 mcg/ Sodium Chloride 101 ml @ 10.1 mls/hr CONT PRN IV SEE I/O RECORD Last administered on 11/21/20at 12:30; Start 11/17/20 at 17:30; Stop 11/21/20 at 13:52; Status DC Lactulose (LACTULOSE 300ML for RECTAL) 200 gm Q2HR [place] Last administered on 11/20/20at 13:23; Start 11/17/20 at 18:00; Stop 11/20/20 at 19:16; Status DC Magnesium Sulfate 50 ml @ 25 mls/hr 1X ONCE IV Last administered on 11/17/20at 18:34; Start 11/17/20 at 18:30; Stop 11/17/20 at 20:29; Status DC Albumin Human 500 ml @ 125 mls/hr PRN DAILY PRN IV HYPOTENSION Last administered on 11/18/20at 01:47; Start 11/18/20 at 00:15 Multivitamins 10 ml/Thiamine HCl 100 mg/Folic Acid 1 mg/Sodium Chloride 1,011.2 ml @ 100 mls/ hr DAILY IV Last administered on 11/21/20at 09:17; Start 11/18/20 at 09:00; Stop 11/21/20 at 13:58; Status DC Thiamine HCl 100 mg/Dextrose 51 ml @ 100 mls/hr DAILY IV ; Start 11/23/20 at 09:00; Stop 11/27/20 at 09:31; Status Cancel Lorazepam (Ativan) 2 mg Q6H PO ; Start 11/18/20 at 08:00; Stop 11/19/20 at 01:14; Status DC Lactulose (Lactulose) 30 gm PRN DAILY PRN PO GI SYMPTOMS; Start 11/18/20 at 08:00; Status UNV Lactulose (Lactulose) 30 gm PRN DAILY PRN PO GI SYMPTOMS; Start 11/18/20 at 08:30; Status UNV Piperacillin Sod/ Tazobactam Sod (Zosyn Per Pharmacy) 1 each PRN DAILY PRN MC SEE COMMENTS; Start 11/18/20 at 12:00; Stop 11/26/20 at 13:15; Status DC Piperacillin Sod/ Tazobactam Sod 3.375 gm/Sodium Chloride 50 ml @ 100 mls/hr Q6HRS IV Last administered on 11/26/20at 12:07; Start 11/18/20 at 12:00; Stop 11/26/20 at 13:15; Status DC Phytonadione (Vitamin K Ampule) 5 mg 1X ONCE SQ Last administered on 11/18/20at 12:50; Start 11/18/20 at 12:15; Stop 11/18/20 at 12:16; Status DC Lorazepam (Ativan Inj) 2 mg PRN Q1HR PRN IV For CIWA 8-14 Last administered on 11/29/20at 00:32; Start 11/18/20 at 18:15; Stop 12/01/20 at 12:12; Status DC Potassium Chloride/Water 100 ml @ 100 mls/hr Q1H IV Last administered on 11/19/20at 09:30; Start 11/19/20 at 08:30; Stop 11/19/20 at 10:29; Status DC Magnesium Sulfate 50 ml @ 25 mls/hr PRN DAILY PRN IV for Mag < 1.7 on am labs Last administered on 11/30/20at 07:21; Start 11/19/20 at 08:30 Albumin Human 100 ml @ 100 mls/hr TID IV Last administered on 11/20/20at 22:11; Start 11/19/20 at 10:00; Stop 11/20/20 at 21:59; Status DC Lorazepam (Ativan Inj) 4 mg PRN Q1HR PRN IV For CIWA 15 or greater Last administered on 11/26/20at 16:28; Start 11/19/20 at 10:00; Stop 12/01/20 at 12:13; Status DC Dexmedetomidine HCl 400 mcg/ Sodium Chloride 100 ml @ 0 mls/hr CONT PRN IV PER PROTOCOL Last administered on 11/24/20at 11:06; Start 11/19/20 at 10:00; Stop 11/29/20 at 12:38; Status DC Sodium Chloride 500 ml @ 500 mls/hr 1X PRN PRN IV SEE COMMENTS; Start 11/19/20 at 10:00 Atropine Sulfate (ATROPINE 0.5mg SYRINGE) 0.5 mg PRN Q5MIN PRN IV SEE COMMENTS; Start 11/19/20 at 10:00; Stop 12/01/20 at 12:13; Status DC Calcium Gluconate 1000 mg/Sodium Chloride 110 ml @ 220 mls/hr 1X ONCE IV ; Start 11/19/20 at 14:00; Stop 11/19/20 at 14:29; Status UNV Calcium Gluconate 1000 mg/Sodium Chloride 110 ml @ 220 mls/hr 1X ONCE IV Last administered on 11/19/20at 14:29; Start 11/19/20 at 15:00; Stop 11/19/20 at 15:29; Status DC Potassium Chloride/Water 100 ml @ 100 mls/hr Q1H IV Last administered on 11/20/20at 16:11; Start 11/20/20 at 10:30; Stop 11/20/20 at 14:29; Status DC Lactulose (Lactulose) 20 gm QID FT Last administered on 11/26/20at 21:38; Start 11/20/20 at 17:00; Stop 11/27/20 at 11:58; Status DC Lactulose (Lactulose) 20 gm STK-MED ONCE .ROUTE ; Start 11/20/20 at 16:09; Stop 11/20/20 at 16:09; Status DC Albumin Human 100 ml @ As Directed STK-MED ONCE IV ; Start 11/20/20 at 22:06; Stop 11/20/20 at 22:07; Status DC Lactulose (Lactulose) 20 gm STK-MED ONCE .ROUTE ; Start 11/20/20 at 22:07; Stop 11/20/20 at 22:07; Status DC Lactulose (Lactulose) 20 gm STK-MED ONCE .ROUTE ; Start 11/21/20 at 09:04; Stop 11/21/20 at 09:05; Status DC Potassium Chloride/Water 100 ml @ 100 mls/hr Q1H IV Last administered on 11/21/20at 11:16; Start 11/21/20 at 09:30; Stop 11/21/20 at 11:29; Status DC Rifaximin (Xifaxan) 550 mg Q12HR PO Last administered on 12/06/20at 08:23; Start 11/21/20 at 12:30 Info (Tpn Per Pharmacy) 1 each PRN DAILY PRN MC SEE COMMENTS Last administered on 11/24/20at 15:59; Start 11/21/20 at 14:00; Stop 11/24/20 at 18:58; Status DC Potassium Phosphate 15 mmol/ Sodium Chloride 255 ml @ 127.5 mls/ hr 1X ONCE IV Last administered on 11/21/20at 14:19; Start 11/21/20 at 14:00; Stop 11/21/20 at 15:59; Status DC Pantoprazole Sodium (PROTONIX VIAL for IV PUSH) 40 mg BID IVP Last administered on 11/26/20at 21:39; Start 11/21/20 at 21:00; Stop 11/27/20 at 11:58; Status DC Potassium Chloride 50 meq/ Potassium Phosphate 13.6 mmol/Magnesium Sulfate 10 meq/ Calcium Gluconate 10 meq/ Multivitamins 5 ml/Zinc/Copper/ Manganese/ Selenium 1 ml/ Thiamine HCl 100 mg/Folic Acid 1 mg/Total Parenteral Nutrition/Amino Acids/Dextrose/ Fat Emuls... 1,800 ml @ 75 mls/hr TPN CONT IV Last administered on 11/21/20at 22:55; Start 11/21/20 at 22:00; Stop 11/22/20 at 21:59; Status DC Rifaximin (Xifaxan) 550 mg STK-MED ONCE PO ; Start 11/21/20 at 14:17; Stop 11/21/20 at 14:17; Status DC Lactulose (Lactulose) 20 gm STK-MED ONCE .ROUTE ; Start 11/21/20 at 14:17; Stop 11/21/20 at 14:17; Status DC Daptomycin 470 mg/ Sodium Chloride 50 ml @ 100 mls/hr Q24H IV Last administer ed on 11/25/20at 13:18; Start 11/22/20 at 13:00; Stop 11/26/20 at 13:15; Status DC Potassium Phosphate 15 mmol/ Sodium Chloride 255 ml @ 127.5 mls/ hr 1X ONCE IV Last administered on 11/22/20at 13:20; Start 11/22/20 at 14:00; Stop 11/22/20 at 15:59; Status DC Potassium Acetate 50 meq/Potassium Phosphate 18 mmol/ Magnesium Sulfate 10 meq/Calcium Gluconate 10 meq/ Multivitamins 5 ml/Zinc/Copper/ Manganese/ Selenium 1 ml/ Thiamine HCl 100 mg/Folic Acid 1 mg/Total Parenteral Nutrition/Amino Acids/Dextrose 1,800 ml @ 75 mls/hr TPN CONT IV Last administered on 11/22/20at 21:37; Start 11/22/20 at 22:00; Stop 11/23/20 at 21:59; Status DC Potassium Chloride/Water 100 ml @ 100 mls/hr 1X ONCE IV Last administered on 11/22/20at 15:20; Start 11/22/20 at 16:00; Stop 11/22/20 at 16:59; Status DC Albuterol Sulfate (Ventolin Neb Soln) 2.5 mg PRN Q4HRS PRN NEB SHORTNESS OF BREATH Last administered on 11/23/20at 11:53; Start 11/23/20 at 09:15 Potassium Phosphate 15 mmol/ Sodium Chloride 255 ml @ 127.5 mls/ hr 1X ONCE IV Last administered on 11/23/20at 10:39; Start 11/23/20 at 11:00; Stop 11/23/20 at 12:59; Status DC Potassium Acetate 50 meq/Potassium Phosphate 21 mmol/ Magnesium Sulfate 10 meq/Calcium Gluconate 10 meq/ Multivitamins 5 ml/Zinc/Copper/ Manganese/ Selen ium 1 ml/ Thiamine HCl 100 mg/Folic Acid 1 mg/Total Parenteral Nutrition/Amino Acids/Dextrose 1,800 ml @ 75 mls/hr TPN CONT IV Last administered on 11/23/20at 21:54; Start 11/23/20 at 22:00; Stop 11/24/20 at 18:59; Status DC Amlodipine Besylate (Norvasc) 10 mg DAILY PO Last administered on 12/06/20at 08:24; Start 11/24/20 at 09:00 Amlodipine Besylate (Norvasc) 10 mg 1X ONCE PO Last administered on 11/23/20at 10:03; Start 11/23/20 at 10:00; Stop 11/23/20 at 10:01; Status DC Labetalol HCl (Normodyne Iv Push) 20 mg PRN Q4HRS PRN IVP HYPERTENSION Last administered on 11/24/20at 09:24; Start 11/24/20 at 09:30; Stop 11/24/20 at 10:40; Status DC Enalaprilat (Vasotec Inj) 2.5 mg PRN Q6HRS PRN IVP HYPERTENSION-2ND CHOICE Last administered on 11/26/20at 09:40; Start 11/24/20 at 10:15 Labetalol HCl (Normodyne Iv Push) 20 mg PRN Q2HR PRN IVP HYPERTENSION Last administered on 12/02/20at 17:02; Start 11/24/20 at 10:45 Magnesium Sulfate 50 ml @ 25 mls/hr 1X ONCE IV Last administered on 11/24/20at 11:03; Start 11/24/20 at 12:00; Stop 11/24/20 at 13:59; Status DC Potassium Acetate 50 meq/Potassium Phosphate 21 mmol/ Magnesium Sulfate 10 meq/Calcium Gluconate 10 meq/ Multivitamins 5 ml/Zinc/Copper/ Manganese/ Selenium 1 ml/ Thiamine HCl 100 mg/Folic Acid 1 mg/Total Parenteral Nutrition/Amino Acids/Dextrose 1,800 ml @ 75 mls/hr TPN CONT IV ; Start 11/24/20 at 22:00; Stop 11/24/20 at 18:59; Status DC Insulin Human Lispro (HumaLOG) 0-5 UNITS TIDWMEALS SQ ; Start 11/24/20 at 17:00; Stop 11/24/20 at 12:43; Status DC Dextrose (Dextrose 50%-Water Syringe) 12.5 gm PRN Q15MIN PRN IV SEE COMMENTS; Start 11/24/20 at 12:45; Status Cancel Nicardipine HCl 50 mg/Sodium Chloride 250 ml @ 25 mls/hr CONT PRN IV SEE I/O RECORD Last administered on 11/24/20at 22:35; Start 11/24/20 at 12:45; Stop 12/01/20 at 12:13; Status DC Insulin Human Lispro (HumaLOG) 0-7 UNITS TIDWMEALS SQ ; Start 11/24/20 at 17:00; Stop 11/24/20 at 18:58; Status DC Dextrose (Dextrose 50%-Water Syringe) 12.5 gm PRN Q15MIN PRN IV SEE COMMENTS; Start 11/24/20 at 12:45; Stop 11/30/20 at 15:02; Status DC Insulin Human Lispro (HumaLOG) 0-7 UNITS Q6HRS SQ Last administered on 11/28/20at 11:23; Start 11/25/20 at 00:00; Stop 11/30/20 at 11:50; Status DC Ibuprofen (Motrin) 600 mg PRN Q6HRS PRN PO INFLAMMATION Last administered on 12/03/20at 01:16; Start 11/25/20 at 11:15 Magnesium Sulfate 50 ml @ 25 mls/hr 1X ONCE IV Last administered on 11/25/20at 14:02; Start 11/25/20 at 12:00; Stop 11/25/20 at 13:59; Status DC Magnesium Sulfate 50 ml @ 25 mls/hr 1X ONCE IV ; Start 11/26/20 at 13:45; Stop 11/26/20 at 15:44; Status DC Metronidazole 100 ml @ 100 mls/hr Q8HRS IV Last administered on 11/29/20at 0 6:25; Start 11/26/20 at 14:00; Stop 11/29/20 at 09:12; Status DC Cefepime HCl (Maxipime) 1 gm Q8HRS IVP Last administered on 11/29/20at 06:24; Start 11/26/20 at 14:00; Stop 11/29/20 at 09:12; Status DC Linezolid/Dextrose 300 ml @ 300 mls/hr Q12HR IV Last administered on 11/28/20at 10:13; Start 11/26/20 at 21:00; Stop 11/28/20 at 11:35; Status DC Micafungin Sodium 100 mg/Dextrose 100 ml @ 100 mls/hr Q24H IV Last administered on 11/27/20at 14:22; Start 11/26/20 at 14:00; Stop 11/28/20 at 11:35; Status DC Potassium Chloride (Klor-Con) 40 meq 1X ONCE PO Last administered on 11/27/20at 06:36; Start 11/27/20 at 07:00; Stop 11/27/20 at 07:01; Status DC Magnesium Sulfate 100 ml @ 50 mls/hr 1X ONCE IV Last administered on 11/27/20at 06:37; Start 11/27/20 at 07:00; Stop 11/27/20 at 08:59; Status DC Lactulose (Lactulose) 20 gm DAILY FT Last administered on 11/28/20at 10:18; Start 11/28/20 at 09:00; Stop 11/29/20 at 10:29; Status DC Pantoprazole Sodium (PROTONIX VIAL for IV PUSH) 40 mg DAILY IVP Last adminis tered on 11/30/20at 08:32; Start 11/28/20 at 07:30; Stop 11/30/20 at 11:29; Status DC Potassium Chloride/Water 100 ml @ 100 mls/hr 1X ONCE IV Last administered on 11/28/20at 11:02; Start 11/28/20 at 11:30; Stop 11/28/20 at 12:29; Status DC Fluoxetine HCl (PROzac) 20 mg BID PEG Last administered on 11/30/20at 08:32; Start 11/28/20 at 21:00; Stop 11/30/20 at 20:42; Status DC Info (Non-Icu Electrolyte Protocol) 1 ea CONT PRN PRN MC SEE COMMENTS; Start 11/28/20 at 13:00 Magnesium Sulfate 50 ml @ 25 mls/hr 1X ONCE IV Last administered on 11/28/20at 16:07; Start 11/28/20 at 16:00; Stop 11/28/20 at 17:59; Status DC Thiamine Mononitrate (Vitamin B-1) 100 mg DAILY PEG Last administered on 12/06/20at 08:23; Start 11/29/20 at 09:00 Folic Acid (Folic Acid) 1 mg DAILY PEG Last administered on 12/06/20at 08:23; Start 11/29/20 at 09:00 Multivitamins/ Minerals Therapeutic (Centrum Multivit-Mineral Liq) 5 ml DAILY PEG Last administered on 12/02/20at 10:43; Start 11/29/20 at 09:00; Stop 12/02/20 at 11:20; Status DC Amoxicillin/ Clavulanate Potassium (Augmentin 875/ 125mg) 1 tab BID PO Last administered on 12/06/20at 08:23; Start 11/29/20 at 21:00; Stop 12/09/20 at 21:59 Lactulose (Lactulose) 20 gm PRN DAILY PRN FT constipation; Start 11/29/20 at 10:30; Stop 11/30/20 at 11:29; Status DC Potassium Chloride (Klor-Con) 40 meq 1X ONCE PO Last administered on 11/29/20at 13:56; Start 11/29/20 at 13:30; Stop 11/29/20 at 13:31; Status DC Magnesium Sulfate 50 ml @ 25 mls/hr 1X ONCE IV Last administered on 11/29/20at 13:56; Start 11/29/20 at 13:30; Stop 11/29/20 at 15:29; Status DC Lactulose (Lactulose) 20 gm PRN BID PRN PO constipation; Start 11/30/20 at 11:30 Pantoprazole Sodium (Protonix) 40 mg DAILYAC PO Last administered on 12/06/20at 08:23; Start 12/01/20 at 07:30 Insulin Human Lispro (HumaLOG) 0-7 UNITS TIDACHC SQ ; Start 11/30/20 at 12:00 Dextrose (Dextrose 50%-Water Syringe) 12.5 gm PRN Q15MIN PRN IV SEE COMMENTS; Start 11/30/20 at 12:00 Potassium Chloride (Klor-Con) 20 meq DAILYWBKFT PO Last administered on 12/06/20 08:23; Start 11/30/20 at 12:30 Magnesium Sulfate 50 ml @ 25 mls/hr 1X ONCE IV Last administered on 11/30/20at 12:49; Start 11/30/20 at 13:00; Stop 11/30/20 at 14:59; Status DC Fluoxetine HCl (PROzac) 20 mg BID PO Last administered on 12/06/20 08:23; Start 11/30/20 at 21:00 Gabapentin (Neurontin) 100 mg TID PO Last administered on 12/06/20 08:24; Start 12/01/20 at 14:00 Lorazepam (Ativan) 0.5 mg PRN Q8HRS PRN PO ANXIETY / AGITATION; Start 12/01/20 at 12:15 Lactobacillus Rhamnosus (Culturelle) 1 cap BID PO Last administered on 12/06/20 08:23; Start 12/01/20 at 14:00 Multivitamins (Thera M Plus) 1 tab DAILY PO Last administered on 12/06/20 08:23; Start 12/03/20 at 09:00 Tramadol HCl (Ultram) 50 mg PRN Q6HRS PRN PO PAIN Last administered on 12/06/20 08:23; Start 12/02/20 at 11:30 Nystatin (Mycostatin) 1 jenny BID TP Last administered on 12/06/20 08:24; Start 12/04/20 at 17:00 Active Scripts Active Reported Multivitamins (Multivitamin) 1 Each Tablet 1 Each PO DAILY Tramadol Hcl 50 Mg Tablet 50 Mg PO Q6HRS PRN Vitals/I & O Vital Sign - Last 24 Hours 12/05/20 12/05/20 12/05/20 12/05/20 11:00 11:07 11:37 15:00 Temp 99.3 98.8 99.3 98.8 Pulse 89 94 Resp 18 16 18 B/P (MAP) 140/76 (97) 140/75 (96) Pulse Ox 95 95 O2 Delivery Room Air Room Air Room Air Room Air 12/05/20 12/05/20 12/05/20 12/06/20 19:05 19:49 23:41 00:47 Temp 98.5 98.4 98.5 98.4 Pulse 95 99 Resp 16 16 16 B/P (MAP) 133/72 (92) 144/84 (104) Pulse Ox 94 94 O2 Delivery Room Air Room Air Room Air Room Air 12/06/20 12/06/20 12/06/20 12/06/20 01:17 03:24 07:00 08:24 Temp 98.7 99.1 98.7 99.1 Pulse 90 86 90 Resp 18 16 18 B/P (MAP) 131/82 (98) 131/76 (94) 131/82 Pulse Ox 93 97 O2 Delivery Room Air Room Air Room Air Intake and Output 12/05/20 12/05/20 12/06/20 15:00 23:00 07:00 Intake Total 700 ml 300 ml 300 ml Balance 700 ml 300 ml 300 ml Justicifation of Admission Dx: Justifications for Admission: Justification of Admission Dx: Yes Sepsis: Altered Mental Status Altered Mental Status: Altered Mental Status MADDISON COLE MD December 06, 2020 09:29
[2020-12-06 11:00] VITALS: BP 136/76
--- NOTE | 2020-12-06 12:19 | PDOC ---
Date of Service: DATE: 12/06/20 TIME: 12:17 Subjective: Subjective: Feels fine, just tired. Objective: Objective: Plans for HH on DC. Vital Signs: Vital Signs Date Time Temp Pulse Resp B/P (MAP) Pulse Ox O2 Delivery O2 Flow Rate FiO2 12/06/20 11:00 99.6 97 18 136/76 (96) 95 Room Air 99.6 12/06/20 08:00 2.0 Labs: Laboratory Tests Test 12/05/20 15:48 12/05/20 20:57 12/06/20 07:44 12/06/20 10:46 Glucose (Fingerstick) 108 mg/dL (70-99) 102 mg/dL (70-99) 86 mg/dL (70-99) 109 mg/dL (70-99) PE: GEN: NAD LUNGS: CTAB HEART: RRR ABD: S/ND/NT NEURO/PSYCH: A & O 3 - was asleep A/P: Alcoholic liver disease H/o gastric bypass, ulcers -- Awaiting DC. No alcohol. Continue PPI and Xifaxan (or lactulose). Justicifation of Admission Dx: Justifications for Admission: Justification of Admission Dx: Yes Sepsis: Altered Mental Status Altered Mental Status: Altered Mental Status CHAVA DUKE December 06, 2020 12:19
[2020-12-06 15:00] VITALS: BP 143/82
[2020-12-06] MEDS ORDERED: AMOX1TAB11 PO (16:26)
[2020-12-06] MEDS ORDERED: LACT1CAP2 PO (16:26)
[2020-12-06] MEDS ORDERED: FLUO20CA20 PO (16:26)
[2020-12-06] MEDS ORDERED: GABA-585 PO (16:26)
[2020-12-06] MEDS ORDERED: PANT40TA77 PO (16:26)
[2020-12-06] MEDS ORDERED: THIA100T22 PO (16:26)
[2020-12-06] MEDS ORDERED: LACT20SO PO (16:26)
[2020-12-06] MEDS ORDERED: NYST15CR TP (16:26)
[2020-12-06] MEDS ORDERED: FOLI0.4T5 PO (16:26)
[2020-12-06] MEDS ORDERED: NON FORMULARY ITEM (Lactobacillus Acidophilus (Acidophilus) 1 CAP) PO SCH (21:00)
[2020-12-06] MEDS ORDERED: NYSTATIN 100,000 UNIT/GM TOPICAL CREAM 15GM TUBE. TP SCH (21:00)
[2020-12-06] MEDS ORDERED: FLUoxetine HCL 20 MG CAPSULE PO SCH (21:00)
[2020-12-06] MEDS ORDERED: LACTULOSE 20 GM/30 ML SOLUTION. PO SCH (21:00)
[2020-12-06] MEDS ORDERED: GABAPENTIN 100 MG CAPSULE. PO SCH (21:00)
[2020-12-06] MEDS ORDERED: AMOXICILLIN/K CLAV 875/125MG TABLET. PO SCH (21:00)
[2020-12-07] MEDS ORDERED: PANTOPRAZOLE 40 MG TABLET.DR. PO SCH (07:30)
[2020-12-07] MEDS ORDERED: THIAMINE 100 MG TABLET. PO SCH (09:00)
[2020-12-07] MEDS ORDERED: FOLIC ACID 1 MG PO SCH (09:00)
[2020-12-07] MEDS ORDERED: NON FORMULARY ITEM (Multivitamin (Multivitamins) 1 EACH) PO SCH (09:00)
== END 2020-12-06 19:40 | disposition home or self-care (01) | DRG 871 ==
LOC: 1 WEST ICU 15:53 → 6 SOUTH 11-28 12:35
PROVIDERS: ADMIT Internal Medicine; ATTEND Internal Medicine
PROC: 30233N1 Transfusion of Nonautologous Red Blood Cells into Peripheral Vein, Percutaneous Approach (ICD-10-PCS; principal; 2020-11-18)
PROC: 02HV33Z Insertion of Infusion Device into Superior Vena Cava, Percutaneous Approach (ICD-10-PCS; 2020-11-20)
DX: A41.9 Sepsis, unspecified organism (principal); G93.41 Metabolic encephalopathy; K72.00 Acute and subacute hepatic failure without coma; E43 Unspecified severe protein-calorie malnutrition; B37.1 Pulmonary candidiasis; J69.0 Pneumonitis due to inhalation of food and vomit; J90 Pleural effusion, not elsewhere classified; D68.9 Coagulation defect, unspecified; K82.1 Hydrops of gallbladder; D62 Acute posthemorrhagic anemia; E87.0 Hyperosmolality and hypernatremia; E87.1 Hypo-osmolality and hyponatremia; N17.9 Acute kidney failure, unspecified; D69.6 Thrombocytopenia, unspecified; E83.42 Hypomagnesemia; I10 Essential (primary) hypertension; F32.9 Major depressive disorder, single episode, unspecified; K21.9 Gastro-esophageal reflux disease without esophagitis; F41.9 Anxiety disorder, unspecified; K70.10 Alcoholic hepatitis without ascites; F17.210 Nicotine dependence, cigarettes, uncomplicated; K76.0 Fatty (change of) liver, not elsewhere classified; E66.01 Morbid (severe) obesity due to excess calories; E83.51 Hypocalcemia; Z68.34 Body mass index [BMI] 34.0-34.9, adult; E87.6 Hypokalemia; F10.20 Alcohol dependence, uncomplicated; G89.29 Other chronic pain; K58.9 Irritable bowel syndrome, unspecified; K74.60 Unspecified cirrhosis of liver; K80.20 Calculus of gallbladder without cholecystitis without obstruction; Z20.822 Contact with and (suspected) exposure to COVID-19; Z87.11 Personal history of peptic ulcer disease; Z98.84 Bariatric surgery status; Z93.1 Gastrostomy status
CPT/HCPCS: 36415; 36430; 36569; 36600; 71045; 74018; 76700; 76881; 80053; 80069; 80076; 81025; 82140; 82306; 82310; 82550; 82607; 82805; 82962; 83605; 83735; 84100; 84145; 84439; 84478; 84484; 85014; 85018; 85025; 85027; 85610; 86695; 86696; 86705; 86709; 86787; 86803; 86850; 86900; 86901; 86920; 87040; 87086; 87106; 87340; 87426; 87493; 93005; 93306; 93971; 94640; C9113; J0610; J0692; J0878; J1815; J2020; J2060; J2248; J2354; J2405; J2543; J3010; J3411; J3430; J3475; J3480; J3490; J7030; J7050; J7060; P9016; P9045; P9046; U0003; U0005; 92526-GN; 92610-GN; 97110-GP; 97116-GP; 97530-GO; 97530-GP; 97535-GO; G0378; J7613